=== PATIENT | female | born 1950 | race Caucasian/White ===

== ENCOUNTER → 2016-03-21 | Outpatient (CLI) | payer BC ==
--- NOTE | 2016-03-21 15:33 | BD ---
EXAMINATION TYPE: MG DEXA axial skeleton. DATE OF EXAM: 03/21/2016 9:51 AM CLINICAL HISTORY: 65-year-old female osteoporosis Height: 70 inches Weight: 167 pounds FRAX RISK QUESTIONS: Alcohol (3 or more units per day): no Family History (Parent hip fracture): unsure if mother broke hip Glucocorticoids (More than 3mos): no (Ex: prednisone, prednisolone, methylprednisolone, dexamethasone, and hydrocortisone). History of Fracture in Adulthood: yes Secondary Osteoporosis: 1. Type 1 Diabetes: no 2. Hyperthyroidism: no 3. Menopause before 45: no 4. Malnutrition: no 5. Chronic liver disease: no Rheumatoid Arthritis: no Current Tobacco Use: no RISK FACTORS HISTORY OF: History of Fracture: yes, ankle & thumb When: 2016 Family History of Osteoporosis: unsure Drink Alcohol: socially Active: no Diet low in dairy products/other sources of calcium: no Postmenopausal woman: yes Take estrogen and/or progesterone medications: no Lost more than 2 inches in height since high school: no Frequent falls: no Poor Health: no Hyperparathyroidism: no Adrenal Insufficiency: no MEDICATIONS: Prednisone or other steroids: no Thyroid Medications: no Osteoporosis Medications: no Additional Medications: blood pressure meds, cholesterol meds EXAM MEASUREMENTS: Bone mineral densitometry was performed using the [employer] System. Bone mineral density as measured about the Lumbar spine is: ----- L1-L4(G/cm2): 1.039 T Score Values are as follows: ----- L2: -1.5 ----- L3: -1.1 ----- L4: -1.2 ----- L1-L4: -1.2 Bone mineral density has: Increased 3.6% since study of: 12/01/2009 Bone mineral density about the R hip (g/cm2): 0.924 Bone mineral density about the L hip (g/cm2): 0.939 T Score values are as follows: -----R Neck: -0.7 -----L Neck: -0.8 -----R Intertrochanter: 0.0 -----L Intertrochanter: -1.0 Bone mineral density has: Decreased -5.1% since study of: 12/01/2009 IMPRESSION: Osteopenia is indicated by T score values in the lumbar spine. There is slightly increased risk of fracture and the patient may be considered for treatment. Re-Screen 2-5 years. NOTE: T-SCORE=SD OF THE YOUNG ADULT MEAN.
== END | disposition home or self-care (01) ==
LOC: RADBDWWP 09:05
PROVIDERS: ATTEND Family Medicine
DX: M85.88 Other specified disorders of bone density and structure, other site (principal)
CPT/HCPCS: 77080

== ENCOUNTER → 2016-12-28 | Outpatient (CLI) | payer BC ==
--- NOTE | 2016-12-31 08:00 | MM ---
Reason for exam: additional evaluation requested from prior study. Last mammogram was performed 5 years and 7 months ago. History: Patient is postmenopausal. Benign excisional biopsy of the right breast, 1989. 4 cyst aspirations of the right breast. Taking unspecified hormones for 1 year 6 months beginning at age 53. Physical Findings: Nurse did not find any significant physical abnormalities on exam. MG 3D Diag Mammo W/Cad CHRISTI Bilateral CC and MLO view(s) were taken. Prior study comparison: June 08, 2011, bilateral digital screening mammo w/CAD. October 30, 2007, bilateral digital screening mammogram. There are scattered fibroglandular densities. Finding: There is increasing architectural distortion in the upper outer quadrant of the right breast. These results were verbally communicated with the patient and result sheet given to the patient on 12/28/16. ASSESSMENT: Incomplete: need additional imaging evaluation, BI-RAD 0 RECOMMENDATION: Ultrasound of the right breast.
--- NOTE | 2016-12-31 08:05 | USB ---
Reason for exam: additional evaluation requested from abnormal screening. History: Patient is postmenopausal. Benign excisional biopsy of the right breast, 1989. 4 cyst aspirations of the right breast. Taking unspecified hormones for 1 year 6 months beginning at age 53. US Breast Limited RT Right breast ultrasound demonstrates a 2.3 x 2.2 x 2.1cm irregular, solid, shadowing lesion at 10 o'clock. These results were verbally communicated with the patient and result sheet given to the patient on 12/28/16. ASSESSMENT: Suspicious, BI-RAD 4 RECOMMENDATION: Ultrasound core biopsy of the right breast. Called Dr. Castañeda with mammographic findings and has scheduled an appointment for the patient for 01/31/17 at 9:[address] Moran. Biopsy scheduled for 01/10/17 at 12:20. PRELIMINARY REPORT CALLED AND FAXED TO DR. MORAN ON 12/31/16.
== END | disposition home or self-care (01) ==
LOC: RADMAMWWP 13:26
PROVIDERS: ATTEND Family Medicine
DX: N63.0 Unspecified lump in unspecified breast (principal); R92.8 Other abnormal and inconclusive findings on diagnostic imaging of breast
CPT/HCPCS: 76642; G0204; G0279

== ENCOUNTER 2017-02-06 07:50 | Day surgery (SDC) | payer BC ==
[2017-01-31 15:09] VITALS: BMI 24.0
[~2017-02-06 07:50] MED LIST: ALPRAZolam 0.5 MG TAB PO PRN; HEPARIN SODIUM,PORCINE 5,000 UNIT/ML 1 ML VIAL SQ ONE; HYDROmorphone 1 MG/ML 1 ML SYRINGE IVP PRN; LACTATED RINGERS 1,000 ML IV SCH; ONDANSETRON 4 MG/2 ML VIAL IVP PRN; Pre Op ABX Message 1 EACH MISC MISCELLANE ONE
[2017-02-06] MEDS ORDERED: LIDOCAINE 1% 20 ML VIAL (10MG/ML) FOR IV START INTRADERMA ONE (09:25)
[2017-02-06] MEDS ORDERED: ALPRAZolam 0.5 MG TAB PO ONE (09:31)
[2017-02-06] MEDS ORDERED: LIDOCAINE 1% INJ 10MG/ML (20 ML MDV) SQ ONE (09:47)
[2017-02-06 10:09] VITALS: RESP 16
--- NOTE | 2017-02-06 10:38 | NM ---
EXAMINATION TYPE: NM sentinel node injection DATE OF EXAM: 02/06/2017 COMPARISON: 01/10/2017 HISTORY: Right breast carcinoma with request for sentinel lymph node injection. TECHNIQUE AND FINDINGS: The procedure of sentinel lymph node injection was explained to the patient. The benefits, alternatives, and risks were discussed. An informed consent was then obtained. Overlying skin is cleaned with sterile alcohol. Lidocaine buffered with bicarbonate was used as anes thetic into the skin and subcutaneous tissue surrounding the nipple. Following this, 514 uCi Tc 99m Filtered Sulfur Colloid was injected into 4 equivalent doses at 12, 3, 6, and 9:00 position surroundi ng the right nipple intradermally. The injection sites were massaged by nuclear instructor for 10 minutes after injection. T he patient tolerated the procedure well without any immediate complication. The patient was kept in the radiology department for short stay after the procedure and then taken to surgery for surgical pr ocedure what is presumed intraoperative gamma probe will be used for sentinel lymph node detection. IMPRESSION: Right breast radiotracer injection for sentinel node localization as above.
[2017-02-06] MEDS ORDERED: ceFAZolin 1,000 MG VIAL ONE (11:03)
[2017-02-06] MEDS ORDERED: MIDAZOLAM 2 MG/2 ML VIAL ONE (11:03)
[2017-02-06] MEDS ORDERED: fentaNYL (PF) 50 MCG/ML 2 ML AMP ONE (11:03)
[2017-02-06] MEDS ORDERED: ePHEDrine SULFATE/0.9% NACL/PF 50 MG/5 ML SYRINGE IV ONE (11:03)
[2017-02-06] MEDS ORDERED: HYDROmorphone (PF) 1 MG/ML ONE (11:03)
[2017-02-06] MEDS ORDERED: LIDOCAINE 1% INJ 10MG/ML (20 ML MDV) ONE (11:03)
[2017-02-06] MEDS ORDERED: PROPOFOL 10 MG/ML 20 ML VIAL IV ONE (11:03)
[2017-02-06] MEDS ORDERED: METHYLENE BLUE 10 MG/ML (10 ML VIAL) MISCELLANE ONE (11:14)
[2017-02-06] MEDS ORDERED: SODIUM CHLORIDE 0.9% 100 ML with ceFAZolin 2,000 MG IV ONE ×2 (11:20)
[2017-02-06] MEDS ORDERED: LACTATED RINGERS 1,000 ML IV ONE (12:21)
[2017-02-06 13:17] VITALS: TEMP 97.4
[2017-02-06] MEDS ORDERED: HYDROcodone/APAP 5-325MG 1 EACH TAB PO PRN (13:17)
[2017-02-06] MEDS ORDERED: NALOXONE 0.4 MG/ML 1 ML VIAL IV PRN (13:17)
--- NOTE | 2017-02-06 13:39 | P.OP ---
Date of Procedure: 02/06/17 Procedure(s) Performed: PREOPERATIVE DIAGNOSIS: Right breast cancer POSTOPERATIVE DIAGNOSIS: Same PROCEDURE: Right Breast wire localization lumpectomy with sentinel lymph node biopsy and BioSorb placement SURGEON: Luisa EBL: Minimal ANESTHESIA: General COMPLICATIONS: None OPERATIVE PROCEDURE: Patient was placed on the operating room table in the supine position. 2 mL of methylene blue was injected into the subareolar space. The breast was then massaged for 5 minutes. The right axilla was addressed at that time. The hot spot in the right axilla was identified. A small curvilinear incision was made using the scalpel. Dissection down through the subcutaneous tissues took place using electrocautery. Using the neoprobe I identified a single hot and blue lymph node. This was sent to pathology for frozen section and was negative for malignancy. The subcutaneous tissues were closed using 3-0 Vicryl sutures. The skin was closed using 4-0 Monocryl sutures. The wire entrance site was then addressed. This was present at the 8: 00 location. A curvilinear incision was made adjacent to the wire entrance site. I followed the wire down into the breast tissue. An generous lumpectomy specimen then took place around the wire and palpable mass. Margins of 1-2 cm worth attempted to be achieved. Clinically I was concerned about the proximity of the palpable mass to the lateral and posterior margin. Once the lumpectomy was removed and additional posterior lateral margin was excised. The initial lumpectomy was painted the appropriate 6 colors. The new posterior and lateral margin were painted the corresponding color as well. The BioSorb sizers were utilized. The 3 x 4 cm BioSorb was placed within the lumpectomy cavity and sutured to the surrounding tissues using 3-0 Vicryl sutures. The lumpectomy cavity was closed using 3-0 Vicryl sutures. The skin was closed using a running 4-0 Monocryl stitch. Steri-Strips and sterile dressings were applied. DISPOSITION: Stable to recovery room
--- NOTE | 2017-02-06 14:00 | MM ---
EXAMINATION TYPE: MG pre op needle loc RT, MG surgical specimen RT DATE OF EXAM: 02/06/2017 COMPARISON: Exams dating back to 12/28/2016 CLINICAL HISTORY: Right breast cancer at the 10:00 position TECHNIQUE: Needle localization with wire placement and surgical excision of area of concern in the right breast. FINDINGS: The procedure of needle localization with wire placement and than surgical excision was explained to the patient. Benefits, alternatives, and risks were discussed. An informed consent was then obtained. The shortest pathway for procedure was chosen. Shortest pathway was lateral to medial approach. The overlying skin was prepped and draped in usual sterile fashion. 10 cc of 1% lidocaine was anesthetic into the skin and subcutaneous tissue up to the level of area of concern. A 7 cm needle was used. It was placed via a lateral to medial approach under mammographic guidance. Subsequent 90 degrees mammogram show the needle to be in satisfactory position relative to the targeted area (mammographic mass in ribbon biopsy marker). At this point, wire was placed and the needle was withdrawn. The wire was fixed to patient's skin. Images were marked for surgeon. The patient tolerated the procedure well without any immediate complication. The patient was kept in the radiology department for short stay after the procedure and then taken to surgery for surgical excision. Targeted mammographic spiculated mass and ribbon-shaped biopsy marker as well as the wire are identified in specimen mammogram. IMPRESSION: Successful, uncomplicated needle localization with wire placement and surgical excision of the biopsy-proven invasive ductal carcinoma at the 10: 00 position within the right breast, full pathology results to follow. Pathology Results: Malignant A. SENTINEL LYMPH NODE #1, BIOPSY: LYMPH NODE NEGATIVE FOR METASTASIS. CK7 AND HAILEY IMMUNOPEROXIDASE STAINS ARE CONFIRMATORY (CONTROLS APPROPRIATE). B. BREAST, RIGHT, LUMPECTOMY: INVASIVE DUCTAL CARCINOMA INVOLVING THE ORANGE INKED (LATERAL) MARGIN. FOCAL DUCTAL CARCINOMA IN SITU (DCIS), MARGINS NEGATIVE. SEE SURGICAL PATHOLOGY CANCER CASE SUMMARY AND COMMENT. Recommendation Surgical consult of the right breast. (treatment and follow up) [facility]
[2017-02-06] MEDS ORDERED: HYDROcodone/APAP 5-325MG 1 EACH TAB PO ONE (14:55)
[2017-02-06 15:32] VITALS: BP 117/60; PULSE 83
--- NOTE | 2017-02-09 15:55 | CDI ---
Outpatient Documentation Clarification Form Date: 02/09/17 CDS/Manager Lvn Name: Ophelia Rogers Phone: If you have question, contact Leatha Mims Regulatory Submissions Specialist at M-F 8:30 am to 6pm. Patient Name: RELL LOPEZ Admit Date: 02/06/17 Discharge Date: 02/06/17 ATTENTION: The Clinical Documentation Specialists (CDI) and [facility] Coding Staff appreciate your assistance in clarifying documentation. Please respond to the clarification below the line at the bottom and electronically sign. The CDI & [facility] Coding staff will review the response and follow-up if needed. Please note: Queries are made part of the Legal Health Record. If you have any questions, please contact the author of this message via ITS or call the Regulatory Submissions Specialist. Dr. Moran, What is the depth of sentinel lymph node biopsy? For coding purposes, we need to know if it was deep or superficial. The operative report just states dissection down through the subcutaneous tissues, which isnt enough information to determine if it was deep or superficial. ___ For sentinel lymph node biopsies these would be considered deep dissections. Please do not query me again in the future regarding sentinel lymph node biopsies and assume that these were deep. Refer to CPT code 57755. MTDD
== END 2017-02-06 15:36 | disposition home or self-care (01) ==
LOC: OR 07:50
PROVIDERS: ATTEND Surgery
DX: C50.411 Malignant neoplasm of upper-outer quadrant of right female breast (principal); Z17.0 Estrogen receptor positive status [ER+]; I10 Essential (primary) hypertension; E78.5 Hyperlipidemia, unspecified; J68.0 Bronchitis and pneumonitis due to chemicals, gases, fumes and vapors; F41.9 Anxiety disorder, unspecified; F32.9 Major depressive disorder, single episode, unspecified; K21.9 Gastro-esophageal reflux disease without esophagitis; Z79.899 Other long term (current) drug therapy; Z79.2 Long term (current) use of antibiotics; Z80.0 Family history of malignant neoplasm of digestive organs
CPT/HCPCS: 19301; 88342; 88331; 88307; 88341; 76098; 19281; 38792; 38525; A4648; A9541; J2250; J1644; J2405; J0690; J2001; Q9968; J3010; J1170; J2704

== ENCOUNTER → 2017-06-06 | Outpatient (CLI) | payer BC ==
--- NOTE | 2017-06-06 14:38 | BD ---
EXAMINATION TYPE: MG DEXA axial skeleton. DATE OF EXAM: 06/06/2017 COMPARISON: 2017 CLINICAL HISTORY: Postmenopausal female. Osteoporosis screening. Height: 5 ft 8 1/4 in Weight: 156 FRAX RISK QUESTIONS: Alcohol (3 or more units per day): NO Family History (Parent hip fracture): YES Glucocorticoids (More than 3mos): NO (Ex: prednisone, prednisolone, methylprednisolone, dexamethasone, and hydrocortisone). History of Fracture in Adulthood: YES Secondary Osteoporosis: 1. Type 1 Diabetes: NO 2. Hyperthyroidism: NO 3. Menopause before 45: NO 4. Malnutrition: NO 5. Chronic liver disease: NO Rheumatoid Arthritis: NO Current Tobacco Use: NO RISK FACTORS HISTORY OF: Family History of Osteoporosis: NO Active: YES Postmenopausal woman: AGE EARLY 50'S MEDICATIONS: Additional Medications: BENICAR, ZOCOR,ADIVAN, ZOLOFT, FEMARA, Additional History: BREAST CANCER 2016 RADIATION JUST FINISHED APRIL 2017 EXAM MEASUREMENTS: Bone mineral densitometry was performed using the [employer] System. Bone mineral density as measured about the Lumbar spine is: ----- L1-L4(G/cm2): 1.062 T Score Values are as follows: ----- L2: -1.3 ----- L3: -1.1 ----- L4: -0.6 ----- L1-L4: -1.0 Bone mineral density has: INCREASED 3.1 % since study of: 2017 Bone mineral density about the R hip (g/cm2): 0.950 Bone mineral density about the L hip (g/cm2): 0.886 T Score values are as follows: -----R Neck: -1.1 -----L Neck: -0.6 -----R Total: -0.5 -----L Total: -1.0 Bone mineral density has: DECREASED -4.1 % since study of: 2017 IMPRESSION: Osteopenia (T Score between -2.5 and -1). There is slightly increased risk of fracture and the patient may be considered for treatment. Re-Screen 2-5 years. NOTE: T-SCORE=SD OF THE YOUNG ADULT MEAN.
== END | disposition home or self-care (01) ==
LOC: RADBDWWP 09:03
PROVIDERS: ATTEND Internal Medicine Hematology & Oncology
DX: C50.411 Malignant neoplasm of upper-outer quadrant of right female breast (principal); M85.88 Other specified disorders of bone density and structure, other site; N95.1 Menopausal and female climacteric states; Z79.899 Other long term (current) drug therapy
CPT/HCPCS: 77080

== ENCOUNTER → 2017-10-22 | Outpatient (CLI) | payer BC ==
--- NOTE | 2017-10-22 10:53 | MM ---
Reason for exam: additional evaluation requested from prior study. Last mammogram was performed 9 months ago. History: Patient is postmenopausal and has history of breast cancer at age 66. Family history of breast cancer in maternal cousin at age 45. Malignant MG pre op needle loc RT of the right breast, February 06, 2017. Lumpectomy of the right breast, February 06, 2017. Malignant US biopsy breast VAD RT of the right breast, January 10, 2017. Benign excisional biopsy of the right breast, 1989. 4 cyst aspirations of the right breast. Taking unspecified hormones for 1 year 6 months beginning at age 53. Physical Findings: Nurse Summary: 1cm nodule in the right breast at 10-11 o'clock at scar (nurse kp). MG 3D Diag Mammo W/Cad CHRISTI Bilateral CC and MLO view(s) were taken. XCCL view(s) were taken of the right breast. Prior study comparison: January 10, 2017, right breast MG diagnostic mammo RT wo CAD. December 28, 2016, bilateral MG 3d diag mammo w/cad CHRISTI. Post surgical changes right upper quadrant. Benign calcifications in the left breast. Palpable corresponds to biopsy/surgical site. These results were verbally communicated with the patient and result sheet given to the patient on 10/22/17. ASSESSMENT: Probably benign, BI-RAD 3 RECOMMENDATION: Follow-up diagnostic mammogram of both breasts in 1 year.
--- NOTE | 2017-10-22 10:54 | USB ---
Reason for exam: clinical finding. History: Patient is postmenopausal and has history of breast cancer at age 66. Family history of breast cancer in maternal cousin at age 45. Malignant MG pre op needle loc RT of the right breast, February 06, 2017. Lumpectomy of the right breast, February 06, 2017. Malignant US biopsy breast VAD RT of the right breast, January 10, 2017. Benign excisional biopsy of the right breast, 1989. 4 cyst aspirations of the right breast. Taking unspecified hormones for 1 year 6 months beginning at age 53. Indicated problem(s): palpable abnormality in the right breast. US Breast Limited RT Right limited breast ultrasound including focal area of concern, retroareolar and axilla demonstrates a 2.9 x 2.2 x 3.6cm lobular, hypoechoic lesion at 10 o'clock BB and a 0.4 x 0.3 x 0.4cm oval, hypoechoic lesion at the axilla tail. These results were verbally communicated with the patient and result sheet given to the patient on 10/22/17. ASSESSMENT: Probably benign, BI-RAD 3 RECOMMENDATION: Ultrasound of the right breast in 6 months.
== END ==
LOC: RADMAMWWP 09:23
PROVIDERS: ATTEND Radiology Radiation Oncology
DX: C50.411 Malignant neoplasm of upper-outer quadrant of right female breast (principal); Z92.3 Personal history of irradiation
CPT/HCPCS: 77062; 77066

== ENCOUNTER → 2018-04-22 | Outpatient (CLI) | payer BC ==
--- NOTE | 2018-04-22 10:05 | USB ---
Reason for exam: follow-up at short interval from prior study. History: Patient is postmenopausal and has history of breast cancer at age 66. Family history of breast cancer in maternal cousin at age 45. Malignant MG pre op needle loc RT of the right breast, February 06, 2017. Lumpectomy of the right breast, February 06, 2017. Malignant US biopsy breast VAD RT of the right breast, January 10, 2017. Benign excisional biopsy of the right breast, 1989. 4 cyst aspirations of the right breast. Taking unspecified hormones for 1 year 6 months beginning at age 53. Physical Findings: Nurse Summary: scar, palpable lump, thickening (nurse dw). US Breast RT Right complete breast ultrasound includes all four quadrants, the retroareolar region and axilla. Finding demonstrates a 2.6 x 2.1 x 2.9cm hypoechoic lesion at 10 o'clock. Likely reflects bioabsorb material, 6 month follow up recommended. These results were verbally communicated with the patient and result sheet given to the patient on 04/22/18. ASSESSMENT: Probably benign, BI-RAD 3 RECOMMENDATION: Follow-up diagnostic mammogram of both breasts in 6 months. Ultrasound of the right breast in 6 months.
== END ==
LOC: RADUSWWP 08:51
PROVIDERS: ATTEND Surgery
DX: R92.8 Other abnormal and inconclusive findings on diagnostic imaging of breast (principal)

== ENCOUNTER → 2018-05-07 | Outpatient (CLI) | payer BC ==
[2018-05-07 10:14] VITALS: BP 128/58; PULSE 95; RESP 18; TEMP 97.5; BMI 22.2
--- NOTE | 2018-05-07 11:15 | P.HPOB ---
History of Present Illness H&P Date: 05/07/18 Chief Complaint: The patient is here for her routine gynecologic exam. This is a 67-year-old with an LMP of 2003. The patient is here to establish with this office. She states that has been about 5 years since her last pelvic exam. She is without gynecologic complaints and denies any postmenopausal bleeding. She is in the process of breaking up with her boyfriend. She is uncertain if he has been monogamous in their relationship. Review of Systems Her weight has been stable. She denies respiratory, cardiac and G.I. problems. She is currently having some relationship problems with her boyfriend and believes they will be breaking up. This has been an emotional time for her. She denies problems with falling. : she denies any significant problems with urinary leakage. Past Medical History Past Medical History: Cancer, Hyperlipidemia, Hypertension, Osteoarthritis (OA) Additional Past Medical History / Comment(s): 01/2017 RT BREAST CANCER status post lumpectomy and radiation therapy. History of osteopenia. 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 Previous colonization of the cervix in 1988. History of Any Multi-Drug Resistant Organisms: None Reported Past Surgical History: Breast Surgery, Tonsillectomy Additional Past Surgical History / Comment(s): D&C with C 1988, Benign cyst aspirations right breast, Benign excisional biopsy right breast 1989; rt breast lumpectomy 01/2017; COLONOSCOPY 2001. Past Anesthesia/Blood Transfusion Reactions: Previous Problems w/ Anesthesia Additional Past Anesthesia/Blood Transfusion Reaction / Comment(s): "Sensitivity to anesthesia" Past Psychological History: Anxiety, Depression Smoking Status: Never smoker Past Alcohol Use History: Occasional (3 per week) Additional Past Alcohol Use History / Comment(s): Patient states she only smoked a few times in college, did not have a smoking habit. Past Drug Use History: None Reported Additional History: She is single. She has been with her boyfriend since 2009, but is unsure if they will still be together in the near future. - Past Family History Father Family Medical History: Cancer Additional Family Medical History / Comment(s): Colon cancer. Mother Family Medical History: Deep Vein Thrombosis (DVT) Additional Family Medical History / Comment(s): A maternal cousin had breast cancer. A maternal great aunt had ovarian cancer. Medications and Allergies Home Medications Medication Instructions Recorded Confirmed Type LORazepam [Ativan] 1 mg PO DAILY PRN 01/02/17 05/07/18 History Olmesartan/Hydrochlorothiazide 1 tab PO DAILY 01/02/17 05/07/18 History [Benicar Hct 20-12.5 mg Tablet] Sertraline [Zoloft] 100 mg PO DAILY 01/02/17 05/07/18 History Simvastatin [Zocor] 40 mg PO HS 01/02/17 05/07/18 History Hydrocodone/Acetaminophen [[place] 1 - 2 each PO Q4HR PRN #30 tab 02/06/17 05/07/18 Rx 5-325] Calcium Carb-Vit D 500Mg-200Un 1 each PO DAILY 05/07/18 05/07/18 History [Oscal 500+D] Cholecalciferol (Vitamin D3) 2,000 unit PO DAILY 05/07/18 05/07/18 History [Vitamin D3] Allergies Allergy/AdvReac Type Severity Reaction Status Date / Time No Known Allergies Allergy Verified 05/07/18 10:01 Exam Vital Signs Temp Pulse Resp BP Pulse Ox 05/07/18 10:05 97.5 F L 95 18 128/58 98 Intake and Output 05/06/18 05/07/18 05/07/18 22:59 06:59 14:59 Other: Weight 70.307 kg Height 5'10", weight 155 pounds, BMI 22.2. This is a well-developed well-nourished white female who is alert and oriented times 3 in no acute distress. HEENT: Within normal limits. NECK: Supple without mass or thyromegaly. CHEST AND LUNGS: Clear to auscultation. HEART: Regular rate and rhythm. BREASTS: there is a slight indentation at the 10 o'clock position of the right breast consistent with her previous lumpectomy. It is also firm in this area which the patient states has been followed by her doctors after her lumpectomy and radiation. The breasts are nontender. There are no other masses. AXILLARY EXAM: Negative for adenopathy. BACK: Negative for CVA tenderness. ABDOMEN: Soft, nontender, without palpable masses. PELVIC EXAM: Normal external genitalia with mild to moderate atrophy. Cervix and vagina appear normal with moderate atrophy. The cervix is nearly flush with the back of the vagina consistent with her previous conization. The cervix is stenotic secondary to atrophy and the conization. There is no unusual discharge. There is no evidence of prolapse. The uterus is midposition, nongravid size and nontender. There are no palpable adnexal masses or tenderness. RECTAL EXAM: rectovaginal exam is negative for mass or tenderness and is negative for occult blood. EXTREMITIES: Nontender. IMPRESSION: 1. 67-year-old menopausal female with normal gynecologic exam. 2. History of right breast cancer status post lumpectomy and radiation therapy in 2018. 3. History osteopenia. 4. History of previous cold knife conization of the cervix in 1988. PLAN: 1. Because of her history of conization of the cervix and uncertainty of adequacy of screening over the years, we will continue cervical screening. Pap smear was performed. 2. Self breast awareness was discussed with the patient. 3. Breast imaging and cancer screening will be done through her breast cancer doctors. Her last bilateral mammogram was on 10/22/2017 and this will be repeated in one year. 4. GC and Chlamydia screening from the cervix has been obtained. The patient is declining blood STD testing at this time. STD prevention was discussed. Stress the importance of limiting sexual partners and using condoms if she is sexually active. 5. She did receive a flu shot this past fall. 6.Osteoporosis prevention was discussed. I have stressed the importance of adequate calcium, vitamin D and regular exercise. Recommended amounts of calcium and vitamin D were also discussed. Bone density testing will be done through Dr. Rosenthal. Her last one was on 06/06/2017 and showed osteopenia. 7. She's due for colonoscopy and she states she will be seeing Dr. Moran for this. 8.She was advised to return in one year for her annual well woman exam.
[2018-05-08 13:24] LABS: C. trachomatis,PCR Negative (Neg,Equiv); Chlamydia trachomatis Source Cervix; N. gonorrhoeae,PCR Negative (Neg,Equiv); Neisseria Source Cervix
== END | disposition home or self-care (01) ==
LOC: WWCWWP 09:46
PROVIDERS: ATTEND Obstetrics & Gynecology
DX: Z11.3 Encounter for screening for infections with a predominantly sexual mode of transmission (principal)
CPT/HCPCS: 87491; 87591

== ENCOUNTER → 2018-10-23 | Outpatient (CLI) | payer BC ==
--- NOTE | 2018-10-23 10:40 | USB ---
Reason for exam: follow-up at short interval from prior study. History: Patient is postmenopausal and has history of breast cancer at age 66. Family history of breast cancer in maternal cousin at age 45. Malignant MG pre op needle loc RT of the right breast, February 06, 2017. Lumpectomy of the right breast, February 06, 2017. Malignant US biopsy breast VAD RT of the right breast, January 10, 2017. Benign excisional biopsy of the right breast, 1989. 4 cyst aspirations of the right breast. Radiation therapy of the right breast. Taking antineoplastic for 1 year beginning at age 66. Taking unspecified hormones for 1 year 6 months beginning at age 53. US Breast RT Right complete breast ultrasound includes all four quadrants, the retroareolar region and axilla. Finding demonstrates a 2.6 x 2.3 x 1.5cm lesion at 10 o'clock, stable post surgical changes. No new significant cystic or solid lesion greater than 0.5cm. These results were verbally communicated with the patient and result sheet given to the patient on 10/23/18. ASSESSMENT: Benign, BI-RAD 2 RECOMMENDATION: Follow-up diagnostic mammogram of both breasts in 1 year.
--- NOTE | 2018-10-23 10:41 | MM ---
Reason for exam: additional evaluation requested from prior study. Last mammogram was performed 1 year ago. History: Patient is postmenopausal and has history of breast cancer at age 66. Family history of breast cancer in maternal cousin at age 45. Malignant MG pre op needle loc RT of the right breast, February 06, 2017. Lumpectomy of the right breast, February 06, 2017. Malignant US biopsy breast VAD RT of the right breast, January 10, 2017. Benign excisional biopsy of the right breast, 1989. 4 cyst aspirations of the right breast. Radiation therapy of the right breast. Taking antineoplastic for 1 year beginning at age 66. Taking unspecified hormones for 1 year 6 months beginning at age 53. Physical Findings: Nurse did not find any significant physical abnormalities on exam. MG 3D Diag Mammo W/Cad CHRISTI Bilateral CC and MLO view(s) were taken. Prior study comparison: October 22, 2017, bilateral MG 3d diag mammo w/cad CHRISTI. January 10, 2017, right breast MG diagnostic mammo RT wo CAD. The breast tissue is heterogeneously dense. This may lower the sensitivity of mammography. Finding: There is an oval mass in the posterior position of the right breast with anterior scar/distortion. There is no discrete abnormality. New finding since October 22, 2017. These results were verbally communicated with the patient and result sheet given to the patient on 10/23/18. ASSESSMENT: Benign, BI-RAD 2 RECOMMENDATION: Follow-up diagnostic mammogram of both breasts in 1 year.
== END | disposition home or self-care (01) ==
LOC: RADMAMWWP 08:45
PROVIDERS: ATTEND Surgery
DX: R92.8 Other abnormal and inconclusive findings on diagnostic imaging of breast (principal)
CPT/HCPCS: 77062; 77066

== ENCOUNTER 2018-11-20 17:48 | Inpatient (IN) | payer BC, MEDICARE ==
[2018-11-20] MEDS ORDERED: SODIUM CHLORIDE 0.9% 1,000 ML IV ONE (18:20)
--- NOTE | 2018-11-20 18:57 | ED ---
General Adult HPI - General Chief complaint: Altered Mental Status Stated complaint: Mental health Time Seen by Provider: 11/20/18 18:03 Source: patient Mode of arrival: ambulatory Limitations: no limitations - History of Present Illness Initial comments: 68-year-old female patient presents to the emergency department today for multiple complaints. Patient states that she feels unwell like she may be developing a urinary tract infection. States that she is having some blurred vision. Denies any headache or dizziness. She states that she has been having some dysuria, urinary frequency, and nausea. Denies any vomiting. Denies any back pain. Patient states that she has also been very depressed and anxious. Patient states that she tried to retire from her job, she withdrew Social Security. States she felt like she did this way too early and that she does not have enough money to sustain her and long term. States this is causing her to be very frazzled and upset. States that she is having thoughts of suicide due to this. States that she used to be on depression medication but stopped taking them over the summer because she didn't feel like she needed them. Denies any alcohol or drug use. Patient denies any recent rash, shortness breath, chest pain, diarrhea, constipation, numbness, tingling, dizziness, weakness, or any other complaints. - Related Data Home Medications Medication Instructions Recorded Confirmed Olmesartan/Hydrochlorothiazide 1 tab PO DAILY 01/02/17 11/20/18 [Benicar Hct 20-12.5 mg Tablet] Simvastatin [Zocor] 40 mg PO DAILY 01/02/17 11/20/18 LORazepam [Ativan] 0.5 mg PO DAILY PRN 11/20/18 11/20/18 Allergies Allergy/AdvReac Type Severity Reaction Status Date / Time No Known Allergies Allergy Verified 11/20/18 20:07 Review of Systems ROS Statement: Those systems with pertinent positive or pertinent negative responses have been documented in the HPI. ROS Other: All systems not noted in ROS Statement are negative. Past Medical History Past Medical History: Cancer, Hyperlipidemia, Hypertension, Osteoarthritis (OA) Additional Past Medical History / Comment(s): 01/2017 RT BREAST CANCER status post lumpectomy and radiation therapy. History of osteopenia. 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 Previous colonization of the cervix in 1988. History of Any Multi-Drug Resistant Organisms: None Reported Past Surgical History: Breast Surgery, Tonsillectomy Additional Past Surgical History / Comment(s): D&C with [facility] 1988, Benign cyst aspirations right breast, Benign excisional biopsy right breast 1989; rt breast lumpectomy 01/2017; COLONOSCOPY 2001. Past Anesthesia/Blood Transfusion Reactions: Previous Problems w/ Anesthesia Additional Past Anesthesia/Blood Transfusion Reaction / Comment(s): "Sensitivity to anesthesia" Past Psychological History: Anxiety, Depression Smoking Status: Never smoker Past Alcohol Use History: Occasional Past Drug Use History: None Reported - Past Family History Father Family Medical History: Cancer Additional Family Medical History / Comment(s): Colon cancer. Mother Family Medical History: Deep Vein Thrombosis (DVT) Additional Family Medical History / Comment(s): A maternal cousin had breast cancer. A maternal great aunt had ovarian cancer. General Exam Limitations: no limitations General appearance: alert, in no apparent distress, other (Physical well- developed, well-nourished adult female patient in no acute distress. Vital signs upon presentation are temperature 98.3F, pulse 73, respirations 16, blood pressure 150/89, pulse ox 97% on room air.) Eye exam: Present: normal appearance, PERRL, EOMI. Absent: scleral icterus, conjunctival injection, periorbital swelling ENT exam: Present: normal exam, normal oropharynx, mucous membranes moist Respiratory exam: Present: normal lung sounds bilaterally. Absent: respiratory distress, wheezes, rales, rhonchi, stridor Cardiovascular Exam: Present: regular rate, normal rhythm, normal heart sounds. Absent: systolic murmur, diastolic murmur, rubs, gallop, clicks GI/Abdominal exam: Present: soft, tenderness (Suprapubic tenderness), normal bowel sounds. Absent: distended, guarding, rebound, rigid Neurological exam: Present: alert, oriented X3, CN II-XII intact Psychiatric exam: Present: normal affect, normal mood Skin exam: Present: warm, dry, intact, normal color. Absent: rash Course Vital Signs 11/20/18 11/20/18 11/20/18 17:49 19:47 23:54 Temperature 98.3 F 98.4 F 98.4 F Pulse Rate 73 67 91 Respiratory 16 18 18 Rate Blood Pressure 150/89 141/91 167/75 O2 Sat by Pulse 97 98 98 Oximetry EKG Findings - EKG Comments: EKG Findings:: EKG obtained at 1844 shows normal sinus rhythm with a ventricular rate of 68, IL interval 178, QRS duration 80, QT 420, QTC 446. No evidence of ST elevation or depression. Medical Decision Making - Medical Decision Making 68-year-old female patient presented to the emergency department today for evaluation of possible urinary tract infection. Patient is also reporting feeling that she is going to . She does report depression, anxiety regarding her finances. Shows report suicidal ideation. Physical examination is unremarkable. Labs reviewed and are relatively unremarkable. Urinalysis did show sinus infection. We will give IV dose of Rocephin here in the emergency department. She was seen and evaluated by emergency psychiatric services, it is felt that she would benefit from inpatient admission, she'll be transferred to the mental health unit. - Lab Data Result diagrams: 11/20/18 18:41 11/20/18 18:41 Lab Results 11/20/18 11/20/18 11/20/18 Range/Units 18:41 18:41 18:41 WBC 6.2 (3.8-10.6) k/uL RBC 4.33 (3.80-5.40) m/uL Hgb 13.4 (11.4-16.0) gm/dL Hct 39.1 (34.0-46.0) % MCV 90.2 (80.0-100.0) fL MCH 30.9 (25.0-35.0) pg MCHC 34.3 (31.0-37.0) g/dL RDW 12.6 (11.5-15.5) % Plt Count 311 (150-450) k/uL Neutrophils % 56 % Lymphocytes % 33 % Monocytes % 8 % Eosinophils % 2 % Basophils % 0 % Neutrophils # 3.5 (1.3-7.7) k/uL Lymphocytes # 2.0 (1.0-4.8) k/uL Monocytes # 0.5 (0-1.0) k/uL Eosinophils # 0.1 (0-0.7) k/uL Basophils # 0.0 (0-0.2) k/uL PT 9.7 (9.0-12.0) sec INR 0.9 (<1.2) APTT 22.5 (22.0-30.0) sec Sodium 137 (137-145) mmol/L Potassium 3.8 (3.5-5.1) mmol/L Chloride 103 (98-107) mmol/L Carbon Dioxide 25 (22-30) mmol/L Anion Gap 9 mmol/L BUN 9 (7-17) mg/dL Creatinine 0.55 (0.52-1.04) mg/dL Est GFR (CKD-EPI)AfAm >90 (>60 ml/min/1.73 sqM) Est GFR (CKD-EPI)NonAf >90 (>60 ml/min/1.73 sqM) Glucose 93 (74-99) mg/dL Calcium 9.5 (8.4-10.2) mg/dL Total Bilirubin 0.2 (0.2-1.3) mg/dL AST 16 (14-36) U/L ALT 18 (9-52) U/L Alkaline Phosphatase 77 (38-126) U/L Troponin I (0.000-0.034) ng/mL Total Protein 6.9 (6.3-8.2) g/dL Albumin 4.0 (3.5-5.0) g/dL Urine Color Urine Appearance (Clear) Urine pH (5.0-8.0) Ur Specific [place] (1.001-1.035) Urine Protein (Negative) Urine Glucose (UA) (Negative) Urine Ketones (Negative) Urine Blood (Negative) Urine Nitrite (Negative) Urine Bilirubin (Negative) Urine Urobilinogen (<2.0) mg/dL Ur Leukocyte Esterase (Negative) Urine RBC (0-5) /hpf Urine WBC (0-5) /hpf Urine Bacteria (None) /hpf Urine Opiates Screen (NotDetected) Ur Oxycodone Screen (NotDetected) Urine Methadone Screen (NotDetected) Ur Propoxyphene Screen (NotDetected) Ur Barbiturates Screen (NotDetected) U Tricyclic Antidepress (NotDetected) Ur Phencyclidine Scrn (NotDetected) Ur Amphetamines Screen (NotDetected) U Methamphetamines Scrn (NotDetected) U Benzodiazepines Scrn (NotDetected) Urine Cocaine Screen (NotDetected) U Marijuana (THC) Screen (NotDetected) 11/20/18 11/20/18 11/20/18 Range/Units 18:41 19:09 19:09 WBC (3.8-10.6) k/uL RBC (3.80-5.40) m/uL Hgb (11.4-16.0) gm/dL Hct (34.0-46.0) % MCV (80.0-100.0) fL MCH (25.0-35.0) pg MCHC (31.0-37.0) g/dL RDW (11.5-15.5) % Plt Count (150-450) k/uL Neutrophils % % Lymphocytes % % Monocytes % % Eosinophils % % Basophils % % Neutrophils # (1.3-7.7) k/uL Lymphocytes # (1.0-4.8) k/uL Monocytes # (0-1.0) k/uL Eosinophils # (0-0.7) k/uL Basophils # (0-0.2) k/uL PT (9.0-12.0) sec INR (<1.2) APTT (22.0-30.0) sec Sodium (137-145) mmol/L Potassium (3.5-5.1) mmol/L Chloride (98-107) mmol/L Carbon Dioxide (22-30) mmol/L Anion Gap mmol/L BUN (7-17) mg/dL Creatinine (0.52-1.04) mg/dL Est GFR (CKD-EPI)AfAm (>60 ml/min/1.73 sqM) Est GFR (CKD-EPI)NonAf (>60 ml/min/1.73 sqM) Glucose (74-99) mg/dL Calcium (8.4-10.2) mg/dL Total Bilirubin (0.2-1.3) mg/dL AST (14-36) U/L ALT (9-52) U/L Alkaline Phosphatase (38-126) U/L Troponin I <0.012 (0.000-0.034) ng/mL Total Protein (6.3-8.2) g/dL Albumin (3.5-5.0) g/dL Urine Color Light Yellow Urine Appearance Clear (Clear) Urine pH 5.5 (5.0-8.0) Ur Specific [place] 1.004 (1.001-1.035) Urine Protein Negative (Negative) Urine Glucose (UA) Negative (Negative) Urine Ketones Negative (Negative) Urine Blood Negative (Negative) Urine Nitrite Negative (Negative) Urine Bilirubin Negative (Negative) Urine Urobilinogen <2.0 (<2.0) mg/dL Ur Leukocyte Esterase Large H (Negative) Urine RBC 1 (0-5) /hpf Urine WBC 20 H (0-5) /hpf Urine Bacteria Rare H (None) /hpf Urine Opiates Screen Not Detected (NotDetected) Ur Oxycodone Screen Not Detected (NotDetected) Urine Methadone Screen Not Detected (NotDetected) Ur Propoxyphene Screen Not Detected (NotDetected) Ur Barbiturates Screen Not Detected (NotDetected) U Tricyclic Antidepress Not Detected (NotDetected) Ur Phencyclidine Scrn Not Detected (NotDetected) Ur Amphetamines Screen Not Detected (NotDetected) U Methamphetamines Scrn Not Detected (NotDetected) U Benzodiazepines Scrn Not Detected (NotDetected) Urine Cocaine Screen Not Detected (NotDetected) U Marijuana (THC) Screen Not Detected (NotDetected) - Radiology Data Radiology results: report reviewed, image reviewed CT brain without contrast was obtained. Report was reviewed in its entirety. Impression by Dr. Flores shows negative computed tomography scan of the brain. Right maxillary sinusitis. Disposition Clinical Impression: Suicidal ideations, Anxiety Disposition: TRANSFER TO PSYCH HOSP/UNIT Condition: Serious - Out of Hospital Transfer - Req. Specs Out of Hospital Transfer - Requested Specifics: Psychiatric Non-ICU ([facility])
[2018-11-20 19:06] LABS: Basophils % (A) 0 %; Eosinophils # (A) 0.1 k/uL (0-0.7); Eosinophils % (A) 2 %; HCT 39.1 % (34.0-46.0); HGB 13.4 gm/dL (11.4-16.0); Lymphocytes % (A) 33 %; MCH 30.9 pg (25.0-35.0); MCHC 34.3 g/dL (31.0-37.0); MCV 90.2 fL (80.0-100.0); Mean Platelet Volume 5.4; Monocytes # (A) 0.5 k/uL (0-1.0); Monocytes % (A) 8 %; Neutrophils # (A) 3.5 k/uL (1.3-7.7); Neutrophils % (A) 56 %; Platelet Count 311 k/uL (150-450); RBC 4.33 m/uL (3.80-5.40); RDW 12.6 % (11.5-15.5); WBC 6.2 k/uL (3.8-10.6)
[2018-11-20 19:19] LABS: ALT 18 U/L (9-52); AST 16 U/L (14-36); African American GFR (CKD) >90 (>60 ml/min/1.73 sqM); Alkaline Phosphatase 77 U/L (38-126); Anion Gap 9 mmol/L; Blood Urea Nitrogen 9 mg/dL (7-17); Calcium 9.5 mg/dL (8.4-10.2); Carbon Dioxide 25 mmol/L (22-30); Chloride 103 mmol/L (98-107); Glucose 93 mg/dL (74-99); Potassium 3.8 mmol/L (3.5-5.1); Sodium 137 mmol/L (137-145); Total Bilirubin 0.2 mg/dL (0.2-1.3); Total Protein 6.9 g/dL (6.3-8.2)
[2018-11-20 19:20] LABS: INR 0.9 (<1.2); Partial Thromboplastin Time 22.5 sec (22.0-30.0); Prothrombin Time 9.7 sec (9.0-12.0)
[2018-11-20 19:25] LABS: Appearance,Urine Clear (Clear); Bacteria,Urine Rare /hpf; Bilirubin,Urine Negative (Negative); Blood,Urine Negative (Negative); Color,Urine Light Yellow; Glucose,Urine (UA) Negative (Negative); Ketones,Urine Negative (Negative); Leukocyte Esterase,Urine Large (Negative); Nitrite,Urine Negative (Negative); PH, Urine 5.5 (5.0-8.0); Protein,Urine Negative (Negative); RBC,Urine 1 /hpf (0-5); Specific Gravity,Urine 1.004 (1.001-1.035); Urobilinogen,Urine <2.0 mg/dL (<2.0); WBC,Urine 20 /hpf (0-5)
[2018-11-20 19:30] LABS: Amphetamine Screen,Urine Not Detected (NotDetected); Barbiturate Screen,Urine Not Detected (NotDetected); Benzodiazepines Screen,Urine Not Detected (NotDetected); Cocaine Screen,Urine Not Detected (NotDetected); Methadone Screen, Urine Not Detected (NotDetected); Opiate Screen,Urine Not Detected (NotDetected); Oxycodone Screen, Urine Not Detected (NotDetected); Phencyclidine Screen,Urine Not Detected (NotDetected); Tricyclic Antidepressant,Urine Not Detected (NotDetected); Urn Cannabinoid Scrn Not Detected (NotDetected)
[2018-11-20] MEDS ORDERED: cefTRIAXone IN SWFI 1,000 MG/10 ML SYRINGE IVP STA (19:37)
--- NOTE | 2018-11-20 20:27 | CT ---
EXAMINATION TYPE: CT brain wo con DATE OF EXAM: 11/20/2018 COMPARISON: None HISTORY: Altered mental status. CT DLP: 1098.4 mGycm Automated exposure control for dose reduction was used. FINDINGS: Ventricles have normal size. There is no mass effect nor midline shift. There is no sign of intracran ial hemorrhage. The calvarium is intact. There is mucosal thickening right maxillary sinus. Skull bas e is intact. IMPRESSION: NEGATIVE CT SCAN OF THE BRAIN. RIGHT MAXILLARY SINUSITIS.
[2018-11-21] MEDS ORDERED: MAGNESIUM HYDROXIDE 2,400 MG/10 ML CUP PO PRN (00:12)
[2018-11-21] MEDS ORDERED: ACETAMINOPHEN TAB 325 MG TAB PO PRN (00:12)
[2018-11-21] MEDS ORDERED: MAG HYDROX/AL HYDROX/SIMETH 30 ML CUP PO PRN (00:12)
[2018-11-21] MEDS: LORazepam 1 MG TAB PO PRN (00:45)
[2018-11-21 01:31] VITALS: BMI 21.5
[2018-11-21] MEDS: ATORVASTATIN 20 MG TAB PO SCH (09:14)
[2018-11-21] MEDS: HYDROCHLOROTHIAZIDE 25 MG TAB PO SCH (09:14)
[2018-11-21] MEDS: LOSARTAN 50 MG TAB PO SCH (09:17)
[2018-11-21] MEDS: busPIRone HCl 10 MG TAB PO SCH ×2 (13:02→21:50)
[2018-11-21] MEDS: SERTRALINE 50 MG TAB PO SCH (13:02)
--- NOTE | 2018-11-21 14:14 | P.HP ---
Psychiatric H&P - . H&P Date: 11/21/18 History & Physical: Allergies Allergy/AdvReac Type Severity Reaction Status Date / Time No Known Allergies Allergy Verified 11/20/18 20:07 Vital Signs Temp 97.5 F L 11/21/18 01:03 Pulse 80 11/21/18 01:03 Resp 20 11/21/18 01:03 BP 186/86 11/21/18 01:03 Pulse Ox 95 11/21/18 01:03 Intake & Output 11/20/18 11/21/18 11/21/18 18:59 06:59 18:59 Weight 72.575 kg 68.039 kg Laboratory Last Values WBC 6.2 k/uL (3.8-10.6) 11/20/18 18:41 RBC 4.33 m/uL (3.80-5.40) 11/20/18 18:41 Hgb 13.4 gm/dL (11.4-16.0) 11/20/18 18:41 Hct 39.1 % (34.0-46.0) 11/20/18 18:41 MCV 90.2 fL (80.0-100.0) 11/20/18 18:41 MCH 30.9 pg (25.0-35.0) 11/20/18 18:41 MCHC 34.3 g/dL (31.0-37.0) 11/20/18 18:41 RDW 12.6 % (11.5-15.5) 11/20/18 18:41 Plt Count 311 k/uL (150-450) 11/20/18 18:41 Neutrophils % 56 % 11/20/18 18:41 Lymphocytes % 33 % 11/20/18 18:41 Monocytes % 8 % 11/20/18 18:41 Eosinophils % 2 % 11/20/18 18:41 Basophils % 0 % 11/20/18 18:41 Neutrophils # 3.5 k/uL (1.3-7.7) 11/20/18 18:41 Lymphocytes # 2.0 k/uL (1.0-4.8) 11/20/18 18:41 Monocytes # 0.5 k/uL (0-1.0) 11/20/18 18:41 Eosinophils # 0.1 k/uL (0-0.7) 11/20/18 18:41 Basophils # 0.0 k/uL (0-0.2) 11/20/18 18:41 PT 9.7 sec (9.0-12.0) 11/20/18 18:41 INR 0.9 (<1.2) 11/20/18 18:41 APTT 22.5 sec (22.0-30.0) 11/20/18 18:41 Sodium 137 mmol/L (137-145) 11/20/18 18:41 Potassium 3.8 mmol/L (3.5-5.1) 11/20/18 18:41 Chloride 103 mmol/L (98-107) 11/20/18 18:41 Carbon Dioxide 25 mmol/L (22-30) 11/20/18 18:41 Anion Gap 9 mmol/L 11/20/18 18:41 BUN 9 mg/dL (7-17) 11/20/18 18:41 Creatinine 0.55 mg/dL (0.52-1.04) 11/20/18 18:41 Est GFR (CKD-EPI)AfAm >90 (>60 ml/min/1.73 sqM) 11/20/18 18:41 Est GFR (CKD-EPI)NonAf >90 (>60 ml/min/1.73 sqM) 11/20/18 18:41 Glucose 93 mg/dL (74-99) 11/20/18 18:41 Calcium 9.5 mg/dL (8.4-10.2) 11/20/18 18:41 Total Bilirubin 0.2 mg/dL (0.2-1.3) 11/20/18 18:41 AST 16 U/L (14-36) 11/20/18 18:41 ALT 18 U/L (9-52) 11/20/18 18:41 Alkaline Phosphatase 77 U/L (38-126) 11/20/18 18:41 Troponin I <0.012 ng/mL (0.000-0.034) 11/20/18 18:41 Total Protein 6.9 g/dL (6.3-8.2) 11/20/18 18:41 Albumin 4.0 g/dL (3.5-5.0) 11/20/18 18:41 Triglycerides 127 mg/dL (<150) 11/21/18 08:34 Cholesterol 195 mg/dL (<200) 11/21/18 08:34 LDL Cholesterol, Calc 109 mg/dL (0-99) H 11/21/18 08:34 HDL Cholesterol 61 mg/dL (40-60) H 11/21/18 08:34 TSH 1.560 mIU/L (0.465-4.680) 11/21/18 08:34 Urine Color Light Yellow 11/20/18 19:09 Urine Appearance Clear (Clear) 11/20/18 19:09 Urine pH 5.5 (5.0-8.0) 11/20/18 19:09 Ur Specific [place] 1.004 (1.001-1.035) 11/20/18 19:09 Urine Protein Negative (Negative) 11/20/18 19:09 Urine Glucose (UA) Negative (Negative) 11/20/18 19:09 Urine Ketones Negative (Negative) 11/20/18 19:09 Urine Blood Negative (Negative) 11/20/18 19:09 Urine Nitrite Negative (Negative) 11/20/18 19:09 Urine Bilirubin Negative (Negative) 11/20/18 19:09 Urine Urobilinogen <2.0 mg/dL (<2.0) 11/20/18 19:09 Ur Leukocyte Esterase Large (Negative) H 11/20/18 19:09 Urine RBC 1 /hpf (0-5) 11/20/18 19:09 Urine WBC 20 /hpf (0-5) H 11/20/18 19:09 Urine Bacteria Rare /hpf (None) H 11/20/18 19:09 Urine Opiates Screen Not Detected (NotDetected) 11/20/18 19:09 Ur Oxycodone Screen Not Detected (NotDetected) 11/20/18 19:09 Urine Methadone Screen Not Detected (NotDetected) 11/20/18 19:09 Ur Propoxyphene Screen Not Detected (NotDetected) 11/20/18 19:09 Ur Barbiturates Screen Not Detected (NotDetected) 11/20/18 19:09 U Tricyclic Antidepress Not Detected (NotDetected) 11/20/18 19:09 Ur Phencyclidine Scrn Not Detected (NotDetected) 11/20/18 19:09 Ur Amphetamines Screen Not Detected (NotDetected) 11/20/18 19:09 U Methamphetamines Scrn Not Detected (NotDetected) 11/20/18 19:09 U Benzodiazepines Scrn Not Detected (NotDetected) 11/20/18 19:09 Urine Cocaine Screen Not Detected (NotDetected) 11/20/18 19:09 U Marijuana (THC) Screen Not Detected (NotDetected) 11/20/18 19:09 11/21/18 13:48 IDENTIFYING DATA: Patient is a 68-year-old female who currently lives in a house has 1 son and 2 grandkids is single 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 Patient stated that she was with her [id number] and was having a "anxiety attack" and felt that everything in her life was getting much worse and felt really depressed and therefore was referred to the ER for evaluation. Patient did not have a specific plan however did feel suicidal on admission. Patient spoke about her stressors including not preparing well for her usp as she feels that she is not able to financially take care of herself. She states that she was doing the number calculations of where her Social Security will go and states that "it's not enough". Patient often catastrophizes during conversations and has all or none thinking. Patient also spoke of stressors at her workplace stating that she feels her job will let her go as she is getting older and cannot keep up. She claims that they want her to do a new job which she is not comfortable with. Patient states that she is "always worried" about multiple things endorsed fear of safety for her son. Patient admitted to being noncompliant with her medications all summer as she feels she did not need them. Patient was previously on Ativan and Zoloft which were helping her. When asked more about her suicidal ideations patient was guarded and try to minimize her thoughts. She states that her mood is depressed. She endorses hopelessness and helplessness and states "I ruined my life". She states that she gets approximately 6 hours of sleep a night is a decrease in her concentration has low appetite. At this time patient denies any suicidal or homicidal ideations intent or plan. At this time patient denies any auditory or visual hallucinations. Patient denies any flight of ideas racing thoughts and incr eased in goal directed behavior. Patient admits to using alcohol infrequently on special occasions and denies any other recreational drug use including cigarettes and marijuana. PAST PSYCHIATRIC HISTORY: Patient states that she was previously on Zoloft and Ativan and has been diagnosed with anxiety, depression and was following up with her primary care doc. She states that she does not see an outpatient psychiatrist however was receiving counseling approximately 6 months ago. She denies any previous suicide attempts. She denies any previous psychiatric admissions. PMH: Hypertension ALLERGIES: as per EMR CHEMICAL DEPENDENCY HISTORY: as per HPI FAMILY PSYCHIATRIC/SUBSTANCE USE HISTORY: denies SOCIAL HISTORY: She states that she was born and raised in [facility]. She states that she attended college after high school for 2 years. She states that she is working for an insurance company her whole life. Patient states that she lives in a house has 1 son 2 grandkids is single and is semiretired. MENTAL STATUS EXAM: General Appearance: Patient appears to be stated age is alert, and directable patient has fair hygiene and Grooming. Has poor eye contact. Behavior: Patient is seated without any agitated behavior. Patient appears anxious and restless. Speech: Patient's speech is fluent and nonpressured. Hyperverbal at times. Mood/Affect: Patient reports their mood is anxious and depressed, affect is congruent and constricted. Suicidality/Homicidality: Patient denies having any suicidal or homicidal ideation intent or plan. Perceptions: Patient denies any auditory or visual hallucinations. Though content/process: There is no evidence of any delusional thought content and thought process is linear and goal-directed. Patient is preoccupied with discharge and minimizing her symptoms. Memory and concentration: AOX3, grossly intact for the purposes of this session. Can spell "WORLD" backwards Judgment and insight: Poor STRENGTHS/WEAKNESSES: strength is that patient has good social support. Weakness is that patient has poor insight and noncompliance. INTELLECT: average IMPRESSIONS: Major depressive disorder, moderate-severe Generalized anxiety disorder PLAN: -Patient is admitted under voluntary status to [facility] for stabilization of psychiatric symptoms and safety. Patient signed adult voluntary form and medication consent and is placed in patient's chart. -Medications : Will start patient on Zoloft 50 mg daily for mood/anxiety and will be titrated up as tolerated. BuSpar 10 mg twice a day for anxiety, to be titrated up as needed. Melatonin daily at bedtime for sleep. -Patient was informed of the risks, benefits and side effects of the medication and patient verbally consented to taking the medications. Patient signed med consent form and was placed in chart. -Ativan when necessary for anxiety. -NRT -not needed as patient does not smoke -SW on board for discharge planning. Likely discharge early next week. 11/21/18 14:02 11/21/18 14:13
[2018-11-21 20:22] LABS: Hemoglobin A1C 5.4 % (4.0-6.0)
[2018-11-21] MEDS: MELATONIN 3 MG TABLET PO SCH (21:50)
[2018-11-21] MEDS: SULFAMETHOX-TMP 800-160MG 1 EACH TAB PO SCH (22:33)
--- NOTE | 2018-11-21 22:34 | P.MDCNMH ---
History of Present Illness H&P Date: 11/21/18 Chief Complaint: Urinary symptoms 68-year-old female with history of hypertension hyperlipidemia Patient reports history of anxiety and depression she was on Zoloft however she has stopped since beginning of the summer. She was feeling fine until yesterday when she was at work and started complaining of some headache then passed by her daughter's house who was concerned about her headache and decided to bring her to the hospital for evaluation. The patient lives alone she denies any history of suicidal or homicidal ideation however in the ER she apparently mention s omething regarding suicide ideation that she is currently denying that she was serious about it for which she was admitted to the hospital for psych evaluation. Patient currently reports that she wasn't serious about her intentions regarding committing any suicide and she denies any history of suic idal attempt or any ideations. She feels fine and she is hoping that she goes home soon. She also reported that she is having some dysuria and frequent urination over the past few days however denies any abdominal pain denies any fevers or chills denies any nausea vomiting denies any back pain denies any recent diagnosis of UTI denies any use of antibiotics recently denies any recent traveling or any instrumentation in her urinary tract. She denies any hematuria or any vaginal discharge. In the ED she was given a dose of Rocephin she had positive urinalysis. Review of Systems Pertinent positives as noted in HPI. All other systems were reviewed and are neg ative Past Medical History Past Medical History: Cancer, Hyperlipidemia, Hypertension, Osteoarthritis (OA) Additional Past Medical History / Comment(s): 01/2017 RT BREAST CANCER status post lumpectomy and radiation therapy. History of osteopenia. PAST [employer]ITECT HISTORY: She has no history of STDs. Previous colonization of the cervix in 1988. History of Any Multi-Drug Resistant Organisms: None Reported Past Surgical History: Breast Surgery, Tonsillectomy Additional Past Surgical History / Comment(s): D&C with C 1988, Benign cyst aspirations right breast, Benign excisional biopsy right breast 1989; rt breast lumpectomy 01/2017; COLONOSCOPY 2001. Past Anesthesia/Blood Transfusion Reactions: Previous Problems w/ Anesthesia Additional Past Anesthesia/Blood Transfusion Reaction / Comment(s): "Sensitivity to anesthesia" Past Psychological History: Anxiety, Depression Smoking Status: Never smoker Past Alcohol Use History: Occasional Past Drug Use History: None Reported - Past Family History Father Family Medical History: Cancer Additional Family Medical History / Comment(s): Colon cancer. Mother Family Medical History: Deep Vein Thrombosis (DVT) Additional Family Medical History / Comment(s): A maternal cousin had breast cancer. A maternal great aunt had ovarian cancer. Medications and Allergies Home Medications Medication Instructions Recorded Confirmed Type Olmesartan/Hydrochlorothiazide 1 tab PO DAILY 01/02/17 11/20/18 History [Benicar Hct 20-12.5 mg Tablet] Simvastatin [Zocor] 40 mg PO DAILY 01/02/17 11/20/18 History LORazepam [Ativan] 0.5 mg PO DAILY PRN 11/20/18 11/20/18 History Allergies Allergy/AdvReac Type Severity Reaction Status Date / Time No Known Allergies Allergy Verified 11/20/18 20:07 Physical Exam Vitals: Vital Signs Temp Pulse Pulse Resp BP BP Pulse Ox 11/21/18 01:03 97.5 F L 80 20 186/86 95 11/20/18 23:54 98.4 F 91 18 167/75 98 Intake and Output 11/21/18 11/21/18 11/21/18 06:59 14:59 22:59 Other: Weight 68.039 kg Constitutional: No acute distress, conversant, pleasant Eyes: Anicteric sclerae, moist conjunctiva, no lid-lag Pupils equal round reactive to light ENMT: NC/AT Oropharynx clear, no erythema, exudates Neck: Supple, FROM, no masses, or JVD No carotid bruits No thyromegaly Lungs: Clear to auscultation Clear to percussion Normal respiratory effort, no accessory muscle use Cardiovascular: Heart regular in rate and rhythm, No murmurs, gallops, or rubs No peripheral edema Abdominal: Soft, no CVA tenderness to palpation Nontender, no guarding, rebound or rigidity Abdomen moving with respiration Normoactive bowel sounds No hepatomegaly, No splenomegaly No palpable mass No abdominal wall hernia noted Skin: Normal temperature, tone, texture, turgor No induration No subcutaneous nodules No rash, lesions No ulcers Extremities: No digital cyanosis No clubbing Pedal pulses intact and symmetrical Radial pulses intact and symmetrical No calf tenderness Psychiatric: Alert and oriented to person, place and time Appropriate affect fair judgment Neuro Muscles Strength 5/5 in all 4 extremities Sensation to light touch grossly present throughout Cranial nerves II-XII grossly intact No focal sensory deficits Lymphatics: no palpable cervical or supraclavicular , or inguinal lymph nodes Cranial Nerve Examination - Cranial Nerves Cranial Nerve II- Optic: Intact Cranial Nerve III- Oculomotor: Intact Cranial Nerve IV- Trochlear: Intact Cranial Nerve V- Trigeminal: Intact Cranial Nerve - Abducens: Intact Cranial Nerve VII- Facial: Intact Cranial Nerve VIII- Auditory: Intact Cranial Nerve IX- Glossopharyngeal: Intact Cranial Nerve X- Vagus: Intact Cranial Nerve XI- Accessory: Intact Cranial Nerve XII- Hypoglossal: Intact Results CBC & Chem 7: 11/20/18 18:41 11/20/18 18:41 Labs: Abnormal Lab Results - Last 24 Hours (Table) 11/21/18 Range/Units 08:34 LDL Cholesterol, Calc 109 H (0-99) mg/dL HDL Cholesterol 61 H (40-60) mg/dL Microbiology - Last 24 Hours (Table) 11/20/18 19:09 Urine Culture - Preliminary Urine,Voided Assessment and Plan Assessment: 68 year old female with history of HTN, HLD, admitted for suicidal ideation , medicine consulted for medical management , patient complaining of dysuria and frequent urination. found to have simple cystitis. Plan: UTI, simple cystitis patient received a dose of rocephiine in the ED continue with 3 day course of bactrim DS BID suicidal ideation management per psych chronic conditions hypertension , resume home meds hyperlipidemia low risk for DVT, patient ambulatory Thank you for allowing us to participate in the care of this patient. We will follow peripherally. Do not hesitate to contact us with questions. Someone can be reached from the [facility] hospitalist group at all hours of the day at [phone].
[2018-11-22] MEDS: SULFAMETHOX-TMP 800-160MG 1 EACH TAB PO SCH ×2 (00:48→09:17)
[2018-11-22 06:34] VITALS: TEMP 97.7
[2018-11-22] MEDS: ATORVASTATIN 20 MG TAB PO SCH (09:15)
[2018-11-22] MEDS: LOSARTAN 50 MG TAB PO SCH (09:16)
[2018-11-22] MEDS: busPIRone HCl 10 MG TAB PO SCH ×2 (09:16→22:13)
[2018-11-22] MEDS: HYDROCHLOROTHIAZIDE 25 MG TAB PO SCH (09:16)
[2018-11-22] MEDS: SERTRALINE 50 MG TAB PO SCH (09:17)
--- NOTE | 2018-11-22 20:36 | P.PN ---
Progress Note - Text Progress Note Date: 11/22/18 IDENTIFICATION DATA: 68 year old woman admitted to [facility] with worsening symptoms of depression and anxiety and medication non compliance INTERVAL HISTORY: Patient was seen today. She reports feeling better and says she is anxious to get back home. She says being in the locked facility is making her more anxious than at home. She says being started back on her medications is helping her. She reports poor sleep and attributes it being in new environment. She reports good appetite. MENTAL STATUS EXAMINATION: 68-year old woman appears stated age in fair grooming and hygine. Is alert and oriented 4. Mood is reported as anxious and affect is constricted. Speech and thought processes are linear and goal directed. thought content is negative for suicidal or homicidal ideation. Denies auditory and visual hallucinations. Denies paranoid ideations. insight and judgment are improving Assessment Major depressive disorder, moderate-severe Generalized anxiety disorder Plan continue Continue Zoloft 50 mg daily for mood/anxiety which will be titrated up as tolerated. BuSpar 10 mg twice a day for anxiety, to be titrated up as needed. Melatonin daily at bedtime for sleep. She continue to meet the criteria for inpatient treatment of anxiety
[2018-11-22] MEDS: MELATONIN 3 MG TABLET PO SCH (22:13)
[2018-11-22] MEDS: CEPHALEXIN 500 MG CAP PO SCH (22:13)
[2018-11-23] MEDS: busPIRone HCl 10 MG TAB PO SCH ×2 (08:52→20:25)
[2018-11-23] MEDS: ATORVASTATIN 20 MG TAB PO SCH (08:52)
[2018-11-23] MEDS: LOSARTAN 50 MG TAB PO SCH (08:53)
[2018-11-23] MEDS: CEPHALEXIN 500 MG CAP PO SCH ×2 (08:53→20:25)
[2018-11-23] MEDS: HYDROCHLOROTHIAZIDE 25 MG TAB PO SCH (08:53)
[2018-11-23] MEDS: SERTRALINE 100 MG TAB PO SCH (08:54)
--- NOTE | 2018-11-23 12:35 | P.PN ---
Progress Note - Text Progress Note Date: 11/23/18 IDENTIFICATION DATA: 68 year old woman admitted to [facility] with worsening symptoms of depression and anxiety and medication non compliance INTERVAL HISTORY: Patient was seen today. She says her depression and anxiety are still there but manageable and not too overwhelming. She is worried that she might have to go to another institute from here. She was explained about the discharge process but patient is too concerned about her future and is paranoid that she might have to stay here for a month. She was assured that as long her symptoms are under control she will be able to go home with an out patient follow up appointment. She reports good sleep and appetite. Compliant with medications. No side effects reported. MENTAL STATUS EXAMINATION: 68-year old woman appears stated age in fair grooming and hygine. Is alert and oriented 4. Mood is reported as anxious and affect is constricted. Speech and thought processes are linear and goal directed. thought content is negative for suicidal or homicidal ideation. Denies auditory and visual hallucinations. Denies paranoid ideations. insight and judgment are improving Assessment Major depressive disorder, moderate-severe Generalized anxiety disorder Plan Zoloft increased to 100mg from 50 mg daily for mood/anxiety. BuSpar 10 mg twice a day for anxiety, to be titrated up as needed. Melatonin daily at bedtime for sleep. She continue to meet the criteria for inpatient treatment of anxiety
[2018-11-23] MEDS: LORazepam 1 MG TAB PO PRN (18:44)
[2018-11-23] MEDS: MELATONIN 3 MG TABLET PO SCH (20:25)
[2018-11-24] MEDS: SERTRALINE 100 MG TAB PO SCH (08:50)
[2018-11-24] MEDS: HYDROCHLOROTHIAZIDE 25 MG TAB PO SCH (08:50)
[2018-11-24] MEDS: CEPHALEXIN 500 MG CAP PO SCH (08:50)
[2018-11-24] MEDS: busPIRone HCl 10 MG TAB PO SCH (08:50)
[2018-11-24] MEDS: LOSARTAN 50 MG TAB PO SCH (08:50)
[2018-11-24] MEDS: ATORVASTATIN 20 MG TAB PO SCH (08:50)
[2018-11-24 08:53] VITALS: BP 134/61; PULSE 126; RESP 18
--- NOTE | 2018-11-24 10:32 | P.DS ---
Providers Date of admission: 11/20/18 23:34 Expected date of discharge: 11/24/18 Attending physician: Dong Melendez MD Consults: 11/21/18 00:12 Consult Physician Routine Consulting Provider: Gema Ribera Consult Reason/Comments: H&P for mental health admission Do you want consulting provider notified?: Yes Primary care physician: Gamaliel Castañeda - Discharge Diagnosis(es) (1) Major depressive disorder, recurrent severe without psychotic features Current Visit: Yes Status: Acute Priority: High (2) Generalized anxiety disorder Current Visit: Yes Status: Acute Priority: Medium Hospital Course: Admission HPI: Patient is a 68-year-old female who currently lives in a house has 1 son and 2 grandkids is single and 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 Patient presented to the hospital yesterday with complaints of severe anxiety, depression and suicidal ideations. Patient stated that she was with her [id number] and was having a "anxiety attack" and felt that everything in her life was getting much worse and felt really depressed and therefore was referred to the ER for evaluation. Patient did not have a specific plan however did feel suicidal on admission. Patient spoke about her stressors including not preparing well for her fdc as she feels that she is not able to financially take care of herself. She states that she was doing the number calculations of where her Social Security will go and states that "it's not enough". Patient often catastrophizes during conversations and has all or none thinking. Patient also spoke of stressors at her workplace stating that she feels her job will let her go as she is getting older and cannot keep up. She claims that they want her to do a new job which she is not comfortable with. Patient states that she is "always worried" about multiple things endorsed fear of safety for her son. Patient admitted to being noncompliant with her medications all summer as she feels she did not need them. Patient was previously on Ativan and Zoloft which were helping her. When asked more about her suicidal ideations patient was guarded and try to minimize her thoughts. She states that her mood is depressed. She endorses hopelessness and helplessness and states "I ruined my life". She states that she gets approximately 6 hours of sleep a night is a decrease in her concentration has low appetite. At this time patient denies any suicidal or homicidal ideations intent or plan. At this time patient denies any auditory or visual hallucinations. Patient denies any flight of ideas racing thoughts and increased in goal directed behavior. Patient admits to using alcohol infrequently on special occasions and denies any other recreational drug use including cigarettes and marijuana. Hospital course: Upon admission to the unit patient was initially anxious, depressed and was suicidal. Patient was however directable and agreeable to commence treatment. Patient got along well with other patients on the unit and followed unit protocol. Patient was compliant with the medications and denied any side effects throughout hospital course. Patient was started on Zoloft and increase to 100 mg daily for mood/anxiety. Patient was also started on BuSpar and titrated up to 15 mg twice a day for anxiety. Patient was also started on melatonin for sleep. Patient spoke of her stressors and engaged in therapy both group and individual. Patient was also seen by medical team for history and physical exam. Throughout the course of the hospitalization patient gradually improved with regards to mood, anxiety, sleep and became future oriented with improved insight and judgment. On the day of discharge patient denied any suicidal or homicidal ideations intent or plan denied any auditory or visual hallucinations. Patient endorsed wanting to live for her health and family. The patient denied any access to guns or weapons. Patient denied any paranoia and did not endorse any delusions. Patient does not have a significant history of substance abuse however was counseled on abstaining from all substances including alcohol and marijuana. Patient was also counseled on the medications and need for regular compliance and was encouraged to follow-up with their outpatient appointment for mental health and also for primary care. Prior to discharge a family meeting will be arranged by social problems specialist to answer any questions and ensure safety upon discharge. Mental status exam: General Appearance: Patient appears to be stated age is alert, pleasant, and cooperative. Patient is in no acute distress and has fair hygiene and grooming Behavior: Patient is calmly seated without any agitated behavior. Speech: Patient's speech is fluent and nonpressured. Mood/Affect: Patient reports their mood is "good", affect is congruent and euthymic. Patient appears to be less anxious. Suicidality/Homicidality: Patient denies having any suicidal or homicidal ideation intent or plan. Perceptions: Patient denies any auditory or visual hallucinations. Though content/process: There is no evidence of any delusional thought content and thought process is linear and goal-directed. Memory and concentration: AOX3, grossly intact for the purposes of this session. Can spell "WORLD" backwards correctly. Judgment and insight: fair, improved Impression: Major depressive disorder, severe without psychotic features. Generalized anxiety disorder Plan: -Continue with discharge today as patient has improved and stabilized psychiatrically and is not currently an imminent threat to herself and/or others. -Continue medications: BuSpar 15 mg twice a day for anxiety, Zoloft 100 mg daily for mood/anxiety. It was explained to the patient that the Zoloft may need to be titrated up as needed in the future. -Patient was counseled on the need for medication compliance and appropriate follow-up at mental health and also primary care for medical issues. Patient verbalized understanding and agreed. -Social work to arrange for and conduct family meeting to ensure safety upon discharge and answer any questions/concerns. Social work also to arrange for patients follow up appointments with psychiatric care along with follow up with primary care provider. -Patient counseled on abstaining from recreational drugs and marijuana and alcohol. Was informed/educated on the adverse effects on their physical and mental health. Patient verbally understood and agreed. -Patient was instructed to return to the hospital or seek immediate medical care if their psychiatric or medical systems do worsen or reoccur. Allergies Allergy/AdvReac Type Severity Reaction Status Date / Time No Known Allergies Allergy Verified 11/20/18 20:07 Laboratory Results WBC 6.2 k/uL (3.8-10.6) 11/20/18 18:41 RBC 4.33 m/uL (3.80-5.40) 11/20/18 18:41 Hgb 13.4 gm/dL (11.4-16.0) 11/20/18 18:41 Hct 39.1 % (34.0-46.0) 11/20/18 18:41 MCV 90.2 fL (80.0-100.0) 11/20/18 18:41 MCH 30.9 pg (25.0-35.0) 11/20/18 18:41 MCHC 34.3 g/dL (31.0-37.0) 11/20/18 18:41 RDW 12.6 % (11.5-15.5) 11/20/18 18:41 Plt Count 311 k/uL (150-450) 11/20/18 18:41 Neutrophils % 56 % 11/20/18 18:41 Lymphocytes % 33 % 11/20/18 18:41 Monocytes % 8 % 11/20/18 18:41 Eosinophils % 2 % 11/20/18 18:41 Basophils % 0 % 11/20/18 18:41 Neutrophils # 3.5 k/uL (1.3-7.7) 11/20/18 18:41 Lymphocytes # 2.0 k/uL (1.0-4.8) 11/20/18 18:41 Monocytes # 0.5 k/uL (0-1.0) 11/20/18 18:41 Eosinophils # 0.1 k/uL (0-0.7) 11/20/18 18:41 Basophils # 0.0 k/uL (0-0.2) 11/20/18 18:41 PT 9.7 sec (9.0-12.0) 11/20/18 18:41 INR 0.9 (<1.2) 11/20/18 18:41 APTT 22.5 sec (22.0-30.0) 11/20/18 18:41 Sodium 137 mmol/L (137-145) 11/20/18 18:41 Potassium 3.8 mmol/L (3.5-5.1) 11/20/18 18:41 Chloride 103 mmol/L (98-107) 11/20/18 18:41 Carbon Dioxide 25 mmol/L (22-30) 11/20/18 18:41 Anion Gap 9 mmol/L 11/20/18 18:41 BUN 9 mg/dL (7-17) 11/20/18 18:41 Creatinine 0.55 mg/dL (0.52-1.04) 11/20/18 18:41 Est GFR (CKD-EPI)AfAm >90 (>60 ml/min/1.73 sqM) 11/20/18 18:41 Est GFR (CKD-EPI)NonAf >90 (>60 ml/min/1.73 sqM) 11/20/18 18:41 Glucose 93 mg/dL (74-99) 11/20/18 18:[address] Glu mg/dL 108 11/21/18 08:34 Hemoglobin A1c 5.4 % (4.0-6.0) 11/21/18 08:34 Calcium 9.5 mg/dL (8.4-10.2) 11/20/18 18:41 Total Bilirubin 0.2 mg/dL (0.2-1.3) 11/20/18 18:41 AST 16 U/L (14-36) 11/20/18 18:41 ALT 18 U/L (9-52) 11/20/18 18:41 Alkaline Phosphatase 77 U/L (38-126) 11/20/18 18:41 Troponin I <0.012 ng/mL (0.000-0.034) 11/20/18 18:41 Total Protein 6.9 g/dL (6.3-8.2) 11/20/18 18:41 Albumin 4.0 g/dL (3.5-5.0) 11/20/18 18:41 Triglycerides 127 mg/dL (<150) 11/21/18 08:34 Cholesterol 195 mg/dL (<200) 11/21/18 08:34 LDL Cholesterol, Calc 109 mg/dL (0-99) H 11/21/18 08:34 HDL Cholesterol 61 mg/dL (40-60) H 11/21/18 08:34 TSH 1.560 mIU/L (0.465-4.680) 11/21/18 08:34 Urine Color Light Yellow 11/20/18 19:09 Urine Appearance Clear (Clear) 11/20/18 19:09 Urine pH 5.5 (5.0-8.0) 11/20/18 19:09 Ur Specific [place] 1.004 (1.001-1.035) 11/20/18 19:09 Urine Protein Negative (Negative) 11/20/18 19:09 Urine Glucose (UA) Negative (Negative) 11/20/18 19:09 Urine Ketones Negative (Negative) 11/20/18 19:09 Urine Blood Negative (Negative) 11/20/18 19:09 Urine Nitrite Negative (Negative) 11/20/18 19:09 Urine Bilirubin Negative (Negative) 11/20/18 19:09 Urine Urobilinogen <2.0 mg/dL (<2.0) 11/20/18 19:09 Ur Leukocyte Esterase Large (Negative) H 11/20/18 19:09 Urine RBC 1 /hpf (0-5) 11/20/18 19:09 Urine WBC 20 /hpf (0-5) H 11/20/18 19:09 Urine Bacteria Rare /hpf (None) H 11/20/18 19:09 Urine Opiates Screen Not Detected (NotDetected) 11/20/18 19:09 Ur Oxycodone Screen Not Detected (NotDetected) 11/20/18 19:09 Urine Methadone Screen Not Detected (NotDetected) 11/20/18 19:09 Ur Propoxyphene Screen Not Detected (NotDetected) 11/20/18 19:09 Ur Barbiturates Screen Not Detected (NotDetected) 11/20/18 19:09 U Tricyclic Antidepress Not Detected (NotDetected) 11/20/18 19:09 Ur Phencyclidine Scrn Not Detected (NotDetected) 11/20/18 19:09 Ur Amphetamines Screen Not Detected (NotDetected) 11/20/18 19:09 U Methamphetamines Scrn Not Detected (NotDetected) 11/20/18 19:09 U Benzodiazepines Scrn Not Detected (NotDetected) 11/20/18 19:09 Urine Cocaine Screen Not Detected (NotDetected) 11/20/18 19:09 U Marijuana (THC) Screen Not Detected (NotDetected) 11/20/18 19:09 Vital Signs Temp 97.7 F 11/22/18 06:33 Pulse 126 H 11/24/18 08:52 Resp 18 11/24/18 08:52 BP 134/61 11/24/18 08:52 Pulse Ox 95 11/21/18 01:03 Intake & Output 11/23/18 11/24/18 11/24/18 18:59 06:59 18:59 Weight 66.7 kg Patient Condition at Discharge: Serious Plan - Discharge Summary Discharge Rx Participant: No New Discharge Prescriptions: New busPIRone HCL [Buspar] 15 mg PO BID 28 Days tab Melatonin 3 mg PO HS 28 Days tablet Sertraline [Zoloft] 100 mg PO DAILY 28 Days tab Continue Simvastatin [Zocor] 40 mg PO DAILY Olmesartan/Hydrochlorothiazide [Benicar Hct 20-12.5 mg Tablet] 1 tab PO DAILY Discontinued LORazepam [Ativan] 0.5 mg PO DAILY PRN PRN Reason: Anxiety Discharge Medication List Olmesartan/Hydrochlorothiazide [Benicar Hct 20-12.5 mg Tablet] 1 tab PO DAILY 01/02/17 [History] Simvastatin [Zocor] 40 mg PO DAILY 01/02/17 [History] Melatonin 3 mg PO HS 28 Days tablet 11/24/18 [Rx] Sertraline [Zoloft] 100 mg PO DAILY 28 Days tab 11/24/18 [Rx] busPIRone HCL [Buspar] 15 mg PO BID 28 Days tab 11/24/18 [Rx] Follow up Appointment(s)/Referral(s): Gamaliel Castañeda DO [Primary Care Provider] - 1-2 days Activity/Diet/Wound Care/Special Instructions: Activity and diet as tolerated. No guns or weapons in the home. Refrain from Alcohol and street drugs not prescribed by your physician/s. Take all medications as prescribed, and attend your scheduled follow up appointments for psychiatric after care. If in need of medication refills, please to your primary care physician, or your out patient psychiatric provider. If in crisis please call , or go the nearest ER for an evaluation. Discharge Disposition: HOME SELF-CARE
== END 2018-11-24 13:53 | disposition home or self-care (01) | DRG 885 ==
LOC: EC 17:48 → 3MHU 23:34
PROVIDERS: ADMIT Psychiatry & Neurology Psychiatry; ATTEND Psychiatry & Neurology Psychiatry
DX: F33.2 Major depressive disorder, recurrent severe without psychotic features (principal); R45.851 Suicidal ideations; F41.1 Generalized anxiety disorder; E78.5 Hyperlipidemia, unspecified; I10 Essential (primary) hypertension; M85.80 Other specified disorders of bone density and structure, unspecified site; Z79.899 Other long term (current) drug therapy; Z80.0 Family history of malignant neoplasm of digestive organs; Z80.3 Family history of malignant neoplasm of breast; Z80.41 Family history of malignant neoplasm of ovary; Z85.3 Personal history of malignant neoplasm of breast; Z91.14 Patient's other noncompliance with medication regimen; Z92.3 Personal history of irradiation
CPT/HCPCS: 36415; 70450; 80053; 80061; 80306; 81001; 82075; 83036; 84443; 84484; 85025; 85610; 85730; 87086; 93005; 96361; 96374; 99285

== ENCOUNTER 2018-12-17 11:55 | Emergency (ER) | payer MEDICARE, BC ==
[2018-12-17 12:26] VITALS: RESP 18; TEMP 98.8
[2018-12-17 13:23] LABS: Amphetamine Screen,Urine Not Detected (NotDetected); Barbiturate Screen,Urine Not Detected (NotDetected); Benzodiazepines Screen,Urine Not Detected (NotDetected); Cocaine Screen,Urine Not Detected (NotDetected); Methadone Screen, Urine Not Detected (NotDetected); Opiate Screen,Urine Not Detected (NotDetected); Oxycodone Screen, Urine Not Detected (NotDetected); Phencyclidine Screen,Urine Not Detected (NotDetected); Tricyclic Antidepressant,Urine Not Detected (NotDetected); Urn Cannabinoid Scrn Not Detected (NotDetected)
--- NOTE | 2018-12-17 13:44 | ED ---
Psych HPI - General Chief Complaint: Psychiatric Symptoms Stated Complaint: mental health Time Seen by Provider: 12/17/18 12:46 Source: patient, RN notes reviewed, old records reviewed Mode of arrival: EMS - History of Present Illness Initial Comments: Gen. C8-year-old female presents emergency department today with her son for concerns for some suicidal statements, erratic behaviors and manic behavior. Patient has been admitted one month ago for psych evaluation at that time. Patient is on Zoloft and BuSpar for her movements. She reports she's been under stress as she's had a breakup from her long-term boyfriend. Patient states that she otherwise been well and doesn't want to be here. She is brought in by her son and police. [facility]. - Related Data Home Medications Medication Instructions Recorded Confirmed Olmesartan/Hydrochlorothiazide 1 tab PO DAILY 01/02/17 11/20/18 [Benicar Hct 20-12.5 mg Tablet] Simvastatin [Zocor] 40 mg PO DAILY 01/02/17 11/20/18 Previous Rx's Medication Instructions Recorded Melatonin 3 mg PO HS 28 Days tablet 11/24/18 Sertraline [Zoloft] 100 mg PO DAILY 28 Days tab 11/24/18 busPIRone HCL [Buspar] 15 mg PO BID 28 Days tab 11/24/18 Allergies Allergy/AdvReac Type Severity Reaction Status Date / Time No Known Allergies Allergy Verified 11/20/18 20:07 Review of Systems ROS Statement: Those systems with pertinent positive or pertinent negative responses have been documented in the HPI. ROS Other: All systems not noted in ROS Statement are negative. Past Medical History Past Medical History: Cancer, Hyperlipidemia, Hypertension, Osteoarthritis (OA) Additional Past Medical History / Comment(s): 01/2017 RT BREAST CANCER status post lumpectomy and radiation therapy. History of osteopenia. 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 Previous colonization of the cervix in 1988. History of Any Multi-Drug Resistant Organisms: None Reported Past Surgical History: Breast Surgery, Tonsillectomy Additional Past Surgical History / Comment(s): D&C with [facility] 1988, Benign cyst aspirations right breast, Benign excisional biopsy right breast 1989; rt breast lumpectomy 01/2017; COLONOSCOPY 2001. Past Anesthesia/Blood Transfusion Reactions: Previous Problems w/ Anesthesia Additional Past Anesthesia/Blood Transfusion Reaction / Comment(s): "Sensitivity to anesthesia" Past Psychological History: Anxiety, Depression Smoking Status: Never smoker Past Alcohol Use History: Daily Past Drug Use History: None Reported - Past Family History Father Family Medical History: Cancer Additional Family Medical History / Comment(s): Colon cancer. Mother Family Medical History: Deep Vein Thrombosis (DVT) Additional Family Medical History / Comment(s): A maternal cousin had breast c ancer. A maternal great aunt had ovarian cancer. General Exam - General Exam Comments Initial Comments: Alert and oriented 68-year-old female. Resting comfortably in bed. No distress. General: Well appearing, well nourished, in no distress. Oriented x 3, normal mood and affect . Ambulating without difficulty. Skin: Good turgor, no rash, unusual bruising or prominent lesions Hair: Normal texture and distribution. HEENT: Head: Normocephalic, atraumatic, no visible or palpable masses, depressions, or scaring. Eyes: Visual acuity intact, conjunctiva clear, sclera non-icteric, EOM intact, PERRL. Ears: EACs clear, TMs translucent & cone of light visualized. hearing intact. Nose: No external lesions, mucosa non-inflamed, septum and turbinates normal Mouth: Mucous membranes moist, no mucosal lesions. Teeth/Gums: No obvious caries or periodontal disease. No gingival inflammation or significant resorption. Pharynx: Mucosa non-inflamed, no tonsillar hypertrophy or exudate Neck: Supple, without lesions, bruits, or adenopathy, thyroid non-enlarged and non-tender Heart: No cardiomegaly or thrills; regular rate and rhythm, no murmur or gallop Lungs: Clear to auscultation and percussion Abdomen: Bowel sounds normal, no tenderness, organomegaly, masses, or hernia Back: Spine normal without deformity or tenderness, no CVA tenderness Rectal: Normal sphincter tone, no hemorrhoids or masses palpable Extremities: No amputations or deformities, cyanosis, edema or varicosities, peripheral pulses intact Musculoskeletal: Normal gait and station. No misalignment, asymmetry, crepitation, defects, tenderness, masses, effusions, decreased range of motion, instability, atrophy or abnormal strength or tone in the head, neck, spine, ribs, pelvis or extremities. Neurologic: CN 2-12 normal. Sensation to pain, touch, and proprioception normal. DTRs normal in upper and lower extremities. No pathologic reflexes. Psychiatric: Oriented X3, intact recent and remote memory, judgment and insight, normal mood and affect. Limitations: no limitations Eye exam: Present: normal appearance, PERRL, EOMI. Absent: scleral icterus, conjunctival injection, periorbital swelling ENT exam: Present: normal exam, mucous membranes moist Neck exam: Present: normal inspection. Absent: tenderness, meningismus, lymphadenopathy Respiratory exam: Present: normal lung sounds bilaterally. Absent: respiratory distress, wheezes, rales, rhonchi, stridor Cardiovascular Exam: Present: regular rate, normal rhythm, normal heart sounds. Absent: systolic murmur, diastolic murmur, rubs, gallop, clicks GI/Abdominal exam: Present: soft, normal bowel sounds. Absent: distended, tenderness, guarding, rebound, rigid Extremities exam: Present: normal inspection, full ROM, normal capillary refill. Absent: tenderness, pedal edema, joint swelling, calf tenderness Back exam: Present: normal inspection Neurological exam: Present: alert, oriented X3, CN II-XII intact Psychiatric exam: Present: normal affect, normal mood, manic, other (Sinus suicidal ideations to me, doesn't show to have some erratic behavior, hyperverbal. Pressured speech.) Skin exam: Present: warm, dry, intact, normal color. Absent: rash Course Vital Signs 12/17/18 12/17/18 12:21 15:49 Temperature 98.8 F Pulse Rate 97 67 Respiratory 18 18 Rate Blood Pressure 123/77 116/74 O2 Sat by Pulse 97 98 Oximetry Medical Decision Making - Medical Decision Making 68-year-old female concern for erratic behavior and manic episodes. She is brought in by her son. Patient is medically clear at this time for EPS evaluation. To me she denies any suicidal thoughts and states she doesn't need to be here. EPS valuated Patient Patient can follow-up with her outpatient counseling services and does not require admission at this time. Patient's son and Patient are agreeable with this plan. Discussed that the Any worsening signs or symptoms that cannot return for reevaluation. All questions were answered. - Lab Data Lab Results 12/17/18 Range/Units 12:55 Urine Opiates Screen Not Detected (NotDetected) Ur Oxycodone Screen Not Detected (NotDetected) Urine Methadone Screen Not Detected (NotDetected) Ur Propoxyphene Screen Not Detected (NotDetected) Ur Barbiturates Screen Not Detected (NotDetected) U Tricyclic Antidepress Not Detected (NotDetected) Ur Phencyclidine Scrn Not Detected (NotDetected) Ur Amphetamines Screen Not Detected (NotDetected) U Methamphetamines Scrn Not Detected (NotDetected) U Benzodiazepines Scrn Not Detected (NotDetected) Urine Cocaine Screen Not Detected (NotDetected) U Marijuana (THC) Screen Not Detected (NotDetected) Disposition Clinical Impression: Mood disorder Disposition: HOME SELF-CARE Condition: Good Instructions (If sedation given, give patient instructions): Mood Disorders (ED) Additional Instructions: Patient advised to follow up with outpatient counseling services. Return to the emergency department if any alarming signs or symptoms occur. Is patient prescribed a controlled substance at d/c from ED?: No Referrals: Gamaliel Catsañeda DO [Primary Care Provider] - 1-2 days Time of Disposition: 15:36
[2018-12-17 15:50] VITALS: BP 116/74; PULSE 67
== END 2018-12-17 15:49 | disposition home or self-care (01) ==
LOC: EC 11:55
DX: F30.9 Manic episode, unspecified (principal); R45.851 Suicidal ideations; E78.5 Hyperlipidemia, unspecified; I10 Essential (primary) hypertension; Z79.899 Other long term (current) drug therapy; Z85.3 Personal history of malignant neoplasm of breast; Z92.3 Personal history of irradiation; Z98.890 Other specified postprocedural states
CPT/HCPCS: 80306; 82075; 99285

== ENCOUNTER 2019-01-17 12:36 | Observation (INO) | payer BC ==
--- NOTE | 2019-01-17 13:47 | ED ---
Psych HPI - General Source: patient, family, RN notes reviewed Mode of arrival: wheelchair - History of Present Illness MD Complaint: feels depressed, other <Chito Alston - Last Filed: 01/18/19 16:28> <Corinne Wood - Last Filed: 01/20/19 08:21> <Estefany Ba - Last Filed: 01/20/19 23:33> - General Chief Complaint: Psychiatric Symptoms Stated Complaint: mental health Time Seen by Provider: 01/17/19 13:08 - History of Present Illness Initial Comments: This is a 68-year-old female history depression many years ago also history of right-sided breast cancer status post lumpectomy and radiation therapy who does states she had a negative exam done approximately 2 months ago who is here today brought by her son with concerns of paranoia and altered activity. She appears be depressed she's had some suicidal thoughts demonstrate poor hygiene she does pick her skin and pull her hair apparently she thinks her son is edema and she thinks the food she is eating his stool. Not take does deny any alcohol or drugs. He also denies any information provided by her son. drinking very well. She had been on Zoloft his been not taking it for any particular reason. (Chito Alston) - Related Data Home Medications Medication Instructions Recorded Confirmed Olmesartan/Hydrochlorothiazide 1 tab PO DAILY 01/02/17 01/20/19 [Benicar Hct 20-12.5 mg Tablet] Simvastatin [Zocor] 40 mg PO DAILY 01/02/17 01/20/19 LORazepam [Ativan] 1 mg PO TID PRN 01/20/19 01/20/19 Previous Rx's Medication Instructions Recorded Sertraline [Zoloft] 100 mg PO DAILY 28 Days tab 11/24/18 Allergies Allergy/AdvReac Type Severity Reaction Status Date / Time No Known Allergies Allergy Verified 01/20/19 14:08 Review of Systems ROS Other: All systems not noted in ROS Statement are negative. <Chito Alston - Last Filed: 01/18/19 16:28> ROS Other: All systems not noted in ROS Statement are negative. <Corinne Wood - Last Filed: 01/20/19 08:21> ROS Other: All systems not noted in ROS Statement are negative. <Estefany Ba - Last Filed: 01/20/19 23:33> ROS Statement: Those systems with pertinent positive or pertinent negative responses have been documented in the HPI. Past Medical History Past Medical History: Cancer, Hyperlipidemia, Hypertension, Osteoarthritis (OA) Additional Past Medical History / Comment(s): 01/2017 RT BREAST CANCER status p ost lumpectomy and radiation therapy. History of osteopenia. 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 Previous colonization of the cervix in 1988. History of Any Multi-Drug Resistant Organisms: None Reported Past Surgical History: Breast Surgery, Tonsillectomy Additional Past Surgical History / Comment(s): D&C with [facility] 1988, Benign cyst aspirations right breast, Benign excisional biopsy right breast 1989; rt breast lumpectomy 01/2017; COLONOSCOPY 2001. Past Anesthesia/Blood Transfusion Reactions: Previous Problems w/ Anesthesia Additional Past Anesthesia/Blood Transfusion Reaction / Comment(s): "Sensitivity to anesthesia" Past Psychological History: Anxiety, Depression Smoking Status: Never smoker Past Alcohol Use History: Daily Past Drug Use History: None Reported - Past Family History Father Family Medical History: Cancer Additional Family Medical History / Comment(s): Colon cancer. Mother Family Medical History: Deep Vein Thrombosis (DVT) Additional Family Medical History / Comment(s): A maternal cousin had breast cancer. A maternal great aunt had ovarian cancer. <GamalielChito - Last Filed: 01/18/19 16:28> General Exam Limitations: no limitations General appearance: alert, anxious Head exam: Present: atraumatic, normocephalic, normal inspection Eye exam: Present: normal appearance, PERRL, EOMI. Absent: scleral icterus, conjunctival injection, periorbital swelling ENT exam: Present: mucous membranes dry Neck exam: Present: normal inspection. Absent: tenderness, meningismus, lymphadenopathy Respiratory exam: Present: normal lung sounds bilaterally. Absent: respiratory distress, wheezes, rales, rhonchi, stridor Cardiovascular Exam: Present: normal rhythm, tachycardia, normal heart sounds. Absent: systolic murmur, diastolic murmur, rubs, gallop, clicks GI/Abdominal exam: Present: soft, normal bowel sounds. Absent: distended, te nderness, guarding, rebound, rigid Rectal exam: Present: deferred Extremities exam: Present: full ROM, normal capillary refill. Absent: tenderness, pedal edema, joint swelling, calf tenderness Back exam: Present: normal inspection Neurological exam: Present: alert, oriented X3, CN II-XII intact Psychiatric exam: Present: depressed, anxious, manic, other (Some paranoid fea tures demonstrated) Skin exam: Present: warm, dry, normal color, other (We'll 2 erythematous areas from skin picking noted no evidence of secondary infection at this time.). Absent: rash <Chito Alston - Last Filed: 01/18/19 16:28> - General Exam Comments Initial Comments: This is a well-developed sec appearing female was awake alert oriented 3 (Chito Alston) Course <Chito Alston - Last Filed: 01/18/19 16:28> Vital Signs 01/17/19 01/17/19 01/17/19 12:40 19:56 23:24 Temperature 98.1 F 98.0 F Pulse Rate 107 H 81 84 Respiratory 20 18 18 Rate Blood Pressure 106/68 120/78 142/72 O2 Sat by Pulse 98 100 100 Oximetry 01/18/19 01/18/19 01/19/19 10:29 16:55 06:04 Temperature 98.0 F 98 F Pulse Rate 94 78 75 Respiratory 18 18 18 Rate Blood Pressure 126/68 141/78 135/70 O2 Sat by Pulse 98 98 98 Oximetry 01/19/19 01/19/19 01/20/19 11:53 15:09 01:00 Temperature 98 F 99 F Pulse Rate 77 88 81 Respiratory 18 18 16 Rate Blood Pressure 132/77 169/73 151/73 O2 Sat by Pulse 98 99 98 Oximetry 01/20/19 09:00 Temperature 97.6 F Pulse Rate 80 Respiratory 20 Rate Blood Pressure 140/70 O2 Sat by Pulse 98 Oximetry - Reevaluation(s) Reevaluation #1: 01/17/19 18:27 Patient is in process of having a psychiatric evaluation the final evaluation is pending the case is endorsed to Dr. Wood at our shift change (Chito Alston) Reevaluation #2: 01/18/19 16:28 The patient rested comfortably throughout the day and did not require any intervention. She is awaiting a geriatric psychiatric facility. The case is endorsed to Dr. Lamas. (Chito Alston) Medical Decision Making - Lab Data Result diagrams: 01/17/19 13:30 01/17/19 13:30 - Radiology Data Radiology results: report reviewed (I did review the imaging and report no acute findings.), image reviewed <Chito Alston - Last Filed: 01/18/19 16:28> - Lab Data Result diagrams: 01/20/19 04:10 01/20/19 04:10 <Corinne Wood - Last Filed: 01/20/19 08:21> - Lab Data Result diagrams: 01/20/19 04:10 01/20/19 04:10 <Estefany Ba - Last Filed: 01/20/19 23:33> - Medical Decision Making Patient was initially seen and evaluated 2-1/2 days prior, home medications had been ordered patient is being treated for urinary tract infection. Since boarding in the emergency department the patient has been refusing by mouth intake, refusing to take antibiotics for urinary tract infection refusing her home medications. At this time patient cannot be medically cleared for transport to a psychiatric facility as she has an untreated urinary tract infection. Repeat labs will be obtained and we will plan to admit the patient medically. Patient's repeat labs reveal a down trending white blood cell count, normalized potassium normal electrolytes no signs of dehydration I suspect the patient is in fact eating and drinking. Patient will be treated with a dose of IV Ceftin for her urinary tract infection. Patient care was discussed with the admitting physician however he does not feel is appropriate medical admission he feels that being an inpatient will likely worsen patient agitation and delirium. Recommends single dose of IV antibiotics 3 days of oral antibiotics to clear the cystitis. (Corinne Wood) I obtain the patient from Dr. Wood. The patient was refused from an inpatient standpoint as they do not believe her abnormal UA contributes to her agitation and delirium. Her white blood cell count is improving. She is currently on antibiotics for cystitis. At this time she is medically cleared for psychiatric placement. A repeat urine had been ordered by a different provider. It shows development of nitrites and WBC clumps. Psych evaluated the patient and continued to refuse placing the patient. I was told the patient would not be able to be accepted at any [facility] facility with an acute UTI. Because of this I called Dr. Lundberg who accepted admission. He request I place Dr. Cano and psych on consult. (Estefany Ba) - Lab Data Lab Results 01/17/19 01/17/19 01/17/19 Range/Units 13:30 13:30 13:30 WBC 7.8 (3.8-10.6) k/uL RBC 4.98 (3.80-5.40) m/uL Hgb 15.2 (11.4-16.0) gm/dL Hct 44.0 (34.0-46.0) % MCV 88.3 (80.0-100.0) fL MCH 30.4 (25.0-35.0) pg MCHC 34.4 (31.0-37.0) g/dL RDW 12.7 (11.5-15.5) % Plt Count 354 (150-450) k/uL Neutrophils % 70 % Lymphocytes % 24 % Monocytes % 4 % Eosinophils % 1 % Basophils % 1 % Neutrophils # 5.5 (1.3-7.7) k/uL Lymphocytes # 1.9 (1.0-4.8) k/uL Monocytes # 0.3 (0-1.0) k/uL Eosinophils # 0.0 (0-0.7) k/uL Basophils # 0.0 (0-0.2) k/uL Sodium 141 (137-145) mmol/L Potassium 3.2 L (3.5-5.1) mmol/L Chloride 104 (98-107) mmol/L Carbon Dioxide 29 (22-30) mmol/L Anion Gap 8 mmol/L BUN 12 (7-17) mg/dL Creatinine 0.66 (0.52-1.04) mg/dL Est GFR (CKD-EPI)AfAm >90 (>60 ml/min/1.73 sqM) Est GFR (CKD-EPI)NonAf >90 (>60 ml/min/1.73 sqM) Glucose 135 H (74-99) mg/dL Calcium 10.6 H (8.4-10.2) mg/dL Magnesium 1.8 (1.6-2.3) mg/dL Total Bilirubin 0.7 (0.2-1.3) mg/dL AST 40 H (14-36) U/L ALT 24 (9-52) U/L Alkaline Phosphatase 74 (38-126) U/L Ammonia <9 (<30) umol/L Creatine Kinase 96 (30-135) U/L Total Protein 7.6 (6.3-8.2) g/dL Albumin 4.5 (3.5-5.0) g/dL TSH 2.340 (0.465-4.680) mIU/L Urine Color Urine Appearance (Clear) Urine pH (5.0-8.0) Ur Specific [place] (1.001-1.035) Urine Protein (Negative) Urine Glucose (UA) (Negative) Urine Ketones (Negative) Urine Blood (Negative) Urine Nitrite (Negative) Urine Bilirubin (Negative) Urine Urobilinogen (<2.0) mg/dL Ur Leukocyte Esterase (Negative) Urine RBC (0-5) /hpf Urine WBC (0-5) /hpf Urine WBC Clumps (None) /hpf Ur Squamous Epith Cells (0-4) /hpf Urine Bacteria (None) /hpf Hyaline Casts (0-2) /lpf Urine Mucus (None) /hpf Urine Opiates Screen (NotDetected) Ur Oxycodone Screen (NotDetected) Urine Methadone Screen (NotDetected) Ur Propoxyphene Screen (NotDetected) Ur Barbiturates Screen (NotDetected) U Tricyclic Antidepress (NotDetected) Ur Phencyclidine Scrn (NotDetected) Ur Amphetamines Screen (NotDetected) U Methamphetamines Scrn (NotDetected) U Benzodiazepines Scrn (NotDetected) Urine Cocaine Screen (NotDetected) U Marijuana (THC) Screen (NotDetected) 01/17/19 01/20/19 01/20/19 Range/Units 13:30 04:10 04:10 WBC 5.3 (3.8-10.6) k/uL RBC 4.66 (3.80-5.40) m/uL Hgb 14.1 (11.4-16.0) gm/dL Hct 41.2 (34.0-46.0) % MCV 88.5 (80.0-100.0) fL MCH 30.3 (25.0-35.0) pg MCHC 34.2 (31.0-37.0) g/dL RDW 12.7 (11.5-15.5) % Plt Count 267 (150-450) k/uL Neutrophils % 58 % Lymphocytes % 30 % Monocytes % 8 % Eosinophils % 2 % Basophils % 1 % Neutrophils # 3.1 (1.3-7.7) k/uL Lymphocytes # 1.6 (1.0-4.8) k/uL Monocytes # 0.4 (0-1.0) k/uL Eosinophils # 0.1 (0-0.7) k/uL Basophils # 0.0 (0-0.2) k/uL Sodium 139 (137-145) mmol/L Potassium 3.5 (3.5-5.1) mmol/L Chloride 103 (98-107) mmol/L Carbon Dioxide 28 (22-30) mmol/L Anion Gap 8 mmol/L BUN 10 (7-17) mg/dL Creatinine 0.58 (0.52-1.04) mg/dL Est GFR (CKD-EPI)AfAm >90 (>60 ml/min/1.73 sqM) Est GFR (CKD-EPI)NonAf >90 (>60 ml/min/1.73 sqM) Glucose 142 H (74-99) mg/dL Calcium 9.9 (8.4-10.2) mg/dL Magnesium 1.8 (1.6-2.3) mg/dL Total Bilirubin 0.7 (0.2-1.3) mg/dL AST 29 (14-36) U/L ALT 21 (9-52) U/L Alkaline Phosphatase 68 (38-126) U/L Ammonia (<30) umol/L Creatine Kinase (30-135) U/L Total Protein 6.8 (6.3-8.2) g/dL Albumin 4.0 (3.5-5.0) g/dL TSH (0.465-4.680) mIU/L Urine Color Yellow Urine Appearance Turbid H (Clear) Urine pH 6.0 (5.0-8.0) Ur Specific [place] 1.018 (1.001-1.035) Urine Protein 1+ H (Negative) Urine Glucose (UA) Negative (Negative) Urine Ketones 1+ H (Negative) Urine Blood Trace H (Negative) Urine Nitrite Negative (Negative) Urine Bilirubin Negative (Negative) Urine Urobilinogen 2.0 (<2.0) mg/dL Ur Leukocyte Esterase Large H (Negative) Urine RBC 16 H (0-5) /hpf Urine WBC 86 H (0-5) /hpf Urine WBC Clumps (None) /hpf Ur Squamous Epith Cells 3 (0-4) /hpf Urine Bacteria Many H (None) /hpf Hyaline Casts 12 H (0-2) /lpf Urine Mucus Many H (None) /hpf Urine Opiates Screen Not Detected (NotDetected) Ur Oxycodone Screen Not Detected (NotDetected) Urine Methadone Screen Not Detected (NotDetected) Ur Propoxyphene Screen Not Detected (NotDetected) Ur Barbiturates Screen Not Detected (NotDetected) U Tricyclic Antidepress Not Detected (NotDetected) Ur Phencyclidine Scrn Not Detected (NotDetected) Ur Amphetamines Screen Not Detected (NotDetected) U Methamphetamines Scrn Not Detected (NotDetected) U Benzodiazepines Scrn Not Detected (NotDetected) Urine Cocaine Screen Not Detected (NotDetected) U Marijuana (THC) Screen Not Detected (NotDetected) 01/20/19 Range/Units 09:38 WBC (3.8-10.6) k/uL RBC (3.80-5.40) m/uL Hgb (11.4-16.0) gm/dL Hct (34.0-46.0) % MCV (80.0-100.0) fL MCH (25.0-35.0) pg MCHC (31.0-37.0) g/dL RDW (11.5-15.5) % Plt Count (150-450) k/uL Neutrophils % % Lymphocytes % % Monocytes % % Eosinophils % % Basophils % % Neutrophils # (1.3-7.7) k/uL Lymphocytes # (1.0-4.8) k/uL Monocytes # (0-1.0) k/uL Eosinophils # (0-0.7) k/uL Basophils # (0-0.2) k/uL Sodium (137-145) mmol/L Potassium (3.5-5.1) mmol/L Chloride (98-107) mmol/L Carbon Dioxide (22-30) mmol/L Anion Gap mmol/L BUN (7-17) mg/dL Creatinine (0.52-1.04) mg/dL Est GFR (CKD-EPI)AfAm (>60 ml/min/1.73 sqM) Est GFR (CKD-EPI)NonAf (>60 ml/min/1.73 sqM) Glucose (74-99) mg/dL Calcium (8.4-10.2) mg/dL Magnesium (1.6-2.3) mg/dL Total Bilirubin (0.2-1.3) mg/dL AST (14-36) U/L ALT (9-52) U/L Alkaline Phosphatase (38-126) U/L Ammonia (<30) umol/L Creatine Kinase (30-135) U/L Total Protein (6.3-8.2) g/dL Albumin (3.5-5.0) g/dL TSH (0.465-4.680) mIU/L Urine Color Red Urine Appearance Turbid H (Clear) Urine pH 5.5 (5.0-8.0) Ur Specific [place] 1.018 (1.001-1.035) Urine Protein 1+ H (Negative) Urine Glucose (UA) Negative (Negative) Urine Ketones Trace H (Negative) Urine Blood Trace H (Negative) Urine Nitrite Positive H (Negative) Urine Bilirubin Negative (Negative) Urine Urobilinogen <2.0 (<2.0) mg/dL Ur Leukocyte Esterase Large H (Negative) Urine RBC 25 H (0-5) /hpf Urine WBC 166 H (0-5) /hpf Urine WBC Clumps Few H (None) /hpf Ur Squamous Epith Cells 2 (0-4) /hpf Urine Bacteria Many H (None) /hpf Hyaline Casts (0-2) /lpf Urine Mucus Many H (None) /hpf Urine Opiates Screen (NotDetected) Ur Oxycodone Screen (NotDetected) Urine Methadone Screen (NotDetected) Ur Propoxyphene Screen (NotDetected) Ur Barbiturates Screen (NotDetected) U Tricyclic Antidepress (NotDetected) Ur Phencyclidine Scrn (NotDetected) Ur Amphetamines Screen (NotDetected) U Methamphetamines Scrn (NotDetected) U Benzodiazepines Scrn (NotDetected) Urine Cocaine Screen (NotDetected) U Marijuana (THC) Screen (NotDetected) Disposition <Chito Alston - Last Filed: 01/18/19 16:28> <Corinne Wood - Last Filed: 01/20/19 08:21> Is patient prescribed a controlled substance at d/c from ED?: No Decision to Admit Reason: Admit from EC Decision Date: 01/20/19 Decision Time: 12:39 <Estefany Ba - Last Filed: 01/20/19 23:33> Clinical Impression: Anxiety, Acute UTI Disposition: ADMITTED IP TO THIS HOSP Condition: Stable
[2019-01-17 13:56] LABS: Basophils % (A) 1 %; Eosinophils % (A) 1 %; HGB 15.2 gm/dL (11.4-16.0); Lymphocytes # (A) 1.9 k/uL (1.0-4.8); Lymphocytes % (A) 24 %; MCH 30.4 pg (25.0-35.0); MCHC 34.4 g/dL (31.0-37.0); MCV 88.3 fL (80.0-100.0); Mean Platelet Volume 6.5; Monocytes # (A) 0.3 k/uL (0-1.0); Monocytes % (A) 4 %; Neutrophils # (A) 5.5 k/uL (1.3-7.7); Neutrophils % (A) 70 %; Platelet Count 354 k/uL (150-450); RBC 4.98 m/uL (3.80-5.40); RDW 12.7 % (11.5-15.5); WBC 7.8 k/uL (3.8-10.6)
[2019-01-17 14:07] LABS: ALT 24 U/L (9-52); AST 40 U/L (14-36); African American GFR (CKD) >90 (>60 ml/min/1.73 sqM); Albumin 4.5 g/dL (3.5-5.0); Alkaline Phosphatase 74 U/L (38-126); Anion Gap 8 mmol/L; Appearance,Urine Turbid (Clear); Bacteria,Urine Many /hpf; Bilirubin,Urine Negative (Negative); Blood Urea Nitrogen 12 mg/dL (7-17); Blood,Urine Trace (Negative); Calcium 10.6 mg/dL (8.4-10.2); Carbon Dioxide 29 mmol/L (22-30); Chloride 104 mmol/L (98-107); Color,Urine Yellow; Creatine Kinase 96 U/L (30-135); Glucose 135 mg/dL (74-99); Glucose,Urine (UA) Negative (Negative); Hyaline Casts,Urine 12 /lpf (0-2); Ketones,Urine 1+ (Negative); Leukocyte Esterase,Urine Large (Negative); Magnesium 1.8 mg/dL (1.6-2.3); Mucus,Urine Many /hpf; Nitrite,Urine Negative (Negative); Non-African American GFR(CKD) >90 (>60 ml/min/1.73 sqM); Protein,Urine 1+ (Negative); RBC,Urine 16 /hpf (0-5); Sodium 141 mmol/L (137-145); Specific Gravity,Urine 1.018 (1.001-1.035); Squamous Epithelial Cell,Urine 3 /hpf (0-4); Total Bilirubin 0.7 mg/dL (0.2-1.3); Total Protein 7.6 g/dL (6.3-8.2); WBC,Urine 86 /hpf (0-5)
[2019-01-17 14:12] LABS: Amphetamine Screen,Urine Not Detected (NotDetected); Barbiturate Screen,Urine Not Detected (NotDetected); Benzodiazepines Screen,Urine Not Detected (NotDetected); Cocaine Screen,Urine Not Detected (NotDetected); Methadone Screen, Urine Not Detected (NotDetected); Opiate Screen,Urine Not Detected (NotDetected); Oxycodone Screen, Urine Not Detected (NotDetected); Phencyclidine Screen,Urine Not Detected (NotDetected); Tricyclic Antidepressant,Urine Not Detected (NotDetected); Urn Cannabinoid Scrn Not Detected (NotDetected)
[2019-01-17 14:20] LABS: Potassium 3.2 mmol/L (3.5-5.1)
--- NOTE | 2019-01-17 14:50 | XR ---
EXAMINATION TYPE: XR chest 2V DATE OF EXAM: 01/17/2019 COMPARISON: NONE TECHNIQUE: PA and lateral views submitted. HISTORY: Mental status change FINDINGS: The lungs are clear and there is no pneumothorax, pleural effusion, or focal pneumonia. Surgical cl ips overlying the right breast and axilla. Diffuse osteopenia. Biapical pleural thickening. No overt failure. Heart size normal. Hypertrophic and degenerative change of the spine. IMPRESSION: 1. No acute process.
[2019-01-17] MEDS: POTASSIUM CHLORIDE ER 20 MEQ TAB.ER PO STA ×2 (19:36→19:56)
[2019-01-17] MEDS ORDERED: NITROFURANTOIN MONOHYD/M-CRYST 100 MG CAP PO STA (19:53)
[2019-01-17] MEDS ORDERED: MELATONIN 3 MG TABLET PO SCH (21:00)
[2019-01-17] MEDS: ATORVASTATIN 20 MG TAB PO SCH (21:21)
[2019-01-18] MEDS: BUSPIRONE HCL 15 MG PO SCH (02:55)
[2019-01-18] MEDS: MELATONIN 3 MG TABLET PO SCH (21:19)
[2019-01-18] MEDS: NITROFURANTOIN MONOHYD/M-CRYST 100 MG CAP PO SCH (21:19)
[2019-01-18] MEDS: busPIRone HCl 5 MG TAB PO SCH (21:19)
[2019-01-18] MEDS: ATORVASTATIN 20 MG TAB PO SCH (21:19)
[2019-01-19] MEDS ORDERED: LORazepam 1 MG TAB PO STA (14:59)
[2019-01-19] MEDS: SERTRALINE 100 MG TAB PO SCH (15:02)
[2019-01-19] MEDS: busPIRone HCl 5 MG TAB PO SCH (15:02)
[2019-01-19] MEDS: LOSARTAN 50 MG TAB PO SCH (15:02)
[2019-01-19] MEDS: HYDROCHLOROTHIAZIDE 12.5 MG CAP PO SCH (15:03)
[2019-01-19] MEDS: NITROFURANTOIN MONOHYD/M-CRYST 100 MG CAP PO SCH (15:07)
[2019-01-20] MEDS ORDERED: SODIUM CHLORIDE 0.9% 1,000 ML IV ONE (03:05)
[2019-01-20 04:24] LABS: Basophils % (A) 1 %; Eosinophils # (A) 0.1 k/uL (0-0.7); Eosinophils % (A) 2 %; HCT 41.2 % (34.0-46.0); HGB 14.1 gm/dL (11.4-16.0); Lymphocytes # (A) 1.6 k/uL (1.0-4.8); Lymphocytes % (A) 30 %; MCH 30.3 pg (25.0-35.0); MCHC 34.2 g/dL (31.0-37.0); MCV 88.5 fL (80.0-100.0); Mean Platelet Volume 7.5; Monocytes # (A) 0.4 k/uL (0-1.0); Monocytes % (A) 8 %; Neutrophils # (A) 3.1 k/uL (1.3-7.7); Neutrophils % (A) 58 %; Platelet Count 267 k/uL (150-450); RBC 4.66 m/uL (3.80-5.40); RDW 12.7 % (11.5-15.5); WBC 5.3 k/uL (3.8-10.6)
[2019-01-20 04:35] LABS: ALT 21 U/L (9-52); AST 29 U/L (14-36); African American GFR (CKD) >90 (>60 ml/min/1.73 sqM); Alkaline Phosphatase 68 U/L (38-126); Anion Gap 8 mmol/L; Blood Urea Nitrogen 10 mg/dL (7-17); Calcium 9.9 mg/dL (8.4-10.2); Carbon Dioxide 28 mmol/L (22-30); Chloride 103 mmol/L (98-107); Glucose 142 mg/dL (74-99); Magnesium 1.8 mg/dL (1.6-2.3); Non-African American GFR(CKD) >90 (>60 ml/min/1.73 sqM); Potassium 3.5 mmol/L (3.5-5.1); Sodium 139 mmol/L (137-145); Total Bilirubin 0.7 mg/dL (0.2-1.3); Total Protein 6.8 g/dL (6.3-8.2)
[2019-01-20] MEDS ORDERED: cefTRIAXone IN SWFI 1,000 MG/10 ML SYRINGE IVP STA (08:19)
[2019-01-20] MEDS: MELATONIN 3 MG TABLET PO SCH ×3 (08:58→21:53)
[2019-01-20] MEDS: ATORVASTATIN 20 MG TAB PO SCH ×2 (09:51→21:53)
[2019-01-20] MEDS: HYDROCHLOROTHIAZIDE 12.5 MG CAP PO SCH ×2 (09:51→15:27)
[2019-01-20] MEDS: LOSARTAN 50 MG TAB PO SCH ×2 (09:51→15:27)
[2019-01-20 10:44] LABS: Appearance,Urine Turbid (Clear); Bacteria,Urine Many /hpf; Bilirubin,Urine Negative (Negative); Blood,Urine Trace (Negative); Color,Urine Red; Glucose,Urine (UA) Negative (Negative); Ketones,Urine Trace (Negative); Leukocyte Esterase,Urine Large (Negative); Mucus,Urine Many /hpf; Nitrite,Urine Positive (Negative); PH, Urine 5.5 (5.0-8.0); Protein,Urine 1+ (Negative); RBC,Urine 25 /hpf (0-5); Specific Gravity,Urine 1.018 (1.001-1.035); Squamous Epithelial Cell,Urine 2 /hpf (0-4); Urobilinogen,Urine <2.0 mg/dL (<2.0); WBC,Urine 166 /hpf (0-5)
[2019-01-20] MEDS: NITROFURANTOIN MONOHYD/M-CRYST 100 MG CAP PO SCH ×3 (11:33→21:14)
[2019-01-20] MEDS: busPIRone HCl 5 MG TAB PO SCH ×3 (11:34→21:14)
[2019-01-20] MEDS: SERTRALINE 100 MG TAB PO SCH ×2 (11:35→11:36)
[2019-01-20] MEDS ORDERED: ACETAMINOPHEN TAB 325 MG TAB PO PRN (12:39)
[2019-01-20] MEDS ORDERED: IBUPROFEN 400 MG TAB PO PRN (12:39)
[2019-01-20] MEDS ORDERED: NALOXONE 0.4 MG/ML 1 ML VIAL IV PRN (12:39)
[2019-01-20] MEDS ORDERED: CALAMINE/ZINC OXIDE LOTION 177 ML BTL TOPICAL PRN (17:50)
[2019-01-20] MEDS ORDERED: MINERAL OIL-WHITE PETROLATUM 120 GM JAR TOPICAL PRN (17:51)
[2019-01-20] MEDS: BUSPIRONE HCL 15 MG PO SCH (18:53)
[2019-01-20 22:12] VITALS: RESP 16
--- NOTE | 2019-01-20 22:46 | P.CONS ---
History of Present Illness - Reason for Consult Consult date: 01/20/19 - Chief Complaint depression - History of Present Illness 68-year-old woman who has long-standing history of depression is brought hospital by her son and all information is per current. The patient apparently was becoming more paranoid. She thought her son was trying to feed her stool for her food. She was no longer participating in hygiene and continue to have difficulty with picking at her skin and pulling out her hair. It is point in time provides no significant history in that she generally just has echolalia. Review of Systems ROS unobtainable: due to mental status Past Medical History Past Medical History: Cancer, Eye Disorder, GERD/Reflux, Hyperlipidemia, Hypertension, Pneumonia Additional Past Medical History / Comment(s): R breast cancer with lumpectomy and radiation, osteopenia, vertigo at times, dry eyes bilaterally. History of Any Multi-Drug Resistant Organisms: None Reported Past Surgical History: Breast Surgery, Tonsillectomy Additional Past Surgical History / Comment(s): 1989 R breast excisional biopsy, benign cyst removed from R breast, 2016 R breast lumpectomy d/t cancer, D&C, c ervical conization, colonoscopy Past Anesthesia/Blood Transfusion Reactions: No Reported Reaction Additional Past Anesthesia/Blood Transfusion Reaction / Comm: "Sensitivity to anesthesia" Smoking Status: Former smoker - Past Family History Father Family Medical History: Cancer Additional Family Medical History / Comment(s): Colon cancer. Mother Family Medical History: Deep Vein Thrombosis (DVT) Additional Family Medical History / Comment(s): Mother had back problems and scoliosis Medications and Allergies Home Medications and Allergies Comment(s): Current Medications Acetaminophen (Tylenol Tab) 650 mg PO Q6HR PRN PRN Reason: Mild Pain or Fever > 100.5 Atorvastatin Calcium (Lipitor) 20 mg PO HS [facility] Last Admin: 01/20/19 21:53 Dose: Not Given Documented by: Buspirone HCl (Buspar) 15 mg PO BID [facility] Last Admin: 01/20/19 21:14 Dose: 15 mg Documented by: Calamine (Calamine Lotion) 1 applic TOPICAL TID PRN PRN Reason: Skin Irritation Hydrochlorothiazide (Hydrodiuril) 12.5 mg PO DAILY [facility] Last Admin: 01/20/19 15:27 Dose: Not Given Documented by: Ibuprofen (Motrin) 400 mg PO Q6HR PRN PRN Reason: Mild Pain or Fever > 100.5 Losartan Potassium (Cozaar) 100 mg PO DAILY [facility] Last Admin: 01/20/19 15:27 Dose: Not Given Documented by: Melatonin (Melatonin) 3 mg PO HS [facility] Last Admin: 01/20/19 21:53 Dose: Not Given Documented by: Multi-Ingred Cream/Lotion/Oil/Oint (Eucerin Cream) 1 applic TOPICAL QID PRN PRN Reason: Dry Skin Naloxone HCl (Narcan) 0.2 mg IV Q2M PRN PRN Reason: Opioid Reversal Nitrofurantoin Macrocrystals (Macrobid) 100 mg PO BID [facility] Last Admin: 01/20/19 21:14 Dose: 100 mg Documented by: Sertraline HCl (Zoloft) 100 mg PO DAILY [facility] Last Admin: 01/20/19 11:36 Dose: 100 mg Documented by: Home Medications Medication Instructions Recorded Confirmed Type Olmesartan/Hydrochlorothiazide 1 tab PO DAILY 01/02/17 01/20/19 History [Benicar Hct 20-12.5 mg Tablet] Simvastatin [Zocor] 40 mg PO DAILY 01/02/17 01/20/19 History Sertraline [Zoloft] 100 mg PO DAILY 28 Days tab 11/24/18 01/20/19 Rx LORazepam [Ativan] 1 mg PO TID PRN 01/20/19 01/20/19 History Allergies Allergy/AdvReac Type Severity Reaction Status Date / Time No Known Allergies Allergy Verified 01/20/19 14:08 Physical Exam Vitals: Vital Signs Temp Pulse Pulse Resp BP BP Pulse Ox 01/20/19 16:04 98.2 F 79 17 148/85 98 01/20/19 16:00 17 01/20/19 14:43 97.8 F 85 18 130/88 99 01/20/19 09:00 97.6 F 80 20 140/70 98 01/20/19 01:00 99 F 81 16 151/73 98 Intake and Output 01/20/19 01/20/19 01/20/19 06:59 14:59 22:59 Other: Voiding Method Incontinent Weight 61.235 kg 68-year-old woman who is comfortable, has been cleaned up by the nursing staff so has improved hygiene HEENT: Anicteric conjunctiva are pink and moist nasal mucosa grossly intact without significant lesions, there is no thrush. The patient is evidence of lesions in the lower aspect of her right lip as well as on her face. During exam the patient is picking at these areas. She is evidence of some patchy hair loss patient does talk about some hair. Neck: The neck is supple without significant lymphadenopathy or thyromegaly. Lungs: Good bilateral air entry without significant crackles or wheezing. There is no significant bronchial sounds. There is no egophony or dullness. Heart: Regular rate and rhythm with an audible S1-S2, no S3 no S4. There is no significant murmur click or rub, PMI was nondisplaced. Abdomen: Positive bowel sounds soft and nontender without palpable masses or organomegaly. There was no guarding or rebound. Extremities: The upper extremities have excellent pulses they are symmetric, no significant petechiae or telangiectasia. No splinter hemorrhages were noted. The lower extremities are free from significant edema. The peripheral pulses were 2+ and symmetric. Neuro: The patient is a poor historian, she however is awake and alert but does exhibit some echolalia. Results CBC & Chem 7: 01/20/19 04:10 01/20/19 04:10 Labs: Abnormal Lab Results - Last 24 Hours (Table) 01/20/19 01/20/19 Range/Units 04:10 09:38 Glucose 142 H (74-99) mg/dL Urine Appearance Turbid H (Clear) Urine Protein 1+ H (Negative) Urine Ketones Trace H (Negative) Urine Blood Trace H (Negative) Urine Nitrite Positive H (Negative) Ur Leukocyte Esterase Large H (Negative) Urine RBC 25 H (0-5) /hpf Urine WBC 166 H (0-5) /hpf Urine WBC Clumps Few H (None) /hpf Urine Bacteria Many H (None) /hpf Urine Mucus Many H (None) /hpf Microbiology - Last 24 Hours (Table) 01/20/19 09:38 Urine Culture - Preliminary Urine,Voided 01/17/19 21:04 Urine Culture - Final Urine,Voided Klebsiella pneumoniae Laboratory Results WBC 5.3 k/uL (3.8-10.6) 01/20/19 04:10 RBC 4.66 m/uL (3.80-5.40) 01/20/19 04:10 Hgb 14.1 gm/dL (11.4-16.0) 01/20/19 04:10 Hct 41.2 % (34.0-46.0) 01/20/19 04:10 MCV 88.5 fL (80.0-100.0) 01/20/19 04:10 MCH 30.3 pg (25.0-35.0) 01/20/19 04:10 MCHC 34.2 g/dL (31.0-37.0) 01/20/19 04:10 RDW 12.7 % (11.5-15.5) 01/20/19 04:10 Plt Count 267 k/uL (150-450) 01/20/19 04:10 Neutrophils % 58 % 01/20/19 04:10 Lymphocytes % 30 % 01/20/19 04:10 Monocytes % 8 % 01/20/19 04:10 Eosinophils % 2 % 01/20/19 04:10 Basophils % 1 % 01/20/19 04:10 Neutrophils # 3.1 k/uL (1.3-7.7) 01/20/19 04:10 Lymphocytes # 1.6 k/uL (1.0-4.8) 01/20/19 04:10 Monocytes # 0.4 k/uL (0-1.0) 01/20/19 04:10 Eosinophils # 0.1 k/uL (0-0.7) 01/20/19 04:10 Basophils # 0.0 k/uL (0-0.2) 01/20/19 04:10 Sodium 139 mmol/L (137-145) 01/20/19 04:10 Potassium 3.5 mmol/L (3.5-5.1) 01/20/19 04:10 Chloride 103 mmol/L (98-107) 01/20/19 04:10 Carbon Dioxide 28 mmol/L (22-30) 01/20/19 04:10 Anion Gap 8 mmol/L 01/20/19 04:10 BUN 10 mg/dL (7-17) 01/20/19 04:10 Creatinine 0.58 mg/dL (0.52-1.04) 01/20/19 04:10 Est GFR (CKD-EPI)AfAm >90 (>60 ml/min/1.73 sqM) 01/20/19 04:10 Est GFR (CKD-EPI)NonAf >90 (>60 ml/min/1.73 sqM) 01/20/19 04:10 Glucose 142 mg/dL (74-99) H 01/20/19 04:10 Calcium 9.9 mg/dL (8.4-10.2) 01/20/19 04:10 Magnesium 1.8 mg/dL (1.6-2.3) 01/20/19 04:10 Total Bilirubin 0.7 mg/dL (0.2-1.3) 01/20/19 04:10 AST 29 U/L (14-36) 01/20/19 04:10 ALT 21 U/L (9-52) 01/20/19 04:10 Alkaline Phosphatase 68 U/L (38-126) 01/20/19 04:10 Ammonia <9 umol/L (<30) 01/17/19 13:30 Creatine Kinase 96 U/L (30-135) 01/17/19 13:30 Total Protein 6.8 g/dL (6.3-8.2) 01/20/19 04:10 Albumin 4.0 g/dL (3.5-5.0) 01/20/19 04:10 TSH 2.340 mIU/L (0.465-4.680) 01/17/19 13:30 Urine Color Red 01/20/19 09:38 Urine Appearance Turbid (Clear) H 01/20/19 09:38 Urine pH 5.5 (5.0-8.0) 01/20/19 09:38 Ur Specific [place] 1.018 (1.001-1.035) 01/20/19 09:38 Urine Protein 1+ (Negative) H 01/20/19 09:38 Urine Glucose (UA) Negative (Negative) 01/20/19 09:38 Urine Ketones Trace (Negative) H 01/20/19 09:38 Urine Blood Trace (Negative) H 01/20/19 09:38 Urine Nitrite Positive (Negative) H 01/20/19 09:38 Urine Bilirubin Negative (Negative) 01/20/19 09:38 Urine Urobilinogen <2.0 mg/dL (<2.0) 01/20/19 09:38 Ur Leukocyte Esterase Large (Negative) H 01/20/19 09:38 Urine RBC 25 /hpf (0-5) H 01/20/19 09:38 Urine WBC 166 /hpf (0-5) H 01/20/19 09:38 Urine WBC Clumps Few /hpf (None) H 01/20/19 09:38 Ur Squamous Epith Cells 2 /hpf (0-4) 01/20/19 09:38 Urine Bacteria Many /hpf (None) H 01/20/19 09:38 Hyaline Casts 12 /lpf (0-2) H 01/17/19 13:30 Urine Mucus Many /hpf (None) H 01/20/19 09:38 Urine Opiates Screen Not Detected (NotDetected) 01/17/19 13:30 Ur Oxycodone Screen Not Detected (NotDetected) 01/17/19 13:30 Urine Methadone Screen Not Detected (NotDetected) 01/17/19 13:30 Ur Propoxyphene Screen Not Detected (NotDetected) 01/17/19 13:30 Ur Barbiturates Screen Not Detected (NotDetected) 01/17/19 13:30 U Tricyclic Antidepress Not Detected (NotDetected) 01/17/19 13:30 Ur Phencyclidine Scrn Not Detected (NotDetected) 01/17/19 13:30 Ur Amphetamines Screen Not Detected (NotDetected) 01/17/19 13:30 U Methamphetamines Scrn Not Detected (NotDetected) 01/17/19 13:30 U Benzodiazepines Scrn Not Detected (NotDetected) 01/17/19 13:30 Urine Cocaine Screen Not Detected (NotDetected) 01/17/19 13:30 U Marijuana (THC) Screen Not Detected (NotDetected) 01/17/19 13:30 Microbiology 01/20/19 09:38 Urine,Voided Urine Culture - Preliminary 01/17/19 21:04 Urine,Voided Urine Culture - Final Klebsiella pneumoniae Assessment and Plan (1) Acute cystitis with positive culture Narrative/Plan: 68 year old woman presents to ER by family due to behaviour changes, and is now admitted. Had mild urine symptoms, with some mild burning which is now resolved. She denies any suprapubic pain. She denies frequency. She denies flank pain. There is no notation of any fevers chills or rigors. The patient appears to have acute cystitis and has a very sensitive pathogen for which Macrodantin can be used for 3 days to treat the cystitis. She appears to have no systemic infection at this point in time. Current Visit: Yes Status: Acute Code(s): N30.00 - ACUTE CYSTITIS WITHOUT HEMATURIA SNOMED Code(s): 204390123 (2) Major depress, sev w/ psych Current Visit: Yes Status: Acute Code(s): F32.3 - MAJOR DEPRESSV DISORD, SINGLE EPSD, SEVERE W PSYCH FEATURES SNOMED Code(s): 64244094
[2019-01-21 05:32] VITALS: PULSE 70
[2019-01-21] MEDS: busPIRone HCl 5 MG TAB PO SCH (09:25)
[2019-01-21] MEDS: NITROFURANTOIN MONOHYD/M-CRYST 100 MG CAP PO SCH (09:26)
[2019-01-21] MEDS: HYDROCHLOROTHIAZIDE 12.5 MG CAP PO SCH (09:26)
[2019-01-21] MEDS ORDERED: SERTRALINE 100 MG TAB PO SCH (10:00)
[2019-01-21] MEDS ORDERED: LOSARTAN 50 MG TAB PO SCH (10:00)
[2019-01-21] MEDS: SERTRALINE 100 MG TAB PO SCH (10:30)
[2019-01-21] MEDS: LOSARTAN 50 MG TAB PO SCH (10:30)
--- NOTE | 2019-01-21 11:50 | P.CN ---
Psychiatric Consult - . Consult date: 01/21/19 Consult:: 01/21/19 11:21 IDENTIFYING DATA: This patient is a 68-year-old female who currently lives in her house alone has 1 son and 2 grandkids. Patient is retired. HISTORY OF PRESENT ILLNESS: The patient he presented to the emergency department with altered mental status and paranoia along with increase in anxiety/depression. As per ER report, patient's son stated that patient thought food was stool and was not taking her medications Zoloft. Patient was found to have a urinary tract infection in the ER and was admitted to observations. Psychiatry was consulted for altered mental status and paranoia. Nurse taking care of patient claims that patient appeared to be suspicious and was selectively taking her medications. Patient was seen at the bedside by telegraphic typewriter installer and appeared to be anxious and disheveled and have various open lesions over her face and on the top of her head. Patient claimed she had been feeling anxious at home and started picking at her skin. She also states that she had been going through "a lot at home" and described her relationship with her boyfriend ending and also spoke about her finances and not being able to work. She states that since her discharge from the mental unit on November 2018 she has not started back up at work and claims that she has not been taking her medications at home. At this time patient when asked about her medications in the hospital she states "I never had to take that many" and was suspicious/paranoid about her food and her care in the hospital. She claims that she is been having poor sleep and poor appetite and also was fairly superficial and minimizing her symptoms and was focused on discharge. At this time patient denies any homical ideations, intent or plan. Has some passive suicidal ideations. Patient denies any auditory, visual hallucinations. PAST PSYCHIATRIC HISTORY: Patient was recently admitted to the mental health unit in November 2018. Patient has a history of anxiety and depression and was recently on Zoloft 100 mg daily plus BuSpar 50 mg twice a day which the patient was not taking at home. Patient states that she did go to follow-up with [facility]. Patient has not been seeing a psychiatrist since discharge previously. Patient denies any previous history of suicide attempts. PAST MEDICAL HISTORY: Right sided breast cancer status post radiation treatment, HI, hypertension, osteoarthritis. ALLERGIES: as per EMR. CHEMICAL DEPENDENCY HISTORY: Denies any recreational substance use at this time. Denies any alcohol or cigarettes. FAMILY PSYCHIATRIC/SUBSTANCE USE HISTORY: And that her mother suffered from depression SOCIAL HISTORY: Patient claims that she was born and raised in [facility] and completed high school and attended college for 2 years. She states that she worked in an [employer] company her whole life. MENTAL STATUS EXAM: General Appearance: Patient appears to be thin/frail, older than stated age is alert and appears anxious and is superficial/guarded. Poor hygiene/grooming. Multiple open lesions over patient's lips and face. Behavior: Patient is anxiously lying in bed without any agitated behavior. Superficially cooperative. Speech: Patient's speech is fluent and nonpressured. Mood/Affect: Patient reports their mood is "anxious and depressed", affect is congruent Suicidality/Homicidality: Patient denies having any homicidal ideation intent or plan. Passive passive suicidal ideations. Perceptions: Patient denies any auditory or visual hallucinations. Though content/process: Thought process is linear and goal-directed. Paranoia about her food and medications. Memory and concentration: AOX3, grossly intact for the purposes of this session. Can spell "WORLD" backwards Judgment and insight: Poor IMPRESSIONS: Major Depression with psychotic features Anxiety disorder unspecified PLAN: -At this time patient does meet criteria for inpatient psychiatric admission. -Delirium precautions recommended with patient including - avoiding use of narcotics and STRUCTURAL STEEL PAINTER sedatives, limit anticholinergic medications when possible, frequent re-orientation, minimize use of restraints, open window shades during the day and close them at night -Would recommend the following medication changes/additions: Patient can continue on Zoloft 100 mg daily for anxiety/mood and BuSpar 15 mg twice a day for anxiety. -1:1 sitter for safety -Cannot leave AMA at this time. Patient will need a petition and certification if attempting to leave AMA. -When medically stable, patient is eligible for transfer to a psych bed when available. 01/21/19 11:37 01/21/19 11:42
--- NOTE | 2019-01-21 12:16 | P.HPIM ---
History of Present Illness H&P Date: 01/21/19 Chief Complaint: depression, anxiety HISTORY AND PHYSICAL AND DISCHARGE SUMMARY: This is a 68-year-old female patient of Dr. Castañeda with past medical history of hypertension, hyperlipidemia, right-sided breast cancer status post lumpectomy and radiation therapy, osteopenia. The patient last saw Dr. Castañeda 2 weeks ago. Patient initially presented to the emergency center on January 17 for depression and son brought her in for concerns of paranoia and altered activity. Patient expressed that she was depressed and had some suicidal ideations. She has had poor hygiene and has been picking at her skin and pulling her hair. There was a statement that she thought the food she was eating was her son's stool. There are no alcohol or drug issues. The patient has been on Zoloft but apparently has not been taking this. The patient has been afebrile and vital signs stable, pulse ox 90% on room air. WBC normal, potassium 3.2, blood sugar 135. Urine drug screen was negative. Urinalysis was leukoesterase large, RBC 16, WBCs 86, bacteria many. Patient has been treated for urinary tract infection. Patient apparently waited in the emergency center for 3 days waiting for a psychiatric facility to accept the patient as patient apparently needed to be a voluntary admission. [facility]. She has been seen in consultation by psychiatry and by Dr. Cano. Dr. Cano has recommended Macrodantin for 3 days for treatment of cystitis which will be completed as of yesterday. Patient also presents with neuro dermatitis. 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 Patient has been accepted to the mental health unit and will be transferred there today. Patient is cleared medically for transfer to the mental health unit. Review of Systems Constitutional: Reports poor appetite, Denies chills, Denies fatigue, Denies fever Eyes: denies blurred vision, denies pain Ears, nose, mouth and throat: Denies headache, Denies sore throat Cardiovascular: Denies chest pain, Denies shortness of breath Respiratory: Denies cough Gastrointestinal: Denies abdominal pain, Denies diarrhea, Denies nausea, Denies vomiting Genitourinary: Denies dysuria, Denies hematuria Musculoskeletal: Denies myalgias Integumentary: Reports wounds, Denies pruritus, Denies rash Neurological: Denies numbness, Denies weakness Psychiatric: Reports anxiety, Reports confusion, Reports depression, Reports hallucinations Endocrine: Denies fatigue, Denies weight change Past Medical History Past Medical History: Cancer, Eye Disorder, GERD/Reflux, Hyperlipidemia, Hyp ertension, Pneumonia Additional Past Medical History / Comment(s): R breast cancer with lumpectomy and radiation, osteopenia, vertigo at times, dry eyes bilaterally. History of Any Multi-Drug Resistant Organisms: None Reported Past Surgical History: Breast Surgery, Tonsillectomy Additional Past Surgical History / Comment(s): 1989 R breast excisional biopsy, benign cyst removed from R breast, 2016 R breast lumpectomy d/t cancer, D&C, cervical conization, colonoscopy Past Anesthesia/Blood Transfusion Reactions: No Reported Reaction Additional Past Anesthesia/Blood Transfusion Reaction / Comment(s): "Sensitivity to anesthesia" Smoking Status: Former smoker Additional Past Alcohol Use History / Comment(s): Patient was a smoker one pack per day and is unsure when she quit smoking. She drank a little alcohol in the past but none now. - Past Family History Father Family Medical History: Cancer Additional Family Medical History / Comment(s): Father at age 74 from colon cancer. Mother Family Medical History: Deep Vein Thrombosis (DVT) Additional Family Medical History / Comment(s): Mother had back problems and scoliosis and at age 89. Brother(s) Additional Family Medical History / Comment(s): Patient has 1 brother with no major medical problems. Patient does not have any sisters. Patient has 1 son. Medications and Allergies Home Medications Medication Instructions Recorded Confirmed Type Olmesartan/Hydrochlorothiazide 1 tab PO DAILY 01/02/17 01/20/19 History [Benicar Hct 20-12.5 mg Tablet] Simvastatin [Zocor] 40 mg PO DAILY 01/02/17 01/20/19 History Sertraline [Zoloft] 100 mg PO DAILY 28 Days tab 11/24/18 01/20/19 Rx LORazepam [Ativan] 1 mg PO TID PRN 01/20/19 01/20/19 History Allergies Allergy/AdvReac Type Severity Reaction Status Date / Time No Known Allergies Allergy Verified 01/20/19 14:08 Physical Exam Vitals: Vital Signs Temp Pulse Pulse Resp BP BP Pulse Ox 01/21/19 05:31 97.4 F L 70 16 142/67 99 01/20/19 22:11 97.6 F 89 16 165/78 97 01/20/19 16:04 98.2 F 79 17 148/85 98 01/20/19 16:00 17 01/20/19 14:43 97.8 F 85 18 130/88 99 Intake and Output 01/20/19 01/21/19 01/21/19 22:59 06:59 14:59 Intake Total 100 590 Balance 100 590 Intake: Oral 100 590 Other: Voiding Method Incontinent Incontinent Incontinent # Voids 1 Weight 61.235 kg Gen: This is a thin 68-year-old female. Patient is in bed and appears to be comfortable. No acute distress noted. HEENT: Head is atraumatic, normocephalic. Pupils equal, round. Sclerae is anicteric. Patient has multiple skin lesions on her right lip and face along wi th patchy hair loss. NECK: Supple. No JVD. No lymphadenopathy. No thyromegaly. LUNGS: Clear to auscultation. No wheezes or rhonchi. No intercostal retractions. HEART: Regular rate and rhythm. No murmur. ABDOMEN: Soft. Bowel sounds are present. No masses. No tenderness. EXTREMITIES: No pedal edema. No calf tenderness. Dorsalis pedis +2 bilaterally. NEUROLOGICAL: Patient is awake, alert and oriented x3. Cranial nerves 2 through 12 are grossly intact. Results CBC & Chem 7: 01/20/19 04:10 01/20/19 04:10 Labs: Microbiology - Last 24 Hours (Table) 01/20/19 09:38 Urine Culture - Preliminary Urine,Voided 01/17/19 21:04 Urine Culture - Final Urine,Voided Klebsiella pneumoniae Thrombosis Risk Factor Assmnt - DVT/VTE Prophylaxis DVT/VTE Prophylaxis: Low risk, early ambulation encouraged - Choose All That Apply Any of the Below Risk Factors Present?: Yes Other Risk Factors: Yes Each Risk Factor Represents 2 Points: Age 61-74 years Each Risk Factor Represents 3 Points: Family history of DVT/PE Other congenital or acquired thrombophilia - If yes, enter type in comment: No Thrombosis Risk Factor Assessment Total Risk Factor Score: 5 Thrombosis Risk Factor Assessment Level: High Risk Assessment and Plan Plan: 1. Recurrent depression with psychotic features. Continue Zoloft 100 mg daily, BuSpar 50 mg twice daily. 2. Generalized anxiety disorder. 3. Cystitis status post completion of treatment. 4. Neurodermatitis. Calamine lotion. Consult with Dr. Cano appreciated. 5. Hyperlipidemia. Continue Lipitor. 6. Hypertension. Continue losartan 100 mg daily. Patient placed as an observation status. Discharge plan: Discharge to the [facility] Impression and plan of care have been directed as dictated by the signing physician. Rosaura Mack nurse practitioner acting as scribe for signing physician.
[2019-01-21 12:37] VITALS: BP 144/72; TEMP 98
[2019-01-21 16:03] VITALS: BMI 19.3
[2019-01-21] MEDS ORDERED: MELATONIN 3 MG TABLET PO SCH (21:00)
[2019-01-21] MEDS ORDERED: ATORVASTATIN 20 MG TAB PO SCH (21:00)
== END 2019-01-21 20:13 ==
LOC: EC 12:36 → 3NMEDONC 01-20 12:39 → 3SCARD 01-20 22:49
PROVIDERS: ADMIT Internal Medicine; ATTEND Internal Medicine
DX: N30.01 Acute cystitis with hematuria (principal); F41.1 Generalized anxiety disorder; F32.3 Major depressive disorder, single episode, severe with psychotic features; L28.0 Lichen simplex chronicus; E78.5 Hyperlipidemia, unspecified; I10 Essential (primary) hypertension; M19.90 Unspecified osteoarthritis, unspecified site; L65.8 Other specified nonscarring hair loss; H04.123 Dry eye syndrome of bilateral lacrimal glands; K21.9 Gastro-esophageal reflux disease without esophagitis; Z85.3 Personal history of malignant neoplasm of breast; Z92.3 Personal history of irradiation; Z98.890 Other specified postprocedural states; Z90.89 Acquired absence of other organs; Z79.899 Other long term (current) drug therapy; Z79.1 Long term (current) use of non-steroidal anti-inflammatories (NSAID); Z87.39 Personal history of other diseases of the musculoskeletal system and connective tissue; Z91.89 Other specified personal risk factors, not elsewhere classified; Z87.01 Personal history of pneumonia (recurrent); Z87.891 Personal history of nicotine dependence; Z80.0 Family history of malignant neoplasm of digestive organs; Z80.3 Family history of malignant neoplasm of breast; Z80.41 Family history of malignant neoplasm of ovary; Z82.49 Family history of ischemic heart disease and other diseases of the circulatory system; Z82.69 Family history of other diseases of the musculoskeletal system and connective tissue; Z81.8 Family history of other mental and behavioral disorders
CPT/HCPCS: 82075; 96365; 99285; 36415 ×2; 80053 ×2; 84443; 82140; 82550; 83735 ×2; 85025 ×2; 81001 ×2; 80306; 87086 ×2; 87077; 87186; 71046; G0378 ×2; J0696

== ENCOUNTER 2019-01-21 19:48 | Inpatient (IN) | payer BC, MEDICARE ==
[2019-01-21] MEDS ORDERED: ACETAMINOPHEN TAB 325 MG TAB PO PRN (20:35)
[2019-01-21] MEDS ORDERED: MAGNESIUM HYDROXIDE 2,400 MG/10 ML CUP PO PRN (20:35)
[2019-01-21] MEDS ORDERED: MAG HYDROX/AL HYDROX/SIMETH 30 ML CUP PO PRN (20:35)
[2019-01-21] MEDS ORDERED: LORazepam 1 MG TAB PO PRN (20:35)
[2019-01-21] MEDS ORDERED: ZIPRASIDONE 20 MG VIAL IM PRN (20:35)
[2019-01-21] MEDS ORDERED: CALAMINE/ZINC OXIDE LOTION 177 ML BTL TOPICAL PRN (20:38)
[2019-01-21] MEDS ORDERED: MELATONIN 3 MG TABLET PO SCH (21:00)
[2019-01-21] MEDS: busPIRone HCl 5 MG TAB PO SCH (22:03)
[2019-01-22] MEDS ORDERED: ATORVASTATIN 20 MG TAB PO SCH (09:00)
[2019-01-22] MEDS ORDERED: SERTRALINE 100 MG TAB PO SCH (09:00)
[2019-01-22] MEDS ORDERED: HYDROCHLOROTHIAZIDE 12.5 MG CAP PO SCH (09:00)
[2019-01-22] MEDS ORDERED: LOSARTAN 50 MG TAB PO SCH (09:00)
[2019-01-22] MEDS: busPIRone HCl 5 MG TAB PO SCH (09:08)
[2019-01-22 10:22] VITALS: RESP 20; TEMP 97.4
[2019-01-22] MEDS ORDERED: MELATONIN 3 MG TABLET PO PRN (12:32)
[2019-01-22] MEDS ORDERED: MULTIVITAMINS, THERA 1 EACH TAB PO SCH (12:45)
--- NOTE | 2019-01-22 12:54 | P.HP ---
Psychiatric H&P - . H&P Date: 01/22/19 History & Physical: Allergies Allergy/AdvReac Type Severity Reaction Status Date / Time No Known Allergies Allergy Verified 01/20/19 14:08 Vital Signs Temp 97.4 F L 01/22/19 10:20 Pulse 123 H 01/22/19 10:20 Resp 20 01/22/19 10:20 BP 120/71 01/22/19 10:20 Pulse Ox 98 01/22/19 10:20 Intake & Output 01/21/19 01/22/19 01/22/19 18:59 06:59 18:59 Weight 54.522 kg Laboratory Last Values Triglycerides 125 mg/dL (<150) 01/21/19 04:10 Cholesterol 179 mg/dL (<200) 01/21/19 04:10 LDL Cholesterol, Calc 115 mg/dL (0-99) H 01/21/19 04:10 HDL Cholesterol 39 mg/dL (40-60) L 01/21/19 04:10 TSH 2.660 mIU/L (0.465-4.680) 01/21/19 04:10 01/22/19 12:38 IDENTIFYING DATA: Patient is a 68-year-old female currently lives in a house alone has 1 son and 2 grandkids and is retired currently. HPI: Patient presented to the hospital into the emergency department with altered mental status and paranoia along with an increase in her anxiety and depression. The ER report claimed that the patient's son found that the patient was paranoid about her food and thought that stool was in it and was also not taking her medications at home. Patient was transferred from the ER to observation for altered mental status with UTI and was treated with Macrobid. Patient was transferred from observations to mental health inpatient yesterday a fter being cleared by psychiatry CL. Patient today was standing near the nurse's desk nearly the home morning and appeared to have multiple skin lesions over her head and face near her lips and also pending short hair and also appeared to be frail. Patient was agreeable to speak with the consumer loan underwriter and appeared to be fairly anxious during the interview process. Patient asked several questions to consumer loan underwriter about what he was thinking about her and was catastrophizing and had all or none thinking about her condition and her hospital stay. Patient asked repeatedly to be discharged and states that she does not need to be in the hospital and had poor insight about her medications and her condition. Patient did state that she has been experiencing high levels of anxiety and depression has even been picking at her face when her anxiety is elevated and also been plucking her hair. 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 Patient was recently discharged from the mental health unit on November 2018 after a 4 day stay and states that she was taking her Zoloft at home for the first week or 2 and then discontinued it. Patient endorsed having multiple stressors at home and worries about the children and grandchildren and her family. She states that she did not go back to work and her relationship with her boyfriend ended and patient continues to be preoccupied with her finances and believing that she does not have enough. Several times during the interview patient asked if she will be in the hospital "for eternity" and also believed that everybody had left the unit except for her. She claims that she has poor sleep and poor appetite and poor energy at this time. Difficulties with concentration. Patient denies any suicidal or active suicidal ideations however does claim that "sometimes he'll be better if I wasn't here" she denies any homicidal ideations intent or plan. At this time patient denies any visual hallucinations and states that she may hear voices at times but claims that it may be her thoughts. Patient denies any recreational drug use at this time and denies any alcohol or cigarette use. PAST PSYCHIATRIC HISTORY: Patient states that his recently admitted to the mental health unit in November 2018 and was discharged on Zoloft which she stopped taking shortly after along with BuSpar 15 mg twice a day. Patient has a history of anxiety and depression. Patient states that she's been going [facility]. Patient denied seeing a psychiatrist upon discharge. She denies any previous suicide attempts. PMH: Right-sided breast cancer status post radiation treatment, HLP, hypertension, osteoarthritis ALLERGIES: as per EMR CHEMICAL DEPENDENCY HISTORY: as per HPI FAMILY PSYCHIATRIC/SUBSTANCE USE HISTORY: Claims that her mother suffered from depression SOCIAL HISTORY: Patient claims that she was born and raised in [facility] and completed high school and attended college for 2 years. 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 MENTAL STATUS EXAM: General Appearance: Patient appears to be thin/frail, older than stated age and appears to be anxious. Patient is superficial/guarded poor hygiene and grooming. Multiple lesions over patient's lip and face. Thinning hair Behavior: Patient is anxiously seated without any agitated behavior. Superficially cooperative. Speech: Patient's speech is fluent and nonpressured. Hesitant. Mood/Affect: Patient reports their mood is depressed and anxious, affect is congruent and appears anxious. Suicidality/Homicidality: Patient denies having any homicidal ideation intent or plan. Patient has passive suicidal ideations, no intent or plan. Perceptions: Patient denies any visual hallucinations. Admits to vague auditory hallucinations. Though content/process: thought content and thought process is linear and goal- directed. Paranoia, delusional. Patient is focused on discharge. Memory and concentration: AOX3, grossly intact for the purposes of this session. Can spell "WORLD" backwards Judgment and insight: poor/superficial. STRENGTHS/WEAKNESSES: strength is that patient is resilient and has supportive family, weaknesses that patient has multiple stressors and poor coping skills. INTELLECT: average IMPRESSIONS: Major Depression with psychotic features Anxiety disorder unspecified rule out obsessive-compulsive disorder Trichotillomania PLAN: -Patient is admitted under voluntary status to MHU for stabilization of psychiatric symptoms and safety. Patient signed adult voluntary form and medication consent and is placed in patient's chart. -Medications : Will re-start patient on Zoloft and increase to a dose of 150 mg daily for anxiety/mood. Will start Seroquel 25 mg daily at bedtime for sleep/paranoia. Continue with BuSpar 15 mg twice a day for anxiety. -Ativan and Geodon PRN for agitation/aggression -Currently awaiting hospitalist for evaluation and treatment of medical comorbidities. Will start topical Nadya trace in for open lesions. -Reordered urine analysis, currently pending. Patient denies any urinary symptoms at this time and we'll continue to monitor. Patient was treated with Macrobid and seen by infectious disease upon admission. -Patient was informed of the risks, benefits and side effects of the medication and patient verbally consented to taking the medications. Patient signed med consent form and was placed in chart. -NRT -not need this patient does not smoke -SW on board for discharge planning
[2019-01-22] MEDS ORDERED: BACITRACIN 500 UNIT/GM OINT 28.4 GM TUBE TOPICAL SCH (13:00)
[2019-01-22 13:57] LABS: Glucose,Whole Blood 178 mg/dL (75-99)
[2019-01-22 14:36] VITALS: BMI 17.2
--- NOTE | 2019-01-22 14:59 | CT ---
EXAMINATION TYPE: CT brain wo con DATE OF EXAM: 01/22/2019 COMPARISON: Prior CT brain 11/20/2018 HISTORY: Fall. Trauma and pain CT DLP: 1012 mGycm Automated exposure control for dose reduction was used. Head CT performed using departmental protocol FINDINGS: No significant interval change. Cerumen present in the external auditory canal on the left. No hemorr ayan or hydrocephalus. Calvarium is intact. Paranasal sinuses and mastoid air cells as visualized are normal. IMPRESSION: NO ACUTE BRAIN ABNORMALITY.
[2019-01-22 15:01] VITALS: BP 82/46; PULSE 65
[2019-01-22 15:17] LABS: Basophils % (A) 0 %; Eosinophils % (A) 0 %; HCT 41.2 % (34.0-46.0); HGB 13.4 gm/dL (11.4-16.0); Lymphocytes # (A) 1.5 k/uL (1.0-4.8); Lymphocytes % (A) 15 %; MCH 29.3 pg (25.0-35.0); MCHC 32.4 g/dL (31.0-37.0); MCV 90.2 fL (80.0-100.0); Mean Platelet Volume 7.4; Monocytes # (A) 0.6 k/uL (0-1.0); Monocytes % (A) 6 %; Neutrophils # (A) 7.3 k/uL (1.3-7.7); Neutrophils % (A) 77 %; Platelet Count 296 k/uL (150-450); RBC 4.57 m/uL (3.80-5.40); RDW 12.6 % (11.5-15.5); WBC 9.5 k/uL (3.8-10.6)
[2019-01-22 15:22] LABS: Albumin 3.9 g/dL (3.5-5.0); Calcium 10.1 mg/dL (8.4-10.2); Potassium 3.4 mmol/L (3.5-5.1); Total Bilirubin 0.6 mg/dL (0.2-1.3); Total Protein 6.6 g/dL (6.3-8.2)
[2019-01-22 18:31] LABS: Hemoglobin A1C 5.4 % (4.0-6.0)
[2019-01-22] MEDS ORDERED: QUEtiapine 25 MG TAB PO SCH (21:00)
[2019-01-23] MEDS ORDERED: SERTRALINE 100 MG TAB PO SCH (09:00)
--- NOTE | 2019-01-23 12:14 | P.DS ---
Providers Date of admission: 01/21/19 20:14 Expected date of discharge: 01/22/19 Attending physician: Dong Melendez MD Consults: 01/21/19 20:35 Consult Physician Routine Consulting Provider: Renu Lundberg Consult Reason/Comments: H & P and medical care Do you want consulting provider notified?: Yes 01/21/19 21:40 Consult Physician Routine Consulting Provider: Gema Ribera Consult Reason/Comments: H & P and medical care Do you want consulting provider notified?: Yes Primary care physician: [place] [facility] Course: Date of admission: 01/22/19 16:12 Expected date of discharge: 01/22/19 Attending physician: Renu Lundberg Consults: 01/22/19 16:29 Consult Physician Routine Consulting Provider: Dong Melendez Consult Reason/Comments: major depression,anxiety Do you want consulting provider notified?: Yes 01/23/19 08:54 Consult Physician Routine Consulting Provider: Al Hardin Consult Reason/Comments: elevated troponin Do you want consulting provider notified?: Yes Primary care physician: Renu Lundberg - Discharge Diagnosis(es) (1) Anxiety disorder Current Visit: Yes Status: Acute Priority: Medium (2) Major depressive disorder with psychotic features Current Visit: Yes Status: Acute Priority: High Hospital Course: Admission HPI: Patient is a 68-year-old female currently lives in a house alone has 1 son and 2 grandkids and is retired currently. Patient presented to the hospital into the emergency department with altered mental status and paranoia along with an increase in her anxiety and depression. The ER report claimed that the pat nelsonnt's son found that the patient was paranoid about her food and thought that stool was in it and was also not taking her medications at home. Patient was transferred from the ER to observation for altered mental status with UTI and was treated with Macrobid. Patient was transferred from observations to mental health inpatient yesterday after being cleared by psychiatry CL. Patient today was standing near the nurse's desk nearly the home morning and appeared to have multiple skin lesions over her head and face near her lips and also pending short hair and also appeared to be frail. Patient was agreeable to speak with the video game script writer and appeared to be fairly anxious during the interview process. Patient asked several questions to video game script writer about what he was thinking about her and was catastrophizing and had all or none thinking about her condition and her hospital stay. Patient asked repeatedly to be discharged and states that she does not need to be in the hospital and had poor insight about her medications and her condition. Patient did state that she has been experiencing high levels of anxiety and depression has even been picking at her face when her anxiety is elevated and also been plucking her hair. 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 Patient was recently discharged from the mental health unit on November 2018 after a 4 day stay and states that she was taking her Zoloft at home for the first week or 2 and then discontinued it. Patient endorsed having multiple stressors at home and worries about the children and grandchildren and her family. She states that she did not go back to work and her relationship with her boyfriend ended and patient continues to be preoccupied with her finances and believing that she does not have enough. Several times during the interview patient asked if she will be in the hospital "for eternity" and also believed that everybody had left the unit except for her. She claims that she has poor sleep and poor appetite and poor energy at this time. Difficulties with concentration. Patient denies any suicidal or active suicidal ideations however does claim that "sometimes he'll be better if I wasn't here" she denies any homicidal ideations intent or plan. At this time patient denies any visual hallucinations and states that she may hear voices at times but claims that it may be her thoughts. Patient denies any recreational drug use at this time and denies any alcohol or cigarette use. Hospital course: Upon admission to the unit patient was initially depressed and anxious and exhibiting paranoia. Patient was however directable and agreeable to commence treatment. Patient to occur morning medications and had stable vital signs in the morning. Patient was noticed by nursing staff to be laying down on the floor in the hallway an patient stated that she fell to the floor and may have possibly hit her head. Patient appeared to be lethargic and somewhat responsive following some commands and was noticed to have hypotension therefore emergency team was activated and responded to patient. Patient gradually had minimal improvement in her blood pressure and was taken for computed tomography scan of her brain which showed no acute brain abnormalities and also a chest x-ray that showed no active cardiopulmonary disease. Patient was then transferred to medical floor's for further evaluation and treatment. Mental status exam: General Appearance: Patient appeared to be thin/frail, older than stated age. Patient was lethargic and lying on the ground. Behavior: [Patient lying on the ground and minimally responsive.] Speech: Patient's speech is fluent and nonpressured. Soft tone. Mood/Affect: Unable to assess this patient is minimally responsive. Suicidality/Homicidality: Unable to assess this patient is minimally responsive. Perceptions: Unable to assess this patient is minimally responsive. Though content/process: Jessie and minimally responsive. Memory and concentration: AOX1 to person only, poor attention span. Judgment and insight: Guarded. Impression: Major depressive disorder, with psychotic features Anxiety disorder unspecified rule out obsessive-compulsive disorder Trichotillomania Plan: -Patient to be continued on Zoloft 150 mg daily for mood/anxiety along with BuSpar 15 mg twice a day for anxiety. Melatonin when necessary for sleep. - Due to patient's critical condition and hypotension, it was decided that patient should be transferred to the medical floor for evaluation and treatment. Computed tomography scan of brain was completed and showed no acute brain abnormalities and also chest x-ray showed no active cardiopulmonary disease. -Patient will be continued to be followed by video game script writer on the psychiatry consult service while patient was on the medical floors. Patient to be reevaluated for possible transfer in the future once patient is medically stabilized. -Continue with one-to-one sitter for safety. Patient Condition at Discharge: Serious Plan - Discharge Summary Discharge Rx Participant: No New Discharge Prescriptions: New Aspirin 325 mg PO DAILY tab Bacitracin Oint 1 applic TOPICAL BID applic Heparin Sodium,Porcine [Heparin Sodium] 0 unit IV PER PROTOCOL PRN vial PRN Reason: Low Ptt Atorvastatin [Lipitor] 40 mg PO HS tab Metoprolol Tartrate [Lopressor] 12.5 mg PO BID tab Multivitamins, Thera [Multivitamin (formulary)] 1 each PO DAILY tab Pantoprazole [Protonix] 40 mg PO AC-BRKFST tablet. Continue busPIRone HCl [Buspar] 15 mg PO BID tab Calamine/Zinc Oxide Lotion [Calamine Lotion] 1 applic TOPICAL TID PRN applic PRN Reason: Skin Irritation Melatonin 3 mg PO HS tablet Colloidal Oatmeal [Eucerin Eczema Relief] 1 applic TOPICAL QID PRN #30 gm PRN Reason: Dry Skin Sertraline HCl [Zoloft] 150 mg PO DAILY Discontinued Acetaminophen Tab [Tylenol] 650 mg PO Q6HR PRN tab PRN Reason: Mild Pain Or Fever > 100.5 Atorvastatin [Lipitor] 20 mg PO DAILY Discharge Medication List Calamine/Zinc Oxide Lotion [Calamine Lotion] 1 applic TOPICAL TID PRN applic 01/21/19 [Rx] Colloidal Oatmeal [Eucerin Eczema Relief] 1 applic TOPICAL QID PRN #30 gm 01/21/19 [Rx] Melatonin 3 mg PO HS tablet 01/21/19 [Rx] busPIRone HCl [Buspar] 15 mg PO BID tab 01/21/19 [Rx] Sertraline HCl [Zoloft] 150 mg PO DAILY 01/22/19 [History] Aspirin 325 mg PO DAILY tab 01/23/19 [Rx] Atorvastatin [Lipitor] 40 mg PO HS tab 01/23/19 [Rx] Bacitracin Oint 1 applic TOPICAL BID applic 01/23/19 [Rx] Heparin Sodium,Porcine [Heparin Sodium] 0 unit IV PER PROTOCOL PRN vial 01/23/19 [Rx] Metoprolol Tartrate [Lopressor] 12.5 mg PO BID tab 01/23/19 [Rx] Multivitamins, Thera [Multivitamin (formulary)] 1 each PO DAILY tab 01/23/19 [Rx] Pantoprazole [Protonix] 40 mg PO AC-BRKFST tablet. 01/23/19 [Rx] Activity/Diet/Wound Care/Special Instructions: patient has belongings in security Discharge Disposition: OTHER INSTITUTION NOT DEFINED Patient Condition at Discharge: Serious Plan - Discharge Summary New Discharge Prescriptions: No Action busPIRone HCl [Buspar] 15 mg PO BID tab Calamine/Zinc Oxide Lotion [Calamine Lotion] 1 applic TOPICAL TID PRN applic PRN Reason: Skin Irritation Melatonin 3 mg PO HS tablet Colloidal Oatmeal [Eucerin Eczema Relief] 1 applic TOPICAL QID PRN #30 gm PRN Reason: Dry Skin Sertraline HCl [Zoloft] 150 mg PO DAILY Aspirin 325 mg PO DAILY tab Bacitracin Oint 1 applic TOPICAL BID applic Heparin Sodium,Porcine [Heparin Sodium] 0 unit IV PER PROTOCOL PRN vial PRN Reason: Low Ptt Atorvastatin [Lipitor] 40 mg PO HS tab Metoprolol Tartrate [Lopressor] 12.5 mg PO BID tab Multivitamins, Thera [Multivitamin (formulary)] 1 each PO DAILY tab Pantoprazole [Protonix] 40 mg PO AC-BRKFST tablet. Discharge Medication List Calamine/Zinc Oxide Lotion [Calamine Lotion] 1 applic TOPICAL TID PRN applic 01/21/19 [Rx] Colloidal Oatmeal [Eucerin Eczema Relief] 1 applic TOPICAL QID PRN #30 gm 01/21/19 [Rx] Melatonin 3 mg PO HS tablet 01/21/19 [Rx] busPIRone HCl [Buspar] 15 mg PO BID tab 01/21/19 [Rx] Sertraline HCl [Zoloft] 150 mg PO DAILY 01/22/19 [History] Aspirin 325 mg PO DAILY tab 01/23/19 [Rx] Atorvastatin [Lipitor] 40 mg PO HS tab 01/23/19 [Rx] Bacitracin Oint 1 applic TOPICAL BID applic 01/23/19 [Rx] Heparin Sodium,Porcine [Heparin Sodium] 0 unit IV PER PROTOCOL PRN vial 01/23/19 [Rx] Metoprolol Tartrate [Lopressor] 12.5 mg PO BID tab 01/23/19 [Rx] Multivitamins, Thera [Multivitamin (formulary)] 1 each PO DAILY tab 01/23/19 [Rx] Pantoprazole [Protonix] 40 mg PO AC-BRKFST tablet. 01/23/19 [Rx] Discharge Disposition: ADMITTED IP TO THIS HOSP
== END 2019-01-22 15:39 | disposition short-term general hospital (02) | DRG 885 ==
LOC: 3MHU 20:14
PROVIDERS: ADMIT Psychiatry & Neurology Psychiatry; ATTEND Psychiatry & Neurology Psychiatry
DX: F32.3 Major depressive disorder, single episode, severe with psychotic features (principal); R45.851 Suicidal ideations; F41.9 Anxiety disorder, unspecified; I10 Essential (primary) hypertension; W18.30XA Fall on same level, unspecified, initial encounter; Z79.899 Other long term (current) drug therapy; Z81.8 Family history of other mental and behavioral disorders; Z85.3 Personal history of malignant neoplasm of breast; Z92.3 Personal history of irradiation; E78.5 Hyperlipidemia, unspecified; F63.3 Trichotillomania
CPT/HCPCS: 70450; 80053; 80061; 83036; 84443; 85025

== ENCOUNTER 2019-01-22 16:12 | Inpatient (IN) | payer BC, MEDICARE ==
[2019-01-22] MEDS ORDERED: MELATONIN 3 MG TABLET PO PRN (16:58)
[2019-01-22] MEDS ORDERED: ACETAMINOPHEN TAB 325 MG TAB PO PRN (16:58)
[2019-01-22] MEDS ORDERED: CALAMINE/ZINC OXIDE LOTION 177 ML BTL TOPICAL PRN (16:58)
[2019-01-22] MEDS ORDERED: MINERAL OIL-WHITE PETROLATUM 120 GM JAR TOPICAL PRN (16:58)
[2019-01-22] MEDS ORDERED: MAG HYDROX/AL HYDROX/SIMETH 30 ML CUP PO PRN (17:04)
[2019-01-22] MEDS ORDERED: MAGNESIUM HYDROXIDE 2,400 MG/10 ML CUP PO PRN (17:04)
[2019-01-22] MEDS ORDERED: LORazepam 1 MG TAB PO PRN (17:04)
[2019-01-22] MEDS ORDERED: ZIPRASIDONE 20 MG VIAL IM PRN (17:04)
[2019-01-22] MEDS ORDERED: SODIUM CHLORIDE 0.9% 1,000 ML IV ONE (17:09)
--- NOTE | 2019-01-22 18:23 | XR ---
EXAMINATION TYPE: XR chest 1V portable DATE OF EXAM: 01/22/2019 COMPARISON: 01/17/2019 HISTORY: Altered mental status TECHNIQUE: Single view FINDINGS: There is no heart failure nor confluent pneumonic infiltrate. There are chest leads. Costop hrenic angles are clear. Bony thorax is intact. IMPRESSION: No active cardiopulmonary disease. No change. Normal heart.
[2019-01-22] MEDS: SODIUM CHLORIDE 0.9% 1,000 ML IV SCH ×2 (19:02→20:30)
[2019-01-22] MEDS: HEPARIN SODIUM,PORCINE 5,000 UNIT/ML 1 ML VIAL SQ SCH (20:28)
[2019-01-22] MEDS: BACITRACIN 500 UNIT/GM OINT 28.4 GM TUBE TOPICAL SCH (20:28)
[2019-01-22] MEDS: busPIRone HCl 5 MG TAB PO SCH (21:52)
[2019-01-23] MEDS: SODIUM CHLORIDE 0.9% 1,000 ML IV SCH ×4 (05:50→19:15)
[2019-01-23] MEDS ORDERED: ATORVASTATIN 20 MG TAB PO SCH (09:00)
[2019-01-23] MEDS ORDERED: HEPARIN SODIUM,PORCINE 5,000 UNIT/ML 1 ML VIAL IV PRN (10:33)
[2019-01-23] MEDS ORDERED: HEPARIN SODIUM,PORCINE 10,000 UNIT/ML 1 ML VIAL IV ONE (10:33)
[2019-01-23] MEDS ORDERED: ASPIRIN 325 MG TAB PO SCH (10:45)
[2019-01-23] MEDS: HEPARIN SOD,PORK IN 0.45% NACL 25,000 UNIT in 0.45% NACL 1 250ML.BAG IV SCH (11:14)
[2019-01-23 11:17] LABS: ALT 15 U/L (4-34); AST 23 U/L (14-36); African American GFR (CKD) >90 (>60 ml/min/1.73 sqM); Alkaline Phosphatase 53 U/L (38-126); Anion Gap 7 mmol/L; Blood Urea Nitrogen 9 mg/dL (7-17); Carbon Dioxide 24 mmol/L (22-30); Chloride 109 mmol/L (98-107); Glucose 91 mg/dL (74-99); Non-African American GFR(CKD) >90 (>60 ml/min/1.73 sqM); Potassium 2.8 mmol/L (3.5-5.1); Sodium 140 mmol/L (137-145); Total Bilirubin 0.5 mg/dL (0.2-1.3); Total Protein 5.6 g/dL (6.3-8.2)
[2019-01-23] MEDS: BACITRACIN 500 UNIT/GM OINT 28.4 GM TUBE TOPICAL SCH ×2 (11:18→20:54)
[2019-01-23] MEDS: PANTOPRAZOLE 40 MG TABLET PO SCH (11:18)
[2019-01-23] MEDS: MULTIVITAMINS, THERA 1 EACH TAB PO SCH (11:19)
[2019-01-23] MEDS: busPIRone HCl 5 MG TAB PO SCH ×2 (11:19→20:48)
[2019-01-23] MEDS: SERTRALINE 50 MG TAB PO SCH (11:19)
[2019-01-23 11:25] LABS: Partial Thromboplastin Time 25.1 sec (22.0-30.0); Prothrombin Time 10.5 sec (9.0-12.0)
[2019-01-23 11:37] LABS: Basophils % (A) 0 %; Eosinophils % (A) 1 %; HCT 35.1 % (34.0-46.0); HGB 11.9 gm/dL (11.4-16.0); Lymphocytes # (A) 1.7 k/uL (1.0-4.8); Lymphocytes % (A) 30 %; MCH 30.7 pg (25.0-35.0); Mean Platelet Volume 7.7; Monocytes # (A) 0.4 k/uL (0-1.0); Monocytes % (A) 7 %; Neutrophils # (A) 3.5 k/uL (1.3-7.7); Neutrophils % (A) 61 %; Platelet Count 240 k/uL (150-450); RDW 12.8 % (11.5-15.5); WBC 5.8 k/uL (3.8-10.6)
--- NOTE | 2019-01-23 12:12 | P.DS ---
Providers Date of admission: 01/22/19 16:12 Expected date of discharge: 01/22/19 Attending physician: Renu Lundberg Consults: 01/22/19 16:29 Consult Physician Routine Consulting Provider: Dong Melendez Consult Reason/Comments: major depression,anxiety Do you want consulting provider notified?: Yes 01/23/19 08:54 Consult Physician Routine Consulting Provider: Al Hardin Consult Reason/Comments: elevated troponin Do you want consulting provider notified?: Yes Primary care physician: Renu Lundberg - Discharge Diagnosis(es) (1) Anxiety disorder Current Visit: Yes Status: Acute Priority: Medium (2) Major depressive disorder with psychotic features Current Visit: Yes Status: Acute Priority: High Hospital Course: Admission HPI: Patient is a 68-year-old female currently lives in a house alone has 1 son and 2 grandkids and is retired currently. Patient presented to the hospital into the emergency department with altered mental status and paranoia along with an increase in her anxiety and depression. The ER report claimed that the patient's son found that the patient was paranoid about her food and thought that stool was in it and was also not taking her medications at home. Patient was transferred from the ER to observation for altered mental status with UTI and was treated with Macrobid. Patient was transferred from observations to mental health inpatient yesterday after being cleared by psychiatry CL. Patient today was standing near the nurse's desk nearly the home morning and appeared to have multiple skin lesions over her head and face near her lips and also pending short hair and also appeared to be frail. Patient was agreeable to speak with the junior underwriter and appeared to be fairly anxious during the interview process. Patient asked several questions to junior underwriter about what he was thinking about her and was catastrophizing and had all or none thinking about her condition and her hospital stay. Patient asked repeatedly to be discharged and states that she does not need to be in the hospital and had poor insight about her medications and her condition. Patient did state that she has been experiencing high levels of anxiety and depression has even been picking at her face when her anxiety is elevated and also been plucking her hair. 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 Patient was recently discharged from the mental health unit on November 2018 after a 4 day stay and states that she was taking her Zoloft at home for the first week or 2 and then discontinued it. Patient endorsed having multiple stressors at home and worries about the children and grandchildren and her family. She states that she did not go back to work and her relationship with her boyfriend ended and patient continues to be preoccupied with her finances and believing that she does not have enough. Several times during the interview patient asked if she will be in the hospital "for eternity" and also believed that everybody had left the unit except for her. She claims that she has poor sleep and poor appetite and poor energy at this time. Difficulties with concentration. Patient denies any suicidal or active suicidal ideations however does claim that "sometimes he'll be better if I wasn't here" she denies any homicidal ideations intent or plan. At this time patient denies any visual hallucinations and states that she may hear voices at times but claims that it may be her thoughts. Patient denies any recreational drug use at this time and denies any alcohol or cigarette use. Hospital course: Upon admission to the unit patient was initially depressed and anxious and exhibiting paranoia. Patient was however directable and agreeable to commence treatment. Patient to occur morning medications and had stable vital signs in the morning. Patient was noticed by nursing staff to be laying down on the floor in the hallway an patient stated that she fell to the floor and may have possibly hit her head. Patient appeared to be lethargic and somewhat responsive following some commands and was noticed to have hypotension therefore emergency team was activated and responded to patient. Patient gradually had minimal improvement in her blood pressure and was taken for computed tomography scan of her brain which showed no acute brain abnormalities and also a chest x-ray that showed no active cardiopulmonary disease. Patient was then transferred to medical floor's for further evaluation and treatment. Mental status exam: General Appearance: Patient appeared to be thin/frail, older than stated age. Patient was lethargic and lying on the ground. Behavior: [Patient lying on the ground and minimally responsive.] Speech: Patient's speech is fluent and nonpressured. Soft tone. Mood/Affect: Unable to assess this patient is minimally responsive. Suicidality/Homicidality: Unable to assess this patient is minimally responsive. Perceptions: Unable to assess this patient is minimally responsive. Though content/process: [place] and minimally responsive. Memory and concentration: AOX1 to person only, poor attention span. Judgment and insight: Guarded. Impression: Major depressive disorder, with psychotic features Anxiety disorder unspecified rule out obsessive-compulsive disorder Trichotillomania Plan: -Patient to be continued on Zoloft 150 mg daily for mood/anxiety along with BuSpar 15 mg twice a day for anxiety. Melatonin when necessary for sleep. - Due to patient's critical condition and hypotension, it was decided that patient should be transferred to the medical floor for evaluation and treatment. Computed tomography scan of brain was completed and showed no acute brain ab normalities and also chest x-ray showed no active cardiopulmonary disease. -Patient will be continued to be followed by junior underwriter on the psychiatry consult service while patient was on the medical floors. Patient to be reevaluated for possible transfer in the future once patient is medically stabilized. -Continue with one-to-one sitter for safety. Patient Condition at Discharge: Serious Plan - Discharge Summary Discharge Rx Participant: No New Discharge Prescriptions: New Aspirin 325 mg PO DAILY tab Bacitracin Oint 1 applic TOPICAL BID applic Heparin Sodium,Porcine [Heparin Sodium] 0 unit IV PER PROTOCOL PRN vial PRN Reason: Low Ptt Atorvastatin [Lipitor] 40 mg PO HS tab Metoprolol Tartrate [Lopressor] 12.5 mg PO BID tab Multivitamins, Thera [Multivitamin (formulary)] 1 each PO DAILY tab Pantoprazole [Protonix] 40 mg PO AC-BRKFST tablet. Continue busPIRone HCl [Buspar] 15 mg PO BID tab Calamine/Zinc Oxide Lotion [Calamine Lotion] 1 applic TOPICAL TID PRN applic PRN Reason: Skin Irritation Melatonin 3 mg PO HS tablet Colloidal Oatmeal [Eucerin Eczema Relief] 1 applic TOPICAL QID PRN #30 gm PRN Reason: Dry Skin Sertraline HCl [Zoloft] 150 mg PO DAILY Discontinued Acetaminophen Tab [Tylenol] 650 mg PO Q6HR PRN tab PRN Reason: Mild Pain Or Fever > 100.5 Atorvastatin [Lipitor] 20 mg PO DAILY Discharge Medication List Calamine/Zinc Oxide Lotion [Calamine Lotion] 1 applic TOPICAL TID PRN applic 01/21/19 [Rx] Colloidal Oatmeal [Eucerin Eczema Relief] 1 applic TOPICAL QID PRN #30 gm 01/21/19 [Rx] Melatonin 3 mg PO HS tablet 01/21/19 [Rx] busPIRone HCl [Buspar] 15 mg PO BID tab 01/21/19 [Rx] Sertraline HCl [Zoloft] 150 mg PO DAILY 01/22/19 [History] Aspirin 325 mg PO DAILY tab 01/23/19 [Rx] Atorvastatin [Lipitor] 40 mg PO HS tab 01/23/19 [Rx] Bacitracin Oint 1 applic TOPICAL BID applic 01/23/19 [Rx] Heparin Sodium,Porcine [Heparin Sodium] 0 unit IV PER PROTOCOL PRN vial 01/23/19 [Rx] Metoprolol Tartrate [Lopressor] 12.5 mg PO BID tab 01/23/19 [Rx] Multivitamins, Thera [Multivitamin (formulary)] 1 each PO DAILY tab 01/23/19 [Rx] Pantoprazole [Protonix] 40 mg PO AC-BRKFST tablet. 01/23/19 [Rx] Activity/Diet/Wound Care/Special Instructions: patient has belongings in security Discharge Disposition: OTHER INSTITUTION NOT DEFINED
[2019-01-23] MEDS ORDERED: NITROGLYCERIN SL TABS 0.4 MG TAB SUBLINGUAL PRN (12:23)
--- NOTE | 2019-01-23 12:27 | P.CN ---
Psychiatric Consult - . Consult date: 01/23/19 Consult:: 01/23/19 12:18 IDENTIFYING DATA: This patient is a 68-year-old female who currently lives in her house alone has 1 son and 2 grandkids. Patient is retired. HISTORY OF PRESENT ILLNESS: Ms. Ennis presented to the emergency department with altered mental status and paranoia along with increase in anxiety/depression. As per ER report, patient's son stated that patient thought food was stool and was not taking her medications Zoloft. Patient was found to have a urinary tract infection in the ER and was admitted to observations. Patient was admitted to the mental health unit yesterday and after being seen in taking her morning medications patient claims that she felt "dizzy" and was seen later on by nursing staff laying down on the ground in the hallway. Patient was minimally responsive at that time and emergency team was activated to assess patient. Patient claims that she fell to the ground and may have hit her head. Patient's blood pressures were low at that time and due to concern of patient's medical status, patient was transferred to medical floors for evaluation and treatment. Patient was found to have a elevated troponin 3 and also elevated d-dimer. Patient was given fluids and blood pressure began recovering as of this morning. As per nurse taking care of patient states that patient has been cooperative however selectively has been taking her medications and did not take her Zoloft or BuSpar this morning. Nurse also clean the patient had shortness of breath and some chest pain earlier. Patient was seen at the bedside continues to feel anxious with poor sleep and endorsed paranoia, often catastrophize an with all or none thinking. She claims that she slept poorly last night and claims that she was unsure about her medications whether help or not. She continues to have poor insight and poor judgment. At this time patient denies any homical ideations, intent or plan. Has some passive suicidal ideations. Patient denies any auditory, visual hallucinations. PAST PSYCHIATRIC HISTORY: Patient was recently admitted to the mental health unit in November 2018. Patient has a history of anxiety and depression and was recently on Zoloft 100 mg daily plus BuSpar 50 mg twice a day which the patient was not taking at home. Patient states that she did go to follow-up with her therapist at [facility]. Patient has not been seeing a psychiatrist since discharge previously. Patient denies any previous history of suicide attempts. PAST MEDICAL HISTORY: Right sided breast cancer status post radiation treatment, [place], hypertension, osteoarthritis. ALLERGIES: as per EMR. CHEMICAL DEPENDENCY HISTORY: Denies any recreational substance use at this time. Denies any alcohol or cigarettes. FAMILY PSYCHIATRIC/SUBSTANCE USE HISTORY: And that her mother suffered from de pression SOCIAL HISTORY: Patient claims that she was born and raised in [place] and completed high school and attended college for 2 years. 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 MENTAL STATUS EXAM: General Appearance: Patient appears to be thin/frail, older than stated age is alert and appears anxious and is superficial/guarded. Poor hygiene/grooming. Multiple open lesions over patient's lips and face. Behavior: Patient is anxiously lying in bed without any agitated behavior. Superficially cooperative. Speech: Patient's speech is fluent and nonpressured. Mood/Affect: Patient reports their mood is "depressed", affect is congruent Suicidality/Homicidality: Patient denies having any homicidal ideation intent or plan. Passive passive suicidal ideations. Perceptions: Patient denies any auditory or visual hallucinations. Though content/process: Thought process is linear and goal-directed. Paranoia about her food and medications. Memory and concentration: AOX3, grossly intact for the purposes of this session. Can spell "WORLD" backwards Judgment and insight: Poor IMPRESSIONS: Major Depression with psychotic features Anxiety disorder unspecified rule out obsessive-compulsive disorder Trichotillomania PLAN: -Delirium precautions recommended with patient including - avoiding use of narcotics and PATTERN CHANGER sedatives, limit anticholinergic medications when possible, frequent re-orientation, minimize use of restraints, open window shades during the day and close them at night -Would recommend the following medication changes/additions: Patient can continue on Zoloft 150 mg daily for anxiety/mood and BuSpar 15 mg twice a day for anxiety. Melatonin when necessary for sleep. - continue with 1:1 sitter for safety -Cannot leave AMA at this time. Patient will need a petition and certification if attempting to leave AMA. -Patient received a head CT which showed no brain abnormalities and also a chest x-ray that showed no acute cardiopulmonary processes. Patient did have an elevation in her troponins 3 along with elevated d-dimer. Encouraged patient to eat her meals and consuming fluids to maintain nutritional status. Cardiology has been consulted. Continue with medical management as per primary team. -Psychiatry will follow along. Assessment and Plan (1) Anxiety disorder Current Visit: Yes Status: Acute Priority: Medium Code(s): F41.9 - ANXIETY DISORDER, UNSPECIFIED SNOMED Code(s): 275272570 (2) Major depressive disorder with psychotic features Current Visit: Yes Status: Acute Priority: High Code(s): F32.3 - MAJOR DEPRESSV DISORD, SINGLE EPSD, SEVERE W PSYCH FEATURES SNOMED Code(s): 114476017
[2019-01-23] MEDS: HEPARIN SODIUM,PORCINE 5,000 UNIT/ML 1 ML VIAL SQ SCH (13:02)
[2019-01-23] MEDS: METOPROLOL TARTRATE 12.5 MG TAB PO SCH ×2 (13:03→20:50)
[2019-01-23] MEDS ORDERED: Potassium Replacement Protocol 1 EACH MISC MISCELLANE PRN (13:13)
--- NOTE | 2019-01-23 13:17 | ECHOF ---
Referral Reason:hypotension,chest pain MEASUREMENTS -------- HEIGHT: 177.8 cm WEIGHT: 54.4 kg BP: 117/64 RVIDd: 2.0 cm (< 3.3) IVSd: 1.0 cm (0.6 - 1.1) LVIDd: 3.8 cm (3.9 - 5.3) LVPWd: 1.0 cm (0.6 - 1.1) IVSs: 1.3 cm LVIDs: 2.7 cm LVPWs: 1.3 cm LA Diam: 2.6 cm (2.7 - 3.8) Ao Diam: 3.0 cm (2.0 - 3.7) AV Cusp: 1.8 cm (1.5 - 2.6) MV EXCURSION: 11.714 mm (> 18.000) MV EF SLOPE: 73 mm/s (70 - 150) EPSS: 0.3 cm MV E Farshad: 0.79 m/s MV DecT: 215 ms MV A Farshad: 1.04 m/s MV E/A Ratio: 0.76 FINDINGS -------- Sinus rhythm. This was a technically adequate study. The left ventricular size is normal. Left ventricular wall thickness is normal. Overall left vent ricular systolic function is normal with, an EF between 60 - 65 %. The right ventricle is normal in size. Normal LA size by volume 22+/-6 ml/m2. The right atrium is normal in size. Interatrial and interventricular septum intact. There is mild aortic valve sclerosis. There is trace mitral regurgitation. The tricuspid valve appears structurally normal. The pulmonic valve was not well visualized. The aortic root size is normal. There is no pericardial effusion. CONCLUSIONS -------- 1. Sinus rhythm. 2. This was a technically adequate study. 3. The left ventricular size is normal. 4. Left ventricular wall thickness is normal. 5. Overall left ventricular systolic function is normal with, an EF between 60 - 65 %. 6. The right ventricle is normal in size. 7. Normal LA size by volume 22+/-6 ml/m2. 8. The right atrium is normal in size. 9. Interatrial and interventricular septum intact. 10. There is mild aortic valve sclerosis. 11. There is trace mitral regurgitation. 12. The tricuspid valve appears structurally normal. 13. The pulmonic valve was not well visualized. 14. The aortic root size is normal. 15. There is no pericardial effusion. DIE CAST ENGINEER: Ramila Salazar RDCS
--- NOTE | 2019-01-23 13:22 | P.CRDCN ---
History of Present Illness History of present illness: HISTORY OF PRESENTING ILLNESS This is a pleasant 68-year-old female past medical history significant for hypertension, dyslipidemia, depression, anxiety, former nicotine dependence and history of right breast cancer status post lumpectomy and radiation. She does not follow in the office with a hearing aid repairer for any reason. We have been asked to see in consultation for elevated troponin. She initially came to the hospital on the weekend for a psychiatric evaluation. Per her son she had been extremely paranoid, hallucinating and not eating for the last 1 month. While on the mental health unit she was found on the ground in the [place] [address] Unclear if there was actual LOC. She had been incontinent and was not responding to staff. Blood pressure was 58/34 heart rate 67. An A-team was called and fluids were administered. She responded quite well. She is seen and examined on the medical floor sitting up in bed in no acute distress with sitter at the bedside. She states prior to passing out she felt dizzy, nauseated and short of breath. She denies chest pain or palpitations. She denies prior history of coronary artery disease and has never had a stress test or heart catheterization in the past. EKG's obtained reveal sinus mechanism with diffuse T-wave inversion in the pr ecordial leads and inferior ST depression. Compared to old EKG from November [address] changes are new. At that time the T-wave inversions were also present. Chest xray and brain CT obtained while on mental health unit were unremarkable. Laboratory data reviewed, d-dimer 0.7, WBC 5.8, hgb 11.9, plt 240, sodium 140, potassium 2.8, creatinine 0.6, GFR greatern than 90, troponin 0.058, 0.051 and 0.044. REVIEW OF SYSTEMS At the time of my exam: CONSTITUTIONAL: Denies fever or chills. CARDIOVASCULAR: Denies chest pain, shortness of breath, orthopnea, PND or palpitations. RESPIRATORY: Denies cough. GASTROINTESTINAL: Denies abdominal pain, diarrhea, constipation, nausea or vomiting. MUSCULOSKELETAL: Denies myalgias. NEUROLOGIC: Denies numbness, tingling or weakness. ENDOCRINE: Denies fatigue, weight change, polydipsia or polyurina. GENITOURINARY: Denies burning, hematuria or urgency with micturation. HEMATOLOGIC: Denies history of anemia or bleeding. PHYSICAL EXAMINATION Blood pressure 116/99 heart rate 93 afebrile and maintaining oxygen saturation on room air. CONSTITUTIONAL: No apparent distress. HEENT: Head is normocephalic. Pupils are equal, round. Sclerae anicteric. Mucous membranes of the mouth are moist. No JVD. No carotid bruit. CHEST EXAMINATION: Lungs are clear to auscultation. No chest wall tenderness is noted on palpation or with deep breathing. HEART EXAMINATION: Regular rate and rhythm. S1, S2 heard. No murmurs, gallops or rub. ABDOMEN: Soft, nontender. Positive bowel sounds. EXTREMITIES: 2+ peripheral pulses, no lower extremity edema and no calf tenderness. NEUROLOGIC EXAMINATION: Patient is awake, alert and oriented x3. ASSESSMENT Non-ST elevated myocardial infarction, troponin elevation and EKG changes Syncope Hypokalemia Hypertension Dyslipidemia Major depressive disorder with psychotic features Anxiety disorder Trichltillomania PLAN Continue heparin infusion. Obtain STAT V/Q scan to rule out PE given syncope, shortness of breath and d-dimer elevation. Echocardiogram has been obtained and will be reviewed. Recommend performing cardiac catheterization to assess for underlying coronary artery disease. I have discussed the risks, benefits and alternative therapies for the above-mentioned procedure and for both sedation/analgesia as well as necessary blood product administration, if indicated, as they pertain to this patient. The patient has indicated understanding and acceptance of the risks and procedures discussed. This was also discussed in great detail with her son, Valentin Ennis. She is agreeable to move forward with the above stated procedure. Replace potassium per protocol. Continue with IV hydration. Continue lopressor and atorvastatin as previously ordered. Repeat BMP and lipid panel in the morning. Thank you kindly for this consultation. Nurse Practitioner note has been reviewed, I agree with a documented findings and plan of care. Patient was seen and examined. Past Medical History Past Medical History: Cancer, Eye Disorder, GERD/Reflux, Hyperlipidemia, Hypert ension, Pneumonia Additional Past Medical History / Comment(s): R breast cancer with lumpectomy and radiation, osteopenia, vertigo at times, dry eyes bilaterally,hypotensive e pisode 01/22/19 History of Any Multi-Drug Resistant Organisms: None Reported Past Surgical History: Breast Surgery, Tonsillectomy Additional Past Surgical History / Comment(s): 1989 R breast excisional biopsy, benign cyst removed from R breast, 2017 R breast lumpectomy d/t cancer, D&C, cervical conization, colonoscopy Past Anesthesia/Blood Transfusion Reactions: No Reported Reaction Additional Past Anesthesia/Blood Transfusion Reaction / Comment(s): "Sensitivity to anesthesia" Past Psychological History: Anxiety, Depression Additional Psychological History / Comment(s): Pt resides at home with her son. 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 She is independent. She states she has hx of depression and anxiety but feels she is stable at this time with her depression. She had a recent admission 11/20/18 with severe major depressive disorder/generalized anxiety and suicidal ideation. Pt states she has had no suicidal thoughts or plans recently. Smoking Status: Former smoker Past Alcohol Use History: Occasional Additional Past Alcohol Use History / Comment(s): Patient was a smoker one pack per day and is unsure when she quit smoking. She drank a little alcohol in the past but none now. Past Drug Use History: None Reported - Past Family History Father Family Medical History: Cancer Additional Family Medical History / Comment(s): Father at age 74 from colon cancer. Mother Family Medical History: Deep Vein Thrombosis (DVT) Additional Family Medical History / Comment(s): Mother had back problems and scoliosis and at age 89. Brother(s) Additional Family Medical History / Comment(s): Patient has 1 brother with no major medical problems. Patient does not have any sisters. Patient has 1 son. Medications and Allergies Home Medications Medication Instructions Recorded Confirmed Type Calamine/Zinc Oxide Lotion 1 applic TOPICAL TID PRN applic 01/21/19 01/22/19 Rx [Calamine Lotion] Colloidal Oatmeal [Eucerin Eczema 1 applic TOPICAL QID PRN #30 gm 01/21/19 01/22/19 Rx Relief] Melatonin 3 mg PO HS tablet 01/21/19 01/22/19 Rx busPIRone HCl [Buspar] 15 mg PO BID tab 01/21/19 01/22/19 Rx Sertraline HCl [Zoloft] 150 mg PO DAILY 01/22/19 01/22/19 History Aspirin 325 mg PO DAILY tab 01/23/19 Rx Atorvastatin [Lipitor] 40 mg PO HS tab 01/23/19 Rx Bacitracin Oint 1 applic TOPICAL BID applic 01/23/19 Rx Heparin Sodium,Porcine [Heparin 0 unit IV PER PROTOCOL PRN vial 01/23/19 Rx Sodium] Metoprolol Tartrate [Lopressor] 12.5 mg PO BID tab 01/23/19 Rx Multivitamins, Thera [Multivitamin 1 each PO DAILY tab 01/23/19 Rx (formulary)] Pantoprazole [Protonix] 40 mg PO AC-BRKFST tablet. 01/23/19 Rx Allergies Allergy/AdvReac Type Severity Reaction Status Date / Time No Known Allergies Allergy Verified 01/20/19 14:08 Physical Exam Vitals: Vital Signs Temp Pulse Resp BP Pulse Ox 01/23/19 11:13 97.9 F 93 18 116/99 95 01/23/19 04:55 97.3 F L 67 16 117/64 98 01/22/19 20:48 98 F 71 16 93/51 97 01/22/19 18:23 98.8 F 73 18 100/57 97 Intake and Output 01/22/19 01/23/19 01/23/19 22:59 06:59 14:59 Intake Total 250 990 Balance 250 990 Intake: Intake, IV Titration 250 750 Amount Sodium Chloride 0.9% 1, 250 000 ml @ 125 mls/hr IV . Q8H [facility] Rx#:[id number] Sodium Chloride 0.9% 1, 750 000 ml @ 75 mls/hr IV . [id number] [facility] Rx#:[id number] Oral 240 Other: # Voids 3 Weight 54.522 kg 54.522 kg Results 01/23/19 10:51 01/23/19 10:51 Cardiac Enzymes 01/22/19 01/22/19 01/23/19 Range/Units 16:59 22:13 05:37 AST (14-36) U/L Troponin I 0.058 H* 0.051 H* 0.044 H* (0.000-0.034) ng/mL 01/23/19 Range/Units 10:51 AST 23 (14-36) U/L Troponin I (0.000-0.034) ng/mL Coagulation 01/23/19 Range/Units 10:51 PT 10.5 (9.0-12.0) sec APTT 25.1 (22.0-30.0) sec CBC 01/23/19 Range/Units 10:51 WBC 5.8 (3.8-10.6) k/uL RBC 3.90 (3.80-5.40) m/uL Hgb 11.9 (11.4-16.0) gm/dL Hct 35.1 (34.0-46.0) % Plt Count 240 (150-450) k/uL Comprehensive Metabolic Panel 01/23/19 Range/Units 10:51 Sodium 140 (137-145) mmol/L Potassium 2.8 L (3.5-5.1) mmol/L Chloride 109 H (98-107) mmol/L Carbon Dioxide 24 (22-30) mmol/L BUN 9 (7-17) mg/dL Creatinine 0.60 (0.52-1.04) mg/dL Glucose 91 (74-99) mg/dL Calcium 9.0 (8.4-10.2) mg/dL AST 23 (14-36) U/L ALT 15 (4-34) U/L Alkaline Phosphatase 53 (38-126) U/L Total Protein 5.6 L (6.3-8.2) g/dL Albumin 3.0 L (3.5-5.0) g/dL Current Medications Generic Name Dose Route Start Last Admin Trade Name Freq PRN Reason Stop Dose Admin Acetaminophen 650 mg 01/22/19 16:58 Tylenol Tab PO Q6HR PRN Mild Pain or Fever > 100.5 Al Hydroxide/Mg Hydroxide 30 ml 01/22/19 17:04 Maalox PO Q4HR PRN GI Upset Aspirin 81 mg 01/24/19 09:00 Aspirin PO DAILY [facility] Atorvastatin Calcium 40 mg 01/23/19 21:00 Lipitor PO HS MEI Bacitracin 1 applic 01/22/19 21:00 01/23/19 11:18 Bacitracin Oint TOPICAL 1 applic BID MEI Administration Buspirone HCl 15 mg 01/22/19 21:00 01/23/19 11:19 Buspar PO Not Given BID MEI Calamine 1 applic 01/22/19 16:58 Calamine Lotion TOPICAL TID PRN Skin Irritation Heparin Sodium (Porcine) 0 unit 01/23/19 10:33 Heparin IV PER PROTOCOL PRN Low PTT Protocol Sodium Chloride 1,000 mls @ 75 mls/hr 01/22/19 17:15 01/23/19 11:35 Saline 0.9% IV Not Given .[id number] MEI Sodium Chloride 1,000 mls @ 125 mls/hr 01/22/19 19:15 01/23/19 11:35 Saline 0.9% IV 125 mls/hr .Q8H EMI Administration Heparin Sodium/Sodium Chloride 250 mls @ 9.814 mls/hr 01/23/19 10:45 01/23/19 11:14 25,000 unit/ Sodium Chloride IV 18 units/kg/hr .Q24H MEI 9.814 mls/hr Administration Protocol 18 UNITS/KG/HR Lorazepam 1 mg 01/22/19 17:04 Ativan PO TID PRN Agitation or Acute Anxiety Magnesium Hydroxide 2,400 mg 01/22/19 17:04 Milk Of Magnesia PO DAILY PRN Constipation Melatonin 3 mg 01/22/19 16:58 Melatonin PO HS PRN Insomnia Metoprolol Tartrate 12.5 mg 01/23/19 10:45 Lopressor PO BID MEI Multi-Ingred Cream/Lotion/Oil/Oint 1 applic 01/22/19 16:58 Eucerin Cream TOPICAL QID PRN Dry Skin Multivitamins 1 each 01/23/19 09:00 01/23/19 11:19 Theragran PO 1 each DAILY MEI Administration Pantoprazole Sodium 40 mg 01/23/19 07:30 01/23/19 11:18 Protonix PO 40 mg AC-BRKFST MEI Administration Sertraline HCl 150 mg 01/23/19 09:00 01/23/19 11:19 Zoloft PO Not Given DAILY MEI Ziprasidone 20 mg 01/22/19 17:04 Geodon IM BID PRN Agitation or Acute Psychosis Intake and Output 01/22/19 01/23/19 01/23/19 22:59 06:59 14:59 Intake Total 250 990 Balance 250 990 Intake: Intake, IV Titration 250 750 Amount Sodium Chloride 0.9% 1, 250 000 ml @ 125 mls/hr IV . Q8H [facility] Rx#:[id number] Sodium Chloride 0.9% 1, 750 000 ml @ 75 mls/hr IV . [id number] [facility] Rx#:[id number] Oral 240 Other: # Voids 3 Weight 54.522 kg 54.522 kg Patient Weight 01/24/19 06:59 Weight 54.522 kg 01/23/19 10:51 12/13/19 10:51
--- NOTE | 2019-01-23 13:40 | P.HPIM ---
History of Present Illness H&P Date: 01/23/19 This is a 68-year-old female patient of Dr. Castañeda with past medical history of hypertension, hyperlipidemia, right-sided breast cancer status post lumpectomy and radiation therapy, osteopenia. The patient last saw Dr. Castañeda 2 weeks ago. Patient initially presented to the emergency center on January 17 for depression and son brought her in for concerns of paranoia and altered activity. Patient expressed that she was depressed and had some suicidal ideations and was psychotic. She has had poor hygiene and has been picking at her skin and pulling her hair. There was a statement that she thought the food she was eating was her son's stool. There are no alcohol or drug issues. Her son had completed a mental health petition. The patient has been on Zoloft but apparently has not been taking this. Patient was placed on the [facility] floor as an observation status while waiting for mental health bed. She has been seen in consultation by psychiatry and by Dr. Cano. Dr. Cano has recommended Macrodantin for 3 days for treatment of cystitis which she had already completed. Patient is cleared medically for transfer to the mental health unit and was followed medically by [facility]. Yesterday afternoon, patient had a syncopal episode while on the mental health unit. She was found to have a low blood pressure at the lowest of 52/26 and heart rate of 53. It was reported that she had loss of bowel and bladder control. A-Team was called. No head injury. CAT scan of the brain showed no acute findings. IV fluids and 500 mL bolus given. [facility] Lundberg insisting that the patient go to the cardiac stepdown unit. He ordered 2 L of IV fluids. CBC was within normal limits. Potassium 3.3, creatinine 1.33, blood sugar 173. Troponin 0.058, 0.051, 0.044. EKG has twave inversion and st depression. Patient started on heparin drip, Lopressor, full-strength aspirin until seen by cardiology. The patient is seen on the [facility] floor. She is complaining of a little chest pain on the right side of her chest. No shortness of breath. She denies any cardiac history and denies having been seen by dope mixer in the past. Patient has a sitter at the bedside per psychiatrist recommendations. Consult with cardiology and patient scheduled for heart catheterization tomorrow. Patient will be transferred to the cardiac stepdown unit. Review of Systems Constitutional: Reports poor appetite, Denies chills, Denies fatigue, Denies fever Eyes: denies blurred vision, denies pain Ears, nose, mouth and throat: Denies headache, Denies sore throat Cardiovascular: Mild right-sidedchest pain, Denies shortness of breath Respiratory: Denies cough Gastrointestinal: Denies abdominal pain, Denies diarrhea, Denies nausea, Denies vomiting Genitourinary: Denies dysuria, Denies hematuria Musculoskeletal: Denies myalgias Integumentary: Reports wounds, Denies pruritus, Denies rash Neurological: Denies numbness, Denies weakness Psychiatric: Reports anxiety, Reports confusion, Reports depression, Reports hallucinations Endocrine: Denies fatigue, Denies weight change Past Medical History Past Medical History: Cancer, Eye Disorder, GERD/Reflux, Hyperlipidemia, Hypertension, Pneumonia Additional Past Medical History / Comment(s): R breast cancer with lumpectomy and radiation, osteopenia, vertigo at times, dry eyes bilaterally,hypotensive episode 01/22/19 History of Any Multi-Drug Resistant Organisms: None Reported Past Surgical History: Breast Surgery, Tonsillectomy Additional Past Surgical History / Comment(s): 1989 R breast excisional biopsy, benign cyst removed from R breast, 2017 R breast lumpectomy d/t cancer, D&C, cervical conization, colonoscopy Past Anesthesia/Blood Transfusion Reactions: No Reported Reaction Additional Past Anesthesia/Blood Transfusion Reaction / Comment(s): "Sensitivity to anesthesia" Past Psychological History: Anxiety, Depression Additional Psychological History / Comment(s): Pt resides at home with her son. 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 She is independent. She states she has hx of depression and anxiety but feels she is stable at this time with her depression. She had a recent admission 11/20/18 with severe major depressive disorder/generalized anxiety and suicidal ideation. Pt states she has had no suicidal thoughts or plans recently. Smoking Status: Former smoker Past Alcohol Use History: Occasional Additional Past Alcohol Use History / Comment(s): Patient was a smoker one pack per day and is unsure when she quit smoking. She drank a little alcohol in the past but none now. Past Drug Use History: None Reported - Past Family History Father Family Medical History: Cancer Additional Family Medical History / Comment(s): Father at age 74 from colon cancer. Mother Family Medical History: Deep Vein Thrombosis (DVT) Additional Family Medical History / Comment(s): Mother had back problems and scoliosis and at age 89. Brother(s) Additional Family Medical History / Comment(s): Patient has 1 brother with no major medical problems. Patient does not have any sisters. Patient has 1 son. Medications and Allergies Home Medications Medication Instructions Recorded Confirmed Type Calamine/Zinc Oxide Lotion 1 applic TOPICAL TID PRN applic 01/21/19 01/22/19 Rx [Calamine Lotion] Colloidal Oatmeal [Eucerin Eczema 1 applic TOPICAL QID PRN #30 gm 01/21/19 01/22/19 Rx Relief] Melatonin 3 mg PO HS tablet 01/21/19 01/22/19 Rx busPIRone HCl [Buspar] 15 mg PO BID tab 01/21/19 01/22/19 Rx Sertraline HCl [Zoloft] 150 mg PO DAILY 01/22/19 01/22/19 History Aspirin 325 mg PO DAILY tab 01/23/19 Rx Atorvastatin [Lipitor] 40 mg PO HS tab 01/23/19 Rx Bacitracin Oint 1 applic TOPICAL BID applic 01/23/19 Rx Heparin Sodium,Porcine [Heparin 0 unit IV PER PROTOCOL PRN vial 01/23/19 Rx Sodium] Metoprolol Tartrate [Lopressor] 12.5 mg PO BID tab 01/23/19 Rx Multivitamins, Thera [Multivitamin 1 each PO DAILY tab 01/23/19 Rx (formulary)] Pantoprazole [Protonix] 40 mg PO AC-BRKFST tablet. 01/23/19 Rx Allergies Allergy/AdvReac Type Severity Reaction Status Date / Time No Known Allergies Allergy Verified 01/20/19 14:08 Physical Exam Vitals: Vital Signs Temp Pulse Resp BP Pulse Ox 01/23/19 04:55 97.3 F L 67 16 117/64 98 01/22/19 20:48 98 F 71 16 93/51 97 01/22/19 18:23 98.8 F 73 18 100/57 97 Intake and Output 01/22/19 01/23/19 01/23/19 22:59 06:59 14:59 Intake Total 250 990 Balance 250 990 Intake: Intake, IV Titration 250 750 Amount Sodium Chloride 0.9% 1, 250 000 ml @ 125 mls/hr IV . Q8H [facility] Rx#:[id number] Sodium Chloride 0.9% 1, 750 000 ml @ 75 mls/hr IV . [id number] [facility] Rx#:[id number] Oral 240 Other: # Voids 3 Weight 54.522 kg Gen: This is a thin 68-year-old female. Patient is in bed and appears to be comfortable. No acute distress noted. HEENT: Head is atraumatic, normocephalic. Pupils equal, round. Sclerae is anicteric. Patient has multiple skin lesions on her right lip and face along with patchy hair loss. NECK: Supple. No JVD. No lymphadenopathy. No thyromegaly. LUNGS: Clear to auscultation. No wheezes or rhonchi. No intercostal retrac tions. HEART: Regular rate and rhythm. No murmur. ABDOMEN: Soft. Bowel sounds are present. No masses. No tenderness. EXTREMITIES: No pedal edema. No calf tenderness. Dorsalis pedis +2 bilaterally. NEUROLOGICAL: Patient is awake, alert and oriented x3. Cranial nerves 2 through 12 are grossly intact. Results CBC & Chem 7: 01/23/19 10:51 01/23/19 10:51 Labs: Abnormal Lab Results - Last 24 Hours (Table) 01/22/19 01/22/19 01/22/19 Range/Units 16:59 16:59 22:13 D-Dimer 0.70 H (<0.60) mg/L FEU Troponin I 0.058 H* 0.051 H* (0.000-0.034) ng/mL 01/23/19 Range/Units 05:37 D-Dimer (<0.60) mg/L FEU Troponin I 0.044 H* (0.000-0.034) ng/mL Thrombosis Risk Factor Assmnt - DVT/VTE Prophylaxis DVT/VTE Prophylaxis: Pharmacologic Prophylaxis ordered - Choose All That Apply Any of the Below Risk Factors Present?: Yes Other Risk Factors: Yes Each Risk Factor Represents 2 Points: Age 61-74 years Each Risk Factor Represents 3 Points: Family history of DVT/PE Other congenital or acquired thrombophilia - If yes, enter type in comment: No Thrombosis Risk Factor Assessment Total Risk Factor Score: 5 Thrombosis Risk Factor Assessment Level: High Risk Assessment and Plan Plan: 1. Syncopal episode with hypotension. Patient is status post IV fluid resuscitation. Continue to monitor blood pressure closely. 2. Possible non-ST elevated myocardial infarction. Cardiology consult appreciated. Continue heparin drip, Lopressor 12.5 mg twice daily, heart catheterization tomorrow with Dr. Hardin. 3. Recurrent depression with psychotic features. Continue Zoloft 100 mg daily, BuSpar 50 mg twice daily. Patient will need to be transferred back to the mental health unit once medically stable. Psychiatric consult. Continue sitter at the bedside. 4. Generalized anxiety disorder. Continue BuSpar. 5. Cystitis status post completion of antibiotic treatment. 6. Neurodermatitis. Calamine lotion. 7. Hyperlipidemia. Continue Lipitor. 8. Hypertension. Hold losartan 100 mg daily. 9. Hypokalemia. Replacement. 10. DVT prophylaxis. Heparin. 11. GI prophylaxis Patient admitted for a minimum of 2 night stay. Discharge plan: Return to the [facility] Impression and plan of care have been directed as dictated by the signing physician. Rosaura Mack nurse practitioner acting as scribe for signing physician.
[2019-01-23] MEDS ORDERED: ASPIRIN 81 MG PO SCH (14:15)
[2019-01-23] MEDS: POTASSIUM CHLORIDE ER 20 MEQ TAB.ER PO SCH ×2 (14:33→14:34)
--- NOTE | 2019-01-23 16:31 | NM ---
EXAMINATION TYPE: NM pul vent and perfuse DATE OF EXAM: 01/23/2019 COMPARISON: 01/22/2019 chest x-ray HISTORY: Chest pain TECHNIQUE: Utilizing inhalation of 65.9 mCi Tc 99m DTPA aerosol and intravenous injection of 5.1 mCi of Tc 99m MAA, ventilation and perfusion images are acquired post injection in multiple projections. FINDINGS: Small perfusion defect is at the posterior left lung base with better aeration in lesion. Small later al left lung perfusion defect appears matched with ventilation defect. No moderate or large mismatche d defects are evident. No triple matched defect is evident. IMPRESSION: Low probability for pulmonary embolism based on PIOPED 2 criteria.
[2019-01-23] MEDS: ATORVASTATIN 40 MG TAB PO SCH (20:48)
[2019-01-24] MEDS: SODIUM CHLORIDE 0.9% 1,000 ML IV SCH ×4 (04:03→12:29)
[2019-01-24] MEDS ORDERED: ASPIRIN 325 MG TAB PO ONE (06:00)
[2019-01-24 06:20] LABS: Basophils % (A) 1 %; Eosinophils # (A) 0.1 k/uL (0-0.7); Eosinophils % (A) 1 %; HCT 33.8 % (34.0-46.0); HGB 11.1 gm/dL (11.4-16.0); Lymphocytes # (A) 1.8 k/uL (1.0-4.8); Lymphocytes % (A) 36 %; MCH 29.3 pg (25.0-35.0); MCV 88.7 fL (80.0-100.0); Mean Platelet Volume 7.6; Monocytes # (A) 0.3 k/uL (0-1.0); Monocytes % (A) 6 %; Neutrophils # (A) 2.7 k/uL (1.3-7.7); Neutrophils % (A) 54 %; Platelet Count 220 k/uL (150-450); RBC 3.81 m/uL (3.80-5.40); RDW 12.8 % (11.5-15.5); WBC 4.9 k/uL (3.8-10.6)
[2019-01-24 06:32] LABS: African American GFR (CKD) >90 (>60 ml/min/1.73 sqM); Anion Gap 5 mmol/L; Blood Urea Nitrogen 7 mg/dL (7-17); Calcium 8.8 mg/dL (8.4-10.2); Carbon Dioxide 26 mmol/L (22-30); Chloride 110 mmol/L (98-107); Cholesterol 110 mg/dL (<200); Glucose 89 mg/dL (74-99); HDL Cholesterol 27 mg/dL (40-60); LDL Cholesterol,Calculated 60 mg/dL (0-99); Non-African American GFR(CKD) >90 (>60 ml/min/1.73 sqM); Potassium 3.3 mmol/L (3.5-5.1); Sodium 141 mmol/L (137-145); Triglycerides 117 mg/dL (<150)
[2019-01-24] MEDS: PANTOPRAZOLE 40 MG TABLET PO SCH (06:34)
--- NOTE | 2019-01-24 08:18 | P.PN ---
Subjective Progress Note Date: 01/24/19 This is a 68-year-old female patient of Dr. Castañeda with past medical history of hypertension, hyperlipidemia, right-sided breast cancer status post lumpectomy and radiation therapy, osteopenia. The patient last saw Dr. Castañeda 2 weeks ago. Patient initially presented to the emergency center on January 17 for depression and son brought her in for concerns of paranoia and altered activity. Patient expressed that she was depressed and had some suicidal ideations and was psychotic. She has had poor hygiene and has been picking at her skin and pulling her hair. There was a statement that she thought the food she was eating was her son's stool. There are no alcohol or drug issues. Her son had completed a mental health petition. The patient has been on Zoloft but apparently has not been taking this. Patient was placed on the [facility] floor as an observation status while waiting for mental health bed. She has been seen in consultation by psychiatry and by Dr. Cano. Dr. Cano has recommended Macrodantin for 3 days for treatment of cystitis which she had already completed. Patient is cleared medically for transfer to the mental health unit and was followed medically by [facility]. Yesterday afternoon, patient had a syncopal episode while on the mental health unit. She was found to have a low blood pressure at the lowest of 52/26 and heart rate of 53. It was reported that she had loss of bowel and bladder control. A-Team was called. No head injury. CAT scan of the brain showed no acute findings. IV fluids and 500 mL bolus given. [facility] Dr. Lundberg insisting that the patient go to the cardiac stepdown unit. He ordered 2 L of IV fluids. CBC was within normal limits. Potassium 3.3, creatinine 1.33, blood sugar 173. Troponin 0.058, 0.051, 0.044. EKG has twave inversion and st depression. Patient started on heparin drip, Lopressor, full-strength aspirin until seen by cardiology. The patient is seen on the MedSurg floor. She is complaining of a little chest pain on the right side of her chest. No shortness of breath. She denies any cardiac history and denies having been seen by chassis driver in the past. Patient has a sitter at the bedside per psychiatrist recommendations. Consult with cardiology and patient scheduled for heart catheterization tomorrow. Patient will be transferred to the cardiac stepdown unit. 01/24: patient is sitting up in bed awaiting heart cath this morning. Patient is extremely paranoid and reluctant to have heart cath done. Patient feels that medications that are being given for trying to stop her heart. Reassured patient that the medications are to help her heart. Patient has multiple ulcerations to lips and top of head from picking and scratching. Patient's potassium was 3.3 this morning. Patient has not had any further episodes of syncope. Sitter is at the bedside. Patient has been hemodynamically stable. Review of Systems Constitutional: Reports poor appetite, Denies chills, Denies fatigue, Denies fever Eyes: denies blurred vision, denies pain Ears, nose, mouth and throat: Denies headache, Denies sore throat Cardiovascular: Mild right-sidedchest pain, Denies shortness of breath Respiratory: Denies cough Gastrointestinal: Denies abdominal pain, Denies diarrhea, Denies nausea, Denies vomiting Genitourinary: Denies dysuria, Denies hematuria Musculoskeletal: Denies myalgias Integumentary: Reports wounds, Denies pruritus, Denies rash Neurological: Denies numbness, Denies weakness Psychiatric: Reports anxiety, Reports confusion, Reports depression, Reports hallucinations, reports paranoia Endocrine: Denies fatigue, Denies weight change Objective - Vital Signs Vital signs: Vital Signs Temp 98 F 01/24/19 03:51 Pulse 76 01/24/19 03:51 Resp 18 01/24/19 03:51 BP 131/61 01/24/19 03:51 Pulse Ox 94 L 01/24/19 03:51 Intake & Output 01/23/19 01/24/19 01/24/19 18:59 06:59 18:59 Intake Total 70.007 56.019 Balance 70.007 56.019 Weight 54.522 kg Intake: Intake, IV Titration 70.007 56.019 Amount Heparin Sod,Pork in 0.45% 70.007 56.019 NaCl 25,000 unit In 0.45 % NaCl 1 250ml.bag @ 18 UNITS/KG/HR 9.814 mls/hr IV .Q24H [facility] Rx#: [id number] Other: Voiding Method Toilet Toilet # Voids 1 - Exam Gen: This is a thin 68-year-old female. Patient is in bed and appears to be comfortable. No acute distress noted. HEENT: Head is atraumatic, normocephalic. Pupils equal, round. Sclerae is anicteric. Patient has multiple skin lesions on her right lip and face along with patchy hair loss. NECK: Supple. No JVD. No lymphadenopathy. No thyromegaly. LUNGS: Clear to auscultation. No wheezes or rhonchi. No intercostal retractions. HEART: Regular rate and rhythm. No murmur. ABDOMEN: Soft. Bowel sounds are present. No masses. No tenderness. EXTREMITIES: No pedal edema. No calf tenderness. Dorsalis pedis +2 bilaterally. skin: Multiple ulcerations to lips and scalp in various states of healing Limited to skin breakdown NEUROLOGICAL: Patient is awake, alert and oriented x3. Cranial nerves 2 through 12 are grossly intact. - Labs CBC & Chem 7: 01/24/19 05:33 01/24/19 05:33 Labs: Abnormal Lab Results - Last 24 Hours (Table) 01/23/19 01/23/19 01/24/19 Range/Units 10:51 17:24 05:33 Hgb 11.1 L (11.4-16.0) gm/dL Hct 33.8 L (34.0-46.0) % APTT 108.1 H* (22.0-30.0) sec Potassium 2.8 L (3.5-5.1) mmol/L Chloride 109 H (98-107) mmol/L Total Protein 5.6 L (6.3-8.2) g/dL Albumin 3.0 L (3.5-5.0) g/dL HDL Cholesterol (40-60) mg/dL 01/24/19 Range/Units 05:33 Hgb (11.4-16.0) gm/dL Hct (34.0-46.0) % APTT (22.0-30.0) sec Potassium 3.3 L (3.5-5.1) mmol/L Chloride 110 H (98-107) mmol/L Total Protein (6.3-8.2) g/dL Albumin (3.5-5.0) g/dL HDL Cholesterol 27 L (40-60) mg/dL Assessment and Plan Plan: 1. Syncopal episode with hypotension. IV to 75 ML per hour Continue to monitor blood pressure closely. 2. Possible non-ST elevated myocardial infarction. Cardiology consult appreciated. Continue heparin drip, Lopressor 12.5 mg twice daily, heart catheterization today with Dr. Hardin. 3. Recurrent depression with psychotic features. Continue Zoloft 150 mg daily, BuSpar 15 mg twice daily. psychiatric consult appreciated. Continue sitter at the bedside. 4. Generalized anxiety disorder. Continue BuSpar. 5. Cystitis status post completion of antibiotic treatment. 6. Neurodermatitis. Calamine lotion. bacitracin applied to site 7. Hyperlipidemia. Continue Lipitor. 8. Hypertension. Hold losartan 100 mg daily. metoprolol 12.5 mg twice a day 9. Hypokalemia. potassium replacement protocol. 10. DVT prophylaxis. Heparin. 11. GI prophylaxis Protonix 40 mg by mouth Patient admitted for a minimum of 2 night stay. Discharge plan: Return to the MHU Impression and plan of care have been directed as dictated by the signing physician. Kristy Whittaker nurse practitioner acting as scribe for signing physician. Additional CC's: Gamaliel Castañeda
[2019-01-24] MEDS: BACITRACIN 500 UNIT/GM OINT 28.4 GM TUBE TOPICAL SCH ×2 (08:58→20:30)
[2019-01-24] MEDS: SERTRALINE 50 MG TAB PO SCH (08:58)
[2019-01-24] MEDS: METOPROLOL TARTRATE 12.5 MG TAB PO SCH ×2 (08:58→20:34)
[2019-01-24] MEDS: busPIRone HCl 5 MG TAB PO SCH ×2 (08:58→20:31)
[2019-01-24] MEDS: MULTIVITAMINS, THERA 1 EACH TAB PO SCH (08:58)
[2019-01-24] MEDS ORDERED: ASPIRIN 81 MG PO SCH (09:00)
[2019-01-24] MEDS ORDERED: Potassium Replacement Protocol 1 EACH MISC MISCELLANE PRN (09:06)
[2019-01-24] MEDS ORDERED: IV FLUID CONTINUATION 1,000 ML IV ONE (10:23)
[2019-01-24] MEDS: POTASSIUM CHLORIDE ER 20 MEQ TAB.ER PO SCH ×2 (10:25→12:29)
[2019-01-24] MEDS ORDERED: VERAPAMIL 2.5 MG/ML 2 ML AMP ONE (10:25)
[2019-01-24] MEDS ORDERED: LIDOCAINE 1% INJ 10MG/ML (20 ML MDV) ONE (10:25)
[2019-01-24] MEDS ORDERED: HEPARIN SODIUM 1,000 UN/ML (10ML VL) ONE (10:26)
[2019-01-24] MEDS ORDERED: MIDAZOLAM 2 MG/2 ML VIAL IV ONE (10:47)
[2019-01-24] MEDS ORDERED: LIDOCAINE 1% INJ 10MG/ML (20 ML MDV) SQ ONE (10:48)
[2019-01-24] MEDS: VERAPAMIL SYRINGE (5 MG/10 ML) INTRAARTER ONE ×3 (10:49→10:58)
[2019-01-24] MEDS ORDERED: HEPARIN SODIUM 1,000 UN/ML (10ML VL) IV ONE (10:50)
[2019-01-24] MEDS ORDERED: IOPAMIDOL-370 125ML BTL INJ ONE (10:55)
[2019-01-24] MEDS ORDERED: RX INFO: IV CONTRAST WAS GIVEN 1 EACH MISC MISCELLANE PRN (10:59)
[2019-01-24] MEDS ORDERED: SODIUM CHLORIDE 0.9% 1,000 ML IV SCH (11:00)
[2019-01-24] MEDS: HEPARIN SOD,PORK IN 0.45% NACL 25,000 UNIT in 0.45% NACL 1 250ML.BAG IV SCH (11:52)
--- NOTE | 2019-01-24 12:11 | CC ---
CARDIAC CATHETERIZATION REPORT DATE OF SERVICE: January 24, 2019 PERFORMING PHYSICIAN: Al Hardin M.D. PROCEDURE PERFORMED: 1. Selective right and left coronary angiogram. 2. Left heart catheterization. INDICATION: This is a 68-year-old female patient with history of hypertension and dyslipidemia who was experiencing chest discomfort and ruled in for acute [id number] myocardial infarction. The decision was made towards heart catheterization to rule out severe CAD. APPROACH: Right radial artery. COMPLICATION: None. LEVEL OF SEDATION: Moderate. Sedation length of 11 minutes. PROCEDURE DESCRIPTION: After obtaining an informed consent, the patient was brought to the cardiac record label intern. The right radial artery was cannulated using micropuncture technique, the micropuncture wire passed easily. Then I placed a 5-Occitan sheath. I did after that selective right and left coronary angiogram using JR4 and JL3.5 catheters. Left heart catheterization was performed using 5-Occitan JR4 which crossed the aortic valve. Then I did pullback across the valve. Please note that the patient was given 6000 units of heparin IV before the catheter was inserted. SELECTIVE CORONARY ANGIOGRAM: 1. The right coronary artery is a large caliber vessel. It is a dominant vessel, appeared to be angiographically normal. Distally bifurcates into PDA and PLV branches, both are angiographically normal. 2. The left main is a long left main but angiographically normal. It bifurcates into LCX and LAD. 3. The LCX is a large caliber vessel. It is a nondominant vessel and appeared to be angiographically normal. It gives rise into the first and second obtuse marginal branches, both appeared to be angiographically normal. 4. The LAD: the proximal LAD appeared to be normal. The mid LAD after the first diagonal branch has a lesion appeared to be in the range of 10% only. The LAD distally appeared to be normal. HEMODYNAMICS: The LVEDP was 6 mmHg without significant gradient across aortic valve. CONCLUSION: 1. Normal coronary angiogram. Normal left ventricular end-diastolic pressure. POSTPROCEDURE MANAGEMENT: 1. Medical treatment. 2. Follow up with the patient. JESSICA / XENAN: [id number] /
[2019-01-24] MEDS: ATORVASTATIN 40 MG TAB PO SCH (20:34)
[2019-01-25 06:12] LABS: Basophils % (A) 0 %; Eosinophils # (A) 0.1 k/uL (0-0.7); Eosinophils % (A) 1 %; HCT 32.8 % (34.0-46.0); HGB 11.1 gm/dL (11.4-16.0); Lymphocytes # (A) 1.8 k/uL (1.0-4.8); Lymphocytes % (A) 27 %; MCH 30.3 pg (25.0-35.0); MCHC 33.8 g/dL (31.0-37.0); MCV 89.6 fL (80.0-100.0); Mean Platelet Volume 7.8; Monocytes # (A) 0.4 k/uL (0-1.0); Monocytes % (A) 6 %; Neutrophils # (A) 4.3 k/uL (1.3-7.7); Neutrophils % (A) 64 %; Platelet Count 225 k/uL (150-450); RBC 3.66 m/uL (3.80-5.40); RDW 12.8 % (11.5-15.5); WBC 6.7 k/uL (3.8-10.6)
[2019-01-25] MEDS: PANTOPRAZOLE 40 MG TABLET PO SCH (06:16)
[2019-01-25 06:30] LABS: African American GFR (CKD) >90 (>60 ml/min/1.73 sqM); Anion Gap 6 mmol/L; Blood Urea Nitrogen 7 mg/dL (7-17); Carbon Dioxide 24 mmol/L (22-30); Chloride 109 mmol/L (98-107); Glucose 87 mg/dL (74-99); Non-African American GFR(CKD) >90 (>60 ml/min/1.73 sqM); Potassium 3.6 mmol/L (3.5-5.1); Sodium 139 mmol/L (137-145)
[2019-01-25] MEDS ORDERED: ASPIRIN 81 MG PO SCH (09:00)
[2019-01-25] MEDS: busPIRone HCl 5 MG TAB PO SCH ×2 (09:07→19:57)
[2019-01-25] MEDS: ASPIRIN 81 MG PO SCH (09:07)
[2019-01-25] MEDS: BACITRACIN 500 UNIT/GM OINT 28.4 GM TUBE TOPICAL SCH ×2 (09:07→19:56)
[2019-01-25] MEDS: SERTRALINE 50 MG TAB PO SCH (09:08)
[2019-01-25] MEDS: METOPROLOL TARTRATE 12.5 MG TAB PO SCH ×2 (09:08→19:57)
[2019-01-25] MEDS: MULTIVITAMINS, THERA 1 EACH TAB PO SCH (09:10)
[2019-01-25] MEDS: HEPARIN SOD,PORK IN 0.45% NACL 25,000 UNIT in 0.45% NACL 1 250ML.BAG IV SCH (09:32)
[2019-01-25] MEDS: SODIUM CHLORIDE 0.9% 1,000 ML IV SCH ×3 (09:32→20:01)
[2019-01-25] MEDS ORDERED: SODIUM CHLORIDE 0.9% 500 ML 500 ML IV ONE (10:15)
--- NOTE | 2019-01-25 10:24 | P.PN ---
Subjective Progress Note Date: 01/25/19 This is a 68-year-old female patient of Dr. Castañeda with past medical history of hypertension, hyperlipidemia, right-sided breast cancer status post lumpectomy and radiation therapy, osteopenia. The patient last saw Dr. Castañeda 2 weeks ago. Patient initially presented to the emergency center on January 17 for depression and son brought her in for concerns of paranoia and altered activity. Patient expressed that she was depressed and had some suicidal ideations and was psychotic. She has had poor hygiene and has been picking at her skin and pulling her hair. There was a statement that she thought the food she was eating was her son's stool. There are no alcohol or drug issues. Her son had completed a mental health petition. The patient has been on Zoloft but apparently has not been taking this. Patient was placed on the [facility] floor as an observation status while waiting for mental health bed. She has been seen in consultation by psychiatry and by Dr. Cano. Dr. Cano has recommended Macrodantin for 3 days for treatment of cystitis which she had already completed. Patient is cleared medically for transfer to the mental health unit and was followed medically by [facility]. Yesterday afternoon, patient had a syncopal episode while on the mental health unit. She was found to have a low blood pressure at the lowest of 52/26 and heart rate of 53. It was reported that she had loss of bowel and bladder control. A-Team was called. No head injury. CAT scan of the brain showed no acute findings. IV fluids and 500 mL bolus given. [facility] Dr. Lundberg insisting that the patient go to the cardiac stepdown unit. He ordered 2 L of IV fluids. CBC was within normal limits. Potassium 3.3, creatinine 1.33, blood sugar 173. Troponin 0.058, 0.051, 0.044. EKG has twave inversion and st depression. Patient started on heparin drip, Lopressor, full-strength aspirin until seen by cardiology. The patient is seen on the MedSurg floor. She is complaining of a little chest pain on the right side of her chest. No shortness of breath. She denies any cardiac history and denies having been seen by revit drafter in the past. Patient has a sitter at the bedside per psychiatrist recommendations. Consult with cardiology and patient scheduled for heart catheterization tomorrow. Patient will be transferred to the cardiac stepdown unit. 01/24: patient is sitting up in bed awaiting heart cath this morning. Patient is extremely paranoid and reluctant to have heart cath done. Patient feels that medications that are being given for trying to stop her heart. Reassured patient that the medications are to help her heart. Patient has multiple ulcerations to lips and top of head from picking and scratching. Patient's potassium was 3.3 this morning. Patient has not had any further episodes of syncope. Sitter is at the bedside. Patient has been hemodynamically stable. 01/25: patient is sitting up in bed resting comfortably. Patient had her Yesterday which showed normal coronary angiogram. Normal left ventricular end diastolic pressure. Patient's ulcerations to scalp and around mouth have impr roxanne. Patient's appetite is still poor eating approximately 25% of meals. potassium 3.6 this morning.sitter remains at the bedside. Patient has been hemodynamically stable. Patient has not had any further episodes of syncope. Review of Systems Constitutional: Reports poor appetite, Denies chills, Denies fatigue, Denies fever Eyes: denies blurred vision, denies pain Ears, nose, mouth and throat: Denies headache, Denies sore throat Cardiovascular: Mild right-sidedchest pain, Denies shortness of breath Respiratory: Denies cough Gastrointestinal: Denies abdominal pain, Denies diarrhea, Denies nausea, Denies vomiting Genitourinary: Denies dysuria, Denies hematuria Musculoskeletal: Denies myalgias Integumentary: Reports wounds, Denies pruritus, Denies rash Neurological: Denies numbness, Denies weakness Psychiatric: Reports anxiety, Reports confusion, Reports depression, Reports hallucinations, reports paranoia Endocrine: Denies fatigue, Denies weight change Objective - Vital Signs Vital signs: Vital Signs Temp 98.6 F 01/25/19 08:00 Pulse 70 01/25/19 08:00 Resp 16 01/25/19 08:00 BP 134/65 01/25/19 09:54 Pulse Ox 96 01/25/19 08:00 Intake & Output 01/24/19 01/25/19 01/25/19 18:59 06:59 18:59 Intake Total 650 240 Balance 650 240 Weight 60 kg Intake: IV 50 Intake, IV Titration 600 Amount Sodium Chloride 0.9% 1, 600 000 ml @ 75 mls/hr IV . [id number] [facility] Rx#:[id number] Oral 240 Other: Voiding Method Toilet # Voids 1 - Exam Gen: This is a thin 68-year-old female. Patient is in bed and appears to be comfortable. No acute distress noted. HEENT: Head is atraumatic, normocephalic. Pupils equal, round. Sclerae is anicteric. Patient has multiple skin lesions on her right lip and face along with patchy hair loss. NECK: Supple. No JVD. No lymphadenopathy. No thyromegaly. LUNGS: Clear to auscultation. No wheezes or rhonchi. No intercostal retractions. HEART: Regular rate and rhythm. No murmur. ABDOMEN: Soft. Bowel sounds are present. No masses. No tenderness. EXTREMITIES: No pedal edema. No calf tenderness. Dorsalis pedis +2 bilaterally. skin: Multiple ulcerations to lips and scalp in various states of healing Limited to skin breakdown NEUROLOGICAL: Patient is awake, alert and oriented x3. Cranial nerves 2 through 12 are grossly intact. - Labs CBC & Chem 7: 01/25/19 05:33 01/25/19 05:33 Labs: Abnormal Lab Results - Last 24 Hours (Table) 01/25/19 01/25/19 Range/Units 05:33 05:33 RBC 3.66 L (3.80-5.40) m/uL Hgb 11.1 L (11.4-16.0) gm/dL Hct 32.8 L (34.0-46.0) % Chloride 109 H (98-107) mmol/L Assessment and Plan Plan: 1. Syncopal episode with hypotension. IV to 75 ML per hour Continue to monitor blood pressure closely. monitor orthostatic blood pressures. If +500 mL bolus to be given.no further episodes of syncope and blood pressure remained stable patient may be transferred back to mental health on Saturday 2. Possible non-ST elevated myocardial infarction. Cardiology consult appreciated. heart catheterization results noted above. 3. Recurrent depression with psychotic features. Continue Zoloft 150 mg daily, BuSpar 15 mg twice daily. psychiatric consult appreciated. Continue sitter at the bedside. 4. Generalized anxiety disorder. Continue BuSpar. 5. Cystitis status post completion of antibiotic treatment. 6. Neurodermatitis. Calamine lotion. bacitracin applied to site 7. Hyperlipidemia. Continue Lipitor. 8. Hypertension. Hold losartan 100 mg daily. metoprolol 12.5 mg twice a day 9. Hypokalemia. potassium replacement protocol. 10. DVT prophylaxis. Heparin. 11. GI prophylaxis Protonix 40 mg by mouth Patient admitted for a minimum of 2 night stay. Discharge plan: Return to the MHU Impression and plan of care have been directed as dictated by the signing physician. Kristy Whittaker nurse practitioner acting as scribe for signing physician. Additional CC's: Gamaliel Castañeda
--- NOTE | 2019-01-25 11:59 | P.PN ---
Subjective Progress Note Date: 01/25/19 this is a 68-year-old female with history of hypertension, hyperlipidemia, depression and anxiety and prior nicotine dependence. She had been seen in consultation by Dr. Jaeger,had abnormality in her EKG and enzymes and for this reason was taken to the cardiac catheterization lab. Cardiac catheterization did not reveal any significant obstructive coronary artery disease. Patient was seen and examined this morning, continues to be significantly depressed but is hemodynamically stable. Objective - Vital Signs Vital signs: Vital Signs Temp 98.6 F 01/25/19 08:00 Pulse 58 L 01/25/19 11:26 Resp 18 01/25/19 11:26 BP 123/59 01/25/19 11:26 Pulse Ox 96 01/25/19 11:26 Intake & Output 01/24/19 01/25/19 01/25/19 18:59 06:59 18:59 Intake Total 650 1040 Balance 650 1040 Weight 60 kg Intake: IV 50 Intake, IV Titration 600 800 Amount Sodium Chloride 0.9% 1, 600 000 ml @ 75 mls/hr IV . [id number] [facility] Rx#:[id number] Sodium Chloride 0.9% 1, 300 000 ml @ 75 mls/hr IV . [id number] [facility] Rx#:[id number] Sodium Chloride 0.9% 500 500 ml 500 ml @ 999 mls/hr IV .Q31M [facility] Rx#:[id number] Oral 240 Other: Voiding Method Toilet # Voids 1 1 - Exam PHYSICAL EXAMINATION: GENERAL:68-year-old female in no acute distress at the time of my examination HEENT: Head is atraumatic, normocephalic. Pupils equal, round. Sclera anicteric. Conjunctiva are clear. Mucous membranes of the mouth are moist. Neck is supple. There is no elevated jugular venous pressure.no carotid bruit is heard. HEART EXAMINATION: [Heart S1, S2 normal. No murmur or gallop heard.] CHEST EXAMINATION:[ Lungs are clear to auscultation and precussion. No chest wall tenderness is noted on palpation or with deep breathing.] ABDOMEN: [ Soft, nontender. Bowel sounds are heard. No organomegaly noted]. EXTREMITIES:[ 2+ peripheral pulses with no evidence of peripheral edema and no calf tenderness noted].right radial site clean and dry, good distal pulse. NEUROLOGIC [patient is awake, alert and oriented 3.] . - Labs CBC & Chem 7: 01/25/19 05:33 01/25/19 05:33 Labs: Abnormal Lab Results - Last 24 Hours (Table) 01/25/19 01/25/19 Range/Units 05:33 05:33 RBC 3.66 L (3.80-5.40) m/uL Hgb 11.1 L (11.4-16.0) gm/dL Hct 32.8 L (34.0-46.0) % Chloride 109 H (98-107) mmol/L Assessment and Plan Plan: assessment and plan #1 chest pain, status post cardiac catheterization which did not reveal any significantly obstructive coronary artery disease #2 syncope #3 hyperkalemia #4 hypertension #5 hyperlipidemia #6 major depressive disorder with psychotic features plan From cardiology's perspective, patient may be able to be discharged or return to the psych unit as per primary care. Follow-up appointment will be made in the office post discharge. DNP note has been reviewed, I agree with a documented findings and plan of care. Patient was seen and examined.
[2019-01-25] MEDS: ATORVASTATIN 40 MG TAB PO SCH (19:56)
[2019-01-26 06:15] LABS: Basophils % (A) 0 %; Eosinophils # (A) 0.1 k/uL (0-0.7); Eosinophils % (A) 2 %; HCT 32.5 % (34.0-46.0); HGB 10.9 gm/dL (11.4-16.0); Lymphocytes # (A) 1.6 k/uL (1.0-4.8); Lymphocytes % (A) 31 %; MCH 30.3 pg (25.0-35.0); MCHC 33.7 g/dL (31.0-37.0); MCV 89.9 fL (80.0-100.0); Mean Platelet Volume 7.8; Monocytes # (A) 0.4 k/uL (0-1.0); Monocytes % (A) 8 %; Neutrophils % (A) 58 %; Platelet Count 225 k/uL (150-450); RBC 3.61 m/uL (3.80-5.40); RDW 12.8 % (11.5-15.5); WBC 5.2 k/uL (3.8-10.6)
[2019-01-26] MEDS: PANTOPRAZOLE 40 MG TABLET PO SCH (06:22)
[2019-01-26] MEDS: METOPROLOL TARTRATE 12.5 MG TAB PO SCH (08:21)
[2019-01-26] MEDS: SERTRALINE 50 MG TAB PO SCH (08:21)
[2019-01-26] MEDS: MULTIVITAMINS, THERA 1 EACH TAB PO SCH (08:21)
[2019-01-26] MEDS: busPIRone HCl 5 MG TAB PO SCH (08:21)
[2019-01-26] MEDS: ASPIRIN 81 MG PO SCH (08:21)
[2019-01-26] MEDS: BACITRACIN 500 UNIT/GM OINT 28.4 GM TUBE TOPICAL SCH (08:22)
[2019-01-26] MEDS: SODIUM CHLORIDE 0.9% 1,000 ML IV SCH (08:26)
--- NOTE | 2019-01-26 10:49 | P.DS ---
Providers Date of admission: 01/22/19 16:12 Expected date of discharge: 01/26/19 Attending physician: Renu Lundberg Consults: 01/22/19 16:29 Consult Physician Routine Consulting Provider: Dong Melendez Consult Reason/Comments: major depression,anxiety Do you want consulting provider notified?: Yes 01/23/19 08:54 Consult Physician Routine Consulting Provider: Al Hardin Consult Reason/Comments: elevated troponin Do you want consulting provider notified?: Yes Primary care physician: Gamaliel Castañeda [facility] Course: This is a 68-year-old female patient of Dr. Castañeda with past medical history of hypertension, hyperlipidemia, right-sided breast cancer status post lumpectomy and radiation therapy, osteopenia. The patient last saw Dr. Castañeda 2 weeks ago. Patient initially presented to the emergency center on January 17 for depression and son brought her in for concerns of paranoia and altered activity. Patient expressed that she was depressed and had some suicidal ideations and was psychotic. She has had poor hygiene and has been picking at her skin and pulling her hair. There was a statement that she thought the food she was eating was her son's stool. There are no alcohol or drug issues. Her son had completed a mental health petition. The patient has been on Zoloft but apparently has not been taking this. [facility] status while waiting for mental health bed. She has been seen in consultation by psychiatry and by Dr. Cano. Dr. Cano has recommended Macrodantin for 3 days for treatment of cystitis which she had already completed. Patient is cleared medically for transfer to the mental health unit and was followed medically by [facility]. Yesterday afternoon, patient had a syncopal episode while on the mental health unit. She was found to have a low blood pressure at the lowest of 52/26 and heart rate of 53. It was reported that she had loss of bowel and bladder control. A-Team was called. No head injury. CAT scan of the brain showed no acute findings. IV fluids and 500 mL bolus given. Patient was transferred to the MedSurg floor despite Dr. Lundberg insisting that the patient go to the cardiac stepdown unit. He ordered 2 L of IV fluids. CBC was within normal limits. Potassium 3.3, creatinine 1.33, blood sugar 173. Troponin 0.058, 0.051, 0.044. EKG has twave inversion and st depression. Patient started on heparin drip, Lopressor, full-strength aspirin until seen by cardiology. The patient is seen on the [facility] floor. She is complaining of a little chest pain on the right side of her chest. No shortness of breath. She denies any cardiac history and denies having been seen by patient scheduling coordinator in the past. Patient has a sitter at the bedside per psychiatrist recommendations. Consult with cardiology and patient scheduled for heart catheterization tomorrow. Patient will be transferred to the cardiac stepdown unit. 01/24: patient is sitting up in bed awaiting heart cath this morning. Patient is extremely paranoid and reluctant to have heart cath done. Patient feels that medications that are being given for trying to stop her heart. Reassured patient that the medications are to help her heart. Patient has multiple ulcerations to lips and top of head from picking and scratching. Patient's potassium was 3.3 this morning. Patient has not had any further episodes of syncope. Sitter is at the bedside. Patient has been hemodynamically stable. 01/25: patient is sitting up in bed resting comfortably. Patient had her Yesterday which showed normal coronary angiogram. Normal left ventricular end diastolic pressure. Patient's ulcerations to scalp and around mouth have improved. Patient's appetite is still poor eating approximately 25% of meals. potassium 3.6 this morning.sitter remains at the bedside. Patient has been hemodynamically stable. Patient has not had any further episodes of syncope. 01/26: Patient remains on the selective care unit. She is cleared for discharge medically to the mental health unit. Medication reconciliation has been completed. Patient remains with sitter at the bedside. Patient is still psychotic requiring mental health admission. Cardiology has signed off.patient has been afebrile, heart rate 62, blood pressure 135/65, pulse ox 90% on room air. Discharge diagnoses: 1. Syncopal episode with hypotension, resolved. 2. Possible non-ST elevated myocardial infarction has been ruled out. 3. Recurrent depression with psychotic features. 4. Generalized anxiety disorder. 5. Cystitis status post completion of antibiotic treatment. 6. Neurodermatitis. 7. Hyperlipidemia. 8. Hypertension. 9. Hypokalemia. Discharge plan: Return to the MHU Impression and plan of care have been directed as dictated by the signing physician. Rosaura Mack nurse practitioner acting as scribe for signing physician. Patient Condition at Discharge: Good Plan - Discharge Summary Discharge Rx Participant: No New Discharge Prescriptions: New Aspirin 325 mg PO DAILY tab Bacitracin Oint 1 applic TOPICAL BID applic Atorvastatin [Lipitor] 40 mg PO HS tab Metoprolol Tartrate [Lopressor] 12.5 mg PO BID tab Multivitamins, Thera [Multivitamin (formulary)] 1 each PO DAILY tab Pantoprazole [Protonix] 40 mg PO AC-BRKFST tablet. Continue busPIRone HCl [Buspar] 15 mg PO BID tab Calamine/Zinc Oxide Lotion [Calamine Lotion] 1 applic TOPICAL TID PRN applic PRN Reason: Skin Irritation Melatonin 3 mg PO HS tablet Colloidal Oatmeal [Eucerin Eczema Relief] 1 applic TOPICAL QID PRN #30 gm PRN Reason: Dry Skin Sertraline HCl [Zoloft] 150 mg PO DAILY Discontinued Acetaminophen Tab [Tylenol] 650 mg PO Q6HR PRN tab PRN Reason: Mild Pain Or Fever > 100.5 Atorvastatin [Lipitor] 20 mg PO DAILY Discharge Medication List Calamine/Zinc Oxide Lotion [Calamine Lotion] 1 applic TOPICAL TID PRN applic 01/21/19 [Rx] Colloidal Oatmeal [Eucerin Eczema Relief] 1 applic TOPICAL QID PRN #30 gm 01/21/19 [Rx] Melatonin 3 mg PO HS tablet 01/21/19 [Rx] busPIRone HCl [Buspar] 15 mg PO BID tab 01/21/19 [Rx] Sertraline HCl [Zoloft] 150 mg PO DAILY 01/22/19 [History] Aspirin 325 mg PO DAILY tab 01/23/19 [Rx] Atorvastatin [Lipitor] 40 mg PO HS tab 01/23/19 [Rx] Bacitracin Oint 1 applic TOPICAL BID applic 01/23/19 [Rx] Metoprolol Tartrate [Lopressor] 12.5 mg PO BID tab 01/23/19 [Rx] Multivitamins, Thera [Multivitamin (formulary)] 1 each PO DAILY tab 01/23/19 [Rx] Pantoprazole [Protonix] 40 mg PO AC-BRKFST tablet. 01/23/19 [Rx] Follow up Appointment(s)/Referral(s): Gamaliel Castañeda DO [Primary Care Provider] - 1 Week (after discharge from the MHU) Activity/Diet/Wound Care/Special Instructions: Patient is medically cleared for transfer to MHU. patient has belongings in security Discharge Disposition: OTHER INSTITUTION NOT DEFINED
[2019-01-26 12:05] VITALS: TEMP 97.9
--- NOTE | 2019-01-26 13:13 | P.PN ---
Progress Note - Text Progress Note Date: 01/26/19 Psychiatric progress note: Interval History: Patient was seen today for psychiatric follow-up on the medical floors. Patient underwent cardiac catheterization and pulmonary perfusion test which appeared to come back negative. Patient's vital signs appeared to be stabilizing. Patient was seen at the bedside and continues to have a one-on-one sitter for safety. Patient appeared to be quite anxious while speaking to story writer and was picking more at her face and her hair during the conversation. Patient continues to endorse paranoia about people leaving her and about her staying in the hospital "for eternity". Patient continues to demonstrate catastrophizing and all or none thinking. Patient is illogical at times. Patient asked repeatedly about when she can leave the hospital and continues to demonstrate poor insight and judgment. Patient was encouraged to eat her meals and drinking ensure. Patient claims that she has been taking her medications and states that she's been sleeping poorly at night. At this time patient denies any suicidal or homical i deations, intent or plan. Patient denies any auditory, visual hallucinations and patient is endorsing paranoia at this time. Patient denies any side effects from the medications and has been compliant with meds. Mental Status Exam: General Appearance: Patient appears to be thin/frail, older than stated age is alert and appears anxious and is superficial/guarded. Poor hygiene/grooming. Multiple open lesions over patient's lips and face. Behavior: Patient is anxious & lying in bed without any agitated behavior. Superficially cooperative. Paranoid. Speech: Patient's speech is fluent and nonpressured. Mood/Affect: Patient reports their mood is "the same", affect is congruent and anxious. Suicidality/Homicidality: Patient denies having any homicidal ideation intent or plan. Passive passive suicidal ideations. Perceptions: Patient denies any auditory or visual hallucinations. Though content/process: Thought process is linear and goal-directed. Preoccupied with abandonment and endorsing paranoia. Catastrophizing. Memory and concentration: AOX3, grossly intact for the purposes of this session. Can spell "WORLD" backwards Judgment and insight: Poor Assessment Major Depression with psychotic features Anxiety disorder unspecified rule out obsessive-compulsive disorder Trichotillomania PLAN: -Delirium precautions recommended with patient including - avoiding use of narcotics and BUFFER COPPER sedatives, limit anticholinergic medications when possible, frequent re-orientation, minimize use of restraints, open window shades during the day and close them at night -Would recommend the following medication changes/additions: We will increase Zoloft 200 mg daily for anxiety/mood and continue with BuSpar 15 mg twice a day for anxiety. Melatonin when necessary for sleep. -continue with 1:1 sitter for safety until patient is transferred back to mental unit. -Cannot leave AMA at this time. Patient will need a petition and certification if attempting to leave AMA. Encouraged patient to eat her meals and consuming fluids to maintain nutritional status. Cardiology has signed off at this time. -When patient is medically clear and has stable vitals, can be transferred back to mental health unit.
[2019-01-26 13:39] VITALS: BMI 19.1
[2019-01-26 15:37] VITALS: BP 125/58; PULSE 65; RESP 20
[2019-01-27] MEDS ORDERED: SERTRALINE 100 MG TAB PO SCH (09:00)
== END 2019-01-26 19:50 | DRG 287 ==
LOC: 3NMEDONC 16:12 → 3SCARD 01-23 14:17
PROVIDERS: ADMIT Internal Medicine; ATTEND Internal Medicine
PROC: B2111ZZ Fluoroscopy of Multiple Coronary Arteries using Low Osmolar Contrast (ICD-10-PCS; 2019-01-24)
PROC: 4A023N7 Measurement of Cardiac Sampling and Pressure, Left Heart, Percutaneous Approach (ICD-10-PCS; principal; 2019-01-24 10:30)
DX: I95.9 Hypotension, unspecified (principal); F33.3 Major depressive disorder, recurrent, severe with psychotic symptoms; R07.9 Chest pain, unspecified; N30.90 Cystitis, unspecified without hematuria; L28.0 Lichen simplex chronicus; R79.89 Other specified abnormal findings of blood chemistry; E78.5 Hyperlipidemia, unspecified; I10 Essential (primary) hypertension; E87.6 Hypokalemia; L98.499 Non-pressure chronic ulcer of skin of other sites with unspecified severity; F63.3 Trichotillomania; F41.1 Generalized anxiety disorder; K21.9 Gastro-esophageal reflux disease without esophagitis; M85.80 Other specified disorders of bone density and structure, unspecified site; R32 Unspecified urinary incontinence; H04.123 Dry eye syndrome of bilateral lacrimal glands; Z79.899 Other long term (current) drug therapy; Z87.891 Personal history of nicotine dependence; Z92.3 Personal history of irradiation; Z85.3 Personal history of malignant neoplasm of breast; Z87.01 Personal history of pneumonia (recurrent); Z80.0 Family history of malignant neoplasm of digestive organs; Z83.2 Family history of diseases of the blood and blood-forming organs and certain disorders involving the immune mechanism; Z82.69 Family history of other diseases of the musculoskeletal system and connective tissue
CPT/HCPCS: 71045; 78582; 80048; 80053; 80061; 83735; 84484; 85025; 85379; 85610; 85730; 93005; 93306; 93458

== ENCOUNTER 2019-01-26 18:53 | Inpatient (IN) | payer BC, MEDICARE ==
[2019-01-26] MEDS ORDERED: CALAMINE/ZINC OXIDE LOTION 177 ML BTL TOPICAL PRN (22:23)
--- NOTE | 2019-01-27 02:36 | P.PN ---
Progress Note - Text Progress Note Date: 01/27/19 I attempted to see the patient for medical consultation she was inpatient on the medical floor and discharged today. After i introduced my self . patient recognized that I am not her doctor , and was requesting to be seen by Dr. Lundberg who saw her on the medical floor. She started talking about refusing to go back to medical floor and refusing to have surgery. she also refused to be seen by me and requesting that she only to be seen by dr. Lundberg which she identifies him as her doctor. I tried to explain the coverage system , and how we work as teams. She again refused to accept me as her doctor, and became very irritated and anxious when my "Loud" pager went off. and requested to be left alone to sleep her care will be signed off to the morning team.
[2019-01-27] MEDS ORDERED: SERTRALINE 100 MG TAB PO SCH (09:00)
[2019-01-27] MEDS: busPIRone HCl 5 MG TAB PO SCH ×2 (09:17→21:10)
[2019-01-27] MEDS: PANTOPRAZOLE 40 MG TABLET PO SCH (09:17)
[2019-01-27] MEDS: METOPROLOL TARTRATE 25 MG TAB PO SCH ×2 (09:20→21:10)
[2019-01-27] MEDS: BACITRACIN 500 UNIT/GM OINT 28.4 GM TUBE TOPICAL SCH ×2 (09:21→21:17)
[2019-01-27] MEDS: MULTIVITAMINS, THERA 1 EACH TAB PO SCH (09:30)
--- NOTE | 2019-01-27 20:48 | P.HP ---
Psychiatric H&P - . H&P Date: 01/27/19 History & Physical: Allergies Allergy/AdvReac Type Severity Reaction Status Date / Time No Known Allergies Allergy Verified 01/26/19 20:19 Vital Signs Temp 97.6 F 01/27/19 00:23 Pulse 58 L 01/27/19 11:41 Resp 16 01/27/19 11:41 BP 116/66 01/27/19 11:41 Pulse Ox 97 01/27/19 00:23 Intake & Output 01/26/19 01/27/19 01/27/19 18:59 06:59 18:59 Weight 59.693 kg Laboratory Last Values Triglycerides 90 mg/dL (<150) 01/27/19 08:30 Cholesterol 108 mg/dL (<200) 01/27/19 08:30 LDL Cholesterol, Calc 53 mg/dL (0-99) 01/27/19 08:30 HDL Cholesterol 37 mg/dL (40-60) L 01/27/19 08:30 TSH 2.230 mIU/L (0.465-4.680) 01/27/19 08:30 01/27/19 11:51 IDENTIFYING DATA: Patient is a 68-year-old female who is currently living in a house alone and has 1 son and 2 grandkids and is retired currently. HPI: Patient presented to the hospital initially for altered mental status along with paranoia and increase in her anxiety and depression. Patient was initially on the medical floors for observation due to AMS along with an active UTI on admission and was treated with Macrobid, stabilized and then transferred to mental health unit. On the first day of admission, patient was noted to feel dizzy and fell to the ground in the hallway and the A-team was called and patient was found to be hypotensive and transferred to the medical floors. Patient had elevated d-dimer along with 3 positive troponins and patient had notable changes on her EKG which led to pulmonary perfusion test along with cardiac echo and catheterization which came back negative. Patient was then stabilized on medications given fluids and transferred back to the mental health unit for further treatment. Patient today was seen by newspaper writer and appears to be anxious and states that she is feeling depressed and continues to endorse all or none thinking along with catastrophizing her situation in the hospital. Patient repeatedly states that she will be "locked up forever". Patient also believes that other people are going to leave her and that she is going to be left alone. She also believes that the staff and are not looking out for her best inte rest and out to hurt her. Patient spoke about wanting to leave and be discharged multiple times and has poor insight and judgment into her condition. She continues to endorse poor appetite and claims that she did not eat breakfast. She states that she is taking her medications regularly. Patient continues to have facial scabs and has been pulling her hair. Patient denies any active suicidal ideations however has passive thoughts of "don't want to be here anymore". Patient denies any homicidal ideations intent or plan. At this time patient denies any auditory or visual hallucinations. Patient denies any flight of ideas racing thoughts and increased in goal directed behavior. patient denies using any recreational drugs and denies any alcohol or cigarette use. PAST PSYCHIATRIC HISTORY: Patient was recently admitted to the mental health unit in November 2018 and was discharged on Zoloft which she stopped taking shortly after along with BuSpar 15 mg twice a day. Patient has a history of anxiety and depression. Patient states that she's been going [facility]. Patient denied seeing a psychiatrist upon discharge. She denies any previous suicide attempts. PMH: Right-sided breast cancer status post radiation treatment, HLP, hypertension, osteoarthritis ALLERGIES: as per EMR CHEMICAL DEPENDENCY HISTORY: as per HPI FAMILY PSYCHIATRIC/SUBSTANCE USE HISTORY: Claims that her mother suffered from depression SOCIAL HISTORY: Patient claims that she was born and raised in [facility] and completed high school and attended college for 2 years. 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 MENTAL STATUS EXAM: General Appearance: Patient appears to be thin/frail, older than stated age and appears to be anxious. Patient is superficial/guarded poor hygiene and grooming. Multiple lesions over patient's lip and face. Thinning hair Behavior: Patient is anxiously seated without any agitated behavior. Superficially cooperative, paraniod. Speech: Patient's speech is fluent and nonpressured Mood/Affect: Patient reports their mood is depressed and anxious, affect is congruent and appears anxious. Suicidality/Homicidality: Patient denies having any homicidal ideation intent or plan. Patient has passive suicidal ideations, no intent or plan. Perceptions: Patient denies any visual hallucinations or auditory hallucinations. Though content/process: thought content and thought process is linear and goal- directed. Paranoia. Patient is focused on discharge. Memory and concentration: AOX3, grossly intact for the purposes of this session. Can spell "WORLD" backwards Judgment and insight: poor/superficial. STRENGTHS/WEAKNESSES: strength is that patient is resilient and has supportive family, weaknesses that patient has multiple stressors and poor coping skills. INTELLECT: average IMPRESSIONS: Major Depression with psychotic features Anxiety disorder unspecified rule out obsessive-compulsive disorder Trichotillomania PLAN: -Patient is admitted under voluntary status to MHU for stabilization of psychiatric symptoms and safety. Patient signed adult voluntary form and medication consent and is placed in patient's chart. -Medications : Will switch zoloft to lexapro 10mg starting tomorrow for anxiety/depression. Will start Seroquel 25 mg daily at bedtime for sleep/paranoia. Continue with BuSpar 15 mg twice a day for anxiety. -Ativan and Geodon PRN for agitation/aggression -Currently awaiting hospitalist for evaluation and treatment of medical comorbidities. Will start topical abx ointment for open lesions. -Patient was informed of the risks, benefits and side effects of the medication and patient verbally consented to taking the medications. Patient signed med consent form and was placed in chart. -NRT -not need this patient does not smoke -Vitals check q4hr. will continue to monitor BP and HR closely. -encouraging fluids intake along with meals and ensure. Awaiting dietary consult. -RAVEN on board for discharge planning 01/27/19 11:58
[2019-01-27] MEDS ORDERED: MELATONIN 3 MG TABLET PO SCH (21:00)
[2019-01-27] MEDS: ATORVASTATIN 40 MG TAB PO SCH (21:10)
[2019-01-27] MEDS: QUEtiapine 25 MG TAB PO SCH (21:11)
[2019-01-28] MEDS ORDERED: ESCITALOPRAM 10 MG TAB PO SCH (09:00)
[2019-01-28] MEDS: BACITRACIN 500 UNIT/GM OINT 28.4 GM TUBE TOPICAL SCH ×2 (09:20→22:26)
[2019-01-28] MEDS: MULTIVITAMINS, THERA 1 EACH TAB PO SCH (09:22)
[2019-01-28] MEDS: busPIRone HCl 5 MG TAB PO SCH (09:22)
[2019-01-28] MEDS: PANTOPRAZOLE 40 MG TABLET PO SCH (09:22)
[2019-01-28] MEDS: METOPROLOL TARTRATE 25 MG TAB PO SCH ×2 (09:22→22:26)
--- NOTE | 2019-01-28 12:36 | P.PN ---
Progress Note - Text Progress Note Date: 01/28/19 Subjective: PAtient was seen after taking part in group and was directable and agreeable to speak to repairer typewriter in the office. As per staff, claims that patient continues to be paranoid and having a fear of abandonment however has been more visible on the unit and has been somewhat directable to go to meals and eat. Patient continues to appear anxious and combing her hair with hand during the interview. Patient was focused on dishcarge and contineus to have poor insight and judgment. Patient asked several times if she is going to be abandoned on the unit and that "everybody left and they're not coming back". Patient also stated that repairer typewriter will "put me in an elevator shaft and you can ascend me down stairs". Patient continues to claim that she has poor appetite however has been somewhat directable for meals. She claims that she slept better last night. She claims that she has been going to groups however is not able to elaborate what she is learning on the unit. At this time patient denies any suicidal or homicidal ideations, intent or plan. She denies any auditory or visual hallucinations. Mental Status Examination: General Appearance: Patient appears to be thin/frail, older than stated age and appears to be anxious. Poor hygiene and grooming. Multiple lesions over pat ient's lip and face. Thinning hair Behavior: Patient is anxiously seated without any agitated behavior. Superficially cooperative, paraniod. Speech: Patient's speech is fluent and nonpressured Mood/Affect: Patient reports their mood is depressed and anxious, affect is congruent Suicidality/Homicidality: Patient denies having any homicidal ideation intent or plan. Patient denies any suicidal ideations, no intent or plan. Perceptions: Patient denies any visual hallucinations or auditory hallucinations. Though content/process: thought content and thought process is linear and goal- directed. Paranoia. Focused on discharge. Memory and concentration: AOX3, grossly intact for the purposes of this session. Judgment and insight: poor/superficial Assessment: Major Depression with psychotic features Anxiety disorder unspecified rule out obsessive-compulsive disorder Trichotillomania PLAN: -Patient is admitted under voluntary status to MHU for stabilization of psychiatric symptoms and safety and continues to meet inpatient psychiatric criteria. Patient has signed adult voluntary form and medication consent and is placed in patient's chart. -Medications : Will increase lexapro 15 mg for anxiety/depression. Will continue with Seroquel 25 mg daily at bedtime for sleep/paranoia. Will increase BuSpar 20 mg twice a day for anxiety. -Ativan and Geodon PRN for agitation/aggression -Continue with topical abx ointment for open lesions. -Informed staff to encourage patient to be up and present for meal and encourage fluids during the day. Ensure TID with meals. -NRT -not need this patient does not smoke -Vitals check q4hr. will continue to monitor BP and HR closely. -SW on board for discharge planning once patient improves clinically.
[2019-01-28] MEDS: ATORVASTATIN 40 MG TAB PO SCH (22:26)
[2019-01-28] MEDS: busPIRone HCl 10 MG TAB PO SCH (22:26)
[2019-01-28] MEDS: QUEtiapine 25 MG TAB PO SCH (22:27)
[2019-01-29] MEDS: busPIRone HCl 10 MG TAB PO SCH ×2 (10:00→22:37)
[2019-01-29] MEDS: BACITRACIN 500 UNIT/GM OINT 28.4 GM TUBE TOPICAL SCH ×2 (10:00→22:40)
[2019-01-29] MEDS: ESCITALOPRAM 10 MG TAB PO SCH (10:00)
[2019-01-29] MEDS: PANTOPRAZOLE 40 MG TABLET PO SCH (10:00)
[2019-01-29] MEDS: METOPROLOL TARTRATE 25 MG TAB PO SCH ×2 (10:01→22:39)
[2019-01-29] MEDS: MULTIVITAMINS, THERA 1 EACH TAB PO SCH (10:01)
[2019-01-29] MEDS ORDERED: HALOPERIDOL LACTATE 5 MG/ML 1 ML VIAL IM PRN (11:34)
--- NOTE | 2019-01-29 13:26 | P.PN ---
Progress Note - Text Progress Note Date: 01/29/19 Subjective: Patient was seen sitting in her bed and was initially resistant however was directable and agreeable to speak to web content writer in the office. Patient continues to speak about abandonment and other themes of paranoia including "getting locked away" and that "people are given bring me down stairs and leave me there". Patient was highly suspicious of web content writer and was difficult to redirect. Patient was superficial and appeared to be more anxious this morning and was picking at her hair and her lip. As per staff and patient, claims that she did not eat breakfast this morning and was not consuming fluids although she was encouraged to do so. Patient continues to be focused on dishcarge and contineus to have poor insight and judgment. She states that she has been going to some groups however finding difficult to participate. Patient continues to claim that she has poor appetite and stated to web content writer that water and food are making her throat dry. She claimed that she slept poorly last night with frequent awakenings. At this time patient denies any suicidal or homicidal ideations, intent or plan. She denies any visual hallucinations. At this time patient admitted to auditory hallucinations claiming that "sometimes a sending messages". As per EMR, patient did not take her doses of medications yesterday and today. Patient was directed to the nurse's station by web content writer to check patient's vitals and patient became paranoid stating that she did not have her vitals taken. Mental Status Examination: General Appearance: Patient appears to be thin/frail, older than stated age and appears to be anxious. Poor hygiene and grooming. Multiple lesions over patient's lip and face. Thinning hair Behavior: Patient is anxiously seated without any agitated behavior. Superficially cooperative, paraniod. Speech: Patient's speech is fluent and nonpressured Mood/Affect: Patient reports their mood is "not good", affect is congruent Suicidality/Homicidality: Patient denies having any homicidal ideation intent or plan. Patient denies any suicidal ideations, no intent or plan. Perceptions: Patient denies any visual hallucinations or auditory hallucinations. Though content/process: thought content and thought process is linear and goal- directed. Paranoia. Focused on discharge. Memory and concentration: AOX3, grossly intact for the purposes of this session. Judgment and insight: poor/superficial Assessment: Major Depression with psychotic features Anxiety disorder unspecified rule out obsessive-compulsive disorder Trichotillomania PLAN: -Patient is admitted under voluntary status to MHU for stabilization of psychiatric symptoms and safety and continues to meet inpatient psychiatric criteria. Patient has signed adult voluntary form and medication consent and is placed in patient's chart. -Medications : Will continue with lexapro 15 mg for anxiety/depression. Will continue with Seroquel 25 mg daily at bedtime for sleep/paranoia. Will continue with BuSpar 20 mg twice a day for anxiety. Patient was not taking her medications yesterday. If patient continues to refuse medications will be filing for involuntary hospitalization/mandated treatment. -Haldol PRN for agitation/aggression -CBC and CMP ordered for tomorrow. -Continue with topical abx ointment for open lesions. -Informed staff to encourage patient to be up and present for meal and encourage fluids during the day. Ensure TID with meals. Patient has been refusing to eat and resistant to drinking water -NRT -not need this patient does not smoke -Vitals check q4hr. will continue to monitor BP and HR closely. -SW on board for discharge planning once patient improves clinically.
[2019-01-29] MEDS: QUEtiapine 25 MG TAB PO SCH (22:38)
[2019-01-29] MEDS: ATORVASTATIN 40 MG TAB PO SCH (22:39)
[2019-01-30] MEDS: BACITRACIN 500 UNIT/GM OINT 28.4 GM TUBE TOPICAL SCH ×2 (09:39→22:15)
[2019-01-30] MEDS: PANTOPRAZOLE 40 MG TABLET PO SCH (09:39)
[2019-01-30] MEDS: busPIRone HCl 10 MG TAB PO SCH ×3 (09:40→22:11)
[2019-01-30] MEDS: ESCITALOPRAM 10 MG TAB PO SCH ×2 (09:40→09:52)
[2019-01-30] MEDS: MULTIVITAMINS, THERA 1 EACH TAB PO SCH (09:40)
[2019-01-30] MEDS: METOPROLOL TARTRATE 25 MG TAB PO SCH ×2 (09:40→22:10)
--- NOTE | 2019-01-30 11:11 | P.PN ---
Progress Note - Text Progress Note Date: 01/30/19 Subjective: Patient was seen sitting on her bed and was directable and agreeable to speak to commercial insurance underwriter in the office. Patient continues to pick at her hair and her face during interview with commercial insurance underwriter. Patient also was questioning why commercial insurance underwriter was asking her certain questions and appeared to be paranoid and suspicious of commercial insurance underwriter. Patient continues to catastrophize and believes that she is going to be "taken away". Patient continues to also believes that she is never going to leave the hospital and the people going to forget about her. After patient answered any question she tried to take back her answer and tried to change it and asked commercial insurance underwriter what he was thinking about her answers. Patient admits to continuing anxiety and depressed mood. She continues to state that she does not feel hungry and does not feel like eating or drinking. she states that she slept better last night however does not say for how long. At this time patient admitted to auditory hallucinations however was not able to describe the voices. As per EMR, patient did take her medications this morning and also nighttime last night. Mental Status Examination: General Appearance: Patient appears to be thin/frail, older than stated age and appears to be anxious. Poor hygiene and grooming. Multiple lesions over pa tient's lip and face. Thinning hair Behavior: Patient is anxiously seated without any agitated behavior. paraniod/ suspicious. Speech: Patient's speech is fluent and nonpressured Mood/Affect: Patient reports their mood is "terrible", affect is congruent Suicidality/Homicidality: Patient denies having any homicidal ideation intent or plan. Patient denies any suicidal ideations, no intent or plan. Perceptions: Patient denies any visual hallucinations or auditory hallucinations. Though content/process: thought content and thought process is linear and goal- directed. Paranoia/suspicious Memory and concentration: AOX3, grossly intact for the purposes of this session. Judgment and insight: poor/superficial Assessment: Major Depression with psychotic features Anxiety disorder unspecified rule out obsessive-compulsive disorder Trichotillomania PLAN: -Patient is admitted under voluntary status to MHU for stabilization of psychiatric symptoms and safety and continues to meet inpatient psychiatric criteria. Patient has signed adult voluntary form and medication consent and is placed in patient's chart. -Medications : Will continue with lexapro 15 mg for anxiety/depression with the plan to titrate up as needed. Will switch Seroquel to Haldol by mouth liquid 1.5 mg twice a day with a plan to titrate up as needed for psychosis/paranoia. Will continue with BuSpar 20 mg twice a day for anxiety. patient did take her medications this morning and last night and will consider filing for court if patient continues to refuse medications throughout the weekend. -Haldol PRN for agitation/aggression -CBC and CMP ordered for today however patient declined them.vital signs reviewed. -Continue with topical abx ointment for open lesions. -Informed staff to encourage patient to be up and present for meal and encourage fluids during the day. Ensure TID with meals. Patient has been eating minimally and resistant to drinking water -NRT -not need this patient does not smoke -Vitals check q4hr. -SW on board for discharge planning once patient improves clinically.
[2019-01-30] MEDS: HALOPERIDOL ORAL SOLN 10 MG/5 ML CUP PO SCH ×2 (11:16→22:14)
[2019-01-30 11:19] LABS: Basophils % (A) 1 %; Eosinophils # (A) 0.1 k/uL (0-0.7); Eosinophils % (A) 1 %; HCT 40.3 % (34.0-46.0); HGB 13.3 gm/dL (11.4-16.0); Lymphocytes # (A) 1.4 k/uL (1.0-4.8); Lymphocytes % (A) 19 %; MCH 29.9 pg (25.0-35.0); MCV 90.4 fL (80.0-100.0); Mean Platelet Volume 7.4; Monocytes # (A) 0.4 k/uL (0-1.0); Monocytes % (A) 5 %; Neutrophils # (A) 5.4 k/uL (1.3-7.7); Neutrophils % (A) 73 %; Platelet Count 339 k/uL (150-450); RBC 4.45 m/uL (3.80-5.40); RDW 13.1 % (11.5-15.5); WBC 7.4 k/uL (3.8-10.6)
[2019-01-30 11:49] LABS: African American GFR (CKD) >90 (>60 ml/min/1.73 sqM); Anion Gap 13 mmol/L; Blood Urea Nitrogen 15 mg/dL (7-17); Carbon Dioxide 24 mmol/L (22-30); Chloride 104 mmol/L (98-107); Glucose 79 mg/dL (74-99); Non-African American GFR(CKD) >90 (>60 ml/min/1.73 sqM); Potassium 3.5 mmol/L (3.5-5.1); Sodium 141 mmol/L (137-145)
[2019-01-30] MEDS ORDERED: QUEtiapine 50 MG TAB PO SCH (21:00)
[2019-01-30] MEDS: ATORVASTATIN 40 MG TAB PO SCH (22:10)
[2019-01-31] MEDS: PANTOPRAZOLE 40 MG TABLET PO SCH (10:09)
[2019-01-31] MEDS: MULTIVITAMINS, THERA 1 EACH TAB PO SCH (10:10)
[2019-01-31] MEDS: BACITRACIN 500 UNIT/GM OINT 28.4 GM TUBE TOPICAL SCH ×2 (10:10→22:02)
[2019-01-31] MEDS: HALOPERIDOL ORAL SOLN 10 MG/5 ML CUP PO SCH ×2 (10:38→22:02)
[2019-01-31] MEDS: ESCITALOPRAM 10 MG TAB PO SCH (10:41)
[2019-01-31] MEDS: busPIRone HCl 10 MG TAB PO SCH ×2 (10:41→22:02)
[2019-01-31] MEDS: METOPROLOL TARTRATE 25 MG TAB PO SCH ×2 (10:41→22:02)
--- NOTE | 2019-01-31 14:11 | P.PN ---
Progress Note - Text Progress Note Date: 01/31/19 interval history: Patient is seen in cross coverage today. She reports that she is trying to eat makes reference to having some gastrointestinal difficulties. She makes reference to one of the pills sticking in her throat so she didn't take it today. She verbalizes concerns about me transferring her somewhere else. She makes reference to wanting to be able to go home. Mental status exam: She is alert and cooperative with the interview. She does not show any agitation. Regarding her mood she describes anxiety. She denies any thoughts of harm to self or others. She verbalizes concerns of being transferred to another place.
[2019-01-31] MEDS: ATORVASTATIN 40 MG TAB PO SCH (22:02)
[2019-02-01] MEDS: busPIRone HCl 10 MG TAB PO SCH ×2 (10:32→21:22)
[2019-02-01] MEDS: PANTOPRAZOLE 40 MG TABLET PO SCH (10:32)
[2019-02-01] MEDS: ESCITALOPRAM 10 MG TAB PO SCH (10:32)
[2019-02-01] MEDS: BACITRACIN 500 UNIT/GM OINT 28.4 GM TUBE TOPICAL SCH ×3 (10:32→21:18)
[2019-02-01] MEDS: HALOPERIDOL ORAL SOLN 10 MG/5 ML CUP PO SCH ×2 (10:33→21:18)
[2019-02-01] MEDS: METOPROLOL TARTRATE 25 MG TAB PO SCH ×2 (10:34→21:21)
[2019-02-01] MEDS: MULTIVITAMINS, THERA 1 EACH TAB PO SCH (10:34)
--- NOTE | 2019-02-01 15:19 | P.PN ---
Progress Note - Text Progress Note Date: 02/01/19 interval history: Patient is seen again in cross coverage today. She is seen in her room. She was found in her room lying in bed. She states that she took all nap. She is trying to eat some. She seems to relay that sleep was okay last night she did attend some groups today. She is taking her medications she reports. Mental status exam: She was found in her room lying in bed. She is cooperative with the interview. She seems to describe her mood is doing okay. She denies any hallucinations and denies any thoughts of harm to self or others. She does not show any agitation. She does verbalize concerns about being transferred somewhere today as she was yesterday. There is no agitation noted. Plan: Patient will be maintained on current psychotropic medication regimen. Continue to monitor for any medication side effects and monitor her ongoing response to treatment.
[2019-02-01] MEDS: ATORVASTATIN 40 MG TAB PO SCH (21:22)
[2019-02-02] MEDS: ESCITALOPRAM 10 MG TAB PO SCH (10:45)
[2019-02-02] MEDS: PANTOPRAZOLE 40 MG TABLET PO SCH (10:45)
[2019-02-02] MEDS: MULTIVITAMINS, THERA 1 EACH TAB PO SCH (10:45)
[2019-02-02] MEDS: busPIRone HCl 10 MG TAB PO SCH ×2 (10:46→21:21)
[2019-02-02] MEDS: HALOPERIDOL ORAL SOLN 10 MG/5 ML CUP PO SCH (10:47)
[2019-02-02] MEDS: METOPROLOL TARTRATE 25 MG TAB PO SCH ×2 (10:48→21:23)
[2019-02-02] MEDS: BACITRACIN 500 UNIT/GM OINT 28.4 GM TUBE TOPICAL SCH ×2 (10:57→21:23)
[2019-02-02] MEDS ORDERED: COLLOIDAL OATMEAL TOPICAL PRN (12:36)
--- NOTE | 2019-02-02 16:28 | P.PN ---
Subjective Progress Note Date: 02/02/19 Patient was seen and chart was reviewed. Case discussed with staff. Patient states that was going to select groups. [She]states that she is feeling sad about being in the hospital during the holidays. The patient tends to minimize her symptoms. She continues to appear anxious and picking her skin. She reports fair sleep and appetite. At this time patient denies any suicidal or homical ideations, intent or plan. Patient denies any auditory, visual hallucinations and denies any paranoia or delusions. Patient denies any side effects from the medications and has been compliant with meds. Objective - Vital Signs Vital signs: Vital Signs Temp 97.9 F 02/01/19 10:45 Pulse 61 02/01/19 21:24 Resp 16 02/01/19 10:45 BP 126/66 02/01/19 21:24 Pulse Ox 98 01/31/19 16:50 Intake & Output 02/01/19 02/02/19 02/02/19 18:59 06:59 18:59 Weight 55 kg - Exam Mental Status Exam: General Appearance: Patient appears to be stated age is alert, directable. fair hygiene and grooming. Patient has good eye contact. Behavior: Patient is seated without any agitated behavior. Appears to be anxious Speech: Patient's speech is nonpressured. soft tone. Mood/Affect: Patient reports their mood/anxiety is mildly improving, affect is congruent Suicidality/Homicidality: Patient denies having any suicidal or homicidal ideation intent or plan. Perceptions: Patient denies any auditory or visual hallucinations but appears preoccupied. Though content/process: Circumstantial Memory and concentration: AOX3, grossly intact for the purposes of this session. Judgment and insight: Poor - Labs CBC & Chem 7: 01/30/19 10:37 01/30/19 10:37 Assessment and Plan Assessment: Major Depression with psychotic features Anxiety disorder unspecified rule out obsessive-compulsive disorder Trichotillomania Plan: Patient is admitted under voluntary status to MHU for stabilization of psychiatric symptoms and safety. Patient signed adult voluntary form and medication consent and is placed in patient's chart. -Medications : Start Zyprexa Zydis 5 mg PO qhs. Discontinue PO Haldol -Ativan and Geodon PRN for agitation/aggression -Currently awaiting hospitalist for evaluation and treatment of medical comorbidities. Will start topical abx ointment for open lesions. -Patient was informed of the risks, benefits and side effects of the medication and patient verbally consented to taking the medications. Patient signed med consent form and was placed in chart. -NRT -not need this patient does not smoke -Vitals check q4hr. will continue to monitor BP and HR closely. -encouraging fluids intake along with meals and ensure. Awaiting dietary consult. -RAVEN on board for discharge planning
[2019-02-02] MEDS: OLANZapine ODT 5 MG TAB PO SCH (21:22)
[2019-02-02] MEDS: ATORVASTATIN 40 MG TAB PO SCH (21:22)
[2019-02-03] MEDS: ESCITALOPRAM 10 MG TAB PO SCH (09:25)
[2019-02-03] MEDS: busPIRone HCl 10 MG TAB PO SCH ×3 (09:25→21:51)
[2019-02-03] MEDS: MULTIVITAMINS, THERA 1 EACH TAB PO SCH ×2 (09:26→09:35)
[2019-02-03] MEDS: METOPROLOL TARTRATE 25 MG TAB PO SCH ×3 (09:26→21:51)
[2019-02-03] MEDS: PANTOPRAZOLE 40 MG TABLET PO SCH ×2 (09:26→09:35)
[2019-02-03] MEDS: BACITRACIN 500 UNIT/GM OINT 28.4 GM TUBE TOPICAL SCH ×2 (09:31→21:51)
[2019-02-03 09:34] LABS: Basophils % (A) 1 %; Eosinophils # (A) 0.2 k/uL (0-0.7); Eosinophils % (A) 3 %; HGB 12.4 gm/dL (11.4-16.0); Lymphocytes # (A) 1.5 k/uL (1.0-4.8); Lymphocytes % (A) 25 %; MCHC 33.4 g/dL (31.0-37.0); MCV 89.7 fL (80.0-100.0); Mean Platelet Volume 7.2; Monocytes # (A) 0.4 k/uL (0-1.0); Monocytes % (A) 7 %; Neutrophils # (A) 3.9 k/uL (1.3-7.7); Neutrophils % (A) 63 %; Platelet Count 299 k/uL (150-450); RBC 4.13 m/uL (3.80-5.40); RDW 13.2 % (11.5-15.5); WBC 6.1 k/uL (3.8-10.6)
[2019-02-03 09:41] LABS: ALT 14 U/L (4-34); AST 27 U/L (14-36); African American GFR (CKD) >90 (>60 ml/min/1.73 sqM); Albumin 3.4 g/dL (3.5-5.0); Alkaline Phosphatase 49 U/L (38-126); Anion Gap 5 mmol/L; Blood Urea Nitrogen 17 mg/dL (7-17); Calcium 9.5 mg/dL (8.4-10.2); Carbon Dioxide 34 mmol/L (22-30); Chloride 102 mmol/L (98-107); Glucose 96 mg/dL (74-99); Non-African American GFR(CKD) >90 (>60 ml/min/1.73 sqM); Potassium 3.6 mmol/L (3.5-5.1); Sodium 141 mmol/L (137-145); Total Bilirubin 0.5 mg/dL (0.2-1.3)
--- NOTE | 2019-02-03 14:32 | P.PN ---
Subjective Patient was seen and chart was reviewed. Case discussed with staff. The patient reports she is doing okay but continues to report feeling depressed about being in the hospital. The patient continues to minimize her symptoms. She reports that she has been eating okay but the staff things that she is not. The patient still reports picking her skin and pulling hair. Patient appears preoccupied but denies any auditory or visual hallucinations. She reports that she has been going to the groups. The patient denies any auditory or visual hallucinations. She denies any active suicidal or paranoid ideations at this time. Patient denies any side effects from the medications and has been compliant with meds. Objective - Vital Signs Vital signs: Vital Signs Temp 98.3 F 02/03/19 13:53 Pulse 58 L 02/03/19 13:53 Resp 18 02/03/19 13:53 BP 107/56 02/03/19 13:53 Pulse Ox 98 02/03/19 13:53 Intake & Output 02/02/19 02/03/19 02/03/19 18:59 06:59 18:59 Weight 55 kg - Exam Mental Status Exam: General Appearance: Patient appears to be stated age is alert, directable. fair hygiene and grooming. Patient has good eye contact. Behavior: Patient is seated without any agitated behavior. Appears to be anxious Speech: Patient's speech is nonpressured. soft tone. Mood/Affect: Patient reports their mood/anxiety is mildly improving, affect is congruent Suicidality/Homicidality: Patient denies having any suicidal or homicidal ideation intent or plan. Perceptions: Patient denies any auditory or visual hallucinations but appears preoccupied. Though content/process: Circumstantial Memory and concentration: AOX3, grossly intact for the purposes of this session. Judgment and insight: Poor - Labs CBC & Chem 7: 02/03/19 08:28 02/03/19 08:28 Labs: Abnormal Lab Results - Last 24 Hours (Table) 02/03/19 Range/Units 08:28 Carbon Dioxide 34 H (22-30) mmol/L Total Protein 6.0 L (6.3-8.2) g/dL Albumin 3.4 L (3.5-5.0) g/dL Assessment and Plan Assessment: Major Depression with psychotic features Anxiety disorder unspecified rule out obsessive-compulsive disorder Trichotillomania Plan: Patient is admitted under voluntary status to MHU for stabilization of psychiatric symptoms and safety. Patient signed adult voluntary form and medication consent and is placed in patient's chart. -Medications : Increase Zyprexa Zydis 10 mg PO qhs. Increase Lexapro 20 mg PO qam. -Ativan and Geodon PRN for agitation/aggression -Currently awaiting hospitalist for evaluation and treatment of medical comorbidities. Will start topical abx ointment for open lesions. -Patient was informed of the risks, benefits and side effects of the medication and patient verbally consented to taking the medications. Patient signed med consent form and was placed in chart. -NRT -not need this patient does not smoke -Vitals check q4hr. will continue to monitor BP and HR closely. -encouraging fluids intake along with meals and ensure. -SW on board for discharge planning
[2019-02-03] MEDS: ATORVASTATIN 40 MG TAB PO SCH (21:51)
[2019-02-03] MEDS: OLANZapine ODT 5 MG TAB PO SCH (21:52)
[2019-02-04] MEDS: ESCITALOPRAM 10 MG TAB PO SCH (10:36)
[2019-02-04] MEDS: busPIRone HCl 10 MG TAB PO SCH ×2 (10:37→20:52)
[2019-02-04] MEDS: PANTOPRAZOLE 40 MG TABLET PO SCH (10:37)
[2019-02-04] MEDS: MULTIVITAMINS, THERA 1 EACH TAB PO SCH (10:38)
[2019-02-04] MEDS: METOPROLOL TARTRATE 25 MG TAB PO SCH ×2 (10:38→20:50)
[2019-02-04] MEDS: BACITRACIN 500 UNIT/GM OINT 28.4 GM TUBE TOPICAL SCH ×2 (10:39→20:47)
--- NOTE | 2019-02-04 13:24 | P.PN ---
Subjective Progress Note Date: 02/04/19 Patient was seen and chart was reviewed. Case discussed with staff. The patient reports she is doing okay but continues to report feeling depressed about being in the hospital on [place]. The patient continues to minimize her symptoms. The staff expressed concerns about patient not eating and it has been 5 days. The patient reports that she has been drinking ensure every day. The patient has not lost any weight before last 2 days. The She reports that she has been eating okay but the staff reports that she is not. The patient still reports picking her skin and pulling hair but reports some improvement in that. Patient appears preoccupied but denies any auditory or visual hallucinations. She reports that she has been going to the groups. The patient denies any auditory or visual hallucinations. She denies any active suicidal or paranoid ideations at this time. Patient denies any side effects from the medications and has been compliant with meds. Objective - Vital Signs Vital signs: Vital Signs Temp 98.0 F 02/04/19 08:34 Pulse 68 02/04/19 08:34 Resp 16 02/04/19 08:34 BP 117/51 02/04/19 08:34 Pulse Ox 98 02/03/19 13:53 Intake & Output 02/03/19 02/04/19 02/04/19 18:59 06:59 18:59 Weight 55.2 kg - Exam Mental Status Exam: General Appearance: Patient appears to be stated age is alert, directable. fair hygiene and grooming. Patient has good eye contact. Behavior: Patient is seated without any agitated behavior. Appears to be anxious Speech: Patient's speech is nonpressured. soft tone and hesitant. Mood/Affect: Patient reports their mood/anxiety is mildly improving, affect is congruent Suicidality/Homicidality: Patient denies having any suicidal or homicidal ideation intent or plan. Perceptions: Patient denies any auditory or visual hallucinations but appears preoccupied. Though content/process: Circumstantial Memory and concentration: AOX3, grossly intact for the purposes of this session. Judgment and insight: Poor - Labs CBC & Chem 7: 02/03/19 08:28 02/03/19 08:28 Assessment and Plan Assessment: Major Depression with psychotic features Anxiety disorder unspecified rule out obsessive-compulsive disorder Trichotillomania Plan: Patient is admitted under voluntary status to MHU for stabilization of psychiat rocio symptoms and safety. Patient signed adult voluntary form and medication consent and is placed in patient's chart. -Medications : Increase Zyprexa Zydis 10 mg PO qhs. Increase Lexapro 20 mg PO qam. -Ativan and Geodon PRN for agitation/aggression -Currently awaiting hospitalist for evaluation and treatment of medical comorbidities. Will start topical abx ointment for open lesions. -Patient was informed of the risks, benefits and side effects of the medication and patient verbally consented to taking the medications. Patient signed med consent form and was placed in chart. -NRT -not need this patient does not smoke -Vitals check q4hr. will continue to monitor BP and HR closely. -encouraging fluids intake along with meals and ensure. -SW on board for discharge planning
[2019-02-04] MEDS: ATORVASTATIN 40 MG TAB PO SCH (20:48)
[2019-02-04] MEDS: OLANZapine ODT 10 MG TAB PO SCH (20:52)
[2019-02-05] MEDS: ESCITALOPRAM 20 MG TAB PO SCH (09:58)
[2019-02-05] MEDS: busPIRone HCl 10 MG TAB PO SCH ×2 (09:58→20:59)
[2019-02-05] MEDS: PANTOPRAZOLE 40 MG TABLET PO SCH (09:58)
[2019-02-05] MEDS: BACITRACIN 500 UNIT/GM OINT 28.4 GM TUBE TOPICAL SCH ×3 (09:59→20:58)
[2019-02-05] MEDS: METOPROLOL TARTRATE 25 MG TAB PO SCH ×2 (09:59→20:58)
[2019-02-05] MEDS: MULTIVITAMINS, THERA 1 EACH TAB PO SCH (09:59)
--- NOTE | 2019-02-05 10:01 | P.PN ---
Progress Note - Text Progress Note Date: 02/05/19 Subjective: Patient was seen laying on her bed and was directable and agreeable to speak to curriculum writer in the office. Patient was initially hesitant to get out of bed stating that she was cold however was eventually agreeable and directable. Patient stated that she is visited by her son and her friend yesterday however does not give many details of the conversation. Patient appears to be mildly less paranoid during interview and states that "most people on the unit are treating me okay". Patient did however state that she believes that the curriculum writer was "deleting me off the chart" when curriculum writer turned to the computer and highlighted some text. Patient appears to be mildly improved in terms of her directability and her cooperativeness. She did claim that she is trying to take her medications however states that her blood pressure is too low and needed to have her medications held. She states that her sleep continues to be poor and states that her mood and anxiety are "the same". Patient also claims that she has been going to some groups however only claims that "I'm just trying and playing games". She states that she did drink her Ensure this morning and her appetite has been mildly improving. At this time patient denied any auditory or visual hallucinations. She denies any suicidal or homicidal ideations intent or plan. Mental Status Examination: General Appearance: Patient appears to be thin/frail, older than stated age. Mildly improved hygiene and grooming. Multiple lesions over patient's lip and face appeared to be healing. Thinning hair Behavior: Patient is anxiously seated without any agitated behavior. paraniod/ suspicious, mildly improving. Speech: Patient's speech is fluent and nonpressured Mood/Affect: Patient reports their mood is "the same", affect is congruent Suicidality/Homicidality: Patient denies having any homicidal ideation intent or plan. Patient denies any suicidal ideations, no intent or plan. Perceptions: Patient denies any visual hallucinations or auditory hallucinations. Though content/process: thought content and thought process is linear and goal- directed. Paranoia/suspicious Memory and concentration: AOX3, grossly intact for the purposes of this session. Judgment and insight: poor/superficial, mildly improving. Assessment: Major Depression with psychotic features Anxiety disorder unspecified rule out obsessive-compulsive disorder Trichotillomania PLAN: -Patient is admitted under voluntary status to MHU for stabilization of psychiatric symptoms and safety and continues to meet inpatient psychiatric criteria. Patient has signed adult voluntary form and medication consent and is placed in patient's chart. -Medications : Will continue with lexapro 20 mg for anxiety/depression. Will continue with Zydis 10 mg daily at bedtime for psychosis/paranoia. Will continue with BuSpar 20 mg twice a day for anxiety. patient did take her medications this morning and last night and will consider filing for court if patient continues to refuse medications throughout the weekend. -Geodon and PRN for agitation/aggression -vital signs reviewed. Patient's blood pressure has been fluctuating. -Continue with topical abx ointment for open lesions. -Informed staff to encourage patient to be up and present for meal and encourage fluids during the day. Ensure TID with meals. Patient has been eating minimally. -NRT -not need this patient does not smoke -Vitals check q4hr. -SW on board for discharge planning once patient improves clinically. Will ask director social to reach out to family for further information.
[2019-02-05] MEDS: ATORVASTATIN 40 MG TAB PO SCH (20:58)
[2019-02-05] MEDS: OLANZapine ODT 10 MG TAB PO SCH (20:59)
[2019-02-06] MEDS: ESCITALOPRAM 20 MG TAB PO SCH (09:35)
[2019-02-06] MEDS: PANTOPRAZOLE 40 MG TABLET PO SCH (09:35)
[2019-02-06] MEDS: MULTIVITAMINS, THERA 1 EACH TAB PO SCH (09:35)
[2019-02-06] MEDS: BACITRACIN 500 UNIT/GM OINT 28.4 GM TUBE TOPICAL SCH ×2 (09:35→21:33)
[2019-02-06] MEDS: METOPROLOL TARTRATE 25 MG TAB PO SCH ×2 (09:37→21:35)
[2019-02-06] MEDS ORDERED: busPIRone HCl 10 MG TAB PO STA (10:14)
[2019-02-06] MEDS: busPIRone HCl 10 MG TAB PO SCH ×2 (10:15→21:34)
--- NOTE | 2019-02-06 10:20 | P.PN ---
Progress Note - Text Progress Note Date: 02/06/19 Subjective: Patient was seen laying on her bed and was directable and agreeable to speak to physician underwriter in the office. Patient appeared to have a mildly improved affect this morning and was more directable. Patient continues to have some paranoia and asked physician underwriter about the polycom camera next to his computer and believes that she was being recorded. It was explained to the patient that it was currently off and was only used for [address]. Patient was less preoccupied with being taken away from the unit and asked several times about discharge, wanting to go home. Patient did claim that she has been going to groups however only spoke about "playing games". Patient states that she did have her son come and visit her 2 days ago and was agreeable to have him visit over the weekend. Patient claims that her mood is "the same" and denies any changes in her anxiety claiming that if still elevated. She states that she slept approximately 4-5 hours at night. She states that she is eating small portions of her food and has been drinking the 3 ensures per day. She states that she is been picking at her lip less over the past couple of days. At this time patient denied any auditory or visual hallucinations. She denies any suicidal or homicidal ideations intent or plan. She continues to be paranoid, however is less preoccupied with it. Mental Status Examination: General Appearance: Patient appears to be thin/frail, older than stated age. Mildly improved hygiene and grooming. Multiple lesions over patient's lip and face appeared to be healing. Thinning hair Behavior: Patient is anxiously seated without any agitated behavior. paraniod/ suspicious, mildly improving. Speech: Patient's speech is fluent and nonpressured Mood/Affect: Patient reports their mood is "the same", affect is congruent and mildly improving range. Suicidality/Homicidality: Patient denies having any homicidal ideation intent or plan. Patient denies any suicidal ideations, no intent or plan. Perceptions: Patient denies any visual hallucinations or auditory hallucinations. Though content/process: thought content and thought process is linear and goal- directed. Paranoia/suspicious Memory and concentration: AOX3, grossly intact for the purposes of this session. Judgment and insight: poor/superficial, mildly improving. Assessment: Major Depression with psychotic features Anxiety disorder unspecified rule out obsessive-compulsive disorder Trichotillomania PLAN: -Patient is admitted under voluntary status to [facility] for stabilization of psychiatric symptoms and safety and continues to meet inpatient psychiatric criteria. Patient has signed adult voluntary form and medication consent and is placed in patient's chart. -Medications : Will continue with lexapro 20 mg for anxiety/depression. Will continue with Zydis 10 mg daily at bedtime for psychosis/paranoia. Continue with BuSpar 20 mg twice a day for anxiety. Patient has been more compliant with her medications and is agreeable to continue taking them. -Geodon and PRN for agitation/aggression -vital signs reviewed. Patient's blood pressure has been fluctuating. -Continue with topical abx ointment for open lesions. -Informed staff to encourage patient to be up and present for meal and encourage fluids during the day. Ensure TID with meals -NRT -not need this patient does not smoke -SW on board for discharge planning once patient improves clinically. Will ask pediatric social worker to reach out to family to have them visit over the weekend.
[2019-02-06] MEDS: ATORVASTATIN 40 MG TAB PO SCH (21:33)
[2019-02-06] MEDS: OLANZapine ODT 10 MG TAB PO SCH (21:35)
[2019-02-07] MEDS: PANTOPRAZOLE 40 MG TABLET PO SCH (09:27)
[2019-02-07] MEDS: BACITRACIN 500 UNIT/GM OINT 28.4 GM TUBE TOPICAL SCH ×2 (09:27→21:21)
[2019-02-07] MEDS: busPIRone HCl 10 MG TAB PO SCH ×2 (09:28→21:26)
[2019-02-07] MEDS: ESCITALOPRAM 20 MG TAB PO SCH (09:28)
[2019-02-07] MEDS: MULTIVITAMINS, THERA 1 EACH TAB PO SCH (09:28)
[2019-02-07] MEDS: METOPROLOL TARTRATE 25 MG TAB PO SCH ×2 (09:28→21:24)
--- NOTE | 2019-02-07 16:12 | P.PN ---
Progress Note - Text Progress Note Date: 02/07/19 Subjective: Patient was seen today as a cross coverage for Dr. Melendez. The patient was evaluated, chart reviewed, case discussed with the treatment team. Patient reported good sleep sleep, and according to chart review patient slept about 6 hours last night. Appetite was reported as "good ". Patient has been going to groups and other unit activities. The patient is compliant with her medications and denies any adverse reactions. She reports feeling "better than I was". She greatly minimizes depression and he denies suicidal thoughts, or feeling hopeless. She denies auditory or visual hallucinations, paranoid ideation and no delusions could be elicited. Patient presented with some obsession and to some degree guarded. She denies physical symptoms including chest pain, shortness of breath, diarrhea, constipation, or burning urination. Objective: Mental Status Examination: General Appearance: Patient appears to be thin/frail, older than stated age. Mildly improved hygiene and grooming. Behavior: Patient is cooperative, not fully engaged. Speech: Patient's speech is fluent and nonpressured Mood/Affect: "Better", affect is congruent and mildly improving range. Suicidality/Homicidality: Patient denies having any homicidal ideation intent or plan. Patient denies any suicidal ideations, no intent or plan. Perceptions: Patient denies any visual hallucinations or auditory hallucinations. Though content/process: thought content and thought process is linear and goal- directed. Paranoia/suspicious Memory and concentration: AOX3, grossly intact for the purposes of this session. Judgment and insight: improving. Assessment: Major Depression with psychotic features Anxiety disorder unspecified rule out obsessive-compulsive disorder Trichotillomania Plan: Continue inpatient level of care due to need for further stabilization on medications, and discharge planning Precautions: Continue 15 minutes check for safety. Consider medical consultation if any acute medical issues arise. Provide the patient individual, group therapy, substance use disorder counseling to give better insight and learn coping skills. Medications: BuSpar 30 mg twice daily for anxiety symptoms. Lexapro 20 mg daily for depression and anxiety. Zyprexa 10 mg at bedtime for psychotic symptoms and mood stabilization. Discharge patient to OUTPATIENT services upon a stabilization
[2019-02-07] MEDS: ATORVASTATIN 40 MG TAB PO SCH (21:21)
[2019-02-07] MEDS: OLANZapine ODT 10 MG TAB PO SCH (21:26)
[2019-02-08] MEDS: MULTIVITAMINS, THERA 1 EACH TAB PO SCH (09:20)
[2019-02-08] MEDS: ESCITALOPRAM 20 MG TAB PO SCH (09:20)
[2019-02-08] MEDS: busPIRone HCl 10 MG TAB PO SCH ×2 (09:20→20:51)
[2019-02-08] MEDS: METOPROLOL TARTRATE 25 MG TAB PO SCH ×2 (09:21→20:50)
[2019-02-08] MEDS: PANTOPRAZOLE 40 MG TABLET PO SCH (09:22)
[2019-02-08] MEDS: BACITRACIN 500 UNIT/GM OINT 28.4 GM TUBE TOPICAL SCH ×2 (09:23→20:50)
--- NOTE | 2019-02-08 12:54 | P.PN ---
Progress Note - Text Progress Note Date: 02/08/19 Subjective: Patient was seen today as a cross coverage for Dr. Melendez. The patient was evaluated, chart reviewed, case discussed with the treatment team. Patient reports continued to feel "better" and minimizes depression, denies feeling hopeless or suicidal. Patient denies any irritable mood, agitation, and he denies homicidal ideation. She reports feeling bored about being hospitalized but she is not sure if outside would be better than the hospital or not. She denies any hallucinations, and denies paranoid ideation. Patient seems internally preoccupied, but mainly preoccupied with thoughts and worry about her future. She reports good sleep and feels rested and he denies any appetite problem. She takes her medications and denies adverse reaction. She denies physical symptoms including chest pain or shortness of breath. Objective: Mental Status Examination: General Appearance: Patient appears to be thin/frail, older than stated age. improved hygiene and grooming. Behavior: Patient is cooperative, not fully engaged. Speech: Patient's speech is fluent and non-pressured Mood/Affect: "Fine", affect is congruent and mildly improving range. Suicidal/Homicidal ideation: Patient denies having any homicidal ideation intent or plan. Patient denies any suicidal ideation, no intent or plan. Perceptions: Patient denies any visual hallucinations or auditory hallucinations. Though content/process: thought content and thought process is linear and goal-directed. Seems internally preoccupied. Memory and concentration: AOX3, grossly intact for the purposes of this session. Judgment and insight: improving. Assessment: Major Depression with psychotic features Anxiety disorder unspecified rule out obsessive-compulsive disorder Trichotillomania Plan: Continue inpatient level of care due to need for further stabilization on medications, and discharge planning Precautions: Continue 15 minutes check for safety. Consider medical consultation if any acute medical issues arise. Provide the patient individual, group therapy, substance use disorder counseling to give better insight and learn coping skills. Medications: BuSpar 30 mg twice daily for anxiety symptoms. Lexapro 20 mg daily for depression and anxiety. Zyprexa 10 mg at bedtime for psychotic symptoms and mood stabilization. Discharge patient to OUTPATIENT services upon a stabilization
[2019-02-08] MEDS: ATORVASTATIN 40 MG TAB PO SCH (20:50)
[2019-02-08] MEDS: OLANZapine ODT 10 MG TAB PO SCH (20:51)
[2019-02-09] MEDS: BACITRACIN 500 UNIT/GM OINT 28.4 GM TUBE TOPICAL SCH ×2 (08:59→22:52)
[2019-02-09] MEDS: PANTOPRAZOLE 40 MG TABLET PO SCH (08:59)
[2019-02-09] MEDS: METOPROLOL TARTRATE 25 MG TAB PO SCH ×2 (09:00→22:51)
[2019-02-09] MEDS: busPIRone HCl 10 MG TAB PO SCH ×2 (09:00→22:48)
[2019-02-09] MEDS: ESCITALOPRAM 20 MG TAB PO SCH (09:00)
[2019-02-09] MEDS: MULTIVITAMINS, THERA 1 EACH TAB PO SCH (09:00)
--- NOTE | 2019-02-09 11:49 | P.PN ---
Progress Note - Text Progress Note Date: 02/09/19 Subjective: Patient was seen wandering the hallways and was directable and agreeable to speak to sign writer hand in the office. Patient appeared to more engaged during conversation and more talkative this morning. Patient claims that she has been going to groups and trying to participate as best as she can. She did state that she feels most of the other patients on the unit are younger than her and "don't really understand me". Patient continues to have some paranoia and believes that sign writer hand may be wanting to discharge her to another home or keep her in the hospital indefinitely. She was less preoccupied with staff or others trying to lock her away. Patient claims that she has been taking her medications and denies any side effects at this time. She states that she slept approximately 4-5 hours last night and denies any overnight complaints. She did state that her son came to visit her over the weekend and claims that "he thinks him doing good". Patient was preoccupied with discharge at times. She states that she is eating small portions of her food and has been drinking the 3 en sures per day. She states that she is been picking at her lip less over the past couple of days and has been allowing it to heal. When asked how she was doing this patient claims that "I just occupy my hands with something else". At this time patient denied any auditory or visual hallucinations. She denies any suicidal or homicidal ideations intent or plan. She continues to be paranoid, however is less preoccupied with it. Patient claimed that she is picking at her hair or less recently. Mental Status Examination: General Appearance: Patient appears to be thin, older than stated age. Mildly improved hygiene and grooming. Lesions over patient's lips and face head are appearing to be healing. Thinning hair Behavior: Patient is anxiously seated without any agitated behavior. paraniod/ suspicious, mildly improving. Speech: Patient's speech is fluent and nonpressured Mood/Affect: Patient reports their mood is "same", affect is congruent and mildly improving range. Suicidality/Homicidality: Patient denies having any homicidal ideation intent or plan. Patient denies any suicidal ideations, no intent or plan. Perceptions: Patient denies any visual hallucinations or auditory anna lucinations. Though content/process: thought content and thought process is linear and goal- directed. Paranoia/suspicious, which is mildly improving Memory and concentration: AOX3, grossly intact for the purposes of this session. Judgment and insight: poor/superficial, mildly improving. Assessment: Major Depression with psychotic features Anxiety disorder unspecified rule out obsessive-compulsive disorder Trichotillomania PLAN: -Patient is admitted under voluntary status to [facility] for stabilization of psychiatric symptoms and safety and continues to meet inpatient psychiatric criteria. Patient has signed adult voluntary form and medication consent and is placed in patient's chart. -Medications : Will continue with lexapro 20 mg for anxiety/depression. Will increase Zydis 12.5 mg daily at bedtime for psychosis/paranoia. Continue with BuSpar 30 mg twice a day for anxiety. -Geodon and PRN for agitation/aggression -vital signs reviewed. Patient's blood pressure continues to be fluctuating. -Continue with topical abx ointment for open lesions. -Encourage patient to be up and present for meal and encourage fluids during the day. Ensure TID with meals -NRT -not need this patient does not smoke -SW on board for discharge planning. Will ask social human services assistants to reach out to family who visited over the weekend for assessment of baseline and improvement. Patient likely discharge back home in 2-3 days.
[2019-02-09] MEDS: OLANZapine ODT 5 MG TAB PO SCH (22:48)
[2019-02-09] MEDS: ATORVASTATIN 40 MG TAB PO SCH (22:52)
[2019-02-10] MEDS: BACITRACIN 500 UNIT/GM OINT 28.4 GM TUBE TOPICAL SCH ×2 (08:45→21:17)
[2019-02-10] MEDS: ESCITALOPRAM 20 MG TAB PO SCH (08:46)
[2019-02-10] MEDS: PANTOPRAZOLE 40 MG TABLET PO SCH (08:46)
[2019-02-10] MEDS: METOPROLOL TARTRATE 25 MG TAB PO SCH ×2 (08:46→21:17)
[2019-02-10] MEDS: MULTIVITAMINS, THERA 1 EACH TAB PO SCH (08:46)
[2019-02-10] MEDS: busPIRone HCl 10 MG TAB PO SCH ×2 (08:46→21:15)
--- NOTE | 2019-02-10 10:27 | P.PN ---
Progress Note - Text Progress Note Date: 02/10/19 Subjective: Patient was seen participating in group and was directable and agreeable to speak to freelance writer in the office. Patient was appropriate with freelance writer and appeared to be less paranoid today, focusing more on discharge planning and how she is doing here on the unit. She states that she is trying to go to all the groups as best as she can and feels that she is gradually improving. She states that she did not sleep well last night due to a fire alarm and claims that she feels sleepy this morning. She claims that she was dozing off a little bit in group and when speaking about her medications patient wants to continue on the same dose of Zyprexa 12.5 mg. We discussed the possibility that Zyprexa may need to be titrated down to 10 mg as it may be causing oversedation in the morning however patient wanted to continue on the same dose for tonight. She states that she did speak with her [id number] last night. Patient claims that she ate more of her breakfast this morning and has been drinking her ensures every day. She feels that her appetite has been gradually improving. At this time patient denied any auditory or visual hallucinations. She denies any suicidal or homicidal ideations intent or plan. Patient claimed that she is picking at her hair less recently. Mental Status Examination: General Appearance: Patient appears to be thin, older than stated age. Improved hygiene and grooming. Lesions over patient's lips and face/head are appearing to be healing more. Thinning hair Behavior: Patient is calmly seated without any agitated behavior. paraniod/ suspicious improving. Speech: Patient's speech is fluent and nonpressured Mood/Affect: Patient reports their mood is "alright", affect is congruent and improving range. Suicidality/Homicidality: Patient denies having any homicidal ideation intent or plan. Patient denies any suicidal ideations, no intent or plan. Perceptions: Patient denies any visual hallucinations or auditory hallucinations. Though content/process: thought content and thought process is linear and goal- directed. Less paranoid/suspicious. Focused on discharge. Memory and concentration: AOX3, grossly intact for the purposes of this session. Judgment and insight: mildly improving. Assessment: Major Depression with psychotic features Anxiety disorder unspecified rule out obsessive-compulsive disorder Trichotillomania PLAN: -Patient is admitted under voluntary status to [facility] for stabilization of psychiatric symptoms and safety and continues to meet inpatient psychiatric criteria. Patient has signed adult voluntary form and medication consent and is placed in patient's chart. -Medications : Will continue with lexapro 20 mg for anxiety/depression. Will continue with Zydis 12.5 mg daily at bedtime for psychosis/paranoia. If patient continues to appear to be sleepy in the morning will decrease back down to 10 mg daily at bedtime prior to discharge. Continue with BuSpar 30 mg twice a day for anxiety. -Geodon and PRN for agitation/aggression -vital signs reviewed. -Continue with topical abx ointment for open lesions. -Encourage patient to be up and present for meal and encourage fluids during the day. Ensure TID with meals -NRT -not need this patient does not smoke -SW on board for discharge planning. Will ask licensed social worker to reach out to family to arrange for possible discharge tomorrow.
[2019-02-10 13:49] VITALS: BMI 18.8
[2019-02-10] MEDS: OLANZapine ODT 5 MG TAB PO SCH (21:15)
[2019-02-10] MEDS: ATORVASTATIN 40 MG TAB PO SCH (21:17)
[2019-02-11 07:01] VITALS: TEMP 98.2
[2019-02-11] MEDS: PANTOPRAZOLE 40 MG TABLET PO SCH (09:39)
[2019-02-11] MEDS: BACITRACIN 500 UNIT/GM OINT 28.4 GM TUBE TOPICAL SCH (09:39)
[2019-02-11] MEDS: busPIRone HCl 10 MG TAB PO SCH (09:40)
[2019-02-11] MEDS: MULTIVITAMINS, THERA 1 EACH TAB PO SCH (09:40)
[2019-02-11] MEDS: ESCITALOPRAM 20 MG TAB PO SCH (09:40)
[2019-02-11] MEDS: METOPROLOL TARTRATE 25 MG TAB PO SCH (09:40)
[2019-02-11 09:43] VITALS: BP 116/59; PULSE 99; RESP 20
--- NOTE | 2019-02-11 09:51 | P.DS ---
Providers Date of admission: 01/26/19 19:57 Expected date of discharge: 02/11/19 Attending physician: Dong Melendez MD Consults: 01/26/19 20:50 Consult Physician Routine Consulting Provider: Gema Physician Consult Reason/Comments: H&P and medical Do you want consulting provider notified?: Yes Primary care physician: Gamaliel Castañeda - Discharge Diagnosis(es) (1) Major depressive disorder with psychotic features Current Visit: Yes Status: Acute Priority: High (2) Anxiety disorder Current Visit: Yes Status: Acute Priority: High (3) Trichotillomania Current Visit: Yes Status: Acute Priority: Medium Hospital Course: Admission HPI: Patient is a 68-year-old female who is currently living in a house alone and has 1 son and 2 grandkids and is retired currently. Patient presented to the hospital initially for altered mental status along with paranoia and in crease in her anxiety and depression. Patient was initially on the medical floors for observation due to AMS along with an active UTI on admission and was treated with Macrobid, stabilized and then transferred to mental health unit. On the first day of admission, patient was noted to feel dizzy and fell to the ground in the hallway and the A-team was called and patient was found to be hypotensive and transferred to the medical floors. Patient had elevated d-dimer along with 3 positive troponins and patient had notable changes on her EKG which led to pulmonary perfusion test along with cardiac echo and catheterization which came back negative. Patient was then stabilized on medications given fluids and transferred back to the mental health unit for further treatment. Patient today was seen by publications writer and appears to be anxious and states that she is feeling depressed and continues to endorse all or none thinking along with catastrophizing her situation in the hospital. Patient repeatedly states that she will be "locked up forever". Patient also believes that other people are going to leave her and that she is going to be left alone. She also believes that the staff and are not looking out for her best interest and out to hurt her. Patient spoke about wanting to leave and be discharged multiple times and has poor insight and judgment into her condition. She continues to endorse poor appetite and claims that she did not eat breakfast. She states that she is taking her medications regularly. Patient continues to have facial scabs and has been pulling her hair. Patient denies any active suicidal ideations however has passive thoughts of "don't want to be here anymore". Patient denies any homicidal ideations intent or plan. At this time patient denies any auditory or visual hallucinations. Patient denies any flight of ideas racing thoughts and increased in goal directed behavior. patient denies using any recreational drugs and denies any alcohol or cigarette use. Hospital course: Upon re-admission as a transfer to the unit after being medically discharged/cleared patient was initially hesitant, paranoid and depressed. Patient was difficult to redirect and was initially selective in taking her medications and also in eating her meals however with treatment progression, patient became more directable and agreeable to engage with treatment. Patient got along well with other patients on the unit and followed unit protocol. Patient was compliant with the medications fully towards the end of her hospitalization. Patient was started on Zyprexa and titrated up to a dose of 12.5 mg daily at bedtime which needed to be decreased back down to 10 mg daily at bedtime for mood stabilization/paranoia as patient was noted to be feeling groggy in the morning. Patient was also started on Lexapro and titrated up to a dose of 20 mg daily for mood. Patient was also started on BuSpar and titrated up to a dose of 30 mg twice a day for anxiety. Patient spoke of her stressors and engaged in therapy both group and individual. Patient was also seen by medical team for history and physical exam. Patient began eating more of her meals and taking her nutritional supplementation and her vital signs and blood pressure improved. Patient also had lesions around her mouth and her head which she had been picking at due to her anxiety and was treated with antibacterial ointment and gradually improved/healed throughout her hospitalization. Throughout the course of the hospitalization patient gradually improved with regards to mood, anxiety, paranoia, sleep and became future oriented with improved insight and judgment. On the day of discharge patient denied any suicidal or homicidal ideations intent or plan denied any auditory or visual hallucinations. Patient endorsed wanting to live for her health and her future. The patient denied any access to guns or weapons. Patient denied any paranoia and did not endorse any delusions. Patient does not have a significant history of substance abuse however was counseled on abstaining from all substances including alcohol and marijuana. Patient was also counseled on the medications and need for regular compliance and was encouraged to follow-up with their outpatient appointment for mental health and also for primary care. Prior to discharge a family meeting will be arranged by social work specialist to answer any questions and ensure safety upon discharge. Mental status exam: General Appearance: Patient appears to be older than stated age is alert, thin, directable and cooperative. Patient is in no acute distress and has fair hygiene and grooming. Thinning hair and she is going lesions around her mouth and face. Behavior: Patient is calmly seated without any agitated behavior. Somewhat hesitant and anxious at times. Speech: Patient's speech is fluent and nonpressured. Mood/Affect: Patient reports their mood is "good", affect is congruent and euthymic. Suicidality/Homicidality: Patient denies having any suicidal or homicidal ideation intent or plan. Perceptions: Patient denies any auditory or visual hallucinations. Though content/process: There is no evidence of any delusional thought content and thought process is linear and goal-directed. Focused on discharge with some improved insight. Memory and concentration: AOX3, grossly intact for the purposes of this session. Can spell "WORLD" backwards correctly. Judgment and insight: improved, prognosis is guarded. Impression: Major depressive disorder, with psychotic features Anxiety disorder unspecified, rule out obsessive-compulsive disorder Trichotillomania Plan: -Continue with discharge today as patient has improved and stabilized psychiatrically and is not currently an imminent threat to herself and/or others. -Continue medications: Continue with Zyprexa 10 mg daily at bedtime for mood stabilization/psychosis. Continue with BuSpar 30 mg twice a day for anxiety. Continue with Lexapro 20 mg daily for anxiety/mood. -Patient was encouraged to continue with ensure nutritional supplementation along with 3 meals a day for adequate nutrition. Continue with topical antibiotic ointment for healing lesions on her face. -Patient was counseled on the need for medication compliance and appropriate follow-up at mental health and also primary care for medical issues. Patient verbalized understanding and agreed. -Social work to arrange for and conduct family meeting to ensure safety upon discharge and answer any questions/concerns. Social work also to arrange for patients follow up appointments for psychiatric care at [facility] along with follow up with primary care provider. -Patient counseled on abstaining from recreational drugs and marijuana and alcohol. Was informed/educated on the adverse effects on their physical and mental health. Patient verbally agreed and understood -Patient was instructed to return to the hospital or seek immediate medical care if their psychiatric or medical symptoms do worsen or reoccur. Patient Condition at Discharge: Stable Plan - Discharge Summary Discharge Rx Participant: No New Discharge Prescriptions: New busPIRone HCL [Buspar] 30 mg PO BID 28 Days tab Escitalopram [Lexapro] 20 mg PO DAILY 28 Days tab Multivitamins, Thera [Multivitamin (formulary)] 1 each PO DAILY 28 Days tab OLANZapine [ZyPREXA] 10 mg PO HS #28 tablet Continue Calamine/Zinc Oxide Lotion [Calamine Lotion] 1 applic TOPICAL TID PRN applic PRN Reason: Skin Irritation Colloidal Oatmeal [Eucerin Eczema Relief] 1 applic TOPICAL QID PRN #30 gm PRN Reason: Dry Skin Atorvastatin [Lipitor] 40 mg PO HS tab Metoprolol Tartrate [Lopressor] 12.5 mg PO BID tab Pantoprazole [Protonix] 40 mg PO AC-BRKFST tablet.dr Houghacin Oint 1 applic TOPICAL BID #1 applic Melatonin 3 mg PO HS #28 tablet Discontinued busPIRone HCl [Buspar] 15 mg PO BID tab Sertraline HCl [Zoloft] 150 mg PO DAILY Aspirin 325 mg PO DAILY tab Multivitamins, Thera [Multivitamin (formulary)] 1 each PO DAILY tab Discharge Medication List Calamine/Zinc Oxide Lotion [Calamine Lotion] 1 applic TOPICAL TID PRN applic 01/21/19 [Rx] Colloidal Oatmeal [Eucerin Eczema Relief] 1 applic TOPICAL QID PRN #30 gm 01/21/19 [Rx] Atorvastatin [Lipitor] 40 mg PO HS tab 01/23/19 [Rx] Metoprolol Tartrate [Lopressor] 12.5 mg PO BID tab 01/23/19 [Rx] Pantoprazole [Protonix] 40 mg PO AC-BRKFST tablet. 01/23/19 [Rx] Bacitracin Oint 1 applic TOPICAL BID #1 applic 02/11/19 [Rx] Escitalopram [Lexapro] 20 mg PO DAILY 28 Days tab 02/11/19 [Rx] Melatonin 3 mg PO HS #28 tablet 02/11/19 [Rx] Multivitamins, Thera [Multivitamin (formulary)] 1 each PO DAILY 28 Days tab 02/11/19 [Rx] OLANZapine [ZyPREXA] 10 mg PO HS #28 tablet 02/11/19 [Rx] busPIRone HCL [Buspar] 30 mg PO BID 28 Days tab 02/11/19 [Rx] Follow up Appointment(s)/Referral(s): [facility] Ocamporajendra Holloway [Outside] - 02/19/19 1:30 pm (Sree Loly will call if they get a cancellation and get her in sooner) Activity/Diet/Wound Care/Special Instructions: Activity and diet as tolerated. Avoid the use of street drugs and alcohol. Take all medications as prescribed. When you are in need of refills on your medications please contact your medical provider and/or outpatient psychiatrist to have this done. Please go to scheduled outpatient appointment for aftercare treatment. If symptoms return or become worse, call the crisis line at and/or go to the nearest emergency room for evaluation. Discharge Disposition: HOME SELF-CARE
== END 2019-02-11 13:09 | disposition home or self-care (01) | DRG 885 ==
LOC: 3MHU 19:57
PROVIDERS: ADMIT Psychiatry & Neurology Psychiatry; ATTEND Psychiatry & Neurology Psychiatry
DX: F32.3 Major depressive disorder, single episode, severe with psychotic features (principal); N39.0 Urinary tract infection, site not specified; R45.851 Suicidal ideations; E78.5 Hyperlipidemia, unspecified; F41.9 Anxiety disorder, unspecified; F42.9 Obsessive-compulsive disorder, unspecified; F63.3 Trichotillomania; I10 Essential (primary) hypertension; W19.XXXA Unspecified fall, initial encounter; Z91.81 History of falling; Z79.899 Other long term (current) drug therapy; Z85.3 Personal history of malignant neoplasm of breast; Z92.3 Personal history of irradiation; Z81.8 Family history of other mental and behavioral disorders; Z60.2 Problems related to living alone
CPT/HCPCS: 80048; 80053; 80061; 83036; 84443; 85025

== ENCOUNTER → 2019-11-10 | Outpatient (CLI) | payer MEDICARE, BC ==
[2019-11-10 16:10] VITALS: BP 151/88; PULSE 70; RESP 20; TEMP 98.3
--- NOTE | 2019-11-10 17:29 | P.HPOB ---
History of Present Illness H&P Date: 11/10/19 Chief Complaint: The patient is here for her routine gynecologic exam. This is a 69-year-old with an LMP of 2003. The patient's last Pap smear showed ASCUS with negative high-risk HPV testing. The patient is without gynecologic complaints. 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 Review of Systems The patient has gained 19 pounds over the last year. She denies respiratory, cardiac, or G.I. problems. Past Medical History Past Medical History: Cancer, Eye Disorder, GERD/Reflux, Hyperlipidemia, Hypertension, Pneumonia Additional Past Medical History / Comment(s): R breast cancer with lumpectomy and radiation 2016, osteopenia, vertigo at times, dry eyes bilaterally,hypotensive episode 01/22/19. 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 Cervical dysplasia 1988. History of Any Multi-Drug Resistant Organisms: None Reported Past Surgical History: Breast Surgery, Tonsillectomy Additional Past Surgical History / Comment(s): 1989 R breast excisional biopsy, benign cyst removed from R breast, 2016 R breast lumpectomy, D&C, cervical conization 1988, colonoscopy 2001. Past Anesthesia/Blood Transfusion Reactions: No Reported Reaction Additional Past Anesthesia/Blood Transfusion Reaction / Comment(s): "Sensitivity to anesthesia" Past Psychological History: Anxiety, Depression Additional Psychological History / Comment(s): Pt resides at home with her son. She is independent. She states she has hx of depression and anxiety but feels she is stable at this time with her depression. She had an admission 11/20/18 with severe major depressive disorder/generalized anxiety and suicidal ideation. Smoking Status: Former smoker Past Alcohol Use History: Occasional (3 per week) Additional Past Alcohol Use History / Comment(s): Patient was a smoker in college. Past Drug Use History: None Reported Additional History: She is single. She has been with her boyfriend since 2009 and lives with him. She is retired. - Past Family History Father Family Medical History: Cancer Additional Family Medical History / Comment(s): Father at age 74 from colon cancer. Mother Family Medical History: Deep Vein Thrombosis (DVT) Additional Family Medical History / Comment(s): Mother had back problems and scoliosis and at age 89. Brother(s) Additional Family Medical History / Comment(s): Patient has 1 brother with no major medical problems. Patient does not have any sisters. Patient has 1 son. Medications and Allergies Home Medications Medication Instructions Recorded Confirmed Type Metoprolol Tartrate [Lopressor] 12.5 mg PO BID tab 01/23/19 11/10/19 Rx Escitalopram [Lexapro] 20 mg PO DAILY 28 Days tab 02/11/19 11/10/19 Rx Melatonin 3 mg PO HS #28 tablet 02/11/19 11/10/19 Rx Multivitamins, Thera [Multivitamin 1 each PO DAILY 28 Days tab 02/11/19 11/10/19 Rx (formulary)] OLANZapine [ZyPREXA] 10 mg PO HS #28 tablet 02/11/19 11/10/19 Rx busPIRone HCL [Buspar] 30 mg PO QAM 11/10/19 11/10/19 History Allergies Allergy/AdvReac Type Severity Reaction Status Date / Time No Known Allergies Allergy Verified 11/10/19 16:01 Exam Vital Signs Temp Pulse Resp BP Pulse Ox 11/10/19 16:05 98.3 F 70 20 151/88 97 Intake and Output 11/10/19 11/10/19 11/10/19 06:59 14:59 22:59 Other: Weight 78.925 kg Height 5 feet 9 inches, weight 174 pounds, BMI 25.7. This is a well-developed well-nourished white female who is alert and oriented times 3 in no acute distress. HEENT: Within normal limits. NECK: Supple without mass or thyromegaly. CHEST AND LUNGS: Clear to auscultation. HEART: Regular rate and rhythm. BREASTS: Are without mass or discharge. There is a slight indentation at the 10 o'clock position of the right breast consistent with her previous lumpectomy. AXILLARY EXAM: Negative for adenopathy. BACK: Negative for CVA tenderness. ABDOMEN: Soft, nontender, without palpable masses. PELVIC EXAM: Normal external genitalia with mild atrophy. Cervix and vagina appear normal with mild to moderate atrophy. The cervix is somewhat flush with the back of the vagina consistent with her previous conization. The cervix is stenotic secondary to atrophy. There is no unusual discharge. There is no evidence of prolapse. The uterus is midposition, nongravid size and nontender. There are no palpable adnexal masses or tenderness. RECTAL EXAM: Rectovaginal exam is negative for mass or tenderness and is negative for occult blood. EXTREMITIES: Nontender. IMPRESSION: 1. 69-year-old menopausal female with normal gynecologic exam. 2. History of right breast cancer status post lumpectomy and radiation therapy in 2018 with no evidence of recurrence. 3. Previous ASCUS Pap smear with negative high-risk HPV testing. 4. History of osteopenia. PLAN: 1. Pap smear with high-risk HPV testing was obtained. 2. Self breast awareness was discussed with the patient. 3. Diagnostic mammogram is scheduled for 11/12/2019. She has an order form from her radiation oncologist for this. 4. Osteoporosis prevention was discussed. I have stressed the importance of adequate calcium, vitamin D and regular exercise. Recommended amounts of calcium and vitamin D were also discussed. I have recommended repeating bone density testing and the order slip was given to the patient for this. 5. I have recommended screening colonoscopy. She states she will be seeing Dr. Moran for this. 6. The patient was advised to return in 1-2 years for her well woman examination and as needed.
== END | disposition home or self-care (01) ==
LOC: WWCWWP 15:39
PROVIDERS: ATTEND Obstetrics & Gynecology
DX: Z53.9 Procedure and treatment not carried out, unspecified reason (principal)

== ENCOUNTER → 2019-11-12 | Outpatient (CLI) | payer MEDICARE, BC ==
--- NOTE | 2019-11-12 11:50 | MM ---
Reason for exam: additional evaluation requested from prior study. Last mammogram was performed 1 year and 1 month ago. History: Patient is postmenopausal and has history of breast cancer at age 66. Family history of breast cancer in maternal cousin at age 45. Malignant MG pre op needle loc RT of the right breast, February 06, 2017. Lumpectomy of the right breast, February 06, 2017. Malignant US biopsy breast VAD RT of the right breast, January 10, 2017. Benign excisional biopsy of the right breast, 1989. 4 cyst aspirations of the right breast. Radiation therapy of the right breast. Taking antineoplastic for 1 year beginning at age 66. Taking unspecified hormones for 1 year 6 months beginning at age 53. Physical Findings: Nurse did not find any significant physical abnormalities on exam. MG 3D Diag Mammo W/Cad CHRISTI Bilateral CC and MLO view(s) were taken. Prior study comparison: October 23, 2018, bilateral MG 3d diag mammo w/cad CHRISTI. October 22, 2017, bilateral MG 3d diag mammo w/cad CHRISTI. The breast tissue is heterogeneously dense. This may lower the sensitivity of mammography. Stable post operative changes right breast. Nodular density 9 o'clock left breast 3.7cm from nipple measures 7.5mm. Ultrasound recommended. These results were verbally communicated with the patient and result sheet given to the patient on 11/12/19. ASSESSMENT: Incomplete: need additional imaging evaluation, BI-RAD 0 RECOMMENDATION: Ultrasound of the left breast.
--- NOTE | 2019-11-12 11:52 | USB ---
Reason for exam: additional evaluation requested from abnormal screening. History: Patient is postmenopausal and has history of breast cancer at age 66. Family history of breast cancer in maternal cousin at age 45. Malignant MG pre op needle loc RT of the right breast, February 06, 2017. Lumpectomy of the right breast, February 06, 2017. Malignant US biopsy breast VAD RT of the right breast, January 10, 2017. Benign excisional biopsy of the right breast, 1989. 4 cyst aspirations of the right breast. Radiation therapy of the right breast. Taking antineoplastic for 1 year beginning at age 66. Taking unspecified hormones for 1 year 6 months beginning at age 53. US Breast Limited LT Left limited breast ultrasound including focal area of concern, retroareolar and axilla demonstrates a 5 x 3 x 4mm oval, cystic lesion at 3 o'clock. These results were verbally communicated with the patient and result sheet given to the patient on 11/12/19. ASSESSMENT: Probably benign, BI-RAD 3 RECOMMENDATION: Follow-up diagnostic mammogram and ultrasound of the left breast in 6 months.
== END | disposition home or self-care (01) ==
LOC: RADMAMWWP 10:09
PROVIDERS: ATTEND Radiology Radiation Oncology
DX: C50.411 Malignant neoplasm of upper-outer quadrant of right female breast (principal); R92.8 Other abnormal and inconclusive findings on diagnostic imaging of breast; Z79.811 Long term (current) use of aromatase inhibitors; Z17.0 Estrogen receptor positive status [ER+]; Z92.3 Personal history of irradiation
CPT/HCPCS: 77066; 76642; G0279; 77062

== ENCOUNTER → 2019-11-13 | Outpatient (CLI) | payer MEDICARE, BC ==
--- NOTE | 2019-11-13 15:43 | BD ---
EXAMINATION TYPE: Axial Bone Density DATE OF EXAM: 11/13/2019 COMPARISON: Prior DEXA bone scan 2018. CLINICAL HISTORY: Postmenopausal female. Height: 69 Weight: 174.1 FRAX RISK QUESTIONS: Alcohol (3 or more units per day): no Family History (Parent hip fracture): no Glucocorticoids (More than 3mos): no (Ex: prednisone, prednisolone, methylprednisolone, dexamethasone, and hydrocortisone). History of Fracture in Adulthood: yes Secondary Osteoporosis: 1. Type 1 Diabetes: no 2. Hyperthyroidism: no 3. Menopause before 45: no 4. Malnutrition: no 5. Chronic liver disease: no Rheumatoid Arthritis: no Current Tobacco Use: no RISK FACTORS HISTORY OF: Family History of Osteoporosis: yes Active: yes Diet low in dairy products/other sources of calcium: no Postmenopausal woman: age 55 MEDICATIONS: melatonin, escitalopram, olanzapine, Zocor, buspirone, metoprolol Additional History: pt had breast cancer 3 years ago EXAM MEASUREMENTS: Bone mineral densitometry was performed using the [employer] System. Bone mineral density as measured about the Lumbar spine is: ----- L1-L4(G/cm2): 1.024 T Score Values are as follows: ----- L2: -1.6 ----- L3: -1.5 ----- L4: -1.1 ----- L1-L4: -1.3 Bone mineral density has: decreased -4.3 % since study of: 06.06.2017 Bone mineral density about the R hip (g/cm2): 0.936 Bone mineral density about the L hip (g/cm2): 0.840 T Score values are as follows: -----R Neck: -0.7 -----L Neck: -1.4 -----R Total: -0.5 -----L Total: -1.1 Bone mineral density has: decreased -0.9 % since study of: 06.06.2017 IMPRESSION: Osteopenia remains present (T Score between -2.5 and -1). Bone density decrease is diminished from p rior. There remains slightly increased risk of fracture and the patient may be considered for treatment. Re-Screen 2-5 years. NOTE: T-SCORE=SD OF THE YOUNG ADULT MEAN.
== END | disposition home or self-care (01) ==
LOC: RADBDWWP 14:10
PROVIDERS: ATTEND Obstetrics & Gynecology
DX: M85.80 Other specified disorders of bone density and structure, unspecified site (principal); Z13.820 Encounter for screening for osteoporosis
CPT/HCPCS: 77080

== ENCOUNTER → 2020-05-18 | Outpatient (CLI) | payer MEDICARE, BC ==
--- NOTE | 2020-05-18 11:48 | MM ---
Reason for exam: follow-up at short interval from prior study. Last mammogram was performed 6 months ago. History: Patient is postmenopausal and has history of breast cancer at age 66. Family history of breast cancer in maternal cousin at age 45. Malignant MG pre op needle loc RT of the right breast, February 06, 2017. Lumpectomy of the right breast, February 06, 2017. Malignant US biopsy breast VAD RT of the right breast, January 10, 2017. Benign excisional biopsy of the right breast, 1989. 4 cyst aspirations of the right breast. Radiation therapy of the right breast. Taking antineoplastic for 1 year beginning at age 66. Taking unspecified hormones for 1 year 6 months beginning at age 53. Physical Findings: Nurse did not find any significant physical abnormalities on exam. MG 3D Diag Mammo W/Cad LT CC and MLO view(s) were taken of the left breast. Prior study comparison: November 12, 2019, bilateral MG 3d diag mammo w/cad CHRISTI. October 23, 2018, bilateral MG 3d diag mammo w/cad CHRISTI. The breast tissue is heterogeneously dense. This may lower the sensitivity of mammography. Focal asymmetry 12 o'clock left breast 3.7cm from nipple. Ultrasound recommended. These results were verbally communicated with the patient and result sheet given to the patient on 05/18/20. ASSESSMENT: Incomplete: need additional imaging evaluation, BI-RAD 0 RECOMMENDATION: Ultrasound of the left breast.
--- NOTE | 2020-05-18 11:49 | USB ---
Reason for exam: additional evaluation requested from abnormal screening. History: Patient is postmenopausal and has history of breast cancer at age 66. Family history of breast cancer in maternal cousin at age 45. Malignant MG pre op needle loc RT of the right breast, February 06, 2017. Lumpectomy of the right breast, February 06, 2017. Malignant US biopsy breast VAD RT of the right breast, January 10, 2017. Benign excisional biopsy of the right breast, 1989. 4 cyst aspirations of the right breast. Radiation therapy of the right breast. Taking antineoplastic for 1 year beginning at age 66. Taking unspecified hormones for 1 year 6 months beginning at age 53. US Breast Limited LT Technologist: Corinne Ruiz Left limited breast ultrasound including focal area of concern, retroareolar and axilla demonstrates a 0.3 x 0.3 x 0.3cm cystic lesion at 12 o'clock. Scanned 11-3 o'clock. These results were verbally communicated with the patient and result sheet given to the patient on 05/18/20. ASSESSMENT: Probably benign, BI-RAD 3 RECOMMENDATION: Follow-up diagnostic mammogram and ultrasound of the left breast in 6 months. Manage patient on a clinical basis.
== END | disposition home or self-care (01) ==
LOC: RADMAMWWP 08:54
PROVIDERS: ATTEND Radiology Radiation Oncology
DX: Z78.0 Asymptomatic menopausal state (principal); Z85.3 Personal history of malignant neoplasm of breast
CPT/HCPCS: 77065; 76642; G0279; 77061

== ENCOUNTER → 2020-12-13 | Outpatient (CLI) | payer MEDICARE, BC ==
--- NOTE | 2020-12-13 14:13 | MM ---
Reason for exam: additional evaluation requested from prior study. Last mammogram was performed 7 months ago. History: Patient is postmenopausal and has history of breast cancer at age 66. Family history of breast cancer in maternal cousin at age 45. Malignant MG pre op needle loc RT of the right breast, February 06, 2017. Lumpectomy of the right breast, February 06, 2017. Malignant US biopsy breast VAD RT of the right breast, January 10, 2017. Benign excisional biopsy of the right breast, 1989. 4 cyst aspirations of the right breast. Radiation therapy of the right breast. Taking antineoplastic for 1 year beginning at age 66. Taking unspecified hormones for 1 year 6 months beginning at age 53. Physical Findings: Nurse did not find any significant physical abnormalities on exam. MG 3D Diag Mammo W/Cad CHRISTI Bilateral CC and MLO view(s) were taken. Prior study comparison: May 18, 2020, left breast MG 3d diag mammo w/cad LT. November 12, 2019, bilateral MG 3d diag mammo w/cad CHRISTI. October 23, 2018, bilateral MG 3d diag mammo w/cad CHRISTI. There are scattered fibroglandular densities. Asymmetric breast tissue greater in the left breast. Post surgical changes. No significant new findings when compared with previous films. These results were verbally communicated with the patient and result sheet given to the patient on 12/13/20. ASSESSMENT: Benign, BI-RAD 2 RECOMMENDATION: Routine screening mammogram of both breasts in 1 year.
--- NOTE | 2020-12-13 14:14 | USB ---
Reason for exam: additional evaluation requested from prior study. History: Patient is postmenopausal and has history of breast cancer at age 66. Family history of breast cancer in maternal cousin at age 45. Malignant MG pre op needle loc RT of the right breast, February 06, 2017. Lumpectomy of the right breast, February 06, 2017. Malignant US biopsy breast VAD RT of the right breast, January 10, 2017. Benign excisional biopsy of the right breast, 1989. 4 cyst aspirations of the right breast. Radiation therapy of the right breast. Taking antineoplastic for 1 year beginning at age 66. Taking unspecified hormones for 1 year 6 months beginning at age 53. US Breast Limited LT Left limited breast ultrasound including focal area of concern, retroareolar and axilla demonstrates a 3 x 2 x 3mm oval, cystic lesion at 1 o'clock and a 4 x 3 x 3mm oval, cystic lesion at 2 o'clock. These results were verbally communicated with the patient and result sheet given to the patient on 12/13/20. ASSESSMENT: Benign, BI-RAD 2 RECOMMENDATION: Routine screening mammogram of both breasts in 1 year. Manage patient on a clinical basis.
== END | disposition home or self-care (01) ==
LOC: RADMAMWWP 12:53
PROVIDERS: ATTEND Radiology Radiation Oncology
DX: N64.89 Other specified disorders of breast (principal); Z85.3 Personal history of malignant neoplasm of breast; Z80.3 Family history of malignant neoplasm of breast
CPT/HCPCS: 77066; 76642; G0279; 77062

== ENCOUNTER 2021-01-12 00:28 | Inpatient (IN) | payer MEDICARE, BC ==
[2021-01-12] MEDS ORDERED: KETOROLAC 30 MG/ML 1 ML VIAL IVP STA (01:19)
--- NOTE | 2021-01-12 01:52 | ED ---
Fall HPI <Nasim Bundy - Last Filed: 01/12/21 06:10> - General Source: patient, EMS Mode of arrival: ambulatory Limitations: physical limitation <Brigitte Leong - Last Filed: 01/12/21 16:45> - General Chief Complaint: Fall Stated Complaint: Fall Time Seen by Provider: 01/12/21 01:12 - History of Present Illness Initial Comments: Patient is a 70-year-old female, presenting to the emergency department via EMS after she fell at home. Patient states she was drinking a lot of beers tonight, 8 or 9, she went home, lost her balance and fell landing mostly on her left hip. Patient states she already has a bad left hip and this fall made it worse. Denies any surgeries of the left hip. States she is unable to put much weight on it and is having a hard time even extending it. Patient denies hitting her head, no chest pain or shortness of breath. She denies pain in any other other extremities. She is not on blood thinners. Patient states she has no further complaints other than the left hip pain. (Brigitte Leong) - Related Data Home Medications Medication Instructions Recorded Confirmed LORazepam [Ativan] 1 mg PO HS 01/12/21 01/12/21 Sertraline [Zoloft] 150 mg PO DAILY 01/12/21 01/12/21 Allergies Allergy/AdvReac Type Severity Reaction Status Date / Time No Known Allergies Allergy Verified 01/12/21 07:20 Review of Systems ROS Other: All systems not noted in ROS Statement are negative. <Nasim Bundy - Last Filed: 01/12/21 06:10> ROS Other: All systems not noted in ROS Statement are negative. <Brigitte Loeng - Last Filed: 01/12/21 16:45> ROS Statement: Those systems with pertinent positive or pertinent negative responses have been documented in the HPI. Past Medical History Past Medical History: Cancer, Eye Disorder, GERD/Reflux, Hyperlipidemia, Hypertension, Pneumonia Additional Past Medical History / Comment(s): R breast cancer with lumpectomy and radiation 2016, osteopenia, vertigo at times, dry eyes bilaterally,hypotensive episode 01/22/19. 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 Cervical dysplasia 1988. History of Any Multi-Drug Resistant Organisms: None Reported Past Surgical History: Breast Surgery, Tonsillectomy Additional Past Surgical History / Comment(s): 1989 R breast excisional biopsy, benign cyst removed from R breast, 2017 R breast lumpectomy, D&C, cervical conization 1988, colonoscopy 2001. Past Anesthesia/Blood Transfusion Reactions: No Reported Reaction Additional Past Anesthesia/Blood Transfusion Reaction / Comment(s): "Sensitivity to anesthesia" Past Psychological History: Anxiety, Depression Smoking Status: Former smoker Past Alcohol Use History: Occasional Past Drug Use History: None Reported - Past Family History Father Family Medical History: Cancer Additional Family Medical History / Comment(s): Father at age 74 from colon cancer. Mother Family Medical History: Deep Vein Thrombosis (DVT) Additional Family Medical History / Comment(s): Mother had back problems and scoliosis and at age 89. Brother(s) Additional Family Medical History / Comment(s): Patient has 1 brother with no major medical problems. Patient does not have any sisters. Patient has 1 son. <Brigitte Leong L - Last Filed: 01/12/21 16:45> General Exam Limitations: physical limitation <rBigitte Leong - Last Filed: 01/12/21 16:45> - General Exam Comments Initial Comments: GENERAL: Patient is well-developed and well-nourished. Patient is nontoxic and in mild distress, appears intoxicated. HEAD: Atraumatic, normocephalic. EYES: Pupils equal round and reactive to light, extraocular movements intact, sclera anicteric, conjunctiva are normal. Eyelids were unremarkable. ENT: Nares patent, oropharynx clear without exudates. Moist mucous membranes. NECK: Normal range of motion, supple without lymphadenopathy or JVD. LUNGS: Unlabored respirations. Breath sounds clear to auscultation bilaterally and equal. No wheezes rales or rhonchi. HEART: Regular rate and rhythm without murmurs, rubs or gallops. ABDOMEN: Soft, nontender, normoactive bowel sounds. No guarding, no rebound. No masses appreciated. MUSCULOSKELETAL: Patient has pain to palpation of the left posterior and lateral hip, it does not appear to be leg shortening, patient has painful hip extension and is resting in a flexed position. She is neurovascular intact. No clubbing or cyanosis. NEUROLOGICAL: Patient is alert and oriented x 3. PSYCH: Normal mood, normal affect. SKIN: Warm, Dry, normal turgor, no rashes or lesions noted. (Brigitte Leong) Course Vital Signs 01/12/21 01/12/21 01/12/21 00:30 01:00 02:00 Temperature 97.6 F Pulse Rate 68 68 71 Respiratory 18 18 18 Rate Blood Pressure 126/76 141/78 148/83 O2 Sat by Pulse 96 96 96 Oximetry 01/12/21 01/12/21 01/12/21 04:01 06:14 08:35 Temperature Pulse Rate 88 79 90 Respiratory 18 18 20 Rate Blood Pressure 153/93 139/73 154/84 O2 Sat by Pulse 97 95 98 Oximetry 01/12/21 01/12/21 10:16 14:37 Temperature Pulse Rate 89 89 Respiratory 20 18 Rate Blood Pressure 168/88 162/95 O2 Sat by Pulse 97 98 Oximetry Medical Decision Making - Lab Data Result diagrams: 01/12/21 06:14 01/12/21 06:14 <Brigitte Leong - Last Filed: 01/12/21 16:45> - Medical Decision Making Patient is a 70-year-old female here from the EMS after falling at home today. She admits to be drinking, fell on her left hip. X-rays reveal no acute fractures dislocations of the left hip. Patient was given a dose of Toradol and reports improvement in her symptoms. She is able to flex and extend her hip without difficulty, she does have some mild soreness present. She is able to stand, place weight on leg. Patient stable for discharge. Patient's boyfriend is coming to pick her up. Patient can follow up with her primary care. If symptoms persist, I do recommend re-x-ray. She'll take Tylenol or Motrin for any discomfort. Patient was waiting on boyfriend to get her, upon his arrival, patient attempted to stand again and has intense pain. CT of the left hip was performed and shows a hairline intertrochanteric fracture left femur. Patient was then admitted for orthopedic consult. (Brigitte Leong) Disposition <Nasim Bundy - Last Filed: 01/12/21 06:10> Is patient prescribed a controlled substance at d/c from ED?: No <Brigitte Leong - Last Filed: 01/12/21 16:45> Clinical Impression: Fall, Alcohol intoxication, Left hip pain, Intertrochanteric fracture of left femur Disposition: ADMITTED IP TO THIS HOSP Condition: Stable
--- NOTE | 2021-01-12 02:54 | XR ---
EXAMINATION TYPE: XR Hip Complete LT DATE OF EXAM: 01/12/2021 COMPARISON: NONE HISTORY: Fall. Pain. TECHNIQUE: 2 views FINDINGS: There is some mild spurring on the femoral head. I see no fracture nor dislocation. Acetabu lum is intact. IMPRESSION: There is some osteoarthritis in the hip joint. No fracture seen.
[2021-01-12] MEDS ORDERED: MORPHINE SULFATE 4 MG/ML SYRINGE IM STA (04:20)
--- NOTE | 2021-01-12 05:33 | CT ---
EXAMINATION TYPE: CT hip LT wo con DATE OF EXAM: 01/12/2021 COMPARISON: HISTORY: fall CT DLP: 639.3 mGycm Automated exposure control for dose reduction was used. Images obtained from the upper ileum to the mid femur with no contrast. There is subchondral cystic changes on both sides of the left hip joint. There is hypertrophic spurri ng of the femoral head. There is hairline nondisplaced intertrochanteric fracture left femur. There i s no dislocation. There is no evidence of a soft tissue mass. There is no evidence of a pelvic mass. There is no free fluid in the pelvis. IMPRESSION: Hairline intertrochanteric fracture left femur. Osteoarthritis in the left hip joint.
--- NOTE | 2021-01-12 05:34 | XR ---
EXAMINATION TYPE: XR chest 1V DATE OF EXAM: 01/12/2021 COMPARISON: 01/22/2019 HISTORY: Left hip fracture TECHNIQUE: Single view FINDINGS: Heart and mediastinum are normal. Lungs are clear of infiltrate. There is no heart failure. There are no hilar masses. IMPRESSION: No active cardiopulmonary disease. Normal heart. No change.
[2021-01-12] MEDS ORDERED: NALOXONE 0.4 MG/ML 1 ML VIAL IV PRN ×2 (05:45→19:45)
[2021-01-12] MEDS ORDERED: MORPHINE SULFATE 4 MG/ML SYRINGE IV PRN (05:45)
[2021-01-12] MEDS ORDERED: ACETAMINOPHEN TAB 325 MG TAB PO PRN (05:45)
[2021-01-12] MEDS: ONDANSETRON 4 MG/2 ML VIAL IVP PRN (06:22)
[2021-01-12] MEDS: HYDROmorphone 0.5 MG/0.5 ML SYRINGE IVP PRN ×5 (06:22→21:56)
[2021-01-12] MEDS: SODIUM CHLORIDE 0.9% 1,000 ML IV SCH ×2 (06:22→14:34)
[2021-01-12 06:30] LABS: Basophils % (A) 0 %; Eosinophils # (A) 0.1 k/uL (0-0.7); Eosinophils % (A) 1 %; HCT 40.2 % (34.0-46.0); HGB 13.6 gm/dL (11.4-16.0); Lymphocytes % (A) 7 %; MCH 29.8 pg (25.0-35.0); MCHC 33.8 g/dL (31.0-37.0); MCV 88.3 fL (80.0-100.0); Monocytes # (A) 0.5 k/uL (0-1.0); Monocytes % (A) 4 %; Neutrophils # (A) 11.8 k/uL (1.3-7.7); Neutrophils % (A) 88 %; Platelet Count 299 k/uL (150-450); RBC 4.56 m/uL (3.80-5.40); RDW 12.1 % (11.5-15.5); WBC 13.4 k/uL (3.8-10.6)
[2021-01-12 06:44] LABS: ALT 24 U/L (4-34); AST 28 U/L (14-36); African American GFR (CKD) >90 (>60 ml/min/1.73 sqM); Albumin 4.4 g/dL (3.5-5.0); Alkaline Phosphatase 82 U/L (38-126); Anion Gap 11 mmol/L; Blood Urea Nitrogen 9 mg/dL (7-17); Calcium 9.5 mg/dL (8.4-10.2); Carbon Dioxide 23 mmol/L (22-30); Chloride 103 mmol/L (98-107); Glucose 114 mg/dL (74-99); Non-African American GFR(CKD) >90 (>60 ml/min/1.73 sqM); Potassium 4.1 mmol/L (3.5-5.1); Sodium 137 mmol/L (137-145); Total Bilirubin 0.4 mg/dL (0.2-1.3); Total Protein 7.4 g/dL (6.3-8.2)
[2021-01-12 06:49] LABS: INR 0.9 (<1.2); Partial Thromboplastin Time 20.7 sec (22.0-30.0); Prothrombin Time 10.1 sec (9.0-12.0)
--- NOTE | 2021-01-12 10:29 | P.HPOR ---
History of Present Illness H&P Date: 01/12/21 Chief Complaint: Left hip pain 70-year-old female presented after a fall from standing last night. States she got up and tripped and fell onto her left hip. I have note the patient was supposed to have a left total hip arthroplasty performed on Saturday however she did cancel this as she was not wanting to do around the holidays. She complained of immediate pain after her fall she complained of sharp pain with weightbearing after her fall as well which did not get any better and so she came to the emergency department as she was unable to walk. Planes of pain in her left hip that seems to radiate to the side of the hip. She denies any pain in her groin at this time. She denies any blunt head trauma or loss of consciousness with the fall. She denies any fevers chills shortness of breath or chest pain at this time. She denies any other injuries.. Review of Systems 14 points review of systems completed and as stated in HPI, all other systems reviewed are negative. Past Medical History Past Medical History: Cancer, Eye Disorder, GERD/Reflux, Hyperlipidemia, Hypertension, Pneumonia Additional Past Medical History / Comment(s): R breast cancer with lumpectomy and radiation 2016, osteopenia, vertigo at times, dry eyes bilaterally,hy potensive episode 01/22/19. 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 Cervical dysplasia 1988. History of Any Multi-Drug Resistant Organisms: None Reported Past Surgical History: Breast Surgery, Tonsillectomy Additional Past Surgical History / Comment(s): 1989 R breast excisional biopsy, benign cyst removed from R breast, 2016 R breast lumpectomy, D&C, cervical conization 1988, colonoscopy 2001. Past Anesthesia/Blood Transfusion Reactions: No Reported Reaction Additional Past Anesthesia/Blood Transfusion Reaction / Comment(s): "Sensitivity to anesthesia" Past Psychological History: Anxiety, Depression Smoking Status: Former smoker Past Alcohol Use History: Occasional Past Drug Use History: None Reported - Past Family History Father Family Medical History: Cancer Additional Family Medical History / Comment(s): Father at age 74 from colon cancer. Mother Family Medical History: Deep Vein Thrombosis (DVT) Additional Family Medical History / Comment(s): Mother had back problems and scoliosis and at age 89. Brother(s) Additional Family Medical History / Comment(s): Patient has 1 brother with no major medical problems. Patient does not have any sisters. Patient has 1 son. Medications and Allergies Home Medications Medication Instructions Recorded Confirmed Type LORazepam [Ativan] 1 mg PO HS 01/12/21 01/12/21 History Sertraline [Zoloft] 150 mg PO DAILY 01/12/21 01/12/21 History Allergies Allergy/AdvReac Type Severity Reaction Status Date / Time No Known Allergies Allergy Verified 01/12/21 07:20 Physical Examination Osteopathic Statement: *. No significant issues noted on an osteopathic structural exam other than those noted in the History and Physical/Consult. Patient is alert and oriented 3 appears well-nourished well-hydrated is in no acute distress. They does not appear septic. On exam the patient has no tenderness to palpation of her thoracic or lumbar spine. There is no edema or ballottement sign. She has tennis to palpation on the left hip with painful log roll of the left hip Lower extremities with 5 out of 5 strength in all major muscle groups except for the left hip where she has pain with motion Upper extremities show 5/5 strength in all major muscle groups. There is FROM that is painless of the b/l UE and LE in all major joints. They are intact to light touch sensation in C5 to T1 as well as L2 to S1 nerve distribution. Patient has palpable dorsalis pedis was posterior tibial pulses. Compartments are soft and compressible. Patient shows a negative Homans, Zamora's, negative Babinski's negative clonus bilaterally. negative straight leg raise bilaterally. No tensioning signs. Cranial nerves II through XII are grossly intact. Overall alignment is well-maintained in the sagittal coronal planes. [] Results X-rays of the left hip are reviewed and demonstrate a left IT fracture 2 part that is nondisplaced in nature. There are moderate to severe osteoarthritic changes of the left hip which are noted as well. With subchondral sclerosis subchondral cysts joint space narrowing and [id number] arthritic changes CT of the left hip is reviewed and demonstrates left hip intertrochanteric fracture nondisplaced 2 part there is moderate to severe osteoarthritic changes once again noted in the hip there is no fracture of the hemipelvis visualized. - Labs Labs: Abnormal Lab Results - Last 24 Hours (Table) 01/12/21 01/12/21 01/12/21 Range/Units 06:14 06:14 06:14 WBC 13.4 H (3.8-10.6) k/uL Neutrophils # 11.8 H (1.3-7.7) k/uL APTT 20.7 L (22.0-30.0) sec Glucose 114 H (74-99) mg/dL H & H 01/12/21 Range/Units 06:14 Hgb 13.6 (11.4-16.0) gm/dL Hct 40.2 (34.0-46.0) % Coagulation 01/12/21 Range/Units 06:14 INR 0.9 (<1.2) Result Diagrams: 01/12/21 06:14 01/12/21 06:14 Assessment and Plan Assessment: 1. Lt hip IT fracture, 2 part, non displaced 2. Lt hip OA 3. s/p FFS Plan: Orthopedic Surgery Risk Review Margarita Ennis is a 70-year-old female presenting for evaluation of sudden onse t left hip pain, inability to ambulate after fall from standing. It was my pleasure to have seen and examined Margarita Ennis . In our visit today we have had a chance to go over subjective complaints, physical examination findings and treatments including the natural course history without intervention and various interventional options. Her imaging demonstrates left hip IT fracture nondisplaced. On physical exam, Margarita Ennis demonstrates pain with motion of left hip, which is NV intact at this time. I have explained to the patient that this fracture needs stabilization. Based on the patients imaging, physical exam, and the rapid progression and disabling nature of her symptoms, at this time I recommend surgery in the form or a: Left hip intramedullary nail fixation I discussed the risk and benefits of this procedure at length with Margarita Ennis . Questions were invited and answered, and the patient wishes to proceed as outlined below. Currently, I am recommendin. Left hip intramedullary nail fixation 2. Review of surgical risks and benefits as well as an educational packet on the proposed surgical procedure. Risks: All surgical procedures come with inherent risks, including those related to positioning, anesthesia, intraoperative findings, and postoperative co mplications. It is important to understand that surgery does not come with any guarantee of a successful outcome as complications and adverse events are always possible. The patient was given a handout discussing the surgical procedure and risks associated with the intervention, both of which were discussed with the patient. These risks include but are not limited to the following: - Experiencing same, different or even worse symptoms compared to before surgery. - Requiring further surgery or other forms of treatment presently or at some time in the future . - On an extreme but fortunately relatively rare basis severe complication such as blindness, stroke, heart attack, temporary and/or permanent nerve injury, paralysis, coma, or may occur, sometimes without known explanation. - Surgical complications may include but are not limited to risk of in fection, fluid accumulation in the surgical dissection site, including a seroma or hematoma, that requires additional surgery, wound drainage, bleeding, new numbness or weakness, vision changes/loss, spinal fluid leakage, non-healing and/or infected incision, headaches, difficulty or inability to swallow, hoarseness, hemopneumothorax, pneumothorax, injury to nerves, spinal cord, blood vessels, lymphatics or other vital organs (i.e., bowel injury, injury to the great vessels); heterotopic bone formation; complications related to the hardware such as screws, rods, including misplaced hardware, device failure, hardware fracture/breakage, or hardware loosening; retained surgical instrumentations or devices and the need for further surgery. - Medical risks of the planned surgery include but are not limited to generalized Infections to the whole body or local areas outside of the surgical site (sepsis), heart attack, bleeding, anaphylaxis, meningitis, seizure, epilepsy, hearing loss, burn trujillo, laceration of the head or other areas of the body, bruising, hypersensitivity of the skin, bladder over distension; allergic reaction; shoulder injury related to positioning; fat, blood and air clots to other areas of the body like heart, lungs, brain; failure of internal organs s uch as lungs, kidneys, liver and excessive bleeding. If blood transfusions are necessary, note that transfusions may cause intolerance reactions such as anaphylaxis or other complex reactions. Despite best efforts, the results of surgery might not heal in terms of bone, soft tissues such as skin, fascia, ligaments, and joints. [facility] is an educational center that serves as a training facility for physician assistants, nurses, orthopedic residents and fellows. Residents are physicians who are completing their surgical intensive training following medical school. They assist in the operating room with direct supervision of the attending surgeons. [place] are surgeons who have completed their training and eligible for board certification. They have opted for an elective year of more specialized training in their field. They assist in the operating room under the supervision of the attending surgeons. Physician assistants are medically trained surgical providers who function in the outpatient, inpatient, and operating room setting under the direct supervision of the attending surgeon. [facility] has multiple operating rooms with single and overlapping rooms running daily. They currently function under the required guidelines as produced by the [facility] Finance Committee with regards to the overlapping rooms and will continue to comply with changes to this policy as they occur. The requirements include and are complied with as follows: (1) the critical portions of the overlapping rooms will not occur at the same time, (2) the attending pj acosta will be physically present during the critical portions of the procedure and immediately available during the entire case, and (3) a back-up attending is designated should the primary attending not be immediately available. The patient has had a chance to review all the listed information, has been given print outs detailing this information, and has had all his/her questions answered to their satisfaction. It was my pleasure to have seen and examined Margarita Ennis . In our visit today we have had a chance to go over my understanding of our patient's current condition, the natural course history without intervention and various interventional options. Questions were invited and answered, and the patient wishes to proceed as outlined above. I have seen and examined the patient for 25 minutes and we have spent more than 50% of the time in repeat and detailed counseling about the patient's condition, its natural course history with out and as much as can be predicted with surgery and re-review of various surgical treatment options. In conclusion, Margarita Ennis requested we proceed with the above suggested surgery and are willing to accept risks and limitations of the suggested surgery as nature of the disease process and our best attempts at treatment for the condition. Thank you again for allowing us to be part of your patient's care. Please don't hesitate to contact me if you have any further questions. Signed and authenticated by: Javier Hassan DO [facility] [address], [address] [address]
--- NOTE | 2021-01-12 13:11 | P.CONS ---
History of Present Illness - Reason for Consult Consult date: 01/12/21 - History of Present Illness HISTORY OF PRESENT ILLNESS This is a 70-year-old female patient of Dr. Castañeda with past medical history of sciatic breast cancer with lumpectomy and radiation in 2017, hypertension, hyperlipidemia, osteopenia. Patient is seen today in the emergency center waiting for a bed on the [facility] floor. Patient gives history that she had some friends visiting and she had 2 beers in the afternoon followed by 4-5 beers in the evening. She went to bed and then she needed to get up to the bathroom and jumped up it's thought that she caught her foot on the edge of the bed and fell around midnight. She thinks that she blacked out and she does not remember the fall. She states she normally drinks about 2-3 beers 2 times per week. She denies having any head injury. She did have significant left hip pain and could not get up. EMS was called and patient was brought into the emergency center for further evaluation. Patient was found to be afebrile, heart rate 60, blood pressure 126/76, pulse ox 96% on room air. WBC 13.4, hemoglobin 13.6, platelet count 299. INR 0.9. Electrolytes and renal function are normal with creatinine of 0.55. Liver function tests are normal. Coronavirus PCR not detected. Chest x-ray revealed no acute cardiopulmonary process. X-ray revealed osteoarthritis CAT scan of the left hip revealed hairline intertrochanteric fracture of the left femur. Osteoarthritis of the left hip joint. REVIEW OF SYSTEMS Constitutional: No fever, no chills, no night sweats. No weight change. No weakness, fatigue or lethargy. No daytime sleepiness. EENT: No headache. No blurred vision or double vision, no loss of vision. No loss of Hearing, no ringing in the ears, no dizziness. No nasal drainage or congestion. No epistaxis. No sore throat. Lungs: No shortness of breath, cough, no sputum production. No wheezing. Cardiovascular: No chest pain, no lower extremity edema. No palpitations. No paroxysmal nocturnal dyspnea. No orthopnea. No lightheadedness or dizziness. No syncopal episodes. Abdominal: No abdominal pain. No nausea, vomiting. No diarrhea. No constipation. No bloody or tarry stools. No loss of appetite. Genitourinary: No dysuria, increased frequency, urgency. No urinary retention. Musculoskeletal: No myalgias. No muscle weakness, no gait dysfunction, no frequent falls. No back pain. No neck pain. Left hip pain. Integumentary: No wounds, no lesions. No rash or pruritus. No unusual bruising. No change in hair or nails. Neurologic: No aphasia. No facial droop. No change in mentation. No head injury. No headache. No paralysis. No paresthesia. Psychiatric: No depression. No anxiety. No mood swings. Endocrine: No abnormal blood sugars. No weight change. No excessive sweating or thirst. No cold intolerance. SOCIAL HISTORY Patient was a smoker one pack per day and unsure when she quit smoking but it was number of years ago. Patient drinks alcohol 2-3 beers about 2 times per week. FAMILY HISTORY Father at age 74 from colon cancer. Family Medical History: Deep Vein Thrombosis (DVT) Additional Family Medical History / Comment(s): Mother had back problems and scoliosis and at age 89. Brother(s) Additional Family Medical History / Comment(s): Patient has 1 brother with no major medical problems. Patient does not have any sisters. Patient has 1 son. PHYSICAL EXAMINATION Gen: This is a 70-year-old female. Patient is resting on the ER stretcher and appears to be fairly comfortable. HEENT: Head is atraumatic, normocephalic. Pupils equal, round. Sclerae is anicteric. NECK: Supple. No JVD. No lymphadenopathy. No thyromegaly. LUNGS: Clear to auscultation. No wheezes or rhonchi. No intercostal retractions. HEART: Regular rate and rhythm. No murmur. ABDOMEN: Soft. Bowel sounds are present. No masses. No tenderness. EXTREMITIES: No pedal edema. No calf tenderness. Left hip tenderness. NEUROLOGICAL: Patient is awake, alert and oriented x3. Cranial nerves 2 through 12 are grossly intact. ASSESSMENT AND PLAN 1. Left intertrochanteric fracture of the femur. Patient is scheduled for left hip IM nail today. Patient is cleared medically for surgical intervention. Continue pain management, therapies per orthopedics. Continue incentive spirometry to reduce incidence of atelectasis and hospital-acquired pneumonia. DVT prophylaxis per orthopedics. 2. History of hypertension, patient not currently on medication. 3. History of hyperlipidemia. Patient is not currently on statin. 4. Osteopenia. 5. Recurrent depression and generalized anxiety disorder. Continue lorazepam 1 mg at bedtime, Zoloft 150 mg daily. 6. GI prophylaxis. Protonix. 7. COVID-19 testing negative. Patient has been hospitalized during a pandemic. DISCHARGE PLAN To be determined. Possible inpatient rehab. Impression and plan of care have been directed as dictated by the signing physician. Rosaura Mack nurse practitioner acting as scribe for signing physician. Past Medical History Past Medical History: Cancer, Eye Disorder, GERD/Reflux, Hyperlipidemia, Hypertension, Pneumonia Additional Past Medical History / Comment(s): R breast cancer with lumpectomy and radiation 2016, osteopenia, vertigo at times, dry eyes bilaterally,hypotensive episode 01/22/19. 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 Cervical dysplasia 1988. History of Any Multi-Drug Resistant Organisms: None Reported Past Surgical History: Breast Surgery, Tonsillectomy Additional Past Surgical History / Comment(s): 1989 R breast excisional biopsy, benign cyst removed from R breast, 2016 R breast lumpectomy, D&C, cervical conization 1988, colonoscopy 2001. Past Anesthesia/Blood Transfusion Reactions: No Reported Reaction Additional Past Anesthesia/Blood Transfusion Reaction / Comm: "Sensitivity to anesthesia" Past Psychological History: Anxiety, Depression Smoking Status: Former smoker Past Alcohol Use History: Occasional Past Drug Use History: None Reported - Past Family History Father Family Medical History: Cancer Additional Family Medical History / Comment(s): Father at age 74 from colon cancer. Mother Family Medical History: Deep Vein Thrombosis (DVT) Additional Family Medical History / Comment(s): Mother had back problems and scoliosis and at age 89. Brother(s) Additional Family Medical History / Comment(s): Patient has 1 brother with no major medical problems. Patient does not have any sisters. Patient has 1 son. Medications and Allergies Home Medications Medication Instructions Recorded Confirmed Type LORazepam [Ativan] 1 mg PO HS 01/12/21 01/12/21 History Sertraline [Zoloft] 150 mg PO DAILY 01/12/21 01/12/21 History Allergies Allergy/AdvReac Type Severity Reaction Status Date / Time No Known Allergies Allergy Verified 01/12/21 07:20 Physical Exam Vitals: Vital Signs Temp Pulse Resp BP Pulse Ox 01/12/21 08:35 90 20 154/84 98 01/12/21 06:14 79 18 139/73 95 01/12/21 04:01 88 18 153/93 97 01/12/21 02:00 71 18 148/83 96 01/12/21 01:00 68 18 141/78 96 01/12/21 00:30 97.6 F 68 18 126/76 96 Intake and Output 01/11/21 01/12/21 01/12/21 22:59 06:59 14:59 Other: Weight 72.575 kg Results CBC & Chem 7: 01/12/21 06:14 01/12/21 06:14 Labs: Abnormal Lab Results - Last 24 Hours (Table) 01/12/21 01/12/21 01/12/21 Range/Units 06:14 06:14 06:14 WBC 13.4 H (3.8-10.6) k/uL Neutrophils # 11.8 H (1.3-7.7) k/uL APTT 20.7 L (22.0-30.0) sec Glucose 114 H (74-99) mg/dL
--- NOTE | 2021-01-12 17:58 | P.PN ---
Progress Note - Text Progress Note Date: 01/12/21 Pt s/e in Pre Op area. All risks and benefits discussed again as well as instructions. She is ready and wiling to proceed. Consent confirmed and signed. Site marked. Pt ready to proceed.
[2021-01-12] MEDS ORDERED: TRANEXAMIC ACID 1,000 MG/10 ML VIAL IRRIGATION ONE (17:59)
[2021-01-12] MEDS ORDERED: TRANEXAMIC ACID 1,000 MG in SODIUM CHLORIDE 0.9% 100 ML IVPB PRN (18:07)
[2021-01-12] MEDS ORDERED: .fentaNYL (PF) 50 MCG/ML AMP ONE (18:21)
[2021-01-12] MEDS ORDERED: PROPOFOL 10 MG/ML 20 ML VIAL IV ONE (18:21)
[2021-01-12] MEDS ORDERED: SODIUM CHLORIDE 0.9% 100 ML BAG ONE (18:21)
[2021-01-12] MEDS ORDERED: TRANEXAMIC ACID 1,000 MG/10 ML VIAL ONE (18:21)
[2021-01-12] MEDS ORDERED: MIDAZOLAM 2 MG/2 ML VIAL ONE (18:21)
[2021-01-12] MEDS ORDERED: SODIUM CHLORIDE 0.9% 1,000 ML IV ONE (18:26)
[2021-01-12] MEDS ORDERED: ceFAZolin 1,000 MG in SODIUM CHLORIDE 0.9% 1,000 ML IRRIGATION ONE (19:02)
[2021-01-12] MEDS ORDERED: LACTATED RINGERS 1,000 ML IV ONE (19:35)
[2021-01-12] MEDS ORDERED: HYDROcodone/APAP 5-325MG 1 EACH TAB PO PRN (19:45)
[2021-01-12 21:18] LABS: Basophils % (A) 0 %; Eosinophils % (A) 0 %; HCT 36.5 % (34.0-46.0); HGB 12.2 gm/dL (11.4-16.0); Lymphocytes # (A) 1.1 k/uL (1.0-4.8); Lymphocytes % (A) 10 %; MCH 30.2 pg (25.0-35.0); MCHC 33.4 g/dL (31.0-37.0); MCV 90.4 fL (80.0-100.0); Mean Platelet Volume 7.3; Monocytes # (A) 0.6 k/uL (0-1.0); Monocytes % (A) 5 %; Neutrophils # (A) 8.8 k/uL (1.3-7.7); Neutrophils % (A) 83 %; Platelet Count 234 k/uL (150-450); RBC 4.04 m/uL (3.80-5.40); RDW 12.4 % (11.5-15.5); WBC 10.6 k/uL (3.8-10.6)
--- NOTE | 2021-01-12 21:49 | P.PN ---
Progress Note - Text Progress Note Date: 01/12/21 Brief post op Pt s/e in PACU she is doing very well. Awake alert and stable. VSS at this time. She is ready to go to the floor. She c/o no pain at this time.
[2021-01-12] MEDS: PANTOPRAZOLE 40 MG/10 ML VIAL IV SCH (21:52)
[2021-01-12] MEDS: SENNOSIDES-DOCUSATE SODIUM 1 EACH TAB PO SCH (21:57)
--- NOTE | 2021-01-12 23:45 | XR ---
EXAMINATION TYPE: XR Hip Complete LT DATE OF EXAM: 01/12/2021 COMPARISON: NONE HISTORY: Hip surgery TECHNIQUE: 8 views FINDINGS: 38 seconds of fluoroscopy time and 8 fluoroscopic images were obtained. There is intramedul ashley luiza and transverse screws fixing the intertrochanteric fracture of the left femur. No complicati ng process seen. IMPRESSION: Satisfactory internal fixation of the left femoral fracture.
[2021-01-13] MEDS: HYDROcodone/APAP 7.5-325MG 1 EACH TAB PO PRN ×4 (00:21→21:22)
[2021-01-13] MEDS: LORazepam 1 MG TAB PO SCH ×2 (00:23→21:22)
[2021-01-13] MEDS: HYDROmorphone 0.5 MG/0.5 ML SYRINGE IVP PRN (02:44)
[2021-01-13] MEDS: SODIUM CHLORIDE 0.9% 1,000 ML IV SCH ×2 (02:54→18:01)
--- NOTE | 2021-01-13 07:43 | FL ---
Fluoroscopy INDICATION: Pain FINDINGS: Fluoroscopy time: 38 seconds. Images obtained: 0. IMPRESSIONS: 1. Documentation of fluoroscopy.
--- NOTE | 2021-01-13 08:04 | P.OP ---
Date of Procedure: 01/12/21 Preoperative Diagnosis: 1. Lt hip IT fracture, 2 part, non displaced 2. s/p ffs Postoperative Diagnosis: 1. Lt hip IT fracture, 2 part, non displaced 2. s/p ffs Procedure(s) Performed: 1. Lt hip IMN fixation Implants: S&N Intertan 180 x 130 deg 100 mm lag 95 mm compression Anesthesia: GETA Surgeon: Javier Hassan [employer] Commissioner #1: Js Griffin (Was present for the entire case and necessary) Estimated Blood Loss (ml): 50 IV fluids (ml): 500 Urine output (ml): 50 Pathology: none sent Condition: stable Disposition: PACU Indications for Procedure: 70 yo female sustained a ffs at home from in her bedroom. She had immediate pain and extreme difficulty with ambulation. She presented to the ED then and was found to have an IT fracture, non displaced on the Lt. We discussed all surgical and non surgical options and she was ready and willing to proceed with surgical fixation of this hip. She denies any f/c/sob/cp or BHT LOC with the fall. She deneis any other injuries at this time. Description of Procedure: The patient was seen and examined in the preoperative area. All preoperative protocols were followed. Informed consent was obtained risks and benefits of the procedure were discussed at length. Risks including bleeding infection damage to the surrounding tissue and risk of reoperation were discussed with the patient. Risk of anesthesia up to and including was a discussed with the patient. These are outlined in the risk reviewed. They were willing to accept these risks and all of the risks of surgery. The patient was given a weight- based dose of antibiotics in the form of 2 g Ancef. The patient was seen and evaluated by the anesthesia team who deemed them fit for surgery. The site was marked, the patient was willing to proceed with the procedure. The patient was transferred to the operative suite by the Department of anesthesia. There were then drifted off to sleep by the department of anesthesia and spinal with sedation anesthesia was used. Once adequate anesthesia had been obtained the patient was carefully transferred to the operative bed. All bony prominences were padded accordingly. SCDs were placed on the nonoperative lower extremities. Arms were well padded. Patient's feet were then placed in Ariadna boots and she was transferred to the Ariadna table the peg was placed and the patient was secured to the table. Her right arm was placed on arm board left femoral space across her body and well- padded she secured to the table with tape and a safety strap. The right lower extremity was then scissored and dropped down while the left lower extremity was placed in traction and internal rotation and abduction. We performed preoperative x-rays to confirm hip as well as good reduction of the fracture. Preoperative briefing was done with the operative team and everyone was ready for the procedure to start. The patients left lower extremity was then prepped and draped in the normal sterile fashion. Timeout was then performed and all parties in agreement with the procedure to be performed. Incision was made to simmers proximal greater trochanter blunt dissection taken down through the fascia to the tip the greater trochanter which was then palpated we then under AP and lateral fluoroscopy placed an awl and confirmed it to being good starting position once in good starting position we tapped the awl to enter the femoral canal and then advanced it under AP and lateral fluoroscopy. Once it was in good position ball-tipped guidewire was passed through the awl was confirmed to be in bone. We then used the opening reamer over the ball-tipped guidewire to open the proximal portion of the femur. We then sequentially reamed the proximal course of the femur from 9 mm to 13 mm for placement of the nail. The nail was then placed over the ball-tipped guidewire and impacted into position once it was in good position and confirmed in AP and lateral fluoroscopy the ball-tipped guidewire was removed. We then placed the outrigger jig for the lag screw skin incision was made in the proper position over the lateral aspect femur blunt dissection taken down to the tensor fascia which was split longitudinally and the bone was then cleaned with a ortega elevator. Jig was secured to the side of the femur pin was placed center center within the head and neck of the femur within 10 mm of subchondral bone on AP and lateral fluoroscopy. We then drilled for the compression screw to 95 mm as there is 100 mm lag screw that was measured. We then placed the spatula and drilled over the guidewire for 100 mm lag screw. This was then placed. We then placed a 95 mm compression screw. No compression was needed to the fracture as it was essentially nondisplaced. We then locked the nail proximally. We then placed a distal locking screw in the static hole through the outrigger jig this was drilled measured and then placed. We then removed the outrigger jig and targeting jig and took final images showing hardware in good position with good reduction of fracture. Copiously irrigated with normal sterile saline fascial layers were closed with 0 Vicryl. Deep subcu tissues closed with 0 Vicryl superficial subcu tissue closed with 2-0 Vicryl and skin closed with erica. The wound edges approximated very well the wounds were then cleaned with alcohol and dressed sterilely with Adaptic 4 x 4's and foam tape. The patient was then transferred back to their hospital bed. There were awakened by department of anesthesia having tolerated the procedure very well with no complications. The patient was then transported to the postoperative care unit in stable condition.
[2021-01-13] MEDS: SERTRALINE 50 MG TAB PO SCH (08:12)
[2021-01-13] MEDS: ENOXAPARIN 30 MG/0.3 ML SYRINGE SQ SCH ×2 (08:12→21:22)
[2021-01-13] MEDS: PANTOPRAZOLE 40 MG/10 ML VIAL IV SCH (08:12)
[2021-01-13] MEDS: ONDANSETRON 4 MG/2 ML VIAL IVP PRN (10:41)
--- NOTE | 2021-01-13 11:40 | P.PN ---
Subjective Progress Note Date: 01/13/21 Principal diagnosis: Left hip intertrochanteric fracture, nondisplaced Patient was seen at bedside this morning resting comfortably sitting up in chair. Patient says she got up with physical therapy and moved from bed to chair. Patient says she really had no pain when doing this. Patient says currently she is not having very much in her hip. Patient says she is not had bowel movement, however, patient says she has been passing gas. Patient says she has been using incentive spirometer. Patient says she does not have a walker at home. Patient did talk with medicine about potentially doing inpatient rehab. patient would like to try and go home if she is able to and sa ys she has/will try contact her family members to help her out for the first several days. Patient denies chest pain, fever, shortness breath, nausea, vomiting, change in vision, loss of bowel/bladder control. Objective - Vital Signs Vital signs: Vital Signs Temp 98.7 F 01/13/21 07:45 Pulse 99 01/13/21 08:13 Resp 17 01/13/21 08:13 BP 138/79 01/13/21 07:45 Pulse Ox 95 01/13/21 07:45 Intake & Output 01/12/21 01/13/21 01/13/21 18:59 06:59 18:59 Intake Total 500 51 Output Total 300 Balance 500 -249 Weight 72.575 kg 72.575 kg Intake: IV 500 51 Output: Urine 200 Estimated Blood Loss 100 - Exam Inspection: 4x4's and tegaderm in well place. Incision is clan, dry, intact. Nicole in good place/well aligned. There is no evidence of ecchymosis, erythema, open fractures on left leg. Sensation: Sensation is equal, symmetric, bilaterally intact throughout. Palpation: There is moderate tenderness to left hip on palpation over incision sites. Nontender to palpation throughout rest exam Range of motion: Patient is able to flex and extend digits in left foot and flex and extend at left knee. Left hip ROM limited due to pain. Patient has full range of motion in bilateral UE and RLE Motor: Right leg - 5/5 in resisted hip flexion/extension, knee flexion/extension, plantar flexion/dorsiflexion the right ankle; 5/5 in resisted elbow flexion/extension, wrist flexion/extension, shoulder abduction, internal/external rotation of the bilateral UE. Left leg motor exams severely limited due to patient's pain. 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 DP pulses intact, bilaterally, 2+. Special tests: Negative Homans bilaterally; - Labs CBC & Chem 7: 01/12/21 20:41 01/12/21 06:14 Labs: Abnormal Lab Results - Last 24 Hours (Table) 01/12/21 Range/Units 20:41 Neutrophils # 8.8 H (1.3-7.7) k/uL Assessment and Plan Assessment: 1. Left hip intertrochanteric fracture, nondisplaced Postoperative day 1 status post left hip intramedullary nail Plan: 1. Left hip intertrochanteric fracture, nondisplaced - surgery performed yesterday, , 01/12/2021 - left hip intramedullary nail. Patient stable at bedside today. 2. Appreciate medical management - Dr. Charles consulted for potential inpatient rehab. Patient would like to go home if possible 3. Pain management - Tylenol; [place]; dilaudid if needed 4. DVT prophylaxis - Lovenox 5. GI prophylaxis - senna 6. PT/OT - weightbearing as tolerated left leg with walker and assistance. 7. Encourage incentive spirometer use 8. Discharge planning - plan discharge home tomorrow, Saturday vs Saturday with health services vs inpatient rehab. Time with Patient: Less than 30
--- NOTE | 2021-01-13 12:05 | P.PN ---
Subjective Progress Note Date: 01/13/21 HISTORY OF PRESENT ILLNESS This is a 70-year-old female patient of Dr. Castañeda with past medical history of sciatic breast cancer with lumpectomy and radiation in 2017, hypertension, hyperlipidemia, osteopenia. Patient is seen today in the emergency center waiting for a bed on the [facility] floor. Patient gives history that she had some friends visiting and she had 2 beers in the afternoon followed by 4-5 beers in the evening. She went to bed and then she needed to get up to the bathroom and jumped up it's thought that she caught her foot on the edge of the bed and fell around midnight. She thinks that she blacked out and she does not remember the fall. She states she normally drinks about 2-3 beers 2 times per week. She denies having any head injury. She did have significant left hip pain and could not get up. EMS was called and patient was brought into the emergency center for further evaluation. Patient was found to be afebrile, heart rate 60, blood pressure 126/76, pulse ox 96% on room air. WBC 13.4, hemoglobin 13.6, platelet count 299. INR 0.9. Electrolytes and renal function are normal with creatinine of 0.55. Liver function tests are normal. Coronavirus PCR not detected. Chest x-ray revealed no acute cardiopulmonary process. X-ray revealed osteoarthritis CAT scan of the left hip revealed hairline intertrochanteric fracture of the left femur. Osteoarthritis of the left hip joint. 01/13: Patient is seen today sitting up in a recliner. Patient is status post left hip IM fixation. Patient is well controlled. She denies having any chest pain, shortness of breath, lightheadedness or dizziness. No nausea or vomiting. Patient is minimal swelling to the area. She is currently on Lovenox for DVT prophylaxis. Incentive spirometry added. REVIEW OF SYSTEMS Constitutional: No fever, no chills, no night sweats. No weight change. No weakness, fatigue or lethargy. No daytime sleepiness. EENT: No headache. No blurred vision or double vision, no loss of vision. No loss of Hearing, no ringing in the ears, no dizziness. No nasal drainage or congestion. No epistaxis. No sore throat. Lungs: No shortness of breath, cough, no sputum production. No wheezing. Cardiovascular: No chest pain, no lower extremity edema. No palpitations. No paroxysmal nocturnal dyspnea. No orthopnea. No lightheadedness or dizziness. No syncopal episodes. Abdominal: No abdominal pain. No nausea, vomiting. No diarrhea. No constipation. No bloody or tarry stools. No loss of appetite. Genitourinary: No dysuria, increased frequency, urgency. No urinary retention. Musculoskeletal: No myalgias. No muscle weakness, no gait dysfunction, no frequent falls. No back pain. No neck pain. Left hip discomfort controlled. Integumentary: No wounds, no lesions. No rash or pruritus. No unusual bruising. No change in hair or nails. Neurologic: No aphasia. No facial droop. No change in mentation. No head injury. No headache. No paralysis. No paresthesia. Psychiatric: No depression. No anxiety. No mood swings. Endocrine: No abnormal blood sugars. No weight change. No excessive sweating or thirst. No cold intolerance. PHYSICAL EXAMINATION Gen: This is a 70-year-old female. Patient is resting on the ER stretcher and appears to be fairly comfortable. HEENT: Head is atraumatic, normocephalic. Pupils equal, round. Sclerae is anicteric. NECK: Supple. No JVD. No lymphadenopathy. No thyromegaly. LUNGS: Clear to auscultation. No wheezes or rhonchi. No intercostal retr actions. HEART: Regular rate and rhythm. No murmur. ABDOMEN: Soft. Bowel sounds are present. No masses. No tenderness. EXTREMITIES: No pedal edema. No calf tenderness. Left hip minimal swelling. NEUROLOGICAL: Patient is awake, alert and oriented x3. Cranial nerves 2 through 12 are grossly intact. ASSESSMENT AND PLAN 1. Left intertrochanteric fracture of the femur status post left hip IM fixation 01/12. Continue pain management, therapies per orthopedics. Continue incentive spirometry to reduce incidence of atelectasis and hospital-acquired pneumonia. DVT prophylaxis per orthopedics. Consult added for Dr. Charles for possible inpatient rehab 2. History of hypertension, patient not currently on medication. 3. History of hyperlipidemia. Patient is not currently on statin. 4. Osteopenia. 5. Recurrent depression and generalized anxiety disorder. Continue lorazepam 1 mg at bedtime, Zoloft 150 mg daily. 6. GI prophylaxis. Protonix. 7. COVID-19 testing negative. Patient has been hospitalized during a pandemic. DISCHARGE PLAN To be determined. Possible inpatient rehab. Impression and plan of care have been directed as dictated by the signing physician. Rosaura Mack nurse practitioner acting as scribe for signing physician. Objective - Vital Signs Vital signs: Vital Signs Temp 98.7 F 01/13/21 07:45 Pulse 99 01/13/21 08:13 Resp 17 01/13/21 08:13 BP 138/79 01/13/21 07:45 Pulse Ox 95 01/13/21 07:45 Intake & Output 01/12/21 01/13/21 01/13/21 18:59 06:59 18:59 Intake Total 500 51 Output Total 300 Balance 500 -249 Weight 72.575 kg 72.575 kg Intake: IV 500 51 Output: Urine 200 Estimated Blood Loss 100 - Labs CBC & Chem 7: 01/12/21 20:41 01/12/21 06:14 Labs: Abnormal Lab Results - Last 24 Hours (Table) 01/12/21 Range/Units 20:41 Neutrophils # 8.8 H (1.3-7.7) k/uL
--- NOTE | 2021-01-13 12:12 | P.CONS ---
History of Present Illness - Chief Complaint Walking difficulty - History of Present Illness I had the opportunity to see patient for rehab consultation with regard to walking difficulty. She was admitted to [facility] January 12 history of fall after approximately 8 or 9 beers in left hip pain. X-ray demonstrated only osteoarthritis. Hips EGD demonstrated hairline IT fracture. Evaluated by Dr. Peggy Anthony and did undergo IM nail date of admission. Seen by medically by Dr. Prado. No chest x-ray negative and a follow-up hip x-ray was done. PT and OT prescribed. Previous functional history as elicited from patient: 70-year-old right-handed white female who lives in one floor home on and off with her significant other. Patient retired. Describes independent with own cooking, laundry, driving, standing shower and gait generally without device. Occasional near standard cane when hip or knee accident. PCP Dr. Castañeda. Denies tobacco. Review of Systems Review of systems: ENT: Denies sneezes or discharge. Eyes: Denies discharge or photophobia. Cardiac: Denies chest pain or palpitation. Pulmonary: Denies cough or shortness of breath. Breast: Denies discharge or lumps. Gastrointestinal: Denies nausea, emesis, constipation, diarrhea. Genitourinary: Denies discharge or frequency. Musculoskeletal: Left hip discomfort with movement. Neurologic: Denies motor or sensory change. Endocrine: Denies shakes or sweats. Oncology: Denies cancers. Dermatologic: Denies rash, itching, pruritus. ALLERGY/immunology: Denies sneezes, rashes. Past Medical History Past Medical History: Cancer, Eye Disorder, GERD/Reflux, Hyperlipidemia, Hypertension, Pneumonia Additional Past Medical History / Comment(s): R breast cancer with lumpectomy and radiation 2016, osteopenia, vertigo at times, dry eyes bilatera lly,hypotensive episode 01/22/19. 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 Cervical dysplasia 1988. History of Any Multi-Drug Resistant Organisms: None Reported Past Surgical History: Breast Surgery, Tonsillectomy Additional Past Surgical History / Comment(s): 1989 R breast excisional biopsy, benign cyst removed from R breast, 2017 R breast lumpectomy, D&C, cervical conization 1988, colonoscopy 2001. Past Anesthesia/Blood Transfusion Reactions: No Reported Reaction Additional Past Anesthesia/Blood Transfusion Reaction / Comm: "Sensitivity to anesthesia" Past Psychological History: Anxiety, Depression Smoking Status: Former smoker Past Alcohol Use History: Occasional Past Drug Use History: None Reported - Past Family History Father Family Medical History: Cancer Additional Family Medical History / Comment(s): Father at age 74 from colon cancer. Mother Family Medical History: Deep Vein Thrombosis (DVT) Additional Family Medical History / Comment(s): Mother had back problems and scoliosis and at age 89. Brother(s) Additional Family Medical History / Comment(s): Patient has 1 brother with no major medical problems. Patient does not have any sisters. Patient has 1 son. Medications and Allergies Home Medications Medication Instructions Recorded Confirmed Type LORazepam [Ativan] 1 mg PO HS 01/12/21 01/12/21 History Sertraline [Zoloft] 150 mg PO DAILY 01/12/21 01/12/21 History Allergies Allergy/AdvReac Type Severity Reaction Status Date / Time No Known Allergies Allergy Verified 01/12/21 07:20 Physical Exam Vitals: Vital Signs Temp Pulse Pulse Pulse Resp BP BP 01/13/21 08:13 99 17 01/13/21 07:45 98.7 F 92 18 138/79 01/13/21 02:00 98.5 F 99 17 157/71 01/12/21 23:03 94 146/76 01/12/21 22:48 99 145/76 01/12/21 22:33 99 153/75 01/12/21 22:18 90 137/77 01/12/21 22:03 86 155/77 01/12/21 21:48 88 160/71 01/12/21 21:33 84 172/77 01/12/21 21:20 17 01/12/21 21:18 98.9 F 90 169/78 01/12/21 20:35 75 16 138/77 01/12/21 20:20 75 16 136/63 01/12/21 20:05 94 16 132/62 01/12/21 19:51 99.0 F 86 16 124/58 01/12/21 17:41 96 20 162/92 01/12/21 14:37 89 18 162/95 Pulse Ox 01/13/21 08:13 01/13/21 07:45 95 01/13/21 02:00 95 01/12/21 23:03 92 L 01/12/21 22:48 92 L 01/12/21 22:33 01/12/21 22:18 01/12/21 22:03 95 01/12/21 21:48 95 01/12/21 21:33 97 01/12/21 21:20 01/12/21 21:18 97 01/12/21 20:35 97 01/12/21 20:20 97 01/12/21 20:05 97 01/12/21 19:51 97 01/12/21 17:41 96 01/12/21 14:37 98 Intake and Output 01/12/21 01/13/21 01/13/21 22:59 06:59 14:59 Intake Total 551 Output Total 100 200 Balance 451 -200 Intake: IV 551 Output: Urine 200 Estimated Blood Loss 100 Other: Weight 72.575 kg Skin: Good color, texture, turgor. General: Medium build and comfortable appearance. Appears younger than stated age. Head: Normocephalic, atraumatic. Eyes: Symmetric. Pupils equal round. Ears: Symmetric. Hearing within normal limits. Mouth: Clear. Neck: Supple. Carotid without bruit. Cardiac: Regular rate and rhythm. Lungs: Clear anteriorly and posteriorly. Abdomen: Soft active nontender. Extremities: Normal tone. Clean and bandaged laterally. Neurological: Mental status: Alert, cooperative, pleasant. Cranial nerves: Symmetric facial tone and trapezius. Motor: Normal strength and isolation both arms. Active movement both legs but less than antigravity, left more so than right, 2 left hip discomfort. Sensation: Intact throughout. DTRs: Symmetric and equal throughout. Mobility: To don attempt to sit or stand as patient just operated on last night.. Results CBC & Chem 7: 01/12/21 20:41 01/12/21 06:14 Labs: Abnormal Lab Results - Last 24 Hours (Table) 01/12/21 Range/Units 20:41 Neutrophils # 8.8 H (1.3-7.7) k/uL Assessment and Plan (1) Alcohol intoxication Current Visit: Yes Status: Acute Code(s): F10.929 - ALCOHOL USE, UNSPECIFIED WITH INTOXICATION, UNSPECIFIED SNOMED Code(s): 73885637 (2) Intertrochanteric fracture of left femur Current Visit: Yes Status: Acute Code(s): S72.142A - DISPLACED INTERTROCHANTERIC FRACTURE OF LEFT FEMUR, INIT SNOMED Code(s): 997969640 Plan: Comments and plan: At this time PT and OT are prescribed. Follow therapies with yourself. We'll review patient's progress, Saturday a.m. I suspect this patient will do well. Note that she is anticipating return home with support services and this appears to be a likely result.
[2021-01-13] MEDS: SENNOSIDES-DOCUSATE SODIUM 1 EACH TAB PO SCH (21:21)
[2021-01-14] MEDS ORDERED: PANTOPRAZOLE 40 MG TABLET PO SCH (07:30)
[2021-01-14 08:03] VITALS: BP 164/71; PULSE 103; RESP 18; TEMP 98.6
[2021-01-14] MEDS: ENOXAPARIN 30 MG/0.3 ML SYRINGE SQ SCH (08:44)
[2021-01-14] MEDS: SERTRALINE 50 MG TAB PO SCH (08:45)
--- NOTE | 2021-01-14 10:09 | P.PN ---
Subjective Progress Note Date: 01/14/21 Principal diagnosis: Left hip intertrochanteric fracture, nondisplaced Patient was seen at bedside this morning walking around the room using walker. Patient did not have much difficulty navigating around the room with her walker. Patient says she really does not have much pain at all in the surgically repaired left hip. Patient does have a walker to go home with. Patient says she is not had bowel movement, however, patient says she has been passing gas. Patient says she has been using incentive spirometer. Patient denies chest pain, fever, shortness breath, nausea, vomiting, change in vision, loss of bowel/bladder control. Objective - Vital Signs Vital signs: Vital Signs Temp 98.6 F 01/14/21 08:00 Pulse 103 H 01/14/21 08:00 Resp 18 01/14/21 08:00 BP 164/71 01/14/21 08:00 Pulse Ox 93 L 01/14/21 08:00 Intake & Output 01/13/21 01/14/21 01/14/21 18:59 06:59 18:59 Output Total 1100 Balance -1100 Output: Urine 1100 Other: Voiding Method Toilet # Voids 1 2 - Exam Inspection: 4x4's and tegaderm in well place. Incision is intact. Minimal serous drainage along proximal incision. [place] in good place/well aligned. There is no evidence of erythema, open fractures on left leg. Negative for fluctuanc e/purulence. Sensation: Sensation is equal, symmetric, bilaterally intact throughout. Palpation: There is moderate tenderness to left hip on palpation over incision sites. Nontender to palpation throughout rest exam Range of motion: Patient is able to flex and extend digits in left foot and flex and extend at left knee. Left hip ROM limited due to pain. Patient has full range of motion in bilateral UE and RLE Motor: Right leg - 5/5 in resisted hip flexion/extension, knee flexion/extension, plantar flexion/dorsiflexion the right ankle; 5/5 in resisted elbow flexion/extension, wrist flexion/extension, shoulder abduction, internal/external rotation of the bilateral UE. Left leg motor exams limited due to patient's pain. Hardboard Supervisor strength 4/5 in bilateral UE Neurovascular: Refill under 3 seconds bilaterally in upper extremity digits. DP pulses intact, bilaterally, 2+. Special tests: Negative Hom[place] bilaterally; - Labs CBC & Chem 7: 01/12/21 20:41 01/12/21 06:14 Assessment and Plan Assessment: 1. Left hip intertrochanteric fracture, nondisplaced Postoperative day 2 status post left hip intramedullary nail Plan: 1. Left hip intertrochanteric fracture, nondisplaced - surgery performed , 01/12/2021 - left hip intramedullary nail. Patient stable at bedside today. Plan discharge home today with health services 2. Appreciate medical management 3. Pain management - Tylenol; [place]; same patient home with [place] 7.5 mg/325 mg 4. DVT prophylaxis - Lovenox in hospital; sending home with Aspirin 325 mg daily x 21 days 5. GI prophylaxis - senna; sending home with Colace 6. PT/OT - weightbearing as tolerated left leg with walker 7. Encourage incentive spirometer use 8. Discharge planning - discharge home today with health services Time with Patient: Less than 30
[2021-01-14] MEDS ORDERED: lisinopriL 10 MG TAB PO SCH (10:15)
--- NOTE | 2021-01-14 10:32 | P.DS ---
Providers Date of admission: 01/12/21 05:46 Expected date of discharge: 01/14/21 Attending physician: Yash Bennett Consults: 01/13/21 09:52 Consult Physician Routine Consulting Provider: Yoanna Prado Consult Reason/Comments: medical management Do you want consulting provider notified?: Already Contacted Consult Physician Routine Consulting Provider: Nestor Charles Consult Reason/Comments: IP rehab Do you want consulting provider notified?: Yes Primary care physician: Gamaliel Castañeda Va Hospital Course: Date of admission: 01/12/2021 Date of discharge: 01/14/2021 Admission diagnosis: Left hip intertrochanteric fracture, nondisplaced Discharge diagnosis: Same Attending physician: Dr. Hassan Surgical procedures: Left hip intramedullary nail Brief history: Patient is a 70-year-old female with a history of left hip intertrochanteric fracture nondisplaced status post fall. At this point patient has failed conservative treatment measures and has opted to proceed with a elective left hip intramedullary nail. Hospital course: Details of patient's surgery can be found in operative report. Patient tolerated the procedure well and was subsequently transported to orthopedic floor. Patient's orthopeidc and medical care was provided daily. Patient had daily laboratory tests performed for evaluation of overall blood c ounts. Patient had daily physical therapy to include strengthening range of motion as well as education with walker ambulation. Patient was treated with Lovenox for their postoperative DVT prophylaxis during their inpatient stay. Patient was noted to have a relatively uneventful postoperative course. Patient reported satisfactory pain control with oral pain medications by postoperative day 2. Patient showed satisfactory progress with physical therapy. Patient moved steadily through the program and had no difficulty meeting the goals by postoperative day 2. Given patient's otherwise satisfactory course and having met physical therapy goals, plan is to discharge patient home on postoperative day 2. Discharge condition/disposition: Patient will be discharged home in stable condition. Discharge medications: Instructions are given on resumption of patient's normal daily medications per primary care recommendation, in addition patient will be prescribed [place] 7.5 mg/25 mg; Senna; aspirin 325 mg daily 21 days. Discharge instructions: 1. Wound care and infection precautions, keep incision dry and covered while showering, no lotions, creams, moisturizers. No soaking, tubs, pools, hottubs. Do not scrub over the incision. 2. Weight-bear as tolerated with walker / cane until follow-up. 3. Ice when necessary. Do not exceed 20 minutes per hour with ice pack. 4. Visiting nursing care. 5. Home physical therapy. 6. Pain meds and anticoagulants per prescription. 7. Pain medication has potential to cause constipation. Increase oral fluid and fiber intake. Contact primary care provider if you have not had a bowel movement within 48 hours after discharge 8. No anti-inflammatory medication until discussed at first post operative visit, this including Motrin, Aleve, Mobic, Diclofenac. 9. Follow up in office at [address] Hassan 10. Follow up with your primary care doctor 7-10 days after discharge. 11. Contact [facility] with any questions, . Keep incision clean, dry, intact while at home. While showering, cover incision with Saran wrap. Medications: [place] 7.5 mg/25 mg; Senna; aspirin 325 mg daily 21 days Assessment: Left hip intertrochanteric fracture, nondisplaced Procedures: Left hip intramedullary nail Patient Condition at Discharge: Good Plan - Discharge Summary Discharge Rx Participant: No New Discharge Prescriptions: New Sennosides-Docusate Sodium [Senokot-S] 2 each PO HS tab Aspirin 325 mg PO DAILY #21 tab HYDROcodone/APAP 7.5-325MG [[place] 7.5] 1 each PO Q6HR PRN #28 tab PRN Reason: Pain lisinopriL [Zestril] 10 mg PO DAILY #30 tab Continue LORazepam [Ativan] 1 mg PO HS Sertraline [Zoloft] 150 mg PO DAILY Discharge Medication List LORazepam [Ativan] 1 mg PO HS 01/12/21 [History] Sertraline [Zoloft] 150 mg PO DAILY 01/12/21 [History] Aspirin 325 mg PO DAILY #21 tab 01/14/21 [Rx] HYDROcodone/APAP 7.5-325MG [[place] 7.5] 1 each PO Q6HR PRN #28 tab 01/14/21 [Rx] Sennosides-Docusate Sodium [Senokot-S] 2 each PO HS tab 01/14/21 [Rx] lisinopriL [Zestril] 10 mg PO DAILY #30 tab 01/14/21 [Rx] Follow up Appointment(s)/Referral(s): [facility], [NON-STAFF] - ([facility] will call you to schedule your home care visits. ) Gamaliel Castañeda DO [Primary Care Provider] - 1-2 days Patient Instructions/Handouts: Hip Pain (ED) Activity/Diet/Wound Care/Special Instructions: Discharge instructions: 1. Wound care and infection precautions, keep incision dry and covered while showering, no lotions, creams, moisturizers. No soaking, tubs, pools, hottubs. Do not scrub over the incision. 2. Weight-bear as tolerated with walker / cane until follow-up. 3. Ice when necessary. Do not exceed 20 minutes per hour with ice pack. 4. Visiting nursing care. 5. Home physical therapy. 6. Pain meds and anticoagulants per prescription. 7. Pain medication has potential to cause constipation. Increase oral fluid and fiber intake. Contact primary care provider if you have not had a bowel movement within 48 hours after discharge 8. No anti-inflammatory medication until discussed at first post operative visit, this including Motrin, Aleve, Mobic, Diclofenac. 9. Follow up in office at [address] Hassan 10. Follow up with your primary care doctor 7-10 days after discharge. 11. Contact [facility] with any questions, . Keep incision clean, dry, intact while at home. While showering, cover incision with Saran wrap. Medications: [place] 7.5 mg/25 mg; Colace; aspirin 325 mg daily 21 days . Please return to the Emergency Department if symptoms worsen or any other elliot rns. Recommend Tylenol and/or ibuprofen for any discomfort, may apply ice to the left hip. If symptoms persist without improvement, follow up with your primary care physician or orthopedics. Patient requires a bedside commode because she will be room confined due to her hip fracture. Discharge Disposition: HOME WITH HOME HEALTH SERVICES
[2021-01-14] MEDS: HYDROcodone/APAP 7.5-325MG 1 EACH TAB PO PRN (11:47)
--- NOTE | 2021-01-14 13:39 | P.PN ---
Subjective Progress Note Date: 01/14/21 HISTORY OF PRESENT ILLNESS This is a 70-year-old female patient of Dr. Castañeda with past medical history of sciatic breast cancer with lumpectomy and radiation in 2017, hypertension, hyperlipidemia, osteopenia. Patient is seen today in the emergency center waiting for a bed on the [facility] floor. Patient gives history that she had some friends visiting and she had 2 beers in the afternoon followed by 4-5 beers in the evening. She went to bed and then she needed to get up to the bathroom and jumped up it's thought that she caught her foot on the edge of the bed and fell around midnight. She thinks that she blacked out and she does not remember the fall. She states she normally drinks about 2-3 beers 2 times per week. She denies having any head injury. She did have significant left hip pain and could not get up. EMS was called and patient was brought into the emergency center for further evaluation. Patient was found to be afebrile, heart rate 60, blood pressure 126/76, pulse ox 96% on room air. WBC 13.4, hemoglobin 13.6, platelet count 299. INR 0.9. Electrolytes and renal function are normal with creatinine of 0.55. Liver function tests are normal. Coronavirus PCR not detected. Chest x-ray revealed no acute cardiopulmonary process. X-ray revealed osteoarthritis CAT scan of the left hip revealed hairline intertrochanteric fracture of the left femur. Osteoarthritis of the left hip joint. 01/13: Patient is seen today sitting up in a recliner. Patient is status post left hip IM fixation. Patient is well controlled. She denies having any chest pain, shortness of breath, lightheadedness or dizziness. No nausea or vomiting. Patient is minimal swelling to the area. She is currently on Lovenox for DVT prophylaxis. Incentive spirometry added. 01/14: Patient is seen today in follow-up. She is doing well with physical therapy and did stairs today as well. Dr. Pate's and is in the room and he is planning for discharge today. Medication reconciliation has been reviewed. Patient's blood pressure has been running on the higher side for which lisinopril added and prescription sent to her pharmacy. She's been afebrile, heart rate 103, blood pressure 164/71, pulse ox 93% on room air. REVIEW OF SYSTEMS Constitutional: No fever, no chills, no night sweats. No weight change. No weakness, fatigue or lethargy. No daytime sleepiness. EENT: No headache. No blurred vision or double vision, no loss of vision. No loss of Hearing, no ringing in the ears, no dizziness. No nasal drainage or congestion. No epistaxis. No sore throat. Lungs: No shortness of breath, cough, no sputum production. No wheezing. Cardiovascular: No chest pain, no lower extremity edema. No palpitations. No paroxysmal nocturnal dyspnea. No orthopnea. No lightheadedness or dizziness. No syncopal episodes. Abdominal: No abdominal pain. No nausea, vomiting. No diarrhea. No constipation. No bloody or tarry stools. No loss of appetite. Genitourinary: No dysuria, increased frequency, urgency. No urinary retention. Musculoskeletal: No myalgias. No muscle weakness, no gait dysfunction, no frequent falls. No back pain. No neck pain. Left hip discomfort controlled. Integumentary: No wounds, no lesions. No rash or pruritus. No unusual bruising. No change in hair or nails. Neurologic: No aphasia. No facial droop. No change in mentation. No head injury. No headache. No paralysis. No paresthesia. Psychiatric: No depression. No anxiety. No mood swings. Endocrine: No abnormal blood sugars. No weight change. PHYSICAL EXAMINATION Gen: This is a 70-year-old female. Patient is resting on on recliner and appears to be comfortable. HEENT: Head is atraumatic, normocephalic. Pupils equal, round. Sclerae is anicteric. NECK: Supple. No JVD. No lymphadenopathy. No thyromegaly. LUNGS: Clear to auscultation. No wheezes or rhonchi. No intercostal retractions. HEART: Regular rate and rhythm. No murmur. ABDOMEN: Soft. Bowel sounds are present. No masses. No tenderness. EXTREMITIES: No pedal edema. No calf tenderness. Left hip minimal swelling. NEUROLOGICAL: Patient is awake, alert and oriented x3. Cranial nerves 2 through 12 are grossly intact. ASSESSMENT AND PLAN 1. Left intertrochanteric fracture of the femur status post left hip IM fixation 01/12. Continue pain management, therapies per orthopedics. Continue incentive spirometry to reduce incidence of atelectasis and hospital-acquired pneumonia. DVT prophylaxis per orthopedics. Consult added for Dr. Charles for possible inpatient rehab 2. History of hypertension, patient not currently on medication. Added lisinopril 10 mg daily. 3. History of hyperlipidemia. Patient is not currently on statin. 4. Osteopenia. 5. Recurrent depression and generalized anxiety disorder. Continue lorazepam 1 mg at bedtime, Zoloft 150 mg daily. 6. GI prophylaxis. Protonix. 7. COVID-19 testing negative. Patient has been hospitalized during a pandemic. DISCHARGE PLAN home with home care. Impression and plan of care have been directed as dictated by the signing physician. Rosaura Mack nurse practitioner acting as scribe for signing physician. Objective - Vital Signs Vital signs: Vital Signs Temp 98.6 F 01/14/21 08:00 Pulse 103 H 01/14/21 08:00 Resp 18 01/14/21 08:00 BP 164/71 01/14/21 08:00 Pulse Ox 93 L 01/14/21 08:00 Intake & Output 01/13/21 01/14/21 01/14/21 18:59 06:59 18:59 Output Total 1100 Balance -1100 Output: Urine 1100 Other: Voiding Method Toilet # Voids 1 2 - Labs CBC & Chem 7: 01/12/21 20:41 01/12/21 06:14
== END 2021-01-14 13:17 | disposition home health service (06) | DRG 481 ==
LOC: EC 00:28 → 4SSUR 05:46
PROVIDERS: ADMIT Orthopaedic Surgery; ATTEND Orthopaedic Surgery
PROC: 0QS736Z Reposition Left Upper Femur with Intramedullary Internal Fixation Device, Percutaneous Approach (ICD-10-PCS; principal; 2021-01-12 11:25)
DX: S72.142A Displaced intertrochanteric fracture of left femur, initial encounter for closed fracture (principal); F33.9 Major depressive disorder, recurrent, unspecified; S09.90XA Unspecified injury of head, initial encounter; E78.5 Hyperlipidemia, unspecified; F10.129 Alcohol abuse with intoxication, unspecified; F41.1 Generalized anxiety disorder; I10 Essential (primary) hypertension; M16.12 Unilateral primary osteoarthritis, left hip; M85.80 Other specified disorders of bone density and structure, unspecified site; W01.0XXA Fall on same level from slipping, tripping and stumbling without subsequent striking against object, initial encounter; Y92.009 Unspecified place in unspecified non-institutional (private) residence as the place of occurrence of the external cause; Z20.822 Contact with and (suspected) exposure to COVID-19; Z79.899 Other long term (current) drug therapy; Z80.0 Family history of malignant neoplasm of digestive organs; Z85.3 Personal history of malignant neoplasm of breast; Z92.3 Personal history of irradiation; Z87.891 Personal history of nicotine dependence; Z87.410 Personal history of cervical dysplasia; K21.9 Gastro-esophageal reflux disease without esophagitis
CPT/HCPCS: 71045; 73502; 80053; 85025; 85610; 85730; 87635; 96372; 96374; 99285

== ENCOUNTER 2021-05-07 07:09 | Emergency (ER) | payer MEDICARE, BC ==
[2021-05-07 07:20] VITALS: BP 179/114; PULSE 114; RESP 18; TEMP 98
[2021-05-07] MEDS ORDERED: LORazepam 2 MG/ML INJ IV STA (07:36)
--- NOTE | 2021-05-07 07:40 | ED ---
General Adult HPI - General Chief complaint: Chest Pain Stated complaint: CHI Time Seen by Provider: 05/07/21 07:23 Source: patient Mode of arrival: ambulatory Limitations: no limitations - History of Present Illness Initial comments: Dictation was produced using [employer] dictation software. please excuse any grammatical, word or spelling errors. Chief Complaint: 70-year-old female past medical history of hypertension, dyslipidemia presents to the emergency room for shortness of breath and chest pressure History of Present Illness: Patient is 70-year-old female she presents that she has some tightness in her chest. She states that she is having difficulty taking a deep breath. Her symptoms have been ongoing for a week. She came to the emergency department earlier however left prior to being evaluated. Patient denies any nausea vomiting diarrhea. Patient states the pain is nonradiating. Not associated with diaphoresis. She does have some shortness of breath. Patient has a history of anxiety. She's not sure if her symptoms reflect anxiety. Patient has a history of blood clots. She does have a history of right-sided breast cancer status post lumpectomy and radiation The ROS documented in this emergency department record has been reviewed and confirmed by me. Those systems with pertinent positive or negative responses have been documented in the HPI. All other systems are other negative and/or noncontributory. PHYSICAL EXAM: General Impression: Alert and oriented x3, not in acute distress HEENT: Normocephalic atraumatic, extra-ocular movements intact, pupils equal and reactive to light bilaterally, mucous membranes moist. Cardiovascular: Heart regular rate and rhythm Chest: Able to complete full sentences, no retractions, no tachypnea Abdomen: abdomen soft, non-tender, non-distended, no organomegaly Musculoskeletal: Pulses present and equal in all extremities, no peripheral edema Motor: no focal deficits noted Neurological: CN II-XII grossly intact, no focal motor or sensory deficits noted Skin: Intact with no visualized rashes Psych: Anxious ED course: 70-year-old anxious-appearing female presents emergency department for chest tightness shortness of breath as upon arrival shows heart rate of 114, rest of vital signs within acceptable limits. EKG shows sinus tachycardia with a rate of 106. EKG appears to be comparable to EKG from January 2019. Chart review shows that she had a cardiac catheterization at that time that showed a normal coronary artery angiogram. There appeared to be mid LAD 10% lesion. EKG interpretation: Ventricular rate 106, sinus tachycardia,. 172, QTc 5, QTC 395. There does appear to be ST depressions in V3 to V5 that have been present since 01/22/2019. Laboratory evaluation obtained. CBC, coag panel is unremarkable. Metabolic panel shows slight hypokalemia of 3.2. Troponin and d-dimer negative. Chest x- ray is unremarkable. Patient was observed in emergency department for 2 hours. Reevaluated bedside at 9:15 AM. Disposition options were discussed. Patient told that her potassium is low and that she would benefit from increase potassium intake through her diet. It is recommended to her to stay for a second troponin 3 hours after her first to rule out acute coronary syndrome. Patient refuses in preferred to be discharged. At this point she is stable she wants to follow-up with primary care doctor. Return precautions discussed. - Related Data Home Medications Medication Instructions Recorded Confirmed LORazepam [Ativan] 1 mg PO HS 01/12/21 01/12/21 Sertraline [Zoloft] 150 mg PO DAILY 01/12/21 01/12/21 Previous Rx's Medication Instructions Recorded Aspirin 325 mg PO DAILY #21 tab 01/14/21 HYDROcodone/APAP 7.5-325MG [[place] 1 each PO Q6HR PRN #28 tab 01/14/21 7.5] Sennosides-Docusate Sodium 2 each PO HS tab 01/14/21 [Senokot-S] lisinopriL [Zestril] 10 mg PO DAILY #30 tab 01/14/21 Allergies Allergy/AdvReac Type Severity Reaction Status Date / Time No Known Allergies Allergy Verified 05/07/21 07:16 Review of Systems ROS Statement: Those systems with pertinent positive or pertinent negative responses have been documented in the HPI. ROS Other: All systems not noted in ROS Statement are negative. Past Medical History Past Medical History: Cancer, Eye Disorder, GERD/Reflux, Hyperlipidemia, Hypertension, Pneumonia Additional Past Medical History / Comment(s): R breast cancer with lumpectomy and radiation 2016, osteopenia, vertigo at times, dry eyes bilaterally,hypotensive episode 01/22/19. 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 Cervical dysplasia 1988. History of Any Multi-Drug Resistant Organisms: None Reported Past Surgical History: Breast Surgery, Tonsillectomy Additional Past Surgical History / Comment(s): 1989 R breast excisional biopsy, benign cyst removed from R breast, 2017 R breast lumpectomy, D&C, cervical conization 1988, colonoscopy 2001. Past Anesthesia/Blood Transfusion Reactions: No Reported Reaction Additional Past Anesthesia/Blood Transfusion Reaction / Comment(s): "Sensitivity to anesthesia" Past Psychological History: Anxiety, Depression Smoking Status: Former smoker Past Alcohol Use History: Occasional Past Drug Use History: None Reported - Past Family History Father Family Medical History: Cancer Additional Family Medical History / Comment(s): Father at age 74 from colon cancer. Mother Family Medical History: Deep Vein Thrombosis (DVT) Additional Family Medical History / Comment(s): Mother had back problems and scoliosis and at age 89. Brother(s) Additional Family Medical History / Comment(s): Patient has 1 brother with no major medical problems. Patient does not have any sisters. Patient has 1 son. General Exam Limitations: no limitations Course Vital Signs 05/07/21 07:16 Temperature 98 F Pulse Rate 114 H Respiratory 18 Rate Blood Pressure 179/114 O2 Sat by Pulse 99 Oximetry Medical Decision Making - Lab Data Result diagrams: 05/07/21 07:50 05/07/21 07:50 Lab Results 05/07/21 05/07/21 05/07/21 Range/Units 07:50 07:50 07:50 WBC 6.7 (3.8-10.6) k/uL RBC 5.45 H (3.80-5.40) m/uL Hgb 15.9 (11.4-16.0) gm/dL Hct 49.7 H (34.0-46.0) % MCV 91.2 (80.0-100.0) fL MCH 29.3 (25.0-35.0) pg MCHC 32.1 (31.0-37.0) g/dL RDW 12.8 (11.5-15.5) % Plt Count 338 (150-450) k/uL MPV 6.9 Neutrophils % 64 % Lymphocytes % 25 % Monocytes % 7 % Eosinophils % 2 % Basophils % 1 % Neutrophils # 4.3 (1.3-7.7) k/uL Lymphocytes # 1.7 (1.0-4.8) k/uL Monocytes # 0.5 (0-1.0) k/uL Eosinophils # 0.1 (0-0.7) k/uL Basophils # 0.1 (0-0.2) k/uL PT 10.7 (9.0-12.0) sec INR 1.0 (<1.2) APTT 23.6 (22.0-30.0) sec D-Dimer 0.30 (<0.60) mg/L FEU Sodium 137 (137-145) mmol/L Potassium 3.2 L (3.5-5.1) mmol/L Chloride 103 (98-107) mmol/L Carbon Dioxide 20 L (22-30) mmol/L Anion Gap 14 mmol/L BUN 13 (7-17) mg/dL Creatinine 0.72 (0.52-1.04) mg/dL Est GFR (CKD-EPI)AfAm >90 (>60 ml/min/1.73 sqM) Est GFR (CKD-EPI)NonAf 87 (>60 ml/min/1.73 sqM) Glucose 105 H (74-99) mg/dL Calcium 10.0 (8.4-10.2) mg/dL Magnesium 2.0 (1.6-2.3) mg/dL Troponin I (0.000-0.034) ng/mL 05/07/21 Range/Units 07:50 WBC (3.8-10.6) k/uL RBC (3.80-5.40) m/uL Hgb (11.4-16.0) gm/dL Hct (34.0-46.0) % MCV (80.0-100.0) fL MCH (25.0-35.0) pg MCHC (31.0-37.0) g/dL RDW (11.5-15.5) % Plt Count (150-450) k/uL MPV Neutrophils % % Lymphocytes % % Monocytes % % Eosinophils % % Basophils % % Neutrophils # (1.3-7.7) k/uL Lymphocytes # (1.0-4.8) k/uL Monocytes # (0-1.0) k/uL Eosinophils # (0-0.7) k/uL Basophils # (0-0.2) k/uL PT (9.0-12.0) sec INR (<1.2) APTT (22.0-30.0) sec D-Dimer (<0.60) mg/L FEU Sodium (137-145) mmol/L Potassium (3.5-5.1) mmol/L Chloride (98-107) mmol/L Carbon Dioxide (22-30) mmol/L Anion Gap mmol/L BUN (7-17) mg/dL Creatinine (0.52-1.04) mg/dL Est GFR (CKD-EPI)AfAm (>60 ml/min/1.73 sqM) Est GFR (CKD-EPI)NonAf (>60 ml/min/1.73 sqM) Glucose (74-99) mg/dL Calcium (8.4-10.2) mg/dL Magnesium (1.6-2.3) mg/dL Troponin I <0.012 (0.000-0.034) ng/mL Disposition Clinical Impression: Chest pain Disposition: HOME SELF-CARE Condition: Fair Instructions (If sedation given, give patient instructions): Chest Pain (ED), Hypokalemia (ED) Is patient prescribed a controlled substance at d/c from ED?: No Referrals: Gamaliel Castañeda DO [Primary Care Provider] - 1-2 days
[2021-05-07 08:01] LABS: Basophils # (A) 0.1 k/uL (0-0.2); Basophils % (A) 1 %; Eosinophils # (A) 0.1 k/uL (0-0.7); Eosinophils % (A) 2 %; HCT 49.7 % (34.0-46.0); HGB 15.9 gm/dL (11.4-16.0); Lymphocytes # (A) 1.7 k/uL (1.0-4.8); Lymphocytes % (A) 25 %; MCH 29.3 pg (25.0-35.0); MCHC 32.1 g/dL (31.0-37.0); MCV 91.2 fL (80.0-100.0); Mean Platelet Volume 6.9; Monocytes # (A) 0.5 k/uL (0-1.0); Monocytes % (A) 7 %; Neutrophils # (A) 4.3 k/uL (1.3-7.7); Neutrophils % (A) 64 %; Platelet Count 338 k/uL (150-450); RBC 5.45 m/uL (3.80-5.40); RDW 12.8 % (11.5-15.5); WBC 6.7 k/uL (3.8-10.6)
--- NOTE | 2021-05-07 08:06 | XR ---
EXAMINATION TYPE: XR chest 1V portable DATE OF EXAM: 05/07/2021 COMPARISON: 01/12/2021 INDICATION: Chest pain TECHNIQUE: Single frontal view of the chest is obtained. FINDINGS: The heart size is normal. The pulmonary vasculature is normal. The lungs are clear. IMPRESSION: 1. No acute pulmonary process.
[2021-05-07 08:19] LABS: Partial Thromboplastin Time 23.6 sec (22.0-30.0); Prothrombin Time 10.7 sec (9.0-12.0)
[2021-05-07 08:28] LABS: African American GFR (CKD) >90 (>60 ml/min/1.73 sqM); Anion Gap 14 mmol/L; Blood Urea Nitrogen 13 mg/dL (7-17); Carbon Dioxide 20 mmol/L (22-30); Chloride 103 mmol/L (98-107); Glucose 105 mg/dL (74-99); Non-African American GFR(CKD) 87 (>60 ml/min/1.73 sqM); Sodium 137 mmol/L (137-145)
[2021-05-07 08:35] LABS: Potassium 3.2 mmol/L (3.5-5.1)
== END 2021-05-07 09:26 | disposition home or self-care (01) ==
LOC: EC 07:09
DX: R07.89 Other chest pain (principal); I10 Essential (primary) hypertension; K21.9 Gastro-esophageal reflux disease without esophagitis; E78.5 Hyperlipidemia, unspecified; F32.A Depression, unspecified; F41.9 Anxiety disorder, unspecified; Z87.891 Personal history of nicotine dependence; Z79.82 Long term (current) use of aspirin; Z79.899 Other long term (current) drug therapy
CPT/HCPCS: 36415; 71045; 80048; 83735; 84484; 85025; 85379; 85610; 85730; 93005; 99285

== ENCOUNTER 2021-05-07 17:52 | Emergency (ER) | payer MEDICARE, BC ==
[2021-05-07 18:14] VITALS: RESP 18
--- NOTE | 2021-05-07 20:30 | ED ---
General Adult HPI - General Chief complaint: Anxiety Stated complaint: Chest Tightness Time Seen by Provider: 05/07/21 19:17 Source: patient, RN notes reviewed Mode of arrival: ambulatory Limitations: no limitations - History of Present Illness Initial comments: 70-year-old female presents to the emergency department for evaluation of diffuse chest tightness accompanied by shortness of breath. States symptoms resolved prior to arrival, but have been intermittent for the past week. Patient states she has had occasional episodes of dizziness and has a mild headache at this time. Patient states she was here earlier today for the same complaint. Reports having blood work, chest x-ray, and an EKG done, but then chose to leave when she became anxious. When asked about her anxiety, patient states she is afraid she is going to be locked up in this facility. States she was admitted to the psychiatric unit previously and was unable to leave. Denies having any thoughts of causing harm to herself or anyone else. States she is able to care for herself properly and is scheduled to see her PCP in the morning. Denies fever, chills, neck pain, abdominal pain, nausea, vomiting, diarrhea, dysuria, or hematuria - Related Data Home Medications Medication Instructions Recorded Confirmed LORazepam [Ativan] 1 mg PO HS 01/12/21 05/08/21 Sertraline [Zoloft] 150 mg PO DAILY 01/12/21 05/08/21 busPIRone HCL 5 mg PO W/SUPPER 05/08/21 05/08/21 Allergies Allergy/AdvReac Type Severity Reaction Status Date / Time No Known Allergies Allergy Verified 05/08/21 11:03 Review of Systems ROS Statement: Those systems with pertinent positive or pertinent negative responses have been documented in the HPI. ROS Other: All systems not noted in ROS Statement are negative. Past Medical History Past Medical History: Cancer, Eye Disorder, GERD/Reflux, Hyperlipidemia, Hypertension, Pneumonia Additional Past Medical History / Comment(s): R breast cancer with lumpectomy and radiation 2016, osteopenia, vertigo at times, dry eyes bilaterally,hypotensive episode 01/22/19. 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 Cervical dysplasia 1988. History of Any Multi-Drug Resistant Organisms: None Reported Past Surgical History: Breast Surgery, Tonsillectomy Additional Past Surgical History / Comment(s): 1989 R breast excisional biopsy, benign cyst removed from R breast, 2017 R breast lumpectomy, D&C, cervical conization 1988, colonoscopy 2001. Past Anesthesia/Blood Transfusion Reactions: No Reported Reaction Additional Past Anesthesia/Blood Transfusion Reaction / Comment(s): "Sensitivity to anesthesia" Past Psychological History: Anxiety, Depression Smoking Status: Former smoker Past Alcohol Use History: Occasional Past Drug Use History: None Reported - Past Family History Father Family Medical History: Cancer Additional Family Medical History / Comment(s): Father at age 74 from colon cancer. Mother Family Medical History: Deep Vein Thrombosis (DVT) Additional Family Medical History / Comment(s): Mother had back problems and scoliosis and at age 89. Brother(s) Additional Family Medical History / Comment(s): Patient has 1 brother with no major medical problems. Patient does not have any sisters. Patient has 1 son. General Exam Limitations: no limitations General appearance: alert, anxious (Well-developed, well-nourished female in no acute distress. Patient is anxious. Temperature 98.0, pulse 59, respirations 18, blood pressure 184/85, pulse ox 98% on room air.) Head exam: Present: atraumatic, normocephalic, normal inspection ENT exam: Present: normal exam, mucous membranes moist Neck exam: Present: normal inspection. Absent: tenderness, meningismus, lymphadenopathy Respiratory exam: Present: normal lung sounds bilaterally. Absent: respiratory distress, wheezes, rales, rhonchi, stridor Cardiovascular Exam: Present: regular rate, normal rhythm, normal heart sounds. Absent: systolic murmur, diastolic murmur, rubs, gallop, clicks GI/Abdominal exam: Present: soft, normal bowel sounds. 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 Patient is wanting reassurance that she is able to leave at any time if she decides to discontinue care. She requests not to have an IV inserted and is declining any medications for her headache. Discussed laboratory studies via vena puncture, however patient is uncertain at this time and is asking for additional time to evaluate this. When attempting to explore sources of her anxiety, patient states she knows that there is security outside her room and she does not believe that they will allow her to proceed to her vehicle. I explained that patient would not be hindered from leaving as long as she was not a danger to herself or anyone else, nor exhibiting any psychotic behavior patterns. Did request that if she wanted to leave that she sign out AMA. 05/07/21 21:00 Upon reevaluation, the patient continues to be anxious and demonstrates some paranoid behaviors regarding her concerns that she will not be allowed to leave. She continues to be uncomfortable with idea of any further medical treatment. Offered her a meal and patient was agreeable to this. Requested a urine sample patient; she will attempt to provide this. I intend to involve mental health when patient is medically cleared. 05/07/21 22:30 Patient is medically cleared at this time. I did discuss with her having a mental health assessment she is agreeable with this plan. She continues to feel anxious and somewhat short of breath though declines any further workup. I suspect her shortness of breath is related to her persistent anxiety and have discussed this with the patient. 05/08/21 00:00 Patient has been seen by ANATOLIY Stratton. She will speak with the psychiatrist but intends to safety plan with patient. Also spoke with her son after patient gave permission. Medical Decision Making - Medical Decision Making 70-year-old female with a past medical history of anxiety, depression, and hypertension presents to the emergency department for evaluation of shortness of breath. This is her second visit of the day. Patient did leave earlier today after having had a chest x-ray, blood work, and EKG done at that time. She subsequently went home and took Ativan, then returned for reevaluation. Upon exam, patient is very anxious. She declines IV, cardiac monitoring, and repeat chest x-ray. She was offered Tylenol for her headache, but declines any medications. Patient was provided with a meal tray and was agreeable to speaking with mental health. Urinalysis was unremarkable. Physical exam findings were unremarkable with the exception of paranoid discourse. She does not have any thoughts of causing harm to herself or anyone else. She is able to care for herself and it attentive to her health needs. Mental health evaluated patient and has safety contracted with her; also spoke with her son as well. Patient is scheduled to see her PCP at 1430 today for medication revaluation. Patient will be discharged home with strict return par ameters. She verbalizes readiness for discharge and is escorted to her vehicle in a manner consistent with her desire. Attending: Erika. - Lab Data Lab Results 05/07/21 05/07/21 Range/Units 21:42 21:42 Urine Color Light Yellow Urine Appearance Clear (Clear) Urine pH 5.5 (5.0-8.0) Ur Specific [place] 1.005 (1.001-1.035) Urine Protein Negative (Negative) Urine Glucose (UA) Negative (Negative) Urine Ketones Negative (Negative) Urine Blood Negative (Negative) Urine Nitrite Negative (Negative) Urine Bilirubin Negative (Negative) Urine Urobilinogen <2.0 (<2.0) mg/dL Ur Leukocyte Esterase Trace H (Negative) Urine RBC <1 (0-5) /hpf Urine WBC 6 H (0-5) /hpf Urine Opiates Screen Not Detected (NotDetected) Ur Oxycodone Screen Not Detected (NotDetected) Urine Methadone Screen Not Detected (NotDetected) Ur Propoxyphene Screen Not Detected (NotDetected) Ur Barbiturates Screen Not Detected (NotDetected) U Tricyclic Antidepress Not Detected (NotDetected) Ur Phencyclidine Scrn Not Detected (NotDetected) Ur Amphetamines Screen Not Detected (NotDetected) U Methamphetamines Scrn Not Detected (NotDetected) U Benzodiazepines Scrn Not Detected (NotDetected) Urine Cocaine Screen Not Detected (NotDetected) U Marijuana (THC) Screen Not Detected (NotDetected) - EKG Data EKG shows normal: sinus rhythm Rate: normal EKG Comments: EKG was obtained at 1909 showing sinus rhythm with possible right atrial enlargement, possible left atrial enlargement, ST deviation, and moderate T wave abnormalities. Ventricular rate 98, ND interval 178, QRS duration 89, QT/QTC 359/415. Interpretation abnormal ECG. Compared with previous EKGs with no significant change from baseline. Disposition Clinical Impression: Anxiety Disposition: HOME SELF-CARE Condition: Stable Instructions (If sedation given, give patient instructions): Generalized Anxiety Disorder (ED) Additional Instructions: Please adhere to your safety plan as discussed with Chayito and detailed in the copy you were provided with. Keep your appointment scheduled with Dr. Castañeda. Utilize your resources as necessary. If you develop thoughts of causing harm to herself or anyone else, please call 911 immediately. Please do not hesitate to return to the emergency department with any new, worsening, or concerning symptoms. Is patient prescribed a controlled substance at d/c from ED?: No Referrals: Gamaliel Castañeda DO [Primary Care Provider] - 1-2 days Time of Disposition: 00:29
[2021-05-07] MEDS ORDERED: ACETAMINOPHEN TAB 325 MG TAB PO STA (21:06)
[2021-05-07 22:13] LABS: Appearance,Urine Clear (Clear); Bilirubin,Urine Negative (Negative); Blood,Urine Negative (Negative); Color,Urine Light Yellow; Glucose,Urine (UA) Negative (Negative); Ketones,Urine Negative (Negative); Leukocyte Esterase,Urine Trace (Negative); Nitrite,Urine Negative (Negative); PH, Urine 5.5 (5.0-8.0); Protein,Urine Negative (Negative); RBC,Urine <1 /hpf (0-5); Specific Gravity,Urine 1.005 (1.001-1.035); Urobilinogen,Urine <2.0 mg/dL (<2.0); WBC,Urine 6 /hpf (0-5)
[2021-05-07 22:14] LABS: Amphetamine Screen,Urine Not Detected (NotDetected); Barbiturate Screen,Urine Not Detected (NotDetected); Benzodiazepines Screen,Urine Not Detected (NotDetected); Cocaine Screen,Urine Not Detected (NotDetected); Methadone Screen, Urine Not Detected (NotDetected); Opiate Screen,Urine Not Detected (NotDetected); Phencyclidine Screen,Urine Not Detected (NotDetected); Tricyclic Antidepressant,Urine Not Detected (NotDetected); Urn Cannabinoid Scrn Not Detected (NotDetected)
[2021-05-07 22:15] LABS: Oxycodone Screen, Urine Not Detected (NotDetected)
[2021-05-08 00:41] VITALS: BP 148/85; PULSE 62; TEMP 98.2
== END 2021-05-08 00:34 | disposition home or self-care (01) ==
LOC: EC 17:52
DX: F41.9 Anxiety disorder, unspecified (principal); K21.9 Gastro-esophageal reflux disease without esophagitis; E78.5 Hyperlipidemia, unspecified; I10 Essential (primary) hypertension; F32.A Depression, unspecified; Z85.3 Personal history of malignant neoplasm of breast; Z87.891 Personal history of nicotine dependence
CPT/HCPCS: 80306; 81001; 99285

== ENCOUNTER 2021-05-08 08:24 | Emergency (ER) | payer MEDICARE, BC ==
[2021-05-08] MEDS ORDERED: LORazepam 2 MG/ML INJ IV STA (08:50)
--- NOTE | 2021-05-08 08:56 | ED ---
General Adult HPI - General Chief complaint: Shortness of Breath Stated complaint: Revisit/[facility] Time Seen by Provider: 05/08/21 08:30 Source: patient, RN notes reviewed, old records reviewed Mode of arrival: ambulatory Limitations: no limitations - History of Present Illness Initial comments: Patient is a 70-year-old female who presents for the third time in one day complaining of dyspnea. She states "I feel like I cannot catch my breath or breathe." This has been going on for weeks. She does have a history of anxiety. She states she intermittently feels dizzy. Denies any chest pain. Denies any abdominal pain, nausea, vomiting. Is able to ambulate. Is to follow-up with her PCP today, however it isn't related today. States that she isn't sure what is causing her current symptoms. She received a full workup yesterday which was normal. She returns, and left after receiving Ativan. Denies any lower extremity swelling. Has no history of blood clots. Denies any cough, fevers, sick contacts. His no other acute complaints at this time. Remote history of tobacco use. No history of asthma or COPD. Presents with concern for her dyspnea. - Related Data Home Medications Medication Instructions Recorded Confirmed LORazepam [Ativan] 1 mg PO HS 01/12/21 05/08/21 Sertraline [Zoloft] 150 mg PO DAILY 01/12/21 05/08/21 busPIRone HCL 5 mg PO W/SUPPER 05/08/21 05/08/21 Allergies Allergy/AdvReac Type Severity Reaction Status Date / Time No Known Allergies Allergy Verified 05/08/21 11:03 Review of Systems ROS Statement: Those systems with pertinent positive or pertinent negative responses have been documented in the HPI. Review of Systems: CONST: Denies fever EYES: Denies blurry vision ENT: Denies nasal congestion C/V: Denies Chest pain RESP: Endorses dyspnea GI: Denies abdominal pain : Denies dysuria SKIN: Denies rash. MSK: Denies joint pain. NEURO: Denies headache PSYCH: Denies suicidal and homicidal ideations/plans/attempts. Denies visual or auditory hallucinations. ROS Other: All systems not noted in ROS Statement are negative. Past Medical History Past Medical History: Cancer, Eye Disorder, GERD/Reflux, Hyperlipidemia, Hypertension, Pneumonia Additional Past Medical History / Comment(s): R breast cancer with lumpectomy and radiation 2016, osteopenia, vertigo at times, dry eyes bilat erally,hypotensive episode 01/22/19. 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 Cervical dysplasia 1988. History of Any Multi-Drug Resistant Organisms: None Reported Past Surgical History: Breast Surgery, Tonsillectomy Additional Past Surgical History / Comment(s): 1989 R breast excisional biopsy, benign cyst removed from R breast, 2016 R breast lumpectomy, D&C, cervical conization 1988, colonoscopy 2001. Past Anesthesia/Blood Transfusion Reactions: No Reported Reaction Additional Past Anesthesia/Blood Transfusion Reaction / Comment(s): "Sensitivity to anesthesia" Past Psychological History: Anxiety, Depression Smoking Status: Former smoker Past Alcohol Use History: Occasional Past Drug Use History: None Reported - Past Family History Father Family Medical History: Cancer Additional Family Medical History / Comment(s): Father at age 74 from colon cancer. Mother Family Medical History: Deep Vein Thrombosis (DVT) Additional Family Medical History / Comment(s): Mother had back problems and scoliosis and at age 89. Brother(s) Additional Family Medical History / Comment(s): Patient has 1 brother with no major medical problems. Patient does not have any sisters. Patient has 1 son. General Exam - General Exam Comments Initial Comments: General: Appears anxious but otherwise in no acute distress. HEAD: Normal with no signs of head trauma. EYES: PERRLA, EOMI, conjunctiva normal, no discharge. Duples are 3 mm and equal bilaterally. ENT: Hearing grossly intact, normal oropharynx. RESPIRATORY: Clear breath sounds bilaterally. No wheezes, rales, or rhonchi. No increased work of breathing. No hypoxia. C/V: Mildly tachycardic with a regular rhythm. S1 and S2 auscultated. No peripheral edema. Peripheral pulses are 2+ and intact throughout. ABD: Abd is soft, nontender, nondistended EXT: Normal range of motion, no obvious deformity SKIN: No rashes or lesions observed on exposed skin. NEURO: Alert and oriented 4. No focal deficits. Limitations: no limitations Course Vital Signs 05/08/21 05/08/21 08:26 08:32 Temperature 96.5 F L Pulse Rate 115 H Respiratory 22 20 Rate Blood Pressure 148/92 O2 Sat by Pulse 99 Oximetry Medical Decision Making - Medical Decision Making Based on the patient's presentation and physical exam, I'm concerned for possible cardiopulmonary etiology for the patient. However yesterday, she did receive a complete workup including a d-dimer within normal limits, negative troponin, normal EKG, chest x-ray that is unremarkable. The remainder the workup was unremarkable. I did discuss this with the patient, and explained that it is unlikely that workup will show anything acute, however I did offer her a CT and repeat blood work which she initially accepted. Patient initially refused an IV after blood work was obtained. She states we do not think we aren't missing something, however states she isn't sure what is causing her shortness of breath. She seems to have severe anxiety time. She did consent to an IV after discussion. We will administer a dose of Ativan as well as medications to prevent contrast ALLERGIES she states she thinks she may be ALLERGIC. Patient now refuses contrast dye. She states she feel short of breath. She states she is ALLERGIC to contrast dye as well as the medication for preventing ALLERGIC reaction to contrast. She is refusing Ativan at this time. I discussed at length with the patient the concern for possible blood clot in her lung, but she refuses contrast dye at this time. I did explain that she did have a normal d-dimer yesterday and we can repeat that, when she was in agreement. She would like to CT done without contrast. We will repeat the d- dimer then, and obtain a CT without contrast. Patient was in agreement this plan. I did ultimately state that I believe EPS should evaluate the patient due to her severe anxiety, which she was also in agreement with at that time. Patient's laboratory studies again were within normal limits including a d-dimer within normal limits as well as a troponin. Remainder labs are unremarkable. CT imaging revealed no acute cardiopulmonary process, with multiple incidental findings of did not contribute to her current symptoms. EKG was obtained and showed no acute cardiopulmonary process. No acute ischemic changes. Reevaluation come patient is still having panic attacks and anxiety-like symptoms. We did discuss that this is likely the case, and she was in agreement that a complete workup was completed. She'll longer can follow-up with her PCP today, and therefore I did ask if she wanted to speak with the PS. She was in agreement. Patient is to be evaluated by EPS. I do not believe she is a danger to herself or others. Denies suicidal, homicidal ideations, attempts, plans. No hallucinations. Anxiety and panic symptoms have resolved. She is feeling improved. She would like to go home. I believe this is reasonable. She does have an appointment with her PCP now for tomorrow or the next day. I instructed the patient to follow up with their PCP in the next 1-2 days. I explained that the patient should return to the emergency department if they experience any worsening symptoms. Strict return precautions were discussed with the patient. The patient expressed understanding of these instructions. I answered all questions that the patient had. The patient was discharged home in good condition with their prescriptions and follow up information. - Lab Data Result diagrams: 05/08/21 08:58 05/08/21 08:58 Lab Results 05/08/21 05/08/21 05/08/21 Range/Units 08:58 08:58 08:58 WBC 5.5 (3.8-10.6) k/uL RBC 5.09 (3.80-5.40) m/uL Hgb 15.0 (11.4-16.0) gm/dL Hct 45.6 (34.0-46.0) % MCV 89.5 (80.0-100.0) fL MCH 29.4 (25.0-35.0) pg MCHC 32.8 (31.0-37.0) g/dL RDW 12.7 (11.5-15.5) % Plt Count 330 (150-450) k/uL MPV 7.0 Neutrophils % 60 % Lymphocytes % 30 % Monocytes % 6 % Eosinophils % 1 % Basophils % 1 % Neutrophils # 3.3 (1.3-7.7) k/uL Lymphocytes # 1.7 (1.0-4.8) k/uL Monocytes # 0.4 (0-1.0) k/uL Eosinophils # 0.1 (0-0.7) k/uL Basophils # 0.0 (0-0.2) k/uL PT 10.7 (9.0-12.0) sec INR 1.0 (<1.2) APTT 22.6 (22.0-30.0) sec D-Dimer (<0.60) mg/L FEU Sodium 138 (137-145) mmol/L Potassium 4.2 (3.5-5.1) mmol/L Chloride 106 (98-107) mmol/L Carbon Dioxide 19 L (22-30) mmol/L Anion Gap 13 mmol/L BUN 9 (7-17) mg/dL Creatinine 0.69 (0.52-1.04) mg/dL Est GFR (CKD-EPI)AfAm >90 (>60 ml/min/1.73 sqM) Est GFR (CKD-EPI)NonAf 89 (>60 ml/min/1.73 sqM) Glucose 181 H (74-99) mg/dL Calcium 9.8 (8.4-10.2) mg/dL Total Bilirubin 1.0 (0.2-1.3) mg/dL AST 48 H (14-36) U/L ALT 44 H (4-34) U/L Alkaline Phosphatase 88 (38-126) U/L Troponin I (0.000-0.034) ng/mL Total Protein 8.3 H (6.3-8.2) g/dL Albumin 4.7 (3.5-5.0) g/dL 05/08/21 05/08/21 Range/Units 08:58 09:20 WBC (3.8-10.6) k/uL RBC (3.80-5.40) m/uL Hgb (11.4-16.0) gm/dL Hct (34.0-46.0) % MCV (80.0-100.0) fL MCH (25.0-35.0) pg MCHC (31.0-37.0) g/dL RDW (11.5-15.5) % Plt Count (150-450) k/uL MPV Neutrophils % % Lymphocytes % % Monocytes % % Eosinophils % % Basophils % % Neutrophils # (1.3-7.7) k/uL Lymphocytes # (1.0-4.8) k/uL Monocytes # (0-1.0) k/uL Eosinophils # (0-0.7) k/uL Basophils # (0-0.2) k/uL PT (9.0-12.0) sec INR (<1.2) APTT (22.0-30.0) sec D-Dimer 0.28 (<0.60) mg/L FEU Sodium (137-145) mmol/L Potassium (3.5-5.1) mmol/L Chloride (98-107) mmol/L Carbon Dioxide (22-30) mmol/L Anion Gap mmol/L BUN (7-17) mg/dL Creatinine (0.52-1.04) mg/dL Est GFR (CKD-EPI)AfAm (>60 ml/min/1.73 sqM) Est GFR (CKD-EPI)NonAf (>60 ml/min/1.73 sqM) Glucose (74-99) mg/dL Calcium (8.4-10.2) mg/dL Total Bilirubin (0.2-1.3) mg/dL AST (14-36) U/L ALT (4-34) U/L Alkaline Phosphatase (38-126) U/L Troponin I 0.026 (0.000-0.034) ng/mL Total Protein (6.3-8.2) g/dL Albumin (3.5-5.0) g/dL - EKG Data -: EKG Interpreted by Me EKG Comments: 12-lead Electrocardiogram Interpretation Note EKG was reviewed and interpreted by myself. 12-lead ECG performed at 0902 to is interpreted by me as revealing normal sinus rhythm at a rate of 90 beats per minute. [place] is normal. WA interval is 171 ms, QRS duration is 81 ms, QTc is 419 ms.. There were no ST or T wave abnormalities to suggest myocardial ischemia or injury. R wave progression across the precordium was satisfactory. By my interpretation this EKG is non-diagnostic for acute ischemia. Critical Care Time Critical Care Time: Yes Total Critical Care Time: 35 Critical Care Time: Upon my evaluation, this patient had a high probability of imminent or life- threatening deterioration due to panic attack, anxiety, which required my direct attention, intervention, and personal management. I have personally provided 35 minutes of critical care time exclusive of time spent on separately billable procedures. Time includes review of laboratory data, radiology results, discussion with consultants, and monitoring for potential decompensation. Interventions were performed as documented in my note. Multiple re-evaluations of the patient, as well as discussion with the patient regarding her symptoms. Disposition Clinical Impression: Anxiety, Panic attack, Dyspnea Disposition: HOME SELF-CARE Condition: Good Instructions (If sedation given, give patient instructions): Panic Attack (ED) Is patient prescribed a controlled substance at d/c from ED?: No Referrals: Gamaliel Castañeda DO [Primary Care Provider] - 1-2 days
[2021-05-08] MEDS ORDERED: FAMOTIDINE 20 MG/2 ML VIAL IV STA (09:03)
[2021-05-08] MEDS ORDERED: methylPREDNISolone SOD SUCCI 125 MG/2 ML VIAL IV STA (09:03)
[2021-05-08] MEDS ORDERED: diphenhydrAMINE 50 MG/ML 1 ML VIAL IVP STA (09:03)
[2021-05-08] MEDS ORDERED: LORazepam 1 MG TAB PO STA ×2 (09:20→09:26)
[2021-05-08 09:26] LABS: Basophils % (A) 1 %; Eosinophils # (A) 0.1 k/uL (0-0.7); Eosinophils % (A) 1 %; HCT 45.6 % (34.0-46.0); Lymphocytes # (A) 1.7 k/uL (1.0-4.8); Lymphocytes % (A) 30 %; MCH 29.4 pg (25.0-35.0); MCHC 32.8 g/dL (31.0-37.0); MCV 89.5 fL (80.0-100.0); Monocytes # (A) 0.4 k/uL (0-1.0); Monocytes % (A) 6 %; Neutrophils # (A) 3.3 k/uL (1.3-7.7); Neutrophils % (A) 60 %; Platelet Count 330 k/uL (150-450); RBC 5.09 m/uL (3.80-5.40); RDW 12.7 % (11.5-15.5); WBC 5.5 k/uL (3.8-10.6)
[2021-05-08 09:34] LABS: Partial Thromboplastin Time 22.6 sec (22.0-30.0); Prothrombin Time 10.7 sec (9.0-12.0)
[2021-05-08 09:38] LABS: ALT 44 U/L (4-34); AST 48 U/L (14-36); African American GFR (CKD) >90 (>60 ml/min/1.73 sqM); Albumin 4.7 g/dL (3.5-5.0); Alkaline Phosphatase 88 U/L (38-126); Anion Gap 13 mmol/L; Blood Urea Nitrogen 9 mg/dL (7-17); Calcium 9.8 mg/dL (8.4-10.2); Carbon Dioxide 19 mmol/L (22-30); Chloride 106 mmol/L (98-107); Glucose 181 mg/dL (74-99); Non-African American GFR(CKD) 89 (>60 ml/min/1.73 sqM); Sodium 138 mmol/L (137-145); Total Protein 8.3 g/dL (6.3-8.2)
[2021-05-08 09:56] LABS: Potassium 4.2 mmol/L (3.5-5.1)
--- NOTE | 2021-05-08 10:39 | CT ---
EXAMINATION TYPE: CT chest wo con DATE OF EXAM: 05/08/2021 INDICATION: Dyspnea CT DLP: 249.4 mGy.cm Automated Exposure Control for Dose Reduction was Utilized. TECHNIQUE AND CONTRAST: CT scan of the chest without IV contrast administration. COMPARISON: No previous CT scan is available for comparison. FINDINGS: 2 mm lingular nodule with 3 mm faint groundglass nodule in the left lung base (image 59, series 204). A follow-up CT scan in 6 months can be considered for reassessment. Minimal linear atelectasis is se en in the anterior aspect of the lung bases bilaterally. Unremarkable lungs otherwise. Patent central airways. No pleural effusion. No gross cardiomegaly. Prominent cardiac apex, please correlate with echocardiographic results. Minim al pericardial fluid. Mild coronary and aortic atherosclerotic calcifications. No pathologically enla rged lymph nodes in the chest by this nonenhanced CT scan. Right axillary surgical clips versus calcification. Suspected right breast scar with calcification/roman rgical clips, please correlate with breast ultrasound/mammography results. Cholelithiasis yet the gal lbladder is not completely included in the scan. Left adrenal nodule measuring up to 16mm, incomplete ly identified by this CT scan. Further elective dedicated CT adrenal protocol can be considered. Large gastric fundus diverticulum measuring up to 6.4 cm. Possible tiny splenic cyst. Small pancreas. Fat containing lesion versus cortical defect of the upper pole of right kidney measuring up to 16mm. Degenerative changes of the thoracic spine. No gross aggressive bone lesion. Suspected right T8-9 di sc herniation, further MRI assessment can be considered if clinically required. IMPRESSION: No definite acute abnormality seen in the chest by this nonenhanced CT scan. Multiple incidental find ings and recommendations as detailed above.
[2021-05-08 12:58] VITALS: BP 136/75; PULSE 84; RESP 18; TEMP 97.8
== END 2021-05-08 12:58 | disposition home or self-care (01) ==
LOC: EC 08:24
DX: F41.0 Panic disorder [episodic paroxysmal anxiety] (principal); I10 Essential (primary) hypertension; E78.5 Hyperlipidemia, unspecified; F32.A Depression, unspecified; Z87.891 Personal history of nicotine dependence; Z79.899 Other long term (current) drug therapy
CPT/HCPCS: 36415; 71250; 80053; 84484; 85025; 85379; 85610; 85730; 93005; 99291

== ENCOUNTER 2021-05-13 01:16 | Emergency (ER) | payer MEDICARE, BC ==
[2021-05-13 01:36] VITALS: PULSE 91; RESP 16; TEMP 97.1
--- NOTE | 2021-05-13 05:47 | XR ---
EXAMINATION TYPE: XR chest 2V DATE OF EXAM: 05/13/2021 COMPARISON: NONE HISTORY: Short of breath TECHNIQUE: 2 views FINDINGS: Heart and mediastinum are normal. Lungs are clear. Diaphragm is normal. Bony thorax is inta ct. There clips over the right breast. There are chest leads. IMPRESSION: No active cardiopulmonary disease. Normal heart. No change
--- NOTE | 2021-05-13 06:09 | ED ---
SOB HPI - General Chief Complaint: Shortness of Breath Stated Complaint: SOB,Numbness in hands and feet Time Seen by Provider: 05/13/21 05:18 Source: patient Mode of arrival: ambulatory - History of Present Illness Initial Comments: This patient is a 70-year-old woman who is here to have evaluation for sensation that she can't take a deep breath in. The patient states that she is also having numbness and tingling to her bilateral fingers and toes. The patient does note that she has been to the hospital a number times for this complaint. 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 Patient denies fever or chills. She is not having a cough. No chest pain. No leg pain or swelling. No change in urination. No change in bowel movements. MD Complaint: shortness of breath -: days(s) Improves With: nothing Worsens With: nothing Associated Symptoms: parasthesias - Related Data Home Medications Medication Instructions Recorded Confirmed LORazepam [Ativan] 1 mg PO HS 01/12/21 05/08/21 Sertraline [Zoloft] 150 mg PO DAILY 01/12/21 05/08/21 busPIRone HCL 5 mg PO W/SUPPER 05/08/21 05/08/21 Previous Rx's Medication Instructions Recorded Albuterol Inhaler [Ventolin Hfa 1 puff INHALATION RT-TID PRN #8 gm 05/09/21 Inhaler] lisinopriL [Zestril] 5 mg PO DAILY #30 tab 05/09/21 Allergies Allergy/AdvReac Type Severity Reaction Status Date / Time No Known Allergies Allergy Verified 05/13/21 01:36 Review of Systems ROS Statement: Those systems with pertinent positive or pertinent negative responses have been documented in the HPI. ROS Other: All systems not noted in ROS Statement are negative. Constitutional: Denies: fever, chills Respiratory: Reports: dyspnea. Denies: cough, wheezes, hemoptysis Cardiovascular: Denies: chest pain, palpitations, edema Gastrointestinal: Denies: abdominal pain, vomiting, diarrhea Genitourinary: Denies: dysuria, hematuria Musculoskeletal: Denies: back pain Skin: Denies: rash Neurological: Reports: paresthesias. Denies: headache, weakness, numbness Past Medical History Past Medical History: Cancer, Eye Disorder, GERD/Reflux, Hyperlipidemia, Hypertension, Pneumonia Additional Past Medical History / Comment(s): R breast cancer with lumpectomy and radiation 2016, osteopenia, vertigo at times, dry eyes bilaterally,hypotensive episode 01/22/19. 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 Cervical dysplasia 1988. History of Any Multi-Drug Resistant Organisms: None Reported Past Surgical History: Breast Surgery, Tonsillectomy Additional Past Surgical History / Comment(s): 1989 R breast excisional biopsy, benign cyst removed from R breast, 2016 R breast lumpectomy, D&C, cervical conization 1988, colonoscopy 2001. Past Anesthesia/Blood Transfusion Reactions: No Reported Reaction Additional Past Anesthesia/Blood Transfusion Reaction / Comment(s): "Sensitivity to anesthesia" Past Psychological History: Anxiety, Depression Smoking Status: Former smoker Past Alcohol Use History: Occasional Past Drug Use History: None Reported - Past Family History Father Family Medical History: Cancer Additional Family Medical History / Comment(s): Father at age 74 from colon cancer. Mother Family Medical History: Deep Vein Thrombosis (DVT) Additional Family Medical History / Comment(s): Mother had back problems and scoliosis and at age 89. Brother(s) Additional Family Medical History / Comment(s): Patient has 1 brother with no major medical problems. Patient does not have any sisters. Patient has 1 son. General Exam General appearance: alert, in no apparent distress Head exam: Present: atraumatic, normocephalic Eye exam: Present: normal appearance. Absent: scleral icterus, conjunctival injection ENT exam: Present: normal oropharynx Neck exam: Present: normal inspection Respiratory exam: Present: normal lung sounds bilaterally. Absent: respiratory distress, wheezes, rales, rhonchi, stridor Cardiovascular Exam: Present: regular rate, normal rhythm, normal heart sounds. Absent: systolic murmur, diastolic murmur, rubs, gallop GI/Abdominal exam: Present: soft. Absent: distended, tenderness, guarding, rebound, rigid, mass Extremities exam: Present: normal inspection, normal capillary refill. Absent: pedal edema, calf tenderness Back exam: Present: normal inspection. Absent: CVA tenderness (R), CVA tenderness (L) Neurological exam: Present: alert Skin exam: Present: warm, dry, intact, normal color. Absent: rash Course Vital Signs 05/13/21 05/13/21 01:30 07:07 Temperature 97.1 F L 97.1 F L Pulse Rate 91 91 Respiratory 16 16 Rate Blood Pressure 145/86 129/50 O2 Sat by Pulse 98 100 Oximetry Disposition Clinical Impression: Dyspnea Disposition: HOME SELF-CARE Condition: Good Instructions (If sedation given, give patient instructions): Dyspnea (ED), Anxiety (ED) Is patient prescribed a controlled substance at d/c from ED?: No Referrals: Gamaliel Castañeda DO [Primary Care Provider] - 1-2 days Viral Briggs MD [STAFF PHYSICIAN] - 1-2 days Time of Disposition: 06:20
[2021-05-13 07:11] VITALS: BP 129/50
== END 2021-05-13 07:28 | disposition home or self-care (01) ==
LOC: EC 01:16
DX: R06.00 Dyspnea, unspecified (principal); I10 Essential (primary) hypertension; E78.5 Hyperlipidemia, unspecified; F32.A Depression, unspecified; F41.9 Anxiety disorder, unspecified; Z87.891 Personal history of nicotine dependence; Z79.899 Other long term (current) drug therapy
CPT/HCPCS: 71046; 99284

== ENCOUNTER 2021-05-13 11:18 | Emergency (ER) | payer MEDICARE, BC ==
[2021-05-13 11:23] VITALS: RESP 18; TEMP 97
[2021-05-13 12:44] VITALS: BP 137/69; PULSE 92
--- NOTE | 2021-05-13 12:48 | ED ---
General Adult HPI - General Chief complaint: Recheck/Abnormal Lab/Rx Stated complaint: Recheck Time Seen by Provider: 05/13/21 11:35 Source: patient Mode of arrival: ambulatory Limitations: no limitations - History of Present Illness Initial comments: Patient is a 70-year-old female who presents to the emergency department with a chief complaint of "feeling odd". Patient states she restarted a Zoloft prescription that she has not taken in several months. Patient took a full 100 mg tab and broke another pill in half for a total dose of 150 mg. She states she is prescribed 100 mg daily. Patient states that she has fell off since she took the medication. Patient was discharged this morning for shortness of breath. Chest x-ray was negative. Patient has been elevated here in the emergency department numerous times in the past couple months. Patient states she was initially anxious but is not anxious now. Patient has no other concerns at this time including fever, chills, headache, shortness of breath, cough, chest pain, abdominal pain, nausea, vomiting, diarrhea, and burning with urination. - Related Data Home Medications Medication Instructions Recorded Confirmed LORazepam [Ativan] 1 mg PO HS 01/12/21 05/08/21 Sertraline [Zoloft] 150 mg PO DAILY 01/12/21 05/08/21 busPIRone HCL 5 mg PO W/SUPPER 05/08/21 05/08/21 Previous Rx's Medication Instructions Recorded Albuterol Inhaler [Ventolin Hfa 1 puff INHALATION RT-TID PRN #8 gm 05/09/21 Inhaler] lisinopriL [Zestril] 5 mg PO DAILY #30 tab 05/09/21 Allergies Allergy/AdvReac Type Severity Reaction Status Date / Time No Known Allergies Allergy Verified 05/13/21 11:23 Review of Systems ROS Statement: Those systems with pertinent positive or pertinent negative responses have been documented in the HPI. ROS Other: All systems not noted in ROS Statement are negative. Past Medical History Past Medical History: Cancer, Eye Disorder, GERD/Reflux, Hyperlipidemia, Hypertension, Pneumonia Additional Past Medical History / Comment(s): R breast cancer with lumpectomy and radiation 2016, osteopenia, vertigo at times, dry eyes bilaterally,hypotensive episode 01/22/19. 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 Cervical dysplasia 1988. History of Any Multi-Drug Resistant Organisms: None Reported Past Surgical History: Breast Surgery, Tonsillectomy Additional Past Surgical History / Comment(s): 1989 R breast excisional biopsy, benign cyst removed from R breast, 2017 R breast lumpectomy, D&C, cervical conization 1988, colonoscopy 2001. Past Anesthesia/Blood Transfusion Reactions: No Reported Reaction Additional Past Anesthesia/Blood Transfusion Reaction / Comment(s): "Sensitivity to anesthesia" Past Psychological History: Anxiety, Depression Smoking Status: Former smoker Past Alcohol Use History: Occasional Past Drug Use History: None Reported - Past Family History Father Family Medical History: Cancer Additional Family Medical History / Comment(s): Father at age 74 from colon cancer. Mother Family Medical History: Deep Vein Thrombosis (DVT) Additional Family Medical History / Comment(s): Mother had back problems and scoliosis and at age 89. Brother(s) Additional Family Medical History / Comment(s): Patient has 1 brother with no major medical problems. Patient does not have any sisters. Patient has 1 son. General Exam Limitations: no limitations General appearance: alert, in no apparent distress Head exam: Present: atraumatic, normocephalic, normal inspection Eye exam: Present: normal appearance, PERRL, EOMI. Absent: scleral icterus, conjunctival injection, periorbital swelling Neck exam: Present: normal inspection, full ROM Respiratory exam: Present: normal lung sounds bilaterally. Absent: respiratory distress, wheezes, rales, rhonchi, stridor Cardiovascular Exam: Present: regular rate, normal rhythm, normal heart sounds. Absent: systolic murmur, diastolic murmur, rubs, gallop, clicks GI/Abdominal exam: Present: soft, normal bowel sounds. Absent: distended, tenderness, guarding, rebound, rigid Neurological exam: Present: alert, oriented X3, CN II-XII intact Psychiatric exam: Present: normal affect, normal mood Skin exam: Present: warm, dry, intact, normal color. Absent: rash Course Vital Signs 05/13/21 05/13/21 11:19 12:41 Temperature 97.0 F L Pulse Rate 101 H 92 Respiratory 18 18 Rate Blood Pressure 169/123 137/69 O2 Sat by Pulse 99 98 Oximetry Medical Decision Making - Medical Decision Making This is a 70-year-old who presents for evaluation after restarting her Zoloft prescription today. Thorough history and examination were performed. Patient looks well. She states she feels better. She denies anxiety. Patient has no shortness of breath or chest pain. Patient and I discussed the importance of routinely taking Zoloft as starting or stopping the medication abruptly can cause side effects. Patient encouraged to either take it daily or not take at all. Patient instructed to follow up at her previously scheduled appointment with her primary care provider. Return parameters discussed. Patient verbalizes understanding and is agreeable to plan. Dr. aLng is my attending. Disposition Clinical Impression: Anxiety Disposition: HOME SELF-CARE Condition: Good Instructions (If sedation given, give patient instructions): Anxiety (ED) Additional Instructions: Please take your Zoloft as directed if you choose to continue the medication. It is important you take the medication every day as randomly starting or stopping the medication can cause side effects. Follow up with your primary care provider at your previously scheduled appointment. Return to the emergency department if you experience new, concerning, or worsening symptoms. Is patient prescribed a controlled substance at d/c from ED?: No Referrals: Gamaliel Castañeda DO [Primary Care Provider] - 1-2 days Time of Disposition: 12:47
== END 2021-05-13 12:56 | disposition home or self-care (01) ==
LOC: EC 11:18
DX: F41.9 Anxiety disorder, unspecified (principal); I10 Essential (primary) hypertension; E78.5 Hyperlipidemia, unspecified; K21.9 Gastro-esophageal reflux disease without esophagitis; F32.A Depression, unspecified; Z87.891 Personal history of nicotine dependence; Z79.51 Long term (current) use of inhaled steroids; Z79.899 Other long term (current) drug therapy
CPT/HCPCS: 99283

== ENCOUNTER 2021-05-25 00:23 | Emergency (ER) | payer MEDICARE, BC ==
[2021-05-25 00:39] VITALS: BP 142/75; PULSE 84; RESP 16; TEMP 98
--- NOTE | 2021-05-25 01:28 | XR ---
EXAMINATION TYPE: XR chest 2V DATE OF EXAM: 05/25/2021 COMPARISON: 05/13/2021 HISTORY: Short of breath TECHNIQUE: 2 views FINDINGS: Heart and mediastinum appear normal. Lungs are clear of infiltrate. There are no hilar mass es. Costophrenic angles are clear. Bony thorax is intact. IMPRESSION: No active cardiopulmonary disease. No change.
== END 2021-05-25 03:10 | disposition left against medical advice (07) ==
LOC: EC 00:23
DX: Z53.21 Procedure and treatment not carried out due to patient leaving prior to being seen by health care provider (principal); R06.02 Shortness of breath
CPT/HCPCS: 71046; 99499

== ENCOUNTER 2021-05-27 05:15 | Emergency (ER) | payer MEDICARE, BC ==
[2021-05-27 05:19] VITALS: TEMP 97.9
[2021-05-27] MEDS ORDERED: cloNIDine HCL 0.2 MG TAB PO STA (05:40)
[2021-05-27 05:49] VITALS: RESP 18
--- NOTE | 2021-05-27 06:10 | ED ---
SOB HPI - General Chief Complaint: Shortness of Breath Stated Complaint: SOB Time Seen by Provider: 05/27/21 05:27 Source: patient Mode of arrival: ambulatory Limitations: no limitations - History of Present Illness Initial Comments: Patient is a 70-year-old woman who presents with complaint that it feels like she cannot take a full breath. She denies fever or chills. No cough. She states that she is not feeling short of breath at the moment but like she cannot draw a large breath and hold it. The patient has been seen and recently had cardiology workup for this symptom. Patient denies any change in urination or bowel movements. No leg pain or swelling. MD Complaint: shortness of breath -: week(s) Severity scale (1-10): 0 Consistency: constant Improves With: nothing Worsens With: nothing Associated Symptoms: denies other symptoms - Related Data Previous Rx's Medication Instructions Recorded Albuterol Inhaler [Ventolin Hfa 1 puff INHALATION RT-TID PRN #8 gm 05/09/21 Inhaler] lisinopriL [Zestril] 5 mg PO DAILY #30 tab 05/09/21 OLANZapine [ZyPREXA] 2.5 mg PO DAILY 30 Days tab 05/18/21 OLANZapine [ZyPREXA] 10 mg PO HS 30 Days tab 05/18/21 Sertraline [Zoloft] 150 mg PO DAILY 30 Days tab 05/18/21 busPIRone HCl [Buspar] 20 mg PO BID 30 Days tab 05/18/21 Allergies Allergy/AdvReac Type Severity Reaction Status Date / Time No Known Allergies Allergy Verified 05/27/21 05:16 Review of Systems ROS Statement: Those systems with pertinent positive or pertinent negative responses have been documented in the HPI. ROS Other: All systems not noted in ROS Statement are negative. Constitutional: Denies: fever, chills Respiratory: Reports: as per HPI, dyspnea. Denies: cough, wheezes, hemoptysis, stridor Cardiovascular: Denies: chest pain, palpitations, orthopnea, edema, syncope Gastrointestinal: Denies: abdominal pain, nausea, vomiting, melena, hematochezia Genitourinary: Denies: dysuria, hematuria Musculoskeletal: Denies: back pain Neurological: Denies: headache, weakness, numbness Past Medical History Past Medical History: Cancer, Eye Disorder, GERD/Reflux, Hyperlipidemia, Hypertension, Pneumonia Additional Past Medical History / Comment(s): R breast cancer with lumpectomy and radiation 2016, osteopenia, vertigo at times, dry eyes bilaterally,hypotensive episode 01/22/19. 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 Cervical dysplasia 1988. History of Any Multi-Drug Resistant Organisms: None Reported Past Surgical History: Breast Surgery, Tonsillectomy Additional Past Surgical History / Comment(s): 1989 R breast excisional biopsy, benign cyst removed from R breast, 2016 R breast lumpectomy, D&C, cervical conization 1988, colonoscopy 2001. Past Anesthesia/Blood Transfusion Reactions: No Reported Reaction Additional Past Anesthesia/Blood Transfusion Reaction / Comment(s): "Sensitivity to anesthesia" Past Psychological History: Anxiety, Depression Smoking Status: Former smoker Past Alcohol Use History: Occasional Past Drug Use History: None Reported - Past Family History Father Family Medical History: Cancer Additional Family Medical History / Comment(s): Father at age 74 from colon cancer. Mother Family Medical History: Deep Vein Thrombosis (DVT) Additional Family Medical History / Comment(s): Mother had back problems and scoliosis and at age 89. Brother(s) Additional Family Medical History / Comment(s): Patient has 1 brother with no major medical problems. Patient does not have any sisters. Patient has 1 son. General Exam Limitations: no limitations General appearance: alert, in no apparent distress, anxious Head exam: Present: atraumatic, normocephalic Eye exam: Present: normal appearance. Absent: scleral icterus, conjunctival injection ENT exam: Present: normal oropharynx Neck exam: Present: normal inspection, full ROM Respiratory exam: Present: normal lung sounds bilaterally. Absent: respiratory distress, wheezes, rales, rhonchi, stridor Cardiovascular Exam: Present: regular rate, normal rhythm, normal heart sounds. Absent: systolic murmur, diastolic murmur, rubs, gallop GI/Abdominal exam: Present: soft. Absent: distended, tenderness, guarding, rebound, rigid, mass Extremities exam: Present: normal inspection, normal capillary refill. Absent: pedal edema, calf tenderness Back exam: Present: normal inspection. Absent: CVA tenderness (R), CVA tenderness (L) Neurological exam: Present: alert, oriented X3, CN II-XII intact Skin exam: Present: warm, dry, intact, normal color. Absent: rash Course Vital Signs 05/27/21 05/27/21 05/27/21 05:16 05:48 05:52 Temperature 97.9 F Pulse Rate 99 Respiratory 16 18 Rate Blood Pressure 171/95 135/72 O2 Sat by Pulse 98 Oximetry Disposition Clinical Impression: Acute anxiety Disposition: HOME SELF-CARE Condition: Good Instructions (If sedation given, give patient instructions): Anxiety (ED) Is patient prescribed a controlled substance at d/c from ED?: No Referrals: Gamaliel Castañeda DO [Primary Care Provider] - 1-2 days Inna Pete MD [STAFF PHYSICIAN] - 1-2 days
--- NOTE | 2021-05-27 06:13 | XR ---
EXAMINATION TYPE: XR chest 2V DATE OF EXAM: 05/27/2021 COMPARISON: 05/25/2021 HISTORY: Short of breath TECHNIQUE: 2 views FINDINGS: Heart is normal. Lungs are clear. Diaphragm is normal. Bony thorax appears normal. There ar e no hilar masses. IMPRESSION: Normal chest. No adverse change.
[2021-05-27 06:59] VITALS: BP 137/78; PULSE 91
== END 2021-05-27 06:59 | disposition home or self-care (01) ==
LOC: EC 05:15
DX: F41.9 Anxiety disorder, unspecified (principal); I10 Essential (primary) hypertension; E78.5 Hyperlipidemia, unspecified; K21.9 Gastro-esophageal reflux disease without esophagitis; F32.A Depression, unspecified; Z87.891 Personal history of nicotine dependence; Z79.51 Long term (current) use of inhaled steroids; Z79.899 Other long term (current) drug therapy
CPT/HCPCS: 71046; 93005; 99285

== ENCOUNTER 2021-05-31 15:01 | Inpatient (IN) | payer MEDICARE, BC ==
[2021-05-31 16:23] LABS: Basophils # (A) 0.1 k/uL (0-0.2); Basophils % (A) 1 %; Eosinophils # (A) 0.1 k/uL (0-0.7); Eosinophils % (A) 1 %; HCT 44.1 % (34.0-46.0); HGB 14.6 gm/dL (11.4-16.0); Lymphocytes # (A) 1.6 k/uL (1.0-4.8); Lymphocytes % (A) 20 %; MCH 29.3 pg (25.0-35.0); MCHC 33.2 g/dL (31.0-37.0); MCV 88.3 fL (80.0-100.0); Mean Platelet Volume 7.4; Monocytes # (A) 0.4 k/uL (0-1.0); Monocytes % (A) 5 %; Neutrophils # (A) 5.9 k/uL (1.3-7.7); Neutrophils % (A) 73 %; Platelet Count 363 k/uL (150-450); RBC 4.99 m/uL (3.80-5.40); RDW 12.5 % (11.5-15.5); WBC 8.1 k/uL (3.8-10.6)
[2021-05-31 16:35] LABS: Acetaminophen <10.0 ug/mL; African American GFR (CKD) >90 (>60 ml/min/1.73 sqM); Alcohol <10 mg/dL; Anion Gap 17 mmol/L; Blood Urea Nitrogen 16 mg/dL (7-17); Calcium 9.5 mg/dL (8.4-10.2); Carbon Dioxide 23 mmol/L (22-30); Chloride 97 mmol/L (98-107); Glucose 85 mg/dL (74-99); Non-African American GFR(CKD) >90 (>60 ml/min/1.73 sqM); Potassium 3.1 mmol/L (3.5-5.1); Salicylate <1.0 mg/dL; Sodium 137 mmol/L (137-145)
--- NOTE | 2021-05-31 16:35 | ED ---
General Adult HPI - General Chief complaint: Psychiatric Symptoms Stated complaint: Shortness, Lack of appetite Time Seen by Provider: 05/31/21 15:20 Source: patient, family Mode of arrival: ambulatory Limitations: no limitations - History of Present Illness Initial comments: Patient is a 70-year-old female presenting with chief complaint of difficulty b reathing, as well as being unable to eat, drink, sleep over the last several days. Vision has been seen here multiple times for similar complaints. Patient states that when taking in a breath she feels as though she is not getting enough air. Patient is also complaining of a headache, she was evaluated here 3 days ago for the same complaint and received a brain CT that showed no intracranial hemorrhage or mass effect. Friends of the patient present at bedside are concerned that she has not felt the urge to eat or drink, and has had difficulty sleeping. She denies any suicidal or homicidal ideation. She denies chest pain, fever, chills, nausea, vomiting, abdominal pain, diarrhea, constipation, hematochezia, hematemesis, URI-like symptoms, palpitations, weakness, recent injury or trauma. - Related Data Home Medications Medication Instructions Recorded Confirmed LORazepam [Ativan] 1 mg PO DIRECTED 05/31/21 05/31/21 Sertraline HCl [Zoloft] 150 mg PO DAILY 05/31/21 05/31/21 Previous Rx's Medication Instructions Recorded Albuterol Inhaler [Ventolin Hfa 1 puff INHALATION RT-TID PRN #8 gm 05/09/21 Inhaler] lisinopriL [Zestril] 5 mg PO DAILY #30 tab 05/09/21 OLANZapine [ZyPREXA] 2.5 mg PO DAILY 30 Days tab 05/18/21 OLANZapine [ZyPREXA] 10 mg PO HS 30 Days tab 05/18/21 busPIRone HCl [Buspar] 20 mg PO BID 30 Days tab 05/18/21 Allergies Allergy/AdvReac Type Severity Reaction Status Date / Time No Known Allergies Allergy Verified 05/31/21 16:09 Review of Systems ROS Statement: Those systems with pertinent positive or pertinent negative responses have been documented in the HPI. ROS Other: All systems not noted in ROS Statement are negative. Past Medical History Past Medical History: Cancer, Eye Disorder, GERD/Reflux, Hyperlipidemia, Hypert ension, Pneumonia Additional Past Medical History / Comment(s): R breast cancer with lumpectomy and radiation 2016, osteopenia, vertigo at times, dry eyes bilaterally,hypotens guzman episode 01/22/19. 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 Cervical dysplasia 1988. History of Any Multi-Drug Resistant Organisms: None Reported Past Surgical History: Breast Surgery, Tonsillectomy Additional Past Surgical History / Comment(s): 1989 R breast excisional biopsy, benign cyst removed from R breast, 2016 R breast lumpectomy, D&C, cervical conization 1988, colonoscopy 2001. Past Anesthesia/Blood Transfusion Reactions: No Reported Reaction Additional Past Anesthesia/Blood Transfusion Reaction / Comment(s): "Sensitivity to anesthesia" Past Psychological History: Anxiety, Depression Smoking Status: Former smoker Past Alcohol Use History: Occasional Past Drug Use History: None Reported - Past Family History Father Family Medical History: Cancer Additional Family Medical History / Comment(s): Father at age 74 from colon cancer. Mother Family Medical History: Deep Vein Thrombosis (DVT) Additional Family Medical History / Comment(s): Mother had back problems and scoliosis and at age 89. Brother(s) Additional Family Medical History / Comment(s): Patient has 1 brother with no major medical problems. Patient does not have any sisters. Patient has 1 son. General Exam Limitations: no limitations General appearance: alert, in no apparent distress Head exam: Present: normocephalic, other (Patient has 2 large bumps on the head that are bruised and appear to be old, she denies any head injury) Eye exam: Present: normal appearance, EOMI. Absent: scleral icterus Neck exam: Present: normal inspection. Absent: tenderness Respiratory exam: Present: normal lung sounds bilaterally. Absent: respiratory distress, wheezes, rales, rhonchi, stridor Cardiovascular Exam: Present: regular rate, normal rhythm, normal heart sounds. Absent: systolic murmur, diastolic murmur, rubs, gallop, clicks GI/Abdominal exam: Present: soft, normal bowel sounds. Absent: distended, tenderness, guarding, rebound, rigid Back exam: Present: normal inspection Neurological exam: Present: alert, oriented X3, CN II-XII intact Psychiatric exam: Present: normal affect, anxious. Absent: homicidal ideation, suicidal ideation Skin exam: Present: warm, dry, intact, normal color. Absent: rash Course Vital Signs 05/31/21 15:02 Temperature 97.7 F Pulse Rate 86 Respiratory 18 Rate Blood Pressure 142/81 O2 Sat by Pulse 99 Oximetry Medical Decision Making - Medical Decision Making Patient is a 70-year-old female presenting for evaluation after being unable to eat, drink, sleep for the last several days. Patient is accompanied by friends at bedside. Patient is currently complaining of headache and difficulty breathi ng. On exam there are no focal neurological deficits, lungs are clear to auscultation. Chest x-ray is unremarkable. Labs are remarkable for hypokalemia with potassium of 3.1, patient was given 40 mEq of potassium. Patient would not agree to getting an EKG, likely due to her psychosis as she was afraid it would affect her breathing. EPS was consulted. Patient is being admitted per recommendations of the EPS/psych. I discussed this case with my attending Dr. Lang. - Lab Data Result diagrams: 05/31/21 16:12 05/31/21 16:12 Lab Results 05/31/21 05/31/21 05/31/21 Range/Units 16:12 16:12 16:12 WBC 8.1 (3.8-10.6) k/uL RBC 4.99 (3.80-5.40) m/uL Hgb 14.6 (11.4-16.0) gm/dL Hct 44.1 (34.0-46.0) % MCV 88.3 (80.0-100.0) fL MCH 29.3 (25.0-35.0) pg MCHC 33.2 (31.0-37.0) g/dL RDW 12.5 (11.5-15.5) % Plt Count 363 (150-450) k/uL MPV 7.4 Neutrophils % 73 % Lymphocytes % 20 % Monocytes % 5 % Eosinophils % 1 % Basophils % 1 % Neutrophils # 5.9 (1.3-7.7) k/uL Lymphocytes # 1.6 (1.0-4.8) k/uL Monocytes # 0.4 (0-1.0) k/uL Eosinophils # 0.1 (0-0.7) k/uL Basophils # 0.1 (0-0.2) k/uL Sodium 137 (137-145) mmol/L Potassium 3.1 L (3.5-5.1) mmol/L Chloride 97 L (98-107) mmol/L Carbon Dioxide 23 (22-30) mmol/L Anion Gap 17 mmol/L BUN 16 (7-17) mg/dL Creatinine 0.56 (0.52-1.04) mg/dL Est GFR (CKD-EPI)AfAm >90 (>60 ml/min/1.73 sqM) Est GFR (CKD-EPI)NonAf >90 (>60 ml/min/1.73 sqM) Glucose 85 (74-99) mg/dL Calcium 9.5 (8.4-10.2) mg/dL Total Bilirubin (0.2-1.3) mg/dL Conjugated Bilirubin (0.0-0.3) mg/dL Unconjugated Bilirubin (0.0-1.1) mg/dL Delta Bilirubin (0.0-0.2) mg/dL AST (14-36) U/L ALT (4-34) U/L Alkaline Phosphatase (38-126) U/L Troponin I 0.021 (0.000-0.034) ng/mL Total Protein (6.3-8.2) g/dL Albumin (3.5-5.0) g/dL Amylase (30-110) U/L Lipase (23-300) U/L Salicylates <1.0 mg/dL Acetaminophen <10.0 ug/mL Serum Alcohol <10 mg/dL Coronavirus (PCR) (Not Detectd) 05/31/21 05/31/21 Range/Units 21:33 22:18 WBC (3.8-10.6) k/uL RBC (3.80-5.40) m/uL Hgb (11.4-16.0) gm/dL Hct (34.0-46.0) % MCV (80.0-100.0) fL MCH (25.0-35.0) pg MCHC (31.0-37.0) g/dL RDW (11.5-15.5) % Plt Count (150-450) k/uL MPV Neutrophils % % Lymphocytes % % Monocytes % % Eosinophils % % Basophils % % Neutrophils # (1.3-7.7) k/uL Lymphocytes # (1.0-4.8) k/uL Monocytes # (0-1.0) k/uL Eosinophils # (0-0.7) k/uL Basophils # (0-0.2) k/uL Sodium (137-145) mmol/L Potassium (3.5-5.1) mmol/L Chloride (98-107) mmol/L Carbon Dioxide (22-30) mmol/L Anion Gap mmol/L BUN (7-17) mg/dL Creatinine (0.52-1.04) mg/dL Est GFR (CKD-EPI)AfAm (>60 ml/min/1.73 sqM) Est GFR (CKD-EPI)NonAf (>60 ml/min/1.73 sqM) Glucose (74-99) mg/dL Calcium (8.4-10.2) mg/dL Total Bilirubin 0.8 (0.2-1.3) mg/dL Conjugated Bilirubin 0.0 (0.0-0.3) mg/dL Unconjugated Bilirubin 0.4 (0.0-1.1) mg/dL Delta Bilirubin 0.4 H (0.0-0.2) mg/dL AST 27 (14-36) U/L ALT 19 (4-34) U/L Alkaline Phosphatase 105 (38-126) U/L Troponin I (0.000-0.034) ng/mL Total Protein 7.4 (6.3-8.2) g/dL Albumin 4.1 (3.5-5.0) g/dL Amylase 56 (30-110) U/L Lipase 126 (23-300) U/L Salicylates mg/dL Acetaminophen ug/mL Serum Alcohol mg/dL Coronavirus (PCR) Not Detected (Not Detectd) Disposition Clinical Impression: Psychosis Narrative: Recommended by EPS and psych Disposition: ADMITTED IP TO THIS [facility] Condition: Fair Time of Disposition: 21:47 Decision to Admit Reason: Admit from EC Decision Date: 05/31/21 Decision Time: 21:47
--- NOTE | 2021-05-31 16:41 | XR ---
EXAMINATION TYPE: XR chest 2V DATE OF EXAM: 05/31/2021 COMPARISON: Chest x-ray 05/27/2021 HISTORY: Difficulty breathing TECHNIQUE: Frontal and lateral views of the chest are obtained. FINDINGS: There is no focal air space opacity, pleural effusion, or pneumothorax seen. The cardiac silhouette size is within normal limits. Overlying artifact is present. Surgical erica are present within the right breast and axilla. Prominent lung volumes suggest underlying COPD, there may be emp hysematous change in the left upper lobe, there is lucency present. Aorta is dense. The osseous struc tures are intact, there is thoracic spondylosis. IMPRESSION: No acute cardiopulmonary process.
[2021-05-31] MEDS ORDERED: POTASSIUM CHLORIDE ER 20 MEQ TAB.ER PO STA (17:28)
[2021-05-31 22:30] LABS: Albumin 4.1 g/dL (3.5-5.0); Bilirubin, Delta 0.4 mg/dL (0.0-0.2); Bilirubin,Unconjugated 0.4 mg/dL (0.0-1.1); Total Bilirubin 0.8 mg/dL (0.2-1.3); Total Protein 7.4 g/dL (6.3-8.2)
[2021-05-31] MEDS ORDERED: LORazepam 1 MG TAB PO PRN (23:08)
[2021-05-31] MEDS ORDERED: ACETAMINOPHEN TAB 325 MG TAB PO PRN (23:08)
[2021-05-31] MEDS ORDERED: MAGNESIUM HYDROXIDE 2,400 MG/10 ML CUP PO PRN (23:08)
[2021-05-31] MEDS ORDERED: MAG HYDROX/AL HYDROX/SIMETH 30 ML CUP PO PRN (23:08)
[2021-05-31] MEDS ORDERED: HALOPERIDOL LACTATE 5 MG/ML 1 ML VIAL IM PRN (23:08)
[2021-05-31] MEDS ORDERED: LORazepam 2 MG/ML INJ IM PRN (23:11)
[2021-05-31] MEDS ORDERED: traZODone HCL 100 MG TAB PO PRN (23:12)
[2021-05-31] MEDS ORDERED: haloperidoL 5 MG TAB PO PRN (23:12)
[2021-06-01] MEDS ORDERED: SERTRALINE 50 MG TAB PO SCH (09:00)
[2021-06-01 10:36] LABS: Chol/HDL Ratio 6.07 Ratio; LDL Cholesterol,Calculated 144.2 mg/dL (0.0-131.0)
--- NOTE | 2021-06-01 12:37 | P.HP ---
Psychiatric H&P - . H&P Date: 06/01/21 History & Physical: Allergies Allergy/AdvReac Type Severity Reaction Status Date / Time No Known Allergies Allergy Verified 06/01/21 05:41 Vital Signs Temp 97.6 F 06/01/21 00:20 Pulse 89 06/01/21 00:20 Resp 16 06/01/21 00:20 BP 158/73 06/01/21 00:20 Pulse Ox 99 06/01/21 00:20 Intake & Output 05/31/21 06/01/21 06/01/21 18:59 06:59 18:59 Weight 70.307 kg 62.7 kg Laboratory Last Values WBC 8.1 k/uL (3.8-10.6) 05/31/21 16:12 RBC 4.99 m/uL (3.80-5.40) 05/31/21 16:12 Hgb 14.6 gm/dL (11.4-16.0) 05/31/21 16:12 Hct 44.1 % (34.0-46.0) 05/31/21 16:12 MCV 88.3 fL (80.0-100.0) 05/31/21 16:12 MCH 29.3 pg (25.0-35.0) 05/31/21 16:12 MCHC 33.2 g/dL (31.0-37.0) 05/31/21 16:12 RDW 12.5 % (11.5-15.5) 05/31/21 16:12 Plt Count 363 k/uL (150-450) 05/31/21 16:12 MPV 7.4 05/31/21 16:12 Neutrophils % 73 % 05/31/21 16:12 Lymphocytes % 20 % 05/31/21 16:12 Monocytes % 5 % 05/31/21 16:12 Eosinophils % 1 % 05/31/21 16:12 Basophils % 1 % 05/31/21 16:12 Neutrophils # 5.9 k/uL (1.3-7.7) 05/31/21 16:12 Lymphocytes # 1.6 k/uL (1.0-4.8) 05/31/21 16:12 Monocytes # 0.4 k/uL (0-1.0) 05/31/21 16:12 Eosinophils # 0.1 k/uL (0-0.7) 05/31/21 16:12 Basophils # 0.1 k/uL (0-0.2) 05/31/21 16:12 Sodium 137 mmol/L (137-145) 05/31/21 16:12 Potassium 3.1 mmol/L (3.5-5.1) L 05/31/21 16:12 Chloride 97 mmol/L (98-107) L 05/31/21 16:12 Carbon Dioxide 23 mmol/L (22-30) 05/31/21 16:12 Anion Gap 17 mmol/L 05/31/21 16:12 BUN 16 mg/dL (7-17) 05/31/21 16:12 Creatinine 0.56 mg/dL (0.52-1.04) 05/31/21 16:12 Est GFR (CKD-EPI)AfAm >90 (>60 ml/min/1.73 sqM) 05/31/21 16:12 Est GFR (CKD-EPI)NonAf >90 (>60 ml/min/1.73 sqM) 05/31/21 16:12 Glucose 85 mg/dL (74-99) 05/31/21 16:[address] Glu mg/dL 113 05/31/21 16:12 Hemoglobin A1c 5.6 % (0.0-6.0) 05/31/21 16:12 Calcium 9.5 mg/dL (8.4-10.2) 05/31/21 16:12 Total Bilirubin 0.8 mg/dL (0.2-1.3) 05/31/21 22:18 Conjugated Bilirubin 0.0 mg/dL (0.0-0.3) 05/31/21 22:18 Unconjugated Bilirubin 0.4 mg/dL (0.0-1.1) 05/31/21 22:18 Delta Bilirubin 0.4 mg/dL (0.0-0.2) H 05/31/21 22:18 AST 27 U/L (14-36) 05/31/21 22:18 ALT 19 U/L (4-34) 05/31/21 22:18 Alkaline Phosphatase 105 U/L (38-126) 05/31/21 22:18 Troponin I 0.021 ng/mL (0.000-0.034) 05/31/21 16:12 Total Protein 7.4 g/dL (6.3-8.2) 05/31/21 22:18 Albumin 4.1 g/dL (3.5-5.0) 05/31/21 22:18 Triglycerides 110.00 mg/dL (0.00-149.00) 05/31/21 22:18 Cholesterol 199.00 mg/dL (0.00-200.00) 05/31/21 22:18 LDL Cholesterol, Calc 144.2 mg/dL (0.0-131.0) H 05/31/21 22:18 VLDL Cholesterol, Calc 22.00 mg/dL (5.00-40.00) 05/31/21 22:18 HDL Cholesterol 32.80 mg/dL (40.00-60.00) L 05/31/21 22:18 Cholesterol/HDL Ratio 6.07 Ratio 05/31/21 22:18 Amylase 56 U/L (30-110) 05/31/21 22:18 Lipase 126 U/L (23-300) 05/31/21 22:18 TSH 1.170 mIU/L (0.465-4.680) 05/31/21 22:18 Salicylates <1.0 mg/dL 05/31/21 16:12 Acetaminophen <10.0 ug/mL 05/31/21 16:12 Serum Alcohol <10 mg/dL 05/31/21 16:12 Coronavirus (PCR) Not Detected (Not Detectd) 05/31/21 21:33 06/01/21 12:36 IDENTIFYING DATA: Patient is a single, retired, 70-year-old female who presents to the hospital with a decrease in daily functioning and psychosis. HPI: Patient presented to the hospital on 05/31/2021, brought into the emergency department by her friend "Marvin" for "shortness of breath, not eating, barely drinking, not sleeping, and not taking medication." As per EPS report, the patient appeared to be disheveled in appearance and was also endorsing paranoia that people were after her. The patient was petitioned and certified. As per petition filled out by her son Ramy, "She has not been eating, barely drinking, not taking medication, stating she is in another world, very paranoid, stating people are out to get her." Upon admission to the psychiatric unit, the patient continues to be grossly disorganized. She does admit that she has not been eating, sleeping, or dri nking. She does admit she has not taken her medications. She reports she does not feel like she needs medications and does not wish to continue taking any psychiatric medications. The patient reports she does not think anything is wrong. She is unable to recall paranoid symptoms but does admit to suicidal ideation. She denies any intention or plan. She denies any homicidal ideation, intention, and/or plan. The patient does not wish to start any medications. The patient was recently admitted onto our psychiatric unit on 05/14/2021. At the time the patient reported symptoms of paranoia and fear that her grandchildren were or dying. She was stabilized on zyprexa. The patient has been nonadherent since discharge. 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 She was last discharged on a regimen of Zoloft, BuSpar, and Zyprexa however has been adherent. The patient has been admitted to our psychiatric unit numerous times, with this being the fifth admission over the last 3 years. [facility] Patient denies any history of suicide attempts in the past. PMH: Past Medical History: Cancer, Eye Disorder, GERD/Reflux, Hyperlipidemia, Hypertension, Pneumonia Additional Past Medical History / Comment(s): R breast cancer with lumpectomy and radiation 2016, osteopenia, vertigo at times, dry eyes bilaterally,hypotensive episode 01/22/19. 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 Cervical dysplasia 1988. History of Any Multi-Drug Resistant Organisms: None Reported Past Surgical History: Breast Surgery, Tonsillectomy Additional Past Surgical History / Comment(s): 1989 R breast excisional biopsy, benign cyst removed from R breast, 2016 R breast lumpectomy, D&C, cervical conization 1988, colonoscopy 2001. Past Anesthesia/Blood Transfusion Reactions: No Reported Reaction Additional Past Anesthesia/Blood Transfusion Reaction / Comment(s): "Sensitivity to anesthesia" Past Psychological History: Anxiety, Depression Smoking Status: Former smoker Past Alcohol Use History: Occasional Past Drug Use History: None Reported ALLERGIES: NKDA CHEMICAL DEPENDENCY HISTORY: The patient denies any significant tobacco, alcoh ol, or marijuana use. She denies any illicit drug use. FAMILY PSYCHIATRIC/SUBSTANCE USE HISTORY: The patient reports that her mother had depression. SOCIAL HISTORY: Patient was born and raised in [place], [place]. She graduated high school and attended 2 years of college. She reports she lives alone. She has 1 adult son and 2 grandchildren. 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 MENTAL STATUS EXAM: General Appearance: Patient appears to be stated age is alert, directable, and attempts to cooperate. Patient appears to have poor hygiene and grooming. Thin and frail build. Behavior: Patient is seated but displayed elevated psychomotor activity. Speech: Patient's speech is fluent and nonpressured. Hyperverbal Mood/Affect: Patient reports their mood is "nauseous", affect is incongruent and appears expansive and euphoric. Suicidality/Homicidality: Patient denies having any homicidal ideation intent or plan. Patient endorses suicidal ideation. Perceptions: Patient denies any visual hallucinations and denies any auditory hallucinations Though content/process: Paranoia is endorsed. Gross disorganization. Memory and concentration: AOX3, grossly intact for the purposes of this session. Concentration is poor. Judgment and insight: poor STRENGTHS/WEAKNESSES: Strength is that the patient has good social support. Weakness is nonadherence with treatment. INTELLECT: average IMPRESSIONS: Schizoaffective Disorder, bipolar type Rule out MDD with psychosis PLAN: -Patient is admitted under involuntary status to [facility] for stabilization of psychiatric symptoms and safety. A second certification was completed and along with petition will be filed for court. -Medications : Will start patient on Abilify 5 mg daily for psychosis/mood stabilization - likely transition to abilify maintena Remeron 15 mg at bedtime for appetite stimulation Decrease Zoloft to 100 mg daily - concern for manic shift and decrease risk of serotonin syndrome. -Ativan and Haldol PRN for agitation/aggression -Patient was informed of the risks, benefits and side effects of the medication however does not wish to take medications at this time. We will continue to encourage the patient to do so but she has a right to refuse. -Internal Medicine consult to perform medical evaluation and physical. -SW on board for discharge planning. Encourage patient to participate in groups to work on coping skills. 06/01/21 12:37
--- NOTE | 2021-06-01 18:17 | P.MDCNMH ---
History of Present Illness Chief Complaint: Medical management Patient is 70-year-old female for was seeing a mental health unit for medical management. Patient states that she does not have much of the medical problems. She claims that she was told to have COPD however currently not smoking not taking inhalers IV respiratory problems and being on room air. Eyes any history of diabetes or hypertension. Currently patient is feeling comfortable and does not have any particular complaints Review of Systems Negative except as mentioned in HPI Past Medical History Past Medical History: Cancer, Eye Disorder, GERD/Reflux, Hyperlipidemia, Hypertension, Pneumonia Additional Past Medical History / Comment(s): R breast cancer with lumpectomy and radiation 2016, osteopenia, vertigo at times, dry eyes bilaterally,hypotensive episode 01/22/19. 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 Cervical dysplasia 1988. History of Any Multi-Drug Resistant Organisms: None Reported Past Surgical History: Breast Surgery, Tonsillectomy Additional Past Surgical History / Comment(s): 1989 R breast excisional biopsy, benign cyst removed from R breast, 2016 R breast lumpectomy, D&C, cervical conization 1988, colonoscopy 2001. Past Anesthesia/Blood Transfusion Reactions: No Reported Reaction Additional Past Anesthesia/Blood Transfusion Reaction / Comment(s): "Sensitivity to anesthesia" Smoking Status: Former smoker - Past Family History Father Family Medical History: Cancer Additional Family Medical History / Comment(s): Father at age 74 from colon cancer. Mother Family Medical History: Deep Vein Thrombosis (DVT) Additional Family Medical History / Comment(s): Mother had back problems and scoliosis and at age 89. Brother(s) Additional Family Medical History / Comment(s): Patient has 1 brother with no major medical problems. Patient does not have any sisters. Patient has 1 son. Medications and Allergies Home Medications Medication Instructions Recorded Confirmed Type Albuterol Inhaler [Ventolin Hfa 1 puff INHALATION RT-TID PRN #8 gm 05/09/21 06/01/21 Rx Inhaler] lisinopriL [Zestril] 5 mg PO DAILY #30 tab 05/09/21 06/01/21 Rx OLANZapine [ZyPREXA] 2.5 mg PO DAILY 30 Days tab 05/18/21 06/01/21 Rx OLANZapine [ZyPREXA] 10 mg PO HS 30 Days tab 05/18/21 06/01/21 Rx busPIRone HCl [Buspar] 20 mg PO BID 30 Days tab 05/18/21 06/01/21 Rx LORazepam [Ativan] 1 mg PO DIRECTED 05/31/21 06/01/21 History Sertraline HCl [Zoloft] 150 mg PO DAILY 05/31/21 06/01/21 History Allergies Allergy/AdvReac Type Severity Reaction Status Date / Time No Known Allergies Allergy Verified 06/01/21 05:41 Physical Exam Vitals: Vital Signs Temp Pulse Resp BP Pulse Ox 06/01/21 00:20 97.6 F 89 16 158/73 99 Intake and Output 06/01/21 06/01/21 06/01/21 06:59 14:59 22:59 Other: Weight 62.7 kg 62.7 kg Awake alert oriented 3 Head and neck: No facial asymmetry. Pupils are round and reactive to light on icteric sclera oropharyngeal mucosa is clear no neck masses no JVD Lungs: Clear to auscultation Cardiovascular: Regular rhythm and rate no murmurs S1-S2 Abdomen: Soft nontender nondistended no flank tenderness Extremities: No peripheral edema no cough tenderness no cyanosis Neurological: Cranial nerves II through XII are intact, no focal neurological deficits no sensory deficits [id number] is intact no pathological reflexes Muscular skeletal: Joint swelling or deformities Skin without any rash Cranial Nerve Examination - Cranial Nerves Cranial Nerve I- Olfactory: Intact Cranial Nerve II- Optic: Intact Cranial Nerve III- Oculomotor: Intact Cranial Nerve IV- Trochlear: Intact Cranial Nerve V- Trigeminal: Intact Cranial Nerve - Abducens: Intact Cranial Nerve VII- Facial: Intact Cranial Nerve VIII- Auditory: Intact Cranial Nerve IX- Glossopharyngeal: Intact Cranial Nerve X- Vagus: Intact Cranial Nerve XI- Accessory: Intact Cranial Nerve XII- Hypoglossal: Intact Results CBC & Chem 7: 05/31/21 16:12 05/31/21 16:12 Labs: Abnormal Lab Results - Last 24 Hours (Table) 05/31/21 05/31/21 Range/Units 22:18 22:18 Delta Bilirubin 0.4 H (0.0-0.2) mg/dL LDL Cholesterol, Calc 144.2 H (0.0-131.0) mg/dL HDL Cholesterol 32.80 L (40.00-60.00) mg/dL Assessment and Plan Plan: #COPD Not exacerbated, on room air, no home use of inhalers #Mild hypokalemia Repeat potassium, magnesium #Obtain EKG, TSH, A1c, lipid panel
[2021-06-01] MEDS: MIRTAZAPINE 15 MG TAB PO SCH (22:01)
[2021-06-02] MEDS: ARIPiprazole 5 MG TAB PO SCH (08:43)
[2021-06-02] MEDS: SERTRALINE 100 MG TAB PO SCH (08:44)
--- NOTE | 2021-06-02 12:48 | P.PN ---
Progress Note - Text Progress Note Date: 06/02/21 Interval History: Patient was seen wandering the hallways and was directable and agreeable to speak with speech writer in the office. The patient reports that she continues to has no appetite and has an inability to take medications. Patient is currently not reporting any suicidal or homicidal ideation, intention,/or plan. She is currently denying any auditory or visual hallucinations. She denies any paranoia or other delusions. She continues to refuse medications. She says that she will try the medications tomorrow however states that the medications currently would make her feel sick. She reports no issues regarding her sleep. Mental Status Exam: General Appearance: Patient appears to be stated age is alert, directable, and cooperative. Behavior: Patient is calmly seated without any agitated behavior. Speech: Patient's speech is fluent and nonpressured. Mood/Affect: Mood is improving mildly, affect is bizarre and constricted. Suicidality/Homicidality: Patient denies having any suicidal or homicidal ideation intent or plan. Perceptions: Patient denies any visual hallucinations and denies any auditory hallucinations Though content/process: There is no evidence of any delusional thought content and thought process is linear and goal-directed. Patient endorses numerous somatic complaints. Memory and concentration: AOX3, grossly intact for the purposes of this session Judgment and insight: Poor Vital Signs Temp 97.6 F 06/01/21 00:20 Pulse 89 06/01/21 00:20 Resp 16 06/01/21 00:20 BP 158/73 06/01/21 00:20 Pulse Ox 99 06/01/21 00:20 Intake & Output 06/01/21 06/02/21 06/02/21 18:59 06:59 18:59 Weight 62.7 kg Assessment Schizoaffective Disorder, bipolar type Rule out MDD with psychosis Plan: -Patient continues to meet criteria for inpatient psychiatric admission for symptom stabilization and safety. The patient has been petitioned and certified -Medications: Continue Abilify 5 mg daily for psychosis/mood stabilization with plans to transition her to long-acting injectable abilify maintena. Continue Remeron 15 mg daily at bedtime for appetite stimulation Continue Zoloft 100 mg daily -Patient has been refusing her medications. -When necessary Ativan and Haldol for agitation/aggression. -SW on board for discharge planning. Encouraged the patient to participate in milieu.
--- NOTE | 2021-06-02 16:27 | P.PN ---
Progress Note - Text Pt refused multiple attempts of blood draw for BMP and EKG
[2021-06-02] MEDS: MIRTAZAPINE 15 MG TAB PO SCH (20:13)
[2021-06-03] MEDS: SERTRALINE 100 MG TAB PO SCH (08:17)
[2021-06-03] MEDS: ARIPiprazole 5 MG TAB PO SCH (08:17)
[2021-06-03 19:28] LABS: Amphetamine Screen,Urine Not Detected (NotDetected); Barbiturate Screen,Urine Not Detected (NotDetected); Benzodiazepines Screen,Urine Not Detected (NotDetected); Cocaine Screen,Urine Not Detected (NotDetected); Methadone Screen, Urine Not Detected (NotDetected); Opiate Screen,Urine Not Detected (NotDetected); Oxycodone Screen, Urine Not Detected (NotDetected); Phencyclidine Screen,Urine Not Detected (NotDetected); Tricyclic Antidepressant,Urine Not Detected (NotDetected); Urn Cannabinoid Scrn Not Detected (NotDetected)
--- NOTE | 2021-06-03 20:08 | P.PN ---
Progress Note - Text Progress Note Date: 06/03/21 Interval History: Patient was assessed in the conference room. She reports she did not take the Abilify, Remeron, Zoloft because she has been feeling lightheaded and nauseous. She feels does not want to take her medication today because she feels "all choked up" and feels "paralyzed", but objectively appears to be moving and breathing normally. She was seen by the medical doctor. She reports poor appetite. Patient is currently not reporting any suicidal or homicidal ideation, intention/or plan. She is currently denying any auditory or visual hallucinations. She does not endorse any paranoia, but appears somatically preoccupied. She continues to refuse medications. She reports she is not sleeping well. Mental Status Exam: General Appearance: Patient appears to be older than stated age. Behavior: Patient is calmly seated without any agitated behavior, but has odd mannerisms of repeatedly touching her hair. Speech: Patient's speech is fluent and nonpressured. Mood/Affect: Mood is anxious affect is bizarre and constricted. Suicidality/Homicidality: Patient denies having any suicidal or homicidal ideation intent or plan. Perceptions: Patient denies any visual hallucinations and denies any auditory hallucinations Though content/process: She is fixated on somatic complaints. Memory and concentration: Grossly intact for the purposes of this session Judgment and insight: Poor Vital Signs (72 hours) 06/01/21 06/03/21 00:20 06:55 Temperature 97.6 F 97.8 F Pulse Rate [ 89 90 Right Sitting] Respiratory 16 Rate Blood Pressure 158/73 113/63 [Right Arm Sitting] O2 Sat by Pulse 99 98 Oximetry Assessment Schizoaffective Disorder, bipolar type Rule out MDD with psychosis Plan: -Patient continues to meet criteria for inpatient psychiatric admission for symptom stabilization and safety. The patient has been petitioned and certified. -Medications: Encouraged compliance with her medications. Continue Abilify 5 mg daily for psychosis/mood stabilization with plans to transition her to long-acting injectable abilify maintena. Continue Remeron 15 mg daily at bedtime for appetite stimulation Continue Zoloft 100 mg daily -Patient has been refusing her medications. -When necessary Ativan and Haldol for agitation/aggression. -SW on board for discharge planning. Encouraged the patient to participate in milieu.
[2021-06-03] MEDS: MIRTAZAPINE 15 MG TAB PO SCH (21:06)
[2021-06-04 02:50] LABS: Appearance,Urine Cloudy (Clear); Bacteria,Urine Moderate /hpf; Bilirubin,Urine 1+ (Negative); Blood,Urine Trace (Negative); Calcium Oxalate Crystals,Urine Occasional /hpf; Color,Urine Yellow; Glucose,Urine (UA) Negative (Negative); Hyaline Casts,Urine 10 /lpf (0-2); Ketones,Urine 4+ (Negative); Leukocyte Esterase,Urine Large (Negative); Mucus,Urine Many /hpf; Nitrite,Urine Negative (Negative); PH, Urine 6.5 (5.0-8.0); Protein,Urine 1+ (Negative); RBC,Urine 4 /hpf (0-5); Specific Gravity,Urine 1.027 (1.001-1.035); Squamous Epithelial Cell,Urine 1 /hpf (0-4); WBC,Urine 162 /hpf (0-5)
[2021-06-04] MEDS: ARIPiprazole 5 MG TAB PO SCH (08:18)
[2021-06-04] MEDS: SERTRALINE 100 MG TAB PO SCH (08:19)
--- NOTE | 2021-06-04 19:37 | P.PN ---
Progress Note - Text Progress Note Date: 06/04/21 Interval History: Patient was assessed in the conference room. She reports she did not take the Abilify, Remeron, Zoloft, and reports she talked to the nurses and plans to wait until tomorrow to take her medications. She continues to be somatically preoccupied, touches her hair repeatedly as she talks and complains of shortness of breath despite objectively appearing to breath normally and appears well oxygenated. She reports poor appetite; reports she did not eat breakfast or bj nch or dinner. Patient denies uicidal or homicidal ideation, intention/or plan. She is currently denying any auditory or visual hallucinations. She continues to refuse medications. She reports she is not sleeping well. She reports she has been nervous and picking at her left hand, has a dime size red self-inflicted cut from picking at her skin. Mental Status Exam: General Appearance: Patient appears to be older than stated age. Behavior: Patient is calmly seated without any agitated behavior, but has odd mannerisms of repeatedly touching her hair. Speech: Patient's speech is fluent and nonpressured. Mood/Affect: Mood is "miserable", affect is odd and constricted. Suicidality/Homicidality: Patient denies having any suicidal or homicidal ideation intent or plan. Perceptions: Patient denies any visual hallucinations and denies any auditory hallucinations Though content/process: She is fixated on somatic complaints. Delusional. Memory and concentration: Grossly intact for the purposes of this session Judgment and insight: Poor Vital Signs (72 hours) 06/03/21 06/04/21 06:55 06:51 Temperature 97.8 F 97.5 F L Pulse Rate [ 90 85 Right Sitting] Respiratory 16 Rate Blood Pressure 113/63 139/65 [Right Arm Sitting] O2 Sat by Pulse 98 97 Oximetry Assessment Schizoaffective Disorder, bipolar type Rule out MDD with psychosis Plan: -Patient continues to meet criteria for inpatient psychiatric admission for symptom stabilization and safety. The patient has been petitioned and certified. -Medications: Encouraged compliance with her medications with she continues to refuse. Continue Abilify 5 mg daily for psychosis/mood stabilization with plans to transition her to long-acting injectable abilify maintena. Continue Remeron 15 mg daily at bedtime for appetite stimulation Continue Zoloft 100 mg daily -When necessary Ativan and Haldol for agitation/aggression. -SW on board for discharge planning. Encouraged the patient to participate in milieu.
[2021-06-04] MEDS: MIRTAZAPINE 15 MG TAB PO SCH (20:58)
--- NOTE | 2021-06-05 11:40 | P.PN ---
Progress Note - Text Progress Note Date: 06/05/21 Interval History: Patient was seen wandering the hallways and was directable and agreeable to speak with radio news writer in the office. The patient continues to refuse any medications and states that she would take the medications the following day. However she also reported this exact same thing to the weekend provider. She appears to be somatically preoccupied stating that she is unable to have a "full breath." Despite this, the patient does not appear to have any difficulty with breathing or appears to be in any acute distress. She is not reporting any suicidal or homicidal ideation, intention,/or plan. She is not reporting any auditory or visual hallucinations. She continues to be very somatically preoccupied and reports a very low appetite and low thirst. Mental Status Exam: General Appearance: Patient appears to be stated age is alert, directable, and cooperative. Behavior: Patient is calmly seated without any agitated behavior. Speech: Patient's speech is fluent and nonpressured. Mood/Affect: Mood is improving mildly, affect is bizarre and blunted. Suicidality/Homicidality: Patient denies having any suicidal or homicidal ideation intent or plan. Perceptions: Patient denies any visual hallucinations and denies any auditory hallucinations Though content/process: There is no evidence of any delusional thought content and thought process is linear and goal-directed. Patient endorses numerous somatic complaints. Memory and concentration: AOX3, grossly intact for the purposes of this session Judgment and insight: Poor Vital Signs Temp 97.5 F L 06/04/21 06:51 Pulse 85 06/04/21 06:51 Resp 16 06/04/21 06:51 BP 139/65 06/04/21 06:51 Pulse Ox 97 06/04/21 06:51 Intake & Output 06/04/21 06/05/21 06/05/21 18:59 06:59 18:59 Weight 62.5 kg Assessment Schizoaffective Disorder, bipolar type Rule out MDD with psychosis Plan: -Patient continues to meet criteria for inpatient psychiatric admission for symptom stabilization and safety. The patient has been petitioned and certified -Medications: Continue Abilify 5 mg daily for psychosis/mood stabilization with plans to transition her to long-acting injectable abilify maintena. Continue Remeron 15 mg daily at bedtime for appetite stimulation Continue Zoloft 100 mg daily -Patient has been refusing her medications. We will likely have to await court order. -Monitor food and drink intake. -When necessary Ativan and Haldol for agitation/aggression. -SW on board for discharge planning. Encouraged the patient to participate in milieu.
[2021-06-05] MEDS: ARIPiprazole 5 MG TAB PO SCH (16:25)
[2021-06-05] MEDS: SERTRALINE 100 MG TAB PO SCH (16:26)
[2021-06-05] MEDS: MIRTAZAPINE 15 MG TAB PO SCH (20:12)
[2021-06-06] MEDS: SERTRALINE 100 MG TAB PO SCH (08:31)
[2021-06-06] MEDS: ARIPiprazole 5 MG TAB PO SCH (08:31)
[2021-06-06] MEDS ORDERED: BACITRACIN OINT 1 EACH PACKET TOPICAL PRN (09:17)
--- NOTE | 2021-06-06 11:20 | P.PN ---
Progress Note - Text Progress Note Date: 06/06/21 Interval History: Patient was seen wandering the hallways and was directable and agreeable to speak with commercial underwriter in the office. The patient continues to refuse any medications despite stating she would take them later. She reports no suicidal or homicidal ideation, intention, and/or plan. She reports no auditory or visual hallucinations. She reports numerous somatic delusions. She expresses and inability to swallow or breathe despite being monitored by staff to be able to do so. She does continue to report a low appetite however does state she ate some dinner yesterday. She understands she is waiting for mental health court. Mental Status Exam: General Appearance: Patient appears to be stated age is alert, directable, and cooperative. Behavior: Patient is calmly seated without any agitated behavior. Speech: Patient's speech is fluent and nonpressured. Mood/Affect: Mood is improving mildly, affect is bizarre and blunted. Suicidality/Homicidality: Patient denies having any suicidal or homicidal ideation intent or plan. Perceptions: Patient denies any visual hallucinations and denies any auditory hallucinations Though content/process: There is no evidence of any delusional thought content and thought process is linear and goal-directed. Patient endorses numerous somatic complaints. Memory and concentration: AOX3, grossly intact for the purposes of this session Judgment and insight: Poor Assessment Schizoaffective Disorder, bipolar type Rule out MDD with psychosis Plan:- No changes from yesterday. -Patient continues to meet criteria for inpatient psychiatric admission for symptom stabilization and safety. The patient has been petitioned and certi fied. Court scheduled on 06/14/2021. -Medications: Continue Abilify 5 mg daily for psychosis/mood stabilization with plans to transition her to long-acting injectable abilify maintena. Continue Remeron 15 mg daily at bedtime for appetite stimulation Continue Zoloft 100 mg daily -Patient has been refusing her medications. We will likely have to await court order. -Monitor food and drink intake. -When necessary Ativan and Haldol for agitation/aggression. -SW on board for discharge planning. Encouraged the patient to participate in milieu.
[2021-06-06] MEDS: MIRTAZAPINE 15 MG TAB PO SCH (21:43)
[2021-06-07] MEDS: ARIPiprazole 5 MG TAB PO SCH (08:14)
[2021-06-07] MEDS: SERTRALINE 100 MG TAB PO SCH (08:14)
--- NOTE | 2021-06-07 09:52 | P.PN ---
Progress Note - Text Progress Note Date: 06/07/21 Interval History: Patient was seen wandering the hallways and was directable and agreeable to speak with publicity writer in the office. The patient continues to refuse any medications. She continues to endorse numerous somatic complaints including an inability to swallow as well as difficulty breathing. The patient reports that she was able to eat a piece of fruit yesterday. The patient's lips are noticeably wounded, and the patient does comment that she has been biting her lips excessively. She reports that she has been doing so because of elevated anxiety. She was instructed to inform staff and that we have pharmacological treatments for her anxiety however she continues to refuse any medications. She is fixated that she is unable to swallow them and then she also reports this provider that the medications and that this hospital is trying to make her suicidal. She again states that she will try to take her medications today. Mental Status Exam: General Appearance: Patient appears to be stated age is alert, directable, and cooperative. Behavior: Patient displays elevated psychomotor activity today. Speech: Patient's speech is fluent and nonpressured. Mood/Affect: Mood is very anxious, affect is bizarre and expansive. Suicidality/Homicidality: Patient reports suicidal ideation however denies any homicidal ideation. Perceptions: Patient denies any visual hallucinations and denies any auditory hallucinations Though content/process: The patient endorses significant somatic delusions. Very dysphoric. Memory and concentration: AOX3, grossly intact for the purposes of this session Judgment and insight: Poor Vital Signs Temp 97.5 F L 06/04/21 06:51 Pulse 85 06/04/21 06:51 Resp 16 06/04/21 06:51 BP 139/65 06/04/21 06:51 Pulse Ox 97 06/04/21 06:51 Intake & Output 06/06/21 06/07/21 06/07/21 18:59 06:59 18:59 Weight 62.5 kg Laboratory Results WBC 8.1 k/uL (3.8-10.6) 05/31/21 16:12 RBC 4.99 m/uL (3.80-5.40) 05/31/21 16:12 Hgb 14.6 gm/dL (11.4-16.0) 05/31/21 16:12 Hct 44.1 % (34.0-46.0) 05/31/21 16:12 MCV 88.3 fL (80.0-100.0) 05/31/21 16:12 MCH 29.3 pg (25.0-35.0) 05/31/21 16:12 MCHC 33.2 g/dL (31.0-37.0) 05/31/21 16:12 RDW 12.5 % (11.5-15.5) 05/31/21 16:12 Plt Count 363 k/uL (150-450) 05/31/21 16:12 MPV 7.4 05/31/21 16:12 Neutrophils % 73 % 05/31/21 16:12 Lymphocytes % 20 % 05/31/21 16:12 Monocytes % 5 % 05/31/21 16:12 Eosinophils % 1 % 05/31/21 16:12 Basophils % 1 % 05/31/21 16:12 Neutrophils # 5.9 k/uL (1.3-7.7) 05/31/21 16:12 Lymphocytes # 1.6 k/uL (1.0-4.8) 05/31/21 16:12 Monocytes # 0.4 k/uL (0-1.0) 05/31/21 16:12 Eosinophils # 0.1 k/uL (0-0.7) 05/31/21 16:12 Basophils # 0.1 k/uL (0-0.2) 05/31/21 16:12 Sodium 137 mmol/L (137-145) 05/31/21 16:12 Potassium 3.1 mmol/L (3.5-5.1) L 05/31/21 16:12 Chloride 97 mmol/L (98-107) L 05/31/21 16:12 Carbon Dioxide 23 mmol/L (22-30) 05/31/21 16:12 Anion Gap 17 mmol/L 05/31/21 16:12 BUN 16 mg/dL (7-17) 05/31/21 16:12 Creatinine 0.56 mg/dL (0.52-1.04) 05/31/21 16:12 Est GFR (CKD-EPI)AfAm >90 (>60 ml/min/1.73 sqM) 05/31/21 16:12 Est GFR (CKD-EPI)NonAf >90 (>60 ml/min/1.73 sqM) 05/31/21 16:12 Glucose 85 mg/dL (74-99) 05/31/21 16:[address] Glu mg/dL 113 05/31/21 16:12 Hemoglobin A1c 5.6 % (0.0-6.0) 05/31/21 16:12 Calcium 9.5 mg/dL (8.4-10.2) 05/31/21 16:12 Total Bilirubin 0.8 mg/dL (0.2-1.3) 05/31/21 22:18 Conjugated Bilirubin 0.0 mg/dL (0.0-0.3) 05/31/21 22:18 Unconjugated Bilirubin 0.4 mg/dL (0.0-1.1) 05/31/21 22:18 Delta Bilirubin 0.4 mg/dL (0.0-0.2) H 05/31/21 22:18 AST 27 U/L (14-36) 05/31/21 22:18 ALT 19 U/L (4-34) 05/31/21 22:18 Alkaline Phosphatase 105 U/L (38-126) 05/31/21 22:18 Troponin I 0.021 ng/mL (0.000-0.034) 05/31/21 16:12 Total Protein 7.4 g/dL (6.3-8.2) 05/31/21 22:18 Albumin 4.1 g/dL (3.5-5.0) 05/31/21 22:18 Triglycerides 110.00 mg/dL (0.00-149.00) 05/31/21 22:18 Cholesterol 199.00 mg/dL (0.00-200.00) 05/31/21 22:18 LDL Cholesterol, Calc 144.2 mg/dL (0.0-131.0) H 05/31/21 22:18 VLDL Cholesterol, Calc 22.00 mg/dL (5.00-40.00) 05/31/21 22:18 HDL Cholesterol 32.80 mg/dL (40.00-60.00) L 05/31/21 22:18 Cholesterol/HDL Ratio 6.07 Ratio 05/31/21 22:18 Amylase 56 U/L (30-110) 05/31/21 22:18 Lipase 126 U/L (23-300) 05/31/21 22:18 TSH 1.170 mIU/L (0.465-4.680) 05/31/21 22:18 Urine Color Yellow 06/03/21 19:08 Urine Appearance Cloudy (Clear) H 06/03/21 19:08 Urine pH 6.5 (5.0-8.0) 06/03/21 19:08 Ur Specific Hersey 1.027 (1.001-1.035) 06/03/21 19:08 Urine Protein 1+ (Negative) H 06/03/21 19:08 Urine Glucose (UA) Negative (Negative) 06/03/21 19:08 Urine Ketones 4+ (Negative) H 06/03/21 19:08 Urine Blood Trace (Negative) H 06/03/21 19:08 Urine Nitrite Negative (Negative) 06/03/21 19:08 Urine Bilirubin 1+ (Negative) H 06/03/21 19:08 Urine Urobilinogen 4.0 mg/dL (<2.0) 06/03/21 19:08 Ur Leukocyte Esterase Large (Negative) H 06/03/21 19:08 Urine RBC 4 /hpf (0-5) 06/03/21 19:08 Urine WBC 162 /hpf (0-5) H 06/03/21 19:08 Ur Squamous Epith Cells 1 /hpf (0-4) 06/03/21 19:08 Calcium Oxalate Crystal Occasional /hpf (None) H 06/03/21 19:08 Urine Bacteria Moderate /hpf (None) H 06/03/21 19:08 Hyaline Casts 10 /lpf (0-2) H 06/03/21 19:08 Urine Mucus Many /hpf (None) H 06/03/21 19:08 Salicylates <1.0 mg/dL 05/31/21 16:12 Urine Opiates Screen Not Detected (NotDetected) 06/02/21 04:23 Ur Oxycodone Screen Not Detected (NotDetected) 06/02/21 04:23 Urine Methadone Screen Not Detected (NotDetected) 06/02/21 04:23 Ur Propoxyphene Screen Not Detected (NotDetected) 06/02/21 04:23 Acetaminophen <10.0 ug/mL 05/31/21 16:12 Ur Barbiturates Screen Not Detected (NotDetected) 06/02/21 04:23 U Tricyclic Antidepress Not Detected (NotDetected) 06/02/21 04:23 Ur Phencyclidine Scrn Not Detected (NotDetected) 06/02/21 04:23 Ur Amphetamines Screen Not Detected (NotDetected) 06/02/21 04:23 U Methamphetamines Scrn Not Detected (NotDetected) 06/02/21 04:23 U Benzodiazepines Scrn Not Detected (NotDetected) 06/02/21 04:23 Urine Cocaine Screen Not Detected (NotDetected) 06/02/21 04:23 U Marijuana (THC) Screen Not Detected (NotDetected) 06/02/21 04:23 Serum Alcohol <10 mg/dL 05/31/21 16:12 Coronavirus (PCR) Not Detected (Not Detectd) 05/31/21 21:33 Assessment Schizoaffective Disorder, bipolar type Rule out MDD with psychosis Urinary tract infection Plan:- No changes from yesterday. -Patient continues to meet criteria for inpatient psychiatric admission for symptom stabilization and safety. The patient has been petitioned and certified. Court scheduled on 06/14/2021. -Medications: Continue Abilify 5 mg daily for psychosis/mood stabilization with plans to transition her to long-acting injectable abilify maintena. Continue Remeron 15 mg daily at bedtime for appetite stimulation Continue Zoloft 100 mg daily -Patient has been refusing her medications. We will likely have to await court order. -Monitor food and drink intake. -Medicine to treat UTI. -When necessary Ativan and Haldol for agitation/aggression. -SW on board for discharge planning. Encouraged the patient to participate in milieu.
[2021-06-07] MEDS: MIRTAZAPINE 15 MG TAB PO SCH ×2 (21:13→21:15)
[2021-06-08] MEDS: ARIPiprazole 5 MG TAB PO SCH ×2 (07:56→08:46)
[2021-06-08] MEDS: SERTRALINE 100 MG TAB PO SCH ×2 (07:57→08:46)
--- NOTE | 2021-06-08 13:06 | P.PN ---
Progress Note - Text Progress Note Date: 06/08/21 Interval History: Patient was seen wandering the hallways and was directable and agreeable to speak with show card writer in the office. The patient continues to report she is not doing well. She has been adherent with her medications and reports an improved appetite. She stated that she did finish her ensure shake. Despite this the patient continues to endorse feelings of hopelessness and numerous somatic symptoms including an inability to breathe or swallow. She reports a strong desire for discharge and a fear that she is going to be "locked up forever." She reports no suicidal or homicidal ideation, intention, and/or plan. She reports no auditory or visual hallucinations. She denies any side effects of her medications but states that they "do not work." Mental Status Exam: General Appearance: Patient appears to be stated age is alert, directable, and cooperative. Behavior: Patient displays elevated psychomotor activity today. The patient is unable to sit still and is constantly pacing in the room. She terminates the interview early and closes the door behind her. Speech: Patient's speech is fluent and nonpressured. Mood/Affect: Mood is very anxious, affect is bizarre and expansive. Suicidality/Homicidality: Patient reports suicidal ideation however denies any homicidal ideation. Perceptions: Patient denies any visual hallucinations and denies any auditory hallucinations Though content/process: The patient endorses significant somatic delusions. Very dysphoric. Memory and concentration: AOX3, grossly intact for the purposes of this session Judgment and insight: Poor Vital Signs Temp 97.9 F 06/08/21 06:48 Pulse 82 06/08/21 06:48 Resp 16 06/08/21 06:48 BP 158/62 06/08/21 06:48 Pulse Ox 100 06/08/21 06:48 Assessment Schizoaffective Disorder, bipolar type Rule out MDD with psychosis Urinary tract infection Plan: -Patient continues to meet criteria for inpatient psychiatric admission for symptom stabilization and safety. The patient has been petitioned and certified. Court scheduled on 06/14/2021. -Medications: Increase Abilify to 10 mg daily for psychosis/mood stabilization with plans to transition her to long-acting injectable abilify maintena. Increase Remeron to 30 mg daily at bedtime for appetite stimulation Increase Zoloft to 125 mg daily -Monitor food and drink intake. -When necessary Ativan and Haldol for agitation/aggression. -SW on board for discharge planning. Encouraged the patient to participate in milieu.
[2021-06-09] MEDS: MIRTAZAPINE 15 MG TAB PO SCH ×2 (02:27→21:46)
[2021-06-09] MEDS ORDERED: SERTRALINE 50 MG TAB PO SCH (09:00)
[2021-06-09] MEDS ORDERED: ARIPiprazole 10 MG TAB PO SCH (09:00)
--- NOTE | 2021-06-09 12:02 | P.PN ---
Progress Note - Text Progress Note Date: 06/09/21 Interval History: Patient was seen wandering the hallways and was directable and agreeable to speak with casualty underwriter in the office. The patient continues to be very dysphoric. She does report that things are very hopeless and that she will never leave here. She endorses significant symptoms of hopelessness and helplessness. She also has been engaging in self-injurious behavior by skin picking and biting her own lips. She also reports a very low appetite. She has been nonadherent with her medications. She is currently denying any auditory or visual hallucinations. She continues endorse numerous somatic delusions. Mental Status Exam: General Appearance: Patient appears to be stated age is alert, directable, and cooperative. Behavior: Patient displays elevated psychomotor activity today. The patient is unable to sit still and is constantly pacing in the room. She terminates the interview early and closes the door behind her. Speech: Patient's speech is fluent and nonpressured. Mood/Affect: Mood is very anxious, affect is bizarre and expansive. Suicidality/Homicidality: Patient reports suicidal ideation however denies any homicidal ideation. Perceptions: Patient denies any visual hallucinations and denies any auditory hallucinations Though content/process: The patient endorses significant somatic delusions. Very dysphoric. Memory and concentration: AOX3, grossly intact for the purposes of this session Judgment and insight: Poor Vital Signs Temp 97.9 F 06/09/21 06:43 Pulse 95 06/09/21 06:43 Resp 16 06/09/21 06:43 BP 126/63 06/09/21 06:43 Pulse Ox 98 06/09/21 06:43 Assessment Schizoaffective Disorder, bipolar type Rule out MDD with psychosis Urinary tract infection Plan: -Patient continues to meet criteria for inpatient psychiatric admission for symptom stabilization and safety. The patient has been petitioned and certified. Court scheduled on 06/14/2021. -Medications: Patient has been refusing the following medications: Abilify, remeron, zoloft. Abilify 10 mg daily for psychosis/mood stabilization with plans to transition her to long-acting injectable abilify maintena. Remeron 30 mg daily at bedtime for appetite stimulation Zoloft 125 mg daily -Will order CMP, CBC, iron studies, B12, folate -Monitor food and drink intake. -When necessary Ativan and Haldol for agitation/aggression. -SW on board for discharge planning. Encouraged the patient to participate in milieu.
[2021-06-09 12:49] LABS: Basophils # (A) 0.1 k/uL (0-0.2); Basophils % (A) 1 %; Eosinophils # (A) 0.1 k/uL (0-0.7); Eosinophils % (A) 1 %; HCT 44.4 % (34.0-46.0); HGB 14.1 gm/dL (11.4-16.0); Lymphocytes # (A) 1.6 k/uL (1.0-4.8); Lymphocytes % (A) 20 %; MCH 28.4 pg (25.0-35.0); MCHC 31.7 g/dL (31.0-37.0); MCV 89.6 fL (80.0-100.0); Mean Platelet Volume 7.6; Monocytes # (A) 0.6 k/uL (0-1.0); Monocytes % (A) 7 %; Neutrophils # (A) 5.8 k/uL (1.3-7.7); Neutrophils % (A) 70 %; Platelet Count 279 k/uL (150-450); RBC 4.96 m/uL (3.80-5.40); RDW 12.8 % (11.5-15.5); WBC 8.3 k/uL (3.8-10.6)
[2021-06-09 12:59] LABS: ALT 21 U/L (4-34); AST 34 U/L (14-36); African American GFR (CKD) >90 (>60 ml/min/1.73 sqM); Albumin 4.4 g/dL (3.5-5.0); Alkaline Phosphatase 95 U/L (38-126); Anion Gap 13 mmol/L; Blood Urea Nitrogen 24 mg/dL (7-17); Carbon Dioxide 30 mmol/L (22-30); Chloride 100 mmol/L (98-107); Glucose 115 mg/dL (74-99); Non-African American GFR(CKD) 81 (>60 ml/min/1.73 sqM); Potassium 3.3 mmol/L (3.5-5.1); Sodium 143 mmol/L (137-145); Total Bilirubin 0.8 mg/dL (0.2-1.3); Total Protein 7.9 g/dL (6.3-8.2)
[2021-06-10 00:21] LABS: % Iron Saturation 24.53 (12.00-45.00); Iron 75 ug/dL (50-170); Total Iron Binding Capacity 307 ug/dL (228-460)
[2021-06-10] MEDS: ARIPiprazole 15 MG TAB PO SCH (08:31)
[2021-06-10] MEDS: SERTRALINE 50 MG TAB PO SCH (08:31)
--- NOTE | 2021-06-10 11:54 | P.PN ---
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 I feel a lot better and I'm thinking much clearer Know I'm not having any suicidal thoughts or plans Objective data: The patient was playing with the puzzles and seemed to be in no acute distress Her interaction with the other peers and staff remains rather limited Affect at this time remains flat Speech was appropriate Patient's thought processes however remains somewhat disjointed and responses at times were unrelated to the questions asked Formal and operational judgment and insight are impaired Problem-solving skills are poor Land: Continue current pharmacological intervention and supportive care Patient continues to be in need of current hospitalization for stabilization and safety Continue current support Pedro Newsome M.D. 06/10/2021 Objective - Vital Signs Vital signs: Vital Signs Temp 98.2 F 06/10/21 07:03 Pulse 103 H 06/10/21 07:03 Resp 16 06/09/21 06:43 BP 146/82 06/10/21 07:03 Pulse Ox 95 06/10/21 07:03 - Labs CBC & Chem 7: 06/09/21 12:30 06/09/21 12:30 Labs: Abnormal Lab Results - Last 24 Hours (Table) 06/09/21 Range/Units 12:30 Potassium 3.3 L (3.5-5.1) mmol/L BUN 24 H (7-17) mg/dL Glucose 115 H (74-99) mg/dL Vitamin B12 1714.0 H (200.0-944.0) pg/mL
[2021-06-10] MEDS: MIRTAZAPINE 15 MG TAB PO SCH (20:35)
[2021-06-11] MEDS: ARIPiprazole 15 MG TAB PO SCH (08:47)
[2021-06-11] MEDS: SERTRALINE 50 MG TAB PO SCH (08:47)
--- NOTE | 2021-06-11 10:48 | P.PN ---
Subjective Progress Note Date: 06/11/21 Principal diagnosis: Schizoaffective disorder by history Rule out major depressive disorder with psychosis UTI Subjective data: I'm feeling okay but sometimes I do feel like my moods are up and down The concentration also seems to fluctuate I'm hoping to have a better day today" Objective data: Affect at this time remains flat Speech was appropriate Patient's thought processes however remains somewhat disjointed and responses at times were unrelated to the questions asked Formal and operational judgment and insight are impaired Problem-solving skills are poor Land: Continue current pharmacological intervention and supportive care Patient continues to be in need of current hospitalization for stabilization and safety Continue current support Pedro Mercedez Coburn 06/11/2021 Objective - Vital Signs Vital signs: Vital Signs Temp 98.2 F 06/10/21 07:03 Pulse 103 H 06/10/21 07:03 Resp 16 06/09/21 06:43 BP 146/82 06/10/21 07:03 Pulse Ox 95 06/10/21 07:03 - Labs CBC & Chem 7: 06/09/21 12:30 06/09/21 12:30
[2021-06-11] MEDS: MIRTAZAPINE 15 MG TAB PO SCH (21:03)
[2021-06-12 07:07] LABS: ALT 24 U/L (4-34); AST 36 U/L (14-36); African American GFR (CKD) >90 (>60 ml/min/1.73 sqM); Albumin 4.1 g/dL (3.5-5.0); Alkaline Phosphatase 79 U/L (38-126); Anion Gap 12 mmol/L; Blood Urea Nitrogen 19 mg/dL (7-17); Calcium 9.8 mg/dL (8.4-10.2); Carbon Dioxide 31 mmol/L (22-30); Chloride 99 mmol/L (98-107); Glucose 87 mg/dL (74-99); Non-African American GFR(CKD) >90 (>60 ml/min/1.73 sqM); Potassium 3.4 mmol/L (3.5-5.1); Sodium 142 mmol/L (137-145); Total Bilirubin 0.8 mg/dL (0.2-1.3); Total Protein 7.5 g/dL (6.3-8.2)
[2021-06-12] MEDS: ARIPiprazole 15 MG TAB PO SCH (08:59)
[2021-06-12] MEDS: SERTRALINE 50 MG TAB PO SCH (09:01)
--- NOTE | 2021-06-12 12:48 | P.PN ---
Progress Note - Text Progress Note Date: 06/12/21 Interval History: Patient was seen wandering the hallways and was directable and agreeable to speak with content writer in the office. Patient continues to be very dysphoric however endorses significant paranoia today. The patient reports that she has multiple enemies on the psychiatric unit, and lists several staff members. She reports that she is upset that she gave blood during a lab draw because that is "what her enemies have wanted." She is currently endorsing suicidal ideation. She denies any homicidal ideation. She reports no auditory or visual hallucinations. She continues to be quite paranoid and endorses multiple bizarre delusions. She endorses multiple somatic delusions as well and states that she is paralyzed now that she has given some blood. She continues to refuse medications. Mental Status Exam: General Appearance: Patient appears to be stated age is alert, directable, and cooperative. Behavior: Patient displays elevated psychomotor activity today. The patient is unable to sit still and is constantly writhing in bed. Speech: Patient's speech is fluent and nonpressured. Mood/Affect: Mood is "not doing well," affect is bizarre and expansive. Suicidality/Homicidality: Patient reports suicidal ideation however denies any homicidal ideation. Perceptions: Patient denies any visual hallucinations and denies any auditory hallucinations Though content/process: The patient endorses significant somatic delusions. Very dysphoric. Paranoid delusional thought content. Memory and concentration: AOX3, grossly intact for the purposes of this session Judgment and insight: Very poor Vital Signs Temp 98.2 F 06/10/21 07:03 Pulse 103 H 06/10/21 07:03 Resp 16 06/09/21 06:43 BP 146/82 06/10/21 07:03 Pulse Ox 95 06/10/21 07:03 Laboratory Results - Last 24 Hours 06/12/21 05:53 Sodium 142 Potassium 3.4 L Chloride 99 Carbon Dioxide 31 H Anion Gap 12 BUN 19 H Creatinine 0.64 Est GFR (CKD-EPI)AfAm >90 Est GFR (CKD-EPI)NonAf >90 Glucose 87 Calcium 9.8 Total Bilirubin 0.8 AST 36 ALT 24 Alkaline Phosphatase 79 Total Protein 7.5 Albumin 4.1 Assessment Schizoaffective Disorder, bipolar type Rule out MDD with psychosis Urinary tract infection Plan: -Patient continues to meet criteria for inpatient psychiatric admission for symptom stabilization and safety. The patient has been petitioned and certified. Court scheduled on 06/14/2021. -Medications: Patient has been refusing the following medications: Abilify, remeron, zoloft. We'll discontinue Zoloft and Abilify at this time. We will continue Remeron 30 mg by mouth at bedtime for appetite stimulation/depression/anxiety We will start Prolixin 2 mg by mouth at bedtime for psychosis and mood stabilization. Plans to transition patient to Prolixin decanoate. -Monitor food and drink intake. -When necessary Ativan and Haldol for agitation/aggression. -SW on board for discharge planning. Encouraged the patient to participate in milieu.
[2021-06-12] MEDS: MIRTAZAPINE 15 MG TAB PO SCH (20:34)
--- NOTE | 2021-06-13 11:46 | P.PN ---
Progress Note - Text Progress Note Date: 06/13/21 Interval History: Patient was seen resting in bed and was agreeable to speak with expert medical writer in her room. The patient was adherent with her medications last night. However she tells this provider "I should not have taken it." She was informed that she should continue taking the medications as it has been beneficial for her as she appears to be more spontaneous and has had an improved appetite. Despite this, the patient does report that she continues to experience severe shortness of breath despite not being in any acute distress or displaying any abnormal vitals. She is currently denying any suicidal or homicidal ideation, intention, and/or plan. She is denying any auditory or visual hallucinations. She continues to be quite paranoid, stating that she should not cooperate with the staff because we are her enemies. She is currently not reporting any medical i ssues aside from the shortness of breath at this time. Mental Status Exam: Grossly unchanged from yesterday. General Appearance: Patient appears to be stated age is alert, directable, and cooperative. Behavior: Patient displays elevated psychomotor activity today. Speech: Patient's speech is fluent and nonpressured. Mood/Affect: Mood is "not doing well," affect is bizarre and expansive. Grossly unchanged from yesterday. Suicidality/Homicidality: Patient reports suicidal ideation however denies any homicidal ideation. Perceptions: Patient denies any visual hallucinations and denies any auditory hallucinations Though content/process: The patient endorses significant somatic delusions. Very dysphoric. Paranoid delusional thought content. Memory and concentration: AOX3, grossly intact for the purposes of this session Judgment and insight: Very poor Vital Signs Temp 98.2 F 06/10/21 07:03 Pulse 103 H 06/10/21 07:03 Resp 16 06/09/21 06:43 BP 146/82 06/10/21 07:03 Pulse Ox 95 06/10/21 07:03 Assessment Schizoaffective Disorder, bipolar type Rule out MDD with psychosis Urinary tract infection Plan: -Patient continues to meet criteria for inpatient psychiatric admission for symptom stabilization and safety. The patient has been petitioned and certified. Court scheduled on 06/14/2021. -Medications: Patient has been refusing the following medications: Abilify, remeron, zoloft. Increase Remeron to 45 by mouth at bedtime for appetite stimulation/depression/anxiety Increase Prolixin to 3 mg by mouth at bedtime for psychosis and mood stabilization. Plans to transition patient to Prolixin decanoate. -Monitor food and drink intake. -When necessary Ativan and Haldol for agitation/aggression. -SW on board for discharge planning. Encouraged the patient to participate in milieu.
[2021-06-13] MEDS: MIRTAZAPINE 45 MG TABLET PO SCH (21:14)
--- NOTE | 2021-06-14 10:10 | P.PN ---
Progress Note - Text Progress Note Date: 06/14/21 Interval History: Patient was seen resting in bed and was agreeable to speak with investment underwriter in her room. The patient was nonadherent with her medications last night. She is currently reporting that she has difficulty breathing despite not having any abnormal vitals or presenting in any acute distress. She continues to be quite paranoid and somatic. She is not reporting any suicidal or homicidal ideation, intention, and/or plan. She denies any auditory or visual hallucinations. She continues to be nonsensical and refuse medications. She is paranoid towards staff. Mental Status Exam: Grossly unchanged from yesterday. General Appearance: Patient appears to be stated age is alert, directable, and cooperative. Behavior: Patient displays elevated psychomotor activity today. Speech: Patient's speech is fluent and nonpressured. Mood/Affect: Mood is "not good at all," affect is bizarre and expansive. Grossly unchanged from yesterday. Suicidality/Homicidality: No reported suicidal or homicidal ideation today. Perceptions: Patient denies any visual hallucinations and denies any auditory hallucinations Though content/process: The patient endorses significant somatic delusions. Very dysphoric. Paranoid delusional thought content. Memory and concentration: AOX3, grossly intact for the purposes of this session Judgment and insight: Very poor Vital Signs Temp 98.2 F 06/10/21 07:03 Pulse 103 H 06/10/21 07:03 Resp 16 06/09/21 06:43 BP 146/82 06/10/21 07:03 Pulse Ox 95 06/10/21 07:03 Intake & Output 06/13/21 06/14/21 06/14/21 18:59 06:59 18:59 Intake Total 8 Balance 8 Weight 62.5 kg Intake: Oral 8 Assessment Schizoaffective Disorder, bipolar type Rule out MDD with psychosis Urinary tract infection Plan: -Patient continues to meet criteria for inpatient psychiatric admission for symptom stabilization and safety. The patient has been petitioned and certified. Court scheduled on 06/14/2021. -Medications: Patient has been refusing the following medications: Continue Remeron 45 mg by mouth at bedtime for appetite stimulation/depression/anxiety Continue Prolixin 3 mg by mouth at bedtime for psychosis and mood stabilization. Plans to transition patient to Prolixin decanoate. -Awaiting court order. Once court ordered, we will order Prolixin IM when necessary if she refuses her oral medications. -Monitor food and drink intake. -When necessary Ativan and Haldol for agitation/aggression. -SW on board for discharge planning. Encouraged the patient to participate in milieu.
[2021-06-14] MEDS ORDERED: flUPHENAZine 2.5 MG/ML (MDV) 10 ML VIAL IM PRN (10:59)
[2021-06-14] MEDS: MIRTAZAPINE 45 MG TABLET PO SCH ×2 (22:00→22:25)
[2021-06-15] MEDS ORDERED: flUPHENAZine 2.5 MG/ML (MDV) 10 ML VIAL IM SCH (09:15)
[2021-06-15] MEDS ORDERED: flUPHENAZine 2.5 MG/ML (MDV) 10 ML VIAL IM PRN (11:24)
--- NOTE | 2021-06-15 12:18 | P.PN ---
Progress Note - Text Progress Note Date: 06/15/21 Interval History: Patient was seen resting in bed and was agreeable to speak with technical proposal writer in her room. The patient has been adherent with her medications. Patient is under court order and if she refuses her medications, she would be administered Prolixin. Currently, the patient continues to express numerous somatic delusions. She expresses today that she has difficulty swallowing despite no noted issues from staff. She admits primarily isolate herself in her room. She is currently endorsing suicidal ideation however does not mention any plan. She denies any auditory or visual hallucinations. She reports significant paranoia towards staff. She continues to have a low appetite. Mental Status Exam: General Appearance: Patient appears to be stated age is alert, directable, and cooperative. Behavior: Patient displays elevated psychomotor activity today. Speech: Patient's speech is fluent and nonpressured. Mood/Affect: Mood is "I can't swallow at all," affect is bizarre and expansive. Grossly unchanged from yesterday. Suicidality/Homicidality: Patient reports suicidal ideation. She denies any homicidal ideation. Perceptions: Patient denies any visual hallucinations and denies any auditory hallucinations Though content/process: The patient endorses significant somatic delusions. Very dysphoric. Paranoid delusional thought content. Memory and concentration: AOX3, grossly intact for the purposes of this session Judgment and insight: Very poor Vital Signs Temp 98.2 F 06/10/21 07:03 Pulse 103 H 06/10/21 07:03 Resp 16 06/09/21 06:43 BP 146/82 06/10/21 07:03 Pulse Ox 95 06/10/21 07:03 Assessment Schizoaffective Disorder, bipolar type Rule out MDD with psychosis Urinary tract infection Plan: -Patient continues to meet criteria for inpatient psychiatric admission for symptom stabilization and safety. The patient has been petitioned and certified. Court scheduled on 06/14/2021. -Medications: Patient has been refusing the following medications: Continue Remeron 45 mg by mouth at bedtime for appetite stimulation/depression/anxiety Increase Prolixin to 2 mg in the morning and 3 mg by mouth at bedtime for psychosis and mood stabilization. Plans to transition patient to Prolixin decanoate. -Prolixin IM when necessary if she refuses her oral medications. -Monitor food and drink intake. -When necessary Ativan and Haldol for agitation/aggression. -SW on board for discharge planning. Encouraged the patient to participate in milieu.
[2021-06-15] MEDS: MIRTAZAPINE 45 MG TABLET PO SCH (20:20)
[2021-06-16] MEDS ORDERED: flUPHENAZine 2.5 MG/ML (MDV) 10 ML VIAL IM PRN (11:18)
--- NOTE | 2021-06-16 11:25 | P.PN ---
Progress Note - Text Progress Note Date: 06/16/21 Interval History: Patient was seen resting in bed and was agreeable to speak with senior grant writer in her room. The patient continues to be adherent with her medications however she continues to state that the medications are causing her significant side effects. In particular, she states the medications are causing her to be "paralyzed and unable to breathe." Despite this, the patient continues to present in no acute distress and appears to be breathing and able to move just f ine. She is currently not reporting any suicidal or homicidal ideation, intention, and/or plan. She is denying any auditory or visual hallucinations. She continues to be quite paranoid and delusional. She is suspicious of staff and her intentions to medicate her. The patient has a noticeable abrasion on her face. The patient admits to picking at her face.. Mental Status Exam: General Appearance: Patient appears to be stated age is alert, directable, and cooperative. The patient has a noticeable abrasion on her face. Behavior: Patient displays normal psychomotor activity today. Eye contact is appropriate. Speech: Patient's speech is fluent and nonpressured. Mood/Affect: Mood is "I'm paralyzed" affect is bizarre and expansive. Grossly unchanged from yesterday. Suicidality/Homicidality: Patient reports no suicidal or homicidal ideation. Perceptions: Patient denies any visual hallucinations and denies any auditory hallucinations Though content/process: The patient endorses significant somatic delusions. Very dysphoric. Paranoid delusional thought content. Memory and concentration: AOX3, grossly intact for the purposes of this session Judgment and insight: Very poor Vital Signs Temp 98.2 F 06/10/21 07:03 Pulse 103 H 06/10/21 07:03 Resp 16 06/09/21 06:43 BP 146/82 06/10/21 07:03 Pulse Ox 95 06/10/21 07:03 Assessment Schizoaffective Disorder, bipolar type Skin picking disorder Rule out MDD with psychosis Urinary tract infection Plan: -Patient continues to meet criteria for inpatient psychiatric admission for symptom stabilization and safety. The patient has been petitioned and certified. Court scheduled on 06/14/2021. -Medications: Patient has been refusing the following medications: Continue Remeron 45 mg by mouth at bedtime for appetite stimulation/depression/anxiety Increase Prolixin to 3 mg twice daily for plans to transition patient to Prolixin decanoate. Consider initiation of antidepressant to address skin picking disorder Start dronabinol 2.5 mg by mouth twice a day for appetite stimulation -Prolixin IM when necessary if she refuses her oral medications. -Monitor food and drink intake. -When necessary Ativan and Haldol for agitation/aggression. -SW on board for discharge planning. Encouraged the patient to participate in milieu.
[2021-06-16] MEDS: MIRTAZAPINE 45 MG TABLET PO SCH (21:15)
--- NOTE | 2021-06-17 13:06 | P.PN ---
Progress Note - Text Progress Note Date: 06/17/21 Interval history: Patient was directable and agreeable to speak with entry writer. Patient walks into the room and reports she is "out of breath", but objectively does not appear short of breath and appears well oxygenated. She reports she has been picking at her skin "a little bit". On closer evaluation, she has multiple (about 8, dime-size and smaller) self inflicted lesions from picking her scalp. They appear to be healing. She also appears to have a newer lesion on her nose. At this time patient denies any suicidal or homicidal ideations, intent or plan. Denies any auditory or visual hallucinations. She has been compliant with meds, but believes they not helping. Objectively, she appears to be improving. Mental status exam: General Appearance: Patient appears to be stated age. She is alert, directable, and cooperative. She has multiple (about 8, dime-size and smaller) self inflicted lesions from picking her scalp. Behavior: No agitated behavior. Patient appears anxious, is picking at her nails, is directable. Speech: Patient's speech is fluent and nonpressured. Mood/Affect: Mood is anxious, affect is congruent and constricted. Suicidality/Homicidality: Patient denies having any suicidal or homicidal ideation intent or plan. Perceptions: Patient denies any auditory or visual hallucinations. Though content/process: She is preoccupied with somatic delusions. Thought process is fixated on somatic complaints. Memory and concentration: AOX3, grossly intact for the purposes of this session. Judgment and insight: Improving mildly Assessment/Plan: Continue with current diagnosis. Patient continues to meet criteria for inpatient psychiatric admission for symptom stabilization and safety. Patient will be maintained on current psychotropic medication regimen. Monitor for medication compliance and for any psychotropic medication side effects. Will continue to monitor ongoing response to treatment. Encouraged participation in milieu.
[2021-06-17] MEDS: MIRTAZAPINE 45 MG TABLET PO SCH ×2 (19:46→20:48)
[2021-06-18 06:56] LABS: Basophils # (A) 0.1 k/uL (0-0.2); Basophils % (A) 1 %; Eosinophils # (A) 0.1 k/uL (0-0.7); Eosinophils % (A) 1 %; HCT 47.9 % (34.0-46.0); HGB 15.5 gm/dL (11.4-16.0); Lymphocytes # (A) 2.1 k/uL (1.0-4.8); Lymphocytes % (A) 33 %; MCHC 32.4 g/dL (31.0-37.0); MCV 89.7 fL (80.0-100.0); Mean Platelet Volume 7.3; Monocytes # (A) 0.5 k/uL (0-1.0); Monocytes % (A) 8 %; Neutrophils # (A) 3.6 k/uL (1.3-7.7); Neutrophils % (A) 55 %; Platelet Count 278 k/uL (150-450); RBC 5.34 m/uL (3.80-5.40); RDW 13.1 % (11.5-15.5); WBC 6.4 k/uL (3.8-10.6)
[2021-06-18 07:07] LABS: ALT 23 U/L (4-34); AST 45 U/L (14-36); African American GFR (CKD) >90 (>60 ml/min/1.73 sqM); Albumin 4.1 g/dL (3.5-5.0); Alkaline Phosphatase 76 U/L (38-126); Anion Gap 14 mmol/L; Blood Urea Nitrogen 15 mg/dL (7-17); Calcium 9.9 mg/dL (8.4-10.2); Carbon Dioxide 28 mmol/L (22-30); Chloride 98 mmol/L (98-107); Glucose 91 mg/dL (74-99); Non-African American GFR(CKD) 89 (>60 ml/min/1.73 sqM); Potassium 3.6 mmol/L (3.5-5.1); Sodium 140 mmol/L (137-145); Total Bilirubin 0.9 mg/dL (0.2-1.3); Total Protein 7.4 g/dL (6.3-8.2)
--- NOTE | 2021-06-18 15:16 | P.PN ---
Progress Note - Text Progress Note Date: 06/18/21 Interval history: Patient was resting in bed. She was directable and agreeable to speak with parts data writer. She reports feeling "terrible" and "can't breath", objectively she appears to be breathing normally and is well oxygenated. She reports she has not been drinking the water here because it is poisoned. She is irritable and asks to go back to bed. Patient walks into the room and reports she is "out of breath", but objectively does not appear short of breath and appears well oxygenated. At this time patient denies any suicidal or homicidal ideations, intent or plan. Denies any auditory or visual hallucinations. She has been compliant with meds, but states she will not take her medications tonight because she just doesn't want to. Mental status exam: General Appearance: Patient appears to be stated age. She is alert, directable, and superficially cooperative. She has multiple (about 8, dime-size and smaller) self inflicted lesions from picking her scalp. Behavior: No agitated behavior. Patient appears irritable. Speech: Patient's speech is fluent and nonpressured. Mood/Affect: Mood is anxious, affect is congruent and constricted. Suicidality/Homicidality: Patient denies having any suicidal or homicidal ideation intent or plan. Perceptions: Patient denies any auditory or visual hallucinations. Though content/process: She is preoccupied with somatic delusions. Thought process is fixated on somatic complaints. Memory and concentration: AOX3, grossly intact for the purposes of this session. Judgment and insight: Improving mildly Assessment/Plan: Continue with current diagnosis. Patient continues to meet criteria for inpatient psychiatric admission for symptom stabilization and safety. Patient will be maintained on current psychotropic medication regimen. Monitor for medication compliance and for any psychotropic medication side effects. Will continue to monitor ongoing response to treatment. Encouraged participation in milieu.
[2021-06-18] MEDS: MIRTAZAPINE 45 MG TABLET PO SCH (20:46)
[2021-06-18 22:16] VITALS: RESP 16
--- NOTE | 2021-06-19 09:58 | P.PN ---
Subjective Progress Note Date: 06/19/21 Principal diagnosis: Schizoaffective disorder by history Rule out major depressive disorder with psychosis UTI Patient was resting in bed. She was directable and agreeable to speak with remote mortgage underwriter. She reports feeling "terrible" She reports she has not been drinking the water here because it is poisoned. She is irritable and asks to go back to bed. When asked about suicide patient reports that she can't even think and she cannot thing that far Denies any auditory or visual hallucinations. She has been compliant with meds, but she states that the medications are making her too sedated and dopey Mental status exam: General Appearance: Patient appears to be stated age. She is alert, directable, and superficially cooperative. She has multiple (about 8, dime-size and smaller) self inflicted lesions from picking her scalp. Behavior: No agitated behavior. Patient appears irritable. Speech: Patient's speech is fluent and nonpressured. Mood/Affect: Mood is anxious, affect is congruent and constricted. Suicidality/Homicidality: Patient denies having any suicidal or homicidal ideation intent or plan. Perceptions: Patient denies any auditory or visual hallucinations. Though content/process: She is preoccupied with somatic delusions. Thought p rocess is fixated on somatic complaints. Memory and concentration: AOX3, grossly intact for the purposes of this session. Judgment and insight: Improving mildly Assessment/Plan: Continue with current diagnosis. Patient continues to meet criteria for inpatient psychiatric admission for symptom stabilization and safety. Patient will be maintained on current psychotropic medication regimen. Monitor for medication compliance and for any psychotropic medication side effects. Will continue to monitor ongoing response to treatment. Encouraged participation in milieu. Pedro Newsome M.D. 06/19/2021 Objective - Vital Signs Vital signs: Vital Signs Temp 98.7 F 06/18/21 06:48 Pulse 76 06/18/21 20:46 Resp 16 06/18/21 20:46 BP 139/75 06/18/21 20:46 Pulse Ox 98 06/17/21 06:49 Intake & Output 06/18/21 06/19/21 06/19/21 18:59 06:59 18:59 Intake Total 20 Balance 20 Intake: Oral 20 - Labs CBC & Chem 7: 06/18/21 06:40 06/18/21 06:40
[2021-06-19] MEDS: MIRTAZAPINE 45 MG TABLET PO SCH (21:30)
--- NOTE | 2021-06-20 09:50 | P.PN ---
Subjective Progress Note Date: 06/20/21 Principal diagnosis: Schizoaffective disorder by history Rule out major depressive disorder with psychosis UTI My main problem is that I have trouble breathing I may have been depressed in the past maybe over some issues with my boyfriend but he does always been my breathing problem which seems to get me into the hospital Patient denies having any other problems She has been compliant with meds, but she states that the medications are making her too sedated and dopey Mental status exam: General Appearance: Patient appears to be stated age. She is alert, directable, and superficially cooperative. She has multiple (about 8, dime-size and smaller) self inflicted lesions from picking her scalp. Behavior: No agitated behavior. Patient appears irritable. Speech: Patient's speech is fluent and nonpressured. Mood/Affect: Mood is anxious, affect is congruent and constricted. Suicidality/Homicidality: Patient denies having any suicidal or homicidal ideation intent or plan. Perceptions: Patient denies any auditory or visual hallucinations. Though content/process: She is preoccupied with somatic delusions. Thought process is fixated on somatic complaints. Memory and concentration: AOX3, grossly intact for the purposes of this session. Judgment and insight: Improving mildly Assessment/Plan: Continue with current diagnosis. Patient is currently on now Prolixin for psychosis She is also on high doses of Remeron which may help both with insomnia as well as lack of appetite Patient continues to meet criteria for inpatient psychiatric admission for symptom stabilization and safety. Patient will be maintained on current psychotropic medication regimen. Monitor for medication compliance and for any psychotropic medication side effects. Will continue to monitor ongoing response to treatment. Encouraged participation in milieu. Pedro Newsome M.D. 06/20/2021 Objective - Vital Signs Vital signs: Vital Signs Temp 98.7 F 06/18/21 06:48 Pulse 76 06/18/21 20:46 Resp 16 06/18/21 20:46 BP 139/75 06/18/21 20:46 Pulse Ox 98 06/17/21 06:49 - Labs CBC & Chem 7: 06/18/21 06:40 06/18/21 06:40
[2021-06-20] MEDS: MIRTAZAPINE 45 MG TABLET PO SCH (21:11)
--- NOTE | 2021-06-21 09:55 | P.PN ---
Subjective Progress Note Date: 06/21/21 Principal diagnosis: Schizoaffective disorder by history Rule out major depressive disorder with psychosis UTI My main problem is that I have trouble breathing I may be and I don't know how I am alive because I'm not breathing There is no air in this place Mental status exam: General Appearance: Patient appears to be stated age. She is alert, directable, and superficially cooperative. She has multiple (about 8, dime-size and smaller) self inflicted lesions from picking her scalp. Patient now has some bleeding from some excoriations that she has been picking on the left side of her nose Behavior: No agitated behavior. Patient appears irritable. Speech: Patient's speech is fluent and nonpressured. Mood/Affect: Mood is anxious, affect is congruent and constricted. Suicidality/Homicidality: Patient denies having any suicidal or homicidal sharon ation intent or plan. Perceptions: Patient denies any auditory or visual hallucinations. Though content/process: She is preoccupied with somatic delusions. Thought process is fixated on somatic complaints. Memory and concentration: AOX3, grossly intact for the purposes of this session. Judgment and insight: Improving mildly Assessment/Plan: Continue with current diagnosis. Patient is currently on now Prolixin for psychosis We'll discontinue the Remeron as it may not be contributing towards any improvement in her psychosis Instead we'll start the patient on Depakote ER 500 mg at bedtime to start within titrated to response Patient is agreeable for medication management and changes and has delegated the decision making to the doctor Monitor for medication compliance and for any psychotropic medication side effects. Will continue to monitor ongoing response to treatment. Encouraged participation in milieu. Perdo Newsome M.D. 06/20/2021 Objective - Vital Signs Vital signs: Vital Signs Temp 98.7 F 06/18/21 06:48 Pulse 76 06/18/21 20:46 Resp 16 06/18/21 20:46 BP 139/75 06/18/21 20:46 Pulse Ox 98 06/17/21 06:49 Intake & Output 06/20/21 06/21/21 06/21/21 18:59 06:59 18:59 Weight 62.5 kg - Labs CBC & Chem 7: 06/18/21 06:40 06/18/21 06:40
[2021-06-21] MEDS: DIVALPROEX ER 500 MG TAB.ER.24H PO SCH (20:33)
--- NOTE | 2021-06-22 09:22 | P.PN ---
Subjective Progress Note Date: 06/22/21 Principal diagnosis: Schizoaffective disorder by history Rule out major depressive disorder with psychosis UTI I'm not eating because I don't feel hungry at all I have taken some Ensure Plus RU sure U decrease by medications? Mental status exam: General Appearance: Patient appears to be stated age. She is alert, directable, and superficially cooperative. Patient has some new excoriations on the left side of her nose from scratching Behavior: No agitated behavior. Patient appears irritable. Speech: Patient's speech is fluent and nonpressured. Mood/Affect: Mood is anxious, affect is congruent and constricted. Suicidality/Homicidality: Patient denies having any suicidal or homicidal ideation intent or plan. Perceptions: Patient denies any auditory or visual hallucinations. Though content/process: She is preoccupied with somatic delusions. Thought process is fixated on somatic complaints. Memory and concentration: AOX3, grossly intact for the purposes of this session. Judgment and insight: Improving mildly Assessment/Plan: Continue with current diagnosis. Patient is currently on now Prolixin for psychosis Depakote ER 500 mg at bedtime tto be titrated to response Patient is agreeable for medication management and changes and has delegated the decision making to the doctor Monitor for medication compliance and for any psychotropic medication side effects. Will continue to monitor ongoing response to treatment. Encouraged participation in milieu. Pedro Newsome M.D. 06/22/2021 Objective - Vital Signs Vital signs: Vital Signs Temp 98.7 F 06/18/21 06:48 Pulse 76 06/18/21 20:46 Resp 16 06/18/21 20:46 BP 139/75 06/18/21 20:46 Pulse Ox 98 06/17/21 06:49 Intake & Output 06/21/21 06/22/21 06/22/21 18:59 06:59 18:59 Intake Total 1050 Balance 1050 Intake: Oral 1050 - Labs CBC & Chem 7: 06/18/21 06:40 06/18/21 06:40
[2021-06-22] MEDS: DIVALPROEX ER 500 MG TAB.ER.24H PO SCH (21:23)
[2021-06-23 08:57] VITALS: BMI 18.9
--- NOTE | 2021-06-23 09:04 | P.PN ---
Subjective Progress Note Date: 06/23/21 Principal diagnosis: Schizoaffective disorder by history Rule out major depressive disorder with psychosis UTI I am drinking some with that ensure plus I don't think I'm getting any better I'm only keeps saying that I have to eat in order for getting better nourishment when I'm not hungry at all' Mental status exam: General Appearance: Patient appears to be stated age. She is alert, directable, and superficially cooperative. Patient has some new excoriations on the left side of her nose from scratching Behavior: No agitated behavior. Patient appears irritable. Speech: Patient's speech is fluent and nonpressured. Mood/Affect: Mood is anxious, affect is congruent and constricted. Suicidality/Homicidality: Patient denies having any suicidal or homicidal ideation intent or plan. Perceptions: Patient denies any auditory or visual hallucinations. Though content/process: She is preoccupied with somatic delusions. Thought process is fixated on somatic complaints. Memory and concentration: AOX3, grossly intact for the purposes of this session. Judgment and insight: Improving mildly Assessment/Plan: Continue with current diagnosis. Patient is currently on now Prolixin for psychosis Depakote ER 500 mg at bedtime tto be titrated to response Patient is agreeable for medication management and changes and has delegated the decision making to the doctor Monitor for medication compliance and for any psychotropic medication side effects. Will continue to monitor ongoing response to treatment. Encouraged participation in milieu. We'll get Depakote levels before increasing the dosage Pedro Newsome M.D. 06/23/2021 Objective - Vital Signs Vital signs: Vital Signs Temp 98.7 F 06/18/21 06:48 Pulse 76 06/18/21 20:46 Resp 16 06/18/21 20:46 BP 139/75 06/18/21 20:46 Pulse Ox 98 06/17/21 06:49 Intake & Output 06/22/21 06/23/21 06/23/21 18:59 06:59 18:59 Weight 58.117 kg 58.117 kg - Labs CBC & Chem 7: 06/18/21 06:40 06/18/21 06:40
[2021-06-23] MEDS: DIVALPROEX ER 500 MG TAB.ER.24H PO SCH (21:14)
--- NOTE | 2021-06-24 10:38 | P.PN ---
Subjective Progress Note Date: 06/24/21 Principal diagnosis: Schizoaffective disorder by history Rule out major depressive disorder with psychosis UTI I am drinking about 3 of the ensure plus My lungs are getting worse and I am dying slowly I don't think I'm getting any better No I would not have any shock treatments" Mental status exam: General Appearance: Patient appears to be stated age. She is alert, directable, and superficially cooperative. Patient has some new excoriations on the left side of her nose from scratching Behavior: No agitated behavior. Patient appears irritable. Speech: Patient's speech is fluent and nonpressured. Mood/Affect: Mood is anxious, affect is congruent and constricted. Suicidality/Homicidality: Patient denies having any suicidal or homicidal ideation intent or plan. Perceptions: Patient denies any auditory or visual hallucinations. Though content/process: She is preoccupied with somatic delusions. Thought process is fixated on somatic complaints. Memory and concentration: AOX3, grossly intact for the purposes of this session. Judgment and insight: Improving mildly Assessment/Plan: Continue with current diagnosis. Patient is currently on now Prolixin for psychosis Depakote ER 500 mg at bedtime tto be titrated to response Patient is agreeable for medication management and changes and has delegated the decision making to the doctor Monitor for medication compliance and for any psychotropic medication side effects. Will continue to monitor ongoing response to treatment. Encouraged participation in milieu. We'll get Depakote levels before increasing the dosage The progress remains guarded with limited improvement so far seen with the current management and Pedro Newsome M.D. 06/24/2021 Objective - Vital Signs Vital signs: Vital Signs Temp 98.7 F 06/18/21 06:48 Pulse 104 H 06/24/21 08:27 Resp 16 06/18/21 20:46 BP 126/74 06/24/21 08:27 Pulse Ox 98 06/17/21 06:49 Intake & Output 06/23/21 06/24/21 06/24/21 18:59 06:59 18:59 Weight 58.2 kg - Labs CBC & Chem 7: 06/18/21 06:40 06/18/21 06:40
[2021-06-24] MEDS: DIVALPROEX ER 500 MG TAB.ER.24H PO SCH (20:53)
--- NOTE | 2021-06-25 08:13 | P.PN ---
Subjective Progress Note Date: 06/25/21 Principal diagnosis: Schizoaffective disorder by history Rule out major depressive disorder with psychosis UTI No I'm not doing much I haven't moved from the but I may be ' I don't think that I breathe' I am drinking about 3 of the ensure plus My lungs are getting worse and I am dying slowly I don't think I'm getting any better Mental status exam: General Appearance: Patient appears to be stated age. She is alert, directable, and superficially cooperative. Patient has some new excoriations on the left side of her nose from scratching Behavior: No agitated behavior. Patient appears irritable. Speech: Patient's speech is fluent and nonpressured. Mood/Affect: Mood is anxious, affect is congruent and constricted. Suicidality/Homicidality: Patient denies having any suicidal or homicidal ideation intent or plan. Perceptions: Patient denies any auditory or visual hallucinations. Though content/process: She is preoccupied with somatic delusions. Thought process is fixated on somatic complaints. Memory and concentration: AOX3, grossly intact for the purposes of this session. Judgment and insight: Improving mildly Assessment/Plan: Continue with current diagnosis. Patient is currently on now Prolixin for psychosis Depakote ER 500 mg at bedtime tto be titrated to response Patient is agreeable for medication management and changes and has delegated the decision making to the doctor Monitor for medication compliance and for any psychotropic medication side effects. Will continue to monitor ongoing response to treatment. Encouraged participation in milieu. The progress remains guarded with limited improvement so far seen with the current management ECT treatment? Pedro Newsome M.D. 06/25/2021 Objective - Vital Signs Vital signs: Vital Signs Temp 98.7 F 06/18/21 06:48 Pulse 104 H 06/24/21 08:27 Resp 16 06/18/21 20:46 BP 126/74 06/24/21 08:27 Pulse Ox 98 06/17/21 06:49 Intake & Output 06/24/21 06/25/21 06/25/21 18:59 06:59 18:59 Weight 58.2 kg - Labs CBC & Chem 7: 06/18/21 06:40 06/18/21 06:40
[2021-06-26] MEDS: DIVALPROEX ER 500 MG TAB.ER.24H PO SCH ×2 (07:47→21:07)
--- NOTE | 2021-06-26 17:58 | PN ---
PROGRESS NOTE DATE OF SERVICE: 06/26/2021 CHIEF COMPLAINT: The patient was functioning poorly with poor p.o. intake, not sleeping and not taking medications. INTERVAL HISTORY: Patient continues to struggle. She had a difficult day yesterday. She will come out on the unit some. She chose not to attend groups. She has a very negative outlook. She has had poor oral intake and has been just taking supplements. It was documented that she slept 5-1/2 hours last night. Today she has been up and continues the same. She wanders about. She chose not to attend groups yesterday or today. She has a main complaint of being short of breath, though she does not show signs of dyspnea. She has a fairly hopeless outlook. When I talked to her today, she repeated comments about having no reason to stay and talk, as nothing was going to be different. When I reviewed medications with the patient, she notes that when she was hospitalized in January of 2019 she was pretty much in the same state, though said that she had what she felt to be a good recovery and felt the medications were working well for her, which included Lexapro 20 mg a day, Zyprexa 10 mg a day, and BuSpar 30 mg twice a day. She has felt that of late Zyprexa and her other medications have not been helping her. She has not had any clear problems or concerns with her current psychotropics though does not feel that she is getting much benefit. MENTAL STATUS EXAM: Patient gave fair eye contact. Psychomotor activity was slowed. Speech was monotone. She answered questions with brief responses. Her thoughts were clear. Her affect was flat, mood depressed. She was significantly distressed. She acknowledges that she has had some paranoid thinking, though it does appear that that has declined since admission. She voiced no thoughts of harm. She has a very hopeless outlook. She is oriented to circumstances and surroundings. She was able to give me details of past issues and her hospitalizations which were consistent with what is documented in the medical record. ASSESSMENT: I will continue the current diagnosis and treatment plan. The patient was started on Depakote on June 21. I will get a valproic acid level. She will continue Depakote 500 mg twice a day and Prolixin 3 mg twice a day. I briefly reviewed medication issues with the patient, including indications and potential side effects. I kept the discussion limited, as the patient was not very inclined in engaging in the conversation. We will focus on stabilization and discharge planning. JESSICA / XENAN: [id number] /
--- NOTE | 2021-06-27 10:14 | P.PN ---
Progress Note - Text Progress Note Date: 06/27/21 Interval History: Patient was seen resting in bed and was agreeable to speak with public relations writer in her room. Patient continues to endorse the somatic believes that she is unable to breathe. Today she states that they are unsure shakes that she has been consuming has been causing "my lungs to harden." She is currently endorsing suicidal ideation and she just "wants all the suffering to end." She is currently denying any homicidal ideation. She reports no auditory or visual hallucinations. She continues to endorse elevated anxiety and dysphoria. She has reduced her skin picking. Mental Status Exam: General Appearance: Patient appears to be stated age is alert, directable, and cooperative. Fair hygiene and grooming. Behavior: Patient displays normal psychomotor activity today. Poor eye contact. Speech: Patient's speech is fluent and nonpressured. Mood/Affect: Mood is "terrible." Affect is dysphoric. Suicidality/Homicidality: Patient reports no suicidal or homicidal ideation. Perceptions: Patient denies any visual hallucinations and denies any auditory hallucinations Though content/process: The patient endorses significant somatic delusions. Very dysphoric. Memory and concentration: AOX3, grossly intact for the purposes of this session Judgment and insight: Very poor Vital Signs Temp 98.7 F 06/18/21 06:48 Pulse 104 H 06/24/21 08:27 Resp 16 06/18/21 20:46 BP 126/74 06/24/21 08:27 Pulse Ox 98 06/17/21 06:49 Assessment Schizoaffective Disorder, bipolar type Skin picking disorder Rule out MDD with psychosis Urinary tract infection Plan: -Patient continues to meet criteria for inpatient psychiatric admission for symptom stabilization and the patient is now court ordered. -Medications: Start Prozac 20 mg by mouth twice a day to address anxiety and depression. Increase Prolixin to 4 mg by mouth twice a day for psychosis and mood stabilization Continue dronabinol 2.5 mg by mouth twice a day for appetite stimulation -Prolixin IM when necessary if she refuses her oral medications. -Monitor food and drink intake. -When necessary Ativan and Haldol for agitation/aggression. -SW on board for discharge planning. Encouraged the patient to participate in milieu.
[2021-06-27] MEDS: DIVALPROEX ER 500 MG TAB.ER.24H PO SCH (20:45)
[2021-06-27] MEDS: FLUoxetine ORAL SOLN 20 MG/5 ML CUP PO SCH (20:45)
[2021-06-28] MEDS: FLUoxetine ORAL SOLN 20 MG/5 ML CUP PO SCH ×2 (08:44→21:16)
--- NOTE | 2021-06-28 10:02 | P.PN ---
Progress Note - Text Progress Note Date: 06/28/21 Interval History: Patient was seen resting in bed and was agreeable to speak with com writer in her room. Patient continues to be dysphoric and states her mood is "terrible." She reports she is paralyzed and unable to walk. She is currently reporting suicidal ideation but with no plan. She states she does not want to keep "living like this." She reports no appetite and reports an inability to swallow or eat. She continues to consume ensure. She has been adherent with her medications and reports no significant side effects. She reports difficulty with sleep. Mental Status Exam: Grossly unchanged from yesterday. General Appearance: Patient appears to be stated age is alert, directable, and cooperative. Fair hygiene and grooming. Behavior: Patient displays normal psychomotor activity today. Poor eye contact. Speech: Patient's speech is fluent and nonpressured. Mood/Affect: Mood is "terrible." Affect is dysphoric. Suicidality/Homicidality: Patient reports no suicidal or homicidal ideation. Perceptions: Patient denies any visual hallucinations and denies any auditory hallucinations Though content/process: The patient endorses significant somatic delusions; currently states she is paralyzed despite being able to move. Very dysphoric. Memory and concentration: AOX3, grossly intact for the purposes of this session Judgment and insight: Very poor Vital Signs Temp 97.1 F L 06/28/21 07:25 Pulse 71 06/28/21 07:25 Resp 16 06/28/21 07:25 BP 122/65 06/28/21 07:25 Pulse Ox 98 06/17/21 06:49 Intake & Output 06/27/21 06/28/21 06/28/21 18:59 06:59 18:59 Weight 58.173 kg Assessment Schizoaffective Disorder, bipolar type Skin picking disorder Urinary tract infection Plan: -Patient continues to meet criteria for inpatient psychiatric admission for symptom stabilization and the patient is now court ordered. -Medications: Increase Prozac to 30 mg by mouth twice a day to address anxiety and depression. Increase Prolixin to 5 mg by mouth twice a day for psychosis and mood stabilization Continue dronabinol 2.5 mg by mouth twice a day for appetite stimulation -Prolixin IM when necessary if she refuses her oral medications. -Monitor food and drink intake. -When necessary Ativan and Haldol for agitation/aggression. -SW on board for discharge planning. Encouraged the patient to participate in milieu.
[2021-06-28] MEDS ORDERED: OLANZapine 10 MG VIAL IM PRN (11:41)
[2021-06-28 13:13] LABS: ALT 44 U/L (4-34); AST 41 U/L (14-36); African American GFR (CKD) >90 (>60 ml/min/1.73 sqM); Albumin 3.8 g/dL (3.5-5.0); Alkaline Phosphatase 76 U/L (38-126); Anion Gap 6 mmol/L; Blood Urea Nitrogen 14 mg/dL (7-17); Calcium 9.2 mg/dL (8.4-10.2); Carbon Dioxide 34 mmol/L (22-30); Chloride 95 mmol/L (98-107); Glucose 102 mg/dL (74-99); Non-African American GFR(CKD) >90 (>60 ml/min/1.73 sqM); Potassium 3.2 mmol/L (3.5-5.1); Sodium 135 mmol/L (137-145); Total Bilirubin 0.4 mg/dL (0.2-1.3); Total Protein 6.7 g/dL (6.3-8.2)
[2021-06-28 13:19] LABS: Basophils % (A) 1 %; Eosinophils # (A) 0.1 k/uL (0-0.7); Eosinophils % (A) 1 %; HCT 41.7 % (34.0-46.0); HGB 13.5 gm/dL (11.4-16.0); Lymphocytes # (A) 1.3 k/uL (1.0-4.8); Lymphocytes % (A) 21 %; MCH 29.4 pg (25.0-35.0); MCHC 32.5 g/dL (31.0-37.0); MCV 90.5 fL (80.0-100.0); Mean Platelet Volume 7.2; Monocytes # (A) 0.5 k/uL (0-1.0); Monocytes % (A) 8 %; Neutrophils # (A) 4.3 k/uL (1.3-7.7); Neutrophils % (A) 68 %; Platelet Count 272 k/uL (150-450); RDW 13.6 % (11.5-15.5); WBC 6.3 k/uL (3.8-10.6)
[2021-06-28] MEDS ORDERED: POTASSIUM CHLORIDE ER 20 MEQ TAB.ER PO STA (14:16)
[2021-06-28] MEDS ORDERED: OLANZapine ODT 10 MG TAB PO SCH (21:00)
[2021-06-28] MEDS: DIVALPROEX ER 500 MG TAB.ER.24H PO SCH (21:16)
[2021-06-29] MEDS: FLUoxetine ORAL SOLN 20 MG/5 ML CUP PO SCH (08:52)
--- NOTE | 2021-06-29 12:17 | P.PN ---
Progress Note - Text Progress Note Date: 06/29/21 Interval History: Patient was seen resting in bed and was agreeable to speak with junior technical writer in her room. The patient was able to eat two pudding cups yesterday. She continues to be somatic and endorses hip pain as well as her inability to breathe. She wishes to transition from liquid Prozac back to an oral pill form. She is currently denying any suicidal or homicidal ideation, intention, and/or plan today. She reports no auditory or visual hallucinations. The patient is able to be more lighthearted regarding her situation today and is able to make appropriate jokes. She appeared to be bright when discussing her son. Mental Status Exam: Grossly unchanged from yesterday. General Appearance: Patient appears to be stated age is alert, directable, and cooperative. Fair hygiene and grooming. Behavior: Patient displays normal psychomotor activity today. Improved eye contact. Speech: Patient's speech is fluent and nonpressured. Mood/Affect: Mood is "still terrible" Affect appears to be more bright with more range today. Suicidality/Homicidality: Patient reports no suicidal or homicidal ideation. Perceptions: Patient denies any visual hallucinations and denies any auditory hallucinations Though content/process: The patient endorses somatic delusions of being unable to walk, having hip pain, and being short of breath. Memory and concentration: AOX3, grossly intact for the purposes of this session Judgment and insight: Mildly improved Vital Signs Temp 97.1 F L 06/28/21 07:25 Pulse 99 06/29/21 07:00 Resp 16 06/28/21 07:25 BP 118/57 06/29/21 07:00 Pulse Ox 98 06/17/21 06:49 Laboratory Results - Last 24 Hours 06/28/21 06/28/21 12:31 12:31 WBC 6.3 RBC 4.60 Hgb 13.5 Hct 41.7 MCV 90.5 MCH 29.4 MCHC 32.5 RDW 13.6 Plt Count 272 MPV 7.2 Neutrophils % 68 Lymphocytes % 21 Monocytes % 8 Eosinophils % 1 Basophils % 1 Neutrophils # 4.3 Lymphocytes # 1.3 Monocytes # 0.5 Eosinophils # 0.1 Basophils # 0.0 Sodium 135 L Potassium 3.2 L Chloride 95 L Carbon Dioxide 34 H Anion Gap 6 BUN 14 Creatinine 0.44 L Est GFR (CKD-EPI)AfAm >90 Est GFR (CKD-EPI)NonAf >90 Glucose 102 H Calcium 9.2 Total Bilirubin 0.4 AST 41 H ALT 44 H Alkaline Phosphatase 76 Total Protein 6.7 Albumin 3.8 Assessment Schizoaffective Disorder, bipolar type Skin picking disorder Urinary tract infection Plan: -Patient continues to meet criteria for inpatient psychiatric admission for symptom stabilization and the patient is now court ordered. -Medications: We will change Prozac to 60 mg by mouth daily for depression/anxiety We will increase Zyprexa to 15 mg by mouth at bedtime for psychosis Continue dronabinol 2.5 mg by mouth twice a day for appetite stimulation -Zyprexa IM when necessary if she refuses her oral medications. -Monitor food and drink intake. -When necessary Ativan and Haldol for agitation/aggression. -SW on board for discharge planning. Encouraged the patient to participate in milieu.
[2021-06-29] MEDS ORDERED: OLANZapine ODT 5 MG TAB PO SCH (21:00)
[2021-06-29] MEDS: DIVALPROEX ER 500 MG TAB.ER.24H PO SCH (21:00)
[2021-06-29] MEDS ORDERED: FLUoxetine HCL 10 MG CAP PO SCH (21:00)
[2021-06-30 06:54] VITALS: BP 123/61; PULSE 93; TEMP 97.4
[2021-06-30] MEDS: FLUoxetine HCL 20 MG CAP PO SCH (08:36)
--- NOTE | 2021-06-30 11:48 | P.PN ---
Progress Note - Text Progress Note Date: 06/30/21 Interval History: Patient was seen in the hallway and was agreeable to speak with job specification writer in the office. Currently, the patient continues to be dysphoric however has had an increase in her activity. She has been noted to eat breakfast this morning. She continues to report that she has issues regarding her mobility and weakness in her legs. Despite this, the patient has been noted by staff to be able to ambulate and even go from her wheelchair to her bed. She continues endorse significant somatic thoughts and delusions and endorses helplessness. The patient is currently denying any suicidal or homicidal ideation, intention, and/or plan. She is not reporting any auditory or visual hallucinations. She has been in adherent with her medications but continues to report that the medications are the ones that are causing her to feel extremely weak. Mental Status Exam: General Appearance: Patient appears to be stated age is alert, directable, and cooperative. Fair hygiene and grooming. Behavior: Patient displays normal psychomotor activity today. Good eye contact. Ambulates with a wheelchair. Speech: Patient's speech is fluent and nonpressured. Mood/Affect: Mood is "not good" Affect appears to have more range today. Euthymic. Suicidality/Homicidality: Patient reports no suicidal or homicidal ideation. Perceptions: Patient denies any visual hallucinations and denies any auditory hallucinations Though content/process: The patient continues to endorse significant somatic delusions and the helplessness. Memory and concentration: AOX3, grossly intact for the purposes of this session Judgment and insight: Mildly improved Vital Signs Temp 97.4 F L 06/30/21 06:40 Pulse 93 06/30/21 06:40 Resp 16 06/30/21 06:40 BP 123/61 06/30/21 06:40 Pulse Ox 98 06/17/21 06:49 Intake & Output 06/29/21 06/30/21 06/30/21 18:59 06:59 18:59 Weight 58.173 kg Assessment Schizoaffective Disorder, bipolar type Skin picking disorder Urinary tract infection Plan: -Patient continues to meet criteria for inpatient psychiatric admission for symptom stabilization and the patient is now court ordered. -Medications: Continue Prozac 60 mg by mouth daily for depression/anxiety - Will monitor for hyponatremia suspect hypernatremia secondary to lack of oral intake versus medication side effect; Increase Zyprexa to 20 mg at bedtime for delusions Continue dronabinol 2.5 mg by mouth twice a day for appetite stimulation -Zyprexa IM when necessary if she refuses her oral medications. -Monitor food and drink intake. -PT/OT consult. -When necessary Ativan and Haldol for agitation/aggression. -SW on board for discharge planning. Encouraged the patient to participate in milieu.
[2021-06-30] MEDS: OLANZapine ODT 5 MG TAB PO SCH (20:58)
[2021-07-01] MEDS: FLUoxetine HCL 20 MG CAP PO SCH (10:03)
--- NOTE | 2021-07-01 14:55 | P.PN ---
Progress Note - Text Progress Note Date: 07/01/21 Clinical Problems: Schizoaffective disorder bipolar type, skin picking disorder, urinary tract infection Interim history: I reviewed the medical record and interviewed the patient. I interviewed the patient and a room. She was resting in her wheelchair. She complained of some anxiety. She denied problems with sleep or appetite. She is aware of her length of stay and we discussed discharge and discharge plans she questioned whether she could live independently. Mental status exam: She presented as a frail-appearing 70-year-old female who looked much older than her stated age. She was resting in her room and her wheelchair. She was easily aroused and focus and attended to the interview. She appeared sedated. She had marked psychomotor slowing. Her speech was spontaneous with decreased rate, rhythm and volume. Her affect was blunted but stable. She denied suicidal ideation, wishes homicidal ideation. She did not express ideas reference, paranoid ideation or delusions. Her thinking was abstract and associations were goal-directed. She denied hallucinations did not appear to be responding to internal stimuli. Assessment: Patient continues to meet the criteria for inpatient psychiatric admission for symptom stabilization and safety Plan: Continue inpatient treatment. Safety precautions. Continue current medications. Encourage participation in therapeutic groups and activities. Evaluate clinical status and response to treatment daily basis.
[2021-07-01] MEDS: OLANZapine ODT 5 MG TAB PO SCH (22:05)
[2021-07-02] MEDS: FLUoxetine HCL 20 MG CAP PO SCH (08:33)
--- NOTE | 2021-07-02 16:51 | P.PN ---
Progress Note - Text Progress Note Date: 07/02/21 Clinical Problems: Schizoaffective disorder bipolar type, skin picking disorder, urinary tract infection Interim history: I reviewed the medical record and interviewed the patient. I interviewed the patient in her room. She was resting in bed. She again complained of some anxiety. She denied problems with sleep or appetite. She does not attend therapeutic groups and activities. Her appetite remains low. Mental status exam: She presented as a frail-appearing 70-year-old female who looked much older than her stated age. She was resting in her room. She was easily aroused and focus and attended to the interview. She appeared sedated. She had marked psychomotor slowing. Her speech was spontaneous with decreased rate, rhythm and volume. Her affect was blunted but stable. She denied suicidal ideation, wishes homicidal ideation. She did not express ideas reference, paranoid ideation or delusions. Her thinking was abstract and associations were goal-directed. She denied hallucinations did not appear to be responding to internal stimuli. Assessment: Patient continues to meet the criteria for inpatient psychiatric admission for symptom stabilization and safety Plan: Continue inpatient treatment. Safety precautions. Continue current medications. Encourage participation in therapeutic groups and activities. Evaluate clinical status and response to treatment daily basis.
[2021-07-02] MEDS: OLANZapine ODT 5 MG TAB PO SCH (20:39)
[2021-07-03] MEDS: FLUoxetine HCL 20 MG CAP PO SCH (08:39)
--- NOTE | 2021-07-03 10:22 | P.PN ---
Progress Note - Text Progress Note Date: 07/03/21 Interval History: Patient was seen in the hallway and was agreeable to speak with appeals writer in her room. The patient reports that she feels "So-So." She reports an improvement in overall mood. She expresses today a desire for discharge. She reports her appetite has improved and she does admit to eating more of her meals but continues to state she does not think she can consume the whole meal. She is not endorsing any somatic delusions today aside from pain in her left leg/hip. She does report difficulty with ambulation but states she can walk with the assistance of a cane. She denies any suicidal or homicidal ideation, intention, and/or plan. She reports no auditory or visual hallucinations. She reports no paranoia. She was noted to have some difficulty with sleep over the weekend but naps throughout the day. Mental Status Exam: General Appearance: Patient appears to be stated age is alert, directable, and cooperative. Fair hygiene and grooming. Behavior: Patient displays normal psychomotor activity today. Good eye contact. Ambulates with a wheelchair. Speech: Patient's speech is fluent and nonpressured. Mood/Affect: Mood is "So-so today." Affect appears to have more range today. Euthymic. Suicidality/Homicidality: Patient reports no suicidal or homicidal ideation. Perceptions: Patient denies any visual hallucinations and denies any auditory hallucinations Though content/process: The patient continues to endorse significant somatic delusions and the helplessness. Memory and concentration: AOX3, grossly intact for the purposes of this session Judgment and insight: Mildly improved Vital Signs Temp 97.4 F L 06/30/21 06:40 Pulse 93 06/30/21 06:40 Resp 16 06/30/21 06:40 BP 123/61 06/30/21 06:40 Pulse Ox 98 06/17/21 06:49 FiO2 Intake & Output 07/02/21 07/03/21 07/03/21 18:59 06:59 18:59 Weight 56.7 kg Assessment Schizoaffective Disorder, bipolar type Skin picking disorder Urinary tract infection Plan: -Patient continues to meet criteria for inpatient psychiatric admission for symptom stabilization and the patient is now court ordered. -Medications: Continue Prozac 60 mg by mouth daily for depression/anxiety - Will monitor for hyponatremia suspect hypernatremia secondary to lack of oral intake versus medication side effect; CMP ordered. Continue Zyprexa to 20 mg at bedtime for delusions Continue dronabinol 2.5 mg by mouth twice a day for appetite stimulation -Zyprexa IM when necessary if she refuses her oral medications. -Monitor food and drink intake. -PT/OT consult. -When necessary Ativan and Haldol for agitation/aggression. -SW on board for discharge planning. Encouraged the patient to participate in milieu.
[2021-07-03 15:40] LABS: ALT 46 U/L (4-34); AST 56 U/L (14-36); African American GFR (CKD) >90 (>60 ml/min/1.73 sqM); Albumin 4.1 g/dL (3.5-5.0); Alkaline Phosphatase 84 U/L (38-126); Anion Gap 10 mmol/L; Blood Urea Nitrogen 26 mg/dL (7-17); Calcium 9.7 mg/dL (8.4-10.2); Carbon Dioxide 32 mmol/L (22-30); Chloride 95 mmol/L (98-107); Glucose 109 mg/dL (74-99); Non-African American GFR(CKD) >90 (>60 ml/min/1.73 sqM); Potassium 3.5 mmol/L (3.5-5.1); Sodium 137 mmol/L (137-145); Total Bilirubin 0.7 mg/dL (0.2-1.3); Total Protein 7.3 g/dL (6.3-8.2)
[2021-07-03] MEDS: OLANZapine ODT 5 MG TAB PO SCH (20:24)
[2021-07-04] MEDS: FLUoxetine HCL 20 MG CAP PO SCH (08:47)
--- NOTE | 2021-07-04 13:53 | P.PN ---
Progress Note - Text Progress Note Date: 07/04/21 Interval History: Patient was seen in the hallway and was agreeable to speak with real estate underwriter in her room. The patient reports that she feels "ready to go. The patient is currently denying any suicidal or homicidal ideation, intention, and/or plan. She does report an improved appetite. She is not reporting any auditory or visual hallucinations. The patient has been in adherent with her medications and is not endorsing any significant side effects at this time. She expresses a strong desire for discharge. This provider contacted the patient's son who also confirms that the patient has displayed significant improvement in regards to her mood and affect over the phone. The patient continues to have a slow gait and exhibit signs of weakness. There is a recommendation for rehabilitation. Mental Status Exam: General Appearance: Patient appears to be stated age is alert, directable, and cooperative. Fair hygiene and grooming. Thin. Behavior: Patient displays normal psychomotor activity today. Good eye contact. Ambulates with a wheelchair. Speech: Patient's speech is fluent and nonpressured. Mood/Affect: Mood is "ready to go home." Affect appears to have more range today. Euthymic. Suicidality/Homicidality: Patient reports no suicidal or homicidal ideation. Perceptions: Patient denies any visual hallucinations and denies any auditory hallucinations Though content/process: The patient continues to endorse significant somatic delusions and the helplessness. Memory and concentration: AOX3, grossly intact for the purposes of this session Judgment and insight: Mildly improved Vital Signs Temp 97.4 F L 06/30/21 06:40 Pulse 93 06/30/21 06:40 Resp 16 06/30/21 06:40 BP 123/61 06/30/21 06:40 Pulse Ox 98 06/17/21 06:49 FiO2 Laboratory Results - Last 24 Hours 07/03/21 14:53 Sodium 137 Potassium 3.5 Chloride 95 L Carbon Dioxide 32 H Anion Gap 10 BUN 26 H Creatinine 0.53 Est GFR (CKD-EPI)AfAm >90 Est GFR (CKD-EPI)NonAf >90 Glucose 109 H Calcium 9.7 Total Bilirubin 0.7 AST 56 H ALT 46 H Alkaline Phosphatase 84 Total Protein 7.3 Albumin 4.1 Assessment Schizoaffective Disorder, bipolar type Skin picking disorder Urinary tract infection Plan: -Patient continues to meet criteria for inpatient psychiatric admission for symptom stabilization and the patient is now court ordered. -Medications: Continue Prozac 60 mg by mouth daily for depression/anxiety - CMP reviewed, hyponatremia improved. Continue Zyprexa to 20 mg at bedtime for delusions Decrease dronabinol to 2.5 mg by mouth twice a day for appetite stimulation -Zyprexa IM when necessary if she refuses her oral medications. -Monitor food and drink intake. -PT/OT consult. -When necessary Ativan and Haldol for agitation/aggression. -SW on board for discharge planning. Encouraged the patient to participate in milieu.
[2021-07-04] MEDS: OLANZapine ODT 5 MG TAB PO SCH (20:34)
[2021-07-05] MEDS: FLUoxetine HCL 20 MG CAP PO SCH (08:25)
--- NOTE | 2021-07-05 11:33 | P.DS ---
Providers Date of admission: 05/31/21 23:03 Expected date of discharge: 07/05/21 Attending physician: Gamaliel Pena MD Consults: 05/31/21 23:08 Consult Physician Routine Consulting Provider: Gema Ribera Consult Reason/Comments: history and physical/medical management Do you want consulting provider notified?: Yes Primary care physician: Gamaliel Castañeda - Discharge Diagnosis(es) (1) Schizoaffective disorder, bipolar type Current Visit: Yes Status: Acute Priority: High (2) Skin-picking disorder Current Visit: Yes Status: Acute Priority: High Hospital Course: Admission HPI: Patient is a single, retired, 70-year-old female who presents to the hospital with a decrease in daily functioning and psychosis. Patient presented to the hospital on 05/31/2021, brought into the emergency department by her friend "Marvin" for "shortness of breath, not eating, barely drinking, not sleeping, and not taking medication." As per EPS report, the patient appeared to be disheveled in appearance and was also endorsing paranoia that people were after her. The patient was petitioned and certified. As per petition filled out by her son Ramy, "She has not been eating, barely drinking, not taking medication, stating she is in another world, very paranoid, stating people are out to get her." Upon admission to the psychiatric unit, the patient continues to be grossly disorganized. She does admit that she has not been eating, sleeping, or drinking. She does admit she has not taken her medications. She reports she does not feel like she needs medications and does not wish to continue taking any psychiatric medications. The patient reports she does not think anything is wrong. She is unable to recall paranoid symptoms but does admit to suicidal ideation. She denies any intention or plan. She denies any homicidal ideation, intention, and/or plan. The patient does not wish to start any medications. The patient was recently admitted onto our psychiatric unit on 05/14/2021. At the time the patient reported symptoms of paranoia and fear that her grandchildren were or dying. She was stabilized on zyprexa. The patient has been nonadherent since discharge. 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 She was last discharged on a regimen of Zoloft, BuSpar, and Zyprexa however has been adherent. The patient has been admitted to our psychiatric unit numerous times, with this being the fifth admission over the last 3 years. The patient is open with [facility] counseling. Patient denies any history of suicide attempts in the past. Patient has a reported history of some developmental delay. The patient is unable to recall any previous medications however Abilify and Depakote are noted to be allergies. She was reportedly inpatient at [facility] earlier this year. No reported outpatient psychiatric follow-up. Unable to determine any previous attempts at suicide. Hospital course: Upon admission to the unit patient was presenting with paranoia, poor hygiene and grooming, decreased ability to function, insomnia, medication nonadherence, and numerous somatic symptoms. Of great concern, the patient was not eating or drinking. The patient was petitioned and certified. The patient was initially started on a regimen of Abilify for mood stabilization and psychosis with plans to transition her to Abilify maintena for medication nonadherence. The patient was nonadherent with treatment. The patient continued to endorse somatic sym ptoms and gradual deterioration as she continued to refuse to eat. Eventually, the patient was court ordered for mental health treatment. She however continued to show minimal improvement with Abilify. She is transition to Prolixin however continued to display no significant improvement regards her target symptoms of psychosis. Collateral information was obtained by the patient's son reported that the patient previously did well on a regimen of Zyprexa. The patient was transitioned to Zyprexa. Over the course of the hospitalization, as Zyprexa was titrated, she displayed significant improvement in regards to her target symptoms of somatic delusions, appetite, and dysphoria. The patient was placed on Marinol and Prozac in order to treat depression, anxiety, and appetite stimulation. The patient did have significant episodes of weakness and physical therapy was consulted for an evaluation and recommendations. They recommended home health care services for this patient. The patient displayed significant improvement on her regimen. On the day of discharge, the patient is not reporting any suicidal or homicidal ideation, intention, and/or plan. She is not reporting any auditory or visual hallucinations. She denies any paranoia or other delusions. The patient reports no issues regarding her sleep or her appetite. She continues to report that her appetite slightly low but she has had an increase in her food and drink intake. She is also displayed better strength and has been ambulating more. She does not endorse any overt somatic or psychotic symptoms. The patient is not reporting any access to firearms or other weapons. She was encouraged to be adherent with her medications and to follow-up with their outpatient appointments. Prior to discharge, family meeting was arranged by geriatric social work professor to answer any questions and ensure safety. Mental status exam: General Appearance: Patient appears to be stated age is alert, pleasant, and cooperative. Patient is in no acute distress and has fair hygiene and grooming Behavior: Patient is calmly seated without any agitated behavior. Speech: Patient's speech is fluent and nonpressured. Mood/Affect: Patient reports their mood is "much better", affect is euthymic to bright. Suicidality/Homicidality: Patient denies any suicidal or homicidal ideation, intention, and/or plan. Perceptions: Patient denies any auditory or visual hallucinations. Though content/process: There is no evidence of any delusional thought content and thought process is linear and goal-directed. The patient is future oriented. Memory and concentration: AOX3, grossly intact for the purposes of this session. Can spell "WORLD" backwards correctly. Judgment and insight: Improved with guarded prognosis Vital Signs Temp 97.4 F L 06/30/21 06:40 Pulse 93 06/30/21 06:40 Resp 16 06/30/21 06:40 BP 123/61 06/30/21 06:40 Pulse Ox 98 06/17/21 06:49 FiO2 Impression: Schizoaffective disorder, bipolar type Skin picking disorder Plan: -Continue with discharge today as patient has improved and stabilized psychiatrically and is not currently an imminent threat to herself and/or others. Patient will remain at chronically elevated risk for harm to self and/or others due to her history of nonadherence to treatment as well as her treatment resistant psychotic symptoms -Continue medications: Prozac 60 mg by mouth daily for skin picking disorder Zyprexa 20 mg by mouth at bedtime for schizoaffective disorder Marinol 2.5 mg by mouth twice a day for appetite stimulation -Patient was counseled on the need for medication compliance and appropriate follow-up at mental health and also primary care for medical issues. Patient verbalized understanding and agreed. -Social work to arrange for and conduct family meeting to ensure safety upon discharge and answer any questions/concerns. Social work also to arrange for patients follow up appointments with [facility] for psychiatric care along with follow up with primary care provider. -Patient counseled on abstaining from recreational drugs and marijuana and alcohol. Was informed/educated on the adverse effects on their physical and mental health. Patient verbally agreed and understood. -Patient was instructed to return to the hospital or seek immediate medical care if their psychiatric or medical symptoms do worsen or reoccur. -Psychoeducation and supportive therapy provided to patient. Risks and benefits of pharmacological treatment versus the risks and benefits of nontreatment weight and discussed. Informed consent discussion held. Common side effects of psychotropics discussed such as, but not limited to headache, GI disturbance, sexual dysfunction, movement disorders, sedation, and orthostatic hypotension. Life threatening and blackbox warnings of prescribed medications also discussed. Potential risks of operating a vehicle or heavy machinery discussed with patient at length. Advised on importance of compliance and a reliable and responsible manner. Patient advised to review FDA consumer labeling of all medications prior to taking. Patient verbalized understanding of potential risks, and agrees with current treatment plan. Patient advised to medically contact physician/emergency personnel if any acute changes in condition occur. Laboratory Results WBC 6.3 k/uL (3.8-10.6) 06/28/21 12:31 RBC 4.60 m/uL (3.80-5.40) 06/28/21 12:31 Hgb 13.5 gm/dL (11.4-16.0) 06/28/21 12:31 Hct 41.7 % (34.0-46.0) 06/28/21 12:31 MCV 90.5 fL (80.0-100.0) 06/28/21 12:31 MCH 29.4 pg (25.0-35.0) 06/28/21 12: MCHC 32.5 g/dL (31.0-37.0) 06/28/21 12: RDW 13.6 % (11.5-15.5) 06/28/21 12:31 Plt Count 272 k/uL (150-450) 06/28/21 12:31 MPV 7.2 06/28/21 12:31 Neutrophils % 68 % 06/28/21 12:31 Lymphocytes % 21 % 06/28/21 12:31 Monocytes % 8 % 06/28/21 12:31 Eosinophils % 1 % 06/28/21 12:31 Basophils % 1 % 06/28/21 12:31 Neutrophils # 4.3 k/uL (1.3-7.7) 06/28/21 12:31 Lymphocytes # 1.3 k/uL (1.0-4.8) 06/28/21 12:31 Monocytes # 0.5 k/uL (0-1.0) 06/28/21 12:31 Eosinophils # 0.1 k/uL (0-0.7) 06/28/21 12:31 Basophils # 0.0 k/uL (0-0.2) 06/28/21 12:31 Sodium 137 mmol/L (137-145) 07/03/21 14:53 Potassium 3.5 mmol/L (3.5-5.1) 07/03/21 14:53 Chloride 95 mmol/L (98-107) L 07/03/21 14:53 Carbon Dioxide 32 mmol/L (22-30) H 07/03/21 14:53 Anion Gap 10 mmol/L 07/03/21 14:53 BUN 26 mg/dL (7-17) H 07/03/21 14:53 Creatinine 0.53 mg/dL (0.52-1.04) 07/03/21 14:53 Est GFR (CKD-EPI)AfAm >90 (>60 ml/min/1.73 sqM) 07/03/21 14:53 Est GFR (CKD-EPI)NonAf >90 (>60 ml/min/1.73 sqM) 07/03/21 14:53 Glucose 109 mg/dL (74-99) H 07/03/21 14:[address] Glu mg/dL 113 05/31/21 16:12 Hemoglobin A1c 5.6 % (0.0-6.0) 05/31/21 16:12 Calcium 9.7 mg/dL (8.4-10.2) 07/03/21 14:53 Iron 75 ug/dL (50-170) 06/09/21 12:30 TIBC 307 ug/dL (228-460) 06/09/21 12:30 % Saturation 24.53 (12.00-45.00) 06/09/21 12:30 Transferrin 219.0 mg/dL (204.0-354.0) 06/09/21 12:30 Total Bilirubin 0.7 mg/dL (0.2-1.3) 07/03/21 14:53 Conjugated Bilirubin 0.0 mg/dL (0.0-0.3) 05/31/21 22:18 Unconjugated Bilirubin 0.4 mg/dL (0.0-1.1) 05/31/21 22:18 Delta Bilirubin 0.4 mg/dL (0.0-0.2) H 05/31/21 22:18 AST 56 U/L (14-36) H 07/03/21 14:53 ALT 46 U/L (4-34) H 07/03/21 14:53 Alkaline Phosphatase 84 U/L (38-126) 07/03/21 14:53 Troponin I 0.021 ng/mL (0.000-0.034) 05/31/21 16:12 Total Protein 7.3 g/dL (6.3-8.2) 07/03/21 14:53 Albumin 4.1 g/dL (3.5-5.0) 07/03/21 14:53 Triglycerides 110.00 mg/dL (0.00-149.00) 05/31/21 22:18 Cholesterol 199.00 mg/dL (0.00-200.00) 05/31/21 22:18 LDL Cholesterol, Calc 144.2 mg/dL (0.0-131.0) H 05/31/21 22:18 VLDL Cholesterol, Calc 22.00 mg/dL (5.00-40.00) 05/31/21 22:18 HDL Cholesterol 32.80 mg/dL (40.00-60.00) L 05/31/21 22:18 Cholesterol/HDL Ratio 6.07 Ratio 05/31/21 22:18 Amylase 56 U/L (30-110) 05/31/21 22:18 Lipase 126 U/L (23-300) 05/31/21 22:18 Vitamin B12 1714.0 pg/mL (200.0-944.0) H 06/09/21 12:30 Folate 17.30 ng/mL (4.40-31.00) 06/09/21 12:30 TSH 1.170 mIU/L (0.465-4.680) 05/31/21 22:18 Urine Color Yellow 06/03/21 19:08 Urine Appearance Cloudy (Clear) H 06/03/21 19:08 Urine pH 6.5 (5.0-8.0) 06/03/21 19:08 Ur Specific [place] 1.027 (1.001-1.035) 06/03/21 19:08 Urine Protein 1+ (Negative) H 06/03/21 19:08 Urine Glucose (UA) Negative (Negative) 06/03/21 19:08 Urine Ketones 4+ (Negative) H 06/03/21 19:08 Urine Blood Trace (Negative) H 06/03/21 19:08 Urine Nitrite Negative (Negative) 06/03/21 19:08 Urine Bilirubin 1+ (Negative) H 06/03/21 19:08 Urine Urobilinogen 4.0 mg/dL (<2.0) 06/03/21 19:08 Ur Leukocyte Esterase Large (Negative) H 06/03/21 19:08 Urine RBC 4 /hpf (0-5) 06/03/21 19:08 Urine WBC 162 /hpf (0-5) H 06/03/21 19:08 Ur Squamous Epith Cells 1 /hpf (0-4) 06/03/21 19:08 Calcium Oxalate Crystal Occasional /hpf (None) H 06/03/21 19:08 Urine Bacteria Moderate /hpf (None) H 06/03/21 19:08 Hyaline Casts 10 /lpf (0-2) H 06/03/21 19:08 Urine Mucus Many /hpf (None) H 06/03/21 19:08 Salicylates <1.0 mg/dL 05/31/21 16:12 Urine Opiates Screen Not Detected (NotDetected) 06/02/21 04:23 Ur Oxycodone Screen Not Detected (NotDetected) 06/02/21 04:23 Urine Methadone Screen Not Detected (NotDetected) 06/02/21 04:23 Ur Propoxyphene Screen Not Detected (NotDetected) 06/02/21 04:23 Acetaminophen <10.0 ug/mL 05/31/21 16:12 Ur Barbiturates Screen Not Detected (NotDetected) 06/02/21 04:23 U Tricyclic Antidepress Not Detected (NotDetected) 06/02/21 04:23 Ur Phencyclidine Scrn Not Detected (NotDetected) 06/02/21 04:23 Ur Amphetamines Screen Not Detected (NotDetected) 06/02/21 04:23 U Methamphetamines Scrn Not Detected (NotDetected) 06/02/21 04:23 U Benzodiazepines Scrn Not Detected (NotDetected) 06/02/21 04:23 Urine Cocaine Screen Not Detected (NotDetected) 06/02/21 04:23 U Marijuana (THC) Screen Not Detected (NotDetected) 06/02/21 04:23 Serum Alcohol <10 mg/dL 05/31/21 16:12 Coronavirus (PCR) Not Detected (Not Detectd) 05/31/21 21:33 Allergies Allergy/AdvReac Type Severity Reaction Status Date / Time No Known Allergies Allergy Verified 06/01/21 05:41 Patient Condition at Discharge: Stable Plan - Discharge Summary Discharge Rx Participant: No New Discharge Prescriptions: New dronabinoL [Marinol] 2.5 mg PO AC-BID 30 Days cap FLUoxetine HCL [PROzac] 60 mg PO DAILY 30 Days cap OLANZapine ODT [ZyPREXA Zydis] 20 mg PO HS 30 Days tab Continue lisinopriL [Zestril] 5 mg PO DAILY #30 tab Albuterol Inhaler [Ventolin Hfa Inhaler] 1 puff INHALATION RT-TID PRN #8 gm PRN Reason: difficulty breathing Discontinued LORazepam [Ativan] 1 mg PO DIRECTED busPIRone HCl [Buspar] 20 mg PO BID 30 Days tab OLANZapine [ZyPREXA] 10 mg PO HS 30 Days tab OLANZapine [ZyPREXA] 2.5 mg PO DAILY 30 Days tab Sertraline HCl [Zoloft] 150 mg PO DAILY Discharge Medication List Albuterol Inhaler [Ventolin Hfa Inhaler] 1 puff INHALATION RT-TID PRN #8 gm 05/09/21 [Rx] lisinopriL [Zestril] 5 mg PO DAILY #30 tab 05/09/21 [Rx] FLUoxetine HCL [PROzac] 60 mg PO DAILY 30 Days cap 07/05/21 [Rx] OLANZapine ODT [ZyPREXA Zydis] 20 mg PO HS 30 Days tab 07/05/21 [Rx] dronabinoL [Marinol] 2.5 mg PO AC-BID 30 Days cap 07/05/21 [Rx] Follow up Appointment(s)/Referral(s): [facility] [Outside] - 07/11/21 1:00 pm (07/11/21 @ [address] [place] [address] intake w/ Karla at [facility] ) Gamaliel Castañeda DO [Primary Care Provider] - 1-2 days Ambulatory/Diagnostic Orders: Ambulatory Miscellaneous Order [MISC.AMB] Location: None Selected Miscellaneous Therapy Services Order [THER.AMB] Location: None Selected Patient Instructions/Handouts: Generalized Anxiety Disorder (GEN) Activity/Diet/Wound Care/Special Instructions: Activity and diet as tolerated. Avoid the use of street drugs and alcohol. Take all medications as prescribed. When you are in need of refills on your medications please contact your medical provider and/or outpatient psychiatrist to have this done. Please go to scheduled outpatient appointment for aftercare treatment. If symptoms return or become worse, call the crisis line at and/or go to the nearest emergency room for evaluation Discharge Disposition: HOME SELF-CARE
== END 2021-07-05 11:30 | disposition home or self-care (01) | DRG 885 ==
LOC: EC 15:01 → 3MHU 23:03
PROVIDERS: ADMIT Psychiatry & Neurology Psychiatry; ATTEND Psychiatry & Neurology Psychiatry
DX: F25.0 Schizoaffective disorder, bipolar type (principal); N39.0 Urinary tract infection, site not specified; F41.9 Anxiety disorder, unspecified; F42.4 Excoriation (skin-picking) disorder; G47.00 Insomnia, unspecified; E78.5 Hyperlipidemia, unspecified; E87.6 Hypokalemia; G83.9 Paralytic syndrome, unspecified; I10 Essential (primary) hypertension; M85.80 Other specified disorders of bone density and structure, unspecified site; R13.10 Dysphagia, unspecified; J44.9 Chronic obstructive pulmonary disease, unspecified; S00.81XA Abrasion of other part of head, initial encounter; Z79.899 Other long term (current) drug therapy; Z80.0 Family history of malignant neoplasm of digestive organs; Z81.8 Family history of other mental and behavioral disorders; Z83.2 Family history of diseases of the blood and blood-forming organs and certain disorders involving the immune mechanism; Z82.69 Family history of other diseases of the musculoskeletal system and connective tissue; Z85.3 Personal history of malignant neoplasm of breast; Z87.410 Personal history of cervical dysplasia; Z87.891 Personal history of nicotine dependence; Z91.14 Patient's other noncompliance with medication regimen; Z92.3 Personal history of irradiation; Z91.83 Wandering in diseases classified elsewhere; Z60.2 Problems related to living alone; Z28.310 Unvaccinated for COVID-19; Z20.822 Contact with and (suspected) exposure to COVID-19
CPT/HCPCS: 71046; 80048; 80053; 80061; 80076; 80143; 80179; 80306; 80320; 81001; 82150; 82607; 82746; 83036; 83540; 83550; 83690; 84443; 84484; 85025; 87086; 87635; 99285

== ENCOUNTER 2021-09-15 20:11 | Emergency (ER) | payer MEDICARE, BC ==
[2021-09-15 20:34] VITALS: BP 141/88; PULSE 116; RESP 20; TEMP 97.8
[2021-09-15] MEDS ORDERED: SULFAMETHOX-TMP 800-160MG 1 EACH TAB PO STA (22:28)
--- NOTE | 2021-09-15 22:30 | ED ---
Skin/Abscess/FB HPI - General Chief complaint: Skin/Abscess/Foreign Body Stated complaint: staph infection on back of the head Time Seen by Provider: 09/15/21 21:39 Source: patient, RN notes reviewed Mode of arrival: ambulatory Limitations: no limitations - History of Present Illness Initial comments: This is a 70 year female presenting to the emergency department complaining of a boil to the back of her neck which is been there for "a few days. "Patient states there might have been something there for longer than that. However she states is now starting to get irritated. Patient states she feels fine otherwise. No fever, no chills, no other skin rashes or manifestations. No headache, no fever or chills, no changes in vision or hearing, no sore throat or difficulty with speech, no neck pain, no chest pain or shortness of breath, no abdominal pain, no nausea or vomiting, no changes in urination or bowel movements, no numbness or tingling, no extremity pain, no skin rashes or lesions. Past medical, surgical, social, and family history reviewed. She does have a history of breast cancer but is undergoing no current chemotherapy or radiation. MD complaint: abscess/boil - Related Data Home Medications Medication Instructions Recorded Confirmed FLUoxetine HCL [Sarafem] 60 mg PO DAILY 09/15/21 09/15/21 Previous Rx's Medication Instructions Recorded Albuterol Inhaler [Ventolin Hfa 1 puff INHALATION RT-TID PRN #8 gm 05/09/21 Inhaler] OLANZapine ODT [ZyPREXA Zydis] 20 mg PO HS 30 Days tab 07/05/21 Sulfamethox-Tmp 800-160Mg [Bactrim 1 tab PO Q12HR #20 tab 09/15/21 DS 800-160 mg] Allergies Allergy/AdvReac Type Severity Reaction Status Date / Time No Known Allergies Allergy Verified 09/15/21 22:38 Review of Systems ROS Statement: Those systems with pertinent positive or pertinent negative responses have been documented in the HPI. ROS Other: All systems not noted in ROS Statement are negative. Past Medical History Past Medical History: Cancer, Eye Disorder, GERD/Reflux, Hyperlipidemia, Hypertension, Pneumonia Additional Past Medical History / Comment(s): R breast cancer with lumpectomy and radiation 2016, osteopenia, vertigo at times, dry eyes bilaterally,hypotensive episode 01/22/19. 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 Cervical dysplasia 1988. History of Any Multi-Drug Resistant Organisms: None Reported Past Surgical History: Breast Surgery, Tonsillectomy Additional Past Surgical History / Comment(s): 1989 R breast excisional biopsy, benign cyst removed from R breast, 2017 R breast lumpectomy, D&C, cervical conization 1988, colonoscopy 2001. Past Anesthesia/Blood Transfusion Reactions: No Reported Reaction Additional Past Anesthesia/Blood Transfusion Reaction / Comment(s): "Sensitivity to anesthesia" Past Psychological History: Anxiety, Depression Smoking Status: Never smoker Past Alcohol Use History: Occasional Past Drug Use History: None Reported - Past Family History Father Family Medical History: Cancer Additional Family Medical History / Comment(s): Father at age 74 from colon cancer. Mother Family Medical History: Deep Vein Thrombosis (DVT) Additional Family Medical History / Comment(s): Mother had back problems and scoliosis and at age 89. Brother(s) Additional Family Medical History / Comment(s): Patient has 1 brother with no major medical problems. Patient does not have any sisters. Patient has 1 son. General Exam - General Exam Comments Initial Comments: 70-year-old female in no significant distress. Patient does not appear to be ill or toxic. Limitations: no limitations General appearance: alert, in no apparent distress Head exam: Present: atraumatic, normocephalic, normal inspection Eye exam: Present: normal appearance, PERRL, EOMI. Absent: scleral icterus, conjunctival injection, periorbital swelling ENT exam: Present: normal exam, mucous membranes moist, normal external ear exam Neck exam: Present: full ROM. Absent: normal inspection (Patient has a 3 cm diameter superficial mass to the back of her neck with eschar. There is some evidence of purulent drainage. No surrounding cellulitis.), tenderness, meningismus, lymphadenopathy Respiratory exam: Present: normal lung sounds bilaterally. Absent: respiratory distress, wheezes, rales, rhonchi, stridor Cardiovascular Exam: Present: regular rate, normal rhythm, normal heart sounds. Absent: systolic murmur, diastolic murmur, rubs, gallop, clicks GI/Abdominal exam: Present: soft, normal bowel sounds. Absent: distended, tenderness, guarding, rebound, rigid Extremities exam: Present: normal inspection, full ROM, normal capillary refill. Absent: tenderness, pedal edema, joint swelling, calf tenderness Back exam: Present: normal inspection Neurological exam: Present: alert, oriented X3, CN II-XII intact Psychiatric exam: Present: normal affect, normal mood Skin exam: Present: warm, dry, normal color. Absent: intact (As noted above on neck exam, patient also has several excoriations noted to the scalp.), rash Course Vital Signs 09/15/21 20:31 Temperature 97.8 F Pulse Rate 116 H Respiratory 20 Rate Blood Pressure 141/88 O2 Sat by Pulse 99 Oximetry Medical Decision Making - Medical Decision Making Patient appears to have a neck lesion, possibly malignant to the posterior aspect of her neck. No definitive secondary infection. Patient is not look unwell. Patient does not appear to be systemically ill. States she feels fine otherwise. Vital signs reviewed, heart rate by my auscultation is 88 bpm. Vital signs stable otherwise. To cover the patient with antibiotics. Patient will need to see her regular physician as well as dermatology. She is to call first thing Saturday for follow-up. Reviewed these instructions with the patient. She voiced understanding. I attempted to call the patient's son, I did leave a message. I did send a wound culture for completeness sake Patient was told to return to the ER for any signs or symptoms worsen. Told to return immediately if any other problems arise. All questions answered. Treatment plan discussed. Patient in agreement Every effort has been made to ensure accuracy of this dictation. However, due to the limitations of electronic medical records and dictation devices, errors in charting still occur. The case was discussed in detail with ED attending physician. Presentation, findings, treatment plan discussed in detail. Patient was also seen and assessed by the ED attending physician. Adolescent Counselor Dr. Bundy Disposition Clinical Impression: Skin lesion Narrative: Skin lesion of the back with no definitive secondary infection Disposition: HOME SELF-CARE Condition: Stable Additional Instructions: Skin lesion, neck, will need further assessment by the primary care physician and dermatology. Call at 8 AM Saturday for follow-up. Take antibiotics as directed. Follow-up with your regular physician as directed. Return to the ER immediately if any symptoms worsen, new symptoms arise, or any other problems develop. Is patient prescribed a controlled substance at d/c from ED?: No Referrals: Gamaliel Castañeda DO [Primary Care Provider] - 09/18/21 8:00 am Koki Miller MD [STAFF PHYSICIAN] - 09/18/21 8:00 am Time of Disposition: 23:07
== END 2021-09-15 23:56 | disposition home or self-care (01) ==
LOC: EC 20:11
DX: L98.9 Disorder of the skin and subcutaneous tissue, unspecified (principal); E78.5 Hyperlipidemia, unspecified; I10 Essential (primary) hypertension

== ENCOUNTER 2021-09-22 13:57 | Inpatient (IN) | payer MEDICARE, BC ==
[2021-09-22] MEDS ORDERED: cefTRIAXone IN SWFI 1,000 MG/10 ML SYRINGE IVP STA (15:12)
[2021-09-22] MEDS ORDERED: VANCOMYCIN IV PER PHARMACY 1 EACH MISC MISCELLANE PRN (15:13)
[2021-09-22] MEDS ORDERED: VANCOMYCIN 1,000 MG in SODIUM CHLORIDE 0.9% 250 ML IVPB STA (15:17)
[2021-09-22] MEDS ORDERED: ACETAMINOPHEN TAB 325 MG TAB PO PRN (15:28)
[2021-09-22] MEDS ORDERED: NALOXONE 0.4 MG/ML 1 ML VIAL IV PRN (15:28)
--- NOTE | 2021-09-22 15:33 | ED ---
General Adult HPI - General Chief complaint: Skin/Abscess/Foreign Body Stated complaint: possible infection Time Seen by Provider: 09/22/21 14:37 Source: patient, EMS, RN notes reviewed, old records reviewed Mode of arrival: EMS Limitations: no limitations - History of Present Illness Initial comments: 70-year-old female presents for reevaluation of right occipital scalp wound. Patient states that his been there for approximately one week she was started on antibiotics after previous ER visit. She denies fever but she states that the infection does seem to be worsening patient is a poor historian. By review the medical record it does appear that she is currently on Bactrim.. - Related Data Home Medications Medication Instructions Recorded Confirmed FLUoxetine HCL [Sarafem] 60 mg PO DAILY 09/15/21 09/22/21 Previous Rx's Medication Instructions Recorded Albuterol Inhaler [Ventolin Hfa 1 puff INHALATION RT-TID PRN #8 gm 05/09/21 Inhaler] OLANZapine ODT [ZyPREXA Zydis] 20 mg PO HS 30 Days tab 07/05/21 Sulfamethox-Tmp 800-160Mg [Bactrim 1 tab PO Q12HR #20 tab 09/15/21 DS 800-160 mg] Allergies Allergy/AdvReac Type Severity Reaction Status Date / Time No Known Allergies Allergy Verified 09/15/21 22:38 Review of Systems ROS Statement: Those systems with pertinent positive or pertinent negative responses have been documented in the HPI. ROS Other: All systems not noted in ROS Statement are negative. Past Medical History Past Medical History: Cancer, Eye Disorder, GERD/Reflux, Hyperlipidemia, Hypertension, Pneumonia Additional Past Medical History / Comment(s): R breast cancer with lumpectomy and radiation 2016, osteopenia, vertigo at times, dry eyes bilaterally,hypotensive episode 01/22/19. 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 Cervical dysplasia 1988. History of Any Multi-Drug Resistant Organisms: None Reported Past Surgical History: Breast Surgery, Tonsillectomy Additional Past Surgical History / Comment(s): 1989 R breast excisional biopsy, benign cyst removed from R breast, 2016 R breast lumpectomy, D&C, cervical conization 1988, colonoscopy 2001. Past Anesthesia/Blood Transfusion Reactions: No Reported Reaction Additional Past Anesthesia/Blood Transfusion Reaction / Comment(s): "Sensitivity to anesthesia" Past Psychological History: Anxiety, Depression Smoking Status: Never smoker Past Alcohol Use History: Occasional Past Drug Use History: None Reported - Past Family History Father Family Medical History: Cancer Additional Family Medical History / Comment(s): Father at age 74 from colon cancer. Mother Family Medical History: Deep Vein Thrombosis (DVT) Additional Family Medical History / Comment(s): Mother had back problems and scoliosis and at age 89. Brother(s) Additional Family Medical History / Comment(s): Patient has 1 brother with no major medical problems. Patient does not have any sisters. Patient has 1 son. General Exam General appearance: alert, in no apparent distress Head exam: Present: other (Large open wound to the occipital scalp with surrounding erythema) Neck exam: Present: normal inspection Respiratory exam: Present: normal lung sounds bilaterally. Absent: respiratory distress, wheezes Cardiovascular Exam: Present: regular rate, normal rhythm GI/Abdominal exam: Present: soft. Absent: distended, tenderness Extremities exam: Present: normal inspection, normal capillary refill Neurological exam: Present: alert, oriented X3, CN II-XII intact. Absent: motor sensory deficit Psychiatric exam: Present: normal affect, normal mood Skin exam: Present: warm Course Vital Signs 09/22/21 13:59 Temperature 98.0 F Pulse Rate 78 Respiratory 16 Rate Blood Pressure 118/62 O2 Sat by Pulse 99 Oximetry Medical Decision Making - Medical Decision Making 70-year-old female with large nonhealing right occipital open abscess. There is a central purulence which is freely draining. Patient has been on antibiotics and believes that this is worsening. She will benefit from both wound care and infectious disease consult. She's placed on IV antibiotics. Case discussed with Dr. Couch who will admit. Blood cultures and laboratory testing are pending. Disposition Clinical Impression: Non-healing wound, Scalp abscess Disposition: ADMITTED IP TO THIS HOSP Condition: Stable Is patient prescribed a controlled substance at d/c from ED?: No Referrals: Gamaliel Castañeda DO [Primary Care Provider] - 1-2 days Time of Disposition: 15:33
[2021-09-22] MEDS: SODIUM CHLORIDE 0.9% 1,000 ML IV SCH (15:44)
[2021-09-22 15:55] LABS: Basophils # (A) 0.1 k/uL (0-0.2); Basophils % (A) 1 %; Eosinophils # (A) 0.1 k/uL (0-0.7); Eosinophils % (A) 1 %; HCT 45.3 % (34.0-46.0); HGB 15.3 gm/dL (11.4-16.0); Lymphocytes # (A) 2.1 k/uL (1.0-4.8); Lymphocytes % (A) 22 %; MCH 29.4 pg (25.0-35.0); MCHC 33.7 g/dL (31.0-37.0); MCV 87.3 fL (80.0-100.0); Mean Platelet Volume 7.4; Monocytes # (A) 0.5 k/uL (0-1.0); Monocytes % (A) 5 %; Neutrophils # (A) 6.9 k/uL (1.3-7.7); Neutrophils % (A) 71 %; Platelet Count 432 k/uL (150-450); RBC 5.19 m/uL (3.80-5.40); RDW 12.7 % (11.5-15.5); WBC 9.7 k/uL (3.8-10.6)
--- NOTE | 2021-09-22 22:06 | P.CONS ---
History of Present Illness - Reason for Consult Consult date: 09/22/21 Nonhealing wound Requesting physician: Chito Lang - Chief Complaint Pain and nonhealing wound with a scalp x weeks - History of Present Illness Patient is a 70-year-old female with multiple medical problem including hypertension hyperlipidemia right breast cancer presenting to the hospital for evaluation of wound to the right occipital area patient mention has been there for more than a week she is not clear how it started better the patient was seen in the ER about a week ago has been treated with antibiotic without any provement patient complaining of pain to the right posterior scalp area as throbbing at times sharp 7-8 out of 10 no radiation with associated swelling redness and did have some minimal drainage patient did have some chills but denies high-grade fever with the symptoms the patient was evaluated on arrival to the ER the patient was afebrile patient did have a normal white count patient received a dose of vancomycin and Rocephin has been admitted to hospital infectious disease was consulted for further management of antibiotic therapy Review of Systems Positive point has been mentioned in the HPI rest of the systems are negative Past Medical History Past Medical History: Cancer, Eye Disorder, GERD/Reflux, Hyperlipidemia, Hypertension, Pneumonia Additional Past Medical History / Comment(s): R breast cancer with lumpectomy and radiation 2016, osteopenia, vertigo at times, dry eyes bilaterally,hypotensive episode 01/22/19. 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 Cervical dysplasia 1988. History of Any Multi-Drug Resistant Organisms: None Reported Past Surgical History: Breast Surgery, Tonsillectomy Additional Past Surgical History / Comment(s): 1989 R breast excisional biopsy, benign cyst removed from R breast, 2016 R breast lumpectomy, D&C, cervical conization 1988, colonoscopy 2001. Past Anesthesia/Blood Transfusion Reactions: No Reported Reaction Additional Past Anesthesia/Blood Transfusion Reaction / Comm: "Sensitivity to anesthesia" Past Psychological History: Anxiety, Depression Smoking Status: Never smoker Past Alcohol Use History: Occasional Past Drug Use History: None Reported - Past Family History Father Family Medical History: Cancer Additional Family Medical History / Comment(s): Father at age 74 from colon cancer. Mother Family Medical History: Deep Vein Thrombosis (DVT) Additional Family Medical History / Comment(s): Mother had back problems and scoliosis and at age 89. Brother(s) Additional Family Medical History / Comment(s): Patient has 1 brother with no major medical problems. Patient does not have any sisters. Patient has 1 son. Medications and Allergies Home Medications Medication Instructions Recorded Confirmed Type Albuterol Inhaler [Ventolin Hfa 1 puff INHALATION RT-TID PRN #8 gm 05/09/21 09/22/21 Rx Inhaler] OLANZapine ODT [ZyPREXA Zydis] 20 mg PO HS 30 Days tab 07/05/21 09/22/21 Rx FLUoxetine HCL [Sarafem] 60 mg PO DAILY 09/15/21 09/22/21 History Acetaminophen Tab [Tylenol] 650 mg PO Q6HR PRN tab 09/27/21 Rx Albuterol Nebulized [Ventolin 2.5 mg INHALATION RT-TID PRN ml 09/27/21 Rx Nebulized] OLANZapine [ZyPREXA] 5 mg PO Q6H PRN tab 09/27/21 Rx Ondansetron Odt [Zofran Odt] 4 mg PO Q8HR PRN #20 tab 09/27/21 Rx Vancomycin 1,250 mg IVPB Q12H 14 Days #28 each 09/27/21 Rx Allergies Allergy/AdvReac Type Severity Reaction Status Date / Time No Known Allergies Allergy Verified 09/15/21 22:38 Physical Exam Vitals: Vital Signs Temp Pulse Resp BP Pulse Ox 09/22/21 13:59 98.0 F 78 16 118/62 99 Intake and Output 09/22/21 09/22/21 09/22/21 06:59 14:59 22:59 Other: Weight 58.967 kg GENERAL DESCRIPTION: Elderly female lying in bed, no distress. No tachypnea or accessory muscle of respiration use. HEENT: Shows Pallor , no scleral icterus. Oral mucous membrane is dry. No pharyngeal erythema or thrush NECK: Trachea central, no thyromegaly. LUNGS: Unlabored breathing. Clear to auscultation anteriorly. No wheeze or crackle. HEART: S1, S2, regular rate and rhythm. No loud murmur ABDOMEN: Soft, no tenderness , guarding or rigidity, no organomegaly EXTREMITIES: No edema of feet. SKIN: No rash, no masses palpable. Scalp did have a wound with slough tissue surrounding redness NEUROLOGICAL: The patient is awake, alert, oriented x3, mood and affect normal. Results CBC & Chem 7: 09/26/21 05:36 09/27/21 10:55 Assessment and Plan (1) Non-healing wound Current Visit: Yes Status: Acute Code(s): UBQ7016 - SNOMED Code(s): 083108102 (2) Scalp abscess Current Visit: Yes Status: Acute Code(s): L02.811 - CUTANEOUS ABSCESS OF HEAD [ANY PART, EXCEPT FACE] SNOMED Code(s): 84556027 Plan: 1patient with a right posterior scalp abscess and cellulitis with a nonhealing wound likely from gram-positive skin osei as the patient did have evidence of folliculitis and possible MRSA failing outpatient oral antibiotic therapy. 2patient will benefit from general surgery evaluation for debridement drainage of the abscess and deep culture. 3vancomycin pharmacy to dose target trough of 15 while watching kidney function and vancomycin trough closely. We will follow on clinical condition and cultures to further adjust medication if needed Thank you for this consultation will follow this patient along with you Time with Patient: Greater than 30
[2021-09-22] MEDS ORDERED: ALBUTEROL NEBULIZED 2.5 MG/3 ML INHALATION PRN (23:21)
[2021-09-22] MEDS ORDERED: OLANZapine ODT 5 MG TAB PO SCH (23:30)
--- NOTE | 2021-09-22 23:31 | P.HPIM ---
History of Present Illness H&P Date: 09/22/21 Chief Complaint: Neck wound infection Patient is a 70-year-old female with known history of right breast cancer with lumpectomy and radiation in 2017, hypertension, hyperlipidemia, anxiety/depression presents to ER with complaints of nonhealing ulcer on the right side of the skull base is has not been healing well with outpatient antibiotic therapy for the past 1 week. Patient was seen by ER and was started on antibiotic in the form of Bactrim without much improvement. Patient was having purulent drainage and pain. Denied any complaints of fever or chills. No nausea vomiting or abdominal pain. No headache or. No dizziness or lightheadedness. Patient was given a dose of vancomycin and ceftriaxone in the ER. Laboratory data showed WBC 9.7 hemoglobin 13.3 and platelets 432 lactic acid 1.5 Patient is a very poor historian Review of Systems Constitutional: Patient denies any fever or chills . no Generalized weakness. Abdomen: Patient denied any nausea or vomiting or abd. pain Cardiovascular: Patient denies any chest pain or short of breath no palpitations. Respiratory: patient denied any cough is from production. No shortness of breath Neurologic: Patient denied any numbness or tingling headache. Musculoskeletal: Patient denies any complaints of joint swelling or deformity. Skin: Negative, as per HPI Psychiatric: Negative Endocrine: No heat or cold intolerance. No recent weight gain. Genitourinary: No dysuria or hematuria. All other 14 point ROS negative except the above Past Medical History Past Medical History: Cancer, Eye Disorder, GERD/Reflux, Hyperlipidemia, Hypertension, Pneumonia Additional Past Medical History / Comment(s): R breast cancer with lumpectomy and radiation 2016, osteopenia, vertigo at times, dry eyes bilaterally,hypotensive episode 01/22/19. 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 Cervical dysplasia 1988. History of Any Multi-Drug Resistant Organisms: None Reported Past Surgical History: Breast Surgery, Tonsillectomy Additional Past Surgical History / Comment(s): 1989 R breast excisional biopsy, benign cyst removed from R breast, 2016 R breast lumpectomy, D&C, cervical conization 1988, colonoscopy 2001. Past Anesthesia/Blood Transfusion Reactions: No Reported Reaction Additional Past Anesthesia/Blood Transfusion Reaction / Comment(s): "Sensitivity to anesthesia" Past Psychological History: Anxiety, Depression Smoking Status: Never smoker Past Alcohol Use History: Occasional Past Drug Use History: None Reported - Past Family History Father Family Medical History: Cancer Additional Family Medical History / Comment(s): Father at age 74 from colon cancer. Mother Family Medical History: Deep Vein Thrombosis (DVT) Additional Family Medical History / Comment(s): Mother had back problems and scoliosis and at age 89. Brother(s) Additional Family Medical History / Comment(s): Patient has 1 brother with no major medical problems. Patient does not have any sisters. Patient has 1 son. Medications and Allergies Home Medications Medication Instructions Recorded Confirmed Type Albuterol Inhaler [Ventolin Hfa 1 puff INHALATION RT-TID PRN #8 gm 05/09/21 09/22/21 Rx Inhaler] OLANZapine ODT [ZyPREXA Zydis] 20 mg PO HS 30 Days tab 07/05/21 09/22/21 Rx FLUoxetine HCL [Sarafem] 60 mg PO DAILY 09/15/21 09/22/21 History Sulfamethox-Tmp 800-160Mg [Bactrim 1 tab PO Q12HR #20 tab 09/15/21 09/22/21 Rx DS 800-160 mg] Allergies Allergy/AdvReac Type Severity Reaction Status Date / Time No Known Allergies Allergy Verified 09/15/21 22:38 Physical Exam Vitals: Vital Signs Temp Pulse Resp BP Pulse Ox 09/22/21 13:59 98.0 F 78 16 118/62 99 Intake and Output 09/22/21 09/22/21 09/22/21 06:59 14:59 22:59 Other: Weight 58.967 kg PHYSICAL EXAMINATION: Patient is lying in the bed comfortably, no acute distress, awake alert and oriented.. HEENT: Normocephalic. Neck is supple. Pupils reactive. Nostrils clear. Oral cavity is moist. Neck reveals no JVD, carotid bruits, or thyromegaly. CHEST EXAMINATION: Trachea is central. Symmetrical expansion. Lung carrera clear to auscultation and percussion. CARDIAC: Normal S1, S2 with no gallops. No murmurs ABDOMEN: Soft. Bowel sounds present. Nontender. No organomegaly. No abdominal bruits. Extremities: reveal no edema. No clubbing or cyanosis Neurologically awake, alert, oriented x2-3 with well-coordinated movements. No focal deficits noted Skin: No rash or skin lesions. Large wound on the right side of the occipital scalp with surrounding redness and purulent base. Mild tenderness and warmth. Psychiatric: Coperative. Nonsuicidal, anxious. Musculoskeletal: No joint swelling or deformity. Normal range of motion. Results CBC & Chem 7: 09/22/21 15:23 Thrombosis Risk Factor Assmnt - DVT/VTE Prophylaxis DVT/VTE Prophylaxis: Pharmacologic Prophylaxis ordered Assessment and Plan Assessment: Nonhealing ulcer on the right side of the neck at the occipital region with failed outpatient antibiotic therapy.. Hypertension Hyperlipidemia GERD History of right breast cancer with lumpectomy and radiation in 2017 Anxiety/depression DVT prophylaxis Plan: Patient will be continued on antibiotics of vancomycin. Follow-up wound culture reports and wound care was consulted. ID is on board. Continue with home medication including fluoxetine and olanzapine. Follow-up closely. Time with Patient: Greater than 30
[2021-09-22] MEDS: OLANZapine ODT 10 MG TAB PO SCH (23:47)
[2021-09-23] MEDS: SODIUM CHLORIDE 0.9% 1,000 ML IV SCH ×3 (00:05→21:00)
[2021-09-23] MEDS: VANCOMYCIN 1,000 MG in SODIUM CHLORIDE 0.9% 250 ML IVPB SCH ×2 (05:20→17:33)
[2021-09-23 07:35] LABS: Partial Thromboplastin Time 24.4 sec (22.0-30.0)
[2021-09-23] MEDS: FLUoxetine HCL 20 MG CAP PO SCH ×2 (09:11→11:01)
[2021-09-23 11:53] LABS: ALT <5 U/L (8-44); AST 15 U/L (13-35); African American GFR (CKD) 110.2 (60.0-200.0); Albumin 3.6 g/dL (3.8-4.9); Albumin/Globulin Ratio 1.41 (1.60-3.17); Alkaline Phosphatase 74 U/L (41-126); Blood Urea Nitrogen 12.4 mg/dL (9.0-27.0); Calcium 9.5 mg/dL (8.7-10.3); Carbon Dioxide 26.3 mmol/L (20.0-27.5); Chloride 99 mmol/L (96-109); Globulin 2.6 g/dL (1.6-3.3); Glucose 85 mg/dL (70-110); Non-African American GFR(CKD) 95.1 (60.0-200.0); Potassium 3.1 mmol/L (3.5-5.5); Sodium 140 mmol/L (135-145); Total Protein 6.2 g/dL (6.2-8.2)
[2021-09-23] MEDS ORDERED: POTASSIUM CHLORIDE ER 20 MEQ TAB.ER PO STA (14:51)
[2021-09-23] MEDS: OLANZapine ODT 10 MG TAB PO SCH (20:59)
--- NOTE | 2021-09-23 20:59 | P.PN ---
Subjective Progress Note Date: 09/23/21 Principal diagnosis: Scalp abscess/wound Patient is a 70-year female with a nonhealing wound to the posterior scalp area and concerning for an abscess and secondary cellulitis. On today's evaluation that is 09/23/2021, the patient denies having any fever or any chills patient is currently breathing comfortably still having a significant pain to the right posterior scalp area minimal drainage no chest pain shortness of breath or cough no abdominal pain no diarrhea Objective - Vital Signs Vital signs: Vital Signs Temp 97.7 F 09/23/21 14:00 Pulse 75 09/23/21 14:00 Resp 17 09/23/21 14:00 BP 136/69 09/23/21 14:00 Pulse Ox 100 09/23/21 14:00 FiO2 Intake & Output 09/22/21 09/23/21 09/23/21 18:59 06:59 18:59 Intake Total 450 Balance 450 Weight 58.967 kg 58.967 kg Intake: Intake, IV Titration 450 Amount Sodium Chloride 0.9% 1, 200 000 ml @ 100 mls/hr IV . Q10H [facility] Rx#:[id number] Vancomycin 1,000 mg In 250 Sodium Chloride 0.9% 250 ml @ 125 mls/hr IVPB ONCE STA Rx#:[id number] - Exam GENERAL DESCRIPTION: Elderly female lying in bed, no distress. No tachypnea or accessory muscle of respiration use. HEENT: Scalp on the right side did have an open wound with surrounding swelling redness LUNGS: Unlabored breathing. Clear to auscultation anteriorly. No wheeze or crackle. HEART: S1, S2, regular rate and rhythm. No loud murmur ABDOMEN: Soft, no tenderness , guarding or rigidity, no organomegaly EXTREMITIES: No edema of feet. - Labs CBC & Chem 7: 09/22/21 15:23 09/23/21 06:48 Labs: Abnormal Lab Results - Last 24 Hours (Table) 09/23/21 Range/Units 06:48 Potassium 3.1 L (3.5-5.5) mmol/L BUN/Creatinine Ratio 22.10 H (12.00-20.00) Ratio ALT <5 L (8-44) U/L Albumin 3.6 L (3.8-4.9) g/dL Albumin/Globulin Ratio 1.41 L (1.60-3.17) g/dL Microbiology - Last 24 Hours (Table) 09/22/21 16:30 Wound Culture - Preliminary Head Assessment and Plan (1) Scalp abscess Current Visit: Yes Status: Acute Code(s): L02.811 - CUTANEOUS ABSCESS OF HEAD [ANY PART, EXCEPT FACE] SNOMED Code(s): 24084404 Plan: 1patient with a right posterior scalp abscess and cellulitis with a nonhealing wound likely from gram-positive skin osei as the patient did have evidence of folliculitis and possible MRSA failing outpatient oral antibiotic therapy. 2patient will benefit from general surgery evaluation for debridement drainage of the abscess and deep culture, surgical eval is currently pending. 3Pt to continue with vancomycin pharmacy to dose target trough of 15 while watching kidney function and vancomycin trough closely. Time with Patient: Less than 30
[2021-09-24] MEDS: VANCOMYCIN 1,000 MG in SODIUM CHLORIDE 0.9% 250 ML IVPB SCH ×2 (05:01→17:09)
[2021-09-24] MEDS: SODIUM CHLORIDE 0.9% 1,000 ML IV SCH ×2 (05:02→17:09)
--- NOTE | 2021-09-24 08:03 | P.GSCN ---
History of Present Illness Consult date: 09/23/21 History of present illness: REASON FOR CONSULTATION: Scalp abscess HISTORY OF PRESENT ILLNESS: The patient is a 70 year old female admitted with two-week history of abscess along the right occiput of the scalp. She reports that it developed as a pimple. She picked it and tried to drain it herself. No prior episodes. She is unsure if she was bitten by a spider which caused her abscess. She tried to self treat with hydrogen peroxide and soap. Her abscess continued to grow. She presented emergency room one week ago was placed on antibiotics. She reports taking antibiotics with failure of improvement of her scalp abscess. Due to the progression and worsening symptoms, patient presented to the hospital. She is admitted for failed outpatient management treatment of scalp abscess. Since admission, she reports drainage. PAST MEDICAL HISTORY: See list and reviewed PAST SURGICAL HISTORY: See list and reviewed MEDICATIONS: See list and reviewed ALLERGIES: See list and reviewed SOCIAL HISTORY: See list and reviewed FAMILY HISTORY: See list and reviewed REVIEW OF ORGAN SYSTEMS: CONSTITUTIONAL: No fevers or chills. EYES: Has dry eyes. No glasses. HEENT: No difficulties with hearing. No nosebleeds. No difficulty swallowing. RESPIRATORY: Past pneumonia. Denies any troubles with breathing or dyspnea on exertion. CARDIOVASCULAR: Has hyperlipidemia. Has hypertensive heart disease. GASTROINTESTINAL: Has gastroesophageal reflux disease. GENITOURINARY: Denies any blood in urine or increased urinary frequency. History of cervical dysplasia. NEUROLOGICAL: Denies any numbness or tingling along the distal extremities. No seizure disorders or headaches. MUSCULOSKELETAL: Denies any back pain, stiffness or joint arthritis. SKIN: No current skin cancer. No rash. PSYCHIATRIC: Has depressive disorder. Has generalized anxiety disorder. ENDOCRINE: Denies current thyroid disorders. Denies any blood sugar glucose intolerance. HEME/LYMPHATIC: Denies any lumps and bumps around the neck. No recent deep venous thrombosis. ALLERGY/IMMUNOLOGY: No immunoglobulin therapy. No immune deficiencies. BREAST: History of breast cancer. PHYSICAL EXAM: VITALS: Reviewed CONSTITUTIONAL: Well developed and in no acute distress. EYES: Conjuctivae without sclera icterus. Extraocular movements grossly intact. HEAD, EARS, NOSE, THROAT: Moist buccal mucosa. Head is atraumatic, normocephalic. Hears conversational speech. No nasal drainage. Has 3 cm foul- smelling purulent drainage right posterior scalp. Actively draining wound. NECK: Supple. No JV distention. No thyroidomegaly. RESPIRATORY: Non-labored respirations and equal bilateral excursions. No gross wheezes. CARDIOVASCULAR: Palpable 2+ radial pulses. ABDOMEN: Scaphoid. Nontender. LYMPH: No neck lymphadenopathy. MUSCULOSKELETAL: No clubbing cyanosis. SKIN: Warm and well perfused with good skin turgor. NEUROLOGIC: Cranial nerves II through XII grossly intact. No focal or lateralizing signs. PSYCH: Appropriate affect. Alert and oriented to person, place and time. Displays appropriate insight. CLINCAL LABS: Reviewed. WBC normal 9.7 on admission. IMAGING: None available RADIOLOGY: None available RECORDS: previous old records reviewed. Previous ER visit 1 week ago reviewed. Patient referred to substance abuse prevention coordinator for follow-up. ASSESSMENT: 1. Scalp abscess, failed outpatient treatment 2. History of breast cancer PLAN: 1. Her scalp abscess is actively draining. May benefit from warm compresses to further facilitate drainage. Additionally, may benefit from surgical intervention. 2. Patient started on antibiotics 3. Diet as tolerated ADVANCE DIRECTIVE: Thank you for this kind consultation. Past Medical History Past Medical History: Cancer, Eye Disorder, GERD/Reflux, Hyperlipidemia, Hypertension, Pneumonia Additional Past Medical History / Comment(s): R breast cancer with lumpectomy and radiation 2016, osteopenia, vertigo at times, dry eyes bilaterally,hypotensive episode 01/22/19. 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 Cervical dysplasia 1988. History of Any Multi-Drug Resistant Organisms: None Reported Past Surgical History: Breast Surgery, Tonsillectomy Additional Past Surgical History / Comment(s): 1989 R breast excisional biopsy, benign cyst removed from R breast, 2016 R breast lumpectomy, D&C, cervical conization 1988, colonoscopy 2001. Past Anesthesia/Blood Transfusion Reactions: No Reported Reaction Additional Past Anesthesia/Blood Transfusion Reaction / Comm: "Sensitivity to anesthesia" Past Psychological History: Anxiety, Depression Smoking Status: Never smoker Past Alcohol Use History: Occasional Past Drug Use History: None Reported - Past Family History Father Family Medical History: Cancer Additional Family Medical History / Comment(s): Father at age 74 from colon cancer. Mother Family Medical History: Deep Vein Thrombosis (DVT) Additional Family Medical History / Comment(s): Mother had back problems and scoliosis and at age 89. Brother(s) Additional Family Medical History / Comment(s): Patient has 1 brother with no major medical problems. Patient does not have any sisters. Patient has 1 son. Medications and Allergies Home Medications Medication Instructions Recorded Confirmed Type Albuterol Inhaler [Ventolin Hfa 1 puff INHALATION RT-TID PRN #8 gm 05/09/21 09/22/21 Rx Inhaler] OLANZapine ODT [ZyPREXA Zydis] 20 mg PO HS 30 Days tab 07/05/21 09/22/21 Rx FLUoxetine HCL [Sarafem] 60 mg PO DAILY 09/15/21 09/22/21 History Sulfamethox-Tmp 800-160Mg [Bactrim 1 tab PO Q12HR #20 tab 09/15/21 09/22/21 Rx DS 800-160 mg] Allergies Allergy/AdvReac Type Severity Reaction Status Date / Time No Known Allergies Allergy Verified 09/15/21 22:38 Surgical - Exam Vital Signs Temp Pulse Resp BP Pulse Ox 98.0 F 78 16 118/62 99 09/22/21 13:59 09/22/21 13:59 09/22/21 13:59 09/22/21 13:59 09/22/21 13:59 Results - Labs 09/22/21 15:23 09/23/21 06:48 Abnormal Lab Results - Last 24 Hours (Table) 09/23/21 Range/Units 06:48 Potassium 3.1 L (3.5-5.5) mmol/L BUN/Creatinine Ratio 22.10 H (12.00-20.00) Ratio ALT <5 L (8-44) U/L Albumin 3.6 L (3.8-4.9) g/dL Albumin/Globulin Ratio 1.41 L (1.60-3.17) g/dL Microbiology - Last 24 Hours (Table) 09/22/21 16:30 Wound Culture - Preliminary Head Presumptive MRSA 09/22/21 15:23 Blood Culture - Preliminary Blood No Growth after 24 hours 09/22/21 15:10 Blood Culture - Preliminary Blood No Growth after 24 hours Diabetes panel 09/23/21 Range/Units 06:48 Sodium 140 (135-145) mmol/L Potassium 3.1 L (3.5-5.5) mmol/L Chloride 99 (96-109) mmol/L Carbon Dioxide 26.3 (20.0-27.5) mmol/L BUN 12.4 (9.0-27.0) mg/dL Creatinine 0.6 (0.6-1.5) mg/dL Glucose 85 (70-110) mg/dL Calcium 9.5 (8.7-10.3) mg/dL AST 15 (13-35) U/L ALT <5 L (8-44) U/L Alkaline Phosphatase 74 (41-126) U/L Total Protein 6.2 (6.2-8.2) g/dL Albumin 3.6 L (3.8-4.9) g/dL Calcium panel 09/23/21 Range/Units 06:48 Calcium 9.5 (8.7-10.3) mg/dL Albumin 3.6 L (3.8-4.9) g/dL Pituitary panel 09/23/21 Range/Units 06:48 Sodium 140 (135-145) mmol/L Potassium 3.1 L (3.5-5.5) mmol/L Chloride 99 (96-109) mmol/L Carbon Dioxide 26.3 (20.0-27.5) mmol/L BUN 12.4 (9.0-27.0) mg/dL Creatinine 0.6 (0.6-1.5) mg/dL Glucose 85 (70-110) mg/dL Calcium 9.5 (8.7-10.3) mg/dL Adrenal panel 09/23/21 Range/Units 06:48 Sodium 140 (135-145) mmol/L Potassium 3.1 L (3.5-5.5) mmol/L Chloride 99 (96-109) mmol/L Carbon Dioxide 26.3 (20.0-27.5) mmol/L BUN 12.4 (9.0-27.0) mg/dL Creatinine 0.6 (0.6-1.5) mg/dL Glucose 85 (70-110) mg/dL Calcium 9.5 (8.7-10.3) mg/dL Total Bilirubin 0.40 (0.30-1.20) mg/dL AST 15 (13-35) U/L ALT <5 L (8-44) U/L Alkaline Phosphatase 74 (41-126) U/L Total Protein 6.2 (6.2-8.2) g/dL Albumin 3.6 L (3.8-4.9) g/dL
[2021-09-24] MEDS: FLUoxetine HCL 20 MG CAP PO SCH (08:46)
[2021-09-24 12:56] LABS: African American GFR (CKD) 114.5 (60.0-200.0); Anion Gap 14.1 mmol/L (10.00-18.00); BUN/Creat Ratio 9.6 Ratio (12.00-20.00); Blood Urea Nitrogen 4.8 mg/dL (9.0-27.0); Calcium 9.1 mg/dL (8.7-10.3); Carbon Dioxide 25.9 mmol/L (20.0-27.5); Non-African American GFR(CKD) 98.8 (60.0-200.0)
[2021-09-24] MEDS ORDERED: Potassium Replacement Protocol 1 EACH MISC MISCELLANE PRN (15:46)
[2021-09-24] MEDS ORDERED: POTASSIUM CHLORIDE ER 20 MEQ TAB.ER PO SCH (16:00)
[2021-09-24] MEDS ORDERED: OLANZapine 5 MG TAB PO PRN (17:31)
--- NOTE | 2021-09-24 17:31 | P.CN ---
Psychiatric Consult - . Consult date: 09/24/21 Consult:: IDENTIFYING DATA: This patient is a single, retired, 70-year-old female with history of schizoaffective disorder and skin picking disorder who was admitted due to worsening right occipital scalp abscess. REASON FOR REFERRAL: Psychiatry was consulted for "anxiety, medication managment" HISTORY OF PRESENT ILLNESS: The patient presented to the hospital with complaints of nonhealing ulcer on the right side of the skull base is has not been healing well with outpatient antibiotic therapy for the past 1 week. He spoke with patient's nurse who reports patient has been very anxious and appears paranoid, nurse reports patient thought nurse was going to hit her. Nurse reports patient appears suspicious of others. Patient has not been agitated. Nurse reports patient was noncompliant with medications at home. Nurse reports patient has been refusing to eat or bathe since admission 2 days ago. Review of chart shows patient's BMI is within normal weight range. Vitals are within normal limits. I evaluation, patient was found calmly laying in bed, is not agitated on my assessment. She denies anxiety or depressed mood. There are no overt features of kenneth or psychosis on assessment. She denies auditory or visual hallucinations, and does not appear to be attending to internal stimuli. No paranoid or delusional thought intent is expressed. She does appear guarded and her responses are brief. She is alert and oriented to person place time and situation. She admits to skin picking that up to her scalp wound and subsequent abscess. She denies any other concerns. She denies feeling anxious currently and states her mood is fine. She is currently compliant with her Prozac and Zyprexa. However she did refuse these medications on her first day of admission. At this time patient denies any suicidal or homicidal ideation, intent or plan. Patients denies alcohol or drug use. She is not interested in changing her medications at this time and prefers to keep her medications the same. PAST PSYCHIATRIC HISTORY: Patient has previous diagnosis of Major depressive disorder with psychotic features, trichotillomania, schizoaffective disorder - bipolar type, skin picking disorder. She has been admitted to [facility] about five times in the past 3 years. She was most recently discharged from [facility] on Prozac 60 mg daily for skin picking disorder, Zyprexa 20 mg QHS for schizoaffective disorder, and Marinol 2.5 mg BID for appetite stimulation. Psychiatric follow-up is with [facility]. Patient denies any history of suicide attempts in the past. PAST MEDICAL HISTORY: Past Medical History: Cancer, Eye Disorder, GERD/Reflux, Hyperlipidemia, Hypertension, Pneumonia Additional Past Medical History / Comment(s): R breast cancer with lumpectomy and radiation 2016, osteopenia, vertigo at times, dry eyes bilaterally,hypotensive episode 01/22/19. 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 Cervical dysplasia 1988. History of Any Multi-Drug Resistant Organisms: None Reported Past Surgical History: Breast Surgery, Tonsillectomy Additional Past Surgical History / Comment(s): 1989 R breast excisional biopsy, benign cyst removed from R breast, 2016 R breast lumpectomy, D&C, cervical conization 1988, colonoscopy 2001. Past Anesthesia/Blood Transfusion Reactions: No Reported Reaction Additional Past Anesthesia/Blood Transfusion Reaction / Comm: "Sensitivity to anesthesia" Past Psychological History: Anxiety, Depression Smoking Status: Never smoker Past Alcohol Use History: Occasional Past Drug Use History: None Reported ALLERGIES: as per EMR. CHEMICAL DEPENDENCY HISTORY: The patient denies any significant tobacco, alcohol, marijuana or illicit drug use. FAMILY PSYCHIATRIC/SUBSTANCE USE HISTORY: Mother with depression SOCIAL HISTORY: Patient was born and raised in [place], [place]. She graduated high school and attended 2 years of college. She has 1 adult son and 2 grandchildren. 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 She recently took in 2 roommates into her home. MENTAL STATUS EXAM: General Appearance: Patient appears to be stated age, mostly bald with multiple superficial skin lesions from picking at her skin. Behavior: Patient is calmly lying in bed without any agitated behavior. Speech: Patient's speech is fluent and non-pressured. Mood/Affect: Patient reports their mood is "Fine", affect is congruent Suicidality/Homicidality: Patient denies having any suicidal or homicidal ideation intent or plan. Perceptions: Patient denies any visual hallucinations and denies any auditory hallucinations. Though content/process: There is no evidence of any delusional thought content and thought process is linear and goal-directed. Memory and concentration: AOX3, grossly intact for the purposes of this session. Judgment and insight: Fair to poor IMPRESSIONS: Unspecified mood disorder Unspecified psychotic disorder Schizoaffective disorder, bipolar type by history Skin picking disorder Rule out Cluster B personality disorder PLAN: -At this time patient DOES NOT meet criteria for inpatient psychiatric adm ission. -Would recommend the following medication changes/additions: Patient prefers to keep her medications the same at this time and declines any medication changes. Recommend Zyprexa 5 mg Q6H PRN for agitation. Follow-up with [facility] for outpatient medication management. -Communicated plan to patient's nurse -Psychiatry will sign off at this time -Please contact with any questions. 09/24/21 12:47 09/24/21 17:08
[2021-09-24] MEDS: OLANZapine ODT 10 MG TAB PO SCH (21:17)
--- NOTE | 2021-09-24 21:31 | P.PN ---
Subjective Progress Note Date: 09/24/21 CHIEF COMPLAINT: Scalp abscess HISTORY OF PRESENT ILLNESS: The patient is a 70 year old female admitted with two-week history of abscess along the right occiput of the scalp. She has increased drainage from her scalp abscess. No fevers or chills. REVIEW OF ORGAN SYSTEMS: CONSTITUTIONAL: No fevers or chills. RESPIRATORY: Past pneumonia. Denies any troubles with breathing or dyspnea on exertion. CARDIOVASCULAR: Has hyperlipidemia. Has hypertensive heart disease. GASTROINTESTINAL: Has gastroesophageal reflux disease. PHYSICAL EXAM: VITALS: Reviewed CONSTITUTIONAL: Well developed and in no acute distress. EYES: Conjuctivae without sclera icterus. Extraocular movements grossly intact. HEAD, EARS, NOSE, THROAT: Moist buccal mucosa. Head is atraumatic, normocephalic. Hears conversational speech. No nasal drainage. Has 3 cm foul- smelling purulent drainage right posterior scalp. Actively draining wound. RESPIRATORY: Non-labored respirations and equal bilateral excursions. No gross wheezes. CARDIOVASCULAR: Palpable 2+ radial pulses. ABDOMEN: Scaphoid. Nontender. MUSCULOSKELETAL: No clubbing cyanosis. SKIN: Warm and well perfused with good skin turgor. NEUROLOGIC: Cranial nerves II through XII grossly intact. No focal or lateralizing signs. PSYCH: Alert and oriented to person, place and time. Displays appropriate insight. CLINCAL LABS: Reviewed. WBC normal 9.7 on admission. MICROBIOLOGY: Has methicillin-resistant staph worse infection ASSESSMENT: 1. Scalp abscess, failed outpatient treatment 2. History of breast cancer PLAN: 1. Surgical excisional debridement of scalp abscess descrbied. 2. Continue antibiotics Objective - Vital Signs Vital signs: Vital Signs Temp 97.4 F L 09/24/21 13:55 Pulse 60 09/24/21 13:55 Resp 17 09/24/21 13:55 BP 158/76 09/24/21 13:55 Pulse Ox 100 09/24/21 13:55 FiO2 Intake & Output 09/23/21 09/24/21 09/24/21 18:59 06:59 18:59 Output Total 1200 400 Balance -1200 -400 Output: Urine 600 400 Post Void Residual 600 Other: Voiding Method Bedpan # Voids 1 - Labs CBC & Chem 7: 09/22/21 15:23 09/24/21 19:37 Labs: Abnormal Lab Results - Last 24 Hours (Table) 09/24/21 Range/Units 06:35 Potassium 3.0 L (3.5-5.5) mmol/L BUN 4.8 L (9.0-27.0) mg/dL Creatinine 0.5 L (0.6-1.5) mg/dL BUN/Creatinine Ratio 9.60 L (12.00-20.00) Ratio Microbiology - Last 24 Hours (Table) 09/22/21 16:30 Gram Stain - Preliminary Head Wound Culture - Preliminary Presumptive MRSA 09/22/21 15:23 Blood Culture - Preliminary Blood No Growth after 24 hours 09/22/21 15:10 Blood Culture - Preliminary Blood No Growth after 24 hours
[2021-09-25] MEDS ORDERED: VANCOMYCIN TROUGH DUE 1 EACH MISC MISCELLANE ONE (04:00)
[2021-09-25 04:08] LABS: Basophils % (A) 1 %; Eosinophils # (A) 0.1 k/uL (0-0.7); Eosinophils % (A) 2 %; HCT 37.3 % (34.0-46.0); Lymphocytes # (A) 1.6 k/uL (1.0-4.8); Lymphocytes % (A) 26 %; MCH 29.1 pg (25.0-35.0); MCHC 32.7 g/dL (31.0-37.0); MCV 89.2 fL (80.0-100.0); Mean Platelet Volume 7.4; Monocytes # (A) 0.4 k/uL (0-1.0); Monocytes % (A) 6 %; Neutrophils # (A) 3.9 k/uL (1.3-7.7); Neutrophils % (A) 64 %; Platelet Count 264 k/uL (150-450); RBC 4.19 m/uL (3.80-5.40); RDW 12.6 % (11.5-15.5)
[2021-09-25] MEDS: VANCOMYCIN 1,000 MG in SODIUM CHLORIDE 0.9% 250 ML IVPB SCH (05:23)
[2021-09-25] MEDS: SODIUM CHLORIDE 0.9% 1,000 ML IV SCH ×3 (05:25→19:53)
[2021-09-25 06:36] LABS: HGB 12.2 gm/dL (11.4-16.0)
--- NOTE | 2021-09-25 07:21 | P.PN ---
Subjective Progress Note Date: 09/24/21 Principal diagnosis: Scalp abscess/wound Patient is a 70-year female with a nonhealing wound to the posterior scalp area and concerning for an abscess and secondary cellulitis. On today's evaluation that is 09/24/2021, the patient remains to be afebrile, patient is breathing comfortably on room air, patient denies any worsening pain to the right posterior scalp area minimal drainage no chest pain shortness of breath or cough no abdominal pain no diarrhea Objective - Vital Signs Vital signs: Vital Signs Temp 97.4 F L 09/24/21 13:55 Pulse 60 09/24/21 13:55 Resp 17 09/24/21 13:55 BP 158/76 09/24/21 13:55 Pulse Ox 100 09/24/21 13:55 FiO2 Intake & Output 09/23/21 09/24/21 09/24/21 18:59 06:59 18:59 Output Total 1200 400 Balance -1200 -400 Output: Urine 600 400 Post Void Residual 600 Other: Voiding Method Bedpan # Voids 1 - Exam GENERAL DESCRIPTION: Elderly female lying in bed, no distress. No tachypnea or accessory muscle of respiration use. HEENT: Scalp on the right side did have an open wound with surrounding swelling redness LUNGS: Unlabored breathing. Clear to auscultation anteriorly. No wheeze or crackle. HEART: S1, S2, regular rate and rhythm. No loud murmur ABDOMEN: Soft, no tenderness , guarding or rigidity, no organomegaly EXTREMITIES: No edema of feet. - Labs CBC & Chem 7: 09/25/21 03:38 09/24/21 19:37 Labs: Abnormal Lab Results - Last 24 Hours (Table) 09/24/21 Range/Units 06:35 Potassium 3.0 L (3.5-5.5) mmol/L BUN 4.8 L (9.0-27.0) mg/dL Creatinine 0.5 L (0.6-1.5) mg/dL BUN/Creatinine Ratio 9.60 L (12.00-20.00) Ratio Microbiology - Last 24 Hours (Table) 09/22/21 16:30 Gram Stain - Preliminary Head Wound Culture - Preliminary Presumptive MRSA 09/22/21 15:23 Blood Culture - Preliminary Blood No Growth after 24 hours 09/22/21 15:10 Blood Culture - Preliminary Blood No Growth after 24 hours Assessment and Plan (1) Scalp abscess Current Visit: Yes Status: Acute Code(s): L02.811 - CUTANEOUS ABSCESS OF HEAD [ANY PART, EXCEPT FACE] SNOMED Code(s): 59023013 Plan: 1patient with a right posterior scalp abscess and cellulitis with a nonhealing wound likely from gram-positive skin osei as the patient did have evidence of folliculitis and possible MRSA failing outpatient oral antibiotic therapy. Local culture had been finalized with MRSA blood cultures negative 2patient has been evaluated by general surgery and possible debridement drainage of the abscess and deep culture scheduled for tomorrow. 3patient to continue with vancomycin pharmacy to dose target trough of 15 while watching kidney function and vancomycin trough closely. Time with Patient: Less than 30
[2021-09-25] MEDS: FLUoxetine HCL 20 MG CAP PO SCH (07:36)
[2021-09-25 09:46] LABS: African American GFR (CKD) 114.5 (60.0-200.0); Anion Gap 14.9 mmol/L (10.00-18.00); BUN/Creat Ratio 4.8 Ratio (12.00-20.00); Blood Urea Nitrogen 2.4 mg/dL (9.0-27.0); Calcium 8.9 mg/dL (8.7-10.3); Carbon Dioxide 23.1 mmol/L (20.0-27.5); Non-African American GFR(CKD) 98.8 (60.0-200.0); Potassium 3.4 mmol/L (3.5-5.5)
[2021-09-25] MEDS: POTASSIUM CHLORIDE ER 20 MEQ TAB.ER PO SCH ×2 (10:04→10:06)
[2021-09-25 12:08] VITALS: BMI 19.2
[2021-09-25] MEDS ORDERED: POTASSIUM CHLORIDE ER 20 MEQ TAB.ER PO STA (14:04)
--- NOTE | 2021-09-25 14:13 | P.PN ---
Subjective Progress Note Date: 09/25/21 Patient is a 70-year-old female with known history of right breast cancer with lumpectomy and radiation in 2017, hypertension, hyperlipidemia, anxiety/depression presents to ER with complaints of nonhealing ulcer on the right side of the skull base is has not been healing well with outpatient antibiotic therapy for the past 1 week. Patient was seen by ER and was started on antibiotic in the form of Bactrim without much improvement. Patient was having purulent drainage and pain. Denied any complaints of fever or chills. No nausea vomiting or abdominal pain. No headache or. No dizziness or light headedness. Patient was given a dose of vancomycin and ceftriaxone in the ER. Laboratory data showed WBC 9.7 hemoglobin 13.3 and platelets 432 lactic acid 1.5 Patient is a very poor historian 09/25/2021 Patient is seen and evaluated and follow-up maintained on IV antibiotics in the form of vancomycin with infectious disease following closely. Surgery also following and plan is for debridement of the nonhealing wound located on the head and will await surgical report. Wound culture showing MRSA and will discuss with infectious disease after surgery about discharge planning and antibiotic recommendations and if requiring an IV antibiotics in the outpatient setting. Patient is afebrile and denies chest pain or shortness of breath. Patient is lethargic and continues with some weakness and will have physical therapy evaluate the patient. Encouraged oral intake and also will add ensure supplements. Potassium at 3.4 today and recommend replace per protocol and will follow-up with repeat labs. Review of systems: Constitutional: No reports of fatigue, fever, or chills Cardiovascular: No reports of chest pain or palpitations Respiratory: No reports of shortness of breath or cough GI: No reports of nausea, vomiting, or diarrhea, reports poor intake : No reports of dysuria or retention Neurovascular: reports of generalized weakness All medications have been reviewed Active Medications Acetaminophen (Acetaminophen Tab 325 Mg Tab) 650 mg PO Q6HR PRN PRN Reason: Mild Pain or Fever > 100.5 Albuterol Sulfate (Albuterol Nebulized 2.5 Mg/3 Ml) 2.5 mg INHALATION RT-TID PRN PRN Reason: difficulty breathing Fluoxetine HCl (Fluoxetine Hcl 20 Mg Cap) 60 mg PO DAILY MEI Last Admin: 09/25/21 07:36 Dose: 60 mg Hydromorphone HCl (Hydromorphone 0.5 Mg/0.5 Ml Syringe) 0.5 mg IVP Q5M PRN PRN Reason: Phase 1 or 2 - Pain Control Stop: 09/26/21 23:00 Sodium Chloride (Saline 0.9%) 1,000 mls @ 100 mls/hr IV .Q10H [facility] Last Admin: 09/25/21 07:42 Dose: Not Given Vancomycin HCl 1,250 mg/ (Sodium Chloride) 250 mls @ 125 mls/hr IVPB Q12H [facility] Lactated Ringer's (Lactated Ringers) 1,000 mls @ 20 mls/hr IV .Q24H [facility] Miscellaneous Information (Potassium Replacement Protocol 1 Each Misc) 1 each MISCELLANE DAILY PRN; Protocol PRN Reason: Per Protocol Naloxone HCl (Naloxone 0.4 Mg/Ml 1 Ml Vial) 0.2 mg IV Q2M PRN PRN Reason: Opioid Reversal Olanzapine (Olanzapine Odt 10 Mg Tab) 20 mg PO HS [facility] Last Admin: 09/24/21 21:17 Dose: 20 mg Olanzapine (Olanzapine 5 Mg Tab) 5 mg PO Q6H PRN PRN Reason: Agitation or Acute Anxiety Physical exam: Patient is lying in the bed comfortably, no acute distress, awake alert and oriented.. Lethargic HEENT: Normocephalic. Neck is supple. Pupils reactive. Nostrils clear. Oral cavity is moist. Neck reveals no JVD, carotid bruits, or thyromegaly. CHEST EXAMINATION: Trachea is central. Symmetrical expansion. Lung carrera clear to auscultation and percussion. CARDIAC: Normal S1, S2 with no gallops. No murmurs ABDOMEN: Soft. Bowel sounds present. Nontender. No organomegaly. No abdominal bruits. Extremities: reveal no edema. No clubbing or cyanosis Neurologically awake, alert, oriented x2-3 with well-coordinated movements. No focal deficits noted Skin: No rash or skin lesions. Large wound on the right side of the occipital scalp with surrounding redness and purulent base. Mild tenderness and warmth. Psychiatric: Cooperative. Non-suicidal Musculoskeletal: No joint swelling or deformity. Normal range of motion. Assessment: Nonhealing ulcer on the right side of the neck at the occipital region with failed outpatient antibiotic therapy.. Hypokalemia Hypertension Hyperlipidemia GERD History of right breast cancer with lumpectomy and radiation in 2017 Anxiety/depression DVT prophylaxis Full code Plan: Patient is continued on antibiotics in the form of vancomycin infectious disease following. Gen. surgery following as well and patient is scheduled for debridement of the non-healing wound and will await surgical report Currently nothing by mouth and will resume diet after surgical intervention. Patient is continued on normal saline 100 mL per hour and will discontinue after surgery Potassium 3.4 today and will replace per protocol and recommend follow-up labs Wound culture showing MRSA with multi-resistance and will discuss with infectious disease about treatment plan moving forward Encouraged increased activity as tolerated Due to multiple convex medical issues, prognosis is guarded. The impression and plan of care has been dictated by Corinne Borjas, Nurse Practitioner as directed. Dr. Iza MD I have performed a history and examination and MDM of this patient, discussed the same with the dictator, and agree with the dictator's assessment and plan as written ,documented as a scribe. Based on total visit time, I have performed more than 50% of the visit. Objective - Vital Signs Vital signs: Vital Signs Temp 97.6 F 09/25/21 08:00 Pulse 78 09/25/21 08:00 Resp 18 09/25/21 08:00 BP 140/80 09/25/21 08:00 Pulse Ox 99 09/25/21 08:00 FiO2 Intake & Output 09/24/21 09/25/21 09/25/21 18:59 06:59 18:59 Intake Total 1500 Output Total 600 Balance -600 1500 Intake: Intake, IV Titration 1200 Amount Sodium Chloride 0.9% 1, 1200 000 ml @ 100 mls/hr IV . Q10H [facility] Rx#:[id number] Oral 300 Output: Urine 600 Other: Voiding Method Bedpan # Voids 1 2 - Labs CBC & Chem 7: 09/25/21 03:38 09/25/21 03:38 Labs: Abnormal Lab Results - Last 24 Hours (Table) 09/24/21 09/24/21 Range/Units 06:35 19:37 Potassium 3.0 L 2.9 L (3.5-5.5) mmol/L BUN 4.8 L (9.0-27.0) mg/dL Creatinine 0.5 L (0.6-1.5) mg/dL BUN/Creatinine Ratio 9.60 L (12.00-20.00) Ratio Microbiology - Last 24 Hours (Table) 09/22/21 16:30 Gram Stain - Final Head Wound Culture - Final Methicillin resist S. aureus 09/22/21 15:23 Blood Culture - Preliminary Blood No Growth after 48 hours 09/22/21 15:10 Blood Culture - Preliminary Blood No Growth after 48 hours
[2021-09-25] MEDS: VANCOMYCIN 1,250 MG in SODIUM CHLORIDE 0.9% 250 ML IVPB SCH (16:27)
[2021-09-25] MEDS ORDERED: IV FLUID CONTINUATION 1,000 ML IV ONE (17:08)
[2021-09-25] MEDS ORDERED: ePHEDrine 50 MG/ML 1 ML VIAL ONE (17:23)
[2021-09-25] MEDS ORDERED: PROPOFOL 10 MG/ML 20 ML VIAL IV ONE (17:23)
[2021-09-25] MEDS ORDERED: MIDAZOLAM 2 MG/2 ML VIAL ONE (17:23)
[2021-09-25] MEDS ORDERED: SUCCINYLCHOLINE CHLORIDE 200 MG/10 ML VIAL IV ONE (17:23)
[2021-09-25] MEDS ORDERED: PHENYLEPHRINE-0.9% NACL SYG 1,000 MCG/10 ML SYRINGE ONE (17:23)
[2021-09-25] MEDS ORDERED: fentaNYL (PF) 50 MCG/ML 2 ML AMP ONE (17:23)
[2021-09-25] MEDS ORDERED: LIDOCAINE 2% INJ 20 MG/ML (2 ML VIAL) ONE (17:23)
[2021-09-25] MEDS ORDERED: BUPIVACAIN-EPI 0.25%-1:200,000 30 ML VIAL SQ ONE (18:07)
--- NOTE | 2021-09-25 18:39 | P.OP ---
Date of Procedure: 09/25/21 Description of Procedure: SURGEON: SUSHIL DUPONT MD PREOPERATIVE DIAGNOSES: 1. Right occipital nonhealing ulcer, 3 cm 2. MRSA infection, scalpel 3. History of breast cancer 4. Generalized anxiety disorder 5. Depressive disorder 6. Hypertensive heart disease 7. Hyperlipidemia 8. Asthma POSTOPERATIVE DIAGNOSES: 1. Ulcerative necrotic right posterior occipital scalp wound, 4 x 3 cm 2. MRSA infection, scalpel 3. History of breast cancer 4. Generalized anxiety disorder 5. Depressive disorder 6. Hypertensive heart disease 7. Hyperlipidemia 8. Asthma PROCEDURES PERFORMED: 1. Excisional debridement of nonhealing occipital posterior scalp wound 4 x 3 cm, subfascia 2. Intermediate closure 4 cm scalpel with [place] drain, quarter inch 3. Waterjet of Pulsavac 3 L normal saline for mechanical debridement Anesthesia: GETA, local Estimated Blood Loss (ml): 50 Pathology: other (Aerobic anechoic culture, excisional debridement of scalp wound) Condition: stable COMPLICATIONS: None. Operative Findings: 1. Ulcerated lesion extending into the subcutaneous tissue and fascia of the right posterior scalp and to the neck. 2. Moderate necrotic tissue debrided using sharp excisional treatment using a blade. 3. Hemostasis checked with edges of ulcer resected for closure with Troy drain quarter-inch. INDICATIONS: The patient is a 70-year-old female who presents with failed outpatient treatment of nonhealing scalp ulcer with abscess and drainage. Benefits and risks of surgical intervention were described including bleeding, infection. Informed consent was obtained. DESCRIPTION OR PROCEDURE: In the preoperative area, the area of concern was marked with indelible marker. Patient was brought into the operating room. After general induction, he was positioned in prone position. The scalp was prepped and draped in a standard sterile fashion. Timeout protocol was confirmed with the surgical team regarding the patient's name, procedure to be performed including preoperative medications. DVT prophylaxis was confirmed. A field block was placed of the right occipital scalp. A transverse elliptical incision using #15 blade was made along the marking into the deep subcutaneous tissue to involve edges of the ulcer. Electro-Bovie cautery was used to incise to the fascia with dissection. The wound was copiously irrigated using 3 L normal saline for mechanical debridement. A quarter-inch Troy drain was cut and placed along the depth of the wound to allow drainage as a wound extended from the scalp to the neck. The drain was tacked to the skin using 2-0 nylon. The incision was closed using 4-0 nylon interrupted fashion. The skin was cleansed with dilute hydrogen peroxide. A 4 x 4 and tape was placed. At the end of the procedure, needle, sponge, and instrument count was verified correct by water restoration technician. The patient tolerated the procedure well.
[2021-09-25] MEDS ORDERED: ONDANSETRON 4 MG/2 ML VIAL IVP PRN (18:40)
[2021-09-25] MEDS: OLANZapine ODT 10 MG TAB PO SCH (19:51)
[2021-09-26] MEDS: LACTATED RINGERS 1,000 ML IV SCH ×2 (04:56→13:26)
[2021-09-26] MEDS: VANCOMYCIN 1,250 MG in SODIUM CHLORIDE 0.9% 250 ML IVPB SCH ×2 (05:33→16:46)
[2021-09-26 06:43] LABS: African American GFR (CKD) >90 (>60 ml/min/1.73 sqM); Anion Gap 14 mmol/L; Blood Urea Nitrogen <2 mg/dL (7-17); Calcium 8.5 mg/dL (8.4-10.2); Carbon Dioxide 23 mmol/L (22-30); Chloride 104 mmol/L (98-107); Glucose 86 mg/dL (74-99); Non-African American GFR(CKD) >90 (>60 ml/min/1.73 sqM); Potassium 3.3 mmol/L (3.5-5.1); Sodium 141 mmol/L (137-145)
[2021-09-26] MEDS ORDERED: HYDROmorphone 0.5 MG/0.5 ML SYRINGE IVP PRN (07:00)
--- NOTE | 2021-09-26 07:56 | P.PN ---
Subjective Progress Note Date: 09/25/21 Principal diagnosis: Scalp abscess/wound Patient is a 70-year female with a nonhealing wound to the posterior scalp area and concerning for an abscess and secondary cellulitis. On today's evaluation that is 09/25/2021, the patient denies any fever or any chills, patient is breathing comfortably on room air, patient pain to the right sided scalp area is currently controlled, the patient denies chest pain shortness of breath or cough no abdominal pain no diarrhea Objective - Vital Signs Vital signs: Vital Signs Temp 97.6 F 09/25/21 08:00 Pulse 78 09/25/21 08:00 Resp 18 09/25/21 08:00 BP 140/80 09/25/21 08:00 Pulse Ox 99 09/25/21 08:00 FiO2 Intake & Output 09/24/21 09/25/21 09/25/21 18:59 06:59 18:59 Intake Total 1500 Output Total 600 Balance -600 1500 Weight 58.967 kg Intake: Intake, IV Titration 1200 Amount Sodium Chloride 0.9% 1, 1200 000 ml @ 100 mls/hr IV . Q10H [facility] Rx#:[id number] Oral 300 Output: Urine 600 Other: Voiding Method Bedpan # Voids 1 2 - Exam GENERAL DESCRIPTION: Elderly female lying in bed, no distress. No tachypnea or accessory muscle of respiration use. HEENT: Scalp on the right side did have an open wound with surrounding swelling redness LUNGS: Unlabored breathing. Clear to auscultation anteriorly. No wheeze or crackle. HEART: S1, S2, regular rate and rhythm. No loud murmur ABDOMEN: Soft, no tenderness , guarding or rigidity, no organomegaly EXTREMITIES: No edema of feet. - Labs CBC & Chem 7: 09/25/21 03:38 09/26/21 05:36 Labs: Abnormal Lab Results - Last 24 Hours (Table) 09/24/21 09/24/21 09/25/21 Range/Units 06:35 19:37 03:38 Potassium 3.0 L 2.9 L 3.4 L (3.5-5.5) mmol/L BUN 4.8 L 2.4 L (9.0-27.0) mg/dL Creatinine 0.5 L 0.5 L (0.6-1.5) mg/dL BUN/Creatinine Ratio 9.60 L 4.80 L (12.00-20.00) Ratio Microbiology - Last 24 Hours (Table) 09/22/21 16:30 Gram Stain - Final Head Wound Culture - Final Methicillin resist S. aureus 09/22/21 15:23 Blood Culture - Preliminary Blood No Growth after 48 hours 09/22/21 15:10 Blood Culture - Preliminary Blood No Growth after 48 hours Assessment and Plan (1) Scalp abscess Current Visit: Yes Status: Acute Code(s): L02.811 - CUTANEOUS ABSCESS OF HEAD [ANY PART, EXCEPT FACE] SNOMED Code(s): 33895493 Plan: 1patient with a right posterior scalp abscess and cellulitis with a nonhealing wound likely from gram-positive skin osei as the patient did have evidence of folliculitis and possible MRSA failing outpatient oral antibiotic therapy. Local culture had been finalized with MRSA blood cultures negative 2patient has been evaluated by general surgery and possible debridement drainage of the abscess and deep culture scheduled for this afternoon. 3patient to continue with vancomycin pharmacy to dose and monitor clinical course closely Time with Patient: Less than 30
[2021-09-26] MEDS: FLUoxetine HCL 20 MG CAP PO SCH (09:09)
[2021-09-26 09:12] LABS: Basophils # (A) 0.05 X 10*3/uL (0.00-0.10); Basophils % (A) 0.8 %; Eosinophils # (A) 0.09 X 10*3/uL (0.04-0.35); Eosinophils % (A) 1.4 %; HCT 35.3 % (37.2-46.3); HGB 11.6 g/dL (12.0-15.0); Immature Grans, Automated 0.2 %; Lymphocytes # (A) 1.35 X 10*3/uL (0.90-5.00); Lymphocytes % (A) 21.3 %; MCH 28.9 pg (27.0-32.0); MCHC 32.9 g/dL (32.0-37.0); Mean Platelet Volume 9.9 fL (9.5-12.2); Monocytes # (A) 0.52 X 10*3/uL (0.20-1.00); Monocytes % (A) 8.2 %; NRBC Per 100 WBC 0 /100 WBCS (0.0-0.0); Neutrophils # (A) 4.33 X 10*3/uL (1.80-7.70); Neutrophils % (A) 68.1 %; Platelet Count 252 X 10*3/uL (140-440); RBC 4.01 X 10*6/uL (4.10-5.20); RDW 12.4 % (11.5-14.5); WBC 6.35 X 10*3/uL (4.50-10.00)
[2021-09-26] MEDS ORDERED: Magnesium Replacement Protocol 1 EACH MISC MISCELLANE PRN (09:35)
[2021-09-26] MEDS ORDERED: Potassium Replacement Protocol 1 EACH MISC MISCELLANE PRN (09:35)
[2021-09-26] MEDS: SODIUM CHLORIDE 0.9% 1,000 ML IV SCH (09:49)
[2021-09-26] MEDS ORDERED: POTASSIUM CHLORIDE ER 20 MEQ TAB.ER PO SCH (10:00)
[2021-09-26] MEDS: POTASSIUM BICARBONATE/CIT AC 20 MEQ TABLET.EFF PO SCH ×3 (10:39→13:25)
[2021-09-26] MEDS: MAGNESIUM SULFATE-D5W PMX 1 GM in DEXTROSE/WATER 1 100ML.BAG IVPB SCH ×3 (10:45→13:25)
--- NOTE | 2021-09-26 11:23 | P.PN ---
Subjective Progress Note Date: 09/26/21 CHIEF COMPLAINT: Nonhealing scalp wound HISTORY OF PRESENT ILLNESS: Patient is postop day #1 status post excisional debridement of nonhealing occipital posterior scalp wound with [place] drain placement. Pain is controlled. Denies any nausea or vomiting. Afebrile. WBC 6.35 hemoglobin 11.6 sodium 141 potassium 3.3 creatinine 0.51. Wound culture result MRSA PHYSICAL EXAM: VITAL SIGNS: Reviewed GENERAL: Well-developed in no acute distress. HEENT: No sclera icterus. Extraocular movements grossly intact. Moist buccal mucosa. Head is atraumatic, normocephalic. Hears conversational speech. No nasal drainage. NECK: Supple without lymphadenopathy. CHEST: Non-labored respirations and equal bilateral excursions. CARDIOVASCULAR: Palpable 2+ radial pulses. ABDOMEN: Soft. Nondistended. Nontender. MUSCULOSKELETAL: No clubbing or cyanosis. NEUROLOGIC: No focal or lateralizing signs. Cranial nerves II through XII grossly intact. PSYCH: Appropriate affect. Alert and oriented to person, place and time. SKIN: Well perfused. Good skin turgor. ASSESSMENT: 1. Ulcerative necrotic right posterior occipital scalp wound status post debridement with Vanessa drain placed 2. History of breast cancer 3. Hypokalemia PLAN: -Patient can be discharged from surgical standpoint when medically cleared -Continue antibiotics per ID service -[place] drain will be discontinued in the office in 2 weeks -Medicine service replacing potassium Physician Environmental Aid note has been reviewed by physician. Signing provider agrees with the documented findings, assessment, and plan of care. Objective - Vital Signs Vital signs: Vital Signs Temp 97.7 F 09/26/21 08:00 Pulse 63 09/26/21 08:00 Resp 16 09/26/21 08:00 BP 150/82 09/26/21 08:00 Pulse Ox 99 09/26/21 08:00 FiO2 Intake & Output 09/25/21 09/26/21 09/26/21 18:59 06:59 18:59 Intake Total 800 50 Output Total 50 Balance 750 50 Weight 58.967 kg Intake: IV 800 50 Output: Estimated Blood Loss 50 Other: Voiding Method Bedpan Toilet Bedpan # Voids 1 1 - Labs CBC & Chem 7: 09/26/21 05:36 09/26/21 05:36 Labs: Abnormal Lab Results - Last 24 Hours (Table) 09/26/21 09/26/21 09/26/21 Range/Units 05:36 05:36 05:36 RBC 4.01 L (4.10-5.20) X 10*6/uL Hgb 11.6 L (12.0-15.0) g/dL Hct 35.3 L (37.2-46.3) % Potassium 3.3 L (3.5-5.1) mmol/L BUN <2 L (7-17) mg/dL Creatinine 0.51 L (0.52-1.04) mg/dL Magnesium 1.4 L (1.6-2.3) mg/dL Microbiology - Last 24 Hours (Table) 09/22/21 15:23 Blood Culture - Preliminary Blood No Growth after 72 hours 09/22/21 15:10 Blood Culture - Preliminary Blood No Growth after 72 hours
--- NOTE | 2021-09-26 15:49 | P.PN ---
Subjective Progress Note Date: 09/26/21 Patient is a 70-year-old female with known history of right breast cancer with lumpectomy and radiation in 2017, hypertension, hyperlipidemia, anxiety/depression presents to ER with complaints of nonhealing ulcer on the right side of the skull base is has not been healing well with outpatient antibiotic therapy for the past 1 week. Patient was seen by ER and was started on antibiotic in the form of Bactrim without much improvement. Patient was having purulent drainage and pain. Denied any complaints of fever or chills. No nausea vomiting or abdominal pain. No headache or. No dizziness or light headedness. Patient was given a dose of vancomycin and ceftriaxone in the ER. Laboratory data showed WBC 9.7 hemoglobin 13.3 and platelets 432 lactic acid 1.5 Patient is a very poor historian 09/25/2021 Patient is seen and evaluated and follow-up maintained on IV antibiotics in the form of vancomycin with infectious disease following closely. Surgery also following and plan is for debridement of the nonhealing wound located on the head and will await surgical report. Wound culture showing MRSA and will discuss with infectious disease after surgery about discharge planning and antibiotic recommendations and if requiring an IV antibiotics in the outpatient setting. Patient is afebrile and denies chest pain or shortness of breath. Patient is lethargic and continues with some weakness and will have physical therapy evaluate the patient. Encouraged oral intake and also will add ensure supplements. Potassium at 3.4 today and recommend replace per protocol and will follow-up with repeat labs. 09/26/2021 Patient is seen in follow-up this morning status post debridement with general surgery of the nonhealing wound and continues with the [place] drain. Patient underwent excisional debridement of the posterior scalp wound and Vanessa was placed. Patient will follow-up with surgery outpatient to have the drain removed. Patient is also continued on IV antibiotics with infectious disease following closely and cultures have shown MRSA and will need to discuss further about discharge planning and possible IV antibiotics versus oral for discharge. Patient potassium found to be 3.4 again recommending replacement and patient reports to having difficulty with potassium. Patient also reports she is unable to eat and does not want to eat at this time. Discussed with her with nursing staff at the bedside the importance of eating and nutrition to help maintain strength and healing and patient stated "I don't need to eat right now and I don't have to". Dietitian was consulted. Encouraged oral intake. Offered cools solution is having mouth pain and patient refused. Patient is extremely anxious and is noted to have history of anxiety. Recommend titrating down IV fluids. It doesn't appear that the cultures were obtained during debridement. Patient is afebrile denies chest pain or shortness of breath. Case management also following and will follow-up in the a.m. in regards to antibiotic recommendations. Patient denies nausea or vomiting. Magnesium was also found to be 1.4 and will replace per protocol. Recommend repeat labs in a.m. Review of systems: Constitutional: No reports of fatigue, fever, or chills Cardiovascular: No reports of chest pain or palpitations Respiratory: No reports of shortness of breath or cough GI: No reports of nausea, vomiting, or diarrhea, reports poor intake and no desire to eat : No reports of dysuria or retention Neurovascular: reports of generalized weakness All medications have been reviewed Active Medications Acetaminophen (Acetaminophen Tab 325 Mg Tab) 650 mg PO Q6HR PRN PRN Reason: Mild Pain or Fever > 100.5 Albuterol Sulfate (Albuterol Nebulized 2.5 Mg/3 Ml) 2.5 mg INHALATION RT-TID PRN PRN Reason: difficulty breathing Fluoxetine HCl (Fluoxetine Hcl 20 Mg Cap) 60 mg PO DAILY [facility] Last Admin: 09/26/21 09:09 Dose: Not Given Hydromorphone HCl (Hydromorphone 0.5 Mg/0.5 Ml Syringe) 0.5 mg IVP Q5M PRN PRN Reason: Phase 1 or 2 - Pain Control Stop: 09/26/21 23:00 Sodium Chloride (Saline 0.9%) 1,000 mls @ 20 mls/hr IV .Q24H [facility] Last Admin: 09/26/21 09:49 Dose: Not Given Vancomycin HCl 1,250 mg/ (Sodium Chloride) 250 mls @ 125 mls/hr IVPB Q12H [facility] Last Admin: 09/26/21 05:33 Dose: 125 mls/hr Lactated Ringer's (Lactated Ringers) 1,000 mls @ 20 mls/hr IV .Q24H [facility] Last Admin: 09/26/21 13:26 Dose: Not Given Miscellaneous Information (Potassium Replacement Protocol 1 Each Misc) 1 each MISCELLANE DAILY PRN; Protocol PRN Reason: Per Protocol Miscellaneous Information (Magnesium Replacement Protocol 1 Each Misc) 1 each MISCELLANE DAILY PRN; Protocol PRN Reason: Per Protocol Miscellaneous Information (Potassium Replacement Protocol 1 Each Misc) 1 each MISCELLANE DAILY PRN; Protocol PRN Reason: Per Protocol Naloxone HCl (Naloxone 0.4 Mg/Ml 1 Ml Vial) 0.2 mg IV Q2M PRN PRN Reason: Opioid Reversal Olanzapine (Olanzapine Odt 10 Mg Tab) 20 mg PO HS [facility] Last Admin: 09/25/21 19:51 Dose: 20 mg Olanzapine (Olanzapine 5 Mg Tab) 5 mg PO Q6H PRN PRN Reason: Agitation or Acute Anxiety Ondansetron HCl (Ondansetron 4 Mg/2 Ml Vial) 4 mg IVP Q8HR PRN PRN Reason: Nausea And Vomiting Physical exam: Patient is lying in the bed comfortably, no acute distress, awake alert and oriented.. Anxious HEENT: Normocephalic. Neck is supple. Pupils reactive. Nostrils clear. Oral cavity is moist. Neck reveals no JVD, carotid bruits, or thyromegaly. CHEST EXAMINATION: Trachea is central. Symmetrical expansion. Lung carrera clear to auscultation and percussion. CARDIAC: Normal S1, S2 with no gallops. No murmurs ABDOMEN: Soft. Bowel sounds present. Nontender. No organomegaly. No abdominal bruits. Extremities: reveal no edema. No clubbing or cyanosis Neurologically awake, alert, oriented x2-3 with well-coordinated movements. No focal deficits noted Skin: No rash or skin lesions. Large wound on the right side of the occipital scalp with surrounding redness and purulent base. Mild tenderness and warmth. Psychiatric: Cooperative. Non-suicidal, anxious Musculoskeletal: No joint swelling or deformity. Normal range of motion. Assessment: Nonhealing ulcer on the right side of the neck at the occipital region with failed outpatient antibiotic therapy status post excisional debridement with general surgery and Vanessa drain placement.. Hypokalemia Hypomagnesemia Hypertension Hyperlipidemia GERD Moderate protein calorie malnutrition with a BMI of 19.2 History of right breast cancer with lumpectomy and radiation in 2017 Anxiety/depression DVT prophylaxis Full code Plan: Patient is continued on antibiotics in the form of vancomycin infectious disease following. Gen. surgery following as well and patient is status post excisional debridement of the non-healing wound with [place] placement and cleared by surgery for discharge with outpatient follow-up in 1-2 weeks Potassium 3.4 today and will replace per protocol and recommend follow-up labs A medium found to be low at 1.4 and will replace as well Wound culture showing MRSA with multi-resistance and will discuss with infectious disease about treatment plan moving forward, no deep tissue cultures were obtained on the debridement yesterday and unsure if patient will be requiring IV antibiotics or oral on discharge Encouraged increased activity as tolerated Due to multiple complex medical issues, prognosis is guarded. Recommend dietary consult as patient is refusing to eat and reporting she does not need to eat and has no appetite. Possible discharge in 24-48 hours. The impression and plan of care has been dictated by Corinne Borjas Nurse Pract itioner as directed. Dr. Iza MD I have performed a history and examination and MDM of this patient, discussed the same with the dictator, and agree with the dictator's assessment and plan as written ,documented as a scribe. Based on total visit time, I have performed more than 50% of the visit. Objective - Vital Signs Vital signs: Vital Signs Temp 97.7 F 09/26/21 08:00 Pulse 63 09/26/21 08:00 Resp 16 09/26/21 08:00 BP 150/82 09/26/21 08:00 Pulse Ox 99 09/26/21 08:00 FiO2 Intake & Output 09/25/21 09/26/21 09/26/21 18:59 06:59 18:59 Intake Total 800 50 Output Total 50 Balance 750 50 Weight 58.967 kg Intake: IV 800 50 Output: Estimated Blood Loss 50 Other: Voiding Method Bedpan Toilet Bedpan # Voids 1 1 - Labs CBC & Chem 7: 09/26/21 05:36 09/26/21 05:36 Labs: Abnormal Lab Results - Last 24 Hours (Table) 09/25/21 09/26/21 09/26/21 Range/Units 03:38 05:36 05:36 RBC 4.01 L (4.10-5.20) X 10*6/uL Hgb 11.6 L (12.0-15.0) g/dL Hct 35.3 L (37.2-46.3) % Potassium 3.4 L 3.3 L (3.5-5.5) mmol/L BUN 2.4 L <2 L (9.0-27.0) mg/dL Creatinine 0.5 L 0.51 L (0.6-1.5) mg/dL BUN/Creatinine Ratio 4.80 L (12.00-20.00) Ratio Magnesium (1.6-2.3) mg/dL 09/26/21 Range/Units 05:36 RBC (4.10-5.20) X 10*6/uL Hgb (12.0-15.0) g/dL Hct (37.2-46.3) % Potassium (3.5-5.5) mmol/L BUN (9.0-27.0) mg/dL Creatinine (0.6-1.5) mg/dL BUN/Creatinine Ratio (12.00-20.00) Ratio Magnesium 1.4 L (1.6-2.3) mg/dL Microbiology - Last 24 Hours (Table) 09/22/21 15:23 Blood Culture - Preliminary Blood No Growth after 72 hours 09/22/21 15:10 Blood Culture - Preliminary Blood No Growth after 72 hours
[2021-09-26] MEDS: OLANZapine ODT 10 MG TAB PO SCH (20:12)
[2021-09-27] MEDS: VANCOMYCIN 1,250 MG in SODIUM CHLORIDE 0.9% 250 ML IVPB SCH (05:55)
[2021-09-27] MEDS: SODIUM CHLORIDE 0.9% 1,000 ML IV SCH (06:24)
[2021-09-27] MEDS: FLUoxetine HCL 20 MG CAP PO SCH (08:04)
[2021-09-27] MEDS: LACTATED RINGERS 1,000 ML IV SCH (08:05)
[2021-09-27 08:11] VITALS: BP 158/81; PULSE 78; RESP 18; TEMP 98.2
--- NOTE | 2021-09-27 11:26 | P.PN ---
Subjective Progress Note Date: 09/26/21 Principal diagnosis: Scalp abscess/wound Patient is a 70-year female with a nonhealing wound to the posterior scalp area and concerning for an abscess and secondary cellulitis. On today's evaluation that is 09/26/2021, , The patient continues to be afebrile, the patient is breathing comfortably on room air, the patient scalp wound area pain is currently controlled, the patient denies having any chest pain or shortness of breath or cough no abdominal pain or diarrhea Objective - Vital Signs Vital signs: Vital Signs Temp 97.7 F 09/26/21 08:00 Pulse 63 09/26/21 08:00 Resp 16 09/26/21 08:00 BP 150/82 09/26/21 08:00 Pulse Ox 99 09/26/21 08:00 FiO2 Intake & Output 09/25/21 09/26/21 09/26/21 18:59 06:59 18:59 Intake Total 800 50 Output Total 50 Balance 750 50 Weight 58.967 kg Intake: IV 800 50 Output: Estimated Blood Loss 50 Other: Voiding Method Bedpan Toilet Bedpan # Voids 1 1 - Exam GENERAL DESCRIPTION: Elderly female lying in bed, no distress. No tachypnea or accessory muscle of respiration use. HEENT: Scalp on the right side did have an open wound with surrounding swelling redness LUNGS: Unlabored breathing. Clear to auscultation anteriorly. No wheeze or crackle. HEART: S1, S2, regular rate and rhythm. No loud murmur ABDOMEN: Soft, no tenderness , guarding or rigidity, no organomegaly EXTREMITIES: No edema of feet. - Labs CBC & Chem 7: 09/26/21 05:36 09/26/21 05:36 Labs: Abnormal Lab Results - Last 24 Hours (Table) 09/26/21 09/26/21 09/26/21 Range/Units 05:36 05:36 05:36 RBC 4.01 L (4.10-5.20) X 10*6/uL Hgb 11.6 L (12.0-15.0) g/dL Hct 35.3 L (37.2-46.3) % Potassium 3.3 L (3.5-5.1) mmol/L BUN <2 L (7-17) mg/dL Creatinine 0.51 L (0.52-1.04) mg/dL Magnesium 1.4 L (1.6-2.3) mg/dL Microbiology - Last 24 Hours (Table) 09/22/21 15:23 Blood Culture - Preliminary Blood No Growth after 72 hours 09/22/21 15:10 Blood Culture - Preliminary Blood No Growth after 72 hours Assessment and Plan (1) Scalp abscess Current Visit: Yes Status: Acute Code(s): L02.811 - CUTANEOUS ABSCESS OF HEAD [ANY PART, EXCEPT FACE] SNOMED Code(s): 95610866 Plan: 1patient with a right posterior scalp abscess and cellulitis with a nonhealing wound likely from gram-positive skin osei as the patient did have evidence of folliculitis and possible MRSA failing outpatient oral antibiotic therapy. Local culture had been finalized with MRSA blood cultures negative 2patient has been evaluated by general surgery and possible debridement drainage of the abscess Completed on 09/25/2021. . 3Patient seem to have shown some clinical provement and will continue the vancomycin may benefit from a PICC line if the patient is going to the skilled nursing for local care and IV antibiotics Time with Patient: Less than 30
[2021-09-27 11:45] LABS: African American GFR (CKD) >90 (>60 ml/min/1.73 sqM); Anion Gap 11 mmol/L; Blood Urea Nitrogen 2 mg/dL (7-17); Calcium 9.1 mg/dL (8.4-10.2); Carbon Dioxide 26 mmol/L (22-30); Chloride 102 mmol/L (98-107); Glucose 90 mg/dL (74-99); Non-African American GFR(CKD) 79 (>60 ml/min/1.73 sqM); Potassium 3.7 mmol/L (3.5-5.1); Sodium 139 mmol/L (137-145)
--- NOTE | 2021-09-27 12:50 | P.PN ---
Subjective Progress Note Date: 09/27/21 CHIEF COMPLAINT: Nonhealing scalp wound HISTORY OF PRESENT ILLNESS: Patient is postop day #2 status post excisional debridement of nonhealing occipital posterior scalp wound with [place] drain placement. Patient denies any pain. Denies any nausea or vomiting. Afebrile. Wound culture growing MRSA. Potassium up from 3.3-3.7 PHYSICAL EXAM: VITAL SIGNS: Reviewed GENERAL: Well-developed in no acute distress. HEENT: No sclera icterus. Extraocular movements grossly intact. Moist buccal mucosa. Head is normocephalic. Hears conversational speech. No nasal drainage. Incision occipital aspect of the head on the right with [place] drain. There is serosanguineous drainage noted on the gauze. Otherwise clean dry and intact. NECK: Supple without lymphadenopathy. CHEST: Non-labored respirations and equal bilateral excursions. CARDIOVASCULAR: Palpable 2+ radial pulses. ABDOMEN: Soft. Nondistended. Nontender. MUSCULOSKELETAL: No clubbing or cyanosis. NEUROLOGIC: No focal or lateralizing signs. Cranial nerves II through XII grossly intact. PSYCH: Appropriate affect. Alert and oriented to person, place and time. SKIN: Well perfused. Good skin turgor. ASSESSMENT: 1. Ulcerative necrotic right posterior occipital scalp wound status post debridement with [place] drain placed 2. History of breast cancer 3. Hypokalemia improved PLAN: -Patient can be discharged from surgical standpoint when medically cleared -Continue antibiotics per ID service -[place] drain will be discontinued in the office in 2 weeks Physician Assistant Administrator note has been reviewed by physician. Signing provider agrees with the documented findings, assessment, and plan of care. Objective - Vital Signs Vital signs: Vital Signs Temp 98.2 F 09/27/21 08:00 Pulse 78 09/27/21 08:00 Resp 18 09/27/21 08:00 BP 158/81 09/27/21 08:00 Pulse Ox 90 L 09/27/21 08:00 FiO2 Intake & Output 09/26/21 09/27/21 09/27/21 18:59 06:59 18:59 Intake Total 480 480 Balance 480 480 Intake: Oral 480 480 Other: Voiding Method Toilet Toilet Toilet Bedpan Bedpan # Voids 2 1 - Labs CBC & Chem 7: 09/26/21 05:36 09/27/21 10:55 Labs: Abnormal Lab Results - Last 24 Hours (Table) 09/27/21 Range/Units 10:55 BUN 2 L (7-17) mg/dL Microbiology - Last 24 Hours (Table) 09/22/21 15:23 Blood Culture - Preliminary Blood No Growth after 96 hours 09/22/21 15:10 Blood Culture - Preliminary Blood No Growth after 96 hours
[2021-09-27 13:02] LABS: Prothrombin Time 11.2 sec (9.0-12.0)
--- NOTE | 2021-09-27 13:58 | P.DS ---
Providers Date of admission: 09/22/21 15:28 Expected date of discharge: 09/27/21 Attending physician: Joaquina Couch Consults: 09/22/21 15:28 Consult Physician Routine Consulting Provider: Raphael Berg Consult Reason/Comments: Nonhealing wound Do you want consulting provider notified?: Yes 09/22/21 22:02 Consult Physician Routine Consulting Provider: Xochilt Green Consult Reason/Comments: scalp abscess for drainage and deep cultures Do you want consulting provider notified?: Yes 09/23/21 15:21 Consult Physician Routine Consulting Provider: Dong Melendez Consult Reason/Comments: anxiety,medication managment Do you want consulting provider notified?: Yes Primary care physician: Gamaliel Castañeda [facility] Course: Final diagnosis Nonhealing ulcer on the right side of the neck at the occipital region with failed outpatient antibiotic therapy status post excisional debridement with general surgery and [place] drain placement.. Status post PICC line placement Hypokalemia, improved Hypomagnesemia, improved Hypertension Hyperlipidemia GERD Moderate protein calorie malnutrition with a BMI of 19.2 History of right breast cancer with lumpectomy and radiation in 2017 Anxiety/depression DVT prophylaxis Full code Discharge disposition Patient is being discharged in a stable condition with guarded prognosis to [facility] for continued IV antibiotic therapy. Patient will follow-up with Dr. White in the outpatient setting upon discharge. Patient is to follow- up with her primary care provider Dr. Walker on discharge from [facility]. Patient is to continue with IV vancomycin every 12 hours with pharmacy to dose for the next 2 weeks. Patient is to receive a PICC line prior to discharge. Recommend close outpatient follow-up at the wound care center with infectious disease Dr. Berg at [facility] in the next 1-2 weeks. patient will also need follow-up with general surgery Dr. Green for possible [place] drain removal.. Total time taken is greater than 35 minutes. Hospital course This is a 70-year-old female who was recently admitted with nonhealing ulcer noted on the right side of the skull base and failing outpatient therapy and is being closely monitored. Patient was evaluated by infectious disease maintained on IV antibiotics along with general surgery and underwent excisional debridement with [place] drain placement to the scalp wound. Patient will need close outpatient follow-up with Dr. Frazier for [place] drain removal in the next 1-2 weeks and also infectious disease follow-up as patient will be receiving a PICC line for IV antibiotic therapy. Patient does have an extensive past medical history of increased anxiety along with schizophrenia and recommend continue current medications as mentioned below. Patient is very anxious and nervous at times and continues to pick at wounds and needs encouragement to avoid to do so. Patient also with poor oral intake and has anxiety about eating and needs encouragement and recommend continue with pleasure foods that she desires and also ensure supplements with reencouragement. Patient will be unable to manage IV antibiotic therapy along with wound care and continuing to care for herself in the outpatient setting and patient is agreeable to rehab. Patient has been accepted at [facility] and will discharge after PICC line placement. Patient to receive a PICC line and will continue on a minimal of 2 weeks antibiotics on discharge and needs follow-up with Dr. Berg at the wound care center at [facility] in the next 1-2 weeks. Currently no reports of chest pain, shortness of breath, or palpitations. Patient is afebrile. No reports of nausea or vomiting and patient is tolerating diet. Patient will be going to [facility] today. Guarded prognosis. Physical exam: Gen: This is a 70-year-old female awake and alert and oriented 2, anxious, thin built, ill-appearing HEENT: Head is atraumatic, normocephalic. Pupils equal, round. Sclerae is anicteric. NECK: Supple. No JVD. No lymphadenopathy. No thyromegaly. LUNGS: Clear to auscultation. No wheezes or rhonchi. No intercostal retractions. HEART: Regular rate and rhythm. No murmur. ABDOMEN: Soft. Bowel sounds are present. No masses. No tenderness. EXTREMITIES: No pedal edema. No calf tenderness. NEUROLOGICAL: Patient is awake, alert and oriented x3. Cranial nerves 2 through 12 are grossly intact. Diffusely weak Please refer to medication reconciliation sheet for a list of medications. The impression and plan of care has been dictated by Corinne Borjas, Nurse Practitioner as directed. Dr. Iza MD I have performed a history and examination and MDM of this patient, discussed the same with the dictator, and agree with the dictator's assessment and plan as written ,documented as a scribe. Based on total visit time, I have performed more than 50% of the visit. Patient Condition at Discharge: Stable Plan - Discharge Summary Discharge Rx Participant: Yes New Discharge Prescriptions: New Ondansetron Odt [Zofran Odt] 4 mg PO Q8HR PRN #20 tab PRN Reason: Nausea OLANZapine [ZyPREXA] 5 mg PO Q6H PRN tab PRN Reason: Agitation Or Acute Anxiety Acetaminophen Tab [Tylenol] 650 mg PO Q6HR PRN tab PRN Reason: Mild Pain Or Fever > 100.5 Albuterol Nebulized [Ventolin Nebulized] 2.5 mg INHALATION RT-TID PRN ml PRN Reason: difficulty breathing Continue FLUoxetine HCL [Sarafem] 60 mg PO DAILY Albuterol Inhaler [Ventolin Hfa Inhaler] 1 puff INHALATION RT-TID PRN #8 gm PRN Reason: difficulty breathing OLANZapine ODT [ZyPREXA Zydis] 20 mg PO HS 30 Days tab Discontinued Sulfamethox-Tmp 800-160Mg [Bactrim DS 800-160 mg] 1 tab PO Q12HR #20 tab Discharge Medication List Albuterol Inhaler [Ventolin Hfa Inhaler] 1 puff INHALATION RT-TID PRN #8 gm 05/09/21 [Rx] OLANZapine ODT [ZyPREXA Zydis] 20 mg PO HS 30 Days tab 07/05/21 [Rx] FLUoxetine HCL [Sarafem] 60 mg PO DAILY 09/15/21 [History] Acetaminophen Tab [Tylenol] 650 mg PO Q6HR PRN tab 09/27/21 [Rx] Albuterol Nebulized [Ventolin Nebulized] 2.5 mg INHALATION RT-TID PRN ml 09/27/21 [Rx] OLANZapine [ZyPREXA] 5 mg PO Q6H PRN tab 09/27/21 [Rx] Ondansetron Odt [Zofran Odt] 4 mg PO Q8HR PRN #20 tab 09/27/21 [Rx] Follow up Appointment(s)/Referral(s): Xochilt Green MD [STAFF PHYSICIAN] - 10/12/21 Gamaliel Castañeda DO [Primary Care Provider] - 1-2 days Raphael Berg MD [STAFF PHYSICIAN] - 1 Week Activity/Diet/Wound Care/Special Instructions: Patient is going to [facility] on the ripton Activity as tolerated Recommend continue with current antibiotics and follow up with infectious disease closely as discussed Continue to encourage oral intake as patient reports difficulty with eating Patient prefers soups and grilled cheese and may continue with regular diet Continue with ensure enlive oral supplements twice a day with meals and patient prefers vanilla Patient will need follow-up with surgery in the outpatient setting for [place] drain removal Per Dr. Berg: Vancomycin IV (current dose 1250mg q12 hours)- pharmacy to dose x 2 weeks Follow up with Dr. Berg in the Wound Center at [facility] in 1 week - [phone]. Discharge Disposition: TRANSFER TO SNF/ECF
[2021-09-27] MEDS ORDERED: LIDOCAINE 1% INJ 10MG/ML (5 ML VIAL-PF) SQ ONE (14:16)
--- NOTE | 2021-09-27 14:39 | IR ---
PICC LINE PLACEMENT: HISTORY: Infection requiring long-term antibiotic therapy PROCEDURE: Ultrasound and fluoroscopic guidance of PICC line placement. COMPLICATIONS: None ANESTHESIA: 1. 1% Lidocaine locally. FINDINGS/TECHNIQUE: The procedure was explained to the patient. The risks, complications, benefits and alternatives were discussed and any questions were answered. Informed consent was obtained. The patient was placed supine on the fluoroscopic table and prepped and draped in the usual sterile fash ion. Utilizing a 21 gauge needle and sonographic and fluoroscopic guidance, access in the left basi lic vein was achieved and there is placement of a 0.018 guidewire. The vein is patent. A 4-F sheath was placed over the guidewire. The guidewire and dilator were removed and a 4-F. PICC line was plac ed through the sheath with the tip at the level of the SVC. The sheath was removed, the catheter was flushed and sutured into position. The patient was stable throughout the procedure and remained sta ble upon discharge from the Department of Radiology. The vein puncture was patent under ultrasound. A ceja scale image was obtained to document patency of the vein punctured. All elements of the maximal barrier technique were utilized. FLUOROSCOPY TIME: 0.4 minutes and one images IMPRESSION: Successful PICC line placement under ultrasound and fluoroscopic guidance.
--- NOTE | 2021-09-27 16:30 | P.PN ---
Subjective Progress Note Date: 09/27/21 Principal diagnosis: Scalp abscess/wound Patient is a 70-year female with a nonhealing wound to the posterior scalp area and concerning for an abscess and secondary cellulitis. On today's evaluation that is 09/27/2021,The patient remains to be afebrile, the patient is breathing comfortably on room air, the patient denies any worsening pain to the scalp wound area , the patient denies having any chest pain or shortness of breath or cough no abdominal pain or diarrhea Objective - Vital Signs Vital signs: Vital Signs Temp 98.2 F 09/27/21 08:00 Pulse 78 09/27/21 08:00 Resp 18 09/27/21 08:00 BP 158/81 09/27/21 08:00 Pulse Ox 90 L 09/27/21 08:00 FiO2 Intake & Output 09/26/21 09/27/21 09/27/21 18:59 06:59 18:59 Intake Total 480 480 Balance 480 480 Intake: Oral 480 480 Other: Voiding Method Toilet Toilet Toilet Bedpan Bedpan # Voids 2 1 - Exam GENERAL DESCRIPTION: Elderly female lying in bed, no distress. No tachypnea or accessory muscle of respiration use. HEENT: Scalp on the right side did have an open wound with surrounding swelling redness LUNGS: Unlabored breathing. Clear to auscultation anteriorly. No wheeze or crackle. HEART: S1, S2, regular rate and rhythm. No loud murmur ABDOMEN: Soft, no tenderness , guarding or rigidity, no organomegaly EXTREMITIES: No edema of feet. - Labs CBC & Chem 7: 09/26/21 05:36 09/27/21 10:55 Labs: Microbiology - Last 24 Hours (Table) 09/22/21 15:23 Blood Culture - Preliminary Blood No Growth after 96 hours 09/22/21 15:10 Blood Culture - Preliminary Blood No Growth after 96 hours Assessment and Plan (1) Scalp abscess Current Visit: Yes Status: Acute Code(s): L02.811 - CUTANEOUS ABSCESS OF HEAD [ANY PART, EXCEPT FACE] SNOMED Code(s): 26738413 Plan: 1patient with a right posterior scalp abscess and cellulitis with a nonhealing wound likely from gram-positive skin osei as the patient did have evidence of folliculitis and possible MRSA failing outpatient oral antibiotic therapy. Lo gael culture had been finalized with MRSA blood cultures negative 2patient has been evaluated by general surgery and possible debridement drainage of the abscess Completed on 09/25/2021. . 3Patient seem to have shown some clinical improvement, in view of the deep infection recommend getting a PICC line and plan is for 2 weeks of IV vancomycin and a close outpatient follow-up in the wound care center Time with Patient: Less than 30
[2021-09-28] MEDS ORDERED: VANCOMYCIN TROUGH DUE 1 EACH MISC MISCELLANE ONE (04:00)
== END 2021-09-27 16:33 | DRG 571 ==
LOC: EC 13:57 → 4SSUR 15:28
PROVIDERS: ADMIT Internal Medicine; ATTEND Internal Medicine
PROC: 0JB00ZZ Excision of Scalp Subcutaneous Tissue and Fascia, Open Approach (ICD-10-PCS; principal; 2021-09-25 07:30)
PROC: 0JB40ZZ Excision of Right Neck Subcutaneous Tissue and Fascia, Open Approach (ICD-10-PCS; principal; 2021-09-25 07:30)
PROC: 02HV33Z Insertion of Infusion Device into Superior Vena Cava, Percutaneous Approach (ICD-10-PCS; 2021-09-27)
DX: L02.811 Cutaneous abscess of head [any part, except face] (principal); E44.0 Moderate protein-calorie malnutrition; Z68.1 Body mass index [BMI] 19.9 or less, adult; B95.62 Methicillin resistant Staphylococcus aureus infection as the cause of diseases classified elsewhere; E78.5 Hyperlipidemia, unspecified; E83.42 Hypomagnesemia; I11.9 Hypertensive heart disease without heart failure; E87.6 Hypokalemia; F25.0 Schizoaffective disorder, bipolar type; F41.9 Anxiety disorder, unspecified; F32.A Depression, unspecified; K21.9 Gastro-esophageal reflux disease without esophagitis; M85.80 Other specified disorders of bone density and structure, unspecified site; Z92.3 Personal history of irradiation; Z85.3 Personal history of malignant neoplasm of breast; Z87.410 Personal history of cervical dysplasia; Z28.21 Immunization not carried out because of patient refusal; Z83.2 Family history of diseases of the blood and blood-forming organs and certain disorders involving the immune mechanism; Z87.01 Personal history of pneumonia (recurrent); Z91.14 Patient's other noncompliance with medication regimen; Z79.899 Other long term (current) drug therapy; Z80.0 Family history of malignant neoplasm of digestive organs
CPT/HCPCS: 36573; 80048; 80053; 80202; 83605; 83735; 84132; 85025; 85610; 85730; 87040; 87070; 87077; 87186; 87205; 88304; 96365; 96366; 96375; 99285

== ENCOUNTER 2022-02-19 12:11 | Observation (INO) | payer MEDICARE, BC ==
[2022-02-19] MEDS ORDERED: BACITRACIN OINT 1 EACH PACKET TOPICAL ONE (13:11)
--- NOTE | 2022-02-19 13:20 | ED ---
General Adult HPI - General Chief complaint: Skin/Abscess/Foreign Body Stated complaint: depression, sores on head Time Seen by Provider: 02/19/22 12:55 Source: patient, family Mode of arrival: wheelchair Limitations: no limitations - History of Present Illness Initial comments: Dictation was produced using [employer] dictation software. please excuse any grammatical, word or spelling errors. Chief Complaint: 71-year-old female presents with friend for bizarre behavior and wounds to the scalp History of Present Illness: 71-year-old female she has history of scalp infection secondary to MRSA. Patient recovered from that. Over the last couple days she's been noncompliant with her psychiatric medications. Family friend is at the bedside states that patient has been displaying signs of bizarre behavior where she would go outside and sit in the car. She would live on taking her medications which she really doesn't. Denies any suicidal or homicidal ideation. Family friend at bedside requests the patient have mental health e valuation. The ROS documented in this emergency department record has been reviewed and confirmed by me. Those systems with pertinent positive or negative responses have been documented in the HPI. All other systems are other negative and/or noncontributory. PHYSICAL EXAM: General Impression: Alert and oriented x3, not in acute distress HEENT: Normocephalic atraumatic, extra-ocular movements intact, pupils equal and reactive to light bilaterally, mucous membranes moist. Cardiovascular: Heart regular rate and rhythm Chest: Able to complete full sentences, no retractions, no tachypnea Abdomen: abdomen soft, non-tender, non-distended, no organomegaly Musculoskeletal: Pulses present and equal in all extremities, no peripheral edema Motor: no focal deficits noted Neurological: CN II-XII grossly intact, no focal motor or sensory deficits noted Skin: Non-erythematous nonindurated dry scalp ulcers. Psych: Normal affect and mood ED course: 71-year-old female presents emergency department or bizarre behavior. Family friend at bedside requests mental health evaluation. All signs upon arrival are within acceptable limits. Patient has scalp lesions that do not appear to be cellulitic. She is however given topical bacitracin for them. Nursing notes and chart review was performed Chart was reviewed at a later date. It appeared that patient was admitted for urinary tract infection. - Related Data Home Medications Medication Instructions Recorded Confirmed OLANZapine [ZyPREXA] 10 mg PO HS 02/19/22 02/19/22 Previous Rx's Medication Instructions Recorded cefUROXime axetiL [Cefuroxime] 500 mg PO BID 7 Days #14 tab 02/22/22 Allergies Allergy/AdvReac Type Severity Reaction Status Date / Time No Known Allergies Allergy Verified 02/19/22 16:43 Review of Systems ROS Statement: Those systems with pertinent positive or pertinent negative responses have been documented in the HPI. ROS Other: All systems not noted in ROS Statement are negative. Past Medical History Past Medical History: Cancer, Eye Disorder, GERD/Reflux, Hyperlipidemia, Hypertension, Pneumonia Additional Past Medical History / Comment(s): R breast cancer with lumpectomy and radiation 2016, osteopenia, vertigo at times, dry eyes bilaterally,hypotensive episode 01/22/19. PAST [employer] HISTORY: She has no history of STDs. 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 Cervical dysplasia 1988. History of Any Multi-Drug Resistant Organisms: MRSA Date of last positivie culture/infection: 09/22/21 MDRO Source:: Head Past Surgical History: Breast Surgery, Tonsillectomy Additional Past Surgical History / Comment(s): 1989 R breast excisional biopsy, benign cyst removed from R breast, 2016 R breast lumpectomy, D&C, cervical conization 1988, colonoscopy 2001. Past Anesthesia/Blood Transfusion Reactions: No Reported Reaction Additional Past Anesthesia/Blood Transfusion Reaction / Comment(s): "Sensitivity to anesthesia" Past Psychological History: Anxiety, Depression Smoking Status: Never smoker Past Alcohol Use History: Occasional Past Drug Use History: None Reported - Past Family History Father Family Medical History: Cancer Additional Family Medical History / Comment(s): Father at age 74 from colon cancer. Mother Family Medical History: Deep Vein Thrombosis (DVT) Additional Family Medical History / Comment(s): Mother had back problems and scoliosis and at age 89. Brother(s) Additional Family Medical History / Comment(s): Patient has 1 brother with no major medical problems. Patient does not have any sisters. Patient has 1 son. General Exam Limitations: no limitations Course Vital Signs 02/19/22 02/19/22 02/19/22 12:37 14:23 18:51 Temperature 97.7 F 98.2 F Pulse Rate 110 H 86 Respiratory 20 18 18 Rate Blood Pressure 93/60 126/74 O2 Sat by Pulse 98 99 Oximetry 02/20/22 02/20/22 02/20/22 02:00 07:00 19:26 Temperature Pulse Rate 88 74 83 Respiratory 16 18 18 Rate Blood Pressure 110/68 145/92 139/86 O2 Sat by Pulse 95 99 99 Oximetry 02/21/22 16:00 Temperature Pulse Rate 65 Respiratory 18 Rate Blood Pressure 124/76 O2 Sat by Pulse 99 Oximetry Medical Decision Making - Lab Data Result diagrams: 02/22/22 02:51 02/22/22 02:51 Lab Results 02/19/22 02/19/22 02/19/22 Range/Units 19:40 19:40 19:40 WBC 7.7 (3.8-10.6) k/uL RBC 4.59 (3.80-5.40) m/uL Hgb 13.6 (11.4-16.0) gm/dL Hct 39.8 (34.0-46.0) % MCV 86.9 (80.0-100.0) fL MCH 29.6 (25.0-35.0) pg MCHC 34.1 (31.0-37.0) g/dL RDW 12.8 (11.5-15.5) % Plt Count 343 (150-450) k/uL MPV 6.8 Neutrophils % 63 % Lymphocytes % 28 % Monocytes % 7 % Eosinophils % 1 % Basophils % 1 % Neutrophils # 4.9 (1.3-7.7) k/uL Lymphocytes # 2.2 (1.0-4.8) k/uL Monocytes # 0.5 (0-1.0) k/uL Eosinophils # 0.1 (0-0.7) k/uL Basophils # 0.1 (0-0.2) k/uL Sodium 138 (137-145) mmol/L Potassium 3.3 L (3.5-5.1) mmol/L Chloride 101 (98-107) mmol/L Carbon Dioxide 31 H (22-30) mmol/L Anion Gap 6 mmol/L BUN 22 H (7-17) mg/dL Creatinine 0.76 (0.52-1.04) mg/dL Est GFR (CKD-EPI)AfAm >90 (>60 ml/min/1.73 sqM) Est GFR (CKD-EPI)NonAf 80 (>60 ml/min/1.73 sqM) Glucose 104 H (74-99) mg/dL Calcium 9.3 (8.4-10.2) mg/dL Magnesium (1.6-2.3) mg/dL Urine Color Urine Appearance (Clear) Urine pH (5.0-8.0) Ur Specific [place] (1.001-1.035) Urine Protein (Negative) Urine Glucose (UA) (Negative) Urine Ketones (Negative) Urine Blood (Negative) Urine Nitrite (Negative) Urine Bilirubin (Negative) Urine Urobilinogen (<2.0) mg/dL Ur Leukocyte Esterase (Negative) Urine RBC (0-5) /hpf Urine WBC (0-5) /hpf Urine WBC Clumps (None) /hpf Urine Bacteria (None) /hpf Urine Mucus (None) /hpf Urine Opiates Screen (NotDetected) Ur Oxycodone Screen (NotDetected) Urine Methadone Screen (NotDetected) Ur Propoxyphene Screen (NotDetected) Ur Barbiturates Screen (NotDetected) U Tricyclic Antidepress (NotDetected) Ur Phencyclidine Scrn (NotDetected) Ur Amphetamines Screen (NotDetected) U Methamphetamines Scrn (NotDetected) U Benzodiazepines Scrn (NotDetected) Urine Cocaine Screen (NotDetected) U Marijuana (THC) Screen (NotDetected) Coronavirus (PCR) Not Detected (Not Detectd) 02/21/22 02/21/22 02/21/22 Range/Units 11:45 17:57 17:57 WBC (3.8-10.6) k/uL RBC (3.80-5.40) m/uL Hgb (11.4-16.0) gm/dL Hct (34.0-46.0) % MCV (80.0-100.0) fL MCH (25.0-35.0) pg MCHC (31.0-37.0) g/dL RDW (11.5-15.5) % Plt Count (150-450) k/uL MPV Neutrophils % % Lymphocytes % % Monocytes % % Eosinophils % % Basophils % % Neutrophils # (1.3-7.7) k/uL Lymphocytes # (1.0-4.8) k/uL Monocytes # (0-1.0) k/uL Eosinophils # (0-0.7) k/uL Basophils # (0-0.2) k/uL Sodium (137-145) mmol/L Potassium (3.5-5.1) mmol/L Chloride (98-107) mmol/L Carbon Dioxide (22-30) mmol/L Anion Gap mmol/L BUN (7-17) mg/dL Creatinine (0.52-1.04) mg/dL Est GFR (CKD-EPI)AfAm (>60 ml/min/1.73 sqM) Est GFR (CKD-EPI)NonAf (>60 ml/min/1.73 sqM) Glucose (74-99) mg/dL Calcium (8.4-10.2) mg/dL Magnesium 2.1 (1.6-2.3) mg/dL Urine Color Yellow Urine Appearance Turbid H (Clear) Urine pH 6.0 (5.0-8.0) Ur Specific [place] 1.019 (1.001-1.035) Urine Protein 3+ H (Negative) Urine Glucose (UA) Negative (Negative) Urine Ketones Negative (Negative) Urine Blood Moderate H (Negative) Urine Nitrite Positive H (Negative) Urine Bilirubin Negative (Negative) Urine Urobilinogen <2.0 (<2.0) mg/dL Ur Leukocyte Esterase Large H (Negative) Urine RBC 16 H (0-5) /hpf Urine WBC >182 H (0-5) /hpf Urine WBC Clumps Many H (None) /hpf Urine Bacteria Many H (None) /hpf Urine Mucus Many H (None) /hpf Urine Opiates Screen Not Detected (NotDetected) Ur Oxycodone Screen Not Detected (NotDetected) Urine Methadone Screen Not Detected (NotDetected) Ur Propoxyphene Screen Not Detected (NotDetected) Ur Barbiturates Screen Not Detected (NotDetected) U Tricyclic Antidepress Not Detected (NotDetected) Ur Phencyclidine Scrn Not Detected (NotDetected) Ur Amphetamines Screen Not Detected (NotDetected) U Methamphetamines Scrn Not Detected (NotDetected) U Benzodiazepines Scrn Not Detected (NotDetected) Urine Cocaine Screen Not Detected (NotDetected) U Marijuana (THC) Screen Not Detected (NotDetected) Coronavirus (PCR) (Not Detectd) Disposition Clinical Impression: Hypokalemia, Acute psychosis, Acute UTI, Psychosis Disposition: ADMITTED IP TO THIS HOSP Condition: Fair
[2022-02-19 19:50] LABS: Basophils # (A) 0.1 k/uL (0-0.2); Basophils % (A) 1 %; Eosinophils # (A) 0.1 k/uL (0-0.7); Eosinophils % (A) 1 %; HCT 39.8 % (34.0-46.0); HGB 13.6 gm/dL (11.4-16.0); Lymphocytes # (A) 2.2 k/uL (1.0-4.8); Lymphocytes % (A) 28 %; MCH 29.6 pg (25.0-35.0); MCHC 34.1 g/dL (31.0-37.0); MCV 86.9 fL (80.0-100.0); Mean Platelet Volume 6.8; Monocytes # (A) 0.5 k/uL (0-1.0); Monocytes % (A) 7 %; Neutrophils # (A) 4.9 k/uL (1.3-7.7); Neutrophils % (A) 63 %; Platelet Count 343 k/uL (150-450); RBC 4.59 m/uL (3.80-5.40); RDW 12.8 % (11.5-15.5); WBC 7.7 k/uL (3.8-10.6)
[2022-02-19 20:05] LABS: African American GFR (CKD) >90 (>60 ml/min/1.73 sqM); Anion Gap 6 mmol/L; Blood Urea Nitrogen 22 mg/dL (7-17); Calcium 9.3 mg/dL (8.4-10.2); Carbon Dioxide 31 mmol/L (22-30); Chloride 101 mmol/L (98-107); Glucose 104 mg/dL (74-99); Non-African American GFR(CKD) 80 (>60 ml/min/1.73 sqM); Potassium 3.3 mmol/L (3.5-5.1); Sodium 138 mmol/L (137-145)
[2022-02-21] MEDS ORDERED: POTASSIUM CHLORIDE ER 20 MEQ TAB.ER PO STA (13:33)
--- NOTE | 2022-02-21 14:46 | ED ---
Medical Decision Making - Medical Decision Making Patient laboratory work done which showed evidence of mild hypokalemia she was given potassium supplementation EKG was done showing similar configuration read by me compared to 05/07/21. - Lab Data Result diagrams: 02/22/22 02:51 02/22/22 02:51 Lab Results 02/19/22 02/19/22 02/19/22 Range/Units 19:40 19:40 19:40 WBC 7.7 (3.8-10.6) k/uL RBC 4.59 (3.80-5.40) m/uL Hgb 13.6 (11.4-16.0) gm/dL Hct 39.8 (34.0-46.0) % MCV 86.9 (80.0-100.0) fL MCH 29.6 (25.0-35.0) pg MCHC 34.1 (31.0-37.0) g/dL RDW 12.8 (11.5-15.5) % Plt Count 343 (150-450) k/uL MPV 6.8 Neutrophils % 63 % Lymphocytes % 28 % Monocytes % 7 % Eosinophils % 1 % Basophils % 1 % Neutrophils # 4.9 (1.3-7.7) k/uL Lymphocytes # 2.2 (1.0-4.8) k/uL Monocytes # 0.5 (0-1.0) k/uL Eosinophils # 0.1 (0-0.7) k/uL Basophils # 0.1 (0-0.2) k/uL Sodium 138 (137-145) mmol/L Potassium 3.3 L (3.5-5.1) mmol/L Chloride 101 (98-107) mmol/L Carbon Dioxide 31 H (22-30) mmol/L Anion Gap 6 mmol/L BUN 22 H (7-17) mg/dL Creatinine 0.76 (0.52-1.04) mg/dL Est GFR (CKD-EPI)AfAm >90 (>60 ml/min/1.73 sqM) Est GFR (CKD-EPI)NonAf 80 (>60 ml/min/1.73 sqM) Glucose 104 H (74-99) mg/dL Calcium 9.3 (8.4-10.2) mg/dL Magnesium (1.6-2.3) mg/dL Coronavirus (PCR) Not Detected (Not Detectd) 02/21/22 Range/Units 11:45 WBC (3.8-10.6) k/uL RBC (3.80-5.40) m/uL Hgb (11.4-16.0) gm/dL Hct (34.0-46.0) % MCV (80.0-100.0) fL MCH (25.0-35.0) pg MCHC (31.0-37.0) g/dL RDW (11.5-15.5) % Plt Count (150-450) k/uL MPV Neutrophils % % Lymphocytes % % Monocytes % % Eosinophils % % Basophils % % Neutrophils # (1.3-7.7) k/uL Lymphocytes # (1.0-4.8) k/uL Monocytes # (0-1.0) k/uL Eosinophils # (0-0.7) k/uL Basophils # (0-0.2) k/uL Sodium (137-145) mmol/L Potassium (3.5-5.1) mmol/L Chloride (98-107) mmol/L Carbon Dioxide (22-30) mmol/L Anion Gap mmol/L BUN (7-17) mg/dL Creatinine (0.52-1.04) mg/dL Est GFR (CKD-EPI)AfAm (>60 ml/min/1.73 sqM) Est GFR (CKD-EPI)NonAf (>60 ml/min/1.73 sqM) Glucose (74-99) mg/dL Calcium (8.4-10.2) mg/dL Magnesium 2.1 (1.6-2.3) mg/dL Coronavirus (PCR) (Not Detectd) - EKG Data -: EKG Interpreted by Me EKG Comments: EKG interpreted by me sinus rhythm a 67. Interval 190 QRS duration 78 QT since QTC 432/[address] T-wave configuration is compared with one dated 05/07/21 showing similar configuration. Disposition Clinical Impression: Hypokalemia, Acute psychosis, Acute UTI, Psychosis Disposition: ADMITTED IP TO THIS HOSP Condition: Fair
[2022-02-21 18:08] LABS: Appearance,Urine Turbid (Clear); Bacteria,Urine Many /hpf; Bilirubin,Urine Negative (Negative); Blood,Urine Moderate (Negative); Color,Urine Yellow; Glucose,Urine (UA) Negative (Negative); Ketones,Urine Negative (Negative); Leukocyte Esterase,Urine Large (Negative); Mucus,Urine Many /hpf; Nitrite,Urine Positive (Negative); Protein,Urine 3+ (Negative); RBC,Urine 16 /hpf (0-5); Urobilinogen,Urine <2.0 mg/dL (<2.0); WBC,Urine >182 /hpf (0-5)
[2022-02-21 18:09] LABS: Specific Gravity,Urine 1.019 (1.001-1.035)
[2022-02-21 18:15] LABS: Amphetamine Screen,Urine Not Detected (NotDetected); Barbiturate Screen,Urine Not Detected (NotDetected); Benzodiazepines Screen,Urine Not Detected (NotDetected); Cocaine Screen,Urine Not Detected (NotDetected); Methadone Screen, Urine Not Detected (NotDetected); Opiate Screen,Urine Not Detected (NotDetected); Oxycodone Screen, Urine Not Detected (NotDetected); Phencyclidine Screen,Urine Not Detected (NotDetected); Tricyclic Antidepressant,Urine Not Detected (NotDetected); Urn Cannabinoid Scrn Not Detected (NotDetected)
[2022-02-22] MEDS ORDERED: SODIUM CHLORIDE 0.9% 1,000 ML IV STA ×2 (01:19)
[2022-02-22] MEDS ORDERED: SODIUM CHLORIDE 0.9% 1,000 ML IV ONE (01:19)
[2022-02-22] MEDS ORDERED: SODIUM CHLORIDE 0.9% 500 ML 500 ML IV STA (01:19)
--- NOTE | 2022-02-22 01:22 | ED ---
Medical Decision Making - Medical Decision Making 71 female to the emergency department for evaluation of psychosis patient is found of altered mental status and a significant urinary tract infection. Patient be admitted medically for clearing of urinary tract infection IV antibiotics and psychiatric evaluation and treatment - Lab Data Result diagrams: 02/19/22 19:40 02/19/22 19:40 Lab Results 02/19/22 02/19/22 02/19/22 Range/Units 19:40 19:40 19:40 WBC 7.7 (3.8-10.6) k/uL RBC 4.59 (3.80-5.40) m/uL Hgb 13.6 (11.4-16.0) gm/dL Hct 39.8 (34.0-46.0) % MCV 86.9 (80.0-100.0) fL MCH 29.6 (25.0-35.0) pg MCHC 34.1 (31.0-37.0) g/dL RDW 12.8 (11.5-15.5) % Plt Count 343 (150-450) k/uL MPV 6.8 Neutrophils % 63 % Lymphocytes % 28 % Monocytes % 7 % Eosinophils % 1 % Basophils % 1 % Neutrophils # 4.9 (1.3-7.7) k/uL Lymphocytes # 2.2 (1.0-4.8) k/uL Monocytes # 0.5 (0-1.0) k/uL Eosinophils # 0.1 (0-0.7) k/uL Basophils # 0.1 (0-0.2) k/uL Sodium 138 (137-145) mmol/L Potassium 3.3 L (3.5-5.1) mmol/L Chloride 101 (98-107) mmol/L Carbon Dioxide 31 H (22-30) mmol/L Anion Gap 6 mmol/L BUN 22 H (7-17) mg/dL Creatinine 0.76 (0.52-1.04) mg/dL Est GFR (CKD-EPI)AfAm >90 (>60 ml/min/1.73 sqM) Est GFR (CKD-EPI)NonAf 80 (>60 ml/min/1.73 sqM) Glucose 104 H (74-99) mg/dL Calcium 9.3 (8.4-10.2) mg/dL Magnesium (1.6-2.3) mg/dL Urine Color Urine Appearance (Clear) Urine pH (5.0-8.0) Ur Specific [place] (1.001-1.035) Urine Protein (Negative) Urine Glucose (UA) (Negative) Urine Ketones (Negative) Urine Blood (Negative) Urine Nitrite (Negative) Urine Bilirubin (Negative) Urine Urobilinogen (<2.0) mg/dL Ur Leukocyte Esterase (Negative) Urine RBC (0-5) /hpf Urine WBC (0-5) /hpf Urine WBC Clumps (None) /hpf Urine Bacteria (None) /hpf Urine Mucus (None) /hpf Urine Opiates Screen (NotDetected) Ur Oxycodone Screen (NotDetected) Urine Methadone Screen (NotDetected) Ur Propoxyphene Screen (NotDetected) Ur Barbiturates Screen (NotDetected) U Tricyclic Antidepress (NotDetected) Ur Phencyclidine Scrn (NotDetected) Ur Amphetamines Screen (NotDetected) U Methamphetamines Scrn (NotDetected) U Benzodiazepines Scrn (NotDetected) Urine Cocaine Screen (NotDetected) U Marijuana (THC) Screen (NotDetected) Coronavirus (PCR) Not Detected (Not Detectd) 02/21/22 02/21/22 02/21/22 Range/Units 11:45 17:57 17:57 WBC (3.8-10.6) k/uL RBC (3.80-5.40) m/uL Hgb (11.4-16.0) gm/dL Hct (34.0-46.0) % MCV (80.0-100.0) fL MCH (25.0-35.0) pg MCHC (31.0-37.0) g/dL RDW (11.5-15.5) % Plt Count (150-450) k/uL MPV Neutrophils % % Lymphocytes % % Monocytes % % Eosinophils % % Basophils % % Neutrophils # (1.3-7.7) k/uL Lymphocytes # (1.0-4.8) k/uL Monocytes # (0-1.0) k/uL Eosinophils # (0-0.7) k/uL Basophils # (0-0.2) k/uL Sodium (137-145) mmol/L Potassium (3.5-5.1) mmol/L Chloride (98-107) mmol/L Carbon Dioxide (22-30) mmol/L Anion Gap mmol/L BUN (7-17) mg/dL Creatinine (0.52-1.04) mg/dL Est GFR (CKD-EPI)AfAm (>60 ml/min/1.73 sqM) Est GFR (CKD-EPI)NonAf (>60 ml/min/1.73 sqM) Glucose (74-99) mg/dL Calcium (8.4-10.2) mg/dL Magnesium 2.1 (1.6-2.3) mg/dL Urine Color Yellow Urine Appearance Turbid H (Clear) Urine pH 6.0 (5.0-8.0) Ur Specific [place] 1.019 (1.001-1.035) Urine Protein 3+ H (Negative) Urine Glucose (UA) Negative (Negative) Urine Ketones Negative (Negative) Urine Blood Moderate H (Negative) Urine Nitrite Positive H (Negative) Urine Bilirubin Negative (Negative) Urine Urobilinogen <2.0 (<2.0) mg/dL Ur Leukocyte Esterase Large H (Negative) Urine RBC 16 H (0-5) /hpf Urine WBC >182 H (0-5) /hpf Urine WBC Clumps Many H (None) /hpf Urine Bacteria Many H (None) /hpf Urine Mucus Many H (None) /hpf Urine Opiates Screen Not Detected (NotDetected) Ur Oxycodone Screen Not Detected (NotDetected) Urine Methadone Screen Not Detected (NotDetected) Ur Propoxyphene Screen Not Detected (NotDetected) Ur Barbiturates Screen Not Detected (NotDetected) U Tricyclic Antidepress Not Detected (NotDetected) Ur Phencyclidine Scrn Not Detected (NotDetected) Ur Amphetamines Screen Not Detected (NotDetected) U Methamphetamines Scrn Not Detected (NotDetected) U Benzodiazepines Scrn Not Detected (NotDetected) Urine Cocaine Screen Not Detected (NotDetected) U Marijuana (THC) Screen Not Detected (NotDetected) Coronavirus (PCR) (Not Detectd) Disposition Clinical Impression: Hypokalemia, Acute psychosis, Acute UTI, Psychosis Disposition: ADMITTED IP TO THIS [facility] Condition: Fair Is patient prescribed a controlled substance at d/c from ED?: No Referrals: Garry,Gamaliel, DO [Primary Care Provider] - 1-2 days
[2022-02-22 03:07] LABS: Basophils % (A) 0 %; Eosinophils # (A) 0.1 k/uL (0-0.7); Eosinophils % (A) 2 %; HCT 35.3 % (34.0-46.0); HGB 11.9 gm/dL (11.4-16.0); Lymphocytes # (A) 2.3 k/uL (1.0-4.8); Lymphocytes % (A) 29 %; MCH 29.9 pg (25.0-35.0); MCHC 33.7 g/dL (31.0-37.0); MCV 88.8 fL (80.0-100.0); Mean Platelet Volume 7.3; Monocytes # (A) 0.4 k/uL (0-1.0); Monocytes % (A) 5 %; Neutrophils % (A) 63 %; Platelet Count 262 k/uL (150-450); RBC 3.98 m/uL (3.80-5.40); RDW 13.1 % (11.5-15.5); WBC 7.9 k/uL (3.8-10.6)
[2022-02-22 03:18] LABS: ALT 13 U/L (4-34); African American GFR (CKD) >90 (>60 ml/min/1.73 sqM); Anion Gap 5 mmol/L; Blood Urea Nitrogen 10 mg/dL (7-17); Calcium 8.1 mg/dL (8.4-10.2); Carbon Dioxide 24 mmol/L (22-30); Chloride 109 mmol/L (98-107); Glucose 114 mg/dL (74-99); Non-African American GFR(CKD) >90 (>60 ml/min/1.73 sqM); Sodium 138 mmol/L (137-145); Total Bilirubin 0.5 mg/dL (0.2-1.3)
[2022-02-22 03:22] LABS: Magnesium 1.9 mg/dL (1.6-2.3); Phosphorus 3.1 mg/dL (2.5-4.5); Potassium 4.4 mmol/L (3.5-5.1); Total Protein 6.1 g/dL (6.3-8.2)
[2022-02-22 03:23] LABS: AST 24 U/L (14-36); Albumin 3.2 g/dL (3.5-5.0); Alkaline Phosphatase 60 U/L (38-126)
[2022-02-22] MEDS ORDERED: ONDANSETRON 4 MG/2 ML VIAL IVP PRN (09:45)
[2022-02-22] MEDS ORDERED: ACETAMINOPHEN TAB 325 MG TAB PO PRN (09:45)
[2022-02-22 13:15] VITALS: BMI 17.7
[2022-02-22 13:36] VITALS: BP 148/76; PULSE 85; RESP 16; TEMP 98
--- NOTE | 2022-02-22 15:01 | P.HPIM ---
History of Present Illness H&P Date: 02/22/22 This is a 71-year-old female who presented to the emergency department with a friend requesting a psychiatric evaluation as patient has been having bizarre behavior and acute psychosis. Patient reports she follows with Dr. Castañeda in the outpatient setting with a past medical history of right breast cancer in 2017, GERD, acid reflux, hyperlipidemia, hypertension, anxiety/depression. Patient had urinalysis done in the ER which was positive for nitrates and leukocytes and sent for urine culture which is pending. Patient was started on ceftriaxone for possible UTI. On exam asked if patient was having any symptoms of burning or pain or frequency with urination and patient denies all of this. Patient reported she had a wound culture done on her scalp as well she has chronic MRSA and continues to pick at the scabs and wounds on her head. Patient has been given bacitracin. Patient only medication is Zyprexa and friend that was originally in the ER reports she has not been taking her meds as scheduled. Patient reports she used to follow with [facility] outpatient although has not rece ntly. Patient was admitted for possible UTI with psychiatric evaluation. Review Of Systems: Constitutional: No fever, no chills, no night sweats. No weight change. No weakness, fatigue or lethargy. No daytime sleepiness. EENT: No headache. No blurred vision or double vision, no loss of vision. No loss of Hearing, no ringing in the ears, no dizziness. No nasal drainage or congestion. No epistaxis. No sore throat. Lungs: Reports of shortness of breath, cough, no sputum production. No wh eezing. Cardiovascular: No chest pain, no lower extremity edema. No palpitations. No paroxysmal nocturnal dyspnea. No orthopnea. No lightheadedness or dizziness. No syncopal episodes. Abdominal: No abdominal pain. No nausea, vomiting. No diarrhea. No constipation. No bloody or tarry stools.. No loss of appetite. Genitourinary: No dysuria, increased frequency, urgency. No urinary retention. Musculoskeletal: No myalgias. No muscle weakness, no gait dysfunction, no frequent falls. No back pain. No neck pain. Integumentary: No wounds, no lesions. No rash or pruritus. No unusual bru ising. No change in hair or nails. Neurologic: No aphasia. No facial droop. No change in mentation. No head injury. No headache. No paralysis. No paresthesia. Psychiatric: Reports depression. Reports anxiety. No mood swings. Endocrine: No abnormal blood sugars. No weight change. No excessive sweating or thirst. No cold intolerance. PHYSICAL EXAMINATION: GENERAL: The patient is alert and oriented x3, thin built, elderly appearing female, anxious, somewhat guarded HEENT: Pupils are round and equally reacting to light. EOMI. no scleral icterus. No conjunctival pallor. Normocephalic, atraumatic. No pharyngeal erythema. No thyromegaly. CARDIOVASCULAR: S1 and S2 muffled PULMONARY: diminished breath sounds bilaterally with no wheezing or rhonchi noted. ABDOMEN: soft. Nontender on exam. non-distended, normoactive bowel sounds. No palpable organomegaly. MUSCULOSKELETAL: No joint swelling or deformity. EXTREMITIES: No cyanosis, clubbing, or pedal edema. NEUROLOGICAL: Gross neurological examination did not reveal any focal deficits. Diffuse weakness SKIN: No rashes. Multiple scalp wounds with scabbing and scratching trujillo this patient continuously picks and scratches at her scalp Assessment: Acute psychosis Noncompliance with medications Possible acute urinary tract infection, present on admission, most likely asymptomatic bacteriuria although cultures are pending History of MRSA with a chronic scalp wound GERD Hyperlipidemia Hypertension History of anxiety/depression GI prophylaxis DVT prophylaxis Full code Plan: Recommend to continue with current medications and management and was given a dose of antibiotics for UTI. Urine culture pending at this time Wound culture was obtained of the scalp and pending at this time Patient's urinalysis most likely asymptomatic bacteriuria as patient denies having any pain, frequency, urgency, dysuria. We'll give a course of antibiotics on discharge and recommend follow-up with PCP Psychiatry consulted and has cleared the patient for discharge and recommending follow-up with [facility] to reestablish services. Patient reports she stopped seeing them approximately 2 months ago. Encouraged medication compliance Recommend to continue bacitracin 2-3 times daily on the scalp and avoid picking and scratching Patient has been cleared by psychiatry and will be discharged today. Social work following and working on discharge planning. Prognosis is guarded The impression and plan of care has been dictated by Corinne Borjas, nurse practitioner as directed. Dr. Cris MD I have performed a history and examination and MDM of this patient, discussed the same with the dictator, and agree with the dictator's assessment and plan as written ,documented as a scribe. Based on total visit time, I have performed more than 50% of the visit. Any additional findings or plans will be noted. Past Medical History Past Medical History: Cancer, Eye Disorder, GERD/Reflux, Hyperlipidemia, Hypertension, Pneumonia Additional Past Medical History / Comment(s): R breast cancer with lumpectomy and radiation 2016, osteopenia, vertigo at times, dry eyes bilaterally,hypotensive episode 01/22/19. 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 Cervical dysplasia 1988. History of Any Multi-Drug Resistant Organisms: MRSA Date of last positivie culture/infection: 09/22/21 MDRO Source:: Head Past Surgical History: Breast Surgery, Tonsillectomy Additional Past Surgical History / Comment(s): 1989 R breast excisional biopsy, benign cyst removed from R breast, 2016 R breast lumpectomy, D&C, cervical conization 1988, colonoscopy 2001. Past Anesthesia/Blood Transfusion Reactions: No Reported Reaction Additional Past Anesthesia/Blood Transfusion Reaction / Comment(s): "Sensitivity to anesthesia" Past Psychological History: Anxiety, Depression Additional Psychological History / Comment(s): Pt resides at home with 2 room mates. She is independent. Smoking Status: Never smoker Past Alcohol Use History: Occasional Additional Past Alcohol Use History / Comment(s): Pt started smoking occasionally in her 20s and quit in her 30s. Pt states she drinks 2-3 beers a day. Past Drug Use History: None Reported - Past Family History Father Family Medical History: Cancer Additional Family Medical History / Comment(s): Father at age 74 from colon cancer. Mother Family Medical History: Deep Vein Thrombosis (DVT) Additional Family Medical History / Comment(s): Mother had back problems and scoliosis and at age 89. Brother(s) Additional Family Medical History / Comment(s): Patient has 1 brother with no major medical problems. Patient does not have any sisters. Patient has 1 son. Medications and Allergies Home Medications Medication Instructions Recorded Confirmed Type OLANZapine [ZyPREXA] 10 mg PO HS 02/19/22 02/19/22 History cefUROXime axetiL [Cefuroxime] 500 mg PO BID 7 Days #14 tab 02/22/22 Rx Allergies Allergy/AdvReac Type Severity Reaction Status Date / Time No Known Allergies Allergy Verified 02/19/22 16:43 Physical Exam Vitals: Vital Signs Temp Pulse Pulse Resp BP BP Pulse Ox 02/22/22 07:00 97.9 F 73 17 147/77 99 02/22/22 04:50 97.6 F 77 18 158/79 99 02/21/22 16:00 65 18 124/76 99 Intake and Output 02/21/22 02/22/22 02/22/22 22:59 06:59 14:59 Intake Total 300 118 Balance 300 118 Intake: Intake, IV Titration 300 Amount Sodium Chloride 0.9% 1, 200 000 ml @ 100 mls/hr IV . Q10H ONE Rx#:[id number] cefTRIAXone 1 gm In 100 Sodium Chloride 0.9% 50 ml @ 100 mls/hr IVPB Q12H MEI Rx#:[id number] Oral 118 Other: Voiding Method Toilet Weight 54.431 kg Results CBC & Chem 7: 02/22/22 02:51 02/22/22 02:51 Labs: Abnormal Lab Results - Last 24 Hours (Table) 02/21/22 02/22/22 Range/Units 17:57 02:51 Chloride 109 H (98-107) mmol/L Glucose 114 H (74-99) mg/dL Calcium 8.1 L (8.4-10.2) mg/dL Total Protein 6.1 L (6.3-8.2) g/dL Albumin 3.2 L (3.5-5.0) g/dL Urine Appearance Turbid H (Clear) Urine Protein 3+ H (Negative) Urine Blood Moderate H (Negative) Urine Nitrite Positive H (Negative) Ur Leukocyte Esterase Large H (Negative) Urine RBC 16 H (0-5) /hpf Urine WBC >182 H (0-5) /hpf Urine WBC Clumps Many H (None) /hpf Urine Bacteria Many H (None) /hpf Urine Mucus Many H (None) /hpf Microbiology - Last 24 Hours (Table) 02/21/22 11:48 Gram Stain - Preliminary Scalp Wound Culture - Preliminary Assessment and Plan Time with Patient: Greater than 30
--- NOTE | 2022-02-22 15:09 | P.CN ---
Psychiatric Consult - . Consult date: 02/22/22 Consult:: 02/22/22 15:08 IDENTIFYING DATA: This patient is a single, retired, 71-year-old female with significant history of schizoaffective disorder and skin picking disorder presented to the hospital for bizarre behavior and acute psychosis. HISTORY OF PRESENT ILLNESS: The patient presented to the hospital on 02/22/2022, brought into the emergency department by her friend/roommate for bizarre behavior and acute psychosis. Patient was noted to have a significant UTI when tested in the emergency department. She was subsequently admitted to the medical floor for treatment of UTI and for psychiatric evaluation. Upon evaluation on the medical floor, the patient is currently alert and oriented in all spheres. She is able to identify that she is in the hospital and that it is 02/22/2022. She is able to recall that she was brought to the hospital by her friend/roommate. She is currently vehemently denying any suicidal or homicidal ideation, intention, and/or plan. She is not reporting any auditory or visual hallucinations. She is denying any paranoia or bizarre delusions. The patient states that she continues to take her Zyprexa. She was previously open with [facility] however has not been going to any outpatient appointments recently. The patient reports that she is no longer under court order and therefore did not continue going. She was encouraged to continue to follow with [facility] in order to help address her history of schizoaffective disorder as well as her skin picking disorder. Collateral information was obtained by the patient's son Valentin Ennis. The patient's son reports that the patient has been overall much better than she was during her last inpatient psychiatric admission. She has been eating meals although does not eat as much as he would wish. He does report that she has had a gradual decline in her mental health however she is not severe enough to require inpatient psychiatric admission. He does wish for her to continue with outpatient treatment. PAST PSYCHIATRIC HISTORY: Patient has a schizoaffective disorder and skin picking disorder. She was discharged on a regimen of Prozac, Marinol, and Zyprexa. She is currently on a home regimen of Zyprexa 10 mg at bedtime. She was last hospitalized on our psychiatric unit in June 2021. She was previously open with [facility]. No reported history of suicide attempts. PAST MEDICAL HISTORY: Past Medical History: Cancer, Eye Disorder, GERD/Reflux, Hyperlipidemia, Hypertension, Pneumonia Additional Past Medical History / Comment(s): R breast cancer with lumpectomy and radiation 2016, osteopenia, vertigo at times, dry eyes bilaterally,hypotensive episode 01/22/19. 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 Cervical dysplasia 1988. History of Any Multi-Drug Resistant Organisms: MRSA Date of last positivie culture/infection: 09/22/21 MDRO Source:: Head Past Surgical History: Breast Surgery, Tonsillectomy Additional Past Surgical History / Comment(s): 1989 R breast excisional biopsy, benign cyst removed from R breast, 2016 R breast lumpectomy, D&C, cervical conization 1988, colonoscopy 2001. Past Anesthesia/Blood Transfusion Reactions: No Reported Reaction Additional Past Anesthesia/Blood Transfusion Reaction / Comment(s): "Sensitivity to anesthesia" Past Psychological History: Anxiety, Depression Additional Psychological History / Comment(s): Pt resides at home with 2 room mates. She is independent. Smoking Status: Never smoker Past Alcohol Use History: Occasional Additional Past Alcohol Use History / Comment(s): Pt started smoking occasionally in her 20s and quit in her 30s. Pt states she drinks 2-3 beers a d ay. Past Drug Use History: None Reported ALLERGIES: NO KNOWN DRUG ALLERGIES CHEMICAL DEPENDENCY HISTORY: Patient denies any tobacco, alcohol, marijuana, or illicit drug use. FAMILY PSYCHIATRIC/SUBSTANCE USE HISTORY: The patient reported that her mother has depression. SOCIAL HISTORY: Patient was born and raised in [place], [place]. She graduated high school and attended 2 years of college. She has 1 adult son and 2 grandchildren. She is retired. She currently lives with a friend/roommate. MENTAL STATUS EXAM: General Appearance: Patient appears to be stated age is alert, pleasant, and cooperative. Patient appears to have fair hygiene and grooming wearing hospital gown with fair eye contact. The patient has multiple lesions/laceration around her scalp and fingernails from her skin picking disorder. Behavior: Patient is calmly lying in bed without any agitated behavior. She continues to engage in skin picking. Speech: Patient's speech is fluent and nonpressured. Mood/Affect: Patient reports their mood is "doing okay, I want to go home", affect is congruent Suicidality/Homicidality: Patient vehemently denies any suicidal or homicidal ideation. Perceptions: Patient denies any visual hallucinations and denies any auditory hallucinations Though content/process: There is no evidence of any delusional thought content and thought process is linear and goal-directed. Memory and concentration: AOX3, grossly intact for the purposes of this session. Can spell "WORLD" backwards Judgment and insight: Fair Vital Signs Temp 98 F 02/22/22 13:35 Pulse 85 02/22/22 13:35 Resp 16 02/22/22 13:35 BP 148/76 02/22/22 13:35 Pulse Ox 98 02/22/22 13:35 FiO2 Intake & Output 02/21/22 02/22/22 02/22/22 18:59 06:59 18:59 Intake Total 300 118 Balance 300 118 Weight 54.431 kg 54.431 kg Intake: Intake, IV Titration 300 Amount Sodium Chloride 0.9% 1, 200 000 ml @ 100 mls/hr IV . Q10H ONE Rx#:[id number] cefTRIAXone 1 gm In 100 Sodium Chloride 0.9% 50 ml @ 100 mls/hr IVPB Q12H MEI Rx#:[id number] Oral 118 Other: Voiding Method Toilet Toilet # Voids 1 Laboratory Results WBC 7.9 k/uL (3.8-10.6) 02/22/22 02:51 RBC 3.98 m/uL (3.80-5.40) 02/22/22 02:51 Hgb 11.9 gm/dL (11.4-16.0) 02/22/22 02:51 Hct 35.3 % (34.0-46.0) 02/22/22 02:51 MCV 88.8 fL (80.0-100.0) 02/22/22 02:51 MCH 29.9 pg (25.0-35.0) 02/22/22 02:51 MCHC 33.7 g/dL (31.0-37.0) 02/22/22 02:51 RDW 13.1 % (11.5-15.5) 02/22/22 02:51 Plt Count 262 k/uL (150-450) 02/22/22 02:51 MPV 7.3 02/22/22 02:51 Neutrophils % 63 % 02/22/22 02:51 Lymphocytes % 29 % 02/22/22 02:51 Monocytes % 5 % 02/22/22 02:51 Eosinophils % 2 % 02/22/22 02:51 Basophils % 0 % 02/22/22 02:51 Neutrophils # 5.0 k/uL (1.3-7.7) 02/22/22 02:51 Lymphocytes # 2.3 k/uL (1.0-4.8) 02/22/22 02:51 Monocytes # 0.4 k/uL (0-1.0) 02/22/22 02:51 Eosinophils # 0.1 k/uL (0-0.7) 02/22/22 02:51 Basophils # 0.0 k/uL (0-0.2) 02/22/22 02:51 Sodium 138 mmol/L (137-145) 02/22/22 02:51 Potassium 4.4 mmol/L (3.5-5.1) 02/22/22 02:51 Chloride 109 mmol/L (98-107) H 02/22/22 02:51 Carbon Dioxide 24 mmol/L (22-30) 02/22/22 02:51 Anion Gap 5 mmol/L 02/22/22 02:51 BUN 10 mg/dL (7-17) 02/22/22 02:51 Creatinine 0.54 mg/dL (0.52-1.04) 02/22/22 02:51 Est GFR (CKD-EPI)AfAm >90 (>60 ml/min/1.73 sqM) 02/22/22 02:51 Est GFR (CKD-EPI)NonAf >90 (>60 ml/min/1.73 sqM) 02/22/22 02:51 Glucose 114 mg/dL (74-99) H 02/22/22 02:51 Calcium 8.1 mg/dL (8.4-10.2) L 02/22/22 02:51 Phosphorus 3.1 mg/dL (2.5-4.5) 02/22/22 02:51 Magnesium 1.9 mg/dL (1.6-2.3) 02/22/22 02:51 Total Bilirubin 0.5 mg/dL (0.2-1.3) 02/22/22 02:51 AST 24 U/L (14-36) 02/22/22 02:51 ALT 13 U/L (4-34) 02/22/22 02:51 Alkaline Phosphatase 60 U/L (38-126) 02/22/22 02:51 Total Protein 6.1 g/dL (6.3-8.2) L 02/22/22 02:51 Albumin 3.2 g/dL (3.5-5.0) L 02/22/22 02:51 Urine Color Yellow 02/21/22 17:57 Urine Appearance Turbid (Clear) H 02/21/22 17:57 Urine pH 6.0 (5.0-8.0) 02/21/22 17:57 Ur Specific Distant 1.019 (1.001-1.035) 02/21/22 17:57 Urine Protein 3+ (Negative) H 02/21/22 17:57 Urine Glucose (UA) Negative (Negative) 02/21/22 17:57 Urine Ketones Negative (Negative) 02/21/22 17:57 Urine Blood Moderate (Negative) H 02/21/22 17:57 Urine Nitrite Positive (Negative) H 02/21/22 17:57 Urine Bilirubin Negative (Negative) 02/21/22 17:57 Urine Urobilinogen <2.0 mg/dL (<2.0) 02/21/22 17:57 Ur Leukocyte Esterase Large (Negative) H 02/21/22 17:57 Urine RBC 16 /hpf (0-5) H 02/21/22 17:57 Urine WBC >182 /hpf (0-5) H 02/21/22 17:57 Urine WBC Clumps Many /hpf (None) H 02/21/22 17:57 Urine Bacteria Many /hpf (None) H 02/21/22 17:57 Urine Mucus Many /hpf (None) H 02/21/22 17:57 Urine Opiates Screen Not Detected (NotDetected) 02/21/22 17:57 Ur Oxycodone Screen Not Detected (NotDetected) 02/21/22 17:57 Urine Methadone Screen Not Detected (NotDetected) 02/21/22 17:57 Ur Propoxyphene Screen Not Detected (NotDetected) 02/21/22 17:57 Ur Barbiturates Screen Not Detected (NotDetected) 02/21/22 17:57 U Tricyclic Antidepress Not Detected (NotDetected) 02/21/22 17:57 Ur Phencyclidine Scrn Not Detected (NotDetected) 02/21/22 17:57 Ur Amphetamines Screen Not Detected (NotDetected) 02/21/22 17:57 U Methamphetamines Scrn Not Detected (NotDetected) 02/21/22 17:57 U Benzodiazepines Scrn Not Detected (NotDetected) 02/21/22 17:57 Urine Cocaine Screen Not Detected (NotDetected) 02/21/22 17:57 U Marijuana (THC) Screen Not Detected (NotDetected) 02/21/22 17:57 Coronavirus (PCR) Not Detected (Not Detectd) 02/19/22 19:40 IMPRESSIONS: Altered mental status, resolved Schizoaffective disorder, bipolar type Skin picking disorder PLAN: -At this time patient DOES NOT meet criteria for inpatient psychiatric admission. The patient is not presenting as overtly manic or psychotic. She is not endorsing any imminent risk of harm to self or others. Skin picking may be addressed in the outpatient setting. -Delirium precautions recommended with patient including - avoiding use of narcotics and BENDING ROLL HAND sedatives, limit anticholinergic medications when possible, frequent re-orientation, minimize use of restraints, open window shades during the day and close them at night -Would recommend the following medication changes/additions: Continue Zyprexa 10 mg by mouth at bedtime for schizoaffective disorder -Discontinue one-to-one sitter. -Recommend social work/case management to arrange for outpatient follow-up with [facility] prior to discharge. -Psychiatry will sign off at this point, please contact with any questions. 02/22/22 15:08
[2022-02-22] MEDS ORDERED: OLANZapine 10 MG TAB PO SCH (21:00)
--- NOTE | 2022-02-24 09:22 | P.DS ---
Providers Date of admission: 02/22/22 01:21 Expected date of discharge: 02/22/22 Attending physician: Doretha Gan Consults: 02/22/22 01:19 Consult Physician Routine Consulting Provider: Dong Melendez Consult Reason/Comments: psych Do you want consulting provider notified?: Yes Primary care physician: Gamaliel Castañeda [facility] Course: Final diagnosis Acute psychosis Noncompliance with medications Possible acute urinary tract infection, present on admission, most likely asymptomatic bacteriuria History of MRSA with a chronic scalp wound GERD Hyperlipidemia Hypertension History of anxiety/depression GI prophylaxis DVT prophylaxis Full code Discharge disposition Patient is being discharged in a stable condition with guarded prognosis to home. Patient will follow-up with Dr. Castañeda in the outpatient setting upon discharge. Patient is to follow up with [facility] to reestablish as scheduled. Patient will continue on oral Ceftin 500 mg twice daily for the next 1 week. Total time taken is greater than 35 minutes. Hospital course This is a 71-year-old female who was recently admitted with acute psychosis and was in the ER for quite some time. Patient was admitted for possible acute urinary tract infection along with psychosis and awaiting psychiatric evaluation. Patient was seen and evaluated by psychiatry and cleared for discharge to reestablish in the outpatient setting with [facility]. Patient reports she has not been seeing them in the last few months. Patient also started on antibiotics for possible acute urinary tract infection although patient denies any symptoms of burning or pain or frequency with urination. Patient did also have some chronic wounds on her scalp which has had MRSA previously as patient continues to pick and scratch. Recommend bacitracin 2-3 times daily to the sites and avoid itching and scratching. Patient also to continue on oral Ceftin 500 mg twice daily for the next 1 week Awaiting finalized scalp cultures. Scalp cultures resulted showing MRSA with sensitivities and will send a prescription for Bactrim to the pharmacy. Recommend close outpatient follow-up with primary care provider and a copy of this dictation will be sent. Currently no reports of chest pain, shortness of breath, or palpitations. Patient is afebrile. No reports of nausea or vomiting and patient is tolerating diet. Patient will be discharged home today. Guarded prognosis. She is high risk for readmission given comorbidities, mental health, noncompliance with medications. Physical exam: Gen: This is a 71-year-old female who is awake, alert and oriented 3, thin built, elderly appearing, anxious. HEENT: Head is atraumatic, normocephalic. Pupils equal, round. Sclerae is anicteric. NECK: Supple. No JVD. No lymphadenopathy. No thyromegaly. LUNGS: Clear to auscultation. No wheezes or rhonchi. No intercostal retractions. HEART: Regular rate and rhythm. No murmur. ABDOMEN: Soft. Bowel sounds are present. No masses. No tenderness. EXTREMITIES: No pedal edema. No calf tenderness. NEUROLOGICAL: Patient is awake, alert and oriented x3. Cranial nerves 2 through 12 are grossly intact Skin: Scalp with multiple scabs and signs of itching and scratching with minimal hair noted, not cellulitic. Please refer to medication reconciliation sheet for a list of medications. The impression and plan of care has been dictated by Corinne Borjas, Nurse Practitioner as directed. MD Ashtyn I have performed a history and examination and MDM of this patient, discussed the same with the dictator, and agree with the dictator's assessment and plan as written ,documented as a scribe. Based on total visit time, I have performed more than 50% of the visit. Patient Condition at Discharge: Fair Plan - Discharge Summary New Discharge Prescriptions: New cefUROXime axetiL [Cefuroxime] 500 mg PO BID 7 Days #14 tab Continue OLANZapine [ZyPREXA] 10 mg PO HS Discharge Medication List OLANZapine [ZyPREXA] 10 mg PO HS 02/19/22 [History] cefUROXime axetiL [Cefuroxime] 500 mg PO BID 7 Days #14 tab 02/22/22 [Rx] Follow up Appointment(s)/Referral(s): Gamaliel Castañeda DO [Primary Care Provider] - 1-2 days Activity/Diet/Wound Care/Special Instructions: PATIENT WILL NEED TO CALL [facility] ACCESS LINE @ TO RE-ESTABLISH SERVICES WITH THEM Activity Limited until follow-up Follow-up with primary care provider on discharge Continue antibiotics until finished Continue bacitracin 2-3 times daily on the scalp Avoid picking, itching, scratching the areas on the scalp Follow-up with [facility] this week Discharge Disposition: HOME SELF-CARE
== END 2022-02-22 16:15 | disposition home or self-care (01) ==
LOC: EC 12:11 → 6NMEDSUR 02-22 01:21
PROVIDERS: ADMIT Hospitalist; ATTEND Hospitalist
DX: F23 Brief psychotic disorder (principal); F25.0 Schizoaffective disorder, bipolar type; F42.4 Excoriation (skin-picking) disorder; L98.8 Other specified disorders of the skin and subcutaneous tissue; Z91.14 Patient's other noncompliance with medication regimen; E87.6 Hypokalemia; R82.90 Unspecified abnormal findings in urine; K21.9 Gastro-esophageal reflux disease without esophagitis; I10 Essential (primary) hypertension; E78.5 Hyperlipidemia, unspecified; M85.80 Other specified disorders of bone density and structure, unspecified site; F41.9 Anxiety disorder, unspecified; F32.A Depression, unspecified; Z20.822 Contact with and (suspected) exposure to COVID-19; Z79.899 Other long term (current) drug therapy; Z86.14 Personal history of Methicillin resistant Staphylococcus aureus infection; Z87.01 Personal history of pneumonia (recurrent); Z87.891 Personal history of nicotine dependence; Z85.3 Personal history of malignant neoplasm of breast; Z87.410 Personal history of cervical dysplasia; Z92.3 Personal history of irradiation; Z98.890 Other specified postprocedural states; Z80.0 Family history of malignant neoplasm of digestive organs; Z82.49 Family history of ischemic heart disease and other diseases of the circulatory system; Z81.8 Family history of other mental and behavioral disorders
CPT/HCPCS: 82075; 96361; 96365; 99285; 36415; 80053; 80048; 83735; 84100; 85025 ×2; 87077; 87186; 87635; G0378; J0696; 87086

== ENCOUNTER 2022-09-26 16:27 | Emergency (ER) | payer MEDICARE, BC ==
[2022-09-26] MEDS ORDERED: SODIUM CHLORIDE 0.9% 1,000 ML IV STA (19:26)
[2022-09-26 20:08] LABS: Basophils % (A) 1 %; Eosinophils # (A) 0.1 k/uL (0-0.7); Eosinophils % (A) 1 %; HCT 35.5 % (34.0-46.0); HGB 11.8 gm/dL (11.4-16.0); Lymphocytes # (A) 2.4 k/uL (1.0-4.8); Lymphocytes % (A) 26 %; MCH 29.2 pg (25.0-35.0); MCHC 33.3 g/dL (31.0-37.0); MCV 87.9 fL (80.0-100.0); Mean Platelet Volume 7.5; Monocytes # (A) 0.5 k/uL (0-1.0); Monocytes % (A) 5 %; Neutrophils # (A) 6.1 k/uL (1.3-7.7); Neutrophils % (A) 66 %; Platelet Count 364 k/uL (150-450); RBC 4.04 m/uL (3.80-5.40); RDW 12.7 % (11.5-15.5); WBC 9.2 k/uL (3.8-10.6)
--- NOTE | 2022-09-26 20:14 | XR ---
EXAMINATION TYPE: XR pelvis AP view DATE OF EXAM: 09/26/2022 COMPARISON: None HISTORY: Fall, pain TECHNIQUE: AP pelvis FINDINGS: Left femoral hip pin is present. Femoral heads articulate with the acetabulum. Symphysis pu bis and sacroiliac joints are normal. Normal bowel gas is present. IMPRESSION: 1. No acute osseous abnormalities AP pelvis. Follow-up can be performed as clinically indicated
--- NOTE | 2022-09-26 20:15 | XR ---
EXAMINATION TYPE: XR chest 1V portable DATE OF EXAM: 09/26/2022 COMPARISON: 05/31/2021 INDICATION: Fall, pain TECHNIQUE: Single frontal view of the chest is obtained. FINDINGS: The heart size is normal. The pulmonary vasculature is normal. The lungs are clear. No pneumothorax is evident. Postsurgical breast changes are within the right breast. Axillary surgica l clips are noted. IMPRESSION: 1. No acute pulmonary process. 2. No acute posttraumatic change is evident.
--- NOTE | 2022-09-26 20:17 | XR ---
EXAMINATION TYPE: XR forearm LT DATE OF EXAM: 09/26/2022 COMPARISON: None HISTORY: Fall TECHNIQUE: 2 view left forearm FINDINGS: Radius and ulna appear intact. No acute fractures or dislocations. Soft tissues are normal. Catheter is present at the antecubital fossa. Degenerative joint changes are at the wrist. IMPRESSION: 1. No acute osseous abnormality left forearm
[2022-09-26 20:21] LABS: Partial Thromboplastin Time 28.1 sec (22.0-30.0); Prothrombin Time 10.2 sec (9.0-12.0)
[2022-09-26 20:34] LABS: African American GFR (CKD) >90 (>60 ml/min/1.73 sqM); Alcohol <10 mg/dL; Anion Gap 8 mmol/L; Blood Urea Nitrogen 19 mg/dL (7-17); Carbon Dioxide 29 mmol/L (22-30); Chloride 101 mmol/L (98-107); Glucose 101 mg/dL (74-99); Non-African American GFR(CKD) 90 (>60 ml/min/1.73 sqM); Potassium 3.3 mmol/L (3.5-5.1); Sodium 138 mmol/L (137-145)
[2022-09-26 20:56] LABS: Appearance,Urine Turbid (Clear); Bacteria,Urine Moderate /hpf; Bilirubin,Urine Negative (Negative); Blood,Urine Negative (Negative); Glucose,Urine (UA) Negative (Negative); Ketones,Urine Negative (Negative); Leukocyte Esterase,Urine Large (Negative); Mucus,Urine Many /hpf; Nitrite,Urine Negative (Negative); PH, Urine 6.5 (5.0-8.0); Protein,Urine 1+ (Negative); Specific Gravity,Urine 1.028 (1.001-1.035); WBC,Urine 9 /hpf (0-5)
[2022-09-26 21:01] LABS: Color,Urine Amber
--- NOTE | 2022-09-26 22:03 | CT ---
EXAMINATION TYPE: CT brain mary rico con DATE OF EXAM: 09/26/2022 COMPARISON: None HISTORY: fall CT DLP: 1065.3 mGycm, Automated exposure control for dose reduction was used. CONTRAST: Patient injected with 0 mL of Isovue 300. CT of the brain is performed utilizing 3 mm thick sections through the posterior fossa and 3 mm thick sections through the remaining calvarium. Study is performed within 24 hours of arrival to the hospital. No abnormal hyperdensity is present to suggest an acute intracranial hemorrhage. No mass lesion is evident. No acute infarcts are evident. Ventricles and sulci are appropriate for the patient age. Paranasal sinuses and mastoid air cells within the [id number] are clear. IMPRESSIONS: 1. No acute intracranial process. CT cervical spine. COMPARISON: None CT of the cervical spine is performed in the axial plane at 2 mm thick sections. Reconstructed image s in the coronal, and sagittal plane are reviewed on the computer. No acute fractures are evident. Vertebral body alignment is normal. There is loss of disc height through the cervical spine greatest at the C5-6 level. Anterior vertebra l body spurring is present C5-T2. Vertebral body heights are preserved. No spinal canal stenosis is evident. There is some foraminal narrowing due to uncovertebral joint hypertrophy at the C4-5 level bilaterall y. Severe right foraminal stenosis from uncovertebral joint hypertrophy is present C5-6. IMPRESSIONS: 1. Degenerative disc changes mid to lower cervical spine. 2. Uncovertebral joint hypertrophy with severe right foraminal stenosis C5-6. 3. No acute osseous abnormality cervical spine
--- NOTE | 2022-09-26 22:26 | CT ---
EXAMINATION TYPE: CT facial bones wo con DATE OF EXAM: 09/26/2022 COMPARISON: None HISTORY: fall CT DLP: 1065.3 mGycm CONTRAST: 0 mL of Isovue 300 The paranasal sinuses are examined in the axial plane at 2 mm thick sections. Reconstructed images i n the coronal plane were obtained. There is mild dental amalgam scatter artifact. Maxillary spine is intact. Nasal bone fractures presen t on the right. Series 212 image 64 There is partial septation of the lateral right maxillary sinus. Mucosal thickening is within the rig ht maxillary sinus. Left frontal sinus is aplastic. The ethmoid air cells are clear. The sphenoid s inuses are clear. The right frontal sinuses are clear. Mastoid air cells are clear. The septum is evaluated. There is septal deviation to the left. The ostiomeatal units are patent. Right Yaya air cells are present. IMPRESSIONS: 1. Fracture right nasal bone. 2. Changes of chronic right maxillary sinusitis. 3. Left septal deviation
[2022-09-26] MEDS ORDERED: cefTRIAXone IN SWFI 1,000 MG/10 ML SYRINGE IVP STA (22:54)
--- NOTE | 2022-09-26 22:54 | ED ---
General Adult HPI - General Source: patient, family, RN notes reviewed, old records reviewed Mode of arrival: wheelchair Limitations: no limitations <Paulino Joshi - Last Filed: 09/26/22 23:39> <Bharat Arreola - Last Filed: 09/27/22 03:11> - General Chief complaint: Psychiatric Symptoms Stated complaint: Depression Time Seen by Provider: 09/26/22 19:03 - History of Present Illness Initial comments: Patient is a 71-year-old female who presents with her friend who she lives with for psychiatric evaluation as well as evaluation for possible UTI. Patient has been having increased depression and anxiety for the last 1-2 weeks and has been intermittently compliant with medications. She is also been what the patient's friend describes as "confused" where she will get up and try to leave. Patient is aware that she is tender to this but doesn't know where she is planning ago. Denies any suicidal or homicidal ideations, attempts, plans. Denies any hallucinations. He is uncertain if she is taking her medications. Has no other acute complaints at this time. They do endorse multiple falls over the last few months landing on her face as well as her arm. His bruising over her face, arm, and body at various stages of healing. She would like to leave. However she is cooperative. Is not altered. His no other acute complaints at this time. Presents for further evaluation. (Paulino Joshi) - Related Data Home Medications Medication Instructions Recorded Confirmed OLANZapine [ZyPREXA] 10 mg PO BID 08/20/22 09/26/22 Sertraline [Zoloft] 100 mg PO DAILY 08/20/22 09/26/22 diphenhydrAMINE [Benadryl] 25 mg PO DAILY PRN 09/26/22 09/26/22 Previous Rx's Medication Instructions Recorded Sulfamethox-Tmp 800-160Mg [Bactrim 1 tab PO Q12HR 7 Days #14 tab 09/26/22 DS 800-160 mg] Allergies Allergy/AdvReac Type Severity Reaction Status Date / Time No Known Allergies Allergy Verified 09/26/22 19:58 Review of Systems ROS Other: All systems not noted in ROS Statement are negative. <Paulino Joshi - Last Filed: 09/26/22 23:39> ROS Other: All systems not noted in ROS Statement are negative. <Bharat Arreola - Last Filed: 09/27/22 03:11> ROS Statement: Those systems with pertinent positive or pertinent negative responses have been documented in the HPI. Review of Systems: CONST: Denies fever EYES: Denies blurry vision ENT: Denies nasal congestion C/V: Denies Chest pain RESP: Denies shortness of breath GI: Denies abdominal pain : Denies dysuria SKIN: Endorses bruising from multiple falls MSK: Denies joint pain. NEURO: Denies headache PSYCH: Denies suicidal and homicidal ideations/plans/attempts. Denies visual or auditory hallucinations. (Paulino oJshi) Past Medical History Past Medical History: Cancer, Eye Disorder, GERD/Reflux, Hyperlipidemia, Hypertension, Pneumonia Additional Past Medical History / Comment(s): R breast cancer with lumpectomy and radiation 2016, osteopenia, vertigo at times, dry eyes rosie aterally,hypotensive episode 01/22/19. 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 Cervical dysplasia 1988. History of Any Multi-Drug Resistant Organisms: MRSA Date of last positivie culture/infection: 04/12/22 MDRO Source:: Urine Past Surgical History: Breast Surgery, Tonsillectomy Additional Past Surgical History / Comment(s): 1989 R breast excisional biopsy, benign cyst removed from R breast, 2016 R breast lumpectomy, D&C, cervical conization 1988, colonoscopy 2001. Past Anesthesia/Blood Transfusion Reactions: No Reported Reaction Additional Past Anesthesia/Blood Transfusion Reaction / Comment(s): "Sensitivity to anesthesia" Past Psychological History: Anxiety, Depression Smoking Status: Never smoker Past Alcohol Use History: Occasional - Past Family History Father Family Medical History: Cancer Additional Family Medical History / Comment(s): Father at age 74 from colon cancer. Mother Family Medical History: Deep Vein Thrombosis (DVT) Additional Family Medical History / Comment(s): . Brother(s) Additional Family Medical History / Comment(s): Patient has 1 brother with no major medical problems. Patient does not have any sisters. Patient has 1 son. <Paulino Joshi - Last Filed: 09/26/22 23:39> General Exam Limitations: no limitations <Paulino Joshi - Last Filed: 09/26/22 23:39> - General Exam Comments Initial Comments: General: Appears in no acute distress. HEAD: Yellow bruising located over the patient's face. No tenderness to palpation over the nasal bone or sinuses. No tenderness to palpation over the jaw. Negative Terry sign. Negative raccoon eyes. EYES: PERRLA, EOMI, conjunctiva normal, no discharge. Pupils are 2-3 mm and equal bilaterally. ENT: Hearing grossly intact, normal oropharynx. RESPIRATORY: Clear breath sounds bilaterally. No wheezes, rales, or rhonchi. C/V: Regular rate and rhythm. S1 and S2 auscultated, no edema, peripheral pulses 2+ and intact throughout ABD: Abd is soft, nontender, nondistended EXT: Normal range of motion, no obvious deformity. No tenderness to palpation over the extremities. No tenderness to palpation over the midline cervical, thoracic, lumbar spines. Pelvis stable. SKIN: Bruising over the left arm, as well as the face at various stages of healing. NEURO: Alert and oriented x 4. Cranial nerves II-XII intact. No focal sensory or strength deficits. GCS of 15. NIH of 0. (Paulino Joshi) Course Vital Signs 09/26/22 09/26/22 09/27/22 17:07 23:39 01:00 Temperature 98.1 F Pulse Rate 98 94 Respiratory 20 17 17 Rate Blood Pressure 94/94 129/77 O2 Sat by Pulse 99 98 Oximetry Medical Decision Making - Lab Data Result diagrams: 09/26/22 19:43 09/26/22 19:43 - EKG Data -: EKG Interpreted by Mn <Paulino Joshi - Last Filed: 09/26/22 23:39> - Lab Data Result diagrams: 09/26/22 19:43 09/26/22 19:43 <Bharat Arreola - Last Filed: 09/27/22 03:11> - Medical Decision Making Was pt. sent in by a medical professional or institution (, PA, CHANGE MANAGEMENT LEAD, urgent care, hospital, or fci...) When possible be specific @ -No Did you speak to anyone other than the patient for history (EMS, parent, family, police, friend...)? What history was obtained from this source @ -Patient's friend who lives with the patient and assist with history including the patient's intermittent episodes of trying to leave without knowing where she is going. Did you review nursing and triage notes (agree or disagree)? Why? @ -I reviewed and agree with nursing and triage notes Were old charts reviewed (outside hosp., previous admission, EMS record, old EKG, old radiological studies, urgent care reports/EKG's, fci records)? Report findings @ -Old charts reviewed from February 2022 including EKG Differential Diagnosis (chest pain, altered mental status, abdominal pain women, abdominal pain men, vaginal bleeding, weakness, fever, dyspnea, syncope, headache, dizziness, GI bleed, back pain, seizure, CVA, palpatations, mental health, musculoskeletal)? @ -Differential Altered Mental Status: Hypoglycemia, DKA, hypercapnia, ETOH, overdose, CO poisoning, trauma, myxedema coma, HTN encephalopathy, infection, encephalitis, psychosis, intercranial hemorrhage, hepatic encephalopathy, meningitis, CVA, this is not meant to be an all-inclusive list Differential Mental Health Depression, anxiety, bipolar, psychosis, schizophrenia, borderline personality, situational depression, adjustment disorder, behavioral disorder, brain tumor, malingering, substance abuse, encephalopathy, medication reaction, dementia, hypothyroidism, degenerative neurologic disorder, lupus.... This is not meant to be all-inclusive list EKG interpreted by me (3pts min.). @ -As above X-rays interpreted by me (1pt min.). @ -X-rays showed no obvious traumatic injuries CT interpreted by me (1pt min.). @ -CT imaging of the brain, C-spine negative for any obvious traumatic injury. Facial CT shows a right nasal bone fracture. U/S interpreted by me (1pt. min.). @ -None done What testing was considered but not performed or refused? (CT, X-rays, U/S, labs)? Why? @ -None What meds were considered but not given or refused? Why? @ -None Did you discuss the management of the patient with other professionals (professionals i.e. , PA, CHANGE MANAGEMENT LEAD, lab, RT, psych nurse, elementary school social worker, event marketing assistant, teacher, mortgage loan officer originator, caser)? Give summary @ -No Was smoking cessation discussed for >3mins.? @ -No Was critical care preformed (if so, how long)? @ -No Were there social determinants of health that impacted care today? How? (Homelessness, low income, unemployed, alcoholism, drug addiction, transportation, low edu. Level, literacy, decrease access to med. care, care home, rehab)? @ -No Was there de-escalation of care discussed even if they declined (Discuss DNR or withdrawal of care, Hospice)? DNR status @ -No What co-morbidities impacted this encounter? (DM, HTN, Smoking, COPD, CAD, Cancer, CVA, ARF, Chemo, Hep., AIDS, mental health diagnosis, sleep apnea, mo rbid obesity)? @ -None Was patient admitted / discharged? Hospital course, mention meds given and route, prescriptions, significant lab abnormalities, going to OR and other pertinent info. @ -Based on the patient's presentation and physical exam, she presents for psychiatric evaluation but also has been having some episodes of what roommate describes as confusion. She has been having increased urination and they're concerned for possible UTI. She has been falling frequently as well which is chronic for the patient. We will obtain altered mental status workup however patient currently is not altered. She does not want to be here but she is willing to stay for psychiatric evaluation and medication review,concerned she is not taking her medications. She was placed in green scrubs. We will obtain CT imaging of the brain, face as well as plain film x-rays of the left arm, chest, pelvis. She was in agreement this plan. Vital signs are within acceptable limits. Imaging remarkable for nasal bone fracture but no other obvious injury. Patient's labs are remarkable for UTI but no other obvious abnormalities. Slight hypokalemia which is replenished. Alcohol level is 0. On reevaluation, I updated patient as well as friend. She is cleared for psychiatric evaluation. Patient's CT and will be given Rocephin and I will send a prescription to her pharmacy for Bactrim. They were in agreement with this plan. Patient is already in green scrubs. Patient is medically cleared. EPS was notified consult. Undiagnosed new problem with uncertain prognosis? @ -No Drug Therapy requiring intensive monitoring for toxicity (Heparin, Nitro, Insulin, Cardizem)? @ -No Were any procedures done? @ -No Diagnosis/symptom? @ -UTI, encounter for psychiatric evaluation, falls with contusions, nasal bone fracture Acute, or Chronic, or Acute on Chronic? @ -Acute on chronic Uncomplicated (without systemic symptoms) or Complicated (systemic symptoms)? @ -Complicated Side effects of treatment? @ -No Exacerbation, Progression, or Severe Exacerbation? @ -No Poses a threat to life or bodily function? How? (Chest pain, USA, UT, pneumonia, PE, COPD, DKA, ARF, appy, cholecystitis, CVA, Diverticulitis, Homicidal, Suic idal, threat to staff... and all critical care pts) @ -No (Paulino Joshi) The patient was signed out to me from Dr. Joshi pending evaluation by EPS. EPS did evaluate the patient and stated that the patient did not meet any inpatient criteria and that she continued to deny any auditory or visual hallucination as well as any suicidal or homicidal ideation. The patient was well-known to the EPS service and stated that she was at her baseline. A safety plan was created with the patient and she was agreeable to being discharged home. The patient likely had a UTI causing intermittent symptoms however the patient was ANO 4 and able to agree with the EPS safety plan. I did evaluate the patient and agreed with this plan. The patient was discharged home in stable condition. (Bharat Arreola) - Lab Data Lab Results 09/26/22 09/26/22 09/26/22 Range/Units 19:43 19:43 19:43 WBC 9.2 (3.8-10.6) k/uL RBC 4.04 (3.80-5.40) m/uL Hgb 11.8 (11.4-16.0) gm/dL Hct 35.5 (34.0-46.0) % MCV 87.9 (80.0-100.0) fL MCH 29.2 (25.0-35.0) pg MCHC 33.3 (31.0-37.0) g/dL RDW 12.7 (11.5-15.5) % Plt Count 364 (150-450) k/uL MPV 7.5 Neutrophils % 66 % Lymphocytes % 26 % Monocytes % 5 % Eosinophils % 1 % Basophils % 1 % Neutrophils # 6.1 (1.3-7.7) k/uL Lymphocytes # 2.4 (1.0-4.8) k/uL Monocytes # 0.5 (0-1.0) k/uL Eosinophils # 0.1 (0-0.7) k/uL Basophils # 0.0 (0-0.2) k/uL PT 10.2 (9.0-12.0) sec INR 1.0 (<1.2) APTT 28.1 (22.0-30.0) sec Sodium (137-145) mmol/L Potassium (3.5-5.1) mmol/L Chloride (98-107) mmol/L Carbon Dioxide (22-30) mmol/L Anion Gap mmol/L BUN (7-17) mg/dL Creatinine (0.52-1.04) mg/dL Est GFR (CKD-EPI)AfAm (>60 ml/min/1.73 sqM) Est GFR (CKD-EPI)NonAf (>60 ml/min/1.73 sqM) Glucose (74-99) mg/dL Calcium (8.4-10.2) mg/dL Urine Color Urine Appearance (Clear) Urine pH (5.0-8.0) Ur Specific [place] (1.001-1.035) Urine Protein (Negative) Urine Glucose (UA) (Negative) Urine Ketones (Negative) Urine Blood (Negative) Urine Nitrite (Negative) Urine Bilirubin (Negative) Urine Urobilinogen (<2.0) mg/dL Ur Leukocyte Esterase (Negative) Urine WBC (0-5) /hpf Urine Bacteria (None) /hpf Urine Mucus (None) /hpf Urine Opiates Screen Not Detected (NotDetected) Ur Oxycodone Screen Not Detected (NotDetected) Urine Methadone Screen Not Detected (NotDetected) Ur Propoxyphene Screen Not Detected (NotDetected) Ur Barbiturates Screen Not Detected (NotDetected) U Tricyclic Antidepress Not Detected (NotDetected) Ur Phencyclidine Scrn Not Detected (NotDetected) Ur Amphetamines Screen Not Detected (NotDetected) U Methamphetamines Scrn Not Detected (NotDetected) U Benzodiazepines Scrn Not Detected (NotDetected) Urine Cocaine Screen Not Detected (NotDetected) U Marijuana (THC) Screen Not Detected (NotDetected) Serum Alcohol mg/dL Influenza Type A (PCR) (Not Detectd) Influenza Type B (PCR) (Not Detectd) RSV (PCR) (Not Detectd) SARS-CoV-2 (PCR) (Not Detectd) 09/26/22 09/26/2209/26/23 Range/Units 19:43 19:43 19:43 WBC (3.8-10.6) k/uL RBC (3.80-5.40) m/uL Hgb (11.4-16.0) gm/dL Hct (34.0-46.0) % MCV (80.0-100.0) fL MCH (25.0-35.0) pg MCHC (31.0-37.0) g/dL RDW (11.5-15.5) % Plt Count (150-450) k/uL MPV Neutrophils % % Lymphocytes % % Monocytes % % Eosinophils % % Basophils % % Neutrophils # (1.3-7.7) k/uL Lymphocytes # (1.0-4.8) k/uL Monocytes # (0-1.0) k/uL Eosinophils # (0-0.7) k/uL Basophils # (0-0.2) k/uL PT (9.0-12.0) sec INR (<1.2) APTT (22.0-30.0) sec Sodium 138 (137-145) mmol/L Potassium 3.3 L (3.5-5.1) mmol/L Chloride 101 (98-107) mmol/L Carbon Dioxide 29 (22-30) mmol/L Anion Gap 8 mmol/L BUN 19 H (7-17) mg/dL Creatinine 0.67 (0.52-1.04) mg/dL Est GFR (CKD-EPI)AfAm >90 (>60 ml/min/1.73 sqM) Est GFR (CKD-EPI)NonAf 90 (>60 ml/min/1.73 sqM) Glucose 101 H (74-99) mg/dL Calcium 9.0 (8.4-10.2) mg/dL Urine Color Su Urine Appearance Turbid H (Clear) Urine pH 6.5 (5.0-8.0) Ur Specific [place] 1.028 (1.001-1.035) Urine Protein 1+ H (Negative) Urine Glucose (UA) Negative (Negative) Urine Ketones Negative (Negative) Urine Blood Negative (Negative) Urine Nitrite Negative (Negative) Urine Bilirubin Negative (Negative) Urine Urobilinogen 2.0 (<2.0) mg/dL Ur Leukocyte Esterase Large H (Negative) Urine WBC 9 H (0-5) /hpf Urine Bacteria Moderate H (None) /hpf Urine Mucus Many H (None) /hpf Urine Opiates Screen (NotDetected) Ur Oxycodone Screen (NotDetected) Urine Methadone Screen (NotDetected) Ur Propoxyphene Screen (NotDetected) Ur Barbiturates Screen (NotDetected) U Tricyclic Antidepress (NotDetected) Ur Phencyclidine Scrn (NotDetected) Ur Amphetamines Screen (NotDetected) U Methamphetamines Scrn (NotDetected) U Benzodiazepines Scrn (NotDetected) Urine Cocaine Screen (NotDetected) U Marijuana (THC) Screen (NotDetected) Serum Alcohol <10 mg/dL Influenza Type A (PCR) Not Detected (Not Detectd) Influenza Type B (PCR) Not Detected (Not Detectd) RSV (PCR) Not Detected (Not Detectd) SARS-CoV-2 (PCR) Not Detected (Not Detectd) - EKG Data EKG Comments: 12-lead Electrocardiogram Interpretation Note EKG was reviewed and interpreted by myself. 12-lead ECG performed at 1936 is interpreted by me as revealing normal sinus rhythm at a rate of 72 beats per minute. [place] is normal. IL interval is 185 ms, QRS duration is 75 ms, QTc is 454 ms. Patient has chronic diffuse T-wave inversions in leads 2, 3, aVF as well as the precordial leads V2 through V6. This is seen on prior EKGs from February 2022 as well as somewhat from May 2021. There were no acute ST or T wave abnormalities to suggest myocardial ischemia or injury. R wave progression across the precordium was satisfactory. By my interpretation this EKG is non- diagnostic for acute ischemia. (Paulino Joshi) Disposition <Paulino Joshi - Last Filed: 09/26/22 23:39> Is patient prescribed a controlled substance at d/c from ED?: No Time of Disposition: 02:30 <Bharat Arreola - Last Filed: 09/27/22 03:11> Clinical Impression: UTI (urinary tract infection), Nasal bone fracture, Multiple contusions, Encounter for psychiatric assessment Disposition: HOME SELF-CARE Condition: Stable Instructions (If sedation given, give patient instructions): Nasal Fracture (ED), Urinary Tract Infection in Women (DC) Prescriptions: Sulfamethox-Tmp 800-160Mg [Bactrim DS 800-160 mg] 1 tab PO Q12HR 7 Days #14 tab Referrals: Gamaliel Castañeda DO [Primary Care Provider] - 1-2 days Newton Kilpatrick DO [Doctor of Osteopathic Medicine] - 1-2 days
[2022-09-26 23:06] LABS: Amphetamine Screen,Urine Not Detected (NotDetected); Barbiturate Screen,Urine Not Detected (NotDetected); Benzodiazepines Screen,Urine Not Detected (NotDetected); Cocaine Screen,Urine Not Detected (NotDetected); Methadone Screen, Urine Not Detected (NotDetected); Opiate Screen,Urine Not Detected (NotDetected); Oxycodone Screen, Urine Not Detected (NotDetected); Phencyclidine Screen,Urine Not Detected (NotDetected); Tricyclic Antidepressant,Urine Not Detected (NotDetected); Urn Cannabinoid Scrn Not Detected (NotDetected)
[2022-09-26] MEDS ORDERED: POTASSIUM CHLORIDE ER 20 MEQ TAB.ER PO STA (23:28)
[2022-09-27 10:35] VITALS: BP 167/80; PULSE 87; RESP 18; TEMP 97.7
== END 2022-09-27 10:35 | disposition home or self-care (01) ==
LOC: EC 16:27
DX: Z00.8 Encounter for other general examination (principal); S02.2XXA Fracture of nasal bones, initial encounter for closed fracture; N39.0 Urinary tract infection, site not specified; J32.0 Chronic maxillary sinusitis; J34.2 Deviated nasal septum; I10 Essential (primary) hypertension; F41.9 Anxiety disorder, unspecified; F32.A Depression, unspecified; Z79.899 Other long term (current) drug therapy; Z20.822 Contact with and (suspected) exposure to COVID-19; W19.XXXA Unspecified fall, initial encounter
CPT/HCPCS: 36415; 93005; 80048; 85025; 85610; 85730; 81001; 80306; 87086; 87636; 72170; 73090; 71045; 72125; 70486; 70450; 99285; 96374; 96361 ×3; G0480; J0696; 80320

== ENCOUNTER 2022-09-28 16:35 | Emergency (ER) | payer MEDICARE, BC ==
[2022-09-28] MEDS ORDERED: SODIUM CHLORIDE 0.9% 1,000 ML IV STA (17:22)
--- NOTE | 2022-09-28 17:23 | ED ---
Weakness HPI - General Chief complaint: Weakness Stated complaint: Fall Time Seen by Provider: 09/28/22 17:22 Source: patient, EMS, RN notes reviewed, old records reviewed Mode of arrival: EMS - History of Present Illness Initial comments: This is a 71-year-old female who presents here today for evaluation of weakness multiple falls. On placement into the room patient refuses any testing refusing to present history of present illness and wants to be discharged home MD Complaint: generalized weakness, lack of energy, difficulty walking (Multiple falls) -: unknown Location: generalized Improves with: none Worsens with: none Context: history of similar Associated Symptoms: denies other symptoms - Related Data Home Medications Medication Instructions Recorded Confirmed OLANZapine [ZyPREXA] 10 mg PO BID 08/20/22 09/26/22 Sertraline [Zoloft] 100 mg PO DAILY 08/20/22 09/26/22 diphenhydrAMINE [Benadryl] 25 mg PO DAILY PRN 09/26/22 09/26/22 Previous Rx's Medication Instructions Recorded Sulfamethox-Tmp 800-160Mg [Bactrim 1 tab PO Q12HR 7 Days #14 tab 09/26/22 DS 800-160 mg] Allergies Allergy/AdvReac Type Severity Reaction Status Date / Time No Known Allergies Allergy Verified 09/26/22 19:58 Review of Systems ROS Statement: Those systems with pertinent positive or pertinent negative responses have been documented in the HPI. ROS Other: All systems not noted in ROS Statement are negative. Past Medical History Past Medical History: Cancer, Eye Disorder, GERD/Reflux, Hyperlipidemia, Hypertension, Pneumonia Additional Past Medical History / Comment(s): R breast cancer with lumpectomy and radiation 2016, osteopenia, vertigo at times, dry eyes bilaterally,hypotensive episode 01/22/19. 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 Cervical dysplasia 1988. History of Any Multi-Drug Resistant Organisms: MRSA Date of last positivie culture/infection: 04/12/22 MDRO Source:: Urine Past Surgical History: Breast Surgery, Tonsillectomy Additional Past Surgical History / Comment(s): 1989 R breast excisional biopsy, benign cyst removed from R breast, 2017 R breast lumpectomy, D&C, cervical conization 1988, colonoscopy 2001. Past Anesthesia/Blood Transfusion Reactions: No Reported Reaction Additional Past Anesthesia/Blood Transfusion Reaction / Comment(s): "Sensitivity to anesthesia" Past Psychological History: Anxiety, Depression Smoking Status: Never smoker Past Alcohol Use History: Occasional - Past Family History Father Family Medical History: Cancer Additional Family Medical History / Comment(s): Father at age 74 from colon cancer. Mother Family Medical History: Deep Vein Thrombosis (DVT) Additional Family Medical History / Comment(s): . Brother(s) Additional Family Medical History / Comment(s): Patient has 1 brother with no major medical problems. Patient does not have any sisters. Patient has 1 son. General Exam General appearance: alert, in no apparent distress Head exam: Present: atraumatic, normocephalic, normal inspection Eye exam: Present: normal appearance, PERRL, EOMI. Absent: scleral icterus, conjunctival injection, periorbital swelling ENT exam: Present: normal exam, mucous membranes moist Neck exam: Present: normal inspection. Absent: tenderness, meningismus, lymphadenopathy Respiratory exam: Present: normal lung sounds bilaterally. Absent: respiratory distress, wheezes, rales, rhonchi, stridor Cardiovascular Exam: Present: regular rate, normal rhythm, normal heart sounds. Absent: systolic murmur, diastolic murmur, rubs, gallop, clicks GI/Abdominal exam: Present: soft, normal bowel sounds. Absent: distended, tenderness, guarding, rebound, rigid Extremities exam: Present: normal inspection, full ROM, normal capillary refill. Absent: tenderness, pedal edema, joint swelling, calf tenderness Back exam: Present: normal inspection Neurological exam: Present: alert, oriented X3, CN II-XII intact Psychiatric exam: Present: normal affect, normal mood Skin exam: Present: warm, dry, intact, normal color. Absent: rash Course Vital Signs 09/28/22 09/28/22 16:36 18:19 Temperature 98.3 F 99.1 F Pulse Rate 83 87 Respiratory 17 18 Rate Blood Pressure 103/51 141/65 O2 Sat by Pulse 98 98 Oximetry - Reevaluation(s) Reevaluation #1: 09/28/22 23:38 Medical records reviewed Reevaluation #2: 09/28/22 23:38 Patient refusing further testing wants discharge Reevaluation #3: 09/28/22 23:38 Was pt. sent in by a medical professional or institution (MAGEN Mclean, MANAGER OF DEVELOPMENT, urgent care, hospital, or long term...) When possible be specific @ -no Did you speak to anyone other than the patient for history (EMS, parent, family, police, friend...)? What history was obtained from this source @ -no Did you review nursing and triage notes (agree or disagree)? Why? @ -agree Are old charts reviewed (outside hosp., previous admission, EMS record, old EKG, old radiological studies, urgent care reports/EKG's, long term records)? Report findings @ -yes Differential Diagnosis (chest pain, altered mental status, abdominal pain women, abdominal pain men, vaginal bleeding, weakness, fever, dyspnea, syncope, headache, dizziness, GI bleed, back pain, seizure, CVA, palpatations, mental health, musculoskeletal)? @ -prior EKG interpreted by me (3pts min.). @ -no X-rays interpreted by me (1pt min.). @ -no CT interpreted by me (1pt min.). @ -no U/S interpreted by me (1pt. min.). @ -no What testing was considered but not performed or refused? (CT, X-rays, U/S, labs)? Why? @ -none What meds were considered but not given or refused? Why? @ -none Did you discuss the management of the patient with other professionals (professionals i.e. MAGEN Mclean, MANAGER OF DEVELOPMENT, lab, RT, psych nurse, health and social care teacher, middle school special education teacher, teacher, chemistry technical officer, hospice case manager)? Give summary @ -no Was smoking cessation discussed for >3mins.? @ -no Was critical care preformed (if so, how long)? @ -no Were there social determinants of health that impacted care today? How? (Homelessness, low income, unemployed, alcoholism, drug addiction, transportation, low edu. Level, literacy, decrease access to med. care, nursing home, rehab)? @ -none Was there de-escalation of care discussed even if they declined (Discuss DNR or withdrawal of care, Hospice)? DNR status @ -no What co-morbidities impacted this encounter? (DM, HTN, Smoking, COPD, CAD, Cancer, CVA, ARF, Chemo, Hep., AIDS, mental health diagnosis, sleep apnea, morbid obesity)? @ -none Was patient admitted / discharged? Hospital course, mention meds given and route, prescriptions, significant lab abnormalities, going to OR and other pertinent info. @ - 71 female to the emergency department today for evaluation of why she swelling which she refuses testing or imaging. Patient just wants to go home at this time. Patient will be discharged home Discharge Undiagnosed new problem with uncertain prognosis? @ -no Drug Therapy requiring intensive monitoring for toxicity (Heparin, Nitro, Insulin, Cardizem)? @ -no Were any procedures done? @ -no Diagnosis/symptom? @ -Multiple falls Acute, or Chronic, or Acute on Chronic? @ -Acute Uncomplicated (without systemic symptoms) or Complicated (systemic symptoms)? @ -Complicated Side effects of treatment? @ -no Exacerbation, Progression, or Severe Exacerbation? @ -exacerbation Poses a threat to life or bodily function? How? (Chest pain, USA, [place], pneumonia, PE, COPD, DKA, ARF, appy, cholecystitis, CVA, Diverticulitis, Homicidal, Suicidal, threat to staff... and all critical care pts) @ -no Medical Decision Making - Medical Decision Making 71 female to the emergency department today for evaluation of why she swelling which she refuses testing or imaging. Patient just wants to go home at this time. Patient will be discharged home Disposition Clinical Impression: Fall, Generalized anxiety disorder, Weakness Disposition: HOME SELF-CARE Condition: Fair Instructions (If sedation given, give patient instructions): Fall Prevention for Older Adults (ED) Is patient prescribed a controlled substance at d/c from ED?: No Referrals: Gamaliel Castañeda DO [Primary Care Provider] - 1-2 days Time of Disposition: 17:30
[2022-09-28 18:21] VITALS: BP 141/65; PULSE 87; RESP 18; TEMP 99.1
== END 2022-09-28 18:23 | disposition home or self-care (01) ==
LOC: SUPCPDRO 16:35 → EC 16:35
DX: R53.1 Weakness (principal); F41.1 Generalized anxiety disorder; I10 Essential (primary) hypertension; F32.A Depression, unspecified; R29.6 Repeated falls; Z79.899 Other long term (current) drug therapy
CPT/HCPCS: 99285

== ENCOUNTER 2022-11-15 17:36 | Emergency (ER) | payer MEDICARE, BC ==
--- NOTE | 2022-11-15 18:58 | ED ---
Eye Problem HPI - General Chief complaint: Eye Problems Stated complaint: right eye blind spot Time Seen by Provider: 11/15/22 18:12 Source: patient Mode of arrival: ambulatory Limitations: no limitations - History of Present Illness Initial comments: 72-year-old female presenting to the ED with chief complaint of imaging. Per patient, approximately one month ago hit her head with positive LOC. Since then has developed intermittent difficulties with vision of her right eye and her pupil has been irregularly shaped. Per friend, has been acting more erratic than usual. Per patient and friend went to camp attendant today who advised her to present to the ED to obtain the CAT scan. Has ophthalmology follow-up tomorrow. Currently denies chest pain, shortness of breath, fever. No other complaints. MD chief complaint: eye pain - Related Data Home Medications Medication Instructions Recorded Confirmed OLANZapine [ZyPREXA] 10 mg PO BID 08/20/22 09/26/22 Sertraline [Zoloft] 100 mg PO DAILY 08/20/22 09/26/22 diphenhydrAMINE [Benadryl] 25 mg PO DAILY PRN 09/26/22 09/26/22 Previous Rx's Medication Instructions Recorded Sulfamethox-Tmp 800-160Mg [Bactrim 1 tab PO Q12HR 7 Days #14 tab 09/26/22 DS 800-160 mg] Allergies Allergy/AdvReac Type Severity Reaction Status Date / Time No Known Allergies Allergy Verified 11/15/22 17:53 Review of Systems ROS Statement: Those systems with pertinent positive or pertinent negative responses have been documented in the HPI. ROS Other: All systems not noted in ROS Statement are negative. Past Medical History Past Medical History: Cancer, Eye Disorder, GERD/Reflux, Hyperlipidemia, Hypertension, Pneumonia Additional Past Medical History / Comment(s): R breast cancer with lumpectomy and radiation 2016, osteopenia, vertigo at times, dry eyes bilaterally,hypotensive episode 01/22/19. 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 Cervical dysplasia 1988. History of Any Multi-Drug Resistant Organisms: MRSA Date of last positivie culture/infection: 04/12/22 MDRO Source:: Urine Past Surgical History: Breast Surgery, Tonsillectomy Additional Past Surgical History / Comment(s): 1989 R breast excisional biopsy, benign cyst removed from R breast, 2016 R breast lumpectomy, D&C, cervical conization 1988, colonoscopy 2001. Past Anesthesia/Blood Transfusion Reactions: No Reported Reaction Additional Past Anesthesia/Blood Transfusion Reaction / Comment(s): "Sensitivity to anesthesia" Past Psychological History: Anxiety, Depression Smoking Status: Never smoker Past Alcohol Use History: Occasional - Past Family History Father Family Medical History: Cancer Additional Family Medical History / Comment(s): Father at age 74 from colon cancer. Mother Family Medical History: Deep Vein Thrombosis (DVT) Additional Family Medical History / Comment(s): . Brother(s) Additional Family Medical History / Comment(s): Patient has 1 brother with no major medical problems. Patient does not have any sisters. Patient has 1 son. General Exam Limitations: no limitations General appearance: alert, in no apparent distress Eye exam: Present: other (Right pupil dilated with defect unreactive to light. Left pupil round reactive to light.) Respiratory exam: Present: normal lung sounds bilaterally Cardiovascular Exam: Present: regular rate, normal rhythm GI/Abdominal exam: Present: soft Neurological exam: Present: alert, oriented X3, CN II-XII intact, other (Finger to nose, rapid alternating hand movements, bsac-rt-doyc intact.) Course Vital Signs 11/15/22 17:53 Temperature 98.9 F Pulse Rate 99 Respiratory 20 Rate Blood Pressure 119/68 O2 Sat by Pulse 99 Oximetry Medical Decision Making - Medical Decision Making Was pt. sent in by a medical professional or institution (, PA, DETASSELER, urgent care, hospital, or snf...) When possible be specific @ -No Did you speak to anyone other than the patient for history (EMS, parent, family, police, friend...)? What history was obtained from this source @ -No Did you review nursing and triage notes (agree or disagree)? Why? @ -I reviewed and agree with nursing and triage notes Were old charts reviewed (outside hosp., previous admission, EMS record, old EKG, old radiological studies, urgent care reports/EKG's, snf records)? Report findings @ -No old charts were reviewed Differential Diagnosis (chest pain, altered mental status, abdominal pain women, abdominal pain men, vaginal bleeding, weakness, fever, dyspnea, syncope, headache, dizziness, GI bleed, back pain, seizure, CVA, palpatations, mental health, musculoskeletal)? @ -Differential Altered Mental Status: Hypoglycemia, DKA, hypercapnia, ETOH, overdose, CO poisoning, trauma, myxedema coma, HTN encephalopathy, infection, encephalitis, psychosis, intercranial hemorrhage, hepatic encephalopathy, meningitis, CVA, this is not meant to be an all-inclusive list EKG interpreted by me (3pts min.). @ -As above X-rays interpreted by me (1pt min.). @ -None done CT interpreted by me (1pt min.). @ -CT brain interpreted by me showing no acute process. U/S interpreted by me (1pt. min.). @ -None done What testing was considered but not performed or refused? (CT, X-rays, U/S, labs)? Why? @ -None What meds were considered but not given or refused? Why? @ -None Did you discuss the management of the patient with other professionals (professionals i.e. , PA, DETASSELER, lab, RT, psych nurse, social service manager, cert occupational therapy asst, teacher, commercial loan officer, case liner)? Give summary @ -No Was smoking cessation discussed for >3mins.? @ -No Was critical care preformed (if so, how long)? @ -No Were there social determinants of health that impacted care today? How? (Homelessness, low income, unemployed, alcoholism, drug addiction, transportation, low edu. Level, literacy, decrease access to med. care, shelter, rehab)? @ -No Was there de-escalation of care discussed even if they declined (Discuss DNR or withdrawal of care, Hospice)? DNR status @ -No What co-morbidities impacted this encounter? (DM, HTN, Smoking, COPD, CAD, Cancer, CVA, ARF, Chemo, Hep., AIDS, mental health diagnosis, sleep apnea, morbid obesity)? @ -None Was patient admitted / discharged? Hospital course, mention meds given and route, prescriptions, significant lab abnormalities, going to OR and other pertinent info. @ -Discharge 72-year-old female with a history of head injury approximately a month ago and developing intermittent blurred vision and pupil defect since. Saw ophthalmology today who advised to present to the ED for further evaluation. CT brain showed no acute process. Neuro exam at this time otherwise unremarkable. Patient notes that she does have ophthalmology follow-up tomorrow. Patient discharged home in stable condition. Advised follow-up with ophthalmology and PCP. Discussed return precautions with patient verbalizes agreement. Undiagnosed new problem with uncertain prognosis? @ -No Drug Therapy requiring intensive monitoring for toxicity (Heparin, Nitro, Insulin, Cardizem)? @ -No Were any procedures done? @ -No Diagnosis/symptom? @ -Anisocoria Acute, or Chronic, or Acute on Chronic? @ -Acute on chronic Uncomplicated (without systemic symptoms) or Complicated (systemic symptoms)? @ -Uncomplicaed Side effects of treatment? @ -No Exacerbation, Progression, or Severe Exacerbation? @ -No Poses a threat to life or bodily function? How? (Chest pain, USA, [place], pneumonia, PE, COPD, DKA, ARF, appy, cholecystitis, CVA, Diverticulitis, Homicidal, Suicidal, threat to staff... and all critical care pts) @ -No Disposition Clinical Impression: Anisocoria Disposition: HOME SELF-CARE Condition: Good Additional Instructions: Please return to the Emergency Department if symptoms worsen or any other concerns. Please follow up with ophthalmology as scheduled. Please follow up with your PCP. Is patient prescribed a controlled substance at d/c from ED?: No Referrals: Gamaliel Castañeda DO [Primary Care Provider] - 1-2 days Time of Disposition: 20:43
--- NOTE | 2022-11-15 20:16 | CT ---
EXAMINATION TYPE: CT brain cspine wo con DATE OF EXAM: 11/15/2022 COMPARISON: 09/26/2022 HISTORY: falls, ams CT DLP: 1873.1 mGycm. Automated Exposure Control for Dose Reduction was Utilized. TECHNIQUE: CT scan of the head and cervical spine are performed without contrast. FINDINGS: There is no acute intracranial hemorrhage, mass effect, or midline shift identified. The v entricles and sulci are within normal limits in size. The globes are intact and the visualized sinuse s are clear. Cervical spine is visualized in its entirety from C1 through upper thoracic levels and demonstrates s atisfactory alignment without evidence of acute fracture or dislocation. Prevertebral soft tissue ap pears within normal limits. The C1-C2 articulation is unremarkable. Moderate to moderate marked mult ilevel cervical spondylosis changes noted. IMPRESSION: 1. There is no acute fracture or dislocation evident in the cervical spine. 2. No acute intracranial hemorrhage, mass effect, or midline shift is seen.
[2022-11-15 21:03] VITALS: BP 125/75; PULSE 84; RESP 18; TEMP 98.1
== END 2022-11-15 20:58 | disposition home or self-care (01) ==
LOC: SUPCPDRO 17:36 → EC 17:36
DX: H57.02 Anisocoria (principal); I10 Essential (primary) hypertension; F32.A Depression, unspecified; F41.9 Anxiety disorder, unspecified; Z79.899 Other long term (current) drug therapy
CPT/HCPCS: 70450; 72125; 99283

== ENCOUNTER → 2023-08-23 | Outpatient (CLI) | payer MEDICARE, BC ==
[2023-08-23 13:24] LABS: Partial Thromboplastin Time 24.3 sec (22.0-30.0); Prothrombin Time 10.6 sec (10.0-12.5)
[2023-08-23 15:34] LABS: ALT 8 U/L (8-44); AST 18 U/L (13-35); Albumin 4.8 g/dL (3.8-4.9); Albumin/Globulin Ratio 1.78 Ratio (1.60-3.17); Alkaline Phosphatase 106 U/L (41-126); BUN/Creat Ratio 25.62 Ratio (12.00-20.00); Blood Urea Nitrogen 20.5 mg/dL (9.0-27.0); Calcium 10.5 mg/dL (8.7-10.3); Carbon Dioxide 23.8 mmol/L (21.6-31.8); Chloride 101 mmol/L (96-109); Globulin 2.7 g/dL (1.6-3.3); Glucose 119 mg/dL (70-110); Potassium 3.7 mmol/L (3.5-5.5); Sodium 143 mmol/L (135-145); Total Bilirubin 0.3 mg/dL (0.3-1.2); Total Protein 7.5 g/dL (6.2-8.2)
[2023-08-23 15:57] LABS: HCT 45.5 % (37.2-46.3); HGB 14.6 g/dL (12.0-15.0); MCHC 32.1 g/dL (32.0-37.0); MCV 90.5 FL (80.0-97.0); Mean Platelet Volume 9.3 FL (9.5-12.2); NRBC Per 100 WBC 0 X 10*3/uL (0.00-0.01); Platelet Count 353 X 10*3/uL (140-440); RBC 5.03 X 10*6/uL (4.10-5.20); RDW 12.4 % (11.5-14.5); WBC 8.09 X 10*3/uL (4.50-10.00)
== END | disposition home or self-care (01) ==
LOC: LABWHC1 09:41
PROVIDERS: ATTEND Orthopaedic Surgery
DX: Z01.812 Encounter for preprocedural laboratory examination (principal); M16.12 Unilateral primary osteoarthritis, left hip; Z22.322 Carrier or suspected carrier of Methicillin resistant Staphylococcus aureus
CPT/HCPCS: 36415; 80053; 85027; 85610; 85730; 86850; 86900; 86901; 87070

== ENCOUNTER 2023-08-27 07:20 | Inpatient (IN) | payer MEDICARE, BC ==
[~2023-08-27 07:20] MED LIST changes: -ALPRAZolam 0.5 MG TAB PO PRN; -HEPARIN SODIUM,PORCINE 5,000 UNIT/ML 1 ML VIAL SQ ONE; -HYDROmorphone 1 MG/ML 1 ML SYRINGE IVP PRN; -LACTATED RINGERS 1,000 ML IV SCH; +LIDOCAINE 1% (10MG/ML) FOR IV START INTRADERMA PRN; +MIDAZOLAM 2 MG/2 ML VIAL IV PRN; -ONDANSETRON 4 MG/2 ML VIAL IVP PRN; -Pre Op ABX Message 1 EACH MISC MISCELLANE ONE; +TRANEXAMIC 1,000 MG/100ML-NACL 1,000 MG in SALINE 1 100ML.BAG IVPB PRN; +fentaNYL (PF) 50 MCG/ML 2 ML AMP IVP PRN
[2023-08-27] MEDS: IV FLUID CONTINUATION 1,000 ML IV ONE (07:49)
[2023-08-27] MEDS: ACETAMINOPHEN TAB 500 MG TAB PO PRN (08:10)
[2023-08-27] MEDS: MELOXICAM 7.5 MG TAB PO PRN (08:10)
[2023-08-27] MEDS: GABAPENTIN 300 MG CAP PO PRN (08:10)
[2023-08-27] MEDS: MIDAZOLAM 2 MG/2 ML VIAL IVP ONE (08:31)
[2023-08-27] MEDS ORDERED: MAGNESIUM HYDROXIDE 2,400 MG/30 ML CUP PO PRN (08:35)
[2023-08-27] MEDS ORDERED: ONDANSETRON 4 MG/2 ML VIAL IVP PRN (08:35)
[2023-08-27] MEDS ORDERED: NALOXONE 0.4 MG/ML 1 ML VIAL IV PRN (08:35)
[2023-08-27] MEDS ORDERED: HYDROmorphone 0.5 MG/0.5 ML SYRINGE IVP PRN ×3 (08:35)
[2023-08-27] MEDS ORDERED: HYDROcodone/APAP 7.5-325MG 1 EACH TAB PO PRN (08:37)
[2023-08-27] MEDS: ONDANSETRON 4 MG/2 ML VIAL IVP ONE (08:41)
[2023-08-27] MEDS: LACTATED RINGERS 1,000 ML IV SCH (08:41)
[2023-08-27] MEDS: DEXAMETHASONE SOD PHOSPHATE 4 MG/ML 1 ML VIAL IV ONE (08:42)
--- NOTE | 2023-08-27 08:42 | P.ANPRN ---
Procedure Note - Anesthesia - Nerve Block Performed Left Jai Single Time Out Performed: Yes Date of Procedure: 08/27/23 Procedure Start Time: 08:35 Procedure Stop Time: 08:40 Indication: Acute Post-Operative Pain, Analgesia, Requested by Surgeon Sedation Type: Sedate with meaningful contact maintained Preparation: Sterile Prep Position: Supine Catheter: None Needle Types: Pajunk Needle Gauge: 21 Ultrasound used to visualize needle placement: Yes Ultrasound used to observe medication spread: Yes Injectate: 0.5% Ropivacaine (see comment for volume) (Ropiv 20ml+Decadron 4mg) Blood Aspirated: No Pain Paresthesia on Injection Noted: No Resistance on Injection: Normal Image Stored and Saved: Yes Events: Uneventful and Well Tolerated
[2023-08-27 08:44] LABS: Glucose,Whole Blood 104 mg/dL (70-110)
[2023-08-27] MEDS ORDERED: PROPOFOL 10 MG/ML 20 ML VIAL IV ONE (08:54)
[2023-08-27] MEDS ORDERED: ROPIVACAINE 5 MG/ML 30 ML VIAL ONE (08:54)
[2023-08-27] MEDS ORDERED: PHENYLEPHRINE-0.9% NACL SYG 1,000 MCG/10 ML SYRINGE ONE (08:54)
[2023-08-27] MEDS ORDERED: fentaNYL (PF) 50 MCG/ML 2 ML AMP ONE (08:54)
[2023-08-27] MEDS ORDERED: TRANEXAMIC 1,000 MG/100ML-NACL PREMIX BAG ONE (08:54)
[2023-08-27] MEDS ORDERED: MIDAZOLAM 2 MG/2 ML VIAL ONE (08:54)
[2023-08-27] MEDS ORDERED: ePHEDrine 50 MG/ML 1 ML VIAL ONE (08:54)
[2023-08-27] MEDS ORDERED: GLYCOPYRROLATE 0.2 MG/ML 2 ML VIAL ONE (08:54)
[2023-08-27] MEDS ORDERED: DEXAMETHASONE SOD PHOSPHATE 4 MG/ML 1 ML VIAL ONE (08:54)
[2023-08-27] MEDS: ceFAZolin 1,000 MG in SODIUM CHLORIDE 0.9% 1,000 ML IRRIGATION ONE (08:57)
[2023-08-27] MEDS: LACTATED RINGERS 1,000 ML IV ONE (09:23)
[2023-08-27] MEDS: ROPIVACAINE 5 MG/ML 30 ML VIAL MISCELLANE ONE ×2 (09:30→11:30)
--- NOTE | 2023-08-27 11:31 | P.OP ---
Date of Procedure: 08/27/23 Preoperative Diagnosis: 1. Severe osteoarthritis left hip 2. Status post close reduction and intramedullary nailing left hip Postoperative Diagnosis: 1. Severe osteoarthritis left hip 2. Status post close reduction and intramedullary nailing left hip Procedure(s) Performed: 1. Removal hardware left hip 2. Left total hip arthroplasty with a direct anterior approach Implants: [employer] Redapt femoral stem, size 17 [employer] R3, 3 hole hemispherical acetabular shell, 54 mm [employer] Reflection 6.5 mm cancellus screw, 20 mm. 25 mm [employer] OR30, 42 mm ID, 54 mm OD, Oxinium dual mobility liner [employer] OR30, 28 mm ID, 42 mm OD, XLPE Dual mobility insert [employer] Oxinium femoral head 28 mm, +4 All components were press-fit. The articulation is Oxinium on polyethylene. Anesthesia: spinal Surgeon: Alonso Edwards Sawmill Manager #1: Omaira Etienne Estimated Blood Loss (ml): 550 Pathology: none sent Condition: stable Disposition: PACU Indications for Procedure: After failure of conservative treatment we discussed the surgical and nonsurgical treatment options at length. Patient wishes to proceed with a total hip arthroplasty with a direct anterior approach plan removal of hardware. Complications specific to this procedure were discussed at length, including but not limited to infection, leg length discrepancy, dislocation, nerve injury, and fracture. Covid-19 was also discussed at length with the patient, and they are aware of the current policies and procedures. The patient was given the option of delaying surgery, but they elect to proceed knowing these risks. Patient is aware of all these complications and informed consent was obtained Operative Findings: The operative findings are consistent with severe osteoarthritis of the left hip and retained hardware Description of Procedure: The patient was seen and evaluated in the preoperative area and the consent was reviewed. The operative site was marked with a skin marker. The patient verified the procedure and operative site. A HELIO block was placed by anesthesia in the preoperative area. The patient was then brought to the operating room and given preoperative antibiotics intravenously. 1 g of Tranexamic acid was also given intravenously. A spinal anesthetic was administered by the anesthesia department. The patient was then placed on the [place] table with the bony prominences well-padded. The hip area was then prepped with a ChloraPrep solution and draped in the usual sterile fashion. A universal timeout was then performed, which confirmed the patient's name, surgical site, ALLERGIES, and procedure being performed on the consent. Next the incision site was located at 1 cm distal and 4 cm lateral to the anterior superior iliac spine. The skin and subcutaneous tissues were sharply incised. Incision was carefully dissected down to the fascia overlying the tensor fascia apurva muscle. This fascia was then incised in line with the muscle fibers. Care was taken to stay laterally in order to avoid injuring the lateral femoral cutaneous nerve. Next, using blunt finger dissection, the tensor fascia apurva muscle was dissected off its investing fascia. The muscle was then carefully retracted laterally with a cobra retractor over the lateral neck of the femur. Next, the circumflex vessels were identified and cauterized using the Aquamantis device. The anterior hip capsule was then exposed. The capsule was then opened and an inverted T fashion. The retractors were then placed intracapsularly. The retractors were maintained intracapsular throughout the procedure. The proximal femur was then visualized. Fluoroscopic x-rays were then taken in order to evaluate the preoperative leg lengths. A small amount of traction was placed on the leg. Next, the hardware was removed from the proximal femur using the appropriate extraction devices. The distal locking screw was removed through a prior incision. The prior incision for the luiza was also used to loosen the locking screw. The femoral neck was then osteotomized at the appropriate level above the lesser trochanter. A small wedge of bone was then removed from the remaining femoral head. Next, using a corkscrew the femoral head was removed from the acetabulum. On gross visual inspection, the femoral head had complete loss of articular cartilage and multiple periarticular osteophytes. The femoral head was then measured. Attention was then turned to the acetabulum. The acetabulum was exposed and any remaining labrum was excised. Sequential reaming of the acetabulum was performed using fluoroscopic guidance until there was a good bed of bleeding cancellus bone. When the appropriate size was reached, a trial was then placed. The position and fit of the trial was checked with fluoroscopy. The trial was then removed. Then, using fluoroscopic guidance, the final implant was impacted at 20 of anteversion and 40 of abduction, and fully seated in the acetabulum. 2 screws were then placed in the acetabulum. Again fluoroscopy was used to check position of the screws. Next, the liner was then impacted, with a 20 elevated liner located in the anterior superior quadrant. Component locking was confirmed. Attention was then directed to the femur. With the aid of the [place] table, the femur was externally rotated to approximately 130, extended, and adducted under the opposite leg. A side hook was then placed under the proximal femur, and the side hook elevator was used to elevate the proximal femur while releasing the capsule. Retractors were then placed. A capsular release was performed, as well as a release of the conjoined tendon, which afforded excellent visualization of the proximal femur. Next, a box osteotome was used to lateralize the proximal femur. A pulling unit floorhand was then used to locate the femoral canal. Sequential reaming was then performed with appropriate size which afforded excellent fixation in the proximal femur. A trial was then placed with appropriate head and neck, and the hip was gently reduced with the aid of the [place] table. Fluoroscopy was then used to check position of the components, as well as to evaluate the leg lengths and offset. The leg lengths and offset were measured as closely as possible to ensure stability of the hip. The hip was then gently dislocated and the trials were then removed. Final implants were then impacted and the hip was again reduced. Final fluoroscopic x-rays confirmed that the components were in anatomic position. The leg lengths and offset were measured and were found to coincide with the trial measurements. The hip was also taken through range of motion, and found to be stable. The hip was then copiously irrigated with antibiotic solution with pulsatile lavage. The hip was then irrigated with Irrisept solution. The soft tissues were then injected with a ropivacaine solution. A second dose of 1 g of Tranexamic acid was also given intravenously. The fascia was then closed with 2-0 strata fix suture. The subcutaneous tissue was closed with 3-0 Vicryl. The subcuticular tissue was closed with 3-0 strata fix suture. The skin was then closed with Exofin skin glue. After the glue and dried, and Optifoam silver impregnated dressing was applied. The patient was then transferred to the recovery room in stable condition. The after school program assistant MAGEN Hancock was required due to the complexity of surgery, and the need for skilled catering assistant for positioning, draping, exposure, retraction, and closure of the wound.
--- NOTE | 2023-08-27 11:44 | XR ---
Intraoperative/procedural fluoroscopic services were provided for left hip arthroplasty. Hardware camilo ears in appropriate position. Total fluoroscopy time is 1.28 minutes with a total of 4 submitted imag es to PACS. Total DAP 2.8070 Gycm2. Please see the operative note for further details.
[2023-08-27] MEDS: HYDROmorphone 0.5 MG/0.5 ML SYRINGE IVP PRN (12:12)
--- NOTE | 2023-08-27 13:24 | XR ---
EXAMINATION TYPE: XR Hip Limited LT DATE OF EXAM: 08/27/2023 CLINICAL HISTORY: Postoperative evaluation TECHNIQUE: Single portable view of the left hip was submitted. FINDINGS: Noted are changes of total hip arthroplasty with femoral and acetabular components appearin g well seated. Alignment is anatomic. Postsurgical soft tissue changes are evident. IMPRESSION: Satisfactory postoperative alignment
[2023-08-27] MEDS: SODIUM CHLORIDE 0.9% 1,000 ML IV SCH (14:04)
[2023-08-27] MEDS: ASPIRIN 325 MG TAB PO SCH (14:37)
[2023-08-27 17:38] LABS: Glucose,Whole Blood 195 mg/dL (70-110)
[2023-08-27 18:28] LABS: Basophils % (A) 0 %; Eosinophils % (A) 0 %; HGB 10.2 gm/dL (11.4-16.0); Hypochromasia Moderate; Lymphocytes # (A) 0.6 k/uL (1.0-4.8); Lymphocytes % (A) 3 %; MCH 29.7 pg (25.0-35.0); MCV 95.6 fL (80.0-100.0); Mean Platelet Volume 7.8; Monocytes # (A) 1.3 k/uL (0-1.0); Monocytes % (A) 7 %; Neutrophils # (A) 16.5 k/uL (1.3-7.7); Neutrophils % (A) 89 %; Platelet Count 240 k/uL (150-450); RBC 3.45 m/uL (3.80-5.40); RDW 12.7 % (11.5-15.5); WBC 18.6 k/uL (3.8-10.6)
[2023-08-27 18:37] LABS: African American GFR (CKD) >90 (>60 ml/min/1.73 sqM); Anion Gap 12 mmol/L; Blood Urea Nitrogen 16 mg/dL (7-17); Calcium 8.8 mg/dL (8.4-10.2); Carbon Dioxide 14 mmol/L (22-30); Chloride 113 mmol/L (98-107); Glucose 179 mg/dL (74-99); Non-African American GFR(CKD) >90 (>60 ml/min/1.73 sqM); Sodium 139 mmol/L (137-145)
[2023-08-27] MEDS: SODIUM CHLORIDE 0.9% 1,000 ML BAG IV STA (18:51)
--- NOTE | 2023-08-27 18:54 | P.EN ---
CODE SAM called overhead. On arrival patient was already, had ROSC. Still complaining of lightheadedness. Blood pressure within normal limits. Per nurse, she was on the toilet when this happened. Possible vasovagal. Patient did receive CPR for 1 minute. Labs ordered. Patient being bolused with 1 L of normal saline. Started on telemetry. EKG ordered. Primary service and consulting service being notified by nurse. Cardiology also consulted.
--- NOTE | 2023-08-27 19:16 | XR ---
EXAMINATION TYPE: XR Hip LT and AP Pelvis DATE OF EXAM: 08/27/2023 6:51 PM CLINICAL INDICATION:Female, 72 years old with history of pain; COMPARISON: None. TECHNIQUE: XR Hip LT and AP Pelvis; hip was examined in the frontal and lateral projections and a AP pelvis. FINDINGS: Post arthroplasty changes, hardware is intact, alignment is appropriate. No evidence of fra cture. Postoperative changes of the soft tissues with subcutaneous gas. No evidence of any acute osse ous pathology or joint dislocation. Moderate to severe degeneration changes right hip with joint spac e narrowing and osteophyte formation. IMPRESSION: Hip arthroplasty with hardware intact and in appropriate alignment. No acute fracture.
--- NOTE | 2023-08-27 19:17 | XR ---
EXAMINATION TYPE: XR chest 1V portable DATE OF EXAM: 08/27/2023 6:51 PM CLINICAL INDICATION:Female, 72 years old with history of shortness of breath; [facility] COMPARISON: Chest radiographs from 09/26/2022. TECHNIQUE: XR chest 1V portable Frontal view of the chest. FINDINGS: Lungs/Pleura: There is no evidence of pleural effusion, focal consolidation, or pneumothorax. Pulmonary vascularity: Unremarkable. Heart/mediastinum: Cardiomediastinal silhouette is unremarkable. Musculoskeletal: No acute osseous pathology. IMPRESSION: 1. No acute cardiopulmonary disease process. 2. COPD changes.
[2023-08-27] MEDS: HYDROcodone/APAP 7.5-325MG 1 EACH TAB PO PRN (20:44)
[2023-08-27] MEDS: SENNOSIDES-DOCUSATE SODIUM 1 EACH TAB PO SCH (20:44)
--- NOTE | 2023-08-28 02:34 | P.CONS ---
History of Present Illness - Reason for Consult Consult date: 08/27/23 Medical management - Chief Complaint Status post left total hip arthroplasty - History of Present Illness Patient is a 72-year-old male with a past medical history of osteoarthritis, right breast cancer with lumpectomy and radiation in 2016, vertigo, cervical dysplasia in 1988, anxiety/depression with panic disorder, patient has a guardian and prior history of smoking was admitted to the hospital for elective left total hip arthroplasty. Patient is s/p left total hip arthroplasty with direct anterior approach. Postoperative 0 Currently denies any complaints of chest pain or shortness of breath. Dizziness or lightheadedness. Patient is drowsy. No complaints of nausea or vomiting. No cough or sputum production. Patient has been afebrile. Postoperatively blood pressure was 103/69 pulse 91 respiration 18 pulse ox 99% on 3 L oxygen via nasal cannula. Oxygen is being titrated down to room air. Laboratory data showed WBC 18.6 hemoglobin 10.2 and platelets 240 sodium 139 potassium 4.0 chloride 103 bicarb is 14 BUN 16 and creatinine 0.64 and blood sugar 179. Review of Systems Complete review of systems could not be obtained from the patient as the patient is being drowsy.. ROS unobtainable: due to mental status Past Medical History Past Medical History: Cancer, Eye Disorder, Osteoarthritis (OA) Additional Past Medical History / Comment(s): R breast cancer with lumpectomy and radiation 2016, osteopenia, vertigo at times, dry eyes bilaterally,hypotensive episode 01/22/19. 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 Cervical dysplasia 1988. 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 ORIF LT HIP, CATARACT REMOVED WITH LENS IMPLANT (NOT SURE WHICH SIDE) Past Anesthesia/Blood Transfusion Reactions: No Reported Reaction Additional Past Anesthesia/Blood Transfusion Reaction / Comm: "Sensitivity to anesthesia" Past Psychological History: Anxiety, Depression, Panic Disorder Additional Psychological History / Comment(s): Pt resides at home with 2 room mates. She is independent. Smoking Status: Former smoker Past Alcohol Use History: None Reported, Occasional Additional Past Alcohol Use History / Comment(s): Pt started smoking occasionally in her 20s and quit in her 30s. LAST DRANK OVER A YEAR OR MORE Past Drug Use History: None Reported - Past Family History Father Family Medical History: Cancer Additional Family Medical History / Comment(s): Father at age 74 from colon cancer. Mother Family Medical History: Deep Vein Thrombosis (DVT) Additional Family Medical History / Comment(s): . Brother(s) Additional Family Medical History / Comment(s): Patient has 1 brother with no major medical problems. Patient does not have any sisters. Patient has 1 son. Medications and Allergies Home Medications Medication Instructions Recorded Confirmed Type OLANZapine [ZyPREXA] 20 mg PO BID 08/20/22 08/27/23 History Sertraline [Zoloft] 150 mg PO DAILY 08/20/22 08/27/23 History hydrOXYzine pamoate [Vistaril] 150 mg PO BID 08/22/23 08/27/23 History Aspirin 325 mg PO BID #60 tab 08/27/23 Rx HYDROcodone/APAP 7.5-325MG [[place] 1 - 2 tab PO Q6H PRN #32 tab 08/27/23 Rx 7.5-325] Sennosides [Senokot] 2 tab PO DAILY PRN #60 tablet 08/27/23 Rx Allergies Allergy/AdvReac Type Severity Reaction Status Date / Time No Known Allergies Allergy Verified 08/27/23 07:53 Physical Exam Vitals: Vital Signs Temp Pulse Resp BP BP Pulse Ox 08/27/23 20:42 66 18 111/66 99 08/27/23 18:55 112/66 08/27/23 18:00 107 H 115/58 98 08/27/23 16:14 98 08/27/23 14:42 97.6 F 91 18 103/69 99 08/27/23 14:05 84 16 114/61 98 08/27/23 13:30 67 16 117/55 99 08/27/23 13:00 75 16 118/59 98 08/27/23 12:30 64 16 120/58 97 08/27/23 12:15 82 16 111/55 100 08/27/23 11:59 97.9 F 66 16 126/59 100 08/27/23 08:45 58 L 16 111/59 100 08/27/23 08:12 97.8 F 94 16 142/68 97 Intake and Output 08/27/23 08/27/23 08/27/23 06:59 14:59 22:59 Intake Total 1351 1000 Output Total 550 Balance 801 1000 Intake: IV 1351 Intake, IV Titration 1000 Amount IV Fluid Continuation 1, 1000 000 ml @ 0 mls/hr IV .[facility] Rx#:[id number] Output: Estimated Blood Loss 550 Other: # Voids 1 Weight 58.6 kg PHYSICAL EXAMINATION: Patient is lying in the bed comfortably, no acute distress, awake alert and oriented.. HEENT: Normocephalic. Neck is supple. Pupils reactive. Nostrils clear. Oral cavity is moist. Neck reveals no JVD, carotid bruits, or thyromegaly. CHEST EXAMINATION: Trachea is central. Symmetrical expansion. Bibasilar diminished sounds. Lung carrera clear to auscultation and percussion. CARDIAC: Normal S1, S2 with no gallops. No murmurs ABDOMEN: Soft. Bowel sounds normal. No organomegaly. No abdominal bruits. Extremities: reveal no edema. No clubbing or cyanosis Neurologically awake, alert, oriented x 2-3. With well-coordinated movements. No gross focal deficits noted Skin: No rash or skin lesions. Psychiatric: Coperative. Nonsuicidal Musculoskeletal: No joint swelling or deformity. Left hip surgical site intact. Results CBC & Chem 7: 08/27/23 17:57 08/27/23 17:57 Labs: Abnormal Lab Results - Last 24 Hours (Table) 08/27/23 08/27/23 08/27/23 Range/Units 17:37 17:57 17:57 WBC 18.6 H (3.8-10.6) k/uL RBC 3.45 L (3.80-5.40) m/uL Hgb 10.2 L (11.4-16.0) gm/dL Hct 33.0 L (34.0-46.0) % Neutrophils # 16.5 H (1.3-7.7) k/uL Lymphocytes # 0.6 L (1.0-4.8) k/uL Monocytes # 1.3 H (0-1.0) k/uL Chloride 113 H (98-107) mmol/L Carbon Dioxide 14 L (22-30) mmol/L Glucose 179 H (74-99) mg/dL POC Glucose (mg/dL) 195 H (70-110) mg/dL Assessment and Plan Assessment: Status post left total hip arthroplasty postoperative day 0 Leukocytosis likely due to postoperative surgical inflammation. Osteoarthritis History of right breast cancer s/p lumpectomy and radiation 2017 History of vertigo Anxiety/depression and panic disorder. Patient has a legal guardian. Prior history of smoking DVT prophylaxis and GI prophylaxis Plan: Patient will be continued on IV hydration with normal saline. Limit narcotic pain medication use. Encourage incentive spirometry. Psychiatric medications on hold due to patient being drowsy at this time. Follow-up CBC and BMP. Monitor H&H. Replace electrolytes and further recommendations based on clinical course. Thank you kindly for your consult. Time with Patient: Greater than 30
[2023-08-28 08:42] LABS: Basophils # (A) 0.02 X 10*3/uL (0.00-0.10); Basophils % (A) 0.2 %; Eosinophils # (A) 0.03 X 10*3/uL (0.04-0.35); Eosinophils % (A) 0.3 %; HCT 24.8 % (37.2-46.3); HGB 8.2 g/dL (12.0-15.0); Lymphocytes # (A) 1.71 X 10*3/uL (0.90-5.00); Lymphocytes % (A) 19.2 %; MCH 29.7 pg (27.0-32.0); MCHC 33.1 g/dL (32.0-37.0); MCV 89.9 FL (80.0-97.0); Mean Platelet Volume 9.6 FL (9.5-12.2); Monocytes # (A) 1.26 X 10*3/uL (0.20-1.00); Monocytes % (A) 14.1 %; NRBC Per 100 WBC 0 X 10*3/uL (0.00-0.01); Neutrophils # (A) 5.87 X 10*3/uL (1.80-7.70); Neutrophils % (A) 65.9 %; Platelet Count 221 X 10*3/uL (140-440); RBC 2.76 X 10*6/uL (4.10-5.20); RDW 12.7 % (11.5-14.5); WBC 8.92 X 10*3/uL (4.50-10.00)
[2023-08-28 09:22] LABS: BUN/Creat Ratio 24.71 Ratio (12.00-20.00); Blood Urea Nitrogen 17.3 mg/dL (9.0-27.0); Calcium 8.2 mg/dL (8.7-10.3); Carbon Dioxide 24.7 mmol/L (21.6-31.8); Chloride 108 mmol/L (96-109); Glucose 127 mg/dL (70-110); Potassium 3.6 mmol/L (3.5-5.5); Sodium 141 mmol/L (135-145)
--- NOTE | 2023-08-28 09:50 | P.PN ---
Subjective Progress Note Date: 08/28/23 This is a 72-year-old female who is status post left total hip arthroplasty. This is postoperative day #1 and patient is seen and evaluated at bedside with Dr. Alonso Edwards. Patient states that she is feeling well this morning, but had an episode last night where she became unresponsive while using the restroom. Per medical, the patient underwent CPR for 1 minute and recovered well. Patient has been evaluated by internal medicine and cardiology. Troponins are negative so far. Patient denies any fever/chills, chest pain, shortness breath, abdominal pain, numbness, weakness or tingling. Objective - Vital Signs Vital signs: Vital Signs Temp 98.2 F 08/28/23 07:05 Pulse 87 08/28/23 07:05 Resp 18 08/28/23 07:05 BP 107/61 08/28/23 07:05 Pulse Ox 98 08/28/23 07:05 FiO2 Intake & Output 08/27/23 08/28/23 08/28/23 18:59 06:59 18:59 Intake Total 2351 Output Total 550 300 Balance 1801 -300 Weight 58.6 kg Intake: IV 1351 Intake, IV Titration 1000 Amount IV Fluid Continuation 1, 1000 000 ml @ 0 mls/hr IV .[facility] Rx#:[id number] Output: Urine 300 Estimated Blood Loss 550 Other: # Voids 1 1 - Exam Vital signs are stable. Patient is in no acute distress and is alert and oriented 3. Calf is soft and nontender to palpation. Dressing is clean, dry, and intact. Patient has full foot and ankle motion without pain or difficulty. Sensation intact. Neurovascular status and circulatory status are intact. - Labs CBC & Chem 7: 08/28/23 05:00 08/28/23 05:00 Labs: Abnormal Lab Results - Last 24 Hours (Table) 08/27/23 08/27/23 08/27/23 Range/Units 17:37 17:57 17:57 WBC 18.6 H (3.8-10.6) k/uL RBC 3.45 L (3.80-5.40) m/uL Hgb 10.2 L (11.4-16.0) gm/dL Hct 33.0 L (34.0-46.0) % Neutrophils # 16.5 H (1.3-7.7) k/uL Lymphocytes # 0.6 L (1.0-4.8) k/uL Monocytes # 1.3 H (0-1.0) k/uL Eosinophils # (0.04-0.35) X 10*3/uL Chloride 113 H (98-107) mmol/L Carbon Dioxide 14 L (22-30) mmol/L BUN/Creatinine Ratio (12.00-20.00) Ratio Glucose 179 H (74-99) mg/dL POC Glucose (mg/dL) 195 H (70-110) mg/dL Calcium (8.7-10.3) mg/dL 08/28/23 08/28/23 Range/Units 05:00 05:00 WBC (3.8-10.6) k/uL RBC 2.76 L (3.80-5.40) m/uL Hgb 8.2 L (11.4-16.0) gm/dL Hct 24.8 L (34.0-46.0) % Neutrophils # (1.3-7.7) k/uL Lymphocytes # (1.0-4.8) k/uL Monocytes # 1.26 H (0-1.0) k/uL Eosinophils # 0.03 L (0.04-0.35) X 10*3/uL Chloride (98-107) mmol/L Carbon Dioxide (22-30) mmol/L BUN/Creatinine Ratio 24.71 H (12.00-20.00) Ratio Glucose 127 H (74-99) mg/dL POC Glucose (mg/dL) (70-110) mg/dL Calcium 8.2 L (8.7-10.3) mg/dL Assessment and Plan Assessment: History of closed reduction and intramedullary nailing of the left hip. Status post removal of left hip hardware and left total hip arthroplasty with direct anterior approach. (1) Osteoarthritis of left hip Current Visit: Yes Status: Acute Code(s): M16.12 - UNILATERAL PRIMARY OSTEOARTHRITIS, LEFT HIP SNOMED Code(s): 973815852126527 (2) S/P total hip arthroplasty Current Visit: Yes Status: Acute Code(s): Z96.649 - PRESENCE OF UNSPECIFIED ARTIFICIAL HIP JOINT SNOMED Code(s): 090727191908 Plan: Continue routine postop care and pain control. Continue anticoagulation with aspirin. Weightbearing as tolerated with a walker. Leave dressing in place for 7 days. Appreciate input from internal medicine. Anticipate discharge to [facility]CF in the next 24-48 hours.
--- NOTE | 2023-08-28 11:09 | P.CRDCN ---
History of Present Illness History of present illness: HISTORY OF PRESENT ILLNESS: This is a 72-year-old female with a past medical history significant for anxiety, depression, panic disorder, and breast cancer with previous lumpectomy and radiation. Patient does not follow with a compensation and benefits manager. We have been asked to see the patient in consultation for syncope. Patient examined at the bedside. Patient is status post left total hip arthroplasty with Dr. Edwards performed on 08/27/2023. Apparently, yesterday the patient was in the bathroom sitting on the toilet when she passed out. The patient does report that she had some lightheadedness. The patient apparently received 1 minute of CPR per documentation. However the patient is adamant that she never lost consciousness and that she did not receive CPR. She currently denies any chest pain or pressure. She denies any shortness of breath. Vital signs are stable. Telemetry reviewed revealing sinus mechanism. DIAGNOSTICS: - EKG reveals sinus mechanism with diffuse T wave inversions. - Chest xray negative for acute process. COPD changes. - Laboratory data: WBC 8.92. Hemoglobin 8.2. Platelet count 221. Sodium 141. Potassium 3.6. BUN 17. Creatinine 0.7. Troponin negative x 1 - Current home cardiac medications include none. - Most recent echocardiogram obtained in April 2021 revealing ejection fraction 60 to 65% with mild TR - Cardiac catheterization history: January 2019 revealing normal coronary arteries REVIEW OF SYSTEMS: At the time of my exam: CONSTITUTIONAL: Denies fever or chills. HEENT: Denies blurred vision, vision changes, or eye pain. Denies hemoptysis CARDIOVASCULAR: Denies chest pain. Denies orthopnea. Denies PND. Denies palpitations RESPIRATORY: Denies shortness of breath. GASTROINTESTINAL: Denies abdominal pain. Denies nausea or vomiting. HEMATOLOGIC: Denies bleeding disorders. GENITOURINARY: Denies any blood in urine. SKIN: Denies pruitis. Denies rash. PHYSICAL EXAM: VITAL SIGNS: Reviewed. GENERAL: Well-developed in no acute distress. HEENT: Head is normocephalic. Pupils are equal, round. Sclerae anicteric. Mucous membranes of the mouth are moist. Neck supple. No JVD or thyromegaly LUNGS: Respirations even and unlabored. Lungs essentially clear to auscultation bilaterally. HEART: Regular rate and rhythm. S1 and S2 heard. ABDOMEN: Soft. Nondistended. Nontender. EXTREMITIES: Normal range of motion. No clubbing or cyanosis. Peripheral pulses intact. No lower extremity edema NEUROLOGIC: Awake and alert. Oriented x 3. ASSESSMENT: Syncope; possibly vasovagal in nature Status post left total hip arthroplasty Abnormal EKG with diffuse t-wave inversions Normal coronary arteries, per cardiac catheterization January 2019 History of breast cancer with previous lumpectomy and radiation History of anxiety History of depression History of panic disorder PLAN: Continue postoperative management per orthopedics Obtain 2D echo to assess cardiac structure and function Continue telemetry monitoring to assess for any arrhythmias. Review of telemetry thus far does not reveal any arrhythmias or high-grade AV block. Obtain orthostatic blood pressures Further recommendations pending patient course Nurse practitioner note has been reviewed by physician. Signing provider agrees with the documented findings, assessment, and plan of care documented by ROUTING MACHINE OPERATOR as a scribe. Past Medical History Past Medical History: Cancer, Eye Disorder, Osteoarthritis (OA) Additional Past Medical History / Comment(s): R breast cancer with lumpectomy and radiation 2016, osteopenia, vertigo at times, dry eyes bilaterally,hypotensive episode 01/22/19. 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 Cervical dysplasia 1988. 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 ORIF LT HIP, CATARACT REMOVED WITH LENS IMPLANT (NOT SURE WHICH SIDE) Past Anesthesia/Blood Transfusion Reactions: No Reported Reaction Additional Past Anesthesia/Blood Transfusion Reaction / Comment(s): "Sensitivity to anesthesia" Past Psychological History: Anxiety, Depression, Panic Disorder Additional Psychological History / Comment(s): Pt resides at home with 2 room mates. She is independent. Smoking Status: Former smoker Past Alcohol Use History: None Reported, Occasional Additional Past Alcohol Use History / Comment(s): Pt started smoking occasionally in her 20s and quit in her 30s. LAST DRANK OVER A YEAR OR MORE Past Drug Use History: None Reported - Past Family History Father Family Medical History: Cancer Additional Family Medical History / Comment(s): Father at age 74 from colon cancer. Mother Family Medical History: Deep Vein Thrombosis (DVT) Additional Family Medical History / Comment(s): . Brother(s) Additional Family Medical History / Comment(s): Patient has 1 brother with no major medical problems. Patient does not have any sisters. Patient has 1 son. Medications and Allergies Home Medications Medication Instructions Recorded Confirmed Type OLANZapine [ZyPREXA] 20 mg PO BID 08/20/22 08/27/23 History Sertraline [Zoloft] 150 mg PO DAILY 08/20/22 08/27/23 History hydrOXYzine pamoate [Vistaril] 150 mg PO BID 08/22/23 08/27/23 History Aspirin 325 mg PO BID #60 tab 08/27/23 Rx HYDROcodone/APAP 7.5-325MG [[place] 1 - 2 tab PO Q6H PRN #32 tab 08/27/23 Rx 7.5-325] Sennosides [Senokot] 2 tab PO DAILY PRN #60 tablet 08/27/23 Rx Allergies Allergy/AdvReac Type Severity Reaction Status Date / Time No Known Allergies Allergy Verified 08/27/23 07:53 Physical Exam Vitals: Vital Signs Temp Pulse Resp BP BP Pulse Ox 08/28/23 07:05 98.2 F 87 18 107/61 98 08/28/23 03:13 72 18 106/61 97 08/28/23 00:18 97.8 F 78 15 111/57 99 08/27/23 22:08 66 108/63 100 08/27/23 20:42 66 18 111/66 99 08/27/23 19:48 97.4 F L 68 14 99/64 100 08/27/23 18:55 112/66 08/27/23 18:00 107 H 115/58 98 08/27/23 16:14 98 08/27/23 14:42 97.6 F 91 18 103/69 99 08/27/23 14:05 84 16 114/61 98 08/27/23 13:30 67 16 117/55 99 08/27/23 13:00 75 16 118/59 98 08/27/23 12:30 64 16 120/58 97 08/27/23 12:15 82 16 111/55 100 08/27/23 11:59 97.9 F 66 16 126/59 100 Intake and Output 08/27/23 08/28/23 08/28/23 22:59 06:59 14:59 Intake Total 1000 Output Total 300 Balance 1000 -300 Intake: Intake, IV Titration 1000 Amount IV Fluid Continuation 1, 1000 000 ml @ 0 mls/hr IV .[facility] -[facility] Rx#:[id number] Output: Urine 300 Other: # Voids 1 1 Results 08/28/23 05:00 08/28/23 05:00 Cardiac Enzymes 08/27/23 Range/Units 19:04 Troponin I <0.012 (0.000-0.034) ng/mL CBC 08/27/23 08/28/23 Range/Units 17:57 05:00 WBC 18.6 H 8.92 (3.8-10.6) k/uL RBC 3.45 L 2.76 L (3.80-5.40) m/uL Hgb 10.2 L 8.2 L (11.4-16.0) gm/dL Hct 33.0 L 24.8 L (34.0-46.0) % Plt Count 240 221 (150-450) k/uL Comprehensive Metabolic Panel 08/27/23 08/28/23 Range/Units 17:57 05:00 Sodium 139 141 (137-145) mmol/L Potassium 4.0 3.6 (3.5-5.1) mmol/L Chloride 113 H 108 (98-107) mmol/L Carbon Dioxide 14 L 24.7 (22-30) mmol/L BUN 16 17.3 (7-17) mg/dL Creatinine 0.64 0.7 (0.52-1.04) mg/dL Glucose 179 H 127 H (74-99) mg/dL Calcium 8.8 8.2 L (8.4-10.2) mg/dL Current Medications Generic Name Dose Route Start Last Admin Trade Name Freq PRN Reason Stop Dose Admin Hydrocodone Bitart/Acetaminophen 1 each 08/27/23 08:37 08/28/23 08:12 Hydrocodone/Apap 7.5-325mg 1 Each Tab PO 1 each Q6H PRN Administration Pain Scale 1 to 5 Hydrocodone Bitart/Acetaminophen 2 each 08/27/23 08:37 Hydrocodone/Apap 7.5-325mg 1 Each Tab PO Q6H PRN Pain Scale 6 to 10 Aspirin 325 mg 08/27/23 09:00 08/28/23 08:13 Aspirin 325 Mg Tab PO 325 mg BID MEI Administration Hydromorphone HCl 0.125 mg 08/27/23 08:35 Hydromorphone 0.5 Mg/0.5 Ml Syringe IVP Q3HR PRN Pain Scale 1 to 3 Hydromorphone HCl 0.5 mg 08/27/23 08:35 Hydromorphone 0.5 Mg/0.5 Ml Syringe IVP Q3HR PRN Pain Scale 7 to 10 Hydromorphone HCl 0.25 mg 08/27/23 08:35 Hydromorphone 0.5 Mg/0.5 Ml Syringe IVP Q3HR PRN Pain Scale 4 to 6 Lactated Ringer's 1,000 mls @ 20 mls/hr 08/27/23 05:49 08/28/23 08:06 Lactated Ringers IV Not Given .Q24H MEI Sodium Chloride 1,000 mls @ 65 mls/hr 08/27/23 08:45 08/28/23 08:13 Saline 0.9% IV 65 mls/hr .[id number] MEI Administration Lidocaine HCl 0.1 ml 08/27/23 05:49 Lidocaine 1% (10mg/Ml) For Iv Start INTRADERMA PER PROTOCOL PRN IV Start Magnesium Hydroxide 2,400 mg 08/27/23 08:35 Magnesium Hydroxide 2,400 Mg/30 Ml Cup PO DAILY PRN Constipation Naloxone HCl 0.2 mg 08/27/23 08:35 Naloxone 0.4 Mg/Ml 1 Ml Vial IV Q2M PRN Opioid Reversal Ondansetron HCl 4 mg 08/27/23 08:35 Ondansetron 4 Mg/2 Ml Vial IVP Q8H PRN Nausea And Vomiting Senna/Docusate Sodium 2 each 08/27/23 21:00 08/27/23 20:44 Sennosides-Docusate Sodium 1 Each Tab PO 2 each HS MEI Administration Intake and Output 08/27/23 08/28/23 08/28/23 22:59 06:59 14:59 Intake Total 1000 Output Total 300 Balance 1000 -300 Intake: Intake, IV Titration 1000 Amount IV Fluid Continuation 1, 1000 000 ml @ 0 mls/hr IV .[employer] -[facility] Rx#:[id number] Output: Urine 300 Other: # Voids 1 1 08/28/23 05:00 08/28/23 05:00
[2023-08-28 14:34] VITALS: BMI 18.5
[2023-08-28] MEDS: SERTRALINE 50 MG TAB PO SCH (17:46)
[2023-08-28] MEDS: OLANZapine 10 MG TAB PO SCH (17:46)
[2023-08-28 18:19] LABS: Appearance,Urine Cloudy (Clear); Bilirubin,Urine Negative (Negative); Blood,Urine Negative (Negative); Calcium Oxalate Crystals,Urine Many /hpf; Color,Urine Yellow; Glucose,Urine (UA) Negative (Negative); Ketones,Urine Trace (Negative); Leukocyte Esterase,Urine Moderate (Negative); Mucus,Urine Many /hpf; Nitrite,Urine Negative (Negative); Protein,Urine Trace (Negative); RBC,Urine 4 /hpf (0-5); Specific Gravity,Urine 1.029 (1.001-1.035); Squamous Epithelial Cell,Urine 2 /hpf (0-4); Urobilinogen,Urine <2.0 mg/dL (<2.0); WBC,Urine 30 /hpf (0-5)
--- NOTE | 2023-08-28 22:35 | P.PN ---
Subjective Patient is a 72-year-old male with a past medical history of osteoarthritis, right breast cancer with lumpectomy and radiation in 2017, vertigo, cervical dysplasia in 1988, anxiety/depression with panic disorder, patient has a guardian and prior history of smoking was admitted to the hospital for elective left total hip arthroplasty. Patient is s/p left total hip arthroplasty with direct anterior approach. Postoperative 0 Currently denies any complaints of chest pain or shortness of breath. Dizziness or lightheadedness. Patient is drowsy. No complaints of nausea or vomiting. No cough or sputum production. Patient has been afebrile. Postoperatively blood pressure was 103/69 pulse 91 respiration 18 pulse ox 99% on 3 L oxygen via nasal cannula. Oxygen is being titrated down to room air. Laboratory data showed WBC 18.6 hemoglobin 10.2 and platelets 240 sodium 139 potassium 4.0 chloride 103 bicarb is 14 BUN 16 and creatinine 0.64 and blood sugar 179. 08/28/2023 Patient is a pleasant 72 years old lady with multiple medical problems including psychosis, depression, previous falls. Presents from home because of fall and severe osteoarthritis of left hip status post left total hip arthroplasty Postoperatively her hemoglobin was slightly low which is expected However yesterday evening and at nighttime she had periods of unresponsiveness in which code fluid was called and patient underwent CPR for 1 minute with return of spontaneous circulation, however short-lived code make it suspicious for syncope rather than cardiac arrest However currently she is fully awake and oriented, she feels somewhat weak but no distress, pain controlled. Denies chest pain or dyspnea or any other complaint Patient evaluated by security delivery specialist and they also think it is more vasovagal syncope Echocardiogram is ordered and pending Patient also has been complaining from some urinary retention status post straight cath, urine analysis slightly abnormal, and we will going to repeat the urine analysis and check a bladder scan 1 more time as per discussed with the night nurse Patient also looks malnourished and dietitian consult was obtained Elevated WBC 18,000 came back to 8.9, most likely reactive. Hemoglobin 10.2 came down to 8.1, postoperative anemia as expected Review of systems CONSTITUTIONAL: No fever, no malaise, no fatigue. HEENT: No recent visual problems or hearing problems. Denied any sore throat. CARDIOVASCULAR: No orthopnea, PND, no palpitations, no syncope. PULMONARY: No shortness of breath, no cough, no hemoptysis. GASTROINTESTINAL: No diarrhea, no nausea, no vomiting, no abdominal pain. Normoactive bowel sounds. NEUROLOGICAL: No headaches, no weakness, no numbness. Active Medications Generic Name Dose Route Start Last Admin Trade Name Freq PRN Reason Stop Dose Admin Hydrocodone Bitart/Acetaminophen 1 each 08/27/23 08:37 08/28/23 17:46 Hydrocodone/Apap 7.5-325mg 1 Each Tab PO 1 each Q6H PRN Administration Pain Scale 1 to 5 Hydrocodone Bitart/Acetaminophen 2 each 08/27/23 08:37 Hydrocodone/Apap 7.5-325mg 1 Each Tab PO Q6H PRN Pain Scale 6 to 10 Aspirin 325 mg 08/27/23 09:00 08/28/23 20:06 Aspirin 325 Mg Tab PO 325 mg BID MEI Administration Hydromorphone HCl 0.125 mg 08/27/23 08:35 Hydromorphone 0.5 Mg/0.5 Ml Syringe IVP Q3HR PRN Pain Scale 1 to 3 Hydromorphone HCl 0.5 mg 08/27/23 08:35 Hydromorphone 0.5 Mg/0.5 Ml Syringe IVP Q3HR PRN Pain Scale 7 to 10 Hydromorphone HCl 0.25 mg 08/27/23 08:35 Hydromorphone 0.5 Mg/0.5 Ml Syringe IVP Q3HR PRN Pain Scale 4 to 6 Lactated Ringer's 1,000 mls @ 20 mls/hr 08/27/23 05:49 08/28/23 08:06 Lactated Ringers IV Not Given .Q24H MEI Sodium Chloride 1,000 mls @ 65 mls/hr 08/27/23 08:45 08/28/23 20:46 Saline 0.9% IV 65 mls/hr .[id number] MEI Administration Lidocaine HCl 0.1 ml 08/27/23 05:49 Lidocaine 1% (10mg/Ml) For Iv Start INTRADERMA PER PROTOCOL PRN IV Start Magnesium Hydroxide 2,400 mg 08/27/23 08:35 Magnesium Hydroxide 2,400 Mg/30 Ml Cup PO DAILY PRN Constipation Naloxone HCl 0.2 mg 08/27/23 08:35 Naloxone 0.4 Mg/Ml 1 Ml Vial IV Q2M PRN Opioid Reversal Olanzapine 20 mg 08/28/23 21:00 08/28/23 17:46 Olanzapine 10 Mg Tab PO 20 mg BID MEI Administration Ondansetron HCl 4 mg 08/27/23 08:35 Ondansetron 4 Mg/2 Ml Vial IVP Q8H PRN Nausea And Vomiting Senna/Docusate Sodium 2 each 08/27/23 21:00 08/28/23 20:06 Sennosides-Docusate Sodium 1 Each Tab PO 2 each HS MEI Administration Sertraline HCl 150 mg 08/28/23 17:15 08/28/23 17:46 Sertraline 50 Mg Tab PO 150 mg DAILY MEI Administration Tamsulosin HCl 0.4 mg 08/28/23 22:30 Tamsulosin 0.4 Mg Cap.Er.24h PO PC-SUPPER MEI Objective - Vital Signs Vital signs: Vital Signs Temp 98.2 F 08/28/23 07:05 Pulse 87 08/28/23 07:05 Resp 18 08/28/23 07:05 BP 107/61 08/28/23 07:05 Pulse Ox 98 08/28/23 07:05 FiO2 Intake & Output 08/27/23 08/28/23 08/28/23 18:59 06:59 18:59 Intake Total 2351 Output Total 550 300 Balance 1801 -300 Weight 58.6 kg Intake: IV 1351 Intake, IV Titration 1000 Amount IV Fluid Continuation 1, 1000 000 ml @ 0 mls/hr IV .[employer] [facility] Rx#:[id number] Output: Urine 300 Estimated Blood Loss 550 Other: # Voids 1 1 - Exam -GENERAL: The patient is alert and oriented x3, not in any acute distress. Well developed, well nourished. Thin built HEENT: Pupils are round and equally reacting to light. EOMI. No scleral icterus. No conjunctival pallor. Normocephalic, atraumatic. No pharyngeal erythema. No thyromegaly. CARDIOVASCULAR: S1 and S2 present. No murmurs, rubs, or gallops. PULMONARY: Chest is clear to auscultation, no wheezing , no crackles. ABDOMEN: Soft, nontender, nondistended, normoactive bowel sounds. No palpable organomegaly. -MUSCULOSKELETAL: No joint swelling or deformity. Left hip wound with dressing in place, rest of exam is deferred to surgery team EXTREMITIES: No cyanosis, clubbing, or pedal edema. NEUROLOGICAL: Gross neurological examination did not reveal any focal deficits. SKIN: No rashes. no petechiae. - Labs CBC & Chem 7: 08/28/23 05:00 08/28/23 05:00 Labs: Abnormal Lab Results - Last 24 Hours (Table) 08/27/23 08/27/23 08/27/23 Range/Units 17:37 17:57 17:57 WBC 18.6 H (3.8-10.6) k/uL RBC 3.45 L (3.80-5.40) m/uL Hgb 10.2 L (11.4-16.0) gm/dL Hct 33.0 L (34.0-46.0) % Neutrophils # 16.5 H (1.3-7.7) k/uL Lymphocytes # 0.6 L (1.0-4.8) k/uL Monocytes # 1.3 H (0-1.0) k/uL Eosinophils # (0.04-0.35) X 10*3/uL Chloride 113 H (98-107) mmol/L Carbon Dioxide 14 L (22-30) mmol/L BUN/Creatinine Ratio (12.00-20.00) Ratio Glucose 179 H (74-99) mg/dL POC Glucose (mg/dL) 195 H (70-110) mg/dL Calcium (8.7-10.3) mg/dL 08/28/23 08/28/23 Range/Units 05:00 05:00 WBC (3.8-10.6) k/uL RBC 2.76 L (3.80-5.40) m/uL Hgb 8.2 L (11.4-16.0) gm/dL Hct 24.8 L (34.0-46.0) % Neutrophils # (1.3-7.7) k/uL Lymphocytes # (1.0-4.8) k/uL Monocytes # 1.26 H (0-1.0) k/uL Eosinophils # 0.03 L (0.04-0.35) X 10*3/uL Chloride (98-107) mmol/L Carbon Dioxide (22-30) mmol/L BUN/Creatinine Ratio 24.71 H (12.00-20.00) Ratio Glucose 127 H (74-99) mg/dL POC Glucose (mg/dL) (70-110) mg/dL Calcium 8.2 L (8.7-10.3) mg/dL Assessment and Plan Assessment: Status post left total hip arthroplasty postoperative day 1 period of unresponsiveness and CODE BLUE was called, however it looks like more vasovagal syncope versus other possibility not entirely excluded Acute urinary retention Leukocytosis likely due to postoperative surgical inflammation. Resolved completely Osteoarthritis History of right breast cancer s/p lumpectomy and radiation 2017 History of vertigo Anxiety/depression and panic disorder. Patient has a legal guardian. Prior history of smoking History of right breast cancer status postlumpectomy Plan: Check urine analysis Check a bladder scan Cardiology consult Echocardiogram follow-up Orthopedic primary team following closely Patient currently on aspirin 325 mg twice daily as per orthopedic primary team Labs and medication were reviewed.. Continue same treatment. Continue with symptomatic treatment. Resume home medication. Monitor labs and vitals. DVT and GI prophylaxis. Further recommendations as per clinical course of the patient Prognosis is guarded Time with Patient: Greater than 30
[2023-08-28] MEDS: TAMSULOSIN 0.4 MG CAP.ER.24H PO SCH (22:47)
--- NOTE | 2023-08-29 12:28 | P.PN ---
Subjective Progress Note Date: 08/29/23 This is a 72-year-old female who is status post left total hip arthroplasty. This is postoperative day #2 and patient is seen and evaluated at bedside today. Patient states that she was able to work with physical therapy today. Patient complains of soreness in the operative leg today, but otherwise denies any new complaints. Objective - Vital Signs Vital signs: Vital Signs Temp 98.6 F 08/29/23 07:17 Pulse 75 08/29/23 09:35 Resp 18 08/29/23 09:35 BP 103/58 08/29/23 07:17 Pulse Ox 96 08/29/23 07:17 FiO2 Intake & Output 08/28/23 08/29/23 08/29/23 18:59 06:59 18:59 Intake Total 780 1200 Output Total 900 500 200 Balance -113 772 5850 Weight 58.6 kg Intake: Intake, IV Titration 780 Amount Sodium Chloride 0.9% 1, 780 000 ml @ 65 mls/hr IV . [id number] [facility] Rx#:[id number] Oral 1200 Output: Urine 900 500 200 Straight 700 500 Other: # Voids 1 - Exam Vital signs are stable. Patient is in no acute distress and is alert and oriented 3. Calf is soft and nontender to palpation. Dressing is clean, dry, and intact. Patient has full foot and ankle motion without pain or difficulty. Sensation intact. Neurovascular status and circulatory status are intact. - Labs CBC & Chem 7: 08/28/23 05:00 08/28/23 05:00 Labs: Abnormal Lab Results - Last 24 Hours (Table) 08/28/23 Range/Units 17:00 Urine Appearance Cloudy H (Clear) Urine Protein Trace H (Negative) Urine Ketones Trace H (Negative) Ur Leukocyte Esterase Moderate H (Negative) Urine WBC 30 H (0-5) /hpf Calcium Oxalate Crystal Many H (None) /hpf Urine Mucus Many H (None) /hpf Assessment and Plan Assessment: History of closed reduction and intramedullary nailing of the left hip. Status post removal of left hip hardware and left total hip arthroplasty with direct anterior approach. (1) Osteoarthritis of left hip Current Visit: Yes Status: Acute Code(s): M16.12 - UNILATERAL PRIMARY OSTEOARTHRITIS, LEFT HIP SNOMED Code(s): 513810204351617 (2) S/P total hip arthroplasty Current Visit: Yes Status: Acute Code(s): Z96.649 - PRESENCE OF UNSPECIFIED ARTIFICIAL HIP JOINT SNOMED Code(s): 177578204719 Plan: Continue routine postop care and pain control. Continue anticoagulation with aspirin. Weightbearing as tolerated with a walker. Leave dressing in place for 7 days. Appreciate input from internal medicine. Anticipate discharge to ECF in the next 24-48 hours.
--- NOTE | 2023-08-29 13:14 | P.PN ---
Subjective HISTORY OF PRESENT ILLNESS: This is a 72-year-old female with a past medical history significant for anxiety, depression, panic disorder, and breast cancer with previous lumpectomy and radiation. Patient does not follow with a diesel engineer. We have been asked to see the patient in consultation for syncope. Patient examined at the bedside. Patient is status post left total hip arthroplasty with Dr. Edwards performed on 08/27/2023. Apparently, yesterday the patient was in the bathroom sitting on the toilet when she passed out. The patient does report that she had some lightheadedness. The patient apparently received 1 minute of CPR per documentation. However the patient is adamant that she never lost consciousness and that she did not receive CPR. She currently denies any chest pain or pressure. She denies any shortness of breath. Vital signs are stable. Telemetry reviewed revealing sinus mechanism. DIAGNOSTICS: - EKG reveals sinus mechanism with diffuse T wave inversions. - Chest xray negative for acute process. COPD changes. - Laboratory data: WBC 8.92. Hemoglobin 8.2. Platelet count 221. Sodium 141. Potassium 3.6. BUN 17. Creatinine 0.7. Troponin negative x 1 - Current home cardiac medications include none. - Most recent echocardiogram obtained in April 2021 revealing ejection fraction 60 to 65% with mild TR - Cardiac catheterization history: January 2019 revealing normal coronary arteries 08/28 patient seen and examined. Patient denies chest pain or pressure. Denies any shortness breath. Echocardiogram was attempted by [facility] yesterday however patient refusing, platelet off her EKG and telemetry strips and throwing them at photographic equipment technician, pulling out her own hair and throwing it at the photographic equipment technician. Therefore echo was canceled. PHYSICAL EXAM: VITAL SIGNS: Reviewed. GENERAL: Well-developed in no acute distress. HEENT: Head is normocephalic. Pupils are equal, round. Sclerae anicteric. Mucous membranes of the mouth are moist. Neck supple. No JVD or thyromegaly LUNGS: Respirations even and unlabored. Lungs essentially clear to auscultation bilaterally. HEART: Regular rate and rhythm. S1 and S2 heard. ABDOMEN: Soft. Nondistended. Nontender. EXTREMITIES: Normal range of motion. No clubbing or cyanosis. Peripheral pulses intact. No lower extremity edema NEUROLOGIC: Awake and alert. Oriented x 3. ASSESSMENT: Syncope; possibly vasovagal in nature Status post left total hip arthroplasty Abnormal EKG with diffuse t-wave inversions Normal coronary arteries, per cardiac catheterization January 2019 History of breast cancer with previous lumpectomy and radiation History of anxiety History of depression History of panic disorder PLAN: Patient refused echocardiogram Symptoms appear more consistent with vasovagal syncope Patient being noncompliant with further workup and no further workup at this point Appears stable for discharge home from a cardiology standpoint. No further recommendations, please call with questions. Objective - Vital Signs Vital signs: Vital Signs Temp 98.6 F 08/29/23 07:17 Pulse 75 08/29/23 09:35 Resp 18 08/29/23 09:35 BP 103/58 08/29/23 07:17 Pulse Ox 96 08/29/23 07:17 FiO2 Intake & Output 08/28/23 08/29/23 08/29/23 18:59 06:59 18:59 Intake Total 780 1200 Output Total 900 500 200 Balance -943 443 9000 Weight 58.6 kg Intake: Intake, IV Titration 780 Amount Sodium Chloride 0.9% 1, 780 000 ml @ 65 mls/hr IV . [id number] [facility] Rx#:[id number] Oral 1200 Output: Urine 900 500 200 Straight 700 500 Other: # Voids 1 - Labs CBC & Chem 7: 08/28/23 05:00 08/28/23 05:00 Labs: Abnormal Lab Results - Last 24 Hours (Table) 08/28/23 Range/Units 17:00 Urine Appearance Cloudy H (Clear) Urine Protein Trace H (Negative) Urine Ketones Trace H (Negative) Ur Leukocyte Esterase Moderate H (Negative) Urine WBC 30 H (0-5) /hpf Calcium Oxalate Crystal Many H (None) /hpf Urine Mucus Many H (None) /hpf
--- NOTE | 2023-08-29 22:24 | P.PN ---
Subjective Patient is a 72-year-old male with a past medical history of osteoarthritis, right breast cancer with lumpectomy and radiation in 2017, vertigo, cervical dysplasia in 1988, anxiety/depression with panic disorder, patient has a guardian and prior history of smoking was admitted to the hospital for elective left total hip arthroplasty. Patient is s/p left total hip arthroplasty with direct anterior approach. Postoperative 0 Currently denies any complaints of chest pain or shortness of breath. Dizziness or lightheadedness. Patient is drowsy. No complaints of nausea or vomiting. No cough or sputum production. Patient has been afebrile. Postoperatively blood pressure was 103/69 pulse 91 respiration 18 pulse ox 99% on 3 L oxygen via nasal cannula. Oxygen is being titrated down to room air. Laboratory data showed WBC 18.6 hemoglobin 10.2 and platelets 240 sodium 139 potassium 4.0 chloride 103 bicarb is 14 BUN 16 and creatinine 0.64 and blood sugar 179. 08/28/2023 Patient is a pleasant 72 years old lady with multiple medical problems including psychosis, depression, previous falls. Presents from home because of fall and severe osteoarthritis of left hip status post left total hip arthroplasty Postoperatively her hemoglobin was slightly low which is expected However yesterday evening and at nighttime she had periods of unresponsiveness in which code fluid was called and patient underwent CPR for 1 minute with return of spontaneous circulation, however short-lived code make it suspicious for syncope rather than cardiac arrest However currently she is fully awake and oriented, she feels somewhat weak but no distress, pain controlled. Denies chest pain or dyspnea or any other complaint Patient evaluated by senior water/wastewater engineer and they also think it is more vasovagal syncope Echocardiogram is ordered and pending Patient also has been complaining from some urinary retention status post straight cath, urine analysis slightly abnormal, and we will going to repeat the urine analysis and check a bladder scan 1 more time as per discussed with the night nurse Patient also looks malnourished and dietitian consult was obtained Elevated WBC 18,000 came back to 8.9, most likely reactive. Hemoglobin 10.2 came down to 8.1, postoperative anemia as expected 08/29/23 patient looks comfortable up in bed Mentation at baseline, she has insight she follows commands she is oriented to the surrounding She denies chest pain or dyspnea. No dizziness no headache no new weakness or numbness Able to ambulate with assistance Good appetite No other new complaint Hemodynamically stable Labs s reviewed Patient requested further workup. Including echo Patient medically stable She denies depression or suicidal ideation. No hallucination or delusions Objective - Vital Signs Vital signs: Vital Signs Temp 98.6 F 08/29/23 07:17 Pulse 75 08/29/23 09:35 Resp 18 08/29/23 09:35 BP 103/58 08/29/23 07:17 Pulse Ox 96 08/29/23 07:17 FiO2 Intake & Output 08/28/23 08/29/23 08/29/23 18:59 06:59 18:59 Intake Total 780 1200 Output Total 900 500 200 Balance -712 059 0730 Weight 58.6 kg Intake: Intake, IV Titration 780 Amount Sodium Chloride 0.9% 1, 780 000 ml @ 65 mls/hr IV . [id number] Rx#:[id number] Oral 1200 Output: Urine 900 500 200 Straight 700 500 Other: # Voids 1 - Exam -GENERAL: The patient is alert and oriented x3, not in any acute distress. Well developed, well nourished. Thin built HEENT: Pupils are round and equally reacting to light. EOMI. No scleral icterus. No conjunctival pallor. Normocephalic, atraumatic. No pharyngeal erythema. No thyromegaly. CARDIOVASCULAR: S1 and S2 present. No murmurs, rubs, or gallops. PULMONARY: Chest is clear to auscultation, no wheezing , no crackles. ABDOMEN: Soft, nontender, nondistended, normoactive bowel sounds. No palpable organomegaly. -MUSCULOSKELETAL: No joint swelling or deformity. Left hip wound with dressing in place, rest of exam is deferred to surgery team EXTREMITIES: No cyanosis, clubbing, or pedal edema. NEUROLOGICAL: Gross neurological examination did not reveal any focal deficits. SKIN: No rashes. no petechiae. - Labs CBC & Chem 7: 08/28/23 05:00 08/28/23 05:00 Labs: Abnormal Lab Results - Last 24 Hours (Table) 08/28/23 Range/Units 17:00 Urine Appearance Cloudy H (Clear) Urine Protein Trace H (Negative) Urine Ketones Trace H (Negative) Ur Leukocyte Esterase Moderate H (Negative) Urine WBC 30 H (0-5) /hpf Calcium Oxalate Crystal Many H (None) /hpf Urine Mucus Many H (None) /hpf Assessment and Plan Assessment: Status post left total hip arthroplasty postoperative day 1 period of unresponsiveness and CODE BLUE was called, however it looks like more vasovagal syncope versus other possibility not entirely excluded Acute urinary retention Leukocytosis likely due to postoperative surgical inflammation. Resolved completely Osteoarthritis History of right breast cancer s/p lumpectomy and radiation 2017 History of vertigo Anxiety/depression and panic disorder. Patient has a legal guardian. Prior history of smoking History of right breast cancer status postlumpectomy Plan: Patient denies new symptoms Cardiology consult Echocardiogram follow-up. However patient refused Orthopedic primary team following closely Patient currently on aspirin 325 mg twice daily as per orthopedic primary team Labs and medication were reviewed.. Continue same treatment. Continue with symptomatic treatment. Resume home medication. Monitor labs and vitals. DVT and GI prophylaxis. Further recommendations as per clinical course of the gary ent Prognosis is guarded Patient medically stable. Long-term prognosis is guarded
[2023-08-30 08:11] VITALS: BP 117/66; PULSE 89; RESP 17; TEMP 98.3
[2023-08-30 08:38] LABS: Basophils # (A) 0.03 X 10*3/uL (0.00-0.10); Basophils % (A) 0.4 %; Eosinophils # (A) 0.08 X 10*3/uL (0.04-0.35); HCT 22.5 % (37.2-46.3); HGB 7.4 g/dL (12.0-15.0); Lymphocytes # (A) 1.37 X 10*3/uL (0.90-5.00); Lymphocytes % (A) 17.1 %; MCH 29.7 pg (27.0-32.0); MCHC 32.9 g/dL (32.0-37.0); MCV 90.4 FL (80.0-97.0); Mean Platelet Volume 9.9 FL (9.5-12.2); Monocytes # (A) 0.85 X 10*3/uL (0.20-1.00); Monocytes % (A) 10.6 %; NRBC Per 100 WBC 0 X 10*3/uL (0.00-0.01); Neutrophils % (A) 69.8 %; Platelet Count 179 X 10*3/uL (140-440); RBC 2.49 X 10*6/uL (4.10-5.20); RDW 12.7 % (11.5-14.5); WBC 8.02 X 10*3/uL (4.50-10.00)
--- NOTE | 2023-08-30 09:06 | P.DS ---
Providers Date of admission: 08/27/23 07:20 Expected date of discharge: 08/30/23 Attending physician: Alonso Edwards Consults: 08/27/23 08:35 Consult Physician Routine Consulting Provider: Doretha Gan Consult Reason/Comments: medical management Do you want consulting provider notified?: Yes Primary care physician: Gamaliel Castañeda - Discharge Diagnosis(es) (1) Osteoarthritis of left hip Current Visit: Yes Status: Acute (2) S/P total hip arthroplasty Current Visit: Yes Status: Acute Hospital Course: This is a 72-year-old female with history of degenerative arthritis of the left hip. The patient has failed outpatient conservative treatment and presents to discuss surgical options. After discussion and consideration the patient elects to proceed with total left hip arthroplasty with direct anterior approach. The patient is evaluated preoperatively by the primary care physician and cleared for surgery. The patient is admitted to [facility] on 08/27/2023 for total left hip arthroplasty with direct anterior approach. The procedure is performed without complication or sequelae. She did have an episode of unresponsiveness and A-team was called. The patient has been cleared by cardiology.The patient is Currently doing well postoperatively. The patient may be discharged to Inpatient rehabilitation today in good condition. Please see med rec for accurate list of home medications. Plan - Discharge Summary Discharge Rx Participant: Yes New Discharge Prescriptions: New Sennosides [Senokot] 2 tab PO DAILY PRN #60 tablet PRN Reason: Constipation Aspirin 325 mg PO BID #60 tab HYDROcodone/APAP 7.5-325MG [Waka 7.5-325] 1 - 2 tab PO Q6H PRN #32 tab PRN Reason: Pain No Action Sertraline [Zoloft] 150 mg PO DAILY OLANZapine [ZyPREXA] 20 mg PO BID hydrOXYzine pamoate [Vistaril] 150 mg PO BID Discharge Medication List OLANZapine [ZyPREXA] 20 mg PO BID 08/20/22 [History] Sertraline [Zoloft] 150 mg PO DAILY 08/20/22 [History] hydrOXYzine pamoate [Vistaril] 150 mg PO BID 08/22/23 [History] Aspirin 325 mg PO BID #60 tab 08/27/23 [Rx] HYDROcodone/APAP 7.5-325MG [Waka 7.5-325] 1 - 2 tab PO Q6H PRN #32 tab 08/27/23 [Rx] Sennosides [Senokot] 2 tab PO DAILY PRN #60 tablet 08/27/23 [Rx] Follow up Appointment(s)/Referral(s): Alonso Edwards DO [Doctor of Osteopathic Medicine] - 09/11/23 9:50 am Activity/Diet/Wound Care/Special Instructions: Weightbearing as tolerated with walker. Leave dressing intact. Dressing may be removed by home care nurse or by patient in 7 days. Then change dressing twice daily until follow up. May shower with initial dressing intact and after removal. If dressing become saturated, please remove. Please take aspirin 325mg twice daily for 30 days to prevent blood clots. Recommend use of compression stockings daily until follow up to help prevent swelling and blood clots. May remove at night before sleeping. Please follow-up with [facility] in 2 weeks and call with any questions or concerns, . Discharge Disposition: TRANSFER TO SNF/ECF
--- NOTE | 2023-09-02 23:34 | CDI ---
Documentation Clarification Form Date: 09/02/2023 11:12:39 PM From: Katiana Brian Phone: Admit Date: 08/27/2023 07:20:00 AM Patient Name: Margarita Ennis Visit Number: [id number] Discharge Date: 08/30/2023 03:24:00 PM ATTENTION: The Clinical Documentation Specialists (CDI) and [facility] Coding Staff appreciate your assistance in clarifying documentation. Please respond to the clarification below the line at the bottom and electronically sign. The CDI & [facility] Coding staff will review the response and follow-up if needed. Please note: Queries are made part of the Legal Health Record. If you have any questions, please contact the author of this message via ITS. Doctor/Provider: Alex E Sheet Patient has a documented BMI of 18.5. Additional clarification is requested. History/Risk Factors: 72yo F, Severe OA LT hip, ABLA, vasovagal syncope, urinary retention, anxiety,depression,panic disorder, breast cancersp lumpectomy &radiation, former smoker Clinical Indicators: Patient looksmalnourished per Progress Note 08/27 and 08/28 Patients Weight 58.6 kg Patients height is 510 Calculated BMI is 18.5 Treatments: Ensure/Enlive offered but not consumed 08/29 breakfast not consumed; lunch 25% meal consumed; alternatives offered but refused 08/28 snacks refused; 0% breakfast; 25% lunch Please clarify, is there is an additional diagnosis that is clinically appropriate for this patient? [ ] Cachexia due to [ ] Underweight [ ] Malnutrition, (further specify severity and type) [ ] No additional diagnosis/not clinically significant [ ] Other, please specify [ x] Unable to determine (Template Last Revised: March 2020) MTDD
== END 2023-08-30 15:24 | DRG 467 ==
LOC: 2ORMAIN 07:20 → EEVIPCON 09:05 → EDSTATUS 09:05 → 4SSUR 13:57
PROVIDERS: ADMIT Orthopaedic Surgery; ATTEND Orthopaedic Surgery
PROC: 0SPB0JZ Removal of Synthetic Substitute from Left Hip Joint, Open Approach (ICD-10-PCS; 2023-08-27)
PROC: 0QH706Z Insertion of Intramedullary Internal Fixation Device into Left Upper Femur, Open Approach (ICD-10-PCS; 2023-08-27)
PROC: 5A12012 Performance of Cardiac Output, Single, Manual (ICD-10-PCS; 2023-08-27)
PROC: 0SRB06A Replacement of Left Hip Joint with Oxidized Zirconium on Polyethylene Synthetic Substitute, Uncemented, Open Approach (ICD-10-PCS; principal; 2023-08-27 09:05)
DX: M16.12 Unilateral primary osteoarthritis, left hip (principal); D62 Acute posthemorrhagic anemia; F29 Unspecified psychosis not due to a substance or known physiological condition; J44.9 Chronic obstructive pulmonary disease, unspecified; F32.A Depression, unspecified; D72.828 Other elevated white blood cell count; R94.31 Abnormal electrocardiogram [ECG] [EKG]; F41.0 Panic disorder [episodic paroxysmal anxiety]; R33.9 Retention of urine, unspecified; M25.752 Osteophyte, left hip; R55 Syncope and collapse; Z77.9 Other contact with and (suspected) exposures hazardous to health; Z87.891 Personal history of nicotine dependence; Z92.3 Personal history of irradiation; Z79.82 Long term (current) use of aspirin; Z91.81 History of falling; Z79.899 Other long term (current) drug therapy; Z87.410 Personal history of cervical dysplasia; Z85.3 Personal history of malignant neoplasm of breast; Z86.14 Personal history of Methicillin resistant Staphylococcus aureus infection
CPT/HCPCS: 64447; 71045; 73501; 73502; 80048; 81001; 83735; 84484; 85025; 92950; 94760